=== PATIENT | female | born 1950 | race Caucasian/White ===

== ENCOUNTER 2019-06-10 08:49 | Inpatient (IN) | payer MEDICARE ==
[2019-06-10] MEDS ORDERED: IPRATROPIUM-ALBUTEROL 3 ML NEB INHALATION STA (08:57)
--- NOTE | 2019-06-10 09:02 | ED ---
General Adult HPI - General Chief complaint: Shortness of Breath Stated complaint: FRANC Time Seen by Provider: 06/10/19 08:51 Source: patient, EMS, RN notes reviewed Mode of arrival: EMS Limitations: no limitations - History of Present Illness Initial comments: Patient is a pleasant 68-year-old female presenting to the emergency department with difficulty breathing. Onset of symptoms was a few days ago. Patient has had occasional fevers. Mild cough. Symptoms are similar to previous COPD. No chest pain. No leg pain or leg swelling. Patient had oxygen saturation in the upper 80s by EMS. Patient feels much improved with CPAP now BiPAP. Patient is on home oxygen at home. - Related Data Home Medications Medication Instructions Recorded Confirmed Albuterol Nebulized [Ventolin 2.5 mg INHALATION RT-Q4H PRN 05/22/19 06/10/19 Nebulized] Albuterol Sulfate [Proair Hfa] 1 - 2 puff INHALATION RT-Q6H PRN 05/22/19 06/10/19 Budesonide/Formoterol Fumarate 2 puff INHALATION RT-BID 05/22/19 06/10/19 [Symbicort 160-4.5 Mcg Inhaler] Levothyroxine Sodium [Synthroid] 88 mcg PO DAILY 05/22/19 06/10/19 Montelukast [Singulair] 10 mg PO HS 05/22/19 06/10/19 Pravastatin Sodium [Pravachol] 40 mg PO HS 05/22/19 06/10/19 Sertraline [Zoloft] 150 mg PO DAILY 05/22/19 06/10/19 Thyroid,Pork [Timekeeping Supervisor Thyroid] 30 mg PO DAILY 05/22/19 06/10/19 Tiotropium 18 Mcg/Puff [Spiriva] 1 puff INHALATION RT-DAILY 05/22/19 06/10/19 amLODIPine [Norvasc] 10 mg PO DAILY 05/22/19 06/10/19 glipiZIDE [Glucotrol] 10 mg PO AC-BID 05/22/19 06/10/19 Fluticasone Nasal [place] [Flonase 2 spr EA NOSTRIL DAILY 06/10/19 06/10/19 Nasal [place]] Previous Rx's Medication Instructions Recorded Ipratropium-Albuterol Nebulize 3 ml INHALATION QID ampul.neb 05/22/19 [Duoneb 0.5 mg-3 mg/3 ml Soln] Insulin Glargine [Lantus] 65 unit SQ HS #0 05/26/19 hydrALAZINE HCL 25 mg PO TID #90 tablet 05/26/19 Allergies Allergy/AdvReac Type Severity Reaction Status Date / Time Penicillins Allergy Anaphylaxis Verified 06/10/19 09:46 zolpidem [From Ambien] AdvReac Confusion Verified 06/10/19 09:46 Review of Systems ROS Statement: Those systems with pertinent positive or pertinent negative responses have been documented in the HPI. ROS Other: All systems not noted in ROS Statement are negative. Constitutional: Denies: fever Eyes: Denies: eye pain ENT: Denies: ear pain Respiratory: Reports: as per HPI, dyspnea Cardiovascular: Denies: chest pain Endocrine: Reports: fatigue Gastrointestinal: Denies: abdominal pain Genitourinary: Denies: dysuria Musculoskeletal: Denies: back pain Skin: Denies: rash Neurological: Denies: weakness Past Medical History Past Medical History: COPD, Diabetes Mellitus, Hypertension Additional Past Medical History / Comment(s): ARDS secondary to pneumonia more than 10 years ago requiring tracheostomy tube insertion, COPD with established FEV1 of 41% of predicted, diabetes mellitus, hypertension, history of morbid obesity History of Any Multi-Drug Resistant Organisms: None Reported Past Surgical History: Cholecystectomy, Hysterectomy Past Anesthesia/Blood Transfusion Reactions: No Reported Reaction Past Psychological History: No Psychological Hx Reported Smoking Status: Former smoker Past Alcohol Use History: None Reported Past Drug Use History: None Reported - Past Family History Mother Family Medical History: Congestive Heart Failure (CHF), Diabetes Mellitus Additional Family Medical History / Comment(s): The patient's mother had congestion heart failure and diabetes mellitus in the father had Parkinson's disease. General Exam Limitations: no limitations General appearance: alert, in no apparent distress Head exam: Present: atraumatic Eye exam: Present: normal appearance, PERRL Neck exam: Present: normal inspection Respiratory exam: Present: wheezes, decreased breath sounds, prolonged expiratory Cardiovascular Exam: Present: regular rate, normal rhythm GI/Abdominal exam: Present: soft. Absent: tenderness Extremities exam: Present: normal inspection. Absent: pedal edema, calf tenderness Neurological exam: Present: alert Psychiatric exam: Present: normal affect, normal mood Skin exam: Present: normal color Course Vital Signs 06/10/19 06/10/19 06/10/19 08:49 08:59 09:01 Temperature 98.5 F Pulse Rate 87 86 Respiratory 30 H 30 H 26 H Rate Blood Pressure 175/79 O2 Sat by Pulse 94 L Oximetry 06/10/19 09:12 Temperature Pulse Rate 86 Respiratory 20 Rate Blood Pressure O2 Sat by Pulse Oximetry EKG Findings - EKG Comments: EKG Findings:: Normal sinus rhythm with a rate of 88. GA 134. QRS 78. QT 328. QTC 396. Normal axis. Normal QRS. No acute ST change Medical Decision Making - Medical Decision Making Patient reevaluated and resting comfortably in bed on BiPAP. We'll attempt removal of BiPAP. Patient and family updated on results and plan. Case discussed in detail with Dr. Oliva, who will admit covering for Dr. Salas. - Lab Data Result diagrams: 06/10/19 09:08 06/10/19 09:08 Lab Results 06/10/19 06/10/19 06/10/19 Range/Units 09:08 09:08 09:08 WBC 8.9 (3.8-10.6) k/uL RBC 3.90 (3.80-5.40) m/uL Hgb 8.7 L D (11.4-16.0) gm/dL Hct 30.4 L (34.0-46.0) % MCV 78.0 L (80.0-100.0) fL MCH 22.3 L (25.0-35.0) pg MCHC 28.6 L (31.0-37.0) g/dL RDW 16.1 H (11.5-15.5) % Plt Count 123 L D (150-450) k/uL Neutrophils % 87 % Lymphocytes % 7 % Monocytes % 4 % Eosinophils % 1 % Basophils % 0 % Neutrophils # 7.7 (1.3-7.7) k/uL Lymphocytes # 0.6 L (1.0-4.8) k/uL Monocytes # 0.4 (0-1.0) k/uL Eosinophils # 0.1 (0-0.7) k/uL Basophils # 0.0 (0-0.2) k/uL Hypochromasia Marked Anisocytosis Slight Microcytosis Slight Sodium 137 (137-145) mmol/L Potassium 5.3 H (3.5-5.1) mmol/L Chloride 103 (98-107) mmol/L Carbon Dioxide 30 (22-30) mmol/L Anion Gap 4 mmol/L BUN 25 H (7-17) mg/dL Creatinine 1.15 H (0.52-1.04) mg/dL Est GFR (CKD-EPI)AfAm 57 (>60 ml/min/1.73 sqM) Est GFR (CKD-EPI)NonAf 49 (>60 ml/min/1.73 sqM) Glucose 298 H (74-99) mg/dL Calcium 8.8 (8.4-10.2) mg/dL Total Bilirubin 0.8 (0.2-1.3) mg/dL AST 18 (14-36) U/L ALT 28 (9-52) U/L Alkaline Phosphatase 83 (38-126) U/L NT-Pro-B Natriuret Pep 563 pg/mL Total Protein 5.7 L (6.3-8.2) g/dL Albumin 3.2 L (3.5-5.0) g/dL - Radiology Data Radiology results: image reviewed (Chest x-ray shows bilateral infiltrate and small effusion, correlate for interstitial chronic lung disease with possibility of superimposed pneumonitis or venous congestion. Patchy infiltrate left upper lobe.) Disposition Clinical Impression: COPD exacerbation, Multifocal pneumonia Disposition: ADMITTED IP TO THIS HOSP Is patient prescribed a controlled substance at d/c from ED?: No Referrals: Rhianna Salas DO [Primary Care Provider] - 1-2 days Decision Time: 11:09
--- NOTE | 2019-06-10 09:27 | XR ---
EXAMINATION TYPE: XR chest 1V portable DATE OF EXAM: 06/10/2019 COMPARISON: 05/25/2019 HISTORY: Shortness of breath TECHNIQUE: Single frontal view of the chest is obtained. FINDINGS: Interstitial pattern with cardiomegaly, bilateral infiltrate, and small effusion. More loc alized area of consolidation left upper lobe. Atherosclerotic change aorta. Pulmonary arteries are pr ominent correlate for pulmonary arterial hypertension. Underlying COPD suspected. IMPRESSION: Bilateral infiltrate and small effusion correlate for interstitial chronic lung disease with possibility of superimposed pneumonitis or venous congestion. Patchy infiltrate left upper lobe noted.
[2019-06-10 09:33] LABS: Anisocytosis Slight; Basophils % (A) 0 %; Eosinophils # (A) 0.1 k/uL (0-0.7); Eosinophils % (A) 1 %; HCT 30.4 % (34.0-46.0); Hypochromasia Marked; Lymphocytes # (A) 0.6 k/uL (1.0-4.8); Lymphocytes % (A) 7 %; MCH 22.3 pg (25.0-35.0); MCHC 28.6 g/dL (31.0-37.0); Mean Platelet Volume 6.9; Microcytosis Slight; Monocytes # (A) 0.4 k/uL (0-1.0); Monocytes % (A) 4 %; Neutrophils # (A) 7.7 k/uL (1.3-7.7); Neutrophils % (A) 87 %; RDW 16.1 % (11.5-15.5); WBC 8.9 k/uL (3.8-10.6)
[2019-06-10 09:36] LABS: Albumin 3.2 g/dL (3.5-5.0); Calcium 8.8 mg/dL (8.4-10.2); Potassium 5.3 mmol/L (3.5-5.1); Total Bilirubin 0.8 mg/dL (0.2-1.3); Total Protein 5.7 g/dL (6.3-8.2)
[2019-06-10 09:46] LABS: HGB 8.7 gm/dL (11.4-16.0)
[2019-06-10 09:58] LABS: Platelet Count 123 k/uL (150-450)
[2019-06-10] MEDS ORDERED: LEVOFLOXACIN 750MG-D5W PMX 750 MG in DEXTROSE/WATER 1 150ML.BAG IVPB STA (11:09)
[2019-06-10] MEDS ORDERED: PNEUMONIA PROTOCOL UTILIZED 1 EACH MISC PO PRN (11:09)
[2019-06-10] MEDS ORDERED: IPRATROPIUM-ALBUTEROL 3 ML NEB INHALATION PRN (11:09)
[2019-06-10] MEDS: SODIUM CHLORIDE 0.9% 1,000 ML IV SCH ×2 (11:55→20:22)
[2019-06-10] MEDS: IPRATROPIUM-ALBUTEROL 3 ML NEB INHALATION SCH ×3 (12:20→19:46)
[2019-06-10] MEDS: AZTREONAM 2 GM in SODIUM CHLORIDE 0.9% 100 ML IVPB SCH ×2 (14:46→20:21)
[2019-06-10] MEDS: amLODIPine 10 MG TAB PO SCH (15:48)
[2019-06-10] MEDS: hydrALAZINE HCL 25 MG TAB PO SCH ×2 (15:48→23:34)
[2019-06-10] MEDS: methylPREDNISolone SOD SUCCI 40 MG/ML 1 ML VIAL IV SCH ×2 (15:48→23:34)
[2019-06-10] MEDS: ACETAMINOPHEN TAB 325 MG TAB PO PRN (16:03)
--- NOTE | 2019-06-10 16:36 | P.CNPUL ---
<Amparo Crowder - Last Filed: 06/10/19 16:15> History of Present Illness Consult date: 06/10/19 Requesting physician: Sathish Banks Reason for consult: dyspnea, COPD, hypoxemia, pneumonia, abnormal CXR/CT Chief complaint: Shortness of breath, acute on chronic hypoxemia, low-grade fever History of present illness: This is a 68-year-old white female patient of Dr. Banks with history of advanced COPD, with baseline FEV1 of 0.76 L or 35% of predicted with severe diffusion abnormality, consistent with stage III COPD with chronic hypoxemic respiratory failure, patient wears 4 L of oxygen on a regular basis, other history includes diabetes, hypertension, hypothyroidism, obesity, previous episode of pneumonia with ARDS requiring intubation and mechanical ventilation, patient is a former smoker. Patient was recently hospitalized for pneumonia, the patient's chest x-ray showing bibasilar pulmonary infiltrates, patient was treated with a combination of cefepime and clindamycin, IV steroids, nebulized bronchodilators. She clinically improved, and was discharged home on 05/26/2019, on oral Cefdinir, prednisone taper. Patient is daughter lives with her and provides significant amount of support care and for her mother. She stated after the discharge patient was feeling good, until she finished the prednisone. 2 days after she finished the prednisone she started having increased nasal congestion, yesterday morning she started complaining of increased shortness of breath, she felt like she could not get air in, her daughter increased her oxygen flow to 5 L/m. She was giving him nebulized treatments, she then developed low-grade fevers, did have some cough with production of yellow sputum, she denied any chest pain, denied any hemoptysis, denied any nausea or vomiting, she did have a couple episodes of diarrhea, self- limiting. Patient complained of severe exertional dyspnea and desaturation into the low 80s, and this was also noted by the EMS staff. Chest x-ray was completely showing bilateral infiltrates and interstitial lung disease with possibility of superimposed pneumonitis or venous congestion, and patchy infiltrate in the left upper lobe, which is new from last chest x-ray. Lab work showed white blood cell count of 8.9, hemoglobin of 8.7, platelet count of 123, sodium is 137, potassium is 5.3, chloride is 103, CO2 is 30, BUN is 25, creatinine is 1.15, plasma lactic acid is 0.6, proBNP is within normal limits at 563. Patient is having diaphoresis, and sweating, she was placed on BiPAP support in view of the significantly increased work of breathing. Patient has been started on combination of Azactam and Levaquin, she has ALLERGIES to penicillins, blood cultures and sputum cultures have been sent and are pending at this time. Review of Systems All systems: negative Constitutional: Denies chills, Denies fever Eyes: denies blurred vision, denies pain Ears, nose, mouth and throat: Denies headache, Denies sore throat Cardiovascular: Denies chest pain, Denies shortness of breath Respiratory: Reports cough with sputum, Reports dyspnea, Reports home oxygen, Reports respiratory infections, Reports wheezing, Denies cough Gastrointestinal: Denies abdominal pain, Denies diarrhea, Denies nausea, Denies vomiting Genitourinary: Denies dysuria, Denies hematuria Musculoskeletal: Denies myalgias Integumentary: Denies pruritus, Denies rash Neurological: Denies numbness, Denies weakness Psychiatric: Denies anxiety, Denies depression Endocrine: Denies fatigue, Denies weight change Past Medical History Past Medical History: COPD, Diabetes Mellitus, Hypertension Additional Past Medical History / Comment(s): ARDS secondary to pneumonia more than 10 years ago requiring tracheostomy tube insertion, COPD with established FEV1 of 41% of predicted, diabetes mellitus, hypertension, history of morbid obesity History of Any Multi-Drug Resistant Organisms: None Reported Past Surgical History: Cholecystectomy, Hysterectomy Past Anesthesia/Blood Transfusion Reactions: No Reported Reaction Past Psychological History: No Psychological Hx Reported Smoking Status: Former smoker Past Alcohol Use History: None Reported Past Drug Use History: None Reported - Past Family History Mother Family Medical History: Congestive Heart Failure (CHF), Diabetes Mellitus Additional Family Medical History / Comment(s): The patient's mother had congestion heart failure and diabetes mellitus in the father had Parkinson's disease. Medications and Allergies Home Medications Medication Instructions Recorded Confirmed Type Albuterol Nebulized [Ventolin 2.5 mg INHALATION RT-Q4H PRN 05/22/19 06/10/19 History Nebulized] Albuterol Sulfate [Proair Hfa] 1 - 2 puff INHALATION RT-Q6H PRN 05/22/19 06/10/19 History Budesonide/Formoterol Fumarate 2 puff INHALATION RT-BID 05/22/19 06/10/19 History [Symbicort 160-4.5 Mcg Inhaler] Ipratropium-Albuterol Nebulize 3 ml INHALATION QID ampul.neb 05/22/19 06/10/19 Rx [Duoneb 0.5 mg-3 mg/3 ml Soln] Levothyroxine Sodium [Synthroid] 88 mcg PO DAILY 05/22/19 06/10/19 History Montelukast [Singulair] 10 mg PO HS 05/22/19 06/10/19 History Pravastatin Sodium [Pravachol] 40 mg PO HS 05/22/19 06/10/19 History Sertraline [Zoloft] 150 mg PO DAILY 05/22/19 06/10/19 History Thyroid,Pork [Wire Products Inspector Thyroid] 30 mg PO DAILY 05/22/19 06/10/19 History Tiotropium 18 Mcg/Puff [Spiriva] 1 puff INHALATION RT-DAILY 05/22/19 06/10/19 History amLODIPine [Norvasc] 10 mg PO DAILY 05/22/19 06/10/19 History glipiZIDE [Glucotrol] 10 mg PO AC-BID 05/22/19 06/10/19 History Insulin Glargine [Lantus] 65 unit SQ HS #0 05/26/19 06/10/19 Rx hydrALAZINE HCL 25 mg PO TID #90 tablet 05/26/19 06/10/19 Rx Fluticasone Nasal [place] [Flonase 2 spr EA NOSTRIL DAILY 06/10/19 06/10/19 History Nasal [place]] Allergies Allergy/AdvReac Type Severity Reaction Status Date / Time Penicillins Allergy Anaphylaxis Verified 06/10/19 09:46 zolpidem [From Ambien] AdvReac Confusion Verified 06/10/19 09:46 Physical Exam Vitals: Vital Signs Temp Pulse Pulse Resp BP BP Pulse Ox 06/10/19 16:04 98 06/10/19 16:00 99 F 91 18 194/85 95 06/10/19 15:26 91 26 H 06/10/19 15:16 90 27 H 06/10/19 14:59 98.4 F 103 H 22 180/79 93 L 06/10/19 12:37 90 09/03/19 12:22 91 06/10/19 12:00 80 18 171/69 91 L 06/10/19 11:32 95 06/10/19 09:12 86 20 06/10/19 09:01 86 26 H 06/10/19 08:59 30 H 06/10/19 08:49 98.5 F 87 30 H 175/79 94 L Intake and Output 06/10/19 06/10/19 06/10/19 06:59 14:59 22:59 Other: Weight 111.13 kg GENERAL EXAM: Alert, pleasant 68-year-old white female, 5 L of oxygen, easily desaturating to low 80s with any exertion even repositioning on the stretcher, intermittently going to BiPAP support, slightly diaphoretic and sweating, comfortable in no apparent distress. HEAD: Normocephalic/atraumatic. EYES: Normal reaction of pupils, equal size. Conjunctiva pink, sclera white. NOSE: Clear with pink turbinates. THROAT: No erythema or exudates. NECK: No masses, no JVD, no thyroid enlargement, no adenopathy. CHEST: No chest wall deformity. Symmetrical expansion. LUNGS: Equal air entry with scattered bibasilar crackles and diminished breath sounds with minimal end expiratory wheezing CVS: Regular rate and rhythm, normal S1 and S2, no gallops, no murmurs, no rubs ABDOMEN: Soft, nontender. No hepatosplenomegaly, normal bowel sounds, no guarding or rigidity. EXTREMITIES: No clubbing, no edema, no cyanosis, 2+ pulses and upper and lower extremities. MUSCULOSKELETAL: Muscle strength and tone normal. SPINE: No scoliosis or deformity SKIN: No rashes CENTRAL NERVOUS SYSTEM: Alert and oriented -3. No focal deficits, tone is normal in all 4 extremities. PSYCHIATRIC: Alert and oriented -3. Appropriate affect. Intact judgment and insight. Results - Laboratory Findings CBC and BMP: 06/10/19 09:08 06/10/19 09:08 Abnormal lab findings: Abnormal Labs 06/10/19 06/10/19 06/10/19 09:08 09:08 11:45 Hgb 8.7 L D Hct 30.4 L MCV 78.0 L MCH 22.3 L MCHC 28.6 L RDW 16.1 H Plt Count 123 L D Lymphocytes # 0.6 L Potassium 5.3 H BUN 25 H Creatinine 1.15 H Glucose 298 H Plasma Lactic Acid Uday 0.6 L Total Protein 5.7 L Albumin 3.2 L - Diagnostic Findings Chest x-ray: report reviewed Assessment and Plan Plan: Assessment: #1. Acute on chronic hypoxemic respiratory failure secondary to acute pneumonia involving the left lung and interstitial lung disease/pneumonitis #2. Acute exacerbation of advanced chronic obstructive pulmonary disease related to the above #3. Recent hospitalization for acute community acquired pneumonia involving bilateral lower lobes, she was treated with clindamycin and cefepime and discharged home on oral Omnicef #4. History of stage III COPD, with the baseline FEV1 of 0.76 L or 35% of predicted with severe diffusion abnormality, she is on chronic home oxygen at 4 L #5. Morbid obesity with a BMI of 44.8 kg/m #6. Diabetes mellitus type 2 #7. Hypothyroidism #8. Impaired performance and functional status secondary to poor lung function and multiple other chronic comorbidities Plan: Agree with current antibiotic coverage, will await the results the blood and sp utum culture, agree with IV Solu-Medrol, nebulized bronchodilators, [place], we will add Perforomist, will restart patient's home meds including her antihypertensives. Pro-calcitonin level has been ordered and sent and is pending at this time, blood cultures and sputum cultures are pending, and cont inue BiPAP support at current settings of 10 and 5 and FiO2 of 40% as needed for increased respiratory work of breathing and fatigue. Monitor fever pattern, blood pressure, and EKG rhythm. Lactic acid is nonelevated, mentation is appropriate, no evidence of delirium. BNP was not elevated, making the possibility of congestive heart failure not likely. We will add GI and DVT prophylaxis. We'll continue to follow and P statement I performed a history & physical examination of the patient and discussed their management with my nurse practitioner, Amparo Crowder. I reviewed the nurse practitioner's note and agree with the documented findings and plan of care. Lung sounds are diminished, with expiratory wheezes. The findings and the impression was discussed with the patient. I attest to the documentation by the nurse practitioner. Time with Patient: Greater than 30 <Juan Cunningham - Last Filed: 06/11/19 07:21> Physical Exam Vitals: Vital Signs Temp Pulse Pulse Resp BP BP Pulse Ox 06/11/19 04:00 98 F 85 20 185/85 97 06/11/19 00:00 86 18 151/76 95 06/10/19 20:24 92 06/10/19 20:10 92 06/10/19 20:09 90 06/10/19 20:00 97.6 F 95 18 176/73 93 L 06/10/19 19:53 90 24 06/10/19 19:52 92 L 06/10/19 16:04 98 06/10/19 16:00 99 F 91 18 194/85 95 06/10/19 15:26 91 26 H 06/10/19 15:16 90 27 H 06/10/19 14:59 98.4 F 103 H 22 180/79 93 L 06/10/19 12:37 90 06/10/19 12:22 91 06/10/19 12:00 80 18 171/69 91 L 06/10/19 11:32 95 06/10/19 09:12 86 20 06/10/19 09:01 86 26 H 06/10/19 08:59 30 H 06/10/19 08:49 98.5 F 87 30 H 175/79 94 L Intake and Output 06/10/19 06/11/19 06/11/19 22:59 06:59 14:59 Intake Total 100.533 Balance 100.533 Intake: Intake, IV Titration 100.533 Amount Insulin Regular 100 unit 100.533 In Sodium Chloride 0.9% 100 ml @ Titrate IV .Q0M [facility] Rx#:[id number] Other: # Voids 2 Weight 116.9 kg Results - Laboratory Findings CBC and BMP: 06/10/19 09:08 06/10/19 09:08 Abnormal lab findings: Abnormal Labs 06/10/19 06/10/19 06/10/19 09:08 09:08 09:08 Hgb 8.7 L D Hct 30.4 L MCV 78.0 L MCH 22.3 L MCHC 28.6 L RDW 16.1 H Plt Count 123 L D Lymphocytes # 0.6 L Potassium 5.3 H BUN 25 H Creatinine 1.15 H Glucose 298 H POC Glucose (mg/dL) Plasma Lactic Acid Uday Total Protein 5.7 L Albumin 3.2 L Procalcitonin 0.54 H 06/10/19 06/10/19 06/10/19 11:45 16:55 21:15 Hgb Hct MCV MCH MCHC RDW Plt Count Lymphocytes # Potassium BUN Creatinine Glucose POC Glucose (mg/dL) 493 H >600 H Plasma Lactic Acid Uday 0.6 L Total Protein Albumin Procalcitonin 06/10/19 06/10/19 06/11/19 21:30 23:16 00:18 Hgb Hct MCV MCH MCHC RDW Plt Count Lymphocytes # Potassium BUN Creatinine Glucose POC Glucose (mg/dL) 590 H 564 H 565 H Plasma Lactic Acid Udya Total Protein Albumin Procalcitonin 06/11/19 06/11/19 06/11/19 00:49 01:19 01:49 Hgb Hct MCV MCH MCHC RDW Plt Count Lymphocytes # Potassium BUN Creatinine Glucose POC Glucose (mg/dL) 465 H 391 H 337 H Plasma Lactic Acid Uday Total Protein Albumin Procalcitonin 06/11/19 06/11/19 06/11/19 02:16 02:45 05:23 Hgb Hct MCV MCH MCHC RDW Plt Count Lymphocytes # Potassium BUN Creatinine Glucose POC Glucose (mg/dL) 259 H 235 H 230 H Plasma Lactic Acid Uday Total Protein Albumin Procalcitonin Assessment and Plan Plan: Doubt any ILD and the presentation is either consistent with interstitial pneumonia or fluid. Will continue ABX and will diurese the patient and will FU the CXR. Will consider a bronchoscopy if no improvement in the pulmonary status
[2019-06-10 16:59] LABS: Glucose,Whole Blood 493 mg/dL (75-99)
[2019-06-10] MEDS: HEPARIN SODIUM,PORCINE 5,000 UNIT/ML 1 ML VIAL SQ SCH (18:07)
[2019-06-10] MEDS: PANTOPRAZOLE 40 MG/10 ML VIAL IVP SCH (18:08)
[2019-06-10] MEDS: INSULIN ASPART (NovoLOG) 100 UNIT/ML VIAL SQ SCH (18:08)
[2019-06-10] MEDS ORDERED: ARTIFICIAL TEARS-HYPROMELLOSE DROPS 15 ML BTL BOTH EYES PRN (19:26)
[2019-06-10] MEDS: BUDESONIDE 1 MG/2 ML NEBU INHALATION SCH (19:46)
[2019-06-10] MEDS: FORMOTEROL FUMARATE 20 MCG/2 ML NEBU INHALATION SCH (19:46)
[2019-06-10] MEDS: MONTELUKAST 10 MG TAB PO SCH (20:22)
[2019-06-10] MEDS: PRAVASTATIN SODIUM 40 MG TAB PO SCH (20:22)
[2019-06-10] MEDS ORDERED: NON-FORMULARY DRUG (Insulin Glargine 45 UNIT) SQ SCH (21:00)
[2019-06-10] MEDS ORDERED: INSULIN DETEMIR (LEVEMIR) 100 UNIT/ML SYR SQ SCH (21:00)
[2019-06-10 21:16] LABS: Glucose,Whole Blood >600 mg/dL (75-99)
[2019-06-10 21:32] LABS: Glucose,Whole Blood 590 mg/dL (75-99)
[2019-06-10 23:17] LABS: Glucose,Whole Blood 564 mg/dL (75-99)
[2019-06-10] MEDS: INSULIN REGULAR 100 UNIT in SODIUM CHLORIDE 0.9% 100 ML IV SCH (23:31)
[2019-06-11] MEDS: HEPARIN SODIUM,PORCINE 5,000 UNIT/ML 1 ML VIAL SQ SCH ×3 (00:20→16:56)
[2019-06-11 00:30] LABS: Glucose,Whole Blood 565 mg/dL (75-99)
[2019-06-11 00:50] LABS: Glucose,Whole Blood 465 mg/dL (75-99)
[2019-06-11 01:21] LABS: Glucose,Whole Blood 391 mg/dL (75-99)
[2019-06-11 01:50] LABS: Glucose,Whole Blood 337 mg/dL (75-99)
[2019-06-11 02:18] LABS: Glucose,Whole Blood 259 mg/dL (75-99)
[2019-06-11 02:47] LABS: Glucose,Whole Blood 235 mg/dL (75-99)
[2019-06-11] MEDS: INSULIN REGULAR 100 UNIT in SODIUM CHLORIDE 0.9% 100 ML IV SCH ×3 (05:24→22:25)
[2019-06-11] MEDS: AZTREONAM 2 GM in SODIUM CHLORIDE 0.9% 100 ML IVPB SCH ×3 (05:25→20:06)
[2019-06-11 05:26] LABS: Glucose,Whole Blood 230 mg/dL (75-99)
[2019-06-11] MEDS: LEVOTHYROXINE 88 MCG TAB PO SCH (07:00)
[2019-06-11] MEDS: SODIUM CHLORIDE 0.9% 1,000 ML IV SCH ×2 (07:00→20:06)
[2019-06-11 07:30] LABS: Glucose,Whole Blood 315 mg/dL (75-99)
[2019-06-11] MEDS: IPRATROPIUM-ALBUTEROL 3 ML NEB INHALATION SCH ×4 (07:46→19:49)
[2019-06-11] MEDS: BUDESONIDE 1 MG/2 ML NEBU INHALATION SCH ×2 (07:46→19:50)
[2019-06-11] MEDS: FORMOTEROL FUMARATE 20 MCG/2 ML NEBU INHALATION SCH ×2 (07:46→19:49)
--- NOTE | 2019-06-11 08:37 | XR ---
EXAMINATION TYPE: XR chest 2V DATE OF EXAM: 06/11/2019 COMPARISON: 06/10/2019 HISTORY: Pneumonia. Follow-up exam. Shortness of breath. TECHNIQUE: Frontal and lateral views of the chest are obtained. FINDINGS: There is redemonstration of multifocal patchy opacities predominating within the lower jasper gs and left upper lateral lung. Moderate interstitial pulmonary edema and pulmonary vascular congesti on are stable. Cardiomediastinal silhouette is enlarged. Pulmonary per inflation and flattening of th e diaphragms represents underlying COPD. Minimal degenerative changes of the spine. IMPRESSION: Redemonstration of moderate interstitial pulmonary edema and pulmonary vascular congesti on, fluid overload and multifocal opacities may represent confluent edema or multifocal pneumonia. Un derlying COPD.
[2019-06-11] MEDS: PANTOPRAZOLE 40 MG/10 ML VIAL IVP SCH (08:48)
[2019-06-11] MEDS: amLODIPine 10 MG TAB PO SCH (08:49)
[2019-06-11] MEDS: methylPREDNISolone SOD SUCCI 40 MG/ML 1 ML VIAL IV SCH ×3 (08:49→23:00)
[2019-06-11] MEDS: hydrALAZINE HCL 25 MG TAB PO SCH ×3 (08:49→22:58)
[2019-06-11] MEDS: SERTRALINE 100 MG TAB PO SCH (08:49)
[2019-06-11] MEDS: THYROID, PORK 30 MG TAB PO SCH (08:50)
[2019-06-11] MEDS: FUROSEMIDE 10 MG/ML 4 ML VIAL IV SCH ×3 (08:50→23:00)
[2019-06-11] MEDS ORDERED: THYROID, PORK 30 MG TAB PO SCH (09:00)
[2019-06-11] MEDS ORDERED: amLODIPine 10 MG TAB PO SCH (09:00)
--- NOTE | 2019-06-11 09:09 | P.HPIM ---
History of Present Illness H&P Date: 06/11/19 Nicole Moran is a 68-year-old female with a past medical history significant for stage III COPD, chronic hypoxic respiratory failure on 4 L home oxygen, type 2 diabetes, hypothyroid, hypertension, history of ARDS requiring intubation and mechanical ventilation. She presents to the emergency department with shortness of breath and increased oxygen requirements over the past few days. She was recently admitted for multifocal pneumonia and treated at that time with cefepime, IV steroids, clindamycin, inhaled bronchodilators; patient was discharged with steroid taper and Omnicef. She states she initially felt well but after she completed her steroids she began to experience increased secretion s and shortness of breath. Yesterday she required 5 L oxygen and so presented to the emergency department. She also complains of low-grade fevers at home and chills with T-max of 99. She is a former smoker. In the ED she was tachypneic and hypoxic chest x-ray showed multifocal pneumonia with bilateral infiltrates and interstitial prominence WBC 8.9 BNP 550 pro calcitonin 0.5. Patient initially required BiPAP but was transitioned to high flow. She was started on aztreonam and Levaquin, as well as IV Solu-Medrol and inhaled steroids and DuoNeb's. Today, she feels her breathing is improved and oxygen requirements are currently at 6 L O2. Past Medical History Past Medical History: COPD, Diabetes Mellitus, Hypertension Additional Past Medical History / Comment(s): ARDS secondary to pneumonia more than 10 years ago requiring tracheostomy tube insertion, COPD with established FEV1 of 41% of predicted, diabetes mellitus, hypertension, history of morbid obesity History of Any Multi-Drug Resistant Organisms: None Reported Past Surgical History: Cholecystectomy, Hysterectomy Past Anesthesia/Blood Transfusion Reactions: No Reported Reaction Past Psychological History: No Psychological Hx Reported Smoking Status: Former smoker Past Alcohol Use History: None Reported Past Drug Use History: None Reported - Past Family History Mother Family Medical History: Congestive Heart Failure (CHF), Diabetes Mellitus Additional Family Medical History / Comment(s): The patient's mother had congestion heart failure and diabetes mellitus in the father had Parkinson's disease. Medications and Allergies Home Medications Medication Instructions Recorded Confirmed Type Albuterol Nebulized [Ventolin 2.5 mg INHALATION RT-Q4H PRN 05/22/19 06/10/19 History Nebulized] Albuterol Sulfate [Proair Hfa] 1 - 2 puff INHALATION RT-Q6H PRN 05/22/19 06/10/19 History Budesonide/Formoterol Fumarate 2 puff INHALATION RT-BID 05/22/19 06/10/19 History [Symbicort 160-4.5 Mcg Inhaler] Ipratropium-Albuterol Nebulize 3 ml INHALATION QID ampul.neb 05/22/19 06/10/19 Rx [Duoneb 0.5 mg-3 mg/3 ml Soln] Levothyroxine Sodium [Synthroid] 88 mcg PO DAILY 05/22/19 06/10/19 History Montelukast [Singulair] 10 mg PO HS 05/22/19 06/10/19 History Pravastatin Sodium [Pravachol] 40 mg PO HS 05/22/19 06/10/19 History Sertraline [Zoloft] 150 mg PO DAILY 05/22/19 06/10/19 History Thyroid,Pork [[employer] Thyroid] 30 mg PO DAILY 05/22/19 06/10/19 History Tiotropium 18 Mcg/Puff [Spiriva] 1 puff INHALATION RT-DAILY 05/22/19 06/10/19 History amLODIPine [Norvasc] 10 mg PO DAILY 05/22/19 06/10/19 History glipiZIDE [Glucotrol] 10 mg PO AC-BID 05/22/19 06/10/19 History Insulin Glargine [Lantus] 65 unit SQ HS #0 05/26/19 06/10/19 Rx hydrALAZINE HCL 25 mg PO TID #90 tablet 05/26/19 06/10/19 Rx Fluticasone Nasal [place] [Flonase 2 spr EA NOSTRIL DAILY 06/10/19 06/10/19 History Nasal [place]] Allergies Allergy/AdvReac Type Severity Reaction Status Date / Time Penicillins Allergy Anaphylaxis Verified 06/10/19 09:46 zolpidem [From Ambien] AdvReac Confusion Verified 06/10/19 09:46 Physical Exam Vitals: Vital Signs Temp Pulse Pulse Resp BP BP Pulse Ox 06/11/19 08:12 88 06/11/19 08:03 84 06/11/19 08:02 84 06/11/19 07:50 80 96 06/11/19 04:00 98 F 85 20 185/85 97 06/11/19 00:00 86 18 151/76 95 06/10/19 20:24 92 06/10/19 20:10 92 06/10/19 20:09 90 06/10/19 20:00 97.6 F 95 18 176/73 93 L 06/10/19 19:53 90 24 06/10/19 19:52 92 L 06/10/19 16:04 98 06/10/19 16:00 99 F 91 18 194/85 95 06/10/19 15:26 91 26 H 06/10/19 15:16 90 27 H 06/10/19 14:59 98.4 F 103 H 22 180/79 93 L 06/10/19 12:37 90 06/10/19 12:22 91 06/10/19 12:00 80 18 171/69 91 L 06/10/19 11:32 95 06/10/19 09:12 86 20 06/10/19 09:01 86 26 H 06/10/19 08:59 30 H Intake and Output 06/10/19 06/11/19 06/11/19 22:59 06:59 14:59 Intake Total 100.533 600 Balance 100.533 600 Intake: Intake, IV Titration 100.533 Amount Insulin Regular 100 unit 100.533 In Sodium Chloride 0.9% 100 ml @ Titrate IV .Q0M [facility] Rx#:[id number] Oral 600 Other: # Voids 2 Weight 116.9 kg General: non toxic, no distress, appears at stated age Derm: warm, dry Head: atraumatic, normocephalic, symmetric Eyes: EOMI, no lid lag, anicteric sclera Mouth: no lip lesion, mucus membranes moist Cardiovascular: S1S2 reg, systolic murmur, positive posterior tibial pulse bilateral, Lungs: Poor air entry, rhonchi throughout, no rales, no accessory muscle use Abdominal: soft, nontender to palpation, no guarding, no appreciable organome sofia Ext: no gross muscle atrophy, 1+ edema, no contractures Neuro: CN II-XI grossly intact, no focal neuro deficits Psych: Alert, oriented, appropriate affect Results CBC & Chem 7: 06/10/19 09:08 06/10/19 09:08 Labs: Abnormal Lab Results - Last 24 Hours (Table) 06/10/19 06/10/19 06/10/19 Range/Units 09:08 09:08 09:08 Hgb 8.7 L D (11.4-16.0) gm/dL Hct 30.4 L (34.0-46.0) % MCV 78.0 L (80.0-100.0) fL MCH 22.3 L (25.0-35.0) pg MCHC 28.6 L (31.0-37.0) g/dL RDW 16.1 H (11.5-15.5) % Plt Count 123 L D (150-450) k/uL Lymphocytes # 0.6 L (1.0-4.8) k/uL Potassium 5.3 H (3.5-5.1) mmol/L BUN 25 H (7-17) mg/dL Creatinine 1.15 H (0.52-1.04) mg/dL Glucose 298 H (74-99) mg/dL POC Glucose (mg/dL) (75-99) mg/dL Plasma Lactic Acid Uday (0.7-2.0) mmol/L Total Protein 5.7 L (6.3-8.2) g/dL Albumin 3.2 L (3.5-5.0) g/dL Procalcitonin 0.54 H (0.02-0.09) ng/mL 06/10/19 06/10/19 06/10/19 Range/Units 11:45 16:55 21:15 Hgb (11.4-16.0) gm/dL Hct (34.0-46.0) % MCV (80.0-100.0) fL MCH (25.0-35.0) pg MCHC (31.0-37.0) g/dL RDW (11.5-15.5) % Plt Count (150-450) k/uL Lymphocytes # (1.0-4.8) k/uL Potassium (3.5-5.1) mmol/L BUN (7-17) mg/dL Creatinine (0.52-1.04) mg/dL Glucose (74-99) mg/dL POC Glucose (mg/dL) 493 H >600 H (75-99) mg/dL Plasma Lactic Acid Uday 0.6 L (0.7-2.0) mmol/L Total Protein (6.3-8.2) g/dL Albumin (3.5-5.0) g/dL Procalcitonin (0.02-0.09) ng/mL 06/10/19 06/10/19 06/11/19 Range/Units 21:30 23:16 00:18 Hgb (11.4-16.0) gm/dL Hct (34.0-46.0) % MCV (80.0-100.0) fL MCH (25.0-35.0) pg MCHC (31.0-37.0) g/dL RDW (11.5-15.5) % Plt Count (150-450) k/uL Lymphocytes # (1.0-4.8) k/uL Potassium (3.5-5.1) mmol/L BUN (7-17) mg/dL Creatinine (0.52-1.04) mg/dL Glucose (74-99) mg/dL POC Glucose (mg/dL) 590 H 564 H 565 H (75-99) mg/dL Plasma Lactic Acid Uday (0.7-2.0) mmol/L Total Protein (6.3-8.2) g/dL Albumin (3.5-5.0) g/dL Procalcitonin (0.02-0.09) ng/mL 06/11/19 06/11/19 06/11/19 Range/Units 00:49 01:19 01:49 Hgb (11.4-16.0) gm/dL Hct (34.0-46.0) % MCV (80.0-100.0) fL MCH (25.0-35.0) pg MCHC (31.0-37.0) g/dL RDW (11.5-15.5) % Plt Count (150-450) k/uL Lymphocytes # (1.0-4.8) k/uL Potassium (3.5-5.1) mmol/L BUN (7-17) mg/dL Creatinine (0.52-1.04) mg/dL Glucose (74-99) mg/dL POC Glucose (mg/dL) 465 H 391 H 337 H (75-99) mg/dL Plasma Lactic Acid Uday (0.7-2.0) mmol/L Total Protein (6.3-8.2) g/dL Albumin (3.5-5.0) g/dL Procalcitonin (0.02-0.09) ng/mL 06/11/19 06/11/19 06/11/19 Range/Units 02:16 02:45 05:23 Hgb (11.4-16.0) gm/dL Hct (34.0-46.0) % MCV (80.0-100.0) fL MCH (25.0-35.0) pg MCHC (31.0-37.0) g/dL RDW (11.5-15.5) % Plt Count (150-450) k/uL Lymphocytes # (1.0-4.8) k/uL Potassium (3.5-5.1) mmol/L BUN (7-17) mg/dL Creatinine (0.52-1.04) mg/dL Glucose (74-99) mg/dL POC Glucose (mg/dL) 259 H 235 H 230 H (75-99) mg/dL Plasma Lactic Acid Uday (0.7-2.0) mmol/L Total Protein (6.3-8.2) g/dL Albumin (3.5-5.0) g/dL Procalcitonin (0.02-0.09) ng/mL 06/11/19 Range/Units 07:28 Hgb (11.4-16.0) gm/dL Hct (34.0-46.0) % MCV (80.0-100.0) fL MCH (25.0-35.0) pg MCHC (31.0-37.0) g/dL RDW (11.5-15.5) % Plt Count (150-450) k/uL Lymphocytes # (1.0-4.8) k/uL Potassium (3.5-5.1) mmol/L BUN (7-17) mg/dL Creatinine (0.52-1.04) mg/dL Glucose (74-99) mg/dL POC Glucose (mg/dL) 315 H (75-99) mg/dL Plasma Lactic Acid Uday (0.7-2.0) mmol/L Total Protein (6.3-8.2) g/dL Albumin (3.5-5.0) g/dL Procalcitonin (0.02-0.09) ng/mL Assessment and Plan (1) COPD exacerbation Current Visit: Yes Status: Acute Code(s): J44.1 - CHRONIC OBSTRUCTIVE PULMONARY DISEASE W (ACUTE) EXACERBATION SNOMED Code(s): 713629779 (2) Multifocal pneumonia Current Visit: Yes Status: Acute Code(s): J18.9 - PNEUMONIA, UNSPECIFIED ORGANISM SNOMED Code(s): 942409481 (3) Acute respiratory failure with hypoxia Current Visit: No Status: Acute Code(s): J96.01 - ACUTE RESPIRATORY FAILURE WITH HYPOXIA SNOMED Code(s): 95149605 (4) Hypothyroid Current Visit: No Status: Acute Code(s): E03.9 - HYPOTHYROIDISM, UNSPECIFIED SNOMED Code(s): 09238553 (5) Type 2 diabetes mellitus Current Visit: No Status: Acute Code(s): E11.9 - TYPE 2 DIABETES MELLITUS WITHOUT COMPLICATIONS SNOMED Code(s): 06832932 Plan: 1. Acute hypoxic respiratory failure. Secondary to pneumonia. procalcitonin 0.5. Blood culture and sputum culture sent. Continue aztreonam and Levaquin. DuoNeb's, inhaled corticosteroids, IV Solu-Medrol 2. Multifocal pneumonia. Pulmonology consulted, AM CXR 3. COPD exacerbation 4. T2DM. Insulin gtt with IV steroids 5. HTN, hypothyroid. Continue home medications
[2019-06-11 09:30] LABS: Glucose,Whole Blood 379 mg/dL (75-99)
[2019-06-11 10:07] LABS: Calcium 8.8 mg/dL (8.4-10.2); Potassium 5.5 mmol/L (3.5-5.1)
[2019-06-11 10:20] LABS: Anisocytosis Slight; Basophils % (A) 0 %; Eosinophils % (A) 0 %; HCT 28.8 % (34.0-46.0); HGB 8.4 gm/dL (11.4-16.0); Hypochromasia Marked; Lymphocytes # (A) 0.3 k/uL (1.0-4.8); Lymphocytes % (A) 4 %; MCH 22.3 pg (25.0-35.0); MCHC 29.1 g/dL (31.0-37.0); MCV 76.5 fL (80.0-100.0); Mean Platelet Volume 6.7; Microcytosis Slight; Monocytes # (A) 0.2 k/uL (0-1.0); Monocytes % (A) 2 %; Neutrophils % (A) 93 %; Platelet Count 122 k/uL (150-450); RBC 3.76 m/uL (3.80-5.40); RDW 16.5 % (11.5-15.5); WBC 7.5 k/uL (3.8-10.6)
[2019-06-11 11:37] LABS: Glucose,Whole Blood 378 mg/dL (75-99)
--- NOTE | 2019-06-11 13:01 | ECHOF ---
Referral Reason:shortness of breath MEASUREMENTS -------- HEIGHT: 157.5 cm WEIGHT: 116.6 kg BP: 185/85 RVIDd: 2.5 cm (< 3.3) IVSd: 1.2 cm (0.6 - 1.1) LVIDd: 4.1 cm (3.9 - 5.3) LVPWd: 1.5 cm (0.6 - 1.1) IVSs: 1.6 cm LVIDs: 2.9 cm LVPWs: 1.8 cm LAESV Index (A-L): 29.50 ml/m Ao Diam: 3.0 cm (2.0 - 3.7) AV Cusp: 2.0 cm (1.5 - 2.6) LA Diam: 3.1 cm (2.7 - 3.8) MV EXCURSION: 9.892 mm (> 18.000) MV EF SLOPE: 86 mm/s (70 - 150) EPSS: 0.5 cm MV E Anjum: 1.06 m/s MV DecT: 208 ms MV A Anjum: 1.19 m/s MV E/A Ratio: 0.90 AV maxP.01 mmHg AV meanP.24 mmHg RAP: 5.00 mmHg RVSP: 44.53 mmHg FINDINGS -------- Sinus rhythm. This was a technically good study. The left ventricular size is normal. There is moderate concentric left ventricular hypertrophy. O verall left ventricular systolic function is normal with, an EF between 55 - 60 %. The diastolic fi lling pattern is normal for the age of the patient {E/E'}. The right ventricle is normal in size. LA is midly dilated 29-33ml/m2. The right atrial size is normal. Aneurysmal Interatrial septum. Aortic valve is trileaflet and is mildly thickened. There is mild aortic valve sclerosis. Peak/me an gradient across the Aortic Valve is 16.01mmHg / 8.24mmHg. The mitral valve is normal. The mitral valve leaflets are mildly thickened. Mild mitral regurgita tion is present. The tricuspid valve appears structurally normal. Mild tricuspid regurgitation present. There is m ild pulmonary hypertension. The right ventricular systolic pressure, as measured by Doppler, is 44. 53mmHg. There is no pulmonic regurgitation present. The aortic root size is normal. Normal inferior vena cava with normal inspiratory collapse consistent with estimated right atrial pre ssure of 5 mmHg. The flow patterns, measured by Doppler, appear normal. There is no pericardial effusion. CONCLUSIONS -------- 1. Sinus rhythm. 2. This was a technically good study. 3. The left ventricular size is normal. 4. There is moderate concentric left ventricular hypertrophy. 5. Overall left ventricular systolic function is normal with, an EF between 55 - 60 %. 6. The right ventricle is normal in size. 7. LA is midly dilated 29-33ml/m2. 8. The right atrial size is normal. 9. Aneurysmal Interatrial septum. 10. Aortic valve is trileaflet and is mildly thickened. 11. There is mild aortic valve sclerosis. 12. Peak/mean gradient across the Aortic Valve is 16.01mmHg / 8.24mmHg. 13. The mitral valve is normal. 14. The mitral valve leaflets are mildly thickened. 15. Mild mitral regurgitation is present. 16. The tricuspid valve appears structurally normal. 17. Mild tricuspid regurgitation present. 18. There is mild pulmonary hypertension. 19. The right ventricular systolic pressure, as measured by Doppler, is 44.53mmHg. 20. There is no pulmonic regurgitation present. 21. The aortic root size is normal. 22. Normal inferior vena cava with normal inspiratory collapse consistent with estimated right atrial pressure of 5 mmHg. 23. The flow patterns, measured by Doppler, appear normal. 24. There is no pericardial effusion. DIRECTOR OF ACQUISITION MARKETING: Carmen Marcial RDCS
[2019-06-11 13:39] LABS: Glucose,Whole Blood 367 mg/dL (75-99)
--- NOTE | 2019-06-11 14:01 | P.PN ---
Subjective Progress Note Date: 06/11/19 Principal diagnosis: Acute on chronic hypoxemic respiratory failure This is a 68-year-old white female patient of Dr. Banks with history of advanced COPD, with baseline FEV1 of 0.76 L or 35% of predicted with severe diffusion abnormality, consistent with stage III COPD with chronic hypoxemic respiratory failure, patient wears 4 L of oxygen on a regular basis, other history includes diabetes, hypertension, hypothyroidism, obesity, previous episode of pneumonia with ARDS requiring intubation and mechanical ventilation, patient is a former smoker. Patient was recently hospitalized for pneumonia, the patient's chest x-ray showing bibasilar pulmonary infiltrates, patient was treated with a combination of cefepime and clindamycin, IV steroids, nebulized bronchodilators. She clinically improved, and was discharged home on 05/26/2019, on oral Cefdinir, prednisone taper. Patient is daughter lives with her and provides significant amount of support care and for her mother. She stated after the discharge patient was feeling good, until she finished the prednisone. 2 days after she finished the prednisone she started having increased nasal congestion, yesterday morning she started complaining of increased shortness of breath, she felt like she could not get air in, her daughter increased her oxygen flow to 5 L/m. She was giving him nebulized treatments, she then developed low-grade fevers, did have some cough with production of yellow sputum, she denied any chest pain, denied any hemoptysis, denied any nausea or vomiting, she did have a couple episodes of diarrhea, self- limiting. Patient complained of severe exertional dyspnea and desaturation into the low 80s, and this was also noted by the EMS staff. Chest x-ray was completely showing bilateral infiltrates and interstitial lung disease with possibility of superimposed pneumonitis or venous congestion, and patchy infiltrate in the left upper lobe, which is new from last chest x-ray. Lab work showed white blood cell count of 8.9, hemoglobin of 8.7, platelet count of 123, sodium is 137, potassium is 5.3, chloride is 103, CO2 is 30, BUN is 25, creatinine is 1.15, plasma lactic acid is 0.6, proBNP is within normal limits at 563. Patient is having diaphoresis, and sweating, she was placed on BiPAP support in view of the significantly increased work of breathing. Patient has been started on combination of Azactam and Levaquin, she has ALLERGIES to penicillins, blood cultures and sputum cultures have been sent and are pending at this time. On 06/11/2019 patient seen in follow-up on care unit, she is breathing easier today, she is currently on 6 L of oxygen, down from 8 L. Denies any chest pain, no fever or chills, still remains hypertensive, today's follow-up chest x-ray redemonstrated interstitial pulmonary edema and pulmonary vascular congestion, fluid overload and the multifocal opacities could represent confluent edema or multifocal pneumonia. Patient has been started on IV antibiotics, Azactam and Levaquin, we will start the patient on IV Lasix, and order echocardiogram today. Legionella urine antigen has been ordered. We'll try to send a sputum culture. Blood cultures are pending. No hemoptysis. Objective - Vital Signs Vital signs: Vital Signs Temp 97.8 F 06/11/19 08:00 Pulse 90 06/11/19 12:00 Resp 16 06/11/19 12:00 BP 185/74 06/11/19 12:00 Pulse Ox 95 06/11/19 12:00 Intake & Output 06/10/19 06/11/19 06/11/19 18:59 06:59 18:59 Intake Total 100.533 647.25 Output Total 400 Balance 100.533 247.25 Weight 111.13 kg 116.9 kg Intake: Intake, IV Titration 100.533 47.25 Amount Insulin Regular 100 unit 100.533 47.25 In Sodium Chloride 0.9% 100 ml @ Titrate IV .Q0M [facility] Rx#:[id number] Oral 600 Output: Urine 400 Other: # Voids 2 1 # Bowel Movements 0 - Exam GENERAL EXAM: Alert, pleasant 68-year-old white female, 6 L of oxygen, comfortable in no apparent distress. HEAD: Normocephalic/atraumatic. EYES: Normal reaction of pupils, equal size. Conjunctiva pink, sclera white. NOSE: Clear with pink turbinates. THROAT: No erythema or exudates. NECK: No masses, no JVD, no thyroid enlargement, no adenopathy. CHEST: No chest wall deformity. Symmetrical expansion. LUNGS: Equal air entry with scattered bibasilar crackles and diminished breath sounds with minimal end expiratory wheezing CVS: Regular rate and rhythm, normal S1 and S2, no gallops, no murmurs, no rubs ABDOMEN: Soft, nontender. No hepatosplenomegaly, normal bowel sounds, no guarding or rigidity. EXTREMITIES: No clubbing, no edema, no cyanosis, 2+ pulses and upper and lower extremities. MUSCULOSKELETAL: Muscle strength and tone normal. SPINE: No scoliosis or deformity SKIN: No rashes CENTRAL NERVOUS SYSTEM: Alert and oriented -3. No focal deficits, tone is normal in all 4 extremities. PSYCHIATRIC: Alert and oriented -3. Appropriate affect. Intact judgment and i nsight. - Labs CBC & Chem 7: 06/11/19 08:43 06/11/19 08:43 Labs: Abnormal Lab Results - Last 24 Hours (Table) 06/10/19 06/10/19 06/10/19 Range/Units 09:08 16:55 21:15 RBC (3.80-5.40) m/uL Hgb (11.4-16.0) gm/dL Hct (34.0-46.0) % MCV (80.0-100.0) fL MCH (25.0-35.0) pg MCHC (31.0-37.0) g/dL RDW (11.5-15.5) % Plt Count (150-450) k/uL Lymphocytes # (1.0-4.8) k/uL Sodium (137-145) mmol/L Potassium (3.5-5.1) mmol/L BUN (7-17) mg/dL Creatinine (0.52-1.04) mg/dL Glucose (74-99) mg/dL POC Glucose (mg/dL) 493 H >600 H (75-99) mg/dL Procalcitonin 0.54 H (0.02-0.09) ng/mL 06/10/19 06/10/19 06/11/19 Range/Units 21:30 23:16 00:18 RBC (3.80-5.40) m/uL Hgb (11.4-16.0) gm/dL Hct (34.0-46.0) % MCV (80.0-100.0) fL MCH (25.0-35.0) pg MCHC (31.0-37.0) g/dL RDW (11.5-15.5) % Plt Count (150-450) k/uL Lymphocytes # (1.0-4.8) k/uL Sodium (137-145) mmol/L Potassium (3.5-5.1) mmol/L BUN (7-17) mg/dL Creatinine (0.52-1.04) mg/dL Glucose (74-99) mg/dL POC Glucose (mg/dL) 590 H 564 H 565 H (75-99) mg/dL Procalcitonin (0.02-0.09) ng/mL 06/11/19 06/11/19 06/11/19 Range/Units 00:49 01:19 01:49 RBC (3.80-5.40) m/uL Hgb (11.4-16.0) gm/dL Hct (34.0-46.0) % MCV (80.0-100.0) fL MCH (25.0-35.0) pg MCHC (31.0-37.0) g/dL RDW (11.5-15.5) % Plt Count (150-450) k/uL Lymphocytes # (1.0-4.8) k/uL Sodium (137-145) mmol/L Potassium (3.5-5.1) mmol/L BUN (7-17) mg/dL Creatinine (0.52-1.04) mg/dL Glucose (74-99) mg/dL POC Glucose (mg/dL) 465 H 391 H 337 H (75-99) mg/dL Procalcitonin (0.02-0.09) ng/mL 06/11/19 06/11/19 06/11/19 Range/Units 02:16 02:45 05:23 RBC (3.80-5.40) m/uL Hgb (11.4-16.0) gm/dL Hct (34.0-46.0) % MCV (80.0-100.0) fL MCH (25.0-35.0) pg MCHC (31.0-37.0) g/dL RDW (11.5-15.5) % Plt Count (150-450) k/uL Lymphocytes # (1.0-4.8) k/uL Sodium (137-145) mmol/L Potassium (3.5-5.1) mmol/L BUN (7-17) mg/dL Creatinine (0.52-1.04) mg/dL Glucose (74-99) mg/dL POC Glucose (mg/dL) 259 H 235 H 230 H (75-99) mg/dL Procalcitonin (0.02-0.09) ng/mL 06/11/19 06/11/19 06/11/19 Range/Units 07:28 08:43 08:43 RBC 3.76 L (3.80-5.40) m/uL Hgb 8.4 L (11.4-16.0) gm/dL Hct 28.8 L (34.0-46.0) % MCV 76.5 L (80.0-100.0) fL MCH 22.3 L (25.0-35.0) pg MCHC 29.1 L (31.0-37.0) g/dL RDW 16.5 H (11.5-15.5) % Plt Count 122 L (150-450) k/uL Lymphocytes # 0.3 L (1.0-4.8) k/uL Sodium 135 L (137-145) mmol/L Potassium 5.5 H (3.5-5.1) mmol/L BUN 38 H (7-17) mg/dL Creatinine 1.41 H (0.52-1.04) mg/dL Glucose 401 H (74-99) mg/dL POC Glucose (mg/dL) 315 H (75-99) mg/dL Procalcitonin (0.02-0.09) ng/mL 06/11/19 06/11/19 06/11/19 Range/Units 09:28 11:36 13:38 RBC (3.80-5.40) m/uL Hgb (11.4-16.0) gm/dL Hct (34.0-46.0) % MCV (80.0-100.0) fL MCH (25.0-35.0) pg MCHC (31.0-37.0) g/dL RDW (11.5-15.5) % Plt Count (150-450) k/uL Lymphocytes # (1.0-4.8) k/uL Sodium (137-145) mmol/L Potassium (3.5-5.1) mmol/L BUN (7-17) mg/dL Creatinine (0.52-1.04) mg/dL Glucose (74-99) mg/dL POC Glucose (mg/dL) 379 H 378 H 367 H (75-99) mg/dL Procalcitonin (0.02-0.09) ng/mL Assessment and Plan Plan: Assessment: #1. Acute on chronic hypoxemic respiratory failure secondary to acute pneumonia involving the left lung and interstitial edema #2. Acute exacerbation of advanced chronic obstructive pulmonary disease related to the above #3. Recent hospitalization for acute community acquired pneumonia involving bilateral lower lobes, she was treated with clindamycin and cefepime and discharged home on oral Omnicef #4. History of stage III COPD, with the baseline FEV1 of 0.76 L or 35% of predicted with severe diffusion abnormality, she is on chronic home oxygen at 4 L #5. Morbid obesity with a BMI of 44.8 kg/m #6. Diabetes mellitus type 2 #7. Hypothyroidism #8. Impaired performance and functional status secondary to poor lung function and multiple other chronic comorbidities Plan: Start the patient on IV Lasix, obtain echocardiogram, continue with current antibiotics, urine Legionella antigen has been ordered, blood cultures have been sent. Patient is afebrile, hemodynamically stable, remains hypertensive. Her breathing easier today, she is off BiPAP support, wean FiO2. Procalcitonin level came back elevated to 0.54, suggesting possibility of infectious process. Influenza screen was negative. Obtain follow-up chest x-ray tomorrow we'll continue to follow. I performed a history & physical examination of the patient and discussed their management with my nurse practitioner, Amparo Crowder. I reviewed the nurse practitioner's note and agree with the documented findings and plan of care. Lung sounds are diminished, with expiratory wheezes. The findings and the impression was discussed with the patient. I attest to the documentation by the nurse practitioner. Time with Patient: Less than 30
[2019-06-11 15:51] LABS: Glucose,Whole Blood 349 mg/dL (75-99)
[2019-06-11 17:45] LABS: Glucose,Whole Blood 257 mg/dL (75-99)
[2019-06-11 20:05] LABS: Glucose,Whole Blood 298 mg/dL (75-99)
[2019-06-11] MEDS: MONTELUKAST 10 MG TAB PO SCH (20:06)
[2019-06-11] MEDS: PRAVASTATIN SODIUM 40 MG TAB PO SCH (20:06)
[2019-06-11 22:17] LABS: Glucose,Whole Blood 387 mg/dL (75-99)
[2019-06-12 00:15] LABS: Glucose,Whole Blood 373 mg/dL (75-99)
[2019-06-12] MEDS: INSULIN REGULAR 100 UNIT in SODIUM CHLORIDE 0.9% 100 ML IV SCH ×3 (00:24→20:19)
[2019-06-12] MEDS: HEPARIN SODIUM,PORCINE 5,000 UNIT/ML 1 ML VIAL SQ SCH ×4 (00:25→23:22)
[2019-06-12 02:09] LABS: Glucose,Whole Blood 212 mg/dL (75-99)
[2019-06-12 04:10] LABS: Glucose,Whole Blood 220 mg/dL (75-99)
[2019-06-12] MEDS: AZTREONAM 2 GM in SODIUM CHLORIDE 0.9% 100 ML IVPB SCH ×2 (04:19→12:00)
[2019-06-12] MEDS: INSULIN ASPART (NovoLOG) 100 UNIT/ML VIAL SQ SCH (05:17)
[2019-06-12 06:05] LABS: Glucose,Whole Blood 225 mg/dL (75-99)
[2019-06-12] MEDS: LEVOTHYROXINE 88 MCG TAB PO SCH (06:10)
[2019-06-12] MEDS: PANTOPRAZOLE 40 MG TABLET PO SCH (06:11)
[2019-06-12 06:32] LABS: Anisocytosis Slight; Basophils % (A) 0 %; Eosinophils # (A) 0.1 k/uL (0-0.7); Eosinophils % (A) 1 %; HCT 27.9 % (34.0-46.0); HGB 8.3 gm/dL (11.4-16.0); Hypochromasia Marked; Lymphocytes # (A) 0.4 k/uL (1.0-4.8); Lymphocytes % (A) 4 %; MCH 22.6 pg (25.0-35.0); MCHC 29.8 g/dL (31.0-37.0); Mean Platelet Volume 7.8; Microcytosis Slight; Monocytes # (A) 0.2 k/uL (0-1.0); Monocytes % (A) 3 %; Neutrophils # (A) 8.9 k/uL (1.3-7.7); Neutrophils % (A) 92 %; Platelet Count 162 k/uL (150-450); RBC 3.67 m/uL (3.80-5.40); RDW 16.1 % (11.5-15.5); WBC 9.7 k/uL (3.8-10.6)
[2019-06-12 06:49] LABS: Potassium 4.8 mmol/L (3.5-5.1)
[2019-06-12 08:04] LABS: Glucose,Whole Blood 377 mg/dL (75-99)
--- NOTE | 2019-06-12 08:15 | XR ---
EXAMINATION TYPE: XR chest 2V DATE OF EXAM: 06/12/2019 COMPARISON: 06/11/2019 HISTORY: Shortness of breath TECHNIQUE: Frontal and lateral views of the chest are obtained. FINDINGS: Trace left pleural effusion is now noted. Multifocal opacities have improved in the interi m. Slightly improvement of interstitial pulmonary edema although still overall moderate. Pulmonary hy perinflation of underlying COPD is seen. Minimal degenerative changes of the spine. Enlarged cardiome diastinal silhouette. Copious soft tissues overlie the lung bases. IMPRESSION: Very minimal improvement of the pulmonary vascular congestion, although remaining overal l moderate. New trace left pleural effusion.
[2019-06-12] MEDS: IPRATROPIUM-ALBUTEROL 3 ML NEB INHALATION SCH ×4 (09:09→19:45)
[2019-06-12] MEDS: BUDESONIDE 1 MG/2 ML NEBU INHALATION SCH ×2 (09:10→19:45)
[2019-06-12] MEDS: FORMOTEROL FUMARATE 20 MCG/2 ML NEBU INHALATION SCH ×2 (09:10→19:45)
[2019-06-12] MEDS: methylPREDNISolone SOD SUCCI 40 MG/ML 1 ML VIAL IV SCH ×3 (09:24→23:24)
[2019-06-12] MEDS: FUROSEMIDE 10 MG/ML 4 ML VIAL IV SCH ×3 (09:24→23:24)
[2019-06-12] MEDS: hydrALAZINE HCL 25 MG TAB PO SCH ×3 (09:25→20:20)
[2019-06-12] MEDS: SODIUM CHLORIDE 0.9% 1,000 ML IV SCH (09:25)
[2019-06-12] MEDS: SERTRALINE 100 MG TAB PO SCH (09:25)
[2019-06-12] MEDS: amLODIPine 10 MG TAB PO SCH (09:25)
[2019-06-12] MEDS: THYROID, PORK 30 MG TAB PO SCH (09:25)
[2019-06-12 10:20] LABS: Glucose,Whole Blood 311 mg/dL (75-99)
[2019-06-12] MEDS ORDERED: LEVOFLOXACIN 750MG-D5W PMX 750 MG in DEXTROSE/WATER 1 150ML.BAG IVPB SCH (12:00)
[2019-06-12 12:01] LABS: Glucose,Whole Blood 342 mg/dL (75-99)
[2019-06-12 14:01] LABS: Glucose,Whole Blood 386 mg/dL (75-99)
[2019-06-12 16:12] LABS: Glucose,Whole Blood 438 mg/dL (75-99)
--- NOTE | 2019-06-12 16:28 | P.PN ---
Subjective Progress Note Date: 06/12/19 Principal diagnosis: Acute on chronic hypoxemic respiratory failure This is a 68-year-old white female patient of Dr. Banks with history of advanced COPD, with baseline FEV1 of 0.76 L or 35% of predicted with severe diffusion abnormality, consistent with stage III COPD with chronic hypoxemic respiratory failure, patient wears 4 L of oxygen on a regular basis, other history includes diabetes, hypertension, hypothyroidism, obesity, previous episode of pneumonia with ARDS requiring intubation and mechanical ventilation, patient is a former smoker. Patient was recently hospitalized for pneumonia, the patient's chest x-ray showing bibasilar pulmonary infiltrates, patient was treated with a combination of cefepime and clindamycin, IV steroids, nebulized bronchodilators. She clinically improved, and was discharged home on 05/26/2019, on oral Cefdinir, prednisone taper. Patient is daughter lives with her and provides significant amount of support care and for her mother. She stated after the discharge patient was feeling good, until she finished the prednisone. 2 days after she finished the prednisone she started having increased nasal congestion, yesterday morning she started complaining of increased shortness of breath, she felt like she could not get air in, her daughter increased her oxygen flow to 5 L/m. She was giving him nebulized treatments, she then developed low-grade fevers, did have some cough with production of yellow sputum, she denied any chest pain, denied any hemoptysis, denied any nausea or vomiting, she did have a couple episodes of diarrhea, self- limiting. Patient complained of severe exertional dyspnea and desaturation into the low 80s, and this was also noted by the EMS staff. Chest x-ray was completely showing bilateral infiltrates and interstitial lung disease with possibility of superimposed pneumonitis or venous congestion, and patchy infiltrate in the left upper lobe, which is new from last chest x-ray. Lab work showed white blood cell count of 8.9, hemoglobin of 8.7, platelet count of 123, sodium is 137, potassium is 5.3, chloride is 103, CO2 is 30, BUN is 25, creatinine is 1.15, plasma lactic acid is 0.6, proBNP is within normal limits at 563. Patient is having diaphoresis, and sweating, she was placed on BiPAP support in view of the significantly increased work of breathing. Patient has been started on combination of Azactam and Levaquin, she has ALLERGIES to penicillins, blood cultures and sputum cultures have been sent and are pending at this time. On 06/11/2019 patient seen in follow-up on care unit, she is breathing easier today, she is currently on 6 L of oxygen, down from 8 L. Denies any chest pain, no fever or chills, still remains hypertensive, today's follow-up chest x-ray redemonstrated interstitial pulmonary edema and pulmonary vascular congestion, fluid overload and the multifocal opacities could represent confluent edema or multifocal pneumonia. Patient has been started on IV antibiotics, Azactam and Levaquin, we will start the patient on IV Lasix, and order echocardiogram today. Legionella urine antigen has been ordered. We'll try to send a sputum culture. Blood cultures are pending. No hemoptysis. On 06/12/2019 patient seen in follow-up on [facility] care unit, she is awake and alert, distress, 6 L of oxygen with a pulse ox of 96%, febrile, hemodynamically stable, microbiology results have been reviewed, blood culture showed no growth. No complaints of chest pain, patient has been on IV diuretics for last 24 hours, at 40 mg every 8 hours, she is on IV steroids and antibiotics, echocardiogram has been reviewed, showing EF of 55-60%. Objective - Vital Signs Vital signs: Vital Signs Temp 98.4 F 06/12/19 11:55 Pulse 102 H 06/12/19 15:33 Resp 22 06/12/19 15:33 BP 179/77 06/12/19 11:55 Pulse Ox 96 06/12/19 09:10 Intake & Output 06/11/19 06/12/19 06/12/19 18:59 06:59 18:59 Intake Total 1421.00 322.083 989.5 Output Total 400 500 200 Balance 1021.00 -177.917 789.5 Intake: Intake, IV Titration 101.00 322.083 29.5 Amount Insulin Regular 100 unit 101.00 322.083 29.5 In Sodium Chloride 0.9% 100 ml @ Titrate IV .Q0M [facility] Rx#:[id number] Oral 1320 960 Output: Urine 400 500 200 Other: Voiding Method Bedside Commode # Voids 1 1 # Bowel Movements 0 0 - Exam GENERAL EXAM: Alert, pleasant 68-year-old white female, 6 L of oxygen, comfortable in no apparent distress. HEAD: Normocephalic/atraumatic. EYES: Normal reaction of pupils, equal size. Conjunctiva pink, sclera white. NOSE: Clear with pink turbinates. THROAT: No erythema or exudates. NECK: No masses, no JVD, no thyroid enlargement, no adenopathy. CHEST: No chest wall deformity. Symmetrical expansion. LUNGS: Equal air entry with scattered bibasilar crackles and diminished breath s ounds with minimal end expiratory wheezing CVS: Regular rate and rhythm, normal S1 and S2, no gallops, no murmurs, no rubs ABDOMEN: Soft, nontender. No hepatosplenomegaly, normal bowel sounds, no gua rding or rigidity. EXTREMITIES: No clubbing, no edema, no cyanosis, 2+ pulses and upper and lower extremities. MUSCULOSKELETAL: Muscle strength and tone normal. SPINE: No scoliosis or deformity SKIN: No rashes CENTRAL NERVOUS SYSTEM: Alert and oriented -3. No focal deficits, tone is normal in all 4 extremities. PSYCHIATRIC: Alert and oriented -3. Appropriate affect. Intact judgment and insight. - Labs CBC & Chem 7: 06/12/19 05:58 06/12/19 05:58 Labs: Abnormal Lab Results - Last 24 Hours (Table) 06/11/19 06/11/19 06/11/19 Range/Units 17:43 20:03 22:15 RBC (3.80-5.40) m/uL Hgb (11.4-16.0) gm/dL Hct (34.0-46.0) % MCV (80.0-100.0) fL MCH (25.0-35.0) pg MCHC (31.0-37.0) g/dL RDW (11.5-15.5) % Neutrophils # (1.3-7.7) k/uL Lymphocytes # (1.0-4.8) k/uL Carbon Dioxide (22-30) mmol/L BUN (7-17) mg/dL Creatinine (0.52-1.04) mg/dL Glucose (74-99) mg/dL POC Glucose (mg/dL) 257 H 298 H 387 H (75-99) mg/dL 06/12/19 06/12/19 06/12/19 Range/Units 00:14 01:57 04:09 RBC (3.80-5.40) m/uL Hgb (11.4-16.0) gm/dL Hct (34.0-46.0) % MCV (80.0-100.0) fL MCH (25.0-35.0) pg MCHC (31.0-37.0) g/dL RDW (11.5-15.5) % Neutrophils # (1.3-7.7) k/uL Lymphocytes # (1.0-4.8) k/uL Carbon Dioxide (22-30) mmol/L BUN (7-17) mg/dL Creatinine (0.52-1.04) mg/dL Glucose (74-99) mg/dL POC Glucose (mg/dL) 373 H 212 H 220 H (75-99) mg/dL 06/12/19 06/12/19 06/12/19 Range/Units 05:58 05:58 06:04 RBC 3.67 L (3.80-5.40) m/uL Hgb 8.3 L (11.4-16.0) gm/dL Hct 27.9 L (34.0-46.0) % MCV 76.0 L (80.0-100.0) fL MCH 22.6 L (25.0-35.0) pg MCHC 29.8 L (31.0-37.0) g/dL RDW 16.1 H (11.5-15.5) % Neutrophils # 8.9 H (1.3-7.7) k/uL Lymphocytes # 0.4 L (1.0-4.8) k/uL Carbon Dioxide 31 H (22-30) mmol/L BUN 50 H (7-17) mg/dL Creatinine 1.44 H (0.52-1.04) mg/dL Glucose 217 H (74-99) mg/dL POC Glucose (mg/dL) 225 H (75-99) mg/dL 06/12/19 06/12/19 06/12/19 Range/Units 08:03 10:19 11:59 RBC (3.80-5.40) m/uL Hgb (11.4-16.0) gm/dL Hct (34.0-46.0) % MCV (80.0-100.0) fL MCH (25.0-35.0) pg MCHC (31.0-37.0) g/dL RDW (11.5-15.5) % Neutrophils # (1.3-7.7) k/uL Lymphocytes # (1.0-4.8) k/uL Carbon Dioxide (22-30) mmol/L BUN (7-17) mg/dL Creatinine (0.52-1.04) mg/dL Glucose (74-99) mg/dL POC Glucose (mg/dL) 377 H 311 H 342 H (75-99) mg/dL 06/12/19 Range/Units 14:00 RBC (3.80-5.40) m/uL Hgb (11.4-16.0) gm/dL Hct (34.0-46.0) % MCV (80.0-100.0) fL MCH (25.0-35.0) pg MCHC (31.0-37.0) g/dL RDW (11.5-15.5) % Neutrophils # (1.3-7.7) k/uL Lymphocytes # (1.0-4.8) k/uL Carbon Dioxide (22-30) mmol/L BUN (7-17) mg/dL Creatinine (0.52-1.04) mg/dL Glucose (74-99) mg/dL POC Glucose (mg/dL) 386 H (75-99) mg/dL Microbiology - Last 24 Hours (Table) 06/10/19 11:45 Blood Culture - Preliminary Blood No Growth after 48 hours Assessment and Plan Plan: Assessment: #1. Acute on chronic hypoxemic respiratory failure secondary to acute pneumonia involving the left lung and interstitial edema #2. Acute exacerbation of advanced chronic obstructive pulmonary disease related to the above #3. Recent hospitalization for acute community acquired pneumonia involving bilateral lower lobes, she was treated with clindamycin and cefepime and discharged home on oral Omnicef #4. History of stage III COPD, with the baseline FEV1 of 0.76 L or 35% of predicted with severe diffusion abnormality, she is on chronic home oxygen at 4 L #5. Morbid obesity with a BMI of 44.8 kg/m #6. Diabetes mellitus type 2 #7. Hypothyroidism #8. Impaired performance and functional status secondary to poor lung function and multiple other chronic comorbidities Plan: Continue the IV diuretics, daily weight, accurate intake and output, patient is breathing easier, FiO2 is down to 5 L, no fever or chills, no cough or congestion, blood culture showed no growth. Influenza screen was negative, no fever or chills, Legionella urine antigen has been sent and is pending at this time. We'll continue to follow, follow-up chest x-ray today has been reviewed, showing minimal improvement of the pulmonary vascular congestion. Continue nebulized bronchodilators. Continue IV steroids. I performed a history & physical examination of the patient and discussed their management with my nurse practitioner, Amparo Crowder. I reviewed the nurse practitioner's note and agree with the documented findings and plan of care. Lung sounds are diminished, with expiratory wheezes. The findings and the impression was discussed with the patient. I attest to the documentation by the nurse practitioner. Time with Patient: Less than 30
[2019-06-12 18:22] LABS: Glucose,Whole Blood 429 mg/dL (75-99)
[2019-06-12] MEDS: PRAVASTATIN SODIUM 40 MG TAB PO SCH (20:20)
[2019-06-12] MEDS: MONTELUKAST 10 MG TAB PO SCH (20:20)
[2019-06-12] MEDS: AZTREONAM 1 GM in SODIUM CHLORIDE 0.9% 50 ML IVPB SCH (20:21)
[2019-06-12 20:34] LABS: Glucose,Whole Blood 239 mg/dL (75-99)
[2019-06-12 22:02] LABS: Glucose,Whole Blood 250 mg/dL (75-99)
[2019-06-12 23:53] LABS: Glucose,Whole Blood 293 mg/dL (75-99)
[2019-06-13 02:04] LABS: Glucose,Whole Blood 295 mg/dL (75-99)
[2019-06-13 04:04] LABS: Glucose,Whole Blood 292 mg/dL (75-99)
[2019-06-13] MEDS: AZTREONAM 1 GM in SODIUM CHLORIDE 0.9% 50 ML IVPB SCH ×3 (05:08→20:53)
[2019-06-13 06:01] LABS: Glucose,Whole Blood 256 mg/dL (75-99)
[2019-06-13] MEDS: PANTOPRAZOLE 40 MG TABLET PO SCH (06:20)
[2019-06-13] MEDS: amLODIPine 10 MG TAB PO SCH (06:20)
[2019-06-13] MEDS: LEVOTHYROXINE 88 MCG TAB PO SCH (06:20)
[2019-06-13] MEDS: hydrALAZINE HCL 25 MG TAB PO SCH (06:21)
[2019-06-13 07:16] LABS: Calcium 9.1 mg/dL (8.4-10.2); Potassium 4.7 mmol/L (3.5-5.1)
[2019-06-13] MEDS: FUROSEMIDE 10 MG/ML 4 ML VIAL IV SCH (08:56)
[2019-06-13] MEDS: HEPARIN SODIUM,PORCINE 5,000 UNIT/ML 1 ML VIAL SQ SCH ×3 (08:57→23:05)
[2019-06-13] MEDS: SERTRALINE 100 MG TAB PO SCH (08:58)
[2019-06-13] MEDS: THYROID, PORK 30 MG TAB PO SCH (08:58)
[2019-06-13] MEDS: methylPREDNISolone SOD SUCCI 40 MG/ML 1 ML VIAL IV SCH (08:58)
[2019-06-13] MEDS: ACETAMINOPHEN TAB 325 MG TAB PO PRN (08:59)
[2019-06-13] MEDS: IPRATROPIUM-ALBUTEROL 3 ML NEB INHALATION SCH ×4 (09:02→20:52)
[2019-06-13] MEDS: FORMOTEROL FUMARATE 20 MCG/2 ML NEBU INHALATION SCH ×2 (09:02→20:52)
[2019-06-13] MEDS: BUDESONIDE 1 MG/2 ML NEBU INHALATION SCH ×2 (09:02→20:52)
[2019-06-13 09:08] LABS: Anisocytosis Slight; Basophils % (A) 0 %; Eosinophils % (A) 0 %; HGB 8.6 gm/dL (11.4-16.0); Hypochromasia Marked; Lymphocytes # (A) 0.5 k/uL (1.0-4.8); Lymphocytes % (A) 4 %; MCH 22.4 pg (25.0-35.0); MCHC 29.7 g/dL (31.0-37.0); MCV 75.5 fL (80.0-100.0); Mean Platelet Volume 7.2; Microcytosis Slight; Monocytes # (A) 0.3 k/uL (0-1.0); Monocytes % (A) 3 %; Neutrophils # (A) 9.4 k/uL (1.3-7.7); Neutrophils % (A) 91 %; Platelet Count 176 k/uL (150-450); RBC 3.84 m/uL (3.80-5.40); RDW 16.3 % (11.5-15.5); WBC 10.4 k/uL (3.8-10.6)
[2019-06-13 11:56] LABS: Glucose,Whole Blood 171 mg/dL (75-99)
--- NOTE | 2019-06-13 12:56 | P.NPCON ---
History of Present Illness - Reason for Consult acute renal failure - History of Present Illness Reason for consultation: Acute kidney injury History of present illness: Patient is a 68-year-old female seen in renal consultation for acute kidney injury. Patient's creatinine was 1.15 on admission and hasn't progressively getting worse over the last 3 days. It is up to 1.67 today. Patient presented to the hospital with dyspnea. She has a productive cough with clear phlegm. No fever. She was also noted to have vascular congestion and is currently maintained on IV Lasix 40 mg 3 times daily. Admits to good urine output. No hematuria or dysuria. No vomiting or diarrhea. Dyspnea since admission has improved significantly. No evidence of hypotension. In fact her blood pressures have been on the higher side. She does have long-standing history of diabetes mellitus. Patient states her mother had kidney problems but is unsure of the cause an exact details. She was not on any form of renal replacement therapy. Chest x-ray from yesterday revealed trace left pleural effusion. Echocardiogram revealed preserved ejection fraction. She is also on IV steroids for COPD. She denies regular use of nonsteroidals. Blood sugars have been running high. She is currently on insulin drip. Vital signs are stable. General: The patient appeared well nourished and normally developed. HEENT: Head exam is unremarkable. Neck is without jugular venous distension. LUNGS: Breath sounds decreased. HEART: Rate and Rhythm are regular. First and second heart sounds normal. No murmurs, rubs or gallops. ABDOMEN: Abdominal exam reveals normal bowel sounds. Non-tender and non- distended. Obese. EXTREMITITES: 1+ edema. Past Medical History Past Medical History: COPD, Diabetes Mellitus, Hypertension Additional Past Medical History / Comment(s): ARDS secondary to pneumonia more than 10 years ago requiring tracheostomy tube insertion, COPD with established FEV1 of 41% of predicted, diabetes mellitus, hypertension, history of morbid obesity History of Any Multi-Drug Resistant Organisms: None Reported Past Surgical History: Cholecystectomy, Hysterectomy Past Anesthesia/Blood Transfusion Reactions: No Reported Reaction Past Psychological History: No Psychological Hx Reported Smoking Status: Former smoker Past Alcohol Use History: None Reported Past Drug Use History: None Reported - Past Family History Mother Family Medical History: Congestive Heart Failure (CHF), Diabetes Mellitus Additional Family Medical History / Comment(s): The patient's mother had congestion heart failure and diabetes mellitus in the father had Parkinson's disease. Medications and Allergies Home Medications Medication Instructions Recorded Confirmed Type Albuterol Nebulized [Ventolin 2.5 mg INHALATION RT-Q4H PRN 05/22/19 06/10/19 History Nebulized] Albuterol Sulfate [Proair Hfa] 1 - 2 puff INHALATION RT-Q6H PRN 05/22/19 06/10/19 History Budesonide/Formoterol Fumarate 2 puff INHALATION RT-BID 05/22/19 06/10/19 History [Symbicort 160-4.5 Mcg Inhaler] Ipratropium-Albuterol Nebulize 3 ml INHALATION QID ampul.neb 05/22/19 06/10/19 Rx [Duoneb 0.5 mg-3 mg/3 ml Soln] Levothyroxine Sodium [Synthroid] 88 mcg PO DAILY 05/22/19 06/10/19 History Montelukast [Singulair] 10 mg PO HS 05/22/19 06/10/19 History Pravastatin Sodium [Pravachol] 40 mg PO HS 05/22/19 06/10/19 History Sertraline [Zoloft] 150 mg PO DAILY 05/22/19 06/10/19 History Thyroid,Pork [Sewer Thyroid] 30 mg PO DAILY 05/22/19 06/10/19 History Tiotropium 18 Mcg/Puff [Spiriva] 1 puff INHALATION RT-DAILY 05/22/19 06/10/19 History amLODIPine [Norvasc] 10 mg PO DAILY 05/22/19 06/10/19 History glipiZIDE [Glucotrol] 10 mg PO AC-BID 05/22/19 06/10/19 History Insulin Glargine [Lantus] 65 unit SQ HS #0 05/26/19 06/10/19 Rx hydrALAZINE HCL 25 mg PO TID #90 tablet 05/26/19 06/10/19 Rx Fluticasone Nasal Vader [Flonase 2 spr EA NOSTRIL DAILY 06/10/19 06/10/19 History Nasal Vader] Allergies Allergy/AdvReac Type Severity Reaction Status Date / Time Penicillins Allergy Anaphylaxis Verified 06/10/19 09:46 zolpidem [From Ambien] AdvReac Confusion Verified 06/10/19 09:46 Physical Exam Vitals: Vital Signs Temp Pulse Pulse Resp BP BP Pulse Ox 06/13/19 12:25 100 06/13/19 11:39 98.4 F 98 15 167/74 06/13/19 11:21 20 06/13/19 09:32 104 H 06/13/19 09:20 102 H 06/13/19 09:18 96 06/13/19 09:03 96 06/13/19 08:00 105 H 20 06/13/19 07:32 97.5 F L 105 H 20 157/71 94 L 06/13/19 04:00 107 H 20 205/91 183/86 92 L 06/13/19 00:00 105 H 20 174/81 91 L 06/12/19 20:17 100 06/12/19 20:01 100 06/12/19 20:00 96.8 F L 98 114 H 18 183/80 94 L 06/12/19 19:46 100 06/12/19 16:23 102 H 06/12/19 16:05 100 93 L 06/12/19 15:33 102 H 22 06/12/19 13:13 104 H 06/12/19 12:57 102 H 22 Intake and Output 06/12/19 06/13/19 06/13/19 22:59 06:59 14:59 Intake Total 544.200 71.250 257.967 Output Total 400 1200 Balance 144.200 -1128.750 257.967 Intake: Intake, IV Titration 64.200 71.250 17.967 Amount Insulin Regular 100 unit 64.200 71.250 17.967 In Sodium Chloride 0.9% 100 ml @ Titrate IV .Q0M [facility] Rx#:[id number] Oral 480 240 Output: Urine 400 1200 Other: Voiding Method Bedside Commode Bedside Commode # Voids 1 1 # Bowel Movements 0 Weight 113.6 kg Results - Lab Results Most recent lab results Calcium 9.1 mg/dL (8.4-10.2) 06/13/19 06:10 06/13/19 06:10 06/13/19 06:10 Assessment and Plan Plan: Assessment: 1. Acute kidney injury mostly prerenal secondary to cardiorenal syndrome. Creatinine 1.67 today. 2. Acute on chronic diastolic CHF. 3. Diabetes mellitus. Blood sugars have been high due to IV steroids. Currently on insulin drip. 4. Dyspnea secondary to volume overload, pneumonia and COPD exacerbation. 5. Pneumonia maintained on antibiotics. 6. Benign hypertension. Partially due to steroids. 7. Rule out chronic kidney disease. Will need to establish baseline renal function. Plan: Decrease Lasix to 40 mg IV twice daily. Check UA. Check renal ultrasound. Avoid nephrotoxins. Increase hydralazine to 50 mg 3 times daily. Hold if systolic blood pressure less than 120. Check iron studies. Repeat electrolytes in the morning. Thank you for the consultation. I will continue to follow the patient with you during her hospital stay.
[2019-06-13] MEDS: INSULIN REGULAR 100 UNIT in SODIUM CHLORIDE 0.9% 100 ML IV SCH (14:12)
[2019-06-13 14:15] LABS: Glucose,Whole Blood 322 mg/dL (75-99)
--- NOTE | 2019-06-13 15:06 | P.PN ---
Subjective Progress Note Date: 06/13/19 Principal diagnosis: Acute renal injury Hypoxic respiratory failure COPD exacerbation Community-acquired pneumonia Acute exacerbation CHF 68-year-old female with a past medical history significant for stage III COPD, chronic hypoxic respiratory failure on 4 L home oxygen, type 2 diabetes, hypothyroid, hypertension, history of ARDS requiring intubation and mechanical ventilation. She presents to the emergency department with shortness of breath and increased oxygen requirements over the past few days. She was recently admitted for multifocal pneumonia and treated at that time with cefepime, IV steroids, clindamycin, inhaled bronchodilators; patient was discharged with st eroid taper and Omnicef. She states she initially felt well but after she completed her steroids she began to experience increased secretions and shortness of breath. Yesterday she required 5 L oxygen and so presented to the emergency department. She also complains of low-grade fevers at home and chills with T-max of 99. She is a former smoker. In the ED she was tachypneic and hypoxic chest x-ray showed multifocal pneumonia with bilateral infiltrates and interstitial prominence WBC 8.9 BNP 550 pro calcitonin 0.5. Patient initially required BiPAP but was transitioned to high flow. She was started on aztreonam and Levaquin, as well as IV Solu-Medrol and inhaled steroids and DuoNeb's. Objective - Vital Signs Vital signs: Vital Signs Temp 97.5 F L 06/13/19 07:32 Pulse 104 H 06/13/19 09:32 Resp 20 06/13/19 08:00 BP 157/71 06/13/19 07:32 Pulse Ox 94 L 06/13/19 07:32 Intake & Output 06/12/19 06/13/19 06/13/19 18:59 06:59 18:59 Intake Total 1521.917 83.033 240 Output Total 400 1400 Balance 1121.917 -1316.967 240 Weight 113.6 kg Intake: Intake, IV Titration 81.917 83.033 Amount Insulin Regular 100 unit 81.917 83.033 In Sodium Chloride 0.9% 100 ml @ Titrate IV .Q0M [facility] Rx#:[id number] Oral 1440 240 Output: Urine 400 1400 Other: Voiding Method Bedside Commode Bedside Commode # Voids 1 1 # Bowel Movements 0 - Exam General: non toxic, no distress, appears at stated age Derm: warm, dry Head: atraumatic, normocephalic, symmetric Eyes: EOMI, no lid lag, anicteric sclera Mouth: no lip lesion, mucus membranes moist Cardiovascular: S1S2 reg, systolic murmur, positive posterior tibial pulse bilateral, Lungs: Poor air entry, rhonchi throughout, no rales, no accessory muscle use Abdominal: soft, nontender to palpation, no guarding, no appreciable organomegaly Ext: no gross muscle atrophy, 1+ edema, no contractures Neuro: CN II-XI grossly intact, no focal neuro deficits - Labs CBC & Chem 7: 06/13/19 06:10 06/13/19 06:10 Labs: Abnormal Lab Results - Last 24 Hours (Table) 06/12/19 06/12/19 06/12/19 Range/Units 11:59 14:00 16:10 Hgb (11.4-16.0) gm/dL Hct (34.0-46.0) % MCV (80.0-100.0) fL MCH (25.0-35.0) pg MCHC (31.0-37.0) g/dL RDW (11.5-15.5) % Neutrophils # (1.3-7.7) k/uL Lymphocytes # (1.0-4.8) k/uL Sodium (137-145) mmol/L Chloride (98-107) mmol/L BUN (7-17) mg/dL Creatinine (0.52-1.04) mg/dL Glucose (74-99) mg/dL POC Glucose (mg/dL) 342 H 386 H 438 H (75-99) mg/dL 06/12/19 06/12/19 06/12/19 Range/Units 18:19 19:56 21:59 Hgb (11.4-16.0) gm/dL Hct (34.0-46.0) % MCV (80.0-100.0) fL MCH (25.0-35.0) pg MCHC (31.0-37.0) g/dL RDW (11.5-15.5) % Neutrophils # (1.3-7.7) k/uL Lymphocytes # (1.0-4.8) k/uL Sodium (137-145) mmol/L Chloride (98-107) mmol/L BUN (7-17) mg/dL Creatinine (0.52-1.04) mg/dL Glucose (74-99) mg/dL POC Glucose (mg/dL) 429 H 239 H 250 H (75-99) mg/dL 06/12/19 06/13/19 06/13/19 Range/Units 23:51 02:02 04:02 Hgb (11.4-16.0) gm/dL Hct (34.0-46.0) % MCV (80.0-100.0) fL MCH (25.0-35.0) pg MCHC (31.0-37.0) g/dL RDW (11.5-15.5) % Neutrophils # (1.3-7.7) k/uL Lymphocytes # (1.0-4.8) k/uL Sodium (137-145) mmol/L Chloride (98-107) mmol/L BUN (7-17) mg/dL Creatinine (0.52-1.04) mg/dL Glucose (74-99) mg/dL POC Glucose (mg/dL) 293 H 295 H 292 H (75-99) mg/dL 06/13/19 06/13/19 06/13/19 Range/Units 05:49 06:10 06:10 Hgb 8.6 L (11.4-16.0) gm/dL Hct 29.0 L (34.0-46.0) % MCV 75.5 L (80.0-100.0) fL MCH 22.4 L (25.0-35.0) pg MCHC 29.7 L (31.0-37.0) g/dL RDW 16.3 H (11.5-15.5) % Neutrophils # 9.4 H (1.3-7.7) k/uL Lymphocytes # 0.5 L (1.0-4.8) k/uL Sodium 136 L (137-145) mmol/L Chloride 96 L (98-107) mmol/L BUN 64 H (7-17) mg/dL Creatinine 1.67 H (0.52-1.04) mg/dL Glucose 235 H (74-99) mg/dL POC Glucose (mg/dL) 256 H (75-99) mg/dL Microbiology - Last 24 Hours (Table) 06/10/19 11:45 Blood Culture - Preliminary Blood No Growth after 48 hours Assessment and Plan Assessment: 1. Acute hypoxic respiratory failure. Secondary to pneumonia/ acute exacerbation CHF. procalcitonin 0.5. Blood culture and sputum culture sent. Continue aztreonam and Levaquin. DuoNeb's, inhaled corticosteroids, IV Solu- Medrol - Patient is currently on 6 L of oxygen with a pulse ox of 96%; labs are stable and blood cultures have been negative; patient has been started on IV diuretics in form of Lasix 40 mg IV every 12 hours; continue with IV Solu-Medrol 40 mg every 8 hours 2. Multifocal pneumonia. Pulmonology consulted, - Continue with IV antibiotics in form of a history and I am 1 g IV every 8 hours and Levaquin 750 mg IV every 48 hours 3. COPD exacerbation - IV Solu-Medrol 40 mg every 8 hours; nebulized circumflex treatments with bronchodilators and Pulmicort - O2 per nasal cannula keeping SpO2 greater than 90% 4. T2DM; uncontrolled secondary to steroids. - Patient remains on Insulin gtt with IV steroids; we will continue to monitor Accu-Cheks per protocol 5. HTN, - Stable on Norvasc 10 mg daily hypothyroid. Continue home medications 6. Hypothyroidism; Synthroid 88 MCG daily 7. DVT prophylaxis; subcu heparin CODE STATUS; full code Time with Patient: Greater than 30
--- NOTE | 2019-06-13 15:43 | US ---
EXAMINATION TYPE: US kidneys/renal and bladder DATE OF EXAM: 06/13/2019 COMPARISON: NONE CLINICAL HISTORY: raiza. diabetic EXAM MEASUREMENTS: Right Kidney: 9.8 x 4.5 x 3.7 cm Left Kidney: 10.2 x 4.8 x 3.7 cm Post Void Residual Volume: not assessed on inpatient Right Kidney: inferior cortical simple cyst = 0.7 x 0.7 x 0.7cm. This demonstrates increased through transmission. Left Kidney: No hydronephrosis or masses seen Bladder: wnl Bilateral Jets seen: small bilateral ureteral jets were seen Incidental US finding: enlarged spleen is noted = 17.6 x 17.0 x 6.6cm. Mild bilateral cortical renal thinning is seen. There is no evidence for hydronephrosis at this point in time. No nephrolithiasis is seen. The urinary bladder is anechoic. Bilateral ureteral jets ar e seen. IMPRESSION: 1. Splenomegaly with the spleen measuring 17.6 cm (greater than 14 cm qualifies is splenomegaly). 2. No hydronephrosis or nephrolithiasis. Mild cortical renal thinning is seen bilaterally, sequela of chronic medical renal disease. 3. Small simple appearing right renal cyst measures 0.7 cm.
[2019-06-13 16:07] LABS: Glucose,Whole Blood 388 mg/dL (75-99)
[2019-06-13] MEDS: hydrALAZINE HCL 50 MG TAB PO SCH ×2 (16:25→20:54)
--- NOTE | 2019-06-13 17:49 | P.PN ---
Subjective Progress Note Date: 06/13/19 Principal diagnosis: Acute on chronic hypoxemic respiratory failure This is a 68-year-old white female patient of Dr. Banks with history of advanced COPD, with baseline FEV1 of 0.76 L or 35% of predicted with severe diffusion abnormality, consistent with stage III COPD with chronic hypoxemic respiratory failure, patient wears 4 L of oxygen on a regular basis, other history includes diabetes, hypertension, hypothyroidism, obesity, previous episode of pneumonia with ARDS requiring intubation and mechanical ventilation, patient is a former smoker. Patient was recently hospitalized for pneumonia, the patient's chest x-ray showing bibasilar pulmonary infiltrates, patient was treated with a combination of cefepime and clindamycin, IV steroids, nebulized bronchodilators. She clinically improved, and was discharged home on 05/26/2019, on oral Cefdinir, prednisone taper. Patient is daughter lives with her and provides significant amount of support care and for her mother. She stated after the discharge patient was feeling good, until she finished the prednisone. 2 days after she finished the prednisone she started having increased nasal congestion, yesterday morning she started complaining of increased shortness of breath, she felt like she could not get air in, her daughter increased her oxygen flow to 5 L/m. She was giving him nebulized treatments, she then developed low-grade fevers, did have some cough with production of yellow sputum, she denied any chest pain, denied any hemoptysis, denied any nausea or vomiting, she did have a couple episodes of diarrhea, self- limiting. Patient complained of severe exertional dyspnea and desaturation into the low 80s, and this was also noted by the EMS staff. Chest x-ray was completely showing bilateral infiltrates and interstitial lung disease with possibility of superimposed pneumonitis or venous congestion, and patchy infiltrate in the left upper lobe, which is new from last chest x-ray. Lab work showed white blood cell count of 8.9, hemoglobin of 8.7, platelet count of 123, sodium is 137, potassium is 5.3, chloride is 103, CO2 is 30, BUN is 25, creatinine is 1.15, plasma lactic acid is 0.6, proBNP is within normal limits at 563. Patient is having diaphoresis, and sweating, she was placed on BiPAP support in view of the significantly increased work of breathing. Patient has been started on combination of Azactam and Levaquin, she has ALLERGIES to penicillins, blood cultures and sputum cultures have been sent and are pending at this time. On 06/11/2019 patient seen in follow-up on care unit, she is breathing easier today, she is currently on 6 L of oxygen, down from 8 L. Denies any chest pain, no fever or chills, still remains hypertensive, today's follow-up chest x-ray redemonstrated interstitial pulmonary edema and pulmonary vascular congestion, fluid overload and the multifocal opacities could represent confluent edema or multifocal pneumonia. Patient has been started on IV antibiotics, Azactam and Levaquin, we will start the patient on IV Lasix, and order echocardiogram today. Legionella urine antigen has been ordered. We'll try to send a sputum culture. Blood cultures are pending. No hemoptysis. On 06/12/2019 patient seen in follow-up on selective care unit, she is awake and alert, distress, 6 L of oxygen with a pulse ox of 96%, febrile, hemodynamically stable, microbiology results have been reviewed, blood culture showed no growth. No complaints of chest pain, patient has been on IV diuretics for last 24 hours, at 40 mg every 8 hours, she is on IV steroids and antibiotics, echocardiogram has been reviewed, showing EF of 55-60%. On 06/13/2019 patient seen in follow-up on selective care unit, she is awake and alert, in no acute distress, she states her breathing continues to improve, she is currently on 5 L of oxygen with a pulse ox of 94%, she's been afebrile, she denies any worsening dyspnea, she has occasional cough with production of sputum, there has been no fever or chills, blood cultures have been negative. Patient continues to diurese, her weight is down by 3.3 kg in the last 24 hours, she is in negative fluid balance. No complex of chest pain. Objective - Vital Signs Vital signs: Vital Signs Temp 98.4 F 06/13/19 11:39 Pulse 110 H 06/13/19 16:35 Resp 16 06/13/19 16:00 BP 175/79 06/13/19 16:00 Pulse Ox 94 L 06/13/19 16:27 Intake & Output 06/12/19 06/13/19 06/13/19 18:59 06:59 18:59 Intake Total 1521.917 83.033 522.117 Output Total 400 1400 Balance 1121.917 -1316.967 522.117 Weight 113.6 kg Intake: Intake, IV Titration 81.917 83.033 42.117 Amount Insulin Regular 100 unit 81.917 83.033 42.117 In Sodium Chloride 0.9% 100 ml @ Titrate IV .Q0M [facility] Rx#:[id number] Oral 1440 480 Output: Urine 400 1400 Other: Voiding Method Bedside Commode Bedside Commode Bedside Commode # Voids 1 1 # Bowel Movements 0 - Exam GENERAL EXAM: Alert, pleasant 68-year-old white female, 5 L of oxygen, comfortable in no apparent distress. HEAD: Normocephalic/atraumatic. EYES: Normal reaction of pupils, equal size. Conjunctiva pink, sclera white. NOSE: Clear with pink turbinates. THROAT: No erythema or exudates. NECK: No masses, no JVD, no thyroid enlargement, no adenopathy. CHEST: No chest wall deformity. Symmetrical expansion. LUNGS: Equal air entry with scattered bibasilar crackles and diminished breath sounds with minimal end expiratory wheezing CVS: Regular rate and rhythm, normal S1 and S2, no gallops, no murmurs, no rubs ABDOMEN: Soft, nontender. No hepatosplenomegaly, normal bowel sounds, no guarding or rigidity. EXTREMITIES: No clubbing, no edema, no cyanosis, 2+ pulses and upper and lower extremities. MUSCULOSKELETAL: Muscle strength and tone normal. SPINE: No scoliosis or deformity SKIN: No rashes CENTRAL NERVOUS SYSTEM: Alert and oriented -3. No focal deficits, tone is normal in all 4 extremities. PSYCHIATRIC: Alert and oriented -3. Appropriate affect. Intact judgment and insight. - Labs CBC & Chem 7: 06/13/19 06:10 06/13/19 06:10 Labs: Abnormal Lab Results - Last 24 Hours (Table) 06/12/19 06/12/19 06/12/19 Range/Units 18:19 19:56 21:59 Hgb (11.4-16.0) gm/dL Hct (34.0-46.0) % MCV (80.0-100.0) fL MCH (25.0-35.0) pg MCHC (31.0-37.0) g/dL RDW (11.5-15.5) % Neutrophils # (1.3-7.7) k/uL Lymphocytes # (1.0-4.8) k/uL Sodium (137-145) mmol/L Chloride (98-107) mmol/L BUN (7-17) mg/dL Creatinine (0.52-1.04) mg/dL Glucose (74-99) mg/dL POC Glucose (mg/dL) 429 H 239 H 250 H (75-99) mg/dL 06/12/19 06/13/19 06/13/19 Range/Units 23:51 02:02 04:02 Hgb (11.4-16.0) gm/dL Hct (34.0-46.0) % MCV (80.0-100.0) fL MCH (25.0-35.0) pg MCHC (31.0-37.0) g/dL RDW (11.5-15.5) % Neutrophils # (1.3-7.7) k/uL Lymphocytes # (1.0-4.8) k/uL Sodium (137-145) mmol/L Chloride (98-107) mmol/L BUN (7-17) mg/dL Creatinine (0.52-1.04) mg/dL Glucose (74-99) mg/dL POC Glucose (mg/dL) 293 H 295 H 292 H (75-99) mg/dL 06/13/19 06/13/19 06/13/19 Range/Units 05:49 06:10 06:10 Hgb 8.6 L (11.4-16.0) gm/dL Hct 29.0 L (34.0-46.0) % MCV 75.5 L (80.0-100.0) fL MCH 22.4 L (25.0-35.0) pg MCHC 29.7 L (31.0-37.0) g/dL RDW 16.3 H (11.5-15.5) % Neutrophils # 9.4 H (1.3-7.7) k/uL Lymphocytes # 0.5 L (1.0-4.8) k/uL Sodium 136 L (137-145) mmol/L Chloride 96 L (98-107) mmol/L BUN 64 H (7-17) mg/dL Creatinine 1.67 H (0.52-1.04) mg/dL Glucose 235 H (74-99) mg/dL POC Glucose (mg/dL) 256 H (75-99) mg/dL 06/13/19 06/13/19 06/13/19 Range/Units 11:53 14:01 16:05 Hgb (11.4-16.0) gm/dL Hct (34.0-46.0) % MCV (80.0-100.0) fL MCH (25.0-35.0) pg MCHC (31.0-37.0) g/dL RDW (11.5-15.5) % Neutrophils # (1.3-7.7) k/uL Lymphocytes # (1.0-4.8) k/uL Sodium (137-145) mmol/L Chloride (98-107) mmol/L BUN (7-17) mg/dL Creatinine (0.52-1.04) mg/dL Glucose (74-99) mg/dL POC Glucose (mg/dL) 171 H 322 H 388 H (75-99) mg/dL Microbiology - Last 24 Hours (Table) 06/10/19 11:45 Blood Culture - Preliminary Blood No Growth after 72 hours Assessment and Plan Plan: Assessment: #1. Acute on chronic hypoxemic respiratory failure secondary to acute pneumonia involving the left lung and interstitial edema #2. Acute exacerbation of advanced chronic obstructive pulmonary disease related to the above #3. Recent hospitalization for acute community acquired pneumonia involving bilateral lower lobes, she was treated with clindamycin and cefepime and discharged home on oral Omnicef #4. History of stage III COPD, with the baseline FEV1 of 0.76 L or 35% of predi cted with severe diffusion abnormality, she is on chronic home oxygen at 4 L #5. Morbid obesity with a BMI of 44.8 kg/m #6. Diabetes mellitus type 2 #7. Hypothyroidism #8. Impaired performance and functional status secondary to poor lung function and multiple other chronic comorbidities #9. Acute kidney injury related to cardiorenal syndrome, nephrology has been consulted #10. Steroid-induced hyperglycemia Plan: Patient continues to improve, less dyspneic, she has been afebrile, vital signs are stable, no complaints of chest pain, no chills, no fevers. Ultrasound of the kidneys has been reviewed, showing no hydronephrosis or nephrolithiasis, nephrology has been consulted. Continue with current antibiotic coverage, switch the IV steroids to oral prednisone I performed a history & physical examination of the patient and discussed their management with my nurse practitioner, Amparo Crowder. I reviewed the nurse practitioner's note and agree with the documented findings and plan of care. Lung sounds are diminished, with expiratory wheezes. The findings and the impression was discussed with the patient. I attest to the documentation by the nurse practitioner. Time with Patient: Less than 30
[2019-06-13 18:24] LABS: Glucose,Whole Blood 438 mg/dL (75-99)
[2019-06-13 19:19] LABS: Iron Saturation 14.2 (12.00-45.00)
[2019-06-13 20:05] LABS: Glucose,Whole Blood 257 mg/dL (75-99)
[2019-06-13] MEDS: PRAVASTATIN SODIUM 40 MG TAB PO SCH (20:54)
[2019-06-13] MEDS: MONTELUKAST 10 MG TAB PO SCH (20:54)
[2019-06-13] MEDS ORDERED: FUROSEMIDE 10 MG/ML 4 ML VIAL IV SCH (21:00)
[2019-06-13 22:17] LABS: Glucose,Whole Blood 245 mg/dL (75-99)
[2019-06-13] MEDS: SODIUM CHLORIDE 0.9% 1,000 ML IV SCH (22:54)
[2019-06-13 23:44] LABS: Appearance,Urine Clear (Clear); Bilirubin,Urine Negative (Negative); Blood,Urine Negative (Negative); Color,Urine Light Yellow; Glucose,Urine (UA) Negative (Negative); Ketones,Urine Negative (Negative); Leukocyte Esterase,Urine Negative (Negative); Nitrite,Urine Negative (Negative); PH, Urine 5.5 (5.0-8.0); Protein,Urine Trace (Negative); Specific Gravity,Urine 1.008 (1.001-1.035); Urobilinogen,Urine <2.0 mg/dL (<2.0)
[2019-06-14 00:03] LABS: Glucose,Whole Blood 305 mg/dL (75-99)
[2019-06-14] MEDS: INSULIN REGULAR 100 UNIT in SODIUM CHLORIDE 0.9% 100 ML IV SCH ×3 (00:25→23:17)
[2019-06-14 02:03] LABS: Glucose,Whole Blood 323 mg/dL (75-99)
[2019-06-14 04:02] LABS: Glucose,Whole Blood 142 mg/dL (75-99)
[2019-06-14] MEDS: AZTREONAM 1 GM in SODIUM CHLORIDE 0.9% 50 ML IVPB SCH ×3 (04:10→20:52)
[2019-06-14 06:01] LABS: Glucose,Whole Blood 166 mg/dL (75-99)
[2019-06-14] MEDS: LEVOTHYROXINE 88 MCG TAB PO SCH (06:38)
[2019-06-14] MEDS: PANTOPRAZOLE 40 MG TABLET PO SCH (06:39)
[2019-06-14 07:02] LABS: Anisocytosis Slight; Basophils % (A) 0 %; Eosinophils # (A) 0.1 k/uL (0-0.7); Eosinophils % (A) 1 %; HCT 29.5 % (34.0-46.0); HGB 8.8 gm/dL (11.4-16.0); Hypochromasia Marked; Lymphocytes # (A) 1.2 k/uL (1.0-4.8); Lymphocytes % (A) 13 %; MCH 22.1 pg (25.0-35.0); MCV 73.6 fL (80.0-100.0); Mean Platelet Volume 6.8; Microcytosis Moderate; Monocytes # (A) 0.6 k/uL (0-1.0); Monocytes % (A) 7 %; Neutrophils % (A) 77 %; Platelet Count 182 k/uL (150-450); RDW 16.6 % (11.5-15.5)
[2019-06-14 07:09] LABS: Calcium 9.1 mg/dL (8.4-10.2); Magnesium 1.7 mg/dL (1.6-2.3); Potassium 5.1 mmol/L (3.5-5.1)
[2019-06-14] MEDS: FORMOTEROL FUMARATE 20 MCG/2 ML NEBU INHALATION SCH ×2 (08:13→19:58)
[2019-06-14] MEDS: BUDESONIDE 1 MG/2 ML NEBU INHALATION SCH ×2 (08:13→19:58)
[2019-06-14] MEDS: IPRATROPIUM-ALBUTEROL 3 ML NEB INHALATION SCH ×4 (08:13→19:58)
[2019-06-14] MEDS: HEPARIN SODIUM,PORCINE 5,000 UNIT/ML 1 ML VIAL SQ SCH ×3 (08:22→23:17)
[2019-06-14] MEDS: amLODIPine 10 MG TAB PO SCH (08:23)
[2019-06-14] MEDS: hydrALAZINE HCL 50 MG TAB PO SCH ×3 (08:23→20:52)
[2019-06-14] MEDS: THYROID, PORK 30 MG TAB PO SCH (08:23)
[2019-06-14] MEDS: predniSONE 10 MG TAB PO SCH (08:23)
[2019-06-14] MEDS: SERTRALINE 100 MG TAB PO SCH (08:23)
[2019-06-14 08:24] LABS: Glucose,Whole Blood 306 mg/dL (75-99)
[2019-06-14 09:23] LABS: Glucose,Whole Blood 330 mg/dL (75-99)
--- NOTE | 2019-06-14 09:25 | P.PN ---
Subjective Patient is seen in follow-up for acute kidney injury. Renal function is slightly worse. Creatinine 1.70 today. Urine output is good. Dyspnea is better. No vomiting or diarrhea. Oral intake is good. Currently on IV Lasix 40 mg twice daily. Vital signs are stable. General: The patient appeared well nourished and normally developed. HEENT: Head exam is unremarkable. Neck is without jugular venous distension. LUNGS: Lungs are clear to auscultation and percussion. Breath sounds decreased. HEART: Rate and Rhythm are regular. First and second heart sounds normal. No murmurs, rubs or gallops. ABDOMEN: Abdominal exam reveals normal bowel sounds. Non-tender and non- distended. No evidence of peritonitis. EXTREMITITES: Trace edema. Objective - Vital Signs Vital signs: Vital Signs Temp 97.8 F 06/14/19 04:00 Pulse 100 06/14/19 08:38 Resp 24 06/14/19 08:00 BP 152/67 06/14/19 08:00 Pulse Ox 95 06/14/19 08:16 Intake & Output 06/13/19 06/14/19 06/14/19 18:59 06:59 18:59 Intake Total 762.117 144.583 6 Output Total 675 Balance 762.117 -530.417 6 Weight 150.1 kg Intake: Intake, IV Titration 42.117 144.583 6 Amount Insulin Regular 100 unit 42.117 144.583 6 In Sodium Chloride 0.9% 100 ml @ Titrate IV .Q0M [facility] Rx#:[id number] Oral 720 Output: Urine 675 Other: Voiding Method Bedside Commode Bedside Commode # Voids 3 # Bowel Movements 1 - Labs CBC & Chem 7: 06/14/19 06:30 06/14/19 06:30 Labs: Abnormal Lab Results - Last 24 Hours (Table) 06/13/19 06/13/19 06/13/19 Range/Units 06:10 11:53 14:01 Hgb (11.4-16.0) gm/dL Hct (34.0-46.0) % MCV (80.0-100.0) fL MCH (25.0-35.0) pg MCHC (31.0-37.0) g/dL RDW (11.5-15.5) % Carbon Dioxide (22-30) mmol/L BUN (7-17) mg/dL Creatinine (0.52-1.04) mg/dL Glucose (74-99) mg/dL POC Glucose (mg/dL) 171 H 322 H (75-99) mg/dL Iron 45 L (50-170) ug/dL Urine Protein (Negative) 06/13/19 06/13/19 06/13/19 Range/Units 16:05 18:04 20:04 Hgb (11.4-16.0) gm/dL Hct (34.0-46.0) % MCV (80.0-100.0) fL MCH (25.0-35.0) pg MCHC (31.0-37.0) g/dL RDW (11.5-15.5) % Carbon Dioxide (22-30) mmol/L BUN (7-17) mg/dL Creatinine (0.52-1.04) mg/dL Glucose (74-99) mg/dL POC Glucose (mg/dL) 388 H 438 H 257 H (75-99) mg/dL Iron (50-170) ug/dL Urine Protein (Negative) 06/13/19 06/13/19 06/14/19 Range/Units 22:15 23:15 00:01 Hgb (11.4-16.0) gm/dL Hct (34.0-46.0) % MCV (80.0-100.0) fL MCH (25.0-35.0) pg MCHC (31.0-37.0) g/dL RDW (11.5-15.5) % Carbon Dioxide (22-30) mmol/L BUN (7-17) mg/dL Creatinine (0.52-1.04) mg/dL Glucose (74-99) mg/dL POC Glucose (mg/dL) 245 H 305 H (75-99) mg/dL Iron (50-170) ug/dL Urine Protein Trace H (Negative) 06/14/19 06/14/19 06/14/19 Range/Units 02:02 04:00 06:00 Hgb (11.4-16.0) gm/dL Hct (34.0-46.0) % MCV (80.0-100.0) fL MCH (25.0-35.0) pg MCHC (31.0-37.0) g/dL RDW (11.5-15.5) % Carbon Dioxide (22-30) mmol/L BUN (7-17) mg/dL Creatinine (0.52-1.04) mg/dL Glucose (74-99) mg/dL POC Glucose (mg/dL) 323 H 142 H 166 H (75-99) mg/dL Iron (50-170) ug/dL Urine Protein (Negative) 06/14/19 06/14/19 06/14/19 Range/Units 06:30 06:30 08:20 Hgb 8.8 L (11.4-16.0) gm/dL Hct 29.5 L (34.0-46.0) % MCV 73.6 L (80.0-100.0) fL MCH 22.1 L (25.0-35.0) pg MCHC 30.0 L (31.0-37.0) g/dL RDW 16.6 H (11.5-15.5) % Carbon Dioxide 32 H (22-30) mmol/L BUN 70 H (7-17) mg/dL Creatinine 1.78 H (0.52-1.04) mg/dL Glucose 166 H (74-99) mg/dL POC Glucose (mg/dL) 306 H (75-99) mg/dL Iron (50-170) ug/dL Urine Protein (Negative) Microbiology - Last 24 Hours (Table) 06/10/19 11:45 Blood Culture - Preliminary Blood No Growth after 72 hours Assessment and Plan Plan: Assessment: 1. Acute kidney injury mostly prerenal secondary to cardiorenal syndrome. Creatinine 1.78 today. UA is quite benign. No evidence of hydronephrosis noted on kidney ultrasound. 2. Acute on chronic diastolic CHF. 3. Diabetes mellitus. Blood sugars have been high due to IV steroids. Currently on insulin drip. 4. Dyspnea secondary to volume overload, pneumonia and COPD exacerbation. 5. Pneumonia maintained on antibiotics. 6. Benign hypertension. Partially due to steroids. 7. Rule out chronic kidney disease. Will need to establish baseline renal function. 8. Anemia. Iron deficiency noted. Plan: I will change Lasix to 40 mg orally twice daily. Avoid nephrotoxins. IV iron 3 doses. First dose today. Repeat electrolytes in the morning.
[2019-06-14] MEDS: FUROSEMIDE 40 MG TAB PO SCH ×2 (10:18→17:06)
[2019-06-14] MEDS ORDERED: LEVOFLOXACIN 750 MG TAB PO SCH (11:45)
[2019-06-14] MEDS: SODIUM FERRIC GLUCONAT-SUCROSE 125 MG in SODIUM CHLORIDE 0.9% 100 ML IVPB SCH (12:22)
[2019-06-14 12:28] LABS: Glucose,Whole Blood 73 mg/dL (75-99)
[2019-06-14 12:28] LABS: Glucose,Whole Blood 67 mg/dL (75-99)
[2019-06-14 14:14] LABS: Glucose,Whole Blood 311 mg/dL (75-99)
[2019-06-14 16:57] LABS: Glucose,Whole Blood 364 mg/dL (75-99)
[2019-06-14 18:28] LABS: Glucose,Whole Blood 479 mg/dL (75-99)
[2019-06-14] MEDS: ACETAMINOPHEN TAB 325 MG TAB PO PRN (18:29)
[2019-06-14] MEDS: SODIUM CHLORIDE 0.9% 1,000 ML IV SCH (19:07)
[2019-06-14 19:40] LABS: Glucose,Whole Blood 487 mg/dL (75-99)
[2019-06-14] MEDS: PRAVASTATIN SODIUM 40 MG TAB PO SCH (20:52)
[2019-06-14] MEDS: MONTELUKAST 10 MG TAB PO SCH (20:52)
[2019-06-14 21:07] LABS: Glucose,Whole Blood 327 mg/dL (75-99)
[2019-06-14 23:03] LABS: Glucose,Whole Blood 196 mg/dL (75-99)
[2019-06-15 00:57] LABS: Glucose,Whole Blood 181 mg/dL (75-99)
[2019-06-15 02:49] LABS: Glucose,Whole Blood 201 mg/dL (75-99)
[2019-06-15] MEDS: AZTREONAM 1 GM in SODIUM CHLORIDE 0.9% 50 ML IVPB SCH (04:39)
[2019-06-15 06:22] LABS: Glucose,Whole Blood 222 mg/dL (75-99)
[2019-06-15] MEDS: LEVOTHYROXINE 88 MCG TAB PO SCH (06:49)
[2019-06-15] MEDS: PANTOPRAZOLE 40 MG TABLET PO SCH (06:50)
[2019-06-15 06:58] LABS: Anisocytosis Slight; Basophils # (A) 0.1 k/uL (0-0.2); Basophils % (A) 1 %; Eosinophils # (A) 0.1 k/uL (0-0.7); Eosinophils % (A) 2 %; HCT 28.8 % (34.0-46.0); HGB 8.6 gm/dL (11.4-16.0); Hypochromasia Marked; Lymphocytes % (A) 11 %; MCH 22.2 pg (25.0-35.0); MCHC 29.9 g/dL (31.0-37.0); MCV 74.2 fL (80.0-100.0); Mean Platelet Volume 6.8; Microcytosis Moderate; Monocytes # (A) 0.4 k/uL (0-1.0); Monocytes % (A) 5 %; Neutrophils # (A) 6.8 k/uL (1.3-7.7); Neutrophils % (A) 81 %; Platelet Count 169 k/uL (150-450); RBC 3.88 m/uL (3.80-5.40); RDW 16.7 % (11.5-15.5); WBC 8.4 k/uL (3.8-10.6)
[2019-06-15 07:16] LABS: Magnesium 1.8 mg/dL (1.6-2.3); Potassium 4.4 mmol/L (3.5-5.1)
[2019-06-15 08:26] LABS: Glucose,Whole Blood 256 mg/dL (75-99)
[2019-06-15] MEDS: BUDESONIDE 1 MG/2 ML NEBU INHALATION SCH ×2 (08:34→20:10)
[2019-06-15] MEDS: IPRATROPIUM-ALBUTEROL 3 ML NEB INHALATION SCH ×4 (08:34→20:10)
[2019-06-15] MEDS: FORMOTEROL FUMARATE 20 MCG/2 ML NEBU INHALATION SCH ×3 (08:34→20:27)
[2019-06-15] MEDS: FUROSEMIDE 40 MG TAB PO SCH ×2 (08:36→17:07)
[2019-06-15] MEDS: amLODIPine 10 MG TAB PO SCH (08:36)
[2019-06-15] MEDS: SERTRALINE 100 MG TAB PO SCH (08:36)
[2019-06-15] MEDS: HEPARIN SODIUM,PORCINE 5,000 UNIT/ML 1 ML VIAL SQ SCH ×3 (08:36→22:36)
[2019-06-15] MEDS: THYROID, PORK 30 MG TAB PO SCH (08:36)
[2019-06-15] MEDS: hydrALAZINE HCL 50 MG TAB PO SCH ×3 (08:36→20:49)
[2019-06-15] MEDS: predniSONE 10 MG TAB PO SCH (08:36)
--- NOTE | 2019-06-15 10:12 | P.PN ---
Subjective Patient is seen in follow-up for acute kidney injury. Renal function is stable. Creatinine 1.80 today. Urine output is good. Dyspnea is better. No vomiting or diarrhea. Oral intake is good. Currently on oral Lasix 40 mg twice daily. Vital signs are stable. General: The patient appeared well nourished and normally developed. HEENT: Head exam is unremarkable. Neck is without jugular venous distension. LUNGS: Lungs are clear to auscultation and percussion. Breath sounds decreased. HEART: Rate and Rhythm are regular. First and second heart sounds normal. No murmurs, rubs or gallops. ABDOMEN: Abdominal exam reveals normal bowel sounds. Non-tender and non- distended. No evidence of peritonitis. EXTREMITITES: Trace edema. Objective - Vital Signs Vital signs: Vital Signs Temp 98.2 F 06/15/19 08:00 Pulse 102 H 06/15/19 08:58 Resp 20 06/15/19 08:00 BP 165/77 06/15/19 08:00 Pulse Ox 93 L 06/15/19 04:00 Intake & Output 06/14/19 06/15/19 06/15/19 18:59 06:59 18:59 Intake Total 83.292 90.854 193.883 Output Total 650 300 Balance -566.708 90.854 -106.117 Weight 116 kg Intake: Intake, IV Titration 83.292 90.854 13.883 Amount Insulin Regular 100 unit 83.292 90.854 13.883 In Sodium Chloride 0.9% 100 ml @ Titrate IV .Q0M [facility] Rx#:[id number] Oral 180 Output: Urine 650 300 Other: Voiding Method Bedside Commode Bedside Commode # Voids 3 # Bowel Movements 1 1 1 - Labs CBC & Chem 7: 06/15/19 06:29 06/15/19 06:29 Labs: Abnormal Lab Results - Last 24 Hours (Table) 06/14/19 06/14/19 06/14/19 Range/Units 12:18 12:20 14:06 Hgb (11.4-16.0) gm/dL Hct (34.0-46.0) % MCV (80.0-100.0) fL MCH (25.0-35.0) pg MCHC (31.0-37.0) g/dL RDW (11.5-15.5) % Carbon Dioxide (22-30) mmol/L BUN (7-17) mg/dL Creatinine (0.52-1.04) mg/dL Glucose (74-99) mg/dL POC Glucose (mg/dL) 67 L 73 L 311 H (75-99) mg/dL 06/14/19 06/14/19 06/14/19 Range/Units 16:23 18:24 19:38 Hgb (11.4-16.0) gm/dL Hct (34.0-46.0) % MCV (80.0-100.0) fL MCH (25.0-35.0) pg MCHC (31.0-37.0) g/dL RDW (11.5-15.5) % Carbon Dioxide (22-30) mmol/L BUN (7-17) mg/dL Creatinine (0.52-1.04) mg/dL Glucose (74-99) mg/dL POC Glucose (mg/dL) 364 H 479 H 487 H (75-99) mg/dL 06/14/19 06/14/19 06/15/19 Range/Units 21:06 23:01 00:55 Hgb (11.4-16.0) gm/dL Hct (34.0-46.0) % MCV (80.0-100.0) fL MCH (25.0-35.0) pg MCHC (31.0-37.0) g/dL RDW (11.5-15.5) % Carbon Dioxide (22-30) mmol/L BUN (7-17) mg/dL Creatinine (0.52-1.04) mg/dL Glucose (74-99) mg/dL POC Glucose (mg/dL) 327 H 196 H 181 H (75-99) mg/dL 06/15/19 06/15/19 06/15/19 Range/Units 02:48 06:20 06:29 Hgb 8.6 L (11.4-16.0) gm/dL Hct 28.8 L (34.0-46.0) % MCV 74.2 L (80.0-100.0) fL MCH 22.2 L (25.0-35.0) pg MCHC 29.9 L (31.0-37.0) g/dL RDW 16.7 H (11.5-15.5) % Carbon Dioxide (22-30) mmol/L BUN (7-17) mg/dL Creatinine (0.52-1.04) mg/dL Glucose (74-99) mg/dL POC Glucose (mg/dL) 201 H 222 H (75-99) mg/dL 06/15/19 06/15/19 Range/Units 06:29 08:23 Hgb (11.4-16.0) gm/dL Hct (34.0-46.0) % MCV (80.0-100.0) fL MCH (25.0-35.0) pg MCHC (31.0-37.0) g/dL RDW (11.5-15.5) % Carbon Dioxide 31 H (22-30) mmol/L BUN 67 H (7-17) mg/dL Creatinine 1.80 H (0.52-1.04) mg/dL Glucose 207 H (74-99) mg/dL POC Glucose (mg/dL) 256 H (75-99) mg/dL Microbiology - Last 24 Hours (Table) 06/10/19 11:45 Blood Culture - Preliminary Blood No Growth after 96 hours Assessment and Plan Plan: Assessment: 1. Acute kidney injury mostly prerenal secondary to cardiorenal syndrome. Creatinine stable at 1.8 today. UA is quite benign. No evidence of hydronephrosis noted on kidney ultrasound. 2. Acute on chronic diastolic CHF. 3. Diabetes mellitus. Blood sugars have been high due to steroids. 4. Dyspnea secondary to volume overload, pneumonia and COPD exacerbation. 5. Pneumonia maintained on antibiotics. 6. Benign hypertension. Partially due to steroids. 7. Rule out chronic kidney disease. Will need to establish baseline renal function. 8. Anemia. Iron deficiency noted. Plan: Maintain lasix 40 mg orally twice daily. Avoid nephrotoxins. IV iron 3 doses. Second dose today. Repeat electrolytes in the morning.
[2019-06-15 10:16] LABS: Glucose,Whole Blood 268 mg/dL (75-99)
--- NOTE | 2019-06-15 10:54 | P.PN ---
Subjective Progress Note Date: 06/14/19 Principal diagnosis: Acute renal injury Hypoxic respiratory failure COPD exacerbation Community-acquired pneumonia Acute exacerbation CHF 68-year-old female with a past medical history significant for stage III COPD, chronic hypoxic respiratory failure on 4 L home oxygen, type 2 diabetes, hypothyroid, hypertension, history of ARDS requiring intubation and mechanical ventilation. She presents to the emergency department with shortness of breath and increased oxygen requirements over the past few days. She was recently admitted for multifocal pneumonia and treated at that time with cefepime, IV steroids, clindamycin, inhaled bronchodilators; patient was discharged with st eroid taper and Omnicef. She states she initially felt well but after she completed her steroids she began to experience increased secretions and shortness of breath. Yesterday she required 5 L oxygen and so presented to the emergency department. She also complains of low-grade fevers at home and chills with T-max of 99. She is a former smoker. In the ED she was tachypneic and hypoxic chest x-ray showed multifocal pneumonia with bilateral infiltrates and interstitial prominence WBC 8.9 BNP 550 pro calcitonin 0.5. Patient initially required BiPAP but was transitioned to high flow. She was started on aztreonam and Levaquin, as well as IV Solu-Medrol and inhaled steroids and DuoNeb's. 06/14/2019 Patient is seen and evaluated in room at bedside; does report improvement in work of breathing Lab review shows a white blood count of 9.0, hemoglobin 8.8, hematocrit 29.5, and platelet count of 182; sodium 139, potassium 5.5.1, BUN of 70 with creatinine of 1.78 Creatinine continues to creep up; patient has fair urine output nephrology is following; recommending to change Lasix to 40 mg twice a day and avoid nephrotoxins; patient is to receive IV iron supplement for 3 doses; first dose is being administered today; patient remains on IV steroids, DuoNeb nebulizer treatments and is active and Levaquin Objective - Vital Signs Vital signs: Vital Signs Temp 97.8 F 06/14/19 04:00 Pulse 100 06/14/19 08:38 Resp 24 06/14/19 08:00 BP 152/67 06/14/19 08:00 Pulse Ox 95 06/14/19 08:16 Intake & Output 06/13/19 06/14/19 06/14/19 18:59 06:59 18:59 Intake Total 762.117 144.583 6 Output Total 675 Balance 762.117 -530.417 6 Weight 150.1 kg Intake: Intake, IV Titration 42.117 144.583 6 Amount Insulin Regular 100 unit 42.117 144.583 6 In Sodium Chloride 0.9% 100 ml @ Titrate IV .Q0M [facility] Rx#:[id number] Oral 720 Output: Urine 675 Other: Voiding Method Bedside Commode Bedside Commode # Voids 3 # Bowel Movements 1 - Exam General: non toxic, no distress, appears at stated age Derm: warm, dry Head: atraumatic, normocephalic, symmetric Eyes: EOMI, no lid lag, anicteric sclera Mouth: no lip lesion, mucus membranes moist Cardiovascular: S1S2 reg, systolic murmur, positive posterior tibial pulse bilateral, Lungs: Poor air entry, rhonchi throughout, no rales, no accessory muscle use Abdominal: soft, nontender to palpation, no guarding, no appreciable organomegaly Ext: no gross muscle atrophy, 1+ edema, no contractures Neuro: CN II-XI grossly intact, no focal neuro deficits - Labs CBC & Chem 7: 06/15/19 06:29 06/15/19 06:29 Labs: Abnormal Lab Results - Last 24 Hours (Table) 06/13/19 06/13/19 06/13/19 Range/Units 06:10 06:10 11:53 Hgb 8.6 L (11.4-16.0) gm/dL Hct 29.0 L (34.0-46.0) % MCV 75.5 L (80.0-100.0) fL MCH 22.4 L (25.0-35.0) pg MCHC 29.7 L (31.0-37.0) g/dL RDW 16.3 H (11.5-15.5) % Neutrophils # 9.4 H (1.3-7.7) k/uL Lymphocytes # 0.5 L (1.0-4.8) k/uL Carbon Dioxide (22-30) mmol/L BUN (7-17) mg/dL Creatinine (0.52-1.04) mg/dL Glucose (74-99) mg/dL POC Glucose (mg/dL) 171 H (75-99) mg/dL Iron 45 L (50-170) ug/dL Urine Protein (Negative) 06/13/19 06/13/19 06/13/19 Range/Units 14:01 16:05 18:04 Hgb (11.4-16.0) gm/dL Hct (34.0-46.0) % MCV (80.0-100.0) fL MCH (25.0-35.0) pg MCHC (31.0-37.0) g/dL RDW (11.5-15.5) % Neutrophils # (1.3-7.7) k/uL Lymphocytes # (1.0-4.8) k/uL Carbon Dioxide (22-30) mmol/L BUN (7-17) mg/dL Creatinine (0.52-1.04) mg/dL Glucose (74-99) mg/dL POC Glucose (mg/dL) 322 H 388 H 438 H (75-99) mg/dL Iron (50-170) ug/dL Urine Protein (Negative) 06/13/19 06/13/19 06/13/19 Range/Units 20:04 22:15 23:15 Hgb (11.4-16.0) gm/dL Hct (34.0-46.0) % MCV (80.0-100.0) fL MCH (25.0-35.0) pg MCHC (31.0-37.0) g/dL RDW (11.5-15.5) % Neutrophils # (1.3-7.7) k/uL Lymphocytes # (1.0-4.8) k/uL Carbon Dioxide (22-30) mmol/L BUN (7-17) mg/dL Creatinine (0.52-1.04) mg/dL Glucose (74-99) mg/dL POC Glucose (mg/dL) 257 H 245 H (75-99) mg/dL Iron (50-170) ug/dL Urine Protein Trace H (Negative) 06/14/19 06/14/19 06/14/19 Range/Units 00:01 02:02 04:00 Hgb (11.4-16.0) gm/dL Hct (34.0-46.0) % MCV (80.0-100.0) fL MCH (25.0-35.0) pg MCHC (31.0-37.0) g/dL RDW (11.5-15.5) % Neutrophils # (1.3-7.7) k/uL Lymphocytes # (1.0-4.8) k/uL Carbon Dioxide (22-30) mmol/L BUN (7-17) mg/dL Creatinine (0.52-1.04) mg/dL Glucose (74-99) mg/dL POC Glucose (mg/dL) 305 H 323 H 142 H (75-99) mg/dL Iron (50-170) ug/dL Urine Protein (Negative) 06/14/19 06/14/19 06/14/19 Range/Units 06:00 06:30 06:30 Hgb 8.8 L (11.4-16.0) gm/dL Hct 29.5 L (34.0-46.0) % MCV 73.6 L (80.0-100.0) fL MCH 22.1 L (25.0-35.0) pg MCHC 30.0 L (31.0-37.0) g/dL RDW 16.6 H (11.5-15.5) % Neutrophils # (1.3-7.7) k/uL Lymphocytes # (1.0-4.8) k/uL Carbon Dioxide 32 H (22-30) mmol/L BUN 70 H (7-17) mg/dL Creatinine 1.78 H (0.52-1.04) mg/dL Glucose 166 H (74-99) mg/dL POC Glucose (mg/dL) 166 H (75-99) mg/dL Iron (50-170) ug/dL Urine Protein (Negative) 06/14/19 Range/Units 08:20 Hgb (11.4-16.0) gm/dL Hct (34.0-46.0) % MCV (80.0-100.0) fL MCH (25.0-35.0) pg MCHC (31.0-37.0) g/dL RDW (11.5-15.5) % Neutrophils # (1.3-7.7) k/uL Lymphocytes # (1.0-4.8) k/uL Carbon Dioxide (22-30) mmol/L BUN (7-17) mg/dL Creatinine (0.52-1.04) mg/dL Glucose (74-99) mg/dL POC Glucose (mg/dL) 306 H (75-99) mg/dL Iron (50-170) ug/dL Urine Protein (Negative) Microbiology - Last 24 Hours (Table) 06/10/19 11:45 Blood Culture - Preliminary Blood No Growth after 72 hours Assessment and Plan Assessment: 1. Acute hypoxic respiratory failure. Secondary to pneumonia/ acute exacerba tion CHF. procalcitonin 0.5. Blood culture and sputum culture sent. Continue aztreonam and Levaquin. DuoNeb's, inhaled corticosteroids, IV Solu-Medrol - Patient is currently on 6 L of oxygen with a pulse ox of 96%; labs are stable and blood cultures have been negative; patient has been started on IV diuretics in form of Lasix 40 mg IV every 12 hours; continue with IV Solu-Medrol 40 mg every 8 hours 2. Multifocal pneumonia. Pulmonology consulted, - Continue with IV antibiotics in form of a history and I am 1 g IV every 8 hours and Levaquin 750 mg IV every 48 hours 3. COPD exacerbation - IV Solu-Medrol 40 mg every 8 hours; nebulized circumflex treatments with bronchodilators and Pulmicort - O2 per nasal cannula keeping SpO2 greater than 90% 4. T2DM; uncontrolled secondary to steroids. - Patient remains on Insulin gtt with IV steroids; we will continue to monitor Accu-Cheks per protocol 5. HTN, - Stable on Norvasc 10 mg daily hypothyroid. Continue home medications 6. Hypothyroidism; Synthroid 88 MCG daily 7. DVT prophylaxis; subcu heparin CODE STATUS; full code Time with Patient: Greater than 30
[2019-06-15] MEDS: SODIUM FERRIC GLUCONAT-SUCROSE 125 MG in SODIUM CHLORIDE 0.9% 100 ML IVPB SCH (11:00)
[2019-06-15 12:12] LABS: Glucose,Whole Blood 144 mg/dL (75-99)
--- NOTE | 2019-06-15 12:47 | P.PN ---
Subjective Progress Note Date: 06/15/19 On 06/15/2019, patient has no specific complaints. The patient is currently on 4 L about 2 by nasal cannula. She is moving around with help. No cough. No sputum production. No chest tightness. No wheezing. No other significant events otherwise over the past 24 hours pH she clearly states that she is back to her baseline. The patient has been diuresed well with IV Lasix. The patient was also covered with a combination of Levaquin and aztreonam as broad-spectrum antibiotic coverage. He is still complaining of prednisone burst taper and currently she is taking 30 mg prednisone as part of her taper. Objective - Vital Signs Vital signs: Vital Signs Temp 98.2 F 06/15/19 08:00 Pulse 100 06/15/19 12:43 Resp 20 06/15/19 08:00 BP 165/77 06/15/19 08:00 Pulse Ox 93 L 06/15/19 04:00 Intake & Output 06/14/19 06/15/19 06/15/19 18:59 06:59 18:59 Intake Total 83.292 90.854 229.158 Output Total 650 300 Balance -566.708 90.854 -70.842 Weight 116 kg Intake: Intake, IV Titration 83.292 90.854 49.158 Amount Insulin Regular 100 unit 83.292 90.854 49.158 In Sodium Chloride 0.9% 100 ml @ Titrate IV .Q0M [facility] Rx#:[id number] Oral 180 Output: Urine 650 300 Other: Voiding Method Bedside Commode Bedside Commode # Voids 3 # Bowel Movements 1 1 1 - Exam GENERAL EXAM: Alert, pleasant 68-year-old white female, 4 L of oxygen, comfortable in no apparent distress. HEAD: Normocephalic/atraumatic. EYES: Normal reaction of pupils, equal size. Conjunctiva pink, sclera white. NOSE: Clear with pink turbinates. THROAT: No erythema or exudates. NECK: No masses, no JVD, no thyroid enlargement, no adenopathy. CHEST: No chest wall deformity. Symmetrical expansion. LUNGS: Equal air entry with scattered bibasilar crackles and diminished breath sounds with minimal end expiratory wheezing CVS: Regular rate and rhythm, normal S1 and S2, no gallops, no murmurs, no rubs ABDOMEN: Soft, nontender. No hepatosplenomegaly, normal bowel sounds, no guarding or rigidity. EXTREMITIES: No clubbing, no edema, no cyanosis, 2+ pulses and upper and lower extremities. MUSCULOSKELETAL: Muscle strength and tone normal. SPINE: No scoliosis or deformity SKIN: No rashes CENTRAL NERVOUS SYSTEM: Alert and oriented -3. No focal deficits, tone is normal in all 4 extremities. PSYCHIATRIC: Alert and oriented -3. Appropriate affect. Intact judgment and insight. - Labs CBC & Chem 7: 06/15/19 06:29 06/15/19 06:29 Labs: Abnormal Lab Results - Last 24 Hours (Table) 06/14/19 06/14/19 06/14/19 Range/Units 14:06 16:23 18:24 Hgb (11.4-16.0) gm/dL Hct (34.0-46.0) % MCV (80.0-100.0) fL MCH (25.0-35.0) pg MCHC (31.0-37.0) g/dL RDW (11.5-15.5) % Carbon Dioxide (22-30) mmol/L BUN (7-17) mg/dL Creatinine (0.52-1.04) mg/dL Glucose (74-99) mg/dL POC Glucose (mg/dL) 311 H 364 H 479 H (75-99) mg/dL 06/14/19 06/14/19 06/14/19 Range/Units 19:38 21:06 23:01 Hgb (11.4-16.0) gm/dL Hct (34.0-46.0) % MCV (80.0-100.0) fL MCH (25.0-35.0) pg MCHC (31.0-37.0) g/dL RDW (11.5-15.5) % Carbon Dioxide (22-30) mmol/L BUN (7-17) mg/dL Creatinine (0.52-1.04) mg/dL Glucose (74-99) mg/dL POC Glucose (mg/dL) 487 H 327 H 196 H (75-99) mg/dL 06/15/19 06/15/19 06/15/19 Range/Units 00:55 02:48 06:20 Hgb (11.4-16.0) gm/dL Hct (34.0-46.0) % MCV (80.0-100.0) fL MCH (25.0-35.0) pg MCHC (31.0-37.0) g/dL RDW (11.5-15.5) % Carbon Dioxide (22-30) mmol/L BUN (7-17) mg/dL Creatinine (0.52-1.04) mg/dL Glucose (74-99) mg/dL POC Glucose (mg/dL) 181 H 201 H 222 H (75-99) mg/dL 06/15/19 06/15/19 06/15/19 Range/Units 06:29 06:29 08:23 Hgb 8.6 L (11.4-16.0) gm/dL Hct 28.8 L (34.0-46.0) % MCV 74.2 L (80.0-100.0) fL MCH 22.2 L (25.0-35.0) pg MCHC 29.9 L (31.0-37.0) g/dL RDW 16.7 H (11.5-15.5) % Carbon Dioxide 31 H (22-30) mmol/L BUN 67 H (7-17) mg/dL Creatinine 1.80 H (0.52-1.04) mg/dL Glucose 207 H (74-99) mg/dL POC Glucose (mg/dL) 256 H (75-99) mg/dL 06/15/19 06/15/19 Range/Units 10:14 11:58 Hgb (11.4-16.0) gm/dL Hct (34.0-46.0) % MCV (80.0-100.0) fL MCH (25.0-35.0) pg MCHC (31.0-37.0) g/dL RDW (11.5-15.5) % Carbon Dioxide (22-30) mmol/L BUN (7-17) mg/dL Creatinine (0.52-1.04) mg/dL Glucose (74-99) mg/dL POC Glucose (mg/dL) 268 H 144 H (75-99) mg/dL Microbiology - Last 24 Hours (Table) 06/10/19 11:45 Blood Culture - Preliminary Blood No Growth after 96 hours Assessment and Plan Plan: #1. Acute on chronic hypoxemic respiratory failure secondary to acute pneumonia involving the left lung versus interstitial edema. Noted the patient improved with a combination of antibiotics and diuretics. The patient is back to her b aseline on 40 to about 2 by nasal cannula. #2. Acute exacerbation of advanced chronic obstructive pulmonary disease related to the above, improving #3. Recent hospitalization for acute community acquired pneumonia involving bilateral lower lobes, she was treated with clindamycin and cefepime and discharged home on oral Omnicef #4. History of stage III COPD, with the baseline FEV1 of 0.76 L or 35% of predicted with severe diffusion abnormality, she is on chronic home oxygen at 4 L #5. Morbid obesity with a BMI of 44.8 kg/m #6. Diabetes mellitus type 2 #7. Hypothyroidism #8. Impaired performance and functional status secondary to poor lung function and multiple other chronic comorbidities #9. Acute kidney injury related to cardiorenal syndrome, nephrology has been consulted #10. Steroid-induced hyperglycemia Plan Complete a prednisone burst taper. Continue Levaquin and discontinue the aztreonam. The patient is on Lasix 40 mg by mouth twice a day. Continue bronchodilators. She is back to her baseline of Bactrim by nasal cannula. Discharge planning is in progress.
[2019-06-15 14:17] LABS: Glucose,Whole Blood 300 mg/dL (75-99)
--- NOTE | 2019-06-15 16:19 | P.PN ---
Subjective Progress Note Date: 06/15/19 Principal diagnosis: Acute renal injury Hypoxic respiratory failure COPD exacerbation Community-acquired pneumonia Acute exacerbation CHF 68-year-old female with a past medical history significant for stage III COPD, chronic hypoxic respiratory failure on 4 L home oxygen, type 2 diabetes, hypothyroid, hypertension, history of ARDS requiring intubation and mechanical ventilation. She presents to the emergency department with shortness of breath and increased oxygen requirements over the past few days. She was recently admitted for multifocal pneumonia and treated at that time with cefepime, IV steroids, clindamycin, inhaled bronchodilators; patient was discharged with st eroid taper and Omnicef. She states she initially felt well but after she completed her steroids she began to experience increased secretions and shortness of breath. Yesterday she required 5 L oxygen and so presented to the emergency department. She also complains of low-grade fevers at home and chills with T-max of 99. She is a former smoker. In the ED she was tachypneic and hypoxic chest x-ray showed multifocal pneumonia with bilateral infiltrates and interstitial prominence WBC 8.9 BNP 550 pro calcitonin 0.5. Patient initially required BiPAP but was transitioned to high flow. She was started on aztreonam and Levaquin, as well as IV Solu-Medrol and inhaled steroids and DuoNeb's. 06/14/2019 Patient is seen and evaluated in room at bedside; does report improvement in work of breathing Lab review shows a white blood count of 9.0, hemoglobin 8.8, hematocrit 29.5, and platelet count of 182; sodium 139, potassium 5.5.1, BUN of 70 with creatinine of 1.78 Creatinine continues to creep up; patient has fair urine output nephrology is following; recommending to change Lasix to 40 mg twice a day and avoid nephrotoxins; patient is to receive IV iron supplement for 3 doses; first dose is being administered today; patient remains on IV steroids, DuoNeb nebulizer treatments and is active and Levaquin 06/15/2019, patient has no specific complaintsand wants to be discharged home. The patient is currently on 4 L about 2 by nasal cannula. She is moving around with help. No cough. No sputum production. No chest tightness. No wheezing. No other significant events otherwise over the past 24 hours pH she clearly states that she is back to her baseline. The patient has been diuresed well with IV Lasix. The patient was also covered with a combination of Levaquin and aztreonam as broad-spectrum antibiotic coverage. He is still complaining of prednisone burst taper and currently she is taking 30 mg prednisone as part of her taper. patient remains on IV iron supplementation for his second dose this morning; patient may be discharged in next 24 hours after third dose of iron supplement Objective - Vital Signs Vital signs: Vital Signs Temp 98.2 F 06/15/19 08:00 Pulse 102 H 06/15/19 08:58 Resp 20 06/15/19 08:00 BP 165/77 06/15/19 08:00 Pulse Ox 93 L 06/15/19 04:00 Intake & Output 06/14/19 06/15/19 06/15/19 18:59 06:59 18:59 Intake Total 83.292 90.854 193.883 Output Total 650 300 Balance -566.708 90.854 -106.117 Weight 116 kg Intake: Intake, IV Titration 83.292 90.854 13.883 Amount Insulin Regular 100 unit 83.292 90.854 13.883 In Sodium Chloride 0.9% 100 ml @ Titrate IV .Q0M [facility] Rx#:[id number] Oral 180 Output: Urine 650 300 Other: Voiding Method Bedside Commode Bedside Commode # Voids 3 # Bowel Movements 1 1 1 - Exam General: non toxic, no distress, appears at stated age Derm: warm, dry Head: atraumatic, normocephalic, symmetric Eyes: EOMI, no lid lag, anicteric sclera Mouth: no lip lesion, mucus membranes moist Cardiovascular: S1S2 reg, systolic murmur, positive posterior tibial pulse bilateral, Lungs: Poor air entry, rhonchi throughout, no rales, no accessory muscle use Abdominal: soft, nontender to palpation, no guarding, no appreciable organomegaly Ext: no gross muscle atrophy, 1+ edema, no contractures Neuro: CN II-XI grossly intact, no focal neuro deficits - Labs CBC & Chem 7: 06/15/19 06:29 06/15/19 06:29 Labs: Abnormal Lab Results - Last 24 Hours (Table) 06/14/19 06/14/19 06/14/19 Range/Units 12:18 12:20 14:06 Hgb (11.4-16.0) gm/dL Hct (34.0-46.0) % MCV (80.0-100.0) fL MCH (25.0-35.0) pg MCHC (31.0-37.0) g/dL RDW (11.5-15.5) % Carbon Dioxide (22-30) mmol/L BUN (7-17) mg/dL Creatinine (0.52-1.04) mg/dL Glucose (74-99) mg/dL POC Glucose (mg/dL) 67 L 73 L 311 H (75-99) mg/dL 06/14/19 06/14/19 06/14/19 Range/Units 16:23 18:24 19:38 Hgb (11.4-16.0) gm/dL Hct (34.0-46.0) % MCV (80.0-100.0) fL MCH (25.0-35.0) pg MCHC (31.0-37.0) g/dL RDW (11.5-15.5) % Carbon Dioxide (22-30) mmol/L BUN (7-17) mg/dL Creatinine (0.52-1.04) mg/dL Glucose (74-99) mg/dL POC Glucose (mg/dL) 364 H 479 H 487 H (75-99) mg/dL 06/14/19 06/14/19 06/15/19 Range/Units 21:06 23:01 00:55 Hgb (11.4-16.0) gm/dL Hct (34.0-46.0) % MCV (80.0-100.0) fL MCH (25.0-35.0) pg MCHC (31.0-37.0) g/dL RDW (11.5-15.5) % Carbon Dioxide (22-30) mmol/L BUN (7-17) mg/dL Creatinine (0.52-1.04) mg/dL Glucose (74-99) mg/dL POC Glucose (mg/dL) 327 H 196 H 181 H (75-99) mg/dL 06/15/19 06/15/19 06/15/19 Range/Units 02:48 06:20 06:29 Hgb 8.6 L (11.4-16.0) gm/dL Hct 28.8 L (34.0-46.0) % MCV 74.2 L (80.0-100.0) fL MCH 22.2 L (25.0-35.0) pg MCHC 29.9 L (31.0-37.0) g/dL RDW 16.7 H (11.5-15.5) % Carbon Dioxide (22-30) mmol/L BUN (7-17) mg/dL Creatinine (0.52-1.04) mg/dL Glucose (74-99) mg/dL POC Glucose (mg/dL) 201 H 222 H (75-99) mg/dL 06/15/19 06/15/19 06/15/19 Range/Units 06:29 08:23 10:14 Hgb (11.4-16.0) gm/dL Hct (34.0-46.0) % MCV (80.0-100.0) fL MCH (25.0-35.0) pg MCHC (31.0-37.0) g/dL RDW (11.5-15.5) % Carbon Dioxide 31 H (22-30) mmol/L BUN 67 H (7-17) mg/dL Creatinine 1.80 H (0.52-1.04) mg/dL Glucose 207 H (74-99) mg/dL POC Glucose (mg/dL) 256 H 268 H (75-99) mg/dL Microbiology - Last 24 Hours (Table) 06/10/19 11:45 Blood Culture - Preliminary Blood No Growth after 96 hours Assessment and Plan Assessment: 1. Acute hypoxic respiratory failure. Secondary to pneumonia/ acute exacerbation CHF. procalcitonin 0.5. Blood culture and sputum culture sent. Continue aztreonam and Levaquin. DuoNeb's, inhaled corticosteroids, IV Solu- Medrol - Patient is currently on 6 L of oxygen with a pulse ox of 96%; labs are stable and blood cultures have been negative; patient has been started on IV diuretics in form of Lasix 40 mg IV every 12 hours; continue with IV Solu-Medrol 40 mg every 8 hours 2. Multifocal pneumonia. Pulmonology consulted, - Continue with IV antibiotics in form of a history and I am 1 g IV every 8 hours and Levaquin 750 mg IV every 48 hours 3. COPD exacerbation - IV Solu-Medrol 40 mg every 8 hours; nebulized circumflex treatments with bronchodilators and Pulmicort - O2 per nasal cannula keeping SpO2 greater than 90% 4. T2DM; uncontrolled secondary to steroids. - Patient remains on Insulin gtt with IV steroids; we will continue to monitor Accu-Cheks per protocol 5. HTN, - Stable on Norvasc 10 mg daily hypothyroid. Continue home medications 6. Hypothyroidism; Synthroid 88 MCG daily 7. DVT prophylaxis; subcu heparin CODE STATUS; full code Time with Patient: Greater than 30
[2019-06-15 16:37] LABS: Glucose,Whole Blood 386 mg/dL (75-99)
[2019-06-15] MEDS: INSULIN REGULAR 100 UNIT in SODIUM CHLORIDE 0.9% 100 ML IV SCH (17:05)
[2019-06-15 18:33] LABS: Glucose,Whole Blood 406 mg/dL (75-99)
[2019-06-15] MEDS: SODIUM CHLORIDE 0.9% 1,000 ML IV SCH (18:34)
[2019-06-15 20:41] LABS: Glucose,Whole Blood 133 mg/dL (75-99)
[2019-06-15] MEDS: PRAVASTATIN SODIUM 40 MG TAB PO SCH (20:49)
[2019-06-15] MEDS: MONTELUKAST 10 MG TAB PO SCH (20:49)
[2019-06-15 22:32] LABS: Glucose,Whole Blood 254 mg/dL (75-99)
[2019-06-16] MEDS: INSULIN REGULAR 100 UNIT in SODIUM CHLORIDE 0.9% 100 ML IV SCH ×2
[2019-06-16 00:28] LABS: Glucose,Whole Blood 270 mg/dL (75-99)
[2019-06-16 02:47] LABS: Glucose,Whole Blood 192 mg/dL (75-99)
[2019-06-16 04:21] LABS: Glucose,Whole Blood 119 mg/dL (75-99)
[2019-06-16 05:34] LABS: Glucose,Whole Blood 113 mg/dL (75-99)
[2019-06-16 06:31] LABS: Anisocytosis Slight; Basophils # (A) 0.1 k/uL (0-0.2); Basophils % (A) 1 %; Eosinophils # (A) 0.3 k/uL (0-0.7); Eosinophils % (A) 2 %; HCT 33.3 % (34.0-46.0); HGB 9.8 gm/dL (11.4-16.0); Hypochromasia Marked; Lymphocytes % (A) 12 %; MCH 22.6 pg (25.0-35.0); MCHC 29.5 g/dL (31.0-37.0); MCV 76.4 fL (80.0-100.0); Mean Platelet Volume 6.7; Microcytosis Slight; Monocytes # (A) 0.7 k/uL (0-1.0); Monocytes % (A) 5 %; Neutrophils # (A) 13.1 k/uL (1.3-7.7); Neutrophils % (A) 80 %; Platelet Count 255 k/uL (150-450); RBC 4.36 m/uL (3.80-5.40); RDW 17.1 % (11.5-15.5); WBC 16.3 k/uL (3.8-10.6)
[2019-06-16 07:07] LABS: Glucose,Whole Blood 131 mg/dL (75-99)
[2019-06-16 07:28] LABS: Glucose,Whole Blood 135 mg/dL (75-99)
[2019-06-16 08:16] VITALS: BP 172/69; RESP 16; TEMP 98.6
[2019-06-16] MEDS: HEPARIN SODIUM,PORCINE 5,000 UNIT/ML 1 ML VIAL SQ SCH (08:53)
[2019-06-16] MEDS: hydrALAZINE HCL 50 MG TAB PO SCH (08:53)
[2019-06-16] MEDS: PANTOPRAZOLE 40 MG TABLET PO SCH (08:53)
[2019-06-16] MEDS: predniSONE 10 MG TAB PO SCH (08:53)
[2019-06-16] MEDS: amLODIPine 10 MG TAB PO SCH (08:54)
[2019-06-16] MEDS: FUROSEMIDE 40 MG TAB PO SCH (08:54)
[2019-06-16] MEDS: SERTRALINE 100 MG TAB PO SCH (08:54)
[2019-06-16] MEDS: LEVOTHYROXINE 88 MCG TAB PO SCH (08:54)
[2019-06-16 09:48] LABS: Glucose,Whole Blood 214 mg/dL (75-99)
[2019-06-16 09:50] VITALS: BMI 47.0
[2019-06-16] MEDS: BUDESONIDE 1 MG/2 ML NEBU INHALATION SCH (10:13)
[2019-06-16] MEDS: FORMOTEROL FUMARATE 20 MCG/2 ML NEBU INHALATION SCH (10:13)
[2019-06-16] MEDS: IPRATROPIUM-ALBUTEROL 3 ML NEB INHALATION SCH ×2 (10:13)
[2019-06-16 10:35] VITALS: PULSE 100
[2019-06-16 12:10] LABS: Glucose,Whole Blood 243 mg/dL (75-99)
[2019-06-16] MEDS: THYROID, PORK 30 MG TAB PO SCH (12:11)
[2019-06-16] MEDS: SODIUM FERRIC GLUCONAT-SUCROSE 125 MG in SODIUM CHLORIDE 0.9% 100 ML IVPB SCH (12:11)
--- NOTE | 2019-06-16 12:39 | P.PN ---
Subjective Progress Note Date: 06/16/19 Principal diagnosis: Acute on chronic hypoxemic respiratory failure This is a 68-year-old white female patient of Dr. Banks with history of advanced COPD, with baseline FEV1 of 0.76 L or 35% of predicted with severe diffusion abnormality, consistent with stage III COPD with chronic hypoxemic respiratory failure, patient wears 4 L of oxygen on a regular basis, other history includes diabetes, hypertension, hypothyroidism, obesity, previous episode of pneumonia with ARDS requiring intubation and mechanical ventilation, patient is a former smoker. Patient was recently hospitalized for pneumonia, the patient's chest x-ray showing bibasilar pulmonary infiltrates, patient was treated with a combination of cefepime and clindamycin, IV steroids, nebulized bronchodilators. She clinically improved, and was discharged home on 05/26/2019, on oral Cefdinir, prednisone taper. Patient is daughter lives with her and provides significant amount of support care and for her mother. She stated after the discharge patient was feeling good, until she finished the prednisone. 2 days after she finished the prednisone she started having increased nasal congestion, yesterday morning she started complaining of increased shortness of breath, she felt like she could not get air in, her daughter increased her oxygen flow to 5 L/m. She was giving him nebulized treatments, she then developed low-grade fevers, did have some cough with production of yellow sputum, she denied any chest pain, denied any hemoptysis, denied any nausea or vomiting, she did have a couple episodes of diarrhea, self- limiting. Patient complained of severe exertional dyspnea and desaturation into the low 80s, and this was also noted by the EMS staff. Chest x-ray was completely showing bilateral infiltrates and interstitial lung disease with possibility of superimposed pneumonitis or venous congestion, and patchy infiltrate in the left upper lobe, which is new from last chest x-ray. Lab work showed white blood cell count of 8.9, hemoglobin of 8.7, platelet count of 123, sodium is 137, potassium is 5.3, chloride is 103, CO2 is 30, BUN is 25, creatinine is 1.15, plasma lactic acid is 0.6, proBNP is within normal limits at 563. Patient is having diaphoresis, and sweating, she was placed on BiPAP support in view of the significantly increased work of breathing. Patient has been started on combination of Azactam and Levaquin, she has ALLERGIES to penicillins, blood cultures and sputum cultures have been sent and are pending at this time. On 06/11/2019 patient seen in follow-up on care unit, she is breathing easier today, she is currently on 6 L of oxygen, down from 8 L. Denies any chest pain, no fever or chills, still remains hypertensive, today's follow-up chest x-ray redemonstrated interstitial pulmonary edema and pulmonary vascular congestion, fluid overload and the multifocal opacities could represent confluent edema or multifocal pneumonia. Patient has been started on IV antibiotics, Azactam and Levaquin, we will start the patient on IV Lasix, and order echocardiogram today. Legionella urine antigen has been ordered. We'll try to send a sputum culture. Blood cultures are pending. No hemoptysis. On 06/12/2019 patient seen in follow-up on selective care unit, she is awake and alert, distress, 6 L of oxygen with a pulse ox of 96%, febrile, hemodynamically stable, microbiology results have been reviewed, blood culture showed no growth. No complaints of chest pain, patient has been on IV diuretics for last 24 hours, at 40 mg every 8 hours, she is on IV steroids and antibiotics, echocardiogram has been reviewed, showing EF of 55-60%. On 06/13/2019 patient seen in follow-up on selective care unit, she is awake and alert, in no acute distress, she states her breathing continues to improve, she is currently on 5 L of oxygen with a pulse ox of 94%, she's been afebrile, she denies any worsening dyspnea, she has occasional cough with production of sputum, there has been no fever or chills, blood cultures have been negative. Patient continues to diurese, her weight is down by 3.3 kg in the last 24 hours, she is in negative fluid balance. No complex of chest pain. On 06/16/2019 patient seen in follow-up on medical surgical floor. She is awake and alert, she states her breathing is much improved, she is at her home dose O2 at 4 L and her pulse ox is 95-98%, she is afebrile, hemodynamically stable. Lung sounds reveal a few minimal rales at posterior bases, no significant rhonchi or wheezing. No acute events overnight. No complaints of chest pain, patient has been treated with a combination of diuretics and antibiotics. She is clinically improved, blood culture showed no growth. He is maintaining negative fluid balance, today's labs have been reviewed, CBC was done only, no BMP, white blood cell count is 16.3, hemoglobin is 9.8. Patient has been transitioned to oral Lasix, and oral Levaquin, she has been transitioned to oral prednisone as well. Objective - Vital Signs Vital signs: Vital Signs Temp 98.6 F 06/16/19 08:00 Pulse 100 06/16/19 10:35 Resp 16 06/16/19 08:16 BP 172/69 06/16/19 08:00 Pulse Ox 95 06/16/19 08:00 Intake & Output 06/15/19 06/16/19 06/16/19 18:59 06:59 18:59 Intake Total 443.542 81.100 13.883 Output Total 1100 800 Balance -656.458 81.100 -786.117 Weight 116.5 kg 116.5 kg Intake: Intake, IV Titration 83.542 81.100 13.883 Amount Insulin Regular 100 unit 83.542 81.100 13.883 In Sodium Chloride 0.9% 100 ml @ Titrate IV .Q0M [facility] Rx#:[id number] Oral 360 Output: Urine 1100 800 Other: Voiding Method Bedside Commode Bedside Commode Bedside Commode # Voids 3 # Bowel Movements 1 - Exam GENERAL EXAM: Alert, pleasant 68-year-old white female,4 L of oxygen, comfortable in no apparent distress. HEAD: Normocephalic/atraumatic. EYES: Normal reaction of pupils, equal size. Conjunctiva pink, sclera white. NOSE: Clear with pink turbinates. THROAT: No erythema or exudates. NECK: No masses, no JVD, no thyroid enlargement, no adenopathy. CHEST: No chest wall deformity. Symmetrical expansion. LUNGS: Equal air entry with scattered bibasilar crackles and diminished breath sounds at the bases CVS: Regular rate and rhythm, normal S1 and S2, no gallops, no murmurs, no rubs ABDOMEN: Soft, nontender. No hepatosplenomegaly, normal bowel sounds, no guarding or rigidity. EXTREMITIES: No clubbing, no edema, no cyanosis, 2+ pulses and upper and lower extremities. MUSCULOSKELETAL: Muscle strength and tone normal. SPINE: No scoliosis or deformity SKIN: No rashes CENTRAL NERVOUS SYSTEM: Alert and oriented -3. No focal deficits, tone is normal in all 4 extremities. PSYCHIATRIC: Alert and oriented -3. Appropriate affect. Intact judgment and insight. - Labs CBC & Chem 7: 06/16/19 05:59 06/15/19 06:29 Labs: Abnormal Lab Results - Last 24 Hours (Table) 06/15/19 06/15/19 06/15/19 Range/Units 14:11 16:33 18:27 WBC (3.8-10.6) k/uL Hgb (11.4-16.0) gm/dL Hct (34.0-46.0) % MCV (80.0-100.0) fL MCH (25.0-35.0) pg MCHC (31.0-37.0) g/dL RDW (11.5-15.5) % Neutrophils # (1.3-7.7) k/uL POC Glucose (mg/dL) 300 H 386 H 406 H (75-99) mg/dL 06/15/19 06/15/19 06/16/19 Range/Units 20:39 22:31 00:25 WBC (3.8-10.6) k/uL Hgb (11.4-16.0) gm/dL Hct (34.0-46.0) % MCV (80.0-100.0) fL MCH (25.0-35.0) pg MCHC (31.0-37.0) g/dL RDW (11.5-15.5) % Neutrophils # (1.3-7.7) k/uL POC Glucose (mg/dL) 133 H 254 H 270 H (75-99) mg/dL 06/16/19 06/16/19 06/16/19 Range/Units 02:45 04:20 05:32 WBC (3.8-10.6) k/uL Hgb (11.4-16.0) gm/dL Hct (34.0-46.0) % MCV (80.0-100.0) fL MCH (25.0-35.0) pg MCHC (31.0-37.0) g/dL RDW (11.5-15.5) % Neutrophils # (1.3-7.7) k/uL POC Glucose (mg/dL) 192 H 119 H 113 H (75-99) mg/dL 06/16/19 06/16/19 06/16/19 Range/Units 05:59 06:36 07:26 WBC 16.3 H (3.8-10.6) k/uL Hgb 9.8 L (11.4-16.0) gm/dL Hct 33.3 L (34.0-46.0) % MCV 76.4 L (80.0-100.0) fL MCH 22.6 L (25.0-35.0) pg MCHC 29.5 L (31.0-37.0) g/dL RDW 17.1 H (11.5-15.5) % Neutrophils # 13.1 H (1.3-7.7) k/uL POC Glucose (mg/dL) 131 H 135 H (75-99) mg/dL 06/16/19 06/16/19 Range/Units 09:36 12:08 WBC (3.8-10.6) k/uL Hgb (11.4-16.0) gm/dL Hct (34.0-46.0) % MCV (80.0-100.0) fL MCH (25.0-35.0) pg MCHC (31.0-37.0) g/dL RDW (11.5-15.5) % Neutrophils # (1.3-7.7) k/uL POC Glucose (mg/dL) 214 H 243 H (75-99) mg/dL Microbiology - Last 24 Hours (Table) 06/10/19 11:45 Blood Culture - Preliminary Blood No Growth after 120 hours Assessment and Plan Plan: Assessment: #1. Acute on chronic hypoxemic respiratory failure secondary to acute pneumonia involving the left lung and interstitial edema #2. Acute exacerbation of advanced chronic obstructive pulmonary disease related to the above #3. Recent hospitalization for acute community acquired pneumonia involving bilateral lower lobes, she was treated with clindamycin and cefepime and discharged home on oral Omnicef #4. History of stage III COPD, with the baseline FEV1 of 0.76 L or 35% of predicted with severe diffusion abnormality, she is on chronic home oxygen at 4 L #5. Morbid obesity with a BMI of 44.8 kg/m #6. Diabetes mellitus type 2 #7. Hypothyroidism #8. Impaired performance and functional status secondary to poor lung function and multiple other chronic comorbidities #9. Acute kidney injury related to cardiorenal syndrome, nephrology has been consulted #10. Steroid-induced hyperglycemia Plan: Patient is breathing easier, no fever or chills, negative cultures, clinically stable, she is down to her home dose O2, she is tolerating ambulation with a walker and assistance. From pulmonary perspective patient is stable for discharge home today with outpatient follow-up to Will in the office she can go home on oral antibiotics, diuretics and she can complete the prednisone taper, she can resume her Symbicort, Spiriva and nebulized treatments I performed a history & physical examination of the patient and discussed their management with my nurse practitioner, Amparo Crowder. I reviewed the nurse practitioner's note and agree with the documented findings and plan of care. Lung sounds are diminished, with a few rales. The findings and the impression was discussed with the patient. I attest to the documentation by the nurse practitioner. Time with Patient: Less than 30
[2019-06-16 13:54] LABS: Glucose,Whole Blood 275 mg/dL (75-99)
--- NOTE | 2019-06-17 15:44 | P.DS ---
Providers Date of admission: 06/10/19 11:09 Expected date of discharge: 06/16/19 Attending physician: Sathish Banks MD Consults: 06/10/19 11:09 Consult Physician Routine Consulting Provider: Juan Cunningham Consult Reason/Comments: multiFocal pneumonia, COPD Do you want consulting provider notified?: Yes 06/13/19 10:52 Consult Physician Routine Consulting Provider: Mynor Diaz Consult Reason/Comments: worsening renal injury Do you want consulting provider notified?: Yes Primary care physician: Rhianna Salas - Discharge Diagnosis(es) (1) COPD exacerbation Status: Acute (2) Multifocal pneumonia Status: Acute (3) Acute respiratory failure with hypoxia Status: Acute (4) Hypothyroid Status: Acute (5) Type 2 diabetes mellitus Status: Acute Hospital Course: 68-year-old female with a past medical history significant for stage III COPD, chronic hypoxic respiratory failure on 4 L home oxygen, type 2 diabetes, hypothyroid, hypertension, history of ARDS requiring intubation and mechanical ventilation. She presents to the emergency department with shortness of breath and increased oxygen requirements over the past few days. She was recently admitted for multifocal pneumonia and treated at that time with cefepime, IV steroids, clindamycin, inhaled bronchodilators; patient was discharged with steroid taper and Omnicef. She states she initially felt well but after she completed her steroids she began to experience increased secretions and shortness of breath. Yesterday she required 5 L oxygen and so presented to the emergency department. She also complains of low-grade fevers at home and chills with T-max of 99. She is a former smoker. In the ED she was tachypneic and hypoxic chest x-ray showed multifocal pneumonia with bilateral infiltrates and interstitial prominence WBC 8.9 BNP 550 pro calcitonin 0.5. Patient initially required BiPAP but was transitioned to high flow. She was started on aztreonam and Levaquin, as well as IV Solu-Medrol and inhaled steroids and DuoNeb's. 06/14/2019 Patient is seen and evaluated in room at bedside; does report improvement in work of breathing Lab review shows a white blood count of 9.0, hemoglobin 8.8, hematocrit 29.5, and platelet count of 182; sodium 139, potassium 5.5.1, BUN of 70 with creatinine of 1.78 Creatinine continues to creep up; patient has fair urine output nephrology is following; recommending to change Lasix to 40 mg twice a day and avoid nephrotoxins; patient is to receive IV iron supplement for 3 doses; first dose is being administered today; patient remains on IV steroids, DuoNeb nebulizer treatments and is active and Levaquin 06/15/2019, patient has no specific complaintsand wants to be discharged home. The patient is currently on 4 L about 2 by nasal cannula. She is moving around with help. No cough. No sputum production. No chest tightness. No wheezing. No other significant events otherwise over the past 24 hours pH she clearly states that she is back to her baseline. The patient has been diuresed well with IV Lasix. The patient was also covered with a combination of Levaquin and aztreonam as broad-spectrum antibiotic coverage. He is still complaining of prednisone burst taper and currently she is taking 30 mg prednisone as part of her taper. patient remains on IV iron supplementation for his second dose this morning; patient may be discharged in next 24 hours after third dose of iron supplement On 06/16, pt's work of breathing and o2 requirements had returned to baseline. she is discharged in stable condition and will complete an extended taper of 5 days at each level from 30 mg to 10 mg. She will follow up with PCP within 1 week of discharge. Discharge exam General: non toxic, no distress, appears at stated age Derm: warm, dry Head: atraumatic, normocephalic, symmetric Eyes: EOMI, no lid lag, anicteric sclera Mouth: no lip lesion, mucus membranes moist Cardiovascular: S1S2 reg, systolic murmur, positive posterior tibial pulse bilateral, Lungs: good air entry, rhonchi no rales, no accessory muscle use Abdominal: soft, nontender to palpation, no guarding, no appreciable organomeg christopher Ext: no gross muscle atrophy, 1+ edema, no contractures Neuro: CN II-XI grossly intact, no focal neuro deficits Patient Condition at Discharge: Serious Plan - Discharge Summary Discharge Rx Participant: No New Discharge Prescriptions: New Furosemide [Lasix] 40 mg PO DAILY #30 tab Levofloxacin [Levaquin] 750 mg PO Q48H 8 Days #4 tab predniSONE 30 mg PO DAILY #30 tab Budesonide [Pulmicort] 1 mg INHALATION BID #60 ampul Continue glipiZIDE [Glucotrol] 10 mg PO AC-BID amLODIPine [Norvasc] 10 mg PO DAILY Pravastatin Sodium [Pravachol] 40 mg PO HS Tiotropium 18 Mcg/Puff [Spiriva] 1 puff INHALATION RT-DAILY Sertraline [Zoloft] 150 mg PO DAILY Albuterol Sulfate [Proair Hfa] 1 - 2 puff INHALATION RT-Q6H PRN PRN Reason: Shortness Of Breath Albuterol Nebulized [Ventolin Nebulized] 2.5 mg INHALATION RT-Q4H PRN PRN Reason: Shortness Of Breath Levothyroxine Sodium [Synthroid] 88 mcg PO DAILY Budesonide/Formoterol Fumarate [Symbicort 160-4.5 Mcg Inhaler] 2 puff INHALATION RT-BID Ipratropium-Albuterol Nebulize [Duoneb 0.5 mg-3 mg/3 ml Soln] 3 ml INHALATION QID ampul.neb Thyroid,Pork [Applications Development Consultant Thyroid] 30 mg PO DAILY Montelukast [Singulair] 10 mg PO HS Insulin Glargine [Lantus] 65 unit SQ HS #0 hydrALAZINE HCL 25 mg PO TID #90 tablet Fluticasone Nasal Lesage [Flonase Nasal Lesage] 2 spr EA NOSTRIL DAILY Discharge Medication List Albuterol Nebulized [Ventolin Nebulized] 2.5 mg INHALATION RT-Q4H PRN 05/22/19 [History] Albuterol Sulfate [Proair Hfa] 1 - 2 puff INHALATION RT-Q6H PRN 05/22/19 [History] Budesonide/Formoterol Fumarate [Symbicort 160-4.5 Mcg Inhaler] 2 puff INHALATION RT-BID 05/22/19 [History] Ipratropium-Albuterol Nebulize [Duoneb 0.5 mg-3 mg/3 ml Soln] 3 ml INHALATION QID ampul.neb 05/22/19 [Rx] Levothyroxine Sodium [Synthroid] 88 mcg PO DAILY 05/22/19 [History] Montelukast [Singulair] 10 mg PO HS 05/22/19 [History] Pravastatin Sodium [Pravachol] 40 mg PO HS 05/22/19 [History] Sertraline [Zoloft] 150 mg PO DAILY 05/22/19 [History] Thyroid,Pork [Applications Development Consultant Thyroid] 30 mg PO DAILY 05/22/19 [History] Tiotropium 18 Mcg/Puff [Spiriva] 1 puff INHALATION RT-DAILY 05/22/19 [History] amLODIPine [Norvasc] 10 mg PO DAILY 05/22/19 [History] glipiZIDE [Glucotrol] 10 mg PO AC-BID 05/22/19 [History] Insulin Glargine [Lantus] 65 unit SQ HS #0 05/26/19 [Rx] hydrALAZINE HCL 25 mg PO TID #90 tablet 05/26/19 [Rx] Fluticasone Nasal Lesage [Flonase Nasal Lesage] 2 spr EA NOSTRIL DAILY 06/10/19 [History] Budesonide [Pulmicort] 1 mg INHALATION BID #60 ampul 06/16/19 [Rx] Furosemide [Lasix] 40 mg PO DAILY #30 tab 06/16/19 [Rx] Levofloxacin [Levaquin] 750 mg PO Q48H 8 Days #4 tab 06/16/19 [Rx] predniSONE 30 mg PO DAILY #30 tab 06/16/19 [Rx] Follow up Appointment(s)/Referral(s): Jon Portillo MD [STAFF PHYSICIAN] - 06/17/19 10:15 am (With Octavio) Mynor Diaz DO [STAFF PHYSICIAN] - 08/05/19 1:20 pm Rhianna Salas DO [Primary Care Provider] - 06/19/19 1:15 pm (With Clementina) [facility] Visiting Nurse, [NON-STAFF] - (Patient already set up with [facility].) Discharge Disposition: HOME WITH HOME HEALTH SERVICES
== END 2019-06-16 14:46 | disposition home health service (06) | DRG 291 ==
LOC: EC 08:49 → 3NMEDONC 11:09 → 3SCARD 11:27 → 4SSUR 06-16 06:38
PROVIDERS: ADMIT Family Medicine; ATTEND Family Medicine
PROC: 5A09357 Assistance with Respiratory Ventilation, Less than 24 Consecutive Hours, Continuous Positive Airway Pressure (ICD-10-PCS; principal; 2019-06-10)
DX: I13.0 Hypertensive heart and chronic kidney disease with heart failure and stage 1 through stage 4 chronic kidney disease, or unspecified chronic kidney disease (principal); I50.33 Acute on chronic diastolic (congestive) heart failure; J18.9 Pneumonia, unspecified organism; J96.21 Acute and chronic respiratory failure with hypoxia; J44.0 Chronic obstructive pulmonary disease with (acute) lower respiratory infection; J44.1 Chronic obstructive pulmonary disease with (acute) exacerbation; N17.9 Acute kidney failure, unspecified; Z68.41 Body mass index [BMI] 40.0-44.9, adult; Z87.891 Personal history of nicotine dependence; E03.9 Hypothyroidism, unspecified; E11.22 Type 2 diabetes mellitus with diabetic chronic kidney disease; E11.65 Type 2 diabetes mellitus with hyperglycemia; D50.9 Iron deficiency anemia, unspecified; E66.01 Morbid (severe) obesity due to excess calories; N18.9 Chronic kidney disease, unspecified; T38.0X5A Adverse effect of glucocorticoids and synthetic analogues, initial encounter; Z79.4 Long term (current) use of insulin; Z79.51 Long term (current) use of inhaled steroids; Z79.890 Hormone replacement therapy; Z79.899 Other long term (current) drug therapy; Z82.0 Family history of epilepsy and other diseases of the nervous system; Z82.49 Family history of ischemic heart disease and other diseases of the circulatory system; Z83.3 Family history of diabetes mellitus; Z87.01 Personal history of pneumonia (recurrent); Z90.710 Acquired absence of both cervix and uterus; Z99.81 Dependence on supplemental oxygen; Z88.0 Allergy status to penicillin; Z88.8 Allergy status to other drugs, medicaments and biological substances
CPT/HCPCS: 36415; 71045; 71046; 76770; 80048; 80053; 81003; 82728; 83540; 83550; 83605; 83735; 83880; 84145; 85025; 87040; 87449; 87502; 93306; 94640; 94660; 94760; 96365; 96366; 99291

== ENCOUNTER 2019-08-12 11:07 | Emergency (ER) | payer MEDICARE ==
[2019-08-12 11:22] VITALS: TEMP 97.8
[2019-08-12] MEDS ORDERED: IPRATROPIUM-ALBUTEROL 3 ML NEB INHALATION STA (11:42)
--- NOTE | 2019-08-12 11:51 | ED ---
SOB HPI - General Chief Complaint: Shortness of Breath Stated Complaint: SOB, cough Time Seen by Provider: 08/12/19 11:17 Source: patient, family, RN notes reviewed Mode of arrival: wheelchair Limitations: no limitations - History of Present Illness Initial Comments: 68-year-old female presents emergency Department chief complaint of dyspnea. 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 Patient states that she noticed some wheezing increased shortness breath normally is on 4 L of oxygen at home. Patient states that she has a productive cough with sputum that is yellow and greenish in nature. She reports no chest pain she has complains of pain in her right upper chest more in the back. Patient denies any abdominal pain currently nausea vomiting. - Related Data Home Medications Medication Instructions Recorded Confirmed Albuterol Nebulized [Ventolin 2.5 mg INHALATION RT-Q4H PRN 05/22/19 06/10/19 Nebulized] Albuterol Sulfate [Proair Hfa] 1 - 2 puff INHALATION RT-Q6H PRN 05/22/19 06/10/19 Budesonide/Formoterol Fumarate 2 puff INHALATION RT-BID 05/22/19 06/10/19 [Symbicort 160-4.5 Mcg Inhaler] Levothyroxine Sodium [Synthroid] 88 mcg PO DAILY 05/22/19 06/10/19 Montelukast [Singulair] 10 mg PO HS 05/22/19 06/10/19 Pravastatin Sodium [Pravachol] 40 mg PO HS 05/22/19 06/10/19 Sertraline [Zoloft] 150 mg PO DAILY 05/22/19 06/10/19 Thyroid,Pork [Transmission Maintenance Supervisor Thyroid] 30 mg PO DAILY 05/22/19 06/10/19 Tiotropium 18 Mcg/Puff [Spiriva] 1 puff INHALATION RT-DAILY 05/22/19 06/10/19 amLODIPine [Norvasc] 10 mg PO DAILY 05/22/19 06/10/19 glipiZIDE [Glucotrol] 10 mg PO AC-BID 05/22/19 06/10/19 Fluticasone Nasal [place] [Flonase 2 spr EA NOSTRIL DAILY 06/10/19 06/10/19 Nasal [place]] Previous Rx's Medication Instructions Recorded Ipratropium-Albuterol Nebulize 3 ml INHALATION QID ampul.neb 05/22/19 [Duoneb 0.5 mg-3 mg/3 ml Soln] Insulin Glargine [Lantus] 65 unit SQ HS #0 05/26/19 hydrALAZINE HCL 25 mg PO TID #90 tablet 05/26/19 Budesonide [Pulmicort] 1 mg INHALATION BID #60 ampul 06/16/19 Furosemide [Lasix] 40 mg PO DAILY #30 tab 06/16/19 Levofloxacin [Levaquin] 750 mg PO Q48H 8 Days #4 tab 06/16/19 predniSONE 30 mg PO DAILY #30 tab 06/16/19 Azithromycin [Zithromax Z-pack] 0 mg PO DIRECTED #1 pack 08/12/19 predniSONE 50 mg PO DAILY #4 tab 08/12/19 Allergies Allergy/AdvReac Type Severity Reaction Status Date / Time Penicillins Allergy Anaphylaxis Verified 08/12/19 11:20 zolpidem [From Ambien] AdvReac Confusion Verified 08/12/19 11:20 Review of Systems ROS Statement: Those systems with pertinent positive or pertinent negative responses have been documented in the HPI. ROS Other: All systems not noted in ROS Statement are negative. Past Medical History Past Medical History: COPD, Diabetes Mellitus, Hypertension Additional Past Medical History / Comment(s): ARDS secondary to pneumonia more than 10 years ago requiring tracheostomy tube insertion, COPD with established FEV1 of 41% of predicted, diabetes mellitus, hypertension, history of morbid obesity History of Any Multi-Drug Resistant Organisms: None Reported Past Surgical History: Cholecystectomy, Hysterectomy Past Anesthesia/Blood Transfusion Reactions: No Reported Reaction Past Psychological History: No Psychological Hx Reported Smoking Status: Former smoker Past Alcohol Use History: None Reported Past Drug Use History: None Reported - Past Family History Mother Family Medical History: Congestive Heart Failure (CHF), Diabetes Mellitus Additional Family Medical History / Comment(s): The patient's mother had congestion heart failure and diabetes mellitus in the father had Parkinson's disease. General Exam Limitations: no limitations General appearance: alert, in no apparent distress Head exam: Present: atraumatic, normocephalic, normal inspection Eye exam: Present: normal appearance, PERRL, EOMI. Absent: scleral icterus, conjunctival injection, periorbital swelling ENT exam: Present: normal exam, normal oropharynx, mucous membranes moist Neck exam: Present: normal inspection, full ROM. Absent: tenderness, meningismus, lymphadenopathy Respiratory exam: Present: wheezes (Right upper). Absent: normal lung sounds bilaterally, respiratory distress (mild), rales, rhonchi, stridor Cardiovascular Exam: Present: regular rate, normal rhythm, normal heart sounds. Absent: systolic murmur, diastolic murmur, rubs, gallop, clicks Neurological exam: Present: alert, oriented X3 Skin exam: Present: warm, dry, intact, normal color. Absent: rash Course Vital Signs 08/12/19 08/12/19 08/12/19 11:20 12:03 12:17 Temperature 97.8 F Pulse Rate 82 90 79 Respiratory 30 H 18 18 Rate Blood Pressure 192/81 O2 Sat by Pulse 94 L Oximetry Medical Decision Making - Medical Decision Making Patient is x-ray shows chronic changes no new focal areas of pneumonia. Patient is improved after DuoNeb treatment. Patient's labwork unrealized remarkable from baseline. I did discuss findings they feel comfortable discharged with antibiotics follow-up with Dr. Cunningham and steroids. We did discuss blood sugar control secondary to prednisone. - Lab Data Result diagrams: 08/12/19 12:03 08/12/19 12:03 Lab Results 08/12/19 08/12/19 08/12/19 Range/Units 12:03 12:03 12:03 WBC 7.4 (3.8-10.6) k/uL RBC 4.16 (3.80-5.40) m/uL Hgb 9.8 L (11.4-16.0) gm/dL Hct 31.5 L (34.0-46.0) % MCV 75.8 L (80.0-100.0) fL MCH 23.5 L (25.0-35.0) pg MCHC 31.0 (31.0-37.0) g/dL RDW 16.0 H (11.5-15.5) % Plt Count 150 (150-450) k/uL Neutrophils % 82 % Lymphocytes % 9 % Monocytes % 6 % Eosinophils % 1 % Basophils % 0 % Neutrophils # 6.1 (1.3-7.7) k/uL Lymphocytes # 0.7 L (1.0-4.8) k/uL Monocytes # 0.5 (0-1.0) k/uL Eosinophils # 0.1 (0-0.7) k/uL Basophils # 0.0 (0-0.2) k/uL Hypochromasia Marked Poikilocytosis Slight Microcytosis Slight PT (9.0-12.0) sec INR (<1.2) APTT (22.0-30.0) sec Sodium 139 (137-145) mmol/L Potassium 5.0 (3.5-5.1) mmol/L Chloride 102 (98-107) mmol/L Carbon Dioxide 28 (22-30) mmol/L Anion Gap 9 mmol/L BUN 35 H (7-17) mg/dL Creatinine 1.20 H (0.52-1.04) mg/dL Est GFR (CKD-EPI)AfAm 54 (>60 ml/min/1.73 sqM) Est GFR (CKD-EPI)NonAf 47 (>60 ml/min/1.73 sqM) Glucose 263 H (74-99) mg/dL Calcium 9.7 (8.4-10.2) mg/dL Magnesium 1.8 (1.6-2.3) mg/dL Total Bilirubin 0.5 (0.2-1.3) mg/dL AST 21 (14-36) U/L ALT 30 (9-52) U/L Alkaline Phosphatase 93 (38-126) U/L Troponin I (0.000-0.034) ng/mL NT-Pro-B Natriuret Pep 967 pg/mL Total Protein 6.3 (6.3-8.2) g/dL Albumin 3.9 (3.5-5.0) g/dL 08/12/19 08/12/19 Range/Units 12:03 12:03 WBC (3.8-10.6) k/uL RBC (3.80-5.40) m/uL Hgb (11.4-16.0) gm/dL Hct (34.0-46.0) % MCV (80.0-100.0) fL MCH (25.0-35.0) pg MCHC (31.0-37.0) g/dL RDW (11.5-15.5) % Plt Count (150-450) k/uL Neutrophils % % Lymphocytes % % Monocytes % % Eosinophils % % Basophils % % Neutrophils # (1.3-7.7) k/uL Lymphocytes # (1.0-4.8) k/uL Monocytes # (0-1.0) k/uL Eosinophils # (0-0.7) k/uL Basophils # (0-0.2) k/uL Hypochromasia Poikilocytosis Microcytosis PT 9.8 (9.0-12.0) sec INR 0.9 (<1.2) APTT 26.2 (22.0-30.0) sec Sodium (137-145) mmol/L Potassium (3.5-5.1) mmol/L Chloride (98-107) mmol/L Carbon Dioxide (22-30) mmol/L Anion Gap mmol/L BUN (7-17) mg/dL Creatinine (0.52-1.04) mg/dL Est GFR (CKD-EPI)AfAm (>60 ml/min/1.73 sqM) Est GFR (CKD-EPI)NonAf (>60 ml/min/1.73 sqM) Glucose (74-99) mg/dL Calcium (8.4-10.2) mg/dL Magnesium (1.6-2.3) mg/dL Total Bilirubin (0.2-1.3) mg/dL AST (14-36) U/L ALT (9-52) U/L Alkaline Phosphatase (38-126) U/L Troponin I <0.012 (0.000-0.034) ng/mL NT-Pro-B Natriuret Pep pg/mL Total Protein (6.3-8.2) g/dL Albumin (3.5-5.0) g/dL - EKG Data EKG Comments: EKG performed at 12:10 with sinus rhythm rate of 74. 138 QRS 82 QT status QTC 362/401 Disposition Clinical Impression: COPD exacerbation Disposition: HOME SELF-CARE Condition: Stable Instructions (If sedation given, give patient instructions): Acute Bronchitis (ED) Additional Instructions: Please return to the Emergency Department if symptoms worsen or any other concerns. Prescriptions: predniSONE 50 mg PO DAILY #4 tab Azithromycin [Zithromax Z-pack] 0 mg PO DIRECTED #1 pack Is patient prescribed a controlled substance at d/c from ED?: No Referrals: Josue,Rhianna, DO [Primary Care Provider] - 1-2 days Time of Disposition: 13:00
[2019-08-12 12:22] LABS: Basophils % (A) 0 %; Eosinophils # (A) 0.1 k/uL (0-0.7); Eosinophils % (A) 1 %; HCT 31.5 % (34.0-46.0); HGB 9.8 gm/dL (11.4-16.0); Hypochromasia Marked; Lymphocytes # (A) 0.7 k/uL (1.0-4.8); Lymphocytes % (A) 9 %; MCH 23.5 pg (25.0-35.0); MCV 75.8 fL (80.0-100.0); Mean Platelet Volume 6.6; Microcytosis Slight; Monocytes # (A) 0.5 k/uL (0-1.0); Monocytes % (A) 6 %; Neutrophils # (A) 6.1 k/uL (1.3-7.7); Neutrophils % (A) 82 %; Platelet Count 150 k/uL (150-450); Poikilocytosis Slight; RBC 4.16 m/uL (3.80-5.40); WBC 7.4 k/uL (3.8-10.6)
[2019-08-12 12:31] LABS: Albumin 3.9 g/dL (3.5-5.0); Calcium 9.7 mg/dL (8.4-10.2); Magnesium 1.8 mg/dL (1.6-2.3); Total Bilirubin 0.5 mg/dL (0.2-1.3); Total Protein 6.3 g/dL (6.3-8.2)
[2019-08-12 12:38] LABS: INR 0.9 (<1.2); Partial Thromboplastin Time 26.2 sec (22.0-30.0); Prothrombin Time 9.8 sec (9.0-12.0)
--- NOTE | 2019-08-12 12:38 | XR ---
EXAMINATION TYPE: XR chest 2V DATE OF EXAM: 08/12/2019 COMPARISON: Chest x-ray June 12, 2019 HISTORY: History of COPD and hypertension with difficulty in breathing. TECHNIQUE: Frontal and lateral views of the chest are obtained. FINDINGS: There is chronic parenchymal changes bilaterally without suspicious new focal air space op acity or pneumothorax seen. Persistent small left pleural effusion or pleural thickening. The cardiac silhouette size is enlarged with atherosclerotic aorta. The osseous structures are intact. IMPRESSION: Cardiomegaly and chronic changes without new acute pulmonary process.
[2019-08-12] MEDS ORDERED: cefTRIAXone IN SWFI 1,000 MG/10 ML SYRINGE IVP STA (12:57)
[2019-08-12] MEDS ORDERED: methylPREDNISolone SOD SUCCI 125 MG/2 ML VIAL IV STA (12:58)
[2019-08-12 13:25] VITALS: BP 174/75; PULSE 89; RESP 20
== END 2019-08-12 13:38 | disposition home or self-care (01) ==
LOC: EC 11:07
DX: J44.1 Chronic obstructive pulmonary disease with (acute) exacerbation (principal); E11.9 Type 2 diabetes mellitus without complications; I10 Essential (primary) hypertension; Z87.891 Personal history of nicotine dependence; Z88.0 Allergy status to penicillin; Z88.8 Allergy status to other drugs, medicaments and biological substances; Z79.84 Long term (current) use of oral hypoglycemic drugs; Z79.51 Long term (current) use of inhaled steroids; Z79.890 Hormone replacement therapy; Z79.899 Other long term (current) drug therapy; Z87.01 Personal history of pneumonia (recurrent); Z99.81 Dependence on supplemental oxygen
CPT/HCPCS: 36415; 94640; 93005; 83880; 80053; 83735; 84484; 85025; 85610; 85730; 71046; 99285; 96374; 96375; J2930; J0696

== ENCOUNTER 2019-08-23 12:40 | Inpatient (IN) | payer MEDICARE ==
[2019-08-23] MEDS ORDERED: ALBUTEROL NEBULIZED 2.5 MG/3 ML INHALATION STA (12:58)
[2019-08-23] MEDS ORDERED: SODIUM CHLORIDE 0.9% 500 ML 500 ML IV STA (12:58)
[2019-08-23] MEDS ORDERED: methylPREDNISolone SOD SUCCI 125 MG/2 ML VIAL IV STA (12:58)
[2019-08-23] MEDS ORDERED: IPRATROPIUM 0.5 MG/2.5 ML NEBU INHALATION STA (12:58)
[2019-08-23] MEDS ORDERED: hydrALAZINE HCL 20 MG/ML 1 ML VIAL IVP STA (12:59)
--- NOTE | 2019-08-23 13:04 | ED ---
General Adult HPI - General Chief complaint: Shortness of Breath Stated complaint: FRANC Time Seen by Provider: 08/23/19 12:45 Source: EMS, RN notes reviewed, old records reviewed Mode of arrival: EMS - History of Present Illness Initial comments: This is a 68-year-old female with past medical history significant for COPD and high blood pressure. Patient comes in today stating that she hasn't been able to breathe for about 2 weeks. Patient states she's coughing quite a bit but not coughing up any sputum. Patient states she has been on antibiotics over the 2 weeks and steroids but it has not helped. Patient states she's on 5 L of fluid at home normally. Patient denies any chest pain or palpitations. Patient denies any fever chills per patient denies abdominal pain patient denies nausea vomiting diarrhea. Patient denies any leg swelling or calf tenderness. - Related Data Home Medications Medication Instructions Recorded Confirmed Albuterol Nebulized [Ventolin 2.5 mg INHALATION RT-Q4H PRN 05/22/19 06/10/19 Nebulized] Albuterol Sulfate [Proair Hfa] 1 - 2 puff INHALATION RT-Q6H PRN 05/22/19 06/10/19 Budesonide/Formoterol Fumarate 2 puff INHALATION RT-BID 05/22/19 06/10/19 [Symbicort 160-4.5 Mcg Inhaler] Levothyroxine Sodium [Synthroid] 88 mcg PO DAILY 05/22/19 06/10/19 Montelukast [Singulair] 10 mg PO HS 05/22/19 06/10/19 Pravastatin Sodium [Pravachol] 40 mg PO HS 05/22/19 06/10/19 Sertraline [Zoloft] 150 mg PO DAILY 05/22/19 06/10/19 Thyroid,Pork [Customer Support Technician Thyroid] 30 mg PO DAILY 05/22/19 06/10/19 Tiotropium 18 Mcg/Puff [Spiriva] 1 puff INHALATION RT-DAILY 05/22/19 06/10/19 amLODIPine [Norvasc] 10 mg PO DAILY 05/22/19 06/10/19 glipiZIDE [Glucotrol] 10 mg PO AC-BID 05/22/19 06/10/19 Fluticasone Nasal [place] [Flonase 2 spr EA NOSTRIL DAILY 06/10/19 06/10/19 Nasal [place]] Previous Rx's Medication Instructions Recorded Ipratropium-Albuterol Nebulize 3 ml INHALATION QID ampul.neb 05/22/19 [Duoneb 0.5 mg-3 mg/3 ml Soln] Insulin Glargine [Lantus] 65 unit SQ HS #0 05/26/19 hydrALAZINE HCL 25 mg PO TID #90 tablet 05/26/19 Budesonide [Pulmicort] 1 mg INHALATION BID #60 ampul 06/16/19 Furosemide [Lasix] 40 mg PO DAILY #30 tab 06/16/19 Levofloxacin [Levaquin] 750 mg PO Q48H 8 Days #4 tab 06/16/19 predniSONE 30 mg PO DAILY #30 tab 06/16/19 Azithromycin [Zithromax Z-pack] 0 mg PO DIRECTED #1 pack 08/12/19 predniSONE 50 mg PO DAILY #4 tab 08/12/19 Allergies Allergy/AdvReac Type Severity Reaction Status Date / Time Penicillins Allergy Anaphylaxis Verified 08/12/19 11:20 zolpidem [From Ambien] AdvReac Confusion Verified 08/12/19 11:20 Review of Systems ROS Statement: Those systems with pertinent positive or pertinent negative responses have been documented in the HPI. ROS Other: All systems not noted in ROS Statement are negative. Past Medical History Past Medical History: COPD, Diabetes Mellitus, Hypertension Additional Past Medical History / Comment(s): ARDS secondary to pneumonia more than 10 years ago requiring tracheostomy tube insertion, COPD with established FEV1 of 41% of predicted, diabetes mellitus, hypertension, history of morbid obesity History of Any Multi-Drug Resistant Organisms: None Reported Past Surgical History: Cholecystectomy, Hysterectomy Past Anesthesia/Blood Transfusion Reactions: No Reported Reaction Past Psychological History: No Psychological Hx Reported Smoking Status: Former smoker Past Alcohol Use History: None Reported Past Drug Use History: None Reported - Past Family History Mother Family Medical History: Congestive Heart Failure (CHF), Diabetes Mellitus Additional Family Medical History / Comment(s): The patient's mother had congestion heart failure and diabetes mellitus in the father had Parkinson's disease. General Exam - General Exam Comments Initial Comments: GENERAL: Patient is well-developed and well-nourished. Patient is nontoxic and well- hydrated and is in mild distress. ENT: Neck is soft and supple. No significant lymphadenopathy is noted. Oropharynx is clear. Moist mucous membranes. Neck has full range of motion without eliciting any pain. EYES: The sclera were anicteric and conjunctiva were pink and moist. Extraocular movements were intact and pupils were equal round and reactive to light. Eyelids were unremarkable. PULMONARY: Significantly diminished breath sounds diffusely CARDIOVASCULAR: There is a regular rate and rhythm without any murmurs gallops or rubs. ABDOMEN: Soft and nontender with normal bowel sounds. No palpable organomegaly was noted. There is no palpable pulsatile mass. SKIN: Skin is clear with no lesions or rashes and otherwise unremarkable. NEUROLOGIC: Patient is alert and oriented x3. Cranial nerves II through XII are grossly intact. Motor and sensory are also intact. Normal speech, volume and content. Symmetrical smile. MUSCULOSKELETAL: Normal extremities with adequate strength and full range of motion. No lower extremity swelling or edema. No calf tenderness. LYMPHATICS: No significant lymphadenopathy is noted PSYCHIATRIC: Normal psychiatric evaluation. Course Vital Signs 08/23/19 08/23/19 08/23/19 12:43 12:48 13:06 Temperature 98.1 F Pulse Rate 102 H 98 Respiratory 22 22 Rate Blood Pressure 178/82 O2 Sat by Pulse 96 Oximetry 08/23/19 08/23/19 13:15 16:03 Temperature Pulse Rate 99 104 H Respiratory 20 16 Rate Blood Pressure 176/96 184/86 O2 Sat by Pulse 97 95 Oximetry Medical Decision Making - Medical Decision Making EKG shows sinus rhythm at 100 bpm LA interval 144 QRS is 88 QT interval 310 QTC is 399. Patient's EKG shows no ST segment elevation or depression. Chest x-ray shows possible pneumonia. Patient is feeling a little better after the breathing treatments steroids but still has a very wheezing. - Lab Data Result diagrams: 08/23/19 13:02 08/23/19 13:02 Lab Results 08/23/19 08/23/19 08/23/19 Range/Units 12:58 13:02 13:02 WBC 7.3 (3.8-10.6) k/uL RBC 4.73 (3.80-5.40) m/uL Hgb 10.7 L (11.4-16.0) gm/dL Hct 36.0 (34.0-46.0) % MCV 76.2 L (80.0-100.0) fL MCH 22.6 L (25.0-35.0) pg MCHC 29.7 L (31.0-37.0) g/dL RDW 16.8 H (11.5-15.5) % Plt Count 125 L (150-450) k/uL Neutrophils % 90 % Lymphocytes % 3 % Monocytes % 5 % Eosinophils % 0 % Basophils % 2 % Neutrophils # 6.6 (1.3-7.7) k/uL Lymphocytes # 0.2 L (1.0-4.8) k/uL Monocytes # 0.3 (0-1.0) k/uL Eosinophils # 0.0 (0-0.7) k/uL Basophils # 0.2 (0-0.2) k/uL Hypochromasia Marked Anisocytosis Slight Microcytosis Slight PT (9.0-12.0) sec INR (<1.2) APTT (22.0-30.0) sec Sodium 139 (137-145) mmol/L Potassium 4.8 (3.5-5.1) mmol/L Chloride 101 (98-107) mmol/L Carbon Dioxide 32 H (22-30) mmol/L Anion Gap 6 mmol/L BUN 34 H (7-17) mg/dL Creatinine 1.20 H (0.52-1.04) mg/dL Est GFR (CKD-EPI)AfAm 54 (>60 ml/min/1.73 sqM) Est GFR (CKD-EPI)NonAf 47 (>60 ml/min/1.73 sqM) Glucose 204 H (74-99) mg/dL Plasma Lactic Acid Uday 0.7 (0.7-2.0) mmol/L Calcium 9.3 (8.4-10.2) mg/dL Magnesium 1.8 (1.6-2.3) mg/dL Total Bilirubin 0.4 (0.2-1.3) mg/dL AST 23 (14-36) U/L ALT 41 (9-52) U/L Alkaline Phosphatase 105 (38-126) U/L Troponin I (0.000-0.034) ng/mL Total Protein 6.2 L (6.3-8.2) g/dL Albumin 3.7 (3.5-5.0) g/dL 08/23/19 08/23/19 Range/Units 13:02 13:02 WBC (3.8-10.6) k/uL RBC (3.80-5.40) m/uL Hgb (11.4-16.0) gm/dL Hct (34.0-46.0) % MCV (80.0-100.0) fL MCH (25.0-35.0) pg MCHC (31.0-37.0) g/dL RDW (11.5-15.5) % Plt Count (150-450) k/uL Neutrophils % % Lymphocytes % % Monocytes % % Eosinophils % % Basophils % % Neutrophils # (1.3-7.7) k/uL Lymphocytes # (1.0-4.8) k/uL Monocytes # (0-1.0) k/uL Eosinophils # (0-0.7) k/uL Basophils # (0-0.2) k/uL Hypochromasia Anisocytosis Microcytosis PT 10.0 (9.0-12.0) sec INR 0.9 (<1.2) APTT 26.0 (22.0-30.0) sec Sodium (137-145) mmol/L Potassium (3.5-5.1) mmol/L Chloride (98-107) mmol/L Carbon Dioxide (22-30) mmol/L Anion Gap mmol/L BUN (7-17) mg/dL Creatinine (0.52-1.04) mg/dL Est GFR (CKD-EPI)AfAm (>60 ml/min/1.73 sqM) Est GFR (CKD-EPI)NonAf (>60 ml/min/1.73 sqM) Glucose (74-99) mg/dL Plasma Lactic Acid Uday (0.7-2.0) mmol/L Calcium (8.4-10.2) mg/dL Magnesium (1.6-2.3) mg/dL Total Bilirubin (0.2-1.3) mg/dL AST (14-36) U/L ALT (9-52) U/L Alkaline Phosphatase (38-126) U/L Troponin I 0.022 (0.000-0.034) ng/mL Total Protein (6.3-8.2) g/dL Albumin (3.5-5.0) g/dL Disposition Clinical Impression: Pneumonia, COPD with acute exacerbation Disposition: ADMITTED IP TO THIS HOSP Referrals: Rhianna Salas DO [Primary Care Provider] - 1-2 days Time of Disposition: 16:24
[2019-08-23 13:24] LABS: Anisocytosis Slight; Basophils # (A) 0.2 k/uL (0-0.2); Basophils % (A) 2 %; Eosinophils % (A) 0 %; HGB 10.7 gm/dL (11.4-16.0); Hypochromasia Marked; Lymphocytes # (A) 0.2 k/uL (1.0-4.8); Lymphocytes % (A) 3 %; MCH 22.6 pg (25.0-35.0); MCHC 29.7 g/dL (31.0-37.0); MCV 76.2 fL (80.0-100.0); Mean Platelet Volume 7.3; Microcytosis Slight; Monocytes # (A) 0.3 k/uL (0-1.0); Monocytes % (A) 5 %; Neutrophils # (A) 6.6 k/uL (1.3-7.7); Neutrophils % (A) 90 %; Platelet Count 125 k/uL (150-450); RBC 4.73 m/uL (3.80-5.40); RDW 16.8 % (11.5-15.5); WBC 7.3 k/uL (3.8-10.6)
[2019-08-23 13:35] LABS: Albumin 3.7 g/dL (3.5-5.0); Calcium 9.3 mg/dL (8.4-10.2); Magnesium 1.8 mg/dL (1.6-2.3); Potassium 4.8 mmol/L (3.5-5.1); Total Bilirubin 0.4 mg/dL (0.2-1.3); Total Protein 6.2 g/dL (6.3-8.2)
[2019-08-23 13:46] LABS: INR 0.9 (<1.2)
--- NOTE | 2019-08-23 14:39 | XR ---
EXAMINATION TYPE: XR chest 2V DATE OF EXAM: 08/23/2019 COMPARISON: NONE HISTORY: Short of breath TECHNIQUE: Frontal and lateral views of the chest are obtained. FINDINGS: There is coarse interstitial density in the lungs. Heart appears slightly enlarged. There is no gross heart failure. There is no pleural effusion. Bony thorax is intact. IMPRESSION: Increased pulmonary interstitial density appears increased compared to last exam and cou ld relate to acute and chronic interstitial pneumonia. I do not suspect heart failure. No pleural flu id.
[2019-08-23] MEDS ORDERED: LEVOFLOXACIN 750MG-D5W PMX 750 MG in DEXTROSE/WATER 1 150ML.BAG IVPB STA (14:45)
[2019-08-23 17:11] LABS: Glucose,Whole Blood 323 mg/dL (75-99)
[2019-08-23] MEDS: IPRATROPIUM-ALBUTEROL 3 ML NEB INHALATION PRN ×2 (17:21→23:22)
[2019-08-23 18:08] VITALS: BMI 36.6
[2019-08-23] MEDS ORDERED: INSULIN ASPART (NovoLOG) 100 UNIT/ML VIAL SQ ONE ×2 (18:15→21:57)
[2019-08-23] MEDS: methylPREDNISolone SOD SUCCI 125 MG/2 ML VIAL IV SCH ×2 (18:21→23:22)
[2019-08-23] MEDS: hydrALAZINE HCL 25 MG TAB PO SCH ×2 (18:21→21:50)
--- NOTE | 2019-08-23 18:54 | P.HPIM ---
History of Present Illness H&P Date: 08/23/19 Chief Complaint: Shortness of breath for 7-10 days Mrs. Moran is a 68-year-old female with a past medical history of end-stage COPD, diabetes mellitus, hypertension, recurrent pneumonia, morbid obesity coming in with a chief complaint of difficulty in breathing for the past 7-10 days. Patient's has been having shortness of breath along with cough for the past 1 week. She has history of recurrent pneumonias. Chest x-ray done in the ED showing interstitial pneumonia. Patient follows with Dr. Cunningham and he has started her on steroids and Levaquin but patient did not have significant improvement and so came in for further evaluation. Patient denies having any fevers chills or rigors. No chest pain or palpitations. No abdominal pain nausea vomiting or diarrhea. No lower extremity edema. No orthopnea or PND. In the emergency patient had labs done that was within normal limits except for mildly elevated creatinine. Her blood sugars have been running high due to chronic steroid dependence. The chest x-ray showing increased infiltrates. Patient has been started on Solu-Medrol, breathing treatments and Levaquin and admitted for further management. Review of Systems REVIEW OF SYSTEMS: PSYCH: anxiety NEURO:No c/o weakness of the extremties, No facial droop, No speech abnormalities. VASCULAR: no edema HEMATOLOGIC: No history of easy bleeding and bruising . No recent infections . RESPIRATORY: As per HPI IMMUNE: No infections INTEGUMENT: no rashes OPHTHALMOLOGIC: No blurry vision and no eye discharge : No dysuria or hematuria DRIVER/MERCHANDISER: No bleeding PV CARDIAC: No chest pain or paroxysmal nocturnal dyspnea MUSCULOSKELETAL : No Aches or pains in the joints or muscles. GI: No abdominal pain, Nausea or vomiting. No constipation or diarrhea. All 13 ROS done and are as above Past Medical History Past Medical History: COPD, Diabetes Mellitus, Hypertension Additional Past Medical History / Comment(s): ARDS secondary to pneumonia more than 10 years ago requiring tracheostomy tube insertion, COPD with established FEV1 of 41% of predicted, diabetes mellitus, hypertension, history of morbid obesity History of Any Multi-Drug Resistant Organisms: None Reported Past Surgical History: Cholecystectomy, Hysterectomy Past Anesthesia/Blood Transfusion Reactions: No Reported Reaction Past Psychological History: Anxiety Smoking Status: Former smoker Past Alcohol Use History: None Reported Past Drug Use History: None Reported - Past Family History Mother Family Medical History: Congestive Heart Failure (CHF), Diabetes Mellitus Additional Family Medical History / Comment(s): The patient's mother had congestion heart failure and diabetes mellitus in the father had Parkinson's disease. Medications and Allergies Home Medications Medication Instructions Recorded Confirmed Type Albuterol Sulfate [Proair Hfa] 1 - 2 puff INHALATION RT-Q6H PRN 05/22/19 08/23/19 History Budesonide/Formoterol Fumarate 2 puff INHALATION RT-BID 05/22/19 08/23/19 Hi story [Symbicort 160-4.5 Mcg Inhaler] Levothyroxine Sodium [Synthroid] 88 mcg PO DAILY 05/22/19 08/23/19 History Montelukast [Singulair] 10 mg PO HS 05/22/19 08/23/19 History Pravastatin Sodium [Pravachol] 40 mg PO HS 05/22/19 08/23/19 History Sertraline [Zoloft] 150 mg PO HS 05/22/19 08/23/19 History Thyroid,Pork [Set Up [employer] Machine Thyroid] 30 mg PO DAILY 05/22/19 08/23/19 History Tiotropium 18 Mcg/Puff [Spiriva] 1 cap INHALATION RT-DAILY 05/22/19 08/23/19 History amLODIPine [Norvasc] 10 mg PO DAILY 05/22/19 08/23/19 History glipiZIDE [Glucotrol] 10 mg PO AC-BID 05/22/19 08/23/19 History hydrALAZINE HCL 25 mg PO TID #90 tablet 05/26/19 08/23/19 Rx Insulin Glargine [Lantus] 55 unit SQ HS 08/23/19 08/23/19 History Ipratropium-Albuterol Nebulize 3 ml INHALATION RT-QID 08/23/19 08/23/19 History [Duoneb 0.5 mg-3 mg/3 ml Soln] Allergies Allergy/AdvReac Type Severity Reaction Status Date / Time Penicillins Allergy Anaphylaxis Verified 08/23/19 16:51 zolpidem [From Ambien] AdvReac Confusion Verified 08/23/19 16:51 Physical Exam Vitals: Vital Signs Temp Pulse Pulse Resp BP BP Pulse Ox 08/23/19 17:34 102 H 08/23/19 17:21 102 H 92 L 08/23/19 16:54 76 16 161/76 95 08/23/19 16:49 98.5 F 106 H 22 165/73 92 L 08/23/19 16:03 104 H 16 184/86 95 08/23/19 13:15 99 20 176/96 97 08/23/19 13:06 98 08/23/19 12:48 22 08/23/19 12:43 98.1 F 102 H 22 178/82 96 Intake and Output 08/23/19 08/23/19 08/23/19 06:59 14:59 22:59 Other: Weight 116.573 kg GEN. APPEARANCE: alert, in no apparent distress HEAD EXAM: atraumatic, normocephalic, normal inspection EYE EXAM: normal appearance, PERRL, EOMI. Absent: scleral icterus, conjunctival injection, periorbital swelling ENT EXAM: normal exam, mucous membranes moist NECK EXAM: normal inspection. Absent: tenderness, meningismus, full ROM, lymphadenopathy RESPIRATORY EXAM: decreased BS in all lung doran. Bilateral wheezing. CARDIOVASCULAR EXAM: regular rate, normal rhythm, normal heart sounds. GI/ABDOMINAL EXAM: soft, normal bowel sounds. Absent: distended, tenderness, guarding, rebound, rigid EXTREMITIES EXAM: Mild edema NEUROLOGICAL EXAM: alert, oriented X3, No focal deficits PSYCHIATRIC EXAM: normal affect, normal mood SKIN EXAM: warm, dry, intact, normal color. Absent: rash Results CBC & Chem 7: 08/23/19 13:02 08/23/19 13:02 Labs: Abnormal Lab Results - Last 24 Hours (Table) 08/23/19 08/23/19 08/23/19 Range/Units 13:02 13:02 17:08 Hgb 10.7 L (11.4-16.0) gm/dL MCV 76.2 L (80.0-100.0) fL MCH 22.6 L (25.0-35.0) pg MCHC 29.7 L (31.0-37.0) g/dL RDW 16.8 H (11.5-15.5) % Plt Count 125 L (150-450) k/uL Lymphocytes # 0.2 L (1.0-4.8) k/uL Carbon Dioxide 32 H (22-30) mmol/L BUN 34 H (7-17) mg/dL Creatinine 1.20 H (0.52-1.04) mg/dL Glucose 204 H (74-99) mg/dL POC Glucose (mg/dL) 323 H (75-99) mg/dL Total Protein 6.2 L (6.3-8.2) g/dL Thrombosis Risk Factor Assmnt - Choose All That Apply Each Factor Represents 1 point: Abnormal pulmonary function (COPD), Obesity (BMI >25), Serious lung disease incl. pneumonia (< 1month) Each Risk Factor Represents 2 Points: Age 61-74 years Thrombosis Risk Factor Assessment Total Risk Factor Score: 5 Thrombosis Risk Factor Assessment Level: High Risk Assessment and Plan Assessment: ASSESSMENT Acute on chronic hypoxemic respiratory failure secondary to interstitial lung disease/pneumonitis End-stage COPD Recurrent hospital admissions for COPD exacerbation Obesity with BMI of 36.9 Type 2 diabetes mellitus with hyperglycemia Chronic steroid dependence Hypothyroidism Chronic debility Hypertension Anxiety disorder PLAN: Patient has been started on Solu-Medrol and levofloxacin for COPD exace rbation possibly secondary to pneumonia. Continue with breathing treatments. Patient has been restarted on all her home medications. Patient's blood sugars have been running high we will adjust the insulin doses. Further recommendations to follow depending on the progress of the patient. The tr eatment plan was discussed in detail with the patient and her daughter at bedside today.
[2019-08-23] MEDS ORDERED: SERTRALINE 100 MG TAB PO SCH ×2 (19:00→21:58)
[2019-08-23] MEDS ORDERED: THYROID, PORK 30 MG TAB PO SCH (19:00)
[2019-08-23 21:02] LABS: Glucose,Whole Blood 457 mg/dL (75-99)
[2019-08-23] MEDS: MONTELUKAST 10 MG TAB PO SCH (21:50)
[2019-08-23] MEDS: PRAVASTATIN SODIUM 40 MG TAB PO SCH (21:50)
[2019-08-23] MEDS: INSULIN DETEMIR (LEVEMIR) 100 UNIT/ML SYR SQ SCH (21:55)
[2019-08-23] MEDS: INSULIN ASPART (NovoLOG) 100 UNIT/ML VIAL SQ SCH (22:00)
[2019-08-23] MEDS: SERTRALINE 50 MG TAB PO SCH (22:30)
[2019-08-24] MEDS: IPRATROPIUM-ALBUTEROL 3 ML NEB INHALATION PRN ×2 (03:36→07:55)
[2019-08-24 05:54] LABS: Basophils % (A) 0 %; Eosinophils % (A) 0 %; HCT 34.2 % (34.0-46.0); HGB 10.1 gm/dL (11.4-16.0); Hypochromasia Marked; Lymphocytes # (A) 0.2 k/uL (1.0-4.8); Lymphocytes % (A) 5 %; MCH 23.2 pg (25.0-35.0); MCHC 29.4 g/dL (31.0-37.0); MCV 78.7 fL (80.0-100.0); Mean Platelet Volume 6.3; Microcytosis Slight; Monocytes # (A) 0.1 k/uL (0-1.0); Monocytes % (A) 3 %; Neutrophils # (A) 3.9 k/uL (1.3-7.7); Neutrophils % (A) 91 %; Platelet Count 100 k/uL (150-450); RBC 4.35 m/uL (3.80-5.40); RDW 15.8 % (11.5-15.5); WBC 4.2 k/uL (3.8-10.6)
[2019-08-24 06:08] LABS: Calcium 9.2 mg/dL (8.4-10.2); Potassium 5.2 mmol/L (3.5-5.1)
[2019-08-24 06:35] LABS: Glucose,Whole Blood 417 mg/dL (75-99)
[2019-08-24] MEDS: methylPREDNISolone SOD SUCCI 125 MG/2 ML VIAL IV SCH ×4 (07:12→23:12)
[2019-08-24] MEDS: INSULIN ASPART (NovoLOG) 100 UNIT/ML VIAL SQ SCH ×6 (07:13→21:38)
[2019-08-24] MEDS: LEVOTHYROXINE 88 MCG TAB PO SCH (07:13)
[2019-08-24] MEDS: THYROID, PORK 30 MG TAB PO SCH (07:13)
[2019-08-24] MEDS: hydrALAZINE HCL 25 MG TAB PO SCH ×3 (08:09→21:38)
[2019-08-24] MEDS: amLODIPine 10 MG TAB PO SCH (08:09)
[2019-08-24] MEDS ORDERED: SERTRALINE 100 MG TAB PO SCH (09:00)
[2019-08-24 09:25] LABS: T4, Free (Free Thyroxine) 1.45 ng/dL (0.78-2.19)
[2019-08-24] MEDS: IPRATROPIUM-ALBUTEROL 3 ML NEB INHALATION SCH ×3 (12:02→20:40)
[2019-08-24] MEDS ORDERED: hydrALAZINE HCL 25 MG TAB PO STA (12:08)
[2019-08-24 12:15] LABS: Glucose,Whole Blood 421 mg/dL (75-99)
--- NOTE | 2019-08-24 12:34 | P.PN ---
Subjective Progress Note Date: 08/24/19 Principal diagnosis: Acute COPD exacerbation Mrs. Moran is a 68-year-old female with a past medical history of end-stage COPD, diabetes mellitus, hypertension, recurrent pneumonia, morbid obesity coming in with a chief complaint of difficulty in breathing for the past 7-10 days. Patient's has been having shortness of breath along with cough for the past 1 week. She has history of recurrent pneumonias. Chest x-ray done in the ED showing interstitial pneumonia. Patient follows with Dr. Cunningham and he has started her on steroids and Levaquin but patient did not have significant improvement and so came in for further evaluation. Patient denies having any fevers chills or rigors. No chest pain or palpitations. No abdominal pain nausea vomiting or diarrhea. No lower extremity edema. No orthopnea or PND. In the emergency patient had labs done that was within normal limits except for mildly elevated creatinine. Her blood sugars have been running high due to chr onic steroid dependence. The chest x-ray showing increased infiltrates. Patient has been started on Solu-Medrol, breathing treatments and Levaquin and admitted for further management. On 08/24/2019 - patient is lying comfortably in the bed appears to be in no acute distress. No acute events reported by nursing staff overnight. Patient states her breathing is a little better compared to yesterday. She is still short of breath on walking from the bed to the bathroom. She's been getting breathing treatments that seem to be helping her. Patient's blood sugars have been running high, this happens to her when she is on steroids. Her blood pressure has been running marginally high. Patient also has left lower extremity swelling that is chronic in nature due to a crush injury in the past. And when she takes steroids the swelling appears to be increasing in size. She denies having any cough tenderness. She denies having any fevers chills or rigors. No abdominal pain nausea vomiting or diarrhea. No dysuria or hematuria. Active Medications Albuterol/Ipratropium (Duoneb 0.5 Mg-3 Mg/3 Ml Soln) 3 ml INHALATION RT-Q4H PRN PRN Reason: Shortness Of Breath Or Wheezing Last Admin: 08/24/19 07:55 Dose: 3 ml Documented by: Albuterol/Ipratropium (Duoneb 0.5 Mg-3 Mg/3 Ml Soln) 3 ml INHALATION RT-QID [facility] Last Admin: 08/24/19 12:02 Dose: 3 ml Documented by: Amlodipine Besylate (Norvasc) 10 mg PO DAILY [facility] Last Admin: 08/24/19 08:09 Dose: 10 mg Documented by: Hydralazine HCl (Apresoline) 25 mg PO TID [facility] Last Admin: 08/24/19 08:09 Dose: 25 mg Documented by: Levofloxacin 750 mg/ IV (Solution) 150 mls @ 100 mls/hr IVPB Q24H [facility] Insulin Aspart (Novolog) 0 unit SQ ACHS [facility]; Protocol Last Admin: 08/24/19 12:18 Dose: 8 unit Documented by: Insulin Aspart (Novolog) 15 unit SQ AC-TID [facility] Last Admin: 08/24/19 12:18 Dose: 15 unit Documented by: Insulin Detemir (Levemir) 55 unit SQ [facility] Last Admin: 08/23/19 21:55 Dose: 55 unit Documented by: Levothyroxine Sodium (Synthroid) 88 mcg PO 0630 [facility] Last Admin: 08/24/19 07:13 Dose: 88 mcg Documented by: Methylprednisolone Sodium Succinate (Solu-Medrol) 60 mg IV Q6HR [facility] Last Admin: 08/24/19 12:17 Dose: 60 mg Documented by: Montelukast Sodium (Singulair) 10 mg PO [facility] Last Admin: 08/23/19 21:50 Dose: 10 mg Documented by: Pravastatin Sodium (Pravachol) 40 mg PO [facility] Last Admin: 08/23/19 21:50 Dose: 40 mg Documented by: Sertraline HCl (Zoloft) 150 mg PO DAILY [facility] Last Admin: 08/23/19 22:30 Dose: 150 mg Documented by: Thyroid (Glady Thyroid) 30 mg PO 0630 [facility] Last Admin: 08/24/19 07:13 Dose: 30 mg Documented by: Objective - Vital Signs Vital signs: Vital Signs Temp 98 F 08/24/19 12:00 Pulse 96 08/24/19 12:24 Resp 20 08/24/19 12:00 BP 187/77 08/24/19 12:00 Pulse Ox 98 08/24/19 12:00 Intake & Output 08/23/19 08/24/19 08/24/19 18:59 06:59 18:59 Intake Total 360 Output Total 400 Balance -400 360 Weight 116.573 kg Intake: Oral 360 Output: Urine 400 Other: Voiding Method Bedside Commode Bedside Commode Bedside Commode # Voids 1 1 - Exam GEN. APPEARANCE: alert, in no apparent distress HEENT - no pallor. No icterus. Neck is short. RESPIRATORY EXAM: decreased BS in all lung doran. Bilateral wheezing less compared to yesterday. CARDIOVASCULAR EXAM: regular rate, normal rhythm, normal heart sounds. GI/ABDOMINAL EXAM: soft, normal bowel sounds. Absent: distended, tenderness, guarding, rebound, rigid EXTREMITIES EXAM: Pitting left lower extremity edema. Right lower extremity normal. NEUROLOGICAL EXAM: alert, oriented X3, No focal deficits PSYCHIATRIC EXAM: normal affect, normal mood SKIN EXAM: warm, dry, intact, normal color. Absent: rash - Labs CBC & Chem 7: 08/24/19 05:30 08/24/19 05:30 Labs: Abnormal Lab Results - Last 24 Hours (Table) 08/23/19 08/23/19 08/23/19 Range/Units 13:02 13:02 17:08 Hgb 10.7 L (11.4-16.0) gm/dL MCV 76.2 L (80.0-100.0) fL MCH 22.6 L (25.0-35.0) pg MCHC 29.7 L (31.0-37.0) g/dL RDW 16.8 H (11.5-15.5) % Plt Count 125 L (150-450) k/uL Lymphocytes # 0.2 L (1.0-4.8) k/uL Potassium (3.5-5.1) mmol/L Carbon Dioxide 32 H (22-30) mmol/L BUN 34 H (7-17) mg/dL Creatinine 1.20 H (0.52-1.04) mg/dL Glucose 204 H (74-99) mg/dL POC Glucose (mg/dL) 323 H (75-99) mg/dL Total Protein 6.2 L (6.3-8.2) g/dL TSH (0.465-4.680) mIU/L 08/23/19 08/24/19 08/24/19 Range/Units 21:01 05:30 05:30 Hgb 10.1 L (11.4-16.0) gm/dL MCV 78.7 L (80.0-100.0) fL MCH 23.2 L (25.0-35.0) pg MCHC 29.4 L (31.0-37.0) g/dL RDW 15.8 H (11.5-15.5) % Plt Count 100 L (150-450) k/uL Lymphocytes # 0.2 L (1.0-4.8) k/uL Potassium 5.2 H (3.5-5.1) mmol/L Carbon Dioxide (22-30) mmol/L BUN 43 H (7-17) mg/dL Creatinine 1.30 H (0.52-1.04) mg/dL Glucose 382 H (74-99) mg/dL POC Glucose (mg/dL) 457 H (75-99) mg/dL Total Protein (6.3-8.2) g/dL TSH 0.201 L (0.465-4.680) mIU/L 08/24/19 08/24/19 Range/Units 06:34 12:11 Hgb (11.4-16.0) gm/dL MCV (80.0-100.0) fL MCH (25.0-35.0) pg MCHC (31.0-37.0) g/dL RDW (11.5-15.5) % Plt Count (150-450) k/uL Lymphocytes # (1.0-4.8) k/uL Potassium (3.5-5.1) mmol/L Carbon Dioxide (22-30) mmol/L BUN (7-17) mg/dL Creatinine (0.52-1.04) mg/dL Glucose (74-99) mg/dL POC Glucose (mg/dL) 417 H 421 H (75-99) mg/dL Total Protein (6.3-8.2) g/dL TSH (0.465-4.680) mIU/L Assessment and Plan Assessment: ASSESSMENT Acute on chronic hypoxemic respiratory failure secondary to interstitial lung disease/pneumonitis End-stage COPD Recurrent hospital admissions for COPD exacerbation Obesity with BMI of 36.9 Type 2 diabetes mellitus with hyperglycemia Chronic steroid dependence Hypothyroidism Chronic debility Hypertension Anxiety disorder PLAN: Patient seems to be doing much better compared to yesterday in terms of her breathing. Continue with Solu-Medrol and levofloxacin for COPD exacerbation possibly secondary to pneumonia. Continue with breathing treatments. Patient's blood pressure has been running high, her dose of hydralazine has been increased today. Patient's blood sugars have been running high in spite of getting 58 units of the liver mass in the night. She has been requiring a lot of insulin for coverage of her blood sugars, so we'll put her on NovoLog 15 units 3 times a day before meals. Continue with the rest of her current medication regimen. Further recommendations to follow depending on the progress of the patient. The treatment plan was discussed in detail with the patient and her daughter at bedside today.
--- NOTE | 2019-08-24 12:39 | US ---
EXAMINATION TYPE: US venous doppler duplex LE LT DATE OF EXAM: 08/24/2019 12:31 PM COMPARISON: NONE CLINICAL HISTORY: edema . SIDE PERFORMED: Left TECHNIQUE: The lower extremity deep venous system is examined utilizing real time linear array sonog craig with graded compression, doppler sonography and color-flow sonography. VESSELS IMAGED: External Iliac Vein (EIV) Common Femoral Vein Deep Femoral Vein, not visualized Greater Saphenous Vein * not visualized Femoral Vein Popliteal Vein Small Saphenous Vein * Proximal Calf Veins (* superficial vessels) Morbidly obese patient with large panus unable to stand pressure in groin or upper leg limiting exam. Left Leg: Limited evaluation appears negative for DVT. Unable to do compression in upper leg due to patient pain. No popliteal fossa lesion is seen. IMPRESSION: THIS EXAMINATION IS SOMEWHAT LIMITED BUT APPEARS NEGATIVE FOR DVT WITHIN THE LEFT LEG.
[2019-08-24] MEDS: LEVOFLOXACIN 750MG-D5W PMX 750 MG in DEXTROSE/WATER 1 150ML.BAG IVPB SCH (15:25)
[2019-08-24 17:15] LABS: Glucose,Whole Blood 314 mg/dL (75-99)
[2019-08-24 20:39] LABS: Glucose,Whole Blood 246 mg/dL (75-99)
[2019-08-24] MEDS: INSULIN DETEMIR (LEVEMIR) 100 UNIT/ML SYR SQ SCH (21:38)
[2019-08-24] MEDS: PRAVASTATIN SODIUM 40 MG TAB PO SCH (21:38)
[2019-08-24] MEDS: MONTELUKAST 10 MG TAB PO SCH (21:38)
[2019-08-24] MEDS: SERTRALINE 50 MG TAB PO SCH ×2 (21:43→23:15)
[2019-08-25 06:31] LABS: Basophils % (A) 0 %; Eosinophils % (A) 0 %; HCT 34.1 % (34.0-46.0); HGB 10.2 gm/dL (11.4-16.0); Hypochromasia Marked; Lymphocytes # (A) 0.3 k/uL (1.0-4.8); Lymphocytes % (A) 4 %; MCH 23.1 pg (25.0-35.0); MCHC 29.8 g/dL (31.0-37.0); MCV 77.5 fL (80.0-100.0); Mean Platelet Volume 6.6; Microcytosis Slight; Monocytes # (A) 0.3 k/uL (0-1.0); Monocytes % (A) 4 %; Neutrophils # (A) 6.8 k/uL (1.3-7.7); Neutrophils % (A) 92 %; Platelet Count 134 k/uL (150-450); RDW 15.9 % (11.5-15.5); WBC 7.4 k/uL (3.8-10.6)
[2019-08-25 06:38] LABS: Calcium 9.5 mg/dL (8.4-10.2); Potassium 5.1 mmol/L (3.5-5.1)
[2019-08-25] MEDS: LEVOTHYROXINE 88 MCG TAB PO SCH (07:04)
[2019-08-25] MEDS: methylPREDNISolone SOD SUCCI 125 MG/2 ML VIAL IV SCH ×3 (07:05→17:12)
[2019-08-25] MEDS: THYROID, PORK 30 MG TAB PO SCH (07:07)
[2019-08-25 07:14] LABS: Glucose,Whole Blood 254 mg/dL (75-99)
[2019-08-25] MEDS: INSULIN ASPART (NovoLOG) 100 UNIT/ML VIAL SQ SCH ×7 (07:47→21:00)
[2019-08-25] MEDS: HEPARIN SODIUM,PORCINE 5,000 UNIT/ML 1 ML VIAL SQ SCH ×2 (10:04→21:00)
[2019-08-25] MEDS: amLODIPine 10 MG TAB PO SCH (10:04)
[2019-08-25] MEDS: hydrALAZINE HCL 25 MG TAB PO SCH ×3 (10:05→20:59)
[2019-08-25] MEDS: IPRATROPIUM-ALBUTEROL 3 ML NEB INHALATION SCH ×4 (10:12→19:31)
--- NOTE | 2019-08-25 11:36 | CONS ---
CONSULTATION PULMONARY/CRITICAL CARE CONSULTATION: DATE OF CONSULTATION: August 25, 2019 This is a 68-year-old female with a history of COPD and hypertension. She apparently presented to the emergency room on the with complaints of shortness of breath. The patient states that she had not been feeling well for a couple weeks prior to admission. She sees all of us in the office. Most recently, Dr. Cunningham. She states she has been on steroids and antibiotics that really has not helped her. The patient states that she had increasing shortness of breath, chest tightness, wheezing, cough and phlegm production. She denies any pain or pressure in the chest. She does have chest tightness. She denied any fever or chills. There is no nausea, vomiting, diarrhea, or any genitourinary complaints. The patient was seen in the emergency room and evaluated by the ER doctor and admitted by Dr. Jacinto for pneumonia and COPD exacerbation. HOME MEDICATIONS: Her home medications include albuterol nebulizer, ProAir HFA, Symbicort 160/4.5, Synthroid, Singulair, Pravachol, Zoloft, thyroid pork, Spiriva, amlodipine, Glucotrol, Flonase nasal spray, hydralazine, Lasix, Levaquin, prednisone, azithromycin. ALLERGIES: Allergies include PENICILLIN and AMBIEN. PAST MEDICAL HISTORY: Positive for COPD, diabetes, hypertension, ARDS some 13 years ago secondary to pneumonia, requiring long-term mechanical ventilation and placement of a tracheostomy tube, hypothyroidism and hyperlipidemia. She also has a history of obesity. SURGICAL HISTORY: Surgical history includes previous cholecystectomy, hysterectomy, and previous tracheostomy many years back. SOCIAL HISTORY: Positive for previous tobacco use. No history of alcohol use or illicit drug use. FAMILY HISTORY: Positive for mother who had congestive heart failure and diabetes. Father has a history of Parkinson's. REVIEW OF SYSTEMS: CONSTITUTIONAL: Negative. NEUROLOGIC: Negative. HEENT: Negative. CARDIOVASCULAR: Negative. PULMONARY: Shortness of breath, chest tightness, wheezing, cough, chest congestion and phlegm production. GI: Negative. : Negative. RHEUMATOLOGIC: Negative. IMMUNOLOGIC: Negative. ENDOCRINOLOGIC: Negative. DERMATOLOGIC: Negative. PHYSICAL EXAMINATION: VITAL SIGNS: Current vital signs are reviewed. Temperature is 98.7, heart rate is 90, respiratory rate 19, blood pressure 176/71, mean 106, and saturations are in the mid 90s on high flow nasal cannula at 8 L/minute. GENERAL: Appears in no acute distress and actually is feeling much better today than she did when she first came in. HEENT: Examination is grossly unremarkable. Mucous membranes are moist. No oral lesions. Nasal O2 noted. NECK: Supple. Full range of motion. No adenopathy, thyromegaly or neck vein distention. CARDIOVASCULAR: Examination reveals regular rhythm and rate. Heart rate 90 beats per minute. S1, S2 normal. Heart sounds are distant. No murmur. LUNGS: Reveal diffuse inspiratory and expiratory wheezes and rhonchi. There is prolongation on forced maneuver. The patient coughs and wheezes on forced maneuver. No crackles. Adventitious lung sounds are more prominent on forced maneuver. ABDOMEN: Obese. Bowel sounds are heard. EXTREMITIES: Are intact. No significant cyanosis, clubbing, or edema. SKIN: Without rash. NEUROLOGIC: Examination is brief but nonfocal. A venous Doppler study is negative for DVT in the left leg. A chest x-ray that was done on August 23 shows acute and chronic interstitial pneumonia. Her chest x-ray looks like atypical infection. Microbiology is thus far negative. LABS: Labs are reviewed. White count 7.4, hemoglobin 10.2, hematocrit 34.1, platelet count 134,000. Sodium 137, potassium 5.1, chloride 101, CO2 of 32. Anion gap 4. BUN and creatinine were 48 and 1.39. N terminal proBNP was 709. The rest of the labs are reviewed. TSH is 0.201. Troponin 0.022. MEDICATIONS: Medications are reviewed. She is on Solu-Medrol 60 mg q.6. She is on Levaquin 750 mg a day and she is on DuoNeb. ASSESSMENT: 1. Chronic obstructive pulmonary disease exacerbation, possibly complicated by interstitial/atypical pneumonia. 2. Prior history of ARDS, requiring long-term intubation and mechanical ventilation and subsequent tracheostomy. 3. Previous history of heavy tobacco use. 4. History of hypothyroidism. 5. History of hyperlipidemia. 6. History of hypertension. 7. History of diabetes mellitus. 8. Morbid obesity. PLAN: The patient's medications are reviewed. The steroids, breathing treatments and antibiotics are fine. I will add some Pulmicort and Perforomist to her regimen. Additional recommendations and suggestions are forthcoming. Overall, the patient appears to be doing a bit better. She feels certainly better today than she did yesterday. I have asked her to deep breathe, cough and clear secretions. We also would like her to provide a sputum sample for the laboratory. Finally, incentive spirometry would be beneficial. No additional recommendations are made. Prognosis is guarded. MMODL / IJN: [id number] /
[2019-08-25 12:34] LABS: Glucose,Whole Blood 196 mg/dL (75-99)
[2019-08-25] MEDS: LISINOPRIL 20 MG TAB PO SCH (13:35)
[2019-08-25] MEDS: LEVOFLOXACIN 750MG-D5W PMX 750 MG in DEXTROSE/WATER 1 150ML.BAG IVPB SCH (15:34)
[2019-08-25 16:49] LABS: Glucose,Whole Blood 379 mg/dL (75-99)
[2019-08-25] MEDS: FORMOTEROL FUMARATE 20 MCG/2 ML NEBU INHALATION SCH (19:31)
[2019-08-25] MEDS: BUDESONIDE 1 MG/2 ML NEBU INHALATION SCH (19:31)
[2019-08-25 20:44] LABS: Glucose,Whole Blood 323 mg/dL (75-99)
[2019-08-25] MEDS: MONTELUKAST 10 MG TAB PO SCH (20:59)
[2019-08-25] MEDS: SERTRALINE 50 MG TAB PO SCH (20:59)
[2019-08-25] MEDS ORDERED: INSULIN DETEMIR (LEVEMIR) 100 UNIT/ML SYR SQ SCH (21:00)
[2019-08-25] MEDS: PRAVASTATIN SODIUM 40 MG TAB PO SCH (21:00)
--- NOTE | 2019-08-25 22:54 | P.PN ---
Subjective Progress Note Date: 08/25/19 Mrs. Moran is a 68-year-old female with a past medical history of end-stage COPD, diabetes mellitus, hypertension, recurrent pneumonia, morbid obesity coming in with a chief complaint of difficulty in breathing for the past 7-10 days. Patient's has been having shortness of breath along with cough for the past 1 week. She has history of recurrent pneumonias. Chest x-ray done in the ED showing interstitial pneumonia. Patient follows with Dr. Cunningham and he has started her on steroids and Levaquin but patient did not have significant improvement and so came in for further evaluation. Patient denies having any fevers chills or rigors. No chest pain or palpitations. No abdominal pain nausea vomiting or diarrhea. No lower extremity edema. No orthopnea or PND. In the emergency patient had labs done that was within normal limits except for mildly elevated creatinine. Her blood sugars have been running high due to chronic steroid dependence. The chest x-ray showing increased infiltrates. Patient has been started on Solu-Medrol, breathing treatments and Levaquin and admitted for further management. On 08/24/2019 - patient is lying comfortably in the bed appears to be in no acute distress. No acute events reported by nursing staff overnight. Patient states her breathing is a little better compared to yesterday. She is still short of breath on walking from the bed to the bathroom. She's been getting breathing treatments that seem to be helping her. Patient's blood sugars have been running high, this happens to her when she is on steroids. Her blood pressure has been running marginally high. Patient also has left lower extremity swelling that is chronic in nature due to a crush injury in the past. And when she takes steroids the swelling appears to be increasing in size. She denies having any cough tenderness. She denies having any fevers chills or rigors. No abdominal pain nausea vomiting or diarrhea. No dysuria or hematuria. 08/25. She is resting in bed today, reports an improvement in her breathing but continues to complain of cough and dyspnea with exertion. Blood glucose is improved today. She continues to have uncontrolled hypertension today. Objective - Vital Signs Vital signs: Vital Signs Temp 97.9 F 08/25/19 21:00 Pulse 102 H 08/25/19 21:00 Resp 20 08/25/19 21:00 BP 166/63 08/25/19 21:00 Pulse Ox 93 L 08/25/19 21:00 Intake & Output 08/25/19 08/25/19 08/26/19 06:59 18:59 06:59 Intake Total 490 905 400 Output Total 200 Balance 290 905 400 Weight 115.3 kg Intake: IV 10 0.9 10 Oral 480 905 400 Output: Urine 200 Other: Voiding Method Bedside Commode Bedside Commode # Voids 2 1 1 # Bowel Movements 1 - Exam General: well nourished, well developed, NAD. Vitals reviewed Lungs: poor air entry throughout, no wheezes or rhonchi CV: Regular rate and rhythm, no murmur. Peripheral pulses 2+ Skin: warm and dry. No edema. Neuro: A&Ox3, normal mood and affect - Labs CBC & Chem 7: 08/25/19 05:32 08/25/19 05:32 Labs: Abnormal Lab Results - Last 24 Hours (Table) 08/25/19 08/25/19 08/25/19 Range/Units 05:32 05:32 07:12 Hgb 10.2 L (11.4-16.0) gm/dL MCV 77.5 L (80.0-100.0) fL MCH 23.1 L (25.0-35.0) pg MCHC 29.8 L (31.0-37.0) g/dL RDW 15.9 H (11.5-15.5) % Plt Count 134 L (150-450) k/uL Lymphocytes # 0.3 L (1.0-4.8) k/uL Carbon Dioxide 32 H (22-30) mmol/L BUN 48 H (7-17) mg/dL Creatinine 1.39 H (0.52-1.04) mg/dL Glucose 257 H (74-99) mg/dL POC Glucose (mg/dL) 254 H (75-99) mg/dL 08/25/19 08/25/19 08/25/19 Range/Units 12:32 16:43 20:27 Hgb (11.4-16.0) gm/dL MCV (80.0-100.0) fL MCH (25.0-35.0) pg MCHC (31.0-37.0) g/dL RDW (11.5-15.5) % Plt Count (150-450) k/uL Lymphocytes # (1.0-4.8) k/uL Carbon Dioxide (22-30) mmol/L BUN (7-17) mg/dL Creatinine (0.52-1.04) mg/dL Glucose (74-99) mg/dL POC Glucose (mg/dL) 196 H 379 H 323 H (75-99) mg/dL Microbiology - Last 24 Hours (Table) 08/23/19 12:55 Blood Culture - Preliminary Blood No Growth after 48 hours Assessment and Plan (1) COPD with acute exacerbation Current Visit: Yes Status: Acute Code(s): J44.1 - CHRONIC OBSTRUCTIVE PULMONARY DISEASE W (ACUTE) EXACERBATION SNOMED Code(s): 341651710 (2) Acute and chronic respiratory failure with hypoxia Current Visit: Yes Status: Acute Code(s): J96.21 - ACUTE AND CHRONIC RESPIRATORY FAILURE WITH HYPOXIA SNOMED Code(s): 12671051 (3) Steroid-dependent chronic obstructive pulmonary disease Current Visit: Yes Status: Acute Code(s): J44.9 - CHRONIC OBSTRUCTIVE PULMONARY DISEASE, UNSPECIFIED SNOMED Code(s): 91674609 (4) Chronic kidney disease, stage 3 Current Visit: Yes Status: Acute Code(s): N18.3 - CHRONIC KIDNEY DISEASE, STAGE 3 (MODERATE) SNOMED Code(s): 936867162 (5) Hypothyroid Current Visit: No Status: Acute Code(s): E03.9 - HYPOTHYROIDISM, UNSPECIFIED SNOMED Code(s): 32719484 (6) Type 2 diabetes mellitus Current Visit: No Status: Acute Code(s): E11.9 - TYPE 2 DIABETES MELLITUS WITHOUT COMPLICATIONS SNOMED Code(s): 21702075 Plan: 1. COPD exacerbation. Pulmonary consulted. Continue IV steroids, pulmicort, levaquin duonebs. Add chest physiotherapy 2. T2DM. Inc levemir. Continue 15 U novolog tid. Sliding scale 3. HTN in CKD3. Add lisinopril 20 mg. Continue hydralazine and norvasc DVT prophylaxis heparin
[2019-08-26] MEDS: methylPREDNISolone SOD SUCCI 125 MG/2 ML VIAL IV SCH ×3 (00:16→11:30)
[2019-08-26] MEDS: LEVOTHYROXINE 88 MCG TAB PO SCH (06:02)
[2019-08-26] MEDS: THYROID, PORK 30 MG TAB PO SCH (06:02)
[2019-08-26 07:05] LABS: Glucose,Whole Blood 301 mg/dL (75-99)
[2019-08-26] MEDS: IPRATROPIUM-ALBUTEROL 3 ML NEB INHALATION SCH ×2 (07:20→11:03)
[2019-08-26] MEDS: BUDESONIDE 1 MG/2 ML NEBU INHALATION SCH (07:20)
[2019-08-26] MEDS: FORMOTEROL FUMARATE 20 MCG/2 ML NEBU INHALATION SCH (07:20)
[2019-08-26] MEDS: hydrALAZINE HCL 25 MG TAB PO SCH (07:33)
[2019-08-26] MEDS: HEPARIN SODIUM,PORCINE 5,000 UNIT/ML 1 ML VIAL SQ SCH (07:33)
[2019-08-26] MEDS: SERTRALINE 50 MG TAB PO SCH (07:33)
[2019-08-26] MEDS: amLODIPine 10 MG TAB PO SCH (07:33)
[2019-08-26] MEDS: LISINOPRIL 20 MG TAB PO SCH (07:33)
[2019-08-26] MEDS: INSULIN ASPART (NovoLOG) 100 UNIT/ML VIAL SQ SCH ×4 (07:37→12:25)
--- NOTE | 2019-08-26 10:01 | P.DS ---
Providers Date of admission: 08/23/19 16:24 Expected date of discharge: 08/26/19 Attending physician: Sathish Banks MD Consults: 08/24/19 11:43 Consult Physician Stat Consulting Provider: Jon Portillo Consult Reason/Comments: COPD exacerbation, PNA Do you want consulting provider notified?: Yes Primary care physician: Rhianna Salas [facility] Course: Final Diagnoses: (1) COPD with acute exacerbation Current Visit: Yes Status: Acute Code(s): J44.1 - CHRONIC OBSTRUCTIVE PULMONARY DISEASE W (ACUTE) EXACERBATION SNOMED Code(s): 973083364 (2) Acute and chronic respiratory failure with hypoxia Current Visit: Yes Status: Acute Code(s): J96.21 - ACUTE AND CHRONIC RESPIRATORY FAILURE WITH HYPOXIA SNOMED Code(s): 22052444 (3) Steroid-dependent chronic obstructive pulmonary disease Current Visit: Yes Status: Acute Code(s): J44.9 - CHRONIC OBSTRUCTIVE PULMONARY DISEASE, UNSPECIFIED SNOMED Code(s): 40015162 (4) Chronic kidney disease, stage 3 Current Visit: Yes Status: Acute Code(s): N18.3 - CHRONIC KIDNEY DISEASE, STAGE 3 (MODERATE) SNOMED Code(s): 167843573 (5) Hypothyroid Current Visit: No Status: Acute Code(s): E03.9 - HYPOTHYROIDISM, UNSPECIFIED SNOMED Code(s): 35266082 (6) Type 2 diabetes mellitus Current Visit: No Status: Acute Code(s): E11.9 - TYPE 2 DIABETES MELLITUS WITHOUT COMPLICATIONS SNOMED Code(s): 35031635 (7) Hypertension Hospital course:Mrs. Moran is a 68-year-old female with a past medical history of end-stage COPD, diabetes mellitus, hypertension, recurrent pneumonia, morbid obesity coming in with a chief complaint of difficulty in breathing for the past 7-10 days. Patient's has been having shortness of breath along with cough for the past 1 week. She has history of recurrent pneumonias. Chest x-ray done in the ED showing interstitial pneumonia. Patient follows with Dr. Cunningham and he has started her on steroids and Levaquin but patient did not have significant improvement and so came in for further evaluation. Patient denies having any fevers chills or rigors. No chest pain or palpitations. No abdominal pain nausea vomiting or diarrhea. No lower extremity edema. No orthopnea or PND. In the emergency patient had labs done that was within normal limits except for mildly elevated creatinine. Her blood sugars have been running high due to chronic steroid dependence. The chest x-ray showing increased infiltrates. Patient has been started on Solu-Medrol, breathing treatments and Levaquin and admitted for further management. On 08/24/2019 - patient is lying comfortably in the bed appears to be in no acute distress. No acute events reported by nursing staff overnight. Patient states her breathing is a little better compared to yesterday. She is still short of breath on walking from the bed to the bathroom. She's been getting breathing treatments that seem to be helping her. Patient's blood sugars have been running high, this happens to her when she is on steroids. Her blood pressure has been running marginally high. Patient also has left lower extremity swelling that is chronic in nature due to a crush injury in the past. And when she takes steroids the swelling appears to be increasing in size. She denies having any cough tenderness. She denies having any fevers chills or rigors. No abdominal pain nausea vomiting or diarrhea. No dysuria or hematuria. 08/25. She is resting in bed today, reports an improvement in her breathing but continues to complain of cough and dyspnea with exertion. Blood glucose is improved today. She continues to have uncontrolled hypertension today. Significant clinical improvement. Patient will be discharged home pending pulmonary clearance, in a stable condition with guarded prognosis. - Exam General: Alert and oriented 3, no acute distress Lungs: Better air entry, bilateral bases diminished, no wheezes or rhonchi CV: Regular rate and rhythm, no murmur. Peripheral pulses 2+ Neuro: No focal deficits The impression and plan of care has been dictated as directed. : I performed a history and examination of this patient, discussed the same with the dictator. I agree with the dictator's note ,documented as a scribe. Any additional findings or plans will be noted. Patient Condition at Discharge: Stable Plan - Discharge Summary Discharge Rx Participant: No New Discharge Prescriptions: New Levofloxacin [Levaquin] 750 mg PO DAILY #2 tab predniSONE 10 mg PO DIRECTED #30 tab Lisinopril [Zestril] 20 mg PO DAILY #30 tab Continue glipiZIDE [Glucotrol] 10 mg PO AC-BID amLODIPine [Norvasc] 10 mg PO DAILY Pravastatin Sodium [Pravachol] 40 mg PO HS Tiotropium 18 Mcg/Puff [Spiriva] 1 cap INHALATION RT-DAILY Sertraline [Zoloft] 150 mg PO HS Albuterol Sulfate [Proair Hfa] 1 - 2 puff INHALATION RT-Q6H PRN PRN Reason: Shortness Of Breath Levothyroxine Sodium [Synthroid] 88 mcg PO DAILY Budesonide/Formoterol Fumarate [Symbicort 160-4.5 Mcg Inhaler] 2 puff INHALATION RT-BID Thyroid,Pork [Footwear Sales Representative Thyroid] 30 mg PO DAILY Montelukast [Singulair] 10 mg PO HS hydrALAZINE HCL 25 mg PO TID #90 tablet Ipratropium-Albuterol Nebulize [Duoneb 0.5 mg-3 mg/3 ml Soln] 3 ml INHALATION RT-QID Changed Insulin Glargine [Lantus] 70 unit SQ HS #0 Discharge Medication List Albuterol Sulfate [Proair Hfa] 1 - 2 puff INHALATION RT-Q6H PRN 05/22/19 [History] Budesonide/Formoterol Fumarate [Symbicort 160-4.5 Mcg Inhaler] 2 puff INHALATION RT-BID 05/22/19 [History] Levothyroxine Sodium [Synthroid] 88 mcg PO DAILY 05/22/19 [History] Montelukast [Singulair] 10 mg PO HS 05/22/19 [History] Pravastatin Sodium [Pravachol] 40 mg PO HS 05/22/19 [History] Sertraline [Zoloft] 150 mg PO HS 05/22/19 [History] Thyroid,Pork [Footwear Sales Representative Thyroid] 30 mg PO DAILY 05/22/19 [History] Tiotropium 18 Mcg/Puff [Spiriva] 1 cap INHALATION RT-DAILY 05/22/19 [History] amLODIPine [Norvasc] 10 mg PO DAILY 05/22/19 [History] glipiZIDE [Glucotrol] 10 mg PO AC-BID 05/22/19 [History] hydrALAZINE HCL 25 mg PO TID #90 tablet 05/26/19 [Rx] Ipratropium-Albuterol Nebulize [Duoneb 0.5 mg-3 mg/3 ml Soln] 3 ml INHALATION RT-QID 08/23/19 [History] Insulin Glargine [Lantus] 70 unit SQ HS #0 08/26/19 [Rx] Levofloxacin [Levaquin] 750 mg PO DAILY #2 tab 08/26/19 [Rx] Lisinopril [Zestril] 20 mg PO DAILY #30 tab 08/26/19 [Rx] predniSONE 10 mg PO DIRECTED #30 tab 08/26/19 [Rx] Follow up Appointment(s)/Referral(s): [facility], [NON-STAFF] - Sathish Banks MD [STAFF PHYSICIAN] - 08/29/19 ([place] office please) Ambulatory/Diagnostic Orders: Complete Blood Count w/diff [LAB.AMB] Time Frame: 3 Days, Location: None Selected Activity/Diet/Wound Care/Special Instructions: Per patient request, please schedule follow-up visit with [place] office please. Patient wears 4-5 L nasal cannula O2 at home Diet: Consistent carb Accu-Cheks before meals and at bedtime, maintain log intake to follow-up visit with PCP for further recommendations. Lantus dose has been increased while on steroid taper, to be further addressed at follow-up visit with PCP. Activity: Limited until follow up Discharge Disposition: HOME WITH HOME HEALTH SERVICES
--- NOTE | 2019-08-26 12:04 | P.PN ---
Subjective Progress Note Date: 08/26/19 Principal diagnosis: Acute exacerbation of chronic obstructive pulmonary disease, complicated by atypical pneumonia the patient is seen today 08/26/2019 in follow-up on the regular medical floor. She states she is breathing quite a bit better today as compared to yesterday. She was treated with DuoNeb inhalations, IV Solu-Medrol and Levaquin. She is maintaining O2 saturations in the low 90s on 5 L/m per nasal cannula which is her home oxygen either 4 or 5 L. Blood cultures reveal no growth. She is anxious to go home. Objective - Vital Signs Vital signs: Vital Signs Temp 97.0 F L 08/26/19 05:00 Pulse 92 08/26/19 11:13 Resp 16 08/26/19 11:13 BP 161/62 08/26/19 05:00 Pulse Ox 94 L 08/26/19 11:13 Intake & Output 08/25/19 08/26/19 08/26/19 18:59 06:59 18:59 Intake Total 905 800 Balance 905 800 Intake: Oral 905 800 Other: Voiding Method Bedside Commode Bedside Commode Bedside Commode # Voids 1 1 1 # Bowel Movements 1 1 - Exam GENERAL EXAM: Alert, pleasant 68-year-old female patient on 5 L nasal cannula, comfortable in no apparent distress. HEAD: Normocephalic. EYES: Normal reaction of pupils, equal size. NOSE: Clear with pink turbinates. THROAT: No erythema or exudates. NECK: No masses, no JVD. CHEST: No chest wall deformity. LUNGS: Equal air entry with few scattered rhonchi, end expiratory wheeze, diminished. CVS: S1 and S2 normal with no audible murmur, regular rhythm. ABDOMEN: No hepatosplenomegaly, normal bowel sounds, no guarding or rigidity. SPINE: No scoliosis or deformity SKIN: No rashes CENTRAL NERVOUS SYSTEM: No focal deficits, tone is normal in all 4 extremities. EXTREMITIES: There is no peripheral edema. No clubbing, no cyanosis. Peripheral pulses are intact. - Labs CBC & Chem 7: 08/25/19 05:32 08/25/19 05:32 Labs: Abnormal Lab Results - Last 24 Hours (Table) 08/25/19 08/25/19 08/25/19 Range/Units 12:32 16:43 20:27 POC Glucose (mg/dL) 196 H 379 H 323 H (75-99) mg/dL 08/26/19 Range/Units 06:57 POC Glucose (mg/dL) 301 H (75-99) mg/dL Microbiology - Last 24 Hours (Table) 08/23/19 12:55 Blood Culture - Preliminary Blood No Growth after 48 hours Assessment and Plan Assessment: 1 Acute exacerbation of chronic obstructive pulmonary disease, complicated by interstitial/atypical pneumonia. 2 Prior history of ARDS, requiring long-term intubation mechanical ventilation and subsequent tracheostomy. 3 Previous history of heavy tobacco dependence. 4 Hypothyroidism. 5 Hyperlipidemia. 6 Hypertension. 7 Diabetes mellitus. 8 Morbid obesity. Plan: The patient was seen and evaluated by Dr. Mazariegos. She is back to her baseline as far as her pulmonary status is concerned.she could be discharged home on a course of antibiotics. A prednisone taper. Home pulmonary medications. Follow-up in the office in 1-2 weeks' time. She is encouraged to call sooner with any recurrence of symptoms or other questions or concerns. I, the cosigning physician, performed a history & physical examination of the patient. Lungs sounds few scattered rhonchi, end expiratory wheeze, diminished. Maintaining good O2 saturations in the 90s on 5 L/m per nasal cannula I discussed the assessment and plan of care with my nurse practitioner, Leslee Lombardi. I attest to the above note as dictated by her.
[2019-08-26 12:18] LABS: Glucose,Whole Blood 180 mg/dL (75-99)
[2019-08-26 14:16] VITALS: BP 164/62; PULSE 106; RESP 20; TEMP 97.7
== END 2019-08-26 14:09 | disposition home health service (06) | DRG 193 ==
LOC: EC 12:40 → 3SCARD 16:24 → 4MS4W 08-25 14:12
PROVIDERS: ADMIT Family Medicine; ATTEND Family Medicine
DX: J18.9 Pneumonia, unspecified organism (principal); J96.21 Acute and chronic respiratory failure with hypoxia; J44.0 Chronic obstructive pulmonary disease with (acute) lower respiratory infection; J44.1 Chronic obstructive pulmonary disease with (acute) exacerbation; N18.3 Chronic kidney disease, stage 3 (moderate); E03.9 Hypothyroidism, unspecified; E11.22 Type 2 diabetes mellitus with diabetic chronic kidney disease; E11.65 Type 2 diabetes mellitus with hyperglycemia; E66.01 Morbid (severe) obesity due to excess calories; Z68.36 Body mass index [BMI] 36.0-36.9, adult; E78.5 Hyperlipidemia, unspecified; F41.9 Anxiety disorder, unspecified; I12.9 Hypertensive chronic kidney disease with stage 1 through stage 4 chronic kidney disease, or unspecified chronic kidney disease; T38.0X5A Adverse effect of glucocorticoids and synthetic analogues, initial encounter; Z79.4 Long term (current) use of insulin; Z79.51 Long term (current) use of inhaled steroids; Z79.52 Long term (current) use of systemic steroids; Z79.890 Hormone replacement therapy; Z79.899 Other long term (current) drug therapy; Z82.0 Family history of epilepsy and other diseases of the nervous system; Z82.49 Family history of ischemic heart disease and other diseases of the circulatory system; Z83.3 Family history of diabetes mellitus; Z87.01 Personal history of pneumonia (recurrent); Z87.891 Personal history of nicotine dependence; Z90.49 Acquired absence of other specified parts of digestive tract; Z90.710 Acquired absence of both cervix and uterus; Z88.0 Allergy status to penicillin; Z88.8 Allergy status to other drugs, medicaments and biological substances
CPT/HCPCS: 36415; 71046; 80048; 80053; 83605; 83735; 83880; 84439; 84443; 84484; 85025; 85610; 85730; 87040; 93005; 94640; 94667; 94668; 94760; 96361; 96365; 96375; 99285

== ENCOUNTER 2019-08-27 13:31 | Inpatient (IN) | payer MEDICARE ==
[2019-08-27] MEDS ORDERED: IPRATROPIUM-ALBUTEROL 3 ML NEB INHALATION STA (13:47)
[2019-08-27] MEDS ORDERED: SODIUM CHLORIDE 0.9% 1,000 ML IV STA (13:47)
[2019-08-27] MEDS ORDERED: methylPREDNISolone SOD SUCCI 125 MG/2 ML VIAL IV STA (13:47)
--- NOTE | 2019-08-27 13:49 | ED ---
General Adult HPI - General Chief complaint: Shortness of Breath Stated complaint: Sob Time Seen by Provider: 08/27/19 13:39 Source: patient, EMS, RN notes reviewed Limitations: no limitations - History of Present Illness Initial comments: Patient is a pleasant 68-year-old female presenting to the emergency department with difficulty breathing. Patient has had worsening symptoms over the past couple months, worsening again yesterday. Patient states he was just discharged from the hospital. Patient spoke with Dr. Cunningham who recommended she come back to the hospital. Patient states she has occasional nonproductive cough. Dyspnea is similar to previous COPD. No fevers. No chest pain. - Related Data Home Medications Medication Instructions Recorded Confirmed Albuterol Sulfate [Proair Hfa] 1 - 2 puff INHALATION RT-Q6H PRN 05/22/19 08/23/19 Budesonide/Formoterol Fumarate 2 puff INHALATION RT-BID 05/22/19 08/23/19 [Symbicort 160-4.5 Mcg Inhaler] Levothyroxine Sodium [Synthroid] 88 mcg PO DAILY 05/22/19 08/23/19 Montelukast [Singulair] 10 mg PO HS 05/22/19 08/23/19 Pravastatin Sodium [Pravachol] 40 mg PO HS 05/22/19 08/23/19 Sertraline [Zoloft] 150 mg PO HS 05/22/19 08/23/19 Thyroid,Pork [Vessel Ordinary Seaman Thyroid] 30 mg PO DAILY 05/22/19 08/23/19 Tiotropium 18 Mcg/Puff [Spiriva] 1 cap INHALATION RT-DAILY 05/22/19 08/23/19 amLODIPine [Norvasc] 10 mg PO DAILY 05/22/19 08/23/19 glipiZIDE [Glucotrol] 10 mg PO AC-BID 05/22/19 08/23/19 Ipratropium-Albuterol Nebulize 3 ml INHALATION RT-QID 08/23/19 08/23/19 [Duoneb 0.5 mg-3 mg/3 ml Soln] Previous Rx's Medication Instructions Recorded hydrALAZINE HCL 25 mg PO TID #90 tablet 05/26/19 Insulin Glargine [Lantus] 70 unit SQ HS #0 08/26/19 Levofloxacin [Levaquin] 750 mg PO DAILY #2 tab 08/26/19 Lisinopril [Zestril] 20 mg PO DAILY #30 tab 08/26/19 predniSONE 10 mg PO DIRECTED #30 tab 08/26/19 Allergies Allergy/AdvReac Type Severity Reaction Status Date / Time Penicillins Allergy Anaphylaxis Verified 08/23/19 16:51 zolpidem [From Ambien] AdvReac Confusion Verified 08/23/19 16:51 Review of Systems ROS Statement: Those systems with pertinent positive or pertinent negative responses have been documented in the HPI. ROS Other: All systems not noted in ROS Statement are negative. Constitutional: Denies: fever Eyes: Denies: eye pain ENT: Denies: ear pain Respiratory: Reports: as per HPI, cough, dyspnea Cardiovascular: Denies: chest pain Endocrine: Reports: fatigue Gastrointestinal: Denies: abdominal pain Genitourinary: Denies: dysuria Musculoskeletal: Denies: back pain Skin: Denies: rash Neurological: Denies: weakness Past Medical History Past Medical History: COPD, Diabetes Mellitus, Hypertension Additional Past Medical History / Comment(s): ARDS secondary to pneumonia more than 10 years ago requiring tracheostomy tube insertion, COPD with established FEV1 of 41% of predicted, diabetes mellitus, hypertension, history of morbid obesity History of Any Multi-Drug Resistant Organisms: None Reported Past Surgical History: Cholecystectomy, Hysterectomy Past Anesthesia/Blood Transfusion Reactions: No Reported Reaction Past Psychological History: Anxiety Smoking Status: Former smoker Past Alcohol Use History: None Reported Past Drug Use History: None Reported - Past Family History Mother Family Medical History: Congestive Heart Failure (CHF), Diabetes Mellitus Additional Family Medical History / Comment(s): The patient's mother had congestion heart failure and diabetes mellitus in the father had Parkinson's disease. General Exam Limitations: no limitations General appearance: alert Head exam: Present: normocephalic Eye exam: Present: normal appearance, PERRL ENT exam: Present: normal oropharynx Neck exam: Present: normal inspection Respiratory exam: Present: wheezes, decreased breath sounds Cardiovascular Exam: Present: regular rate, normal rhythm GI/Abdominal exam: Present: soft. Absent: tenderness Extremities exam: Present: pedal edema (+ 1 bilateral). Absent: calf tenderness Neurological exam: Present: alert Psychiatric exam: Present: normal affect, normal mood Skin exam: Present: normal color Course Vital Signs 08/27/19 08/27/19 08/27/19 13:33 13:39 14:04 Temperature 97 F L Pulse Rate 91 96 Respiratory 20 20 Rate Blood Pressure 164/82 O2 Sat by Pulse 96 Oximetry 08/27/19 14:14 Temperature Pulse Rate 94 Respiratory Rate Blood Pressure O2 Sat by Pulse Oximetry EKG Findings - EKG Comments: EKG Findings:: Normal sinus rhythm and 94. CT 136. QRS 80. QT 320. QTc 400. Normal axis. Normal QRS. No acute ST change. Medical Decision Making - Medical Decision Making Patient reevaluated and updated. Dr. Oliva has been paged for admission for Dr. Salas. - Lab Data Result diagrams: 08/27/19 13:53 08/27/19 13:53 Lab Results 08/27/19 08/27/19 Range/Units 13:53 13:53 WBC 8.5 (3.8-10.6) k/uL RBC 4.71 (3.80-5.40) m/uL Hgb 10.7 L (11.4-16.0) gm/dL Hct 35.7 (34.0-46.0) % MCV 75.8 L (80.0-100.0) fL MCH 22.7 L (25.0-35.0) pg MCHC 30.0 L (31.0-37.0) g/dL RDW 16.4 H (11.5-15.5) % Plt Count 156 (150-450) k/uL Neutrophils % 92 % Lymphocytes % 4 % Monocytes % 3 % Eosinophils % 0 % Basophils % 1 % Neutrophils # 7.9 H (1.3-7.7) k/uL Lymphocytes # 0.3 L (1.0-4.8) k/uL Monocytes # 0.3 (0-1.0) k/uL Eosinophils # 0.0 (0-0.7) k/uL Basophils # 0.0 (0-0.2) k/uL Hypochromasia Marked Anisocytosis Slight Microcytosis Slight Sodium 141 (137-145) mmol/L Potassium 5.2 H (3.5-5.1) mmol/L Chloride 105 (98-107) mmol/L Carbon Dioxide 31 H (22-30) mmol/L Anion Gap 5 mmol/L BUN 54 H (7-17) mg/dL Creatinine 1.33 H (0.52-1.04) mg/dL Est GFR (CKD-EPI)AfAm 47 (>60 ml/min/1.73 sqM) Est GFR (CKD-EPI)NonAf 41 (>60 ml/min/1.73 sqM) Glucose 144 H (74-99) mg/dL Calcium 9.2 (8.4-10.2) mg/dL Total Bilirubin 0.3 (0.2-1.3) mg/dL AST 29 (14-36) U/L ALT 42 (9-52) U/L Alkaline Phosphatase 89 (38-126) U/L Total Protein 5.4 L (6.3-8.2) g/dL Albumin 3.3 L (3.5-5.0) g/dL - Radiology Data Radiology results: image reviewed (Chest x-ray shows cardiomegaly and improving bilateral interstitial edema or infiltrate. No new acute process.) Disposition Clinical Impression: COPD (chronic obstructive pulmonary disease) Disposition: ADMITTED IP TO THIS HOSP Is patient prescribed a controlled substance at d/c from ED?: No Referrals: Rhianna Salas DO [REFERRING] - 1-2 days Decision Time: 15:05
[2019-08-27 14:49] LABS: Anisocytosis Slight; Basophils % (A) 1 %; Eosinophils % (A) 0 %; HCT 35.7 % (34.0-46.0); HGB 10.7 gm/dL (11.4-16.0); Hypochromasia Marked; Lymphocytes # (A) 0.3 k/uL (1.0-4.8); Lymphocytes % (A) 4 %; MCH 22.7 pg (25.0-35.0); MCV 75.8 fL (80.0-100.0); Mean Platelet Volume 6.2; Microcytosis Slight; Monocytes # (A) 0.3 k/uL (0-1.0); Monocytes % (A) 3 %; Neutrophils # (A) 7.9 k/uL (1.3-7.7); Neutrophils % (A) 92 %; Platelet Count 156 k/uL (150-450); RBC 4.71 m/uL (3.80-5.40); RDW 16.4 % (11.5-15.5); WBC 8.5 k/uL (3.8-10.6)
--- NOTE | 2019-08-27 14:54 | XR ---
EXAMINATION TYPE: XR chest 2V DATE OF EXAM: 08/27/2019 COMPARISON: Chest x-ray 4 days ago. HISTORY: History of COPD with shortness of breath. TECHNIQUE: Frontal and lateral views of the chest are obtained. FINDINGS: There is improved interstitial markings bilaterally. Persistent patchy right basilar atel ectasis and/or scarring. Background chronic emphysematous and parenchymal changes redemonstrated. No new suspicious focal airspace opacity, pleural effusion, or pneumothorax bilaterally. The cardiac tdo houette size remains enlarged with atherosclerotic aorta. The osseous structures are intact. IMPRESSION: Improving bilateral interstitial edema and/or infiltrates. Redemonstration of background cardiomegaly and chronic emphysematous and parenchymal changes without new acute pulmonary process.
[2019-08-27 14:56] LABS: Albumin 3.3 g/dL (3.5-5.0); Calcium 9.2 mg/dL (8.4-10.2); Potassium 5.2 mmol/L (3.5-5.1); Total Bilirubin 0.3 mg/dL (0.2-1.3); Total Protein 5.4 g/dL (6.3-8.2)
[2019-08-27] MEDS ORDERED: IPRATROPIUM-ALBUTEROL 3 ML NEB INHALATION PRN (15:05)
[2019-08-27] MEDS: IPRATROPIUM-ALBUTEROL 3 ML NEB INHALATION SCH ×2 (16:20→20:03)
[2019-08-27 16:55] LABS: Glucose,Whole Blood 194 mg/dL (75-99)
[2019-08-27] MEDS: methylPREDNISolone SOD SUCCI 125 MG/2 ML VIAL IV SCH (18:37)
[2019-08-27] MEDS: BUDESONIDE 1 MG/2 ML NEBU INHALATION SCH (20:03)
[2019-08-27 20:18] LABS: Glucose,Whole Blood 445 mg/dL (75-99)
[2019-08-27] MEDS: SERTRALINE 50 MG TAB PO SCH (20:50)
[2019-08-27] MEDS: PRAVASTATIN SODIUM 40 MG TAB PO SCH (20:50)
[2019-08-27] MEDS: MONTELUKAST 10 MG TAB PO SCH (20:50)
[2019-08-27] MEDS: INSULIN DETEMIR (LEVEMIR) 100 UNIT/ML SYR SQ SCH (20:50)
[2019-08-27] MEDS: INSULIN ASPART (NovoLOG) 100 UNIT/ML VIAL SQ SCH (20:50)
[2019-08-27 23:29] LABS: Glucose,Whole Blood 485 mg/dL (75-99)
[2019-08-28 01:08] LABS: Glucose,Whole Blood 407 mg/dL (75-99)
[2019-08-28] MEDS: methylPREDNISolone SOD SUCCI 125 MG/2 ML VIAL IV SCH ×5 (01:30→23:03)
[2019-08-28] MEDS: LEVOTHYROXINE 88 MCG TAB PO SCH (05:05)
[2019-08-28 07:10] LABS: Glucose,Whole Blood 299 mg/dL (75-99)
[2019-08-28] MEDS: THYROID, PORK 30 MG TAB PO SCH (07:17)
[2019-08-28] MEDS: INSULIN ASPART (NovoLOG) 100 UNIT/ML VIAL SQ SCH ×6 (07:17→20:25)
[2019-08-28] MEDS: LISINOPRIL 20 MG TAB PO SCH (07:17)
[2019-08-28] MEDS: amLODIPine 10 MG TAB PO SCH (07:17)
[2019-08-28] MEDS: BUDESONIDE 1 MG/2 ML NEBU INHALATION SCH ×2 (07:32→19:51)
[2019-08-28] MEDS: IPRATROPIUM-ALBUTEROL 3 ML NEB INHALATION SCH ×4 (07:33→19:51)
[2019-08-28 07:35] LABS: Basophils % (A) 0 %; Eosinophils % (A) 0 %; HCT 33.7 % (34.0-46.0); HGB 9.9 gm/dL (11.4-16.0); Hypochromasia Marked; Lymphocytes # (A) 0.2 k/uL (1.0-4.8); Lymphocytes % (A) 3 %; MCH 22.9 pg (25.0-35.0); MCHC 29.3 g/dL (31.0-37.0); MCV 77.9 fL (80.0-100.0); Mean Platelet Volume 6.3; Microcytosis Slight; Monocytes # (A) 0.2 k/uL (0-1.0); Monocytes % (A) 3 %; Neutrophils % (A) 94 %; Platelet Count 139 k/uL (150-450); RBC 4.33 m/uL (3.80-5.40); RDW 15.8 % (11.5-15.5); WBC 5.4 k/uL (3.8-10.6)
[2019-08-28 07:47] LABS: Potassium 4.8 mmol/L (3.5-5.1)
[2019-08-28] MEDS ORDERED: LEVOFLOXACIN 750 MG TAB PO SCH (09:00)
[2019-08-28 11:45] LABS: ABG Base Excess 1.5 mmol/L; ABG HCO3 28 mmol/L (21-25); ABG Oxygen Saturation 93.9 % (94-97); ABG PCO2 53 mmHg (35-45); ABG PH 7.32 (7.35-7.45); ABG PO2 73 mmHg (83-108); ABG TCO2 29 mmol/L (19-24); Allen Test Performed? Yes
[2019-08-28 11:50] LABS: Glucose,Whole Blood 260 mg/dL (75-99)
--- NOTE | 2019-08-28 12:35 | P.CNPUL ---
History of Present Illness Consult date: 08/28/19 Requesting physician: Sathish Banks Reason for consult: dyspnea, COPD Chief complaint: Shortness of breath History of present illness: This is 68-year-old patient of Dr. Banks with history of advanced COPD, on home oxygen usually at 4 L on a regular basis, her baseline FEV1 is 0.76 L or 35% of predicted, who was recently discharged on 06/26/2019 after being hospitalized for acute exacerbation of chronic obstructive pulmonary disease and pneumonia involving the left lung, and component of interstitial edema. Patient was doing well, likely improved, and was discharged home however last night and 08/27/2019 she had worsening of her symptoms and she came back to the emergency department for reevaluation, chest x-ray was completed showing improving bilateral interstitial edema and infiltrates, compared to her last chest x-ray. Lab work did not have any evidence of leukocytosis, with blood cell, was 5.4, hemoglobin was 9.9, electrolytes were within normal limits, B1 is 49 and creat inine was 1.24. Denied any fever or chills, hemodynamically she stable, her pulse ox is 96% on 5 L. Patient was discharged home on oral Levaquin, prednisone taper, and she is on Spiriva, Singulair, Symbicort and DuoNeb on a regular basis. Patient has been restarted on her Levaquin, she was started on IV steroids and breathing treatments and this morning where seen the patient in reevaluation for her shortness of breath, related to COPD and recent history of pneumonia Review of Systems All systems: negative Constitutional: Denies chills, Denies fever Eyes: denies blurred vision, denies pain Ears, nose, mouth and throat: Denies headache, Denies sore throat Cardiovascular: Denies chest pain, Denies shortness of breath Respiratory: Reports dyspnea, Reports home oxygen, Reports respiratory infections, Reports wheezing, Denies cough Gastrointestinal: Denies abdominal pain, Denies diarrhea, Denies nausea, Denies vomiting Genitourinary: Denies dysuria, Denies hematuria Musculoskeletal: Denies myalgias Integumentary: Denies pruritus, Denies rash Neurological: Denies numbness, Denies weakness Psychiatric: Denies anxiety, Denies depression Endocrine: Denies fatigue, Denies weight change Past Medical History Past Medical History: COPD, Diabetes Mellitus, Hypertension Additional Past Medical History / Comment(s): ARDS secondary to pneumonia more than 10 years ago requiring tracheostomy tube insertion, COPD with established FEV1 of 41% of predicted, diabetes mellitus, hypertension, history of morbid obesity History of Any Multi-Drug Resistant Organisms: None Reported Past Surgical History: Cholecystectomy, Hysterectomy Past Anesthesia/Blood Transfusion Reactions: No Reported Reaction Past Psychological History: Anxiety Smoking Status: Former smoker Past Alcohol Use History: None Reported Past Drug Use History: None Reported - Past Family History Mother Family Medical History: Congestive Heart Failure (CHF), Diabetes Mellitus Additional Family Medical History / Comment(s): The patient's mother had congestion heart failure and diabetes mellitus in the father had Parkinson's disease. Medications and Allergies Home Medications Medication Instructions Recorded Confirmed Type Albuterol Sulfate [Proair Hfa] 1 - 2 puff INHALATION RT-Q6H PRN 05/22/19 08/27/19 History Budesonide/Formoterol Fumarate 2 puff INHALATION RT-BID 05/22/19 08/27/19 History [Symbicort 160-4.5 Mcg Inhaler] Levothyroxine Sodium [Synthroid] 88 mcg PO DAILY 05/22/19 08/27/19 History Montelukast [Singulair] 10 mg PO HS 05/22/19 08/27/19 History Pravastatin Sodium [Pravachol] 40 mg PO HS 05/22/19 08/27/19 History Sertraline [Zoloft] 150 mg PO HS 05/22/19 08/27/19 History Thyroid,Pork [Window Glazier Thyroid] 30 mg PO DAILY 05/22/19 08/27/19 History Tiotropium 18 Mcg/Puff [Spiriva] 1 cap INHALATION RT-DAILY 05/22/19 08/27/19 History amLODIPine [Norvasc] 10 mg PO DAILY 05/22/19 08/27/19 History glipiZIDE [Glucotrol] 10 mg PO AC-BID 05/22/19 08/27/19 History Ipratropium-Albuterol Nebulize 3 ml INHALATION RT-QID 08/23/19 08/27/19 History [Duoneb 0.5 mg-3 mg/3 ml Soln] Levofloxacin [Levaquin] 750 mg PO DAILY #2 tab 08/26/19 08/27/19 Rx Lisinopril [Zestril] 20 mg PO DAILY #30 tab 08/26/19 08/27/19 Rx Insulin Glargine [Lantus] See Protocol SQ HS 08/27/19 08/27/19 History predniSONE See Taper PO DIRECTED 08/27/19 08/27/19 History Allergies Allergy/AdvReac Type Severity Reaction Status Date / Time Penicillins Allergy Anaphylaxis Verified 08/27/19 15:55 zolpidem [From Ambien] AdvReac Confusion Verified 08/27/19 15:55 Physical Exam Vitals: Vital Signs Temp Pulse Pulse Pulse Resp BP BP 08/28/19 11:51 97 08/28/19 11:39 104 H 08/28/19 07:47 95 08/28/19 07:33 98 08/28/19 06:50 97.6 F 92 17 159/68 08/28/19 00:56 98.3 F 103 H 16 170/64 08/28/19 00:19 92 08/28/19 00:09 90 08/27/19 20:19 92 08/27/19 20:03 92 08/27/19 19:01 97.9 F 98 18 145/64 08/27/19 16:31 97 08/27/19 16:20 97 08/27/19 15:51 98.1 F 100 16 179/77 08/27/19 15:37 88 20 166/74 08/27/19 15:00 97 08/27/19 14:30 94 166/74 08/27/19 14:14 94 08/27/19 14:04 96 08/27/19 14:00 164/82 08/27/19 13:39 20 08/27/19 13:33 97 F L 91 20 164/82 Pulse Ox 08/28/19 11:51 08/28/19 11:39 08/28/19 07:47 08/28/19 07:33 93 L 08/28/19 06:50 96 08/28/19 00:56 95 08/28/19 00:19 08/28/19 00:09 08/27/19 20:19 08/27/19 20:03 08/27/19 19:01 90 L 08/27/19 16:31 08/27/19 16:20 94 L 08/27/19 15:51 89 L 08/27/19 15:37 95 08/27/19 15:00 94 L 08/27/19 14:30 95 08/27/19 14:14 08/27/19 14:04 08/27/19 14:00 95 08/27/19 13:39 08/27/19 13:33 96 Intake and Output 08/27/19 08/28/19 08/28/19 22:59 06:59 14:59 Intake Total 720 540 320 Balance 720 540 320 Intake: Oral 720 540 320 GENERAL EXAM: Alert, pleasant 68-year-old white female,5 L of oxygen, comfortable in no apparent distress. HEAD: Normocephalic/atraumatic. EYES: Normal reaction of pupils, equal size. Conjunctiva pink, sclera white. NOSE: Clear with pink turbinates. THROAT: No erythema or exudates. NECK: No masses, no JVD, no thyroid enlargement, no adenopathy. CHEST: No chest wall deformity. Symmetrical expansion. LUNGS: Equal air entry with scattered bibasilar crackles and diminished breath sounds at the bases CVS: Regular rate and rhythm, normal S1 and S2, no gallops, no murmurs, no rubs ABDOMEN: Soft, nontender. No hepatosplenomegaly, normal bowel sounds, no guarding or rigidity. EXTREMITIES: No clubbing, no edema, no cyanosis, 2+ pulses and upper and lower extremities. MUSCULOSKELETAL: Muscle strength and tone normal. SPINE: No scoliosis or deformity SKIN: No rashes CENTRAL NERVOUS SYSTEM: Alert and oriented -3. No focal deficits, tone is normal in all 4 extremities. PSYCHIATRIC: Alert and oriented -3. Appropriate affect. Intact judgment and insight. Results - Laboratory Findings CBC and BMP: 08/28/19 06:36 08/28/19 06:36 ABG ABG pH 7.32 (7.35-7.45) L 08/28/19 11:39 ABG pCO2 53 mmHg (35-45) H 08/28/19 11:39 ABG pO2 73 mmHg (83-108) L 08/28/19 11:39 ABG O2 Saturation 93.9 % (94-97) L 08/28/19 11:39 Abnormal lab findings: Abnormal Labs 08/27/19 08/27/19 08/27/19 13:53 13:53 16:51 Hgb 10.7 L Hct MCV 75.8 L MCH 22.7 L MCHC 30.0 L RDW 16.4 H Plt Count Neutrophils # 7.9 H Lymphocytes # 0.3 L ABG pH ABG pCO2 ABG pO2 ABG HCO3 ABG Total CO2 ABG O2 Saturation Potassium 5.2 H Carbon Dioxide 31 H BUN 54 H Creatinine 1.33 H Glucose 144 H POC Glucose (mg/dL) 194 H Total Protein 5.4 L Albumin 3.3 L 08/27/19 08/27/19 08/28/19 20:16 23:27 01:05 Hgb Hct MCV MCH MCHC RDW Plt Count Neutrophils # Lymphocytes # ABG pH ABG pCO2 ABG pO2 ABG HCO3 ABG Total CO2 ABG O2 Saturation Potassium Carbon Dioxide BUN Creatinine Glucose POC Glucose (mg/dL) 445 H 485 H 407 H Total Protein Albumin 08/28/19 08/28/19 08/28/19 06:36 06:36 06:49 Hgb 9.9 L Hct 33.7 L MCV 77.9 L MCH 22.9 L MCHC 29.3 L RDW 15.8 H Plt Count 139 L Neutrophils # Lymphocytes # 0.2 L ABG pH ABG pCO2 ABG pO2 ABG HCO3 ABG Total CO2 ABG O2 Saturation Potassium Carbon Dioxide BUN 49 H Creatinine 1.24 H Glucose 308 H POC Glucose (mg/dL) 299 H Total Protein Albumin 08/28/19 08/28/19 11:39 11:44 Hgb Hct MCV MCH MCHC RDW Plt Count Neutrophils # Lymphocytes # ABG pH 7.32 L ABG pCO2 53 H ABG pO2 73 L ABG HCO3 28 H ABG Total CO2 29 H ABG O2 Saturation 93.9 L Potassium Carbon Dioxide BUN Creatinine Glucose POC Glucose (mg/dL) 260 H Total Protein Albumin - Diagnostic Findings Chest x-ray: report reviewed, image reviewed Assessment and Plan Plan: Assessment: #1. Acute exacerbation of chronic obstructive pulmonary disease and resolving left lung pneumonia #2. Acute on chronic hypoxemic respiratory failure related to the above and acute hypercapnic respiratory failure requiring BiPAP therapy, currently back on nasal cannula and doing well #3. Recent hospitalization for pneumonia, she was discharged home on Levaquin on 08/26/2019, and prior to that she also had a hospitalization for acute commu nity acquired pneumonia involving bilateral lower lobes and at that time patient was treated with clindamycin and cefepime #4. History of stage III COPD, with the baseline FEV1 of 0.76 L or 35% of p redicted with severe diffusion abnormality, she is on chronic home oxygen at 4 L #5. Morbid obesity with a BMI of 44.8 kg/m #6. Diabetes mellitus type 2 #7. Hypothyroidism #8. Impaired performance and functional status secondary to poor lung function and multiple other chronic comorbidities #9. Acute kidney injury related to cardiorenal syndrome, nephrology has been consulted #10. Steroid-induced hyperglycemia Plan: Continue current medical treatment, continue Levaquin, chest x-ray has been reviewed, showing improving bilateral interstitial edema and infiltrates. Continue breathing treatments, continue IV steroids, clinically is stable, and gas was reviewed showing mild hypercapnic respiratory failure, mentation is alert and appropriate, this was done on 5 L of oxygen, normal patient wears 4-5 L and her concentrator at home will go up to 5 L, she is maintaining O2 sat at 94-95%. Continue to follow I performed a history & physical examination of the patient and discussed their management with my nurse practitioner, Amparo Crowder. I reviewed the nurse practitioner's note and agree with the documented findings and plan of care. Lung sounds are positive for diminished breath sounds. The findings and the impression was discussed with the patient. I attest to the documentation by the nurse practitioner. Time with Patient: Greater than 30
[2019-08-28 16:41] LABS: Glucose,Whole Blood 222 mg/dL (75-99)
[2019-08-28 20:18] LABS: Glucose,Whole Blood 215 mg/dL (75-99)
[2019-08-28] MEDS: INSULIN DETEMIR (LEVEMIR) 100 UNIT/ML SYR SQ SCH (20:26)
[2019-08-28] MEDS: MONTELUKAST 10 MG TAB PO SCH (20:26)
[2019-08-28] MEDS: PRAVASTATIN SODIUM 40 MG TAB PO SCH (20:26)
[2019-08-28] MEDS: SERTRALINE 50 MG TAB PO SCH (20:26)
--- NOTE | 2019-08-28 21:19 | P.HPIM ---
History of Present Illness H&P Date: 08/28/19 Chief Complaint: ana Moran is a 68 yo F with PMH of COPD on 4 L home O2, T2DM, HTN who was recently admitted for COPD exacerbation, had been complaining of cough and dy spnea along with upper respiratory congestion. She was initially admitted last week and treated with levaquin, IV and nebulized steroids. Pt did improve and was discharged home a few days ago on a steroid taper and oral levaquin. She states she continued to have a mildly productive cough at home and had experienced dyspnea with exertion including toileting and other ADLs so pt's daughter called Pulm office. They were told to go to the ED for evaluation, in the ED, pt was tachypneic and required 5 L O2, WBc 5k, CXR with improved judith infiltrates. Review of Systems All systems: negative Constitutional: Denies chills, Denies fever Eyes: denies blurred vision, denies pain Ears, nose, mouth and throat: Denies headache, Denies sore throat Cardiovascular: Denies chest pain, Denies shortness of breath Respiratory: Reports cough, Denies dyspnea Gastrointestinal: Denies abdominal pain, Denies diarrhea, Denies nausea, Denies vomiting Genitourinary: Denies dysuria, Denies hematuria Musculoskeletal: Denies myalgias Integumentary: Denies pruritus, Denies rash Neurological: Denies numbness, Denies weakness Psychiatric: Denies anxiety, Denies depression Endocrine: Denies fatigue, Denies weight change Past Medical History Past Medical History: COPD, Diabetes Mellitus, Hypertension Additional Past Medical History / Comment(s): ARDS secondary to pneumonia more than 10 years ago requiring tracheostomy tube insertion, COPD with established FEV1 of 41% of predicted, diabetes mellitus, hypertension, history of morbid obesity History of Any Multi-Drug Resistant Organisms: None Reported Past Surgical History: Cholecystectomy, Hysterectomy Past Anesthesia/Blood Transfusion Reactions: No Reported Reaction Past Psychological History: Anxiety Smoking Status: Former smoker Past Alcohol Use History: None Reported Past Drug Use History: None Reported - Past Family History Mother Family Medical History: Congestive Heart Failure (CHF), Diabetes Mellitus Additional Family Medical History / Comment(s): The patient's mother had congestion heart failure and diabetes mellitus in the father had Parkinson's disease. Medications and Allergies Home Medications Medication Instructions Recorded Confirmed Type Albuterol Sulfate [Proair Hfa] 1 - 2 puff INHALATION RT-Q6H PRN 05/22/19 08/27/19 History Budesonide/Formoterol Fumarate 2 puff INHALATION RT-BID 05/22/19 08/27/19 History [Symbicort 160-4.5 Mcg Inhaler] Levothyroxine Sodium [Synthroid] 88 mcg PO DAILY 05/22/19 08/27/19 History Montelukast [Singulair] 10 mg PO HS 05/22/19 08/27/19 History Pravastatin Sodium [Pravachol] 40 mg PO HS 05/22/19 08/27/19 History Sertraline [Zoloft] 150 mg PO HS 05/22/19 08/27/19 History Thyroid,Pork [[employer] Thyroid] 30 mg PO DAILY 05/22/19 08/27/19 History Tiotropium 18 Mcg/Puff [Spiriva] 1 cap INHALATION RT-DAILY 05/22/19 08/27/19 History amLODIPine [Norvasc] 10 mg PO DAILY 05/22/19 08/27/19 History glipiZIDE [Glucotrol] 10 mg PO AC-BID 05/22/19 08/27/19 History Ipratropium-Albuterol Nebulize 3 ml INHALATION RT-QID 08/23/19 08/27/19 History [Duoneb 0.5 mg-3 mg/3 ml Soln] Levofloxacin [Levaquin] 750 mg PO DAILY #2 tab 08/26/19 08/27/19 Rx Lisinopril [Zestril] 20 mg PO DAILY #30 tab 08/26/19 08/27/19 Rx Insulin Glargine [Lantus] See Protocol SQ HS 08/27/19 08/27/19 History predniSONE See Taper PO DIRECTED 08/27/19 08/27/19 History Allergies Allergy/AdvReac Type Severity Reaction Status Date / Time Penicillins Allergy Anaphylaxis Verified 08/27/19 15:55 zolpidem [From Ambien] AdvReac Confusion Verified 08/27/19 15:55 Physical Exam Vitals: Vital Signs Temp Pulse Pulse Resp BP Pulse Ox 08/28/19 20:07 96 08/28/19 19:53 95 08/28/19 19:04 98.5 F 95 15 160/77 93 L 08/28/19 16:08 97 08/28/19 15:58 95 08/28/19 14:44 98.3 F 97 15 175/72 94 L 08/28/19 11:51 97 08/28/19 11:39 104 H 08/28/19 07:47 95 08/28/19 07:33 98 93 L 08/28/19 06:50 97.6 F 92 17 159/68 96 08/28/19 00:56 98.3 F 103 H 16 170/64 95 08/28/19 00:19 92 08/28/19 00:09 90 Intake and Output 08/28/19 08/28/19 08/28/19 06:59 14:59 22:59 Intake Total 540 640 180 Balance 540 640 180 Intake: Oral 540 640 180 Other: # Voids 2 1 General: well nourished, well developed, NAD. Obese. Vitals reviewed Eyes: PERRL, EOMI, conjunctiva normal HENT: normocephalic, mucus membranes moist Neck: supple, no JVD Lungs: Diminished air entry, expiratory wheezing, no rales or rhonchi CV: Regular rate and rhythm, no murmur. Peripheral pulses 2+ Abdomen: soft, nondistended, no organomegaly Lymph: no cervical or axillary LAD Skin: warm and dry. Neuro: A&Ox3, normal mood and affect Results CBC & Chem 7: 08/28/19 06:36 08/28/19 06:36 Labs: Abnormal Lab Results - Last 24 Hours (Table) 08/27/19 08/28/19 08/28/19 Range/Units 23:27 01:05 06:36 Hgb 9.9 L (11.4-16.0) gm/dL Hct 33.7 L (34.0-46.0) % MCV 77.9 L (80.0-100.0) fL MCH 22.9 L (25.0-35.0) pg MCHC 29.3 L (31.0-37.0) g/dL RDW 15.8 H (11.5-15.5) % Plt Count 139 L (150-450) k/uL Lymphocytes # 0.2 L (1.0-4.8) k/uL ABG pH (7.35-7.45) ABG pCO2 (35-45) mmHg ABG pO2 (83-108) mmHg ABG HCO3 (21-25) mmol/L ABG Total CO2 (19-24) mmol/L ABG O2 Saturation (94-97) % BUN (7-17) mg/dL Creatinine (0.52-1.04) mg/dL Glucose (74-99) mg/dL POC Glucose (mg/dL) 485 H 407 H (75-99) mg/dL 08/28/19 08/28/19 08/28/19 Range/Units 06:36 06:49 11:39 Hgb (11.4-16.0) gm/dL Hct (34.0-46.0) % MCV (80.0-100.0) fL MCH (25.0-35.0) pg MCHC (31.0-37.0) g/dL RDW (11.5-15.5) % Plt Count (150-450) k/uL Lymphocytes # (1.0-4.8) k/uL ABG pH 7.32 L (7.35-7.45) ABG pCO2 53 H (35-45) mmHg ABG pO2 73 L (83-108) mmHg ABG HCO3 28 H (21-25) mmol/L ABG Total CO2 29 H (19-24) mmol/L ABG O2 Saturation 93.9 L (94-97) % BUN 49 H (7-17) mg/dL Creatinine 1.24 H (0.52-1.04) mg/dL Glucose 308 H (74-99) mg/dL POC Glucose (mg/dL) 299 H (75-99) mg/dL 08/28/19 08/28/19 08/28/19 Range/Units 11:44 16:34 20:16 Hgb (11.4-16.0) gm/dL Hct (34.0-46.0) % MCV (80.0-100.0) fL MCH (25.0-35.0) pg MCHC (31.0-37.0) g/dL RDW (11.5-15.5) % Plt Count (150-450) k/uL Lymphocytes # (1.0-4.8) k/uL ABG pH (7.35-7.45) ABG pCO2 (35-45) mmHg ABG pO2 (83-108) mmHg ABG HCO3 (21-25) mmol/L ABG Total CO2 (19-24) mmol/L ABG O2 Saturation (94-97) % BUN (7-17) mg/dL Creatinine (0.52-1.04) mg/dL Glucose (74-99) mg/dL POC Glucose (mg/dL) 260 H 222 H 215 H (75-99) mg/dL Assessment and Plan (1) COPD (chronic obstructive pulmonary disease) Current Visit: Yes Status: Acute Code(s): J44.9 - CHRONIC OBSTRUCTIVE PULMONARY DISEASE, UNSPECIFIED SNOMED Code(s): 12251980 (2) Acute and chronic respiratory failure with hypoxia Current Visit: No Status: Acute Code(s): J96.21 - ACUTE AND CHRONIC RESPIRATORY FAILURE WITH HYPOXIA SNOMED Code(s): 41411904 (3) COPD exacerbation Current Visit: No Status: Acute Code(s): J44.1 - CHRONIC OBSTRUCTIVE PULMONARY DISEASE W (ACUTE) EXACERBATION SNOMED Code(s): 540198596 (4) Chronic kidney disease, stage 3 Current Visit: No Status: Acute Code(s): N18.3 - CHRONIC KIDNEY DISEASE, STAGE 3 (MODERATE) SNOMED Code(s): 313936095 (5) Hypothyroid Current Visit: No Status: Acute Code(s): E03.9 - HYPOTHYROIDISM, UNSPECIFIED SNOMED Code(s): 25292978 (6) Type 2 diabetes mellitus Current Visit: No Status: Acute Code(s): E11.9 - TYPE 2 DIABETES MELLITUS WITHOUT COMPLICATIONS SNOMED Code(s): 72601308 Plan: 1. Acute/chronic resp failure secondary to COPD exacerbation. Continue oral levaquin. Resume IV and nebulized steroids. phyllis Olsonex. Pulmonary consult 2. T2DM. Inc levemir to 70 U. accucheck/sliding scale 3. HTN. Continue home meds DVT prophylaxis heparin
[2019-08-28] MEDS: HEPARIN SODIUM,PORCINE 5,000 UNIT/ML 1 ML VIAL SQ SCH (21:30)
[2019-08-29] MEDS: LEVOTHYROXINE 88 MCG TAB PO SCH (05:09)
[2019-08-29] MEDS: methylPREDNISolone SOD SUCCI 125 MG/2 ML VIAL IV SCH ×4 (05:09→23:05)
[2019-08-29 06:06] LABS: Glucose,Whole Blood 149 mg/dL (75-99)
[2019-08-29 06:52] LABS: Glucose,Whole Blood 129 mg/dL (75-99)
[2019-08-29] MEDS: INSULIN ASPART (NovoLOG) 100 UNIT/ML VIAL SQ SCH ×7 (06:52→20:37)
[2019-08-29] MEDS: THYROID, PORK 30 MG TAB PO SCH (07:19)
[2019-08-29] MEDS: amLODIPine 10 MG TAB PO SCH (07:19)
[2019-08-29] MEDS: LISINOPRIL 20 MG TAB PO SCH (07:19)
[2019-08-29] MEDS: HEPARIN SODIUM,PORCINE 5,000 UNIT/ML 1 ML VIAL SQ SCH ×2 (07:19→20:38)
[2019-08-29] MEDS: BUDESONIDE 1 MG/2 ML NEBU INHALATION SCH ×2 (07:25→20:45)
[2019-08-29] MEDS: IPRATROPIUM-ALBUTEROL 3 ML NEB INHALATION SCH ×4 (07:25→20:45)
[2019-08-29 07:27] LABS: Anisocytosis Slight; Basophils # (A) 0.1 k/uL (0-0.2); Basophils % (A) 1 %; Eosinophils % (A) 0 %; HCT 37.8 % (34.0-46.0); HGB 11.1 gm/dL (11.4-16.0); Hypochromasia Marked; Lymphocytes # (A) 0.2 k/uL (1.0-4.8); Lymphocytes % (A) 2 %; MCH 22.6 pg (25.0-35.0); MCHC 29.4 g/dL (31.0-37.0); MCV 76.7 fL (80.0-100.0); Mean Platelet Volume 6.7; Microcytosis Slight; Monocytes # (A) 0.3 k/uL (0-1.0); Monocytes % (A) 4 %; Neutrophils # (A) 8.5 k/uL (1.3-7.7); Neutrophils % (A) 92 %; Platelet Count 187 k/uL (150-450); RBC 4.93 m/uL (3.80-5.40); RDW 16.4 % (11.5-15.5); WBC 9.2 k/uL (3.8-10.6)
[2019-08-29 07:50] LABS: Calcium 9.5 mg/dL (8.4-10.2)
[2019-08-29 11:53] LABS: Glucose,Whole Blood 158 mg/dL (75-99)
--- NOTE | 2019-08-29 13:12 | P.PN ---
Subjective Progress Note Date: 08/29/19 Principal diagnosis: Dyspnea, COPD This is 68-year-old patient of Dr. Banks with history of advanced COPD, on home oxygen usually at 4 L on a regular basis, her baseline FEV1 is 0.76 L or 35% of predicted, who was recently discharged on 06/26/2019 after being hospitalized for acute exacerbation of chronic obstructive pulmonary disease and pneumonia involving the left lung, and component of interstitial edema. Patient was doing well, likely improved, and was discharged home however last night and 08/27/2019 she had worsening of her symptoms and she came back to the emergency department for reevaluation, chest x-ray was completed showing improving bilateral interstitial edema and infiltrates, compared to her last chest x-ray. Lab work did not have any evidence of leukocytosis, with blood cell, was 5.4, hemoglobin was 9.9, electrolytes were within normal limits, B1 is 49 and creatinine was 1.24. Denied any fever or chills, hemodynamically she stable, her pulse ox is 96% on 5 L. Patient was discharged home on oral Levaquin, prednisone taper, and she is on Spiriva, Singulair, Symbicort and DuoNeb on a regular basis. Patient has been restarted on her Levaquin, she was started on IV steroids and breathing treatments and this morning where seen the patient in reevaluation for her shortness of breath, related to COPD and recent history of pneumonia On 08/29/2019 patient seen in follow-up on medical surgical floor. States her breathing is much improved, Fio2 is currently on 5 L and her pulse ox is 92-94%, will continue on the FiO2 down to 4 L. We talked to the patient about her blood gas yesterday, which showed adequate oxygenation on FiO2 of 40%, and patient was informed of that and it's okay for her to wear 4-5 L at home. No significant cough or congestion, breathing easier today, no acute issues overnight. She is complaining her oral course of Levaquin, she is on IV steroids, breathing treatments Objective - Vital Signs Vital signs: Vital Signs Temp 98.6 F 08/29/19 07:00 Pulse 95 08/29/19 11:22 Resp 20 08/29/19 07:00 BP 201/72 08/29/19 07:00 Pulse Ox 94 L 08/29/19 07:25 Intake & Output 08/28/19 08/29/19 08/29/19 18:59 06:59 18:59 Intake Total 820 540 Balance 820 540 Intake: Oral 820 540 Other: # Voids 2 1 - Exam GENERAL EXAM: Alert, pleasant 68-year-old white female,5 L of oxygen, comfortable in no apparent distress. HEAD: Normocephalic/atraumatic. EYES: Normal reaction of pupils, equal size. Conjunctiva pink, sclera white. NOSE: Clear with pink turbinates. THROAT: No erythema or exudates. NECK: No masses, no JVD, no thyroid enlargement, no adenopathy. CHEST: No chest wall deformity. Symmetrical expansion. LUNGS: Equal air entry with scattered bibasilar crackles and diminished breath sounds at the bases CVS: Regular rate and rhythm, normal S1 and S2, no gallops, no murmurs, no rubs ABDOMEN: Soft, nontender. No hepatosplenomegaly, normal bowel sounds, no guard ing or rigidity. EXTREMITIES: No clubbing, no edema, no cyanosis, 2+ pulses and upper and lower extremities. MUSCULOSKELETAL: Muscle strength and tone normal. SPINE: No scoliosis or deformity SKIN: No rashes CENTRAL NERVOUS SYSTEM: Alert and oriented -3. No focal deficits, tone is normal in all 4 extremities. PSYCHIATRIC: Alert and oriented -3. Appropriate affect. Intact judgment and insight. - Labs CBC & Chem 7: 08/29/19 06:27 08/29/19 06:27 Labs: Abnormal Lab Results - Last 24 Hours (Table) 08/28/19 08/28/19 08/29/19 Range/Units 16:34 20:16 05:59 Hgb (11.4-16.0) gm/dL MCV (80.0-100.0) fL MCH (25.0-35.0) pg MCHC (31.0-37.0) g/dL RDW (11.5-15.5) % Neutrophils # (1.3-7.7) k/uL Lymphocytes # (1.0-4.8) k/uL Carbon Dioxide (22-30) mmol/L BUN (7-17) mg/dL Creatinine (0.52-1.04) mg/dL Glucose (74-99) mg/dL POC Glucose (mg/dL) 222 H 215 H 149 H (75-99) mg/dL 08/29/19 08/29/19 08/29/19 Range/Units 06:27 06:27 06:50 Hgb 11.1 L (11.4-16.0) gm/dL MCV 76.7 L (80.0-100.0) fL MCH 22.6 L (25.0-35.0) pg MCHC 29.4 L (31.0-37.0) g/dL RDW 16.4 H (11.5-15.5) % Neutrophils # 8.5 H (1.3-7.7) k/uL Lymphocytes # 0.2 L (1.0-4.8) k/uL Carbon Dioxide 32 H (22-30) mmol/L BUN 45 H (7-17) mg/dL Creatinine 1.29 H (0.52-1.04) mg/dL Glucose 139 H (74-99) mg/dL POC Glucose (mg/dL) 129 H (75-99) mg/dL 08/29/19 Range/Units 11:52 Hgb (11.4-16.0) gm/dL MCV (80.0-100.0) fL MCH (25.0-35.0) pg MCHC (31.0-37.0) g/dL RDW (11.5-15.5) % Neutrophils # (1.3-7.7) k/uL Lymphocytes # (1.0-4.8) k/uL Carbon Dioxide (22-30) mmol/L BUN (7-17) mg/dL Creatinine (0.52-1.04) mg/dL Glucose (74-99) mg/dL POC Glucose (mg/dL) 158 H (75-99) mg/dL Assessment and Plan Plan: Assessment: #1. Acute exacerbation of chronic obstructive pulmonary disease and resolving left lung pneumonia #2. Acute on chronic hypoxemic respiratory failure related to the above and acute hypercapnic respiratory failure requiring BiPAP therapy, currently back on nasal cannula and doing well #3. Recent hospitalization for pneumonia, she was discharged home on Levaquin on 08/26/2019, and prior to that she also had a hospitalization for acute community acquired pneumonia involving bilateral lower lobes and at that time patient was treated with clindamycin and cefepime #4. History of stage III COPD, with the baseline FEV1 of 0.76 L or 35% of predicted with severe diffusion abnormality, she is on chronic home oxygen at 4 L #5. Morbid obesity with a BMI of 44.8 kg/m #6. Diabetes mellitus type 2 #7. Hypothyroidism #8. Impaired performance and functional status secondary to poor lung function and multiple other chronic comorbidities #9. Acute kidney injury related to cardiorenal syndrome, nephrology has been consulted #10. Steroid-induced hyperglycemia Plan: Patient remains stable, improving in terms of breathing, vital signs are stable, no fever or chills, FiO2 has been turned down to 4 L, patient was informed that it is okay for her to wear 4-5 L at home, she is completing her course of Levaquin, breathing treatments and IV Solu-Medrol, increase activity as tolerated, anticipate discharge home tomorrow I performed a history & physical examination of the patient and discussed their management with my nurse practitioner, Amparo Crowder. I reviewed the nurse practitioner's note and agree with the documented findings and plan of care. L seema sounds are positive for diminished breath sounds. The findings and the impression was discussed with the patient. I attest to the documentation by the nurse practitioner. Time with Patient: Less than 30
--- NOTE | 2019-08-29 14:40 | P.PN ---
Subjective Progress Note Date: 08/29/19 Nicole Moran is a 68 yo F with PMH of COPD on 4 L home O2, T2DM, HTN who was recently admitted for COPD exacerbation, had been complaining of cough and dyspnea along with upper respiratory congestion. She was initially admitted last week and treated with levaquin, IV and nebulized steroids. Pt did improve and was discharged home a few days ago on a steroid taper and oral levaquin. She states she continued to have a mildly productive cough at home and had experienced dyspnea with exertion including toileting and other ADLs so pt's daughter called Pulm office. They were told to go to the ED for evaluation, in the ED, pt was tachypneic and required 5 L O2, WBc 5k, CXR with improved judith infiltrates. 08/29/2019 maintained on nebulized bronchodilators, steroids, Levaquin.breathing improving, occasionalproductive cough with clear sputum, less wheezy today. Maintaining O2 sats in the 90s on 5 L nasal cannula.blood sugars better controlled.creatinine 1.29. Objective - Vital Signs Vital signs: Vital Signs Temp 98.6 F 08/29/19 07:00 Pulse 98 08/29/19 07:41 Resp 20 08/29/19 07:00 BP 201/72 08/29/19 07:00 Pulse Ox 94 L 08/29/19 07:25 Intake & Output 08/28/19 08/29/19 08/29/19 18:59 06:59 18:59 Intake Total 820 540 Balance 820 540 Intake: Oral 820 540 Other: # Voids 2 1 - Exam General: well nourished, well developed, NAD. Obese. Vitals reviewed Eyes: PERRL, EOMI, conjunctiva normal HENT: normocephalic, mucus membranes moist Neck: supple, no JVD Lungs: Diminished air entry, improving expiratory wheezing, no rales or rhonchi CV: Regular rate and rhythm, no murmur. Peripheral pulses 2+,decreased edema Abdomen: soft, nondistended, no organomegaly Lymph: no cervical or axillary LAD Skin: warm and dry. Neuro: A&Ox3, normal mood and affect - Labs CBC & Chem 7: 08/29/19 06:27 08/29/19 06:27 Labs: Abnormal Lab Results - Last 24 Hours (Table) 08/28/19 08/28/19 08/28/19 Range/Units 11:39 11:44 16:34 Hgb (11.4-16.0) gm/dL MCV (80.0-100.0) fL MCH (25.0-35.0) pg MCHC (31.0-37.0) g/dL RDW (11.5-15.5) % Neutrophils # (1.3-7.7) k/uL Lymphocytes # (1.0-4.8) k/uL ABG pH 7.32 L (7.35-7.45) ABG pCO2 53 H (35-45) mmHg ABG pO2 73 L (83-108) mmHg ABG HCO3 28 H (21-25) mmol/L ABG Total CO2 29 H (19-24) mmol/L ABG O2 Saturation 93.9 L (94-97) % Carbon Dioxide (22-30) mmol/L BUN (7-17) mg/dL Creatinine (0.52-1.04) mg/dL Glucose (74-99) mg/dL POC Glucose (mg/dL) 260 H 222 H (75-99) mg/dL 08/28/19 08/29/19 08/29/19 Range/Units 20:16 05:59 06:27 Hgb 11.1 L (11.4-16.0) gm/dL MCV 76.7 L (80.0-100.0) fL MCH 22.6 L (25.0-35.0) pg MCHC 29.4 L (31.0-37.0) g/dL RDW 16.4 H (11.5-15.5) % Neutrophils # 8.5 H (1.3-7.7) k/uL Lymphocytes # 0.2 L (1.0-4.8) k/uL ABG pH (7.35-7.45) ABG pCO2 (35-45) mmHg ABG pO2 (83-108) mmHg ABG HCO3 (21-25) mmol/L ABG Total CO2 (19-24) mmol/L ABG O2 Saturation (94-97) % Carbon Dioxide (22-30) mmol/L BUN (7-17) mg/dL Creatinine (0.52-1.04) mg/dL Glucose (74-99) mg/dL POC Glucose (mg/dL) 215 H 149 H (75-99) mg/dL 08/29/19 08/29/19 Range/Units 06:27 06:50 Hgb (11.4-16.0) gm/dL MCV (80.0-100.0) fL MCH (25.0-35.0) pg MCHC (31.0-37.0) g/dL RDW (11.5-15.5) % Neutrophils # (1.3-7.7) k/uL Lymphocytes # (1.0-4.8) k/uL ABG pH (7.35-7.45) ABG pCO2 (35-45) mmHg ABG pO2 (83-108) mmHg ABG HCO3 (21-25) mmol/L ABG Total CO2 (19-24) mmol/L ABG O2 Saturation (94-97) % Carbon Dioxide 32 H (22-30) mmol/L BUN 45 H (7-17) mg/dL Creatinine 1.29 H (0.52-1.04) mg/dL Glucose 139 H (74-99) mg/dL POC Glucose (mg/dL) 129 H (75-99) mg/dL Assessment and Plan Assessment: (1) COPD (chronic obstructive pulmonary disease) Current Visit: Yes Status: Acute Code(s): J44.9 - CHRONIC OBSTRUCTIVE PULMONARY DISEASE, UNSPECIFIED SNOMED Code(s): 39521756 (2) Acute and chronic respiratory failure with hypoxia Current Visit: No Status: Acute Code(s): J96.21 - ACUTE AND CHRONIC RESPIRATORY FAILURE WITH HYPOXIA SNOMED Code(s): 86660452 (3) COPD exacerbation Current Visit: No Status: Acute Code(s): J44.1 - CHRONIC OBSTRUCTIVE PULMONARY DISEASE W (ACUTE) EXACERBATION SNOMED Code(s): 847708126 (4) Chronic kidney disease, stage 3 Current Visit: No Status: Acute Code(s): N18.3 - CHRONIC KIDNEY DISEASE, STAGE 3 (MODERATE) SNOMED Code(s): 487544927 (5) Hypothyroid Current Visit: No Status: Acute Code(s): E03.9 - HYPOTHYROIDISM, UNSPECIFIED SNOMED Code(s): 90095904 (6) Type 2 diabetes mellitus,steroid-induced hyperglycemia, improving, Current Visit: No Status: Acute Code(s): E11.9 - TYPE 2 DIABETES MELLITUS WITHOUT COMPLICATIONS SNOMED Code(s): 02973087 (7) morbid obesity, BMI 46.1 plan: Continue on current medication regime ,monitoring and symptomatic treatment.weaning of oxygen in progress. Increase ambulation as tolerated. Maintain nebulized bronchodilators, steroids, antibiotics. Discharge planning in progress for potentially tomorrow.evaluated by a physical therapy with home care recommended at discharge. The impression and plan of care has been dictated as directed. : I performed a history and examination of this patient, discussed the same with the dictator. I agree with the dictator's note ,documented as a scribe. Any additional findings or plans will be noted.
[2019-08-29 16:59] LABS: Glucose,Whole Blood 265 mg/dL (75-99)
[2019-08-29 20:18] LABS: Glucose,Whole Blood 294 mg/dL (75-99)
[2019-08-29] MEDS: MONTELUKAST 10 MG TAB PO SCH (20:37)
[2019-08-29] MEDS: SERTRALINE 50 MG TAB PO SCH (20:37)
[2019-08-29] MEDS: INSULIN DETEMIR (LEVEMIR) 100 UNIT/ML SYR SQ SCH (20:37)
[2019-08-29] MEDS: PRAVASTATIN SODIUM 40 MG TAB PO SCH (20:37)
[2019-08-30] MEDS: methylPREDNISolone SOD SUCCI 125 MG/2 ML VIAL IV SCH ×2 (05:27→11:56)
[2019-08-30] MEDS: LEVOTHYROXINE 88 MCG TAB PO SCH (05:27)
[2019-08-30] MEDS ORDERED: INSULIN DETEMIR (LEVEMIR) 100 UNIT/ML SYR SQ SCH (06:11)
[2019-08-30 07:05] LABS: Basophils % (A) 0 %; Eosinophils % (A) 0 %; HCT 34.9 % (34.0-46.0); HGB 10.5 gm/dL (11.4-16.0); Hypochromasia Marked; Lymphocytes # (A) 0.1 k/uL (1.0-4.8); Lymphocytes % (A) 2 %; MCH 23.3 pg (25.0-35.0); MCHC 30.1 g/dL (31.0-37.0); MCV 77.5 fL (80.0-100.0); Mean Platelet Volume 6.4; Microcytosis Slight; Monocytes # (A) 0.2 k/uL (0-1.0); Monocytes % (A) 3 %; Neutrophils % (A) 95 %; Platelet Count 154 k/uL (150-450); RDW 15.8 % (11.5-15.5); WBC 7.4 k/uL (3.8-10.6)
[2019-08-30 07:18] LABS: Calcium 9.2 mg/dL (8.4-10.2); Potassium 5.2 mmol/L (3.5-5.1)
[2019-08-30 07:28] LABS: Glucose,Whole Blood 299 mg/dL (75-99)
[2019-08-30] MEDS: IPRATROPIUM-ALBUTEROL 3 ML NEB INHALATION SCH ×2 (07:36→10:56)
[2019-08-30] MEDS: BUDESONIDE 1 MG/2 ML NEBU INHALATION SCH (07:36)
[2019-08-30] MEDS: INSULIN ASPART (NovoLOG) 100 UNIT/ML VIAL SQ SCH ×4 (07:56→11:57)
[2019-08-30] MEDS: THYROID, PORK 30 MG TAB PO SCH (07:57)
[2019-08-30] MEDS: amLODIPine 10 MG TAB PO SCH (07:57)
[2019-08-30] MEDS: HEPARIN SODIUM,PORCINE 5,000 UNIT/ML 1 ML VIAL SQ SCH (07:58)
[2019-08-30] MEDS: LISINOPRIL 20 MG TAB PO SCH (07:58)
[2019-08-30 08:04] VITALS: BP 176/85; RESP 14; TEMP 97.9
[2019-08-30] MEDS ORDERED: LEVOFLOXACIN 750 MG TAB PO SCH (09:00)
--- NOTE | 2019-08-30 10:39 | P.PN ---
Subjective Progress Note Date: 08/30/19 Principal diagnosis: Acute exacerbation of chronic obstructive pulmonary disease, oxygen dependent his is 68-year-old patient of Dr. Banks with history of advanced COPD, on dottie e oxygen usually at 4 L on a regular basis, her baseline FEV1 is 0.76 L or 35% of predicted, who was recently discharged on 06/26/2019 after being hospitalized for acute exacerbation of chronic obstructive pulmonary disease and pneumonia involving the left lung, and component of interstitial edema. Patient was doing well, likely improved, and was discharged home however last night and 08/27/2019 she had worsening of her symptoms and she came back to the emergency department for reevaluation, chest x-ray was completed showing improving bilateral interstitial edema and infiltrates, compared to her last chest x-ray. Lab work did not have any evidence of leukocytosis, with blood cell, was 5.4, hemoglobin was 9.9, electrolytes were within normal limits, B1 is 49 and creatinine was 1.24. Denied any fever or chills, hemodynamically she stable, her pulse ox is 96% on 5 L. Patient was discharged home on oral Levaquin, prednisone taper, and she is on Spiriva, Singulair, Symbicort and DuoNeb on a regular basis. Patient has been restarted on her Levaquin, she was started on IV steroids and breathing treatments and this morning where seen the patient in reevaluation for her shortness of breath, related to COPD and recent history of pneumonia On 08/29/2019 patient seen in follow-up on medical surgical floor. States her breathing is much improved, Fio2 is currently on 5 L and her pulse ox is 92-94%, will continue on the FiO2 down to 4 L. We talked to the patient about her blood gas yesterday, which showed adequate oxygenation on FiO2 of 40%, and patient was informed of that and it's okay for her to wear 4-5 L at home. No significant cough or congestion, breathing easier today, no acute issues overnight. She is complaining her oral course of Levaquin, she is on IV steroids, breathing treatments The patient is seen today 08/30/2019 in follow-up on the regular medical floor. She is currently sitting up in bed. Awake and alert in no acute distress. Breathing easier today as compared to yesterday. Maintaining good O2 saturations in the mid 90s on 4 L/m per nasal cannula. She's afebrile. White count 7.4. Hemoglobin 10.5. Creatinine 1.17. She remains on DuoNeb inh alations, Pulmicort inhalations, IV Solu-Medrol. Empiric antibiotics in the form of Levaquin. Objective - Vital Signs Vital signs: Vital Signs Temp 97.9 F 08/30/19 07:00 Pulse 98 08/30/19 08:00 Resp 14 08/30/19 08:00 BP 176/85 08/30/19 07:00 Pulse Ox 94 L 08/30/19 07:36 Intake & Output 08/29/19 08/30/19 08/30/19 18:59 06:59 18:59 Intake Total 350 Balance 350 Intake: Oral 350 Other: # Voids 3 2 1 # Bowel Movements 1 1 - Exam GENERAL EXAM: Alert, pleasant 68-year-old female patient, on 4L of oxygen, comfortable in no apparent distress. HEAD: Normocephalic/atraumatic. EYES: Normal reaction of pupils, equal size. Conjunctiva pink, sclera white. NOSE: Clear with pink turbinates. THROAT: No erythema or exudates. NECK: No masses, no JVD, no thyroid enlargement, no adenopathy. CHEST: No chest wall deformity. Symmetrical expansion. LUNGS: Equal air entry with scattered bibasilar crackles and diminished breath sounds at the bases CVS: Regular rate and rhythm, normal S1 and S2, no gallops, no murmurs, no rubs ABDOMEN: Soft, nontender. No hepatosplenomegaly, normal bowel sounds, no guarding or rigidity. EXTREMITIES: No clubbing, no edema, no cyanosis, 2+ pulses and upper and lower extremities. MUSCULOSKELETAL: Muscle strength and tone normal. SPINE: No scoliosis or deformity SKIN: No rashes CENTRAL NERVOUS SYSTEM: No focal deficits, tone is normal in all 4 extremities. PSYCHIATRIC: Alert and oriented -3. Appropriate affect. Intact judgment and insight. - Labs CBC & Chem 7: 08/30/19 06:17 08/30/19 06:17 Labs: Abnormal Lab Results - Last 24 Hours (Table) 08/29/19 08/29/19 08/29/19 Range/Units 11:52 16:58 20:17 Hgb (11.4-16.0) gm/dL MCV (80.0-100.0) fL MCH (25.0-35.0) pg MCHC (31.0-37.0) g/dL RDW (11.5-15.5) % Lymphocytes # (1.0-4.8) k/uL Potassium (3.5-5.1) mmol/L Carbon Dioxide (22-30) mmol/L BUN (7-17) mg/dL Creatinine (0.52-1.04) mg/dL Glucose (74-99) mg/dL POC Glucose (mg/dL) 158 H 265 H 294 H (75-99) mg/dL 08/30/19 08/30/19 08/30/19 Range/Units 06:17 06:17 07:23 Hgb 10.5 L (11.4-16.0) gm/dL MCV 77.5 L (80.0-100.0) fL MCH 23.3 L (25.0-35.0) pg MCHC 30.1 L (31.0-37.0) g/dL RDW 15.8 H (11.5-15.5) % Lymphocytes # 0.1 L (1.0-4.8) k/uL Potassium 5.2 H (3.5-5.1) mmol/L Carbon Dioxide 31 H (22-30) mmol/L BUN 48 H (7-17) mg/dL Creatinine 1.17 H (0.52-1.04) mg/dL Glucose 330 H (74-99) mg/dL POC Glucose (mg/dL) 299 H (75-99) mg/dL Assessment and Plan Assessment: #1. Acute exacerbation of chronic obstructive pulmonary disease and resolving left lung pneumonia, currently on Levaquin #2. Acute on chronic hypoxemic respiratory failure related to the above and acute hypercapnic respiratory failure requiring BiPAP therapy, currently back on nasal cannula and doing well #3. Recent hospitalization for pneumonia, she was discharged home on Levaquin on 08/26/2019, and prior to that she also had a hospitalization for acute community acquired pneumonia involving bilateral lower lobes and at that time patient was treated with clindamycin and cefepime #4. History of stage III COPD, with the baseline FEV1 of 0.76 L or 35% of predicted with severe diffusion abnormality, she is on chronic home oxygen at 4 L #5. Morbid obesity with a BMI of 44.8 kg/m #6. Diabetes mellitus type 2 #7. Hypothyroidism #8. Impaired performance and functional status secondary to poor lung function and multiple other chronic comorbidities #9. Acute kidney injury related to cardiorenal syndrome, nephrology has been consulted #10. Steroid-induced hyperglycemia Plan: The patient was seen and evaluated by Dr. Mazariegos. She is stable and back to her baseline as far as her pulmonary status is concerned. Upon discharge she'll complete prednisone burst and taper. Complete course of antibiotics. Follow-up in our office in 1-2 weeks' time. She is encouraged to call sooner with any recurrence of symptoms or other questions or concerns. I, the cosigning physician, performed a history & physical examination of the patient. Lungs sounds with few crackles in the posterior bases, diminished Maintaining good O2 saturations in the 90s on 4 L/m per nasal cannula. I discussed the assessment and plan of care with my nurse practitioner, Leslee Lombardi. I attest to the above note as dictated by her.
[2019-08-30 11:08] VITALS: PULSE 102
[2019-08-30 11:18] LABS: Glucose,Whole Blood 239 mg/dL (75-99)
[2019-08-30] MEDS ORDERED: FUROSEMIDE 10 MG/ML 4 ML VIAL IV STA (11:46)
--- NOTE | 2019-08-30 22:44 | DS ---
DISCHARGE SUMMARY DATE OF SERVICE: 08/30/2019. FINAL DIAGNOSES: 1. Chronic obstructive pulmonary disease exacerbation with acute purulent tracheobronchitis. 2. Acute on chronic hypoxic respiratory failure. 3. Chronic kidney disease stage III. 4. Hypothyroidism. 5. Diabetes mellitus type 2. 6. Steroid induced hypoglycemia. DISCHARGE DISPOSITION: The patient will be discharged in stable condition with guarded prognosis. HISTORY OF PRESENT ILLNESS: This 68-year-old woman with a past medical history of multiple medical problems admitted with COPD exacerbation as well as acute purulent tracheobronchitis. Patient treated with IV steroids and other medications. Dr. Mazariegos saw the patient. Patient improved significantly. Patient is keen on going home at this time. The patient also had nebulizers and as well as home O2 at home. On exam, vitals signs are stable. Cardiovascular: S1, S2 muffled. Respirations: Few scattered rhonchi. Mild generalized edema present. IV Lasix being given for the same. DISCHARGE ADVICE AND MEDICATIONS: 1. Diet is cardiac diet. 2. Activity limited until followup. 3. Follow up with Dr. Rhianna Salas in 1-2 days. 4. Follow up with in 2-3 days. DISCHARGE MEDICATIONS: 1. DuoNeb q.i.d. and p.r.n. 2. Glucotrol 10 mg a.c. b.i.d. 3. Lantus q.h.s. 4. Norvasc 10 mg p.o. daily. 5. 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 daily. 6. Pravachol 40 mg q.h.s. 7. Prednisone taper. 8. Albuterol 1-2 puffs q.6h p.r.n. 9. Singulair 10 mg q.h.s. 10.Spiriva 18 mcg daily. 11.Symbicort 160/4.5 two puffs b.i.d. 12.Synthroid 88 mcg p.o. daily. 13.Zoloft 150 mg q.h.s. 14.Levaquin 750 mg p.o. daily for 2 more days. 15.Prednisone taper so that will be 40 mg daily for 3 days, 30 for 3 days, 20 for 3 days and then 10 for 3 days. 16.Singulair 10 mg q.h.s. 17.Lisinopril 20 mg p.o. daily. Once again, the patient will be discharged in stable condition with guarded prognosis. MMODL / IJN: [id number] / MTDD
== END 2019-08-30 14:43 | disposition home health service (06) | DRG 190 ==
LOC: EC 13:31 → 4SSUR 15:05 → OBSVTOIN 08-28 12:13
PROVIDERS: ADMIT Family Medicine; ATTEND Family Medicine
DX: J44.1 Chronic obstructive pulmonary disease with (acute) exacerbation (principal); J96.22 Acute and chronic respiratory failure with hypercapnia; J96.21 Acute and chronic respiratory failure with hypoxia; Z68.42 Body mass index [BMI] 45.0-49.9, adult; N17.9 Acute kidney failure, unspecified; E03.9 Hypothyroidism, unspecified; E11.22 Type 2 diabetes mellitus with diabetic chronic kidney disease; E11.649 Type 2 diabetes mellitus with hypoglycemia without coma; T38.0X5A Adverse effect of glucocorticoids and synthetic analogues, initial encounter; N18.3 Chronic kidney disease, stage 3 (moderate); I13.10 Hypertensive heart and chronic kidney disease without heart failure, with stage 1 through stage 4 chronic kidney disease, or unspecified chronic kidney disease; F41.9 Anxiety disorder, unspecified; E11.65 Type 2 diabetes mellitus with hyperglycemia; E66.01 Morbid (severe) obesity due to excess calories; Z82.49 Family history of ischemic heart disease and other diseases of the circulatory system; Z79.899 Other long term (current) drug therapy; Z79.52 Long term (current) use of systemic steroids; Z79.51 Long term (current) use of inhaled steroids; Z79.4 Long term (current) use of insulin; Z79.890 Hormone replacement therapy; Z82.0 Family history of epilepsy and other diseases of the nervous system; Z83.3 Family history of diabetes mellitus; Z87.01 Personal history of pneumonia (recurrent); Z87.891 Personal history of nicotine dependence; Z90.710 Acquired absence of both cervix and uterus; Z99.81 Dependence on supplemental oxygen
CPT/HCPCS: 36415; 36600; 71046; 80048; 80053; 82805; 83880; 85025; 94640; 94760; 96374; 99285

== ENCOUNTER 2020-01-16 18:23 | Emergency (ER) | payer MEDICARE ==
[2020-01-16 18:37] VITALS: RESP 18; TEMP 97.9
[2020-01-16] MEDS ORDERED: LIDOCAINE 1% INJ 10MG/ML (20 ML MDV) SQ ONE (18:51)
[2020-01-16] MEDS ORDERED: DIPH,PERTUS(ACELL)TETVAC-LF 0.5 ML VIAL IM ONE (18:52)
--- NOTE | 2020-01-16 18:55 | ED ---
General Adult HPI - General Chief complaint: Fall Stated complaint: fall, head injury Time Seen by Provider: 01/16/20 18:27 Source: patient, EMS, RN notes reviewed Mode of arrival: EMS Limitations: no limitations - History of Present Illness Initial comments: Patient is a pleasant 69-year-old female presenting to the emergency department following head injury. Incident occurred prior to arrival. Patient rolled over in bed and fell out. Patient landed with her head directly on the floor. Patient complains of moderate discomfort of the head. No loss of consciousness. No confusion. Patient states she also hit her right knee on the dog bowl. Patient did notice some mild bleeding there. Patient denies any neck or back pain. No chest or abdominal pain. No other area of injury. - Related Data Home Medications Medication Instructions Recorded Confirmed Albuterol Sulfate [Proair Hfa] 1 - 2 puff INHALATION RT-Q6H PRN 05/22/19 01/16/20 Budesonide/Formoterol Fumarate 2 puff INHALATION RT-BID 05/22/19 01/16/20 [Symbicort 160-4.5 Mcg Inhaler] Levothyroxine Sodium [Synthroid] 88 mcg PO DAILY 05/22/19 01/16/20 Montelukast [Singulair] 10 mg PO HS 05/22/19 01/16/20 Pravastatin Sodium [Pravachol] 40 mg PO HS 05/22/19 01/16/20 Sertraline [Zoloft] 100 mg PO HS 05/22/19 01/16/20 Thyroid,Pork [Gun Numberer Thyroid] 30 mg PO DAILY 05/22/19 01/16/20 Tiotropium 18 Mcg/Puff [Spiriva] 1 cap INHALATION RT-DAILY 05/22/19 01/16/20 amLODIPine [Norvasc] 10 mg PO DAILY 05/22/19 01/16/20 glipiZIDE [Glucotrol] 10 mg PO AC-BID 05/22/19 01/16/20 Insulin Glargine [Lantus] See Protocol SQ HS 08/27/19 01/16/20 Ipratropium-Albuterol Nebulize 3 ml INHALATION RT-QID 01/16/20 01/16/20 [Duoneb 0.5 mg-3 mg/3 ml Soln] Losartan [Cozaar] 25 mg PO DAILY 01/16/20 01/16/20 Allergies Allergy/AdvReac Type Severity Reaction Status Date / Time Penicillins Allergy Anaphylaxis Verified 01/16/20 19:04 zolpidem [From Ambien] AdvReac Confusion Verified 01/16/20 19:04 Review of Systems ROS Statement: Those systems with pertinent positive or pertinent negative responses have been documented in the HPI. ROS Other: All systems not noted in ROS Statement are negative. Constitutional: Denies: fever Eyes: Denies: eye pain ENT: Denies: ear pain Respiratory: Denies: cough, dyspnea Cardiovascular: Denies: chest pain Endocrine: Denies: fatigue Gastrointestinal: Denies: abdominal pain, nausea, vomiting Genitourinary: Denies: dysuria Musculoskeletal: Denies: back pain Skin: Denies: rash Neurological: Reports: headache. Denies: weakness, confusion Past Medical History Past Medical History: COPD, Diabetes Mellitus, Hypertension Additional Past Medical History / Comment(s): ARDS secondary to pneumonia more than 10 years ago requiring tracheostomy tube insertion, COPD with established FEV1 of 41% of predicted, diabetes mellitus, hypertension, history of morbid obe sity History of Any Multi-Drug Resistant Organisms: None Reported Past Surgical History: Cholecystectomy, Hysterectomy Past Anesthesia/Blood Transfusion Reactions: No Reported Reaction Past Psychological History: Anxiety Smoking Status: Former smoker Past Alcohol Use History: None Reported Past Drug Use History: None Reported - Past Family History Mother Family Medical History: Congestive Heart Failure (CHF), Diabetes Mellitus Additional Family Medical History / Comment(s): The patient's mother had congestion heart failure and diabetes mellitus in the father had Parkinson's disease. General Exam Limitations: no limitations General appearance: alert Head exam: Present: other (Forehead hematoma) Eye exam: Present: normal appearance, PERRL, EOMI ENT exam: Present: normal oropharynx Neck exam: Present: normal inspection, full ROM. Absent: tenderness Respiratory exam: Present: normal lung sounds bilaterally Cardiovascular Exam: Present: regular rate, normal rhythm GI/Abdominal exam: Present: soft. Absent: tenderness Extremities exam: Present: normal inspection, full ROM. Absent: tenderness Back exam: Present: normal inspection Neurological exam: Present: alert, oriented X3, CN II-XII intact. Absent: motor sensory deficit Expanded Neurological exam: Present: protecting the airway Patient oriented to: Present: person, place, time Speech: Present: fluid speech Cranial nerves: EOM's Intact: Normal Sensory exam: Upper Extremity Light Touch: Normal, Lower Extremity Light Touch: Normal Motor strength exam: RUE: 5, LUE: 5, RLE: 5, LLE: 5 Eye Response: (4) open spontaneously Motor Response: (6) obeys commands Verbal Response: (5) oriented Psychiatric exam: Present: normal affect, normal mood Skin exam: Present: other (Right knee laceration) Course Vital Signs 01/16/20 01/16/20 01/16/20 18:28 19:32 20:07 Temperature 97.9 F Pulse Rate 98 89 Respiratory 18 18 Rate Blood Pressure 190/100 193/101 199/92 O2 Sat by Pulse 96 96 96 Oximetry Procedures - Laceration Laceration #1 Consent Obtained: verbal consent Indication: laceration Site: lower extremity (Right anterior knee) Size (cm): 3 Description: linear Depth: simple, single layer Anesthetic Used: lidocaine 1% Anesthesia Technique: local infiltration Pre-repair: wound explored, irrigated extensively Type of Sutures: nylon Size of Sutures: 4-0 Number of Sutures: 4 Technique: simple, interrupted Patient Tolerated Procedure: well, no complications Medical Decision Making - Radiology Data Radiology results: report reviewed (Computed tomography scan of the brain shows no acute intercranial hemorrhage. Frontal scalp hematoma. Computed tomography scan of cervical spine shows no osseous abnormality. There is degenerative changes.) Disposition Clinical Impression: Head injury, Laceration Disposition: HOME SELF-CARE Condition: Stable Instructions (If sedation given, give patient instructions): Fall Prevention (ED), Laceration (ED), Head Injury (ED) Additional Instructions: Please follow-up with primary care physician in the next couple days for recheck. Ice to affected area. Suture removal in 12-14 days. Twice daily wash laceration gently with soap and water, antibiotic ointment, and bandage. Return for change in mental status, weakness or confusion, fevers, worsening symptoms, persistent vomiting, or any other concerns. Is patient prescribed a controlled substance at d/c from ED?: No Referrals: Sathish Banks MD [Primary Care Provider] - 1-2 days Time of Disposition: 20:33
[2020-01-16] MEDS ORDERED: MORPHINE SULFATE 2 MG/ML SYRINGE IVP STA (18:57)
[2020-01-16] MEDS ORDERED: ONDANSETRON 4 MG/2 ML VIAL IVP STA (19:11)
[2020-01-16 19:35] VITALS: PULSE 89
[2020-01-16] MEDS ORDERED: MORPHINE SULFATE 4 MG/ML SYRINGE IVP STA (19:46)
[2020-01-16] MEDS ORDERED: METOCLOPRAMIDE 5 MG/ML 2 ML VIAL IVP STA (19:46)
--- NOTE | 2020-01-16 19:49 | CT ---
EXAMINATION TYPE: CT brain eleazar wo con DATE OF EXAM: 01/16/2020 COMPARISON: None HISTORY: fall CT DLP: 1504.3 mGycm, Automated exposure control for dose reduction was used. CONTRAST: Patient injected with 0 mL of Isovue 300. CT of the brain is performed utilizing 3 mm thick sections through the posterior fossa and 3 mm thick sections through the remaining calvarium. Study is performed within 24 hours of arrival to the hospital. There is a very large hematoma over the frontal and right frontal region extending over the right sup raorbital region. No underlying fractures evident. No abnormal hyperdensity is present to suggest an acute intracranial hemorrhage. No mass lesion is evident. No acute infarcts are evident. No suspicious signal change within the brain is evident Ventricles and sulci are appropriate for the patient age. Paranasal sinuses and mastoid air cells within the [id number] are clear. IMPRESSIONS: 1. No acute intracranial process. 2. Very large hematoma over the frontal and right supraorbital region. CT cervical spine. COMPARISON: None CT of the cervical spine is performed in the axial plane at 2 mm thick sections. Reconstructed image s in the coronal, and sagittal plane are reviewed on the computer. No acute fractures are evident. There is some straightening of the cervical spine in the sagittal plane. The prevertebral space is no rmal. Disc space narrowing is noted C5-6 C6-7. Vertebral body heights are preserved. No spinal canal stenosis is evident. Uncovertebral joint hypertrophy is contributing to moderate foraminal narrowing bilaterally at C5-6 a nd to a mild degree at C6-7 on the left Facet hypertrophy is present at C3-4 on the left Are some minimal fluid in the inferior most portion of the left mastoid air cells on these images. No septal destruction is evident IMPRESSIONS: 1. No acute osseous abnormality. 2. Straightening of the cervical spine which can be related to patient positioning or muscle spasm. 3. Degenerative disc changes mid cervical spine. 4. Uncovertebral joint hypertrophy contributing to foraminal narrowing mid cervical spine
[2020-01-16] MEDS ORDERED: ACET/COD 300 MG/30 MG STARTER PACK 6 TAB BTL PO STA (20:32)
[2020-01-16] MEDS ORDERED: ONDANSETRON 4 MG ODT STARTER PACK 2 TAB BTL PO STA (20:32)
[2020-01-16 20:35] VITALS: BP 202/98
[2020-01-16] MEDS ORDERED: LOSARTAN 25 MG TAB PO STA (20:46)
== END 2020-01-16 21:39 | disposition home or self-care (01) ==
LOC: EC 18:23
DX: S09.90XA Unspecified injury of head, initial encounter (principal); S81.011A Laceration without foreign body, right knee, initial encounter; Z23 Encounter for immunization; J44.9 Chronic obstructive pulmonary disease, unspecified; E11.9 Type 2 diabetes mellitus without complications; I10 Essential (primary) hypertension; F41.9 Anxiety disorder, unspecified; Z79.51 Long term (current) use of inhaled steroids; Z79.890 Hormone replacement therapy; Z79.4 Long term (current) use of insulin; Z79.899 Other long term (current) drug therapy; Z88.0 Allergy status to penicillin; Z88.8 Allergy status to other drugs, medicaments and biological substances; Z87.891 Personal history of nicotine dependence; W06.XXXA Fall from bed, initial encounter
CPT/HCPCS: 72125; 70450; 90715; 99284; 12002; 90471; 96374; 96375 ×2; 96376; J2270 ×2; J2765; J2405; J2001; S0119

== ENCOUNTER 2021-12-16 14:08 | Inpatient (IN) | payer MEDICARE ==
[2021-12-16] MEDS ORDERED: methylPREDNISolone SOD SUCCI 125 MG/2 ML VIAL IV STA (16:03)
[2021-12-16] MEDS ORDERED: IPRATROPIUM-ALBUTEROL 3 ML NEB INHALATION STA (16:03)
[2021-12-16 16:23] LABS: Basophils % (A) 0 %; Eosinophils % (A) 0 %; HCT 31.1 % (34.0-46.0); HGB 9.1 gm/dL (11.4-16.0); Hypochromasia Marked; Lymphocytes # (A) 0.3 k/uL (1.0-4.8); Lymphocytes % (A) 5 %; MCH 23.9 pg (25.0-35.0); MCHC 29.3 g/dL (31.0-37.0); MCV 81.5 fL (80.0-100.0); Monocytes # (A) 0.3 k/uL (0-1.0); Monocytes % (A) 5 %; Neutrophils # (A) 6.1 k/uL (1.3-7.7); Neutrophils % (A) 89 %; Platelet Count 145 k/uL (150-450); RBC 3.81 m/uL (3.80-5.40); RDW 15.7 % (11.5-15.5); WBC 6.8 k/uL (3.8-10.6)
--- NOTE | 2021-12-16 16:32 | XR ---
EXAMINATION TYPE: XR chest 2V DATE OF EXAM: 12/16/2021 4:24 PM COMPARISON:Chest radiographs from 08/27/2019 TECHNIQUE: XR chest 2V Frontal and lateral views of the chest. CLINICAL INDICATION:Female, 71 years old with history of difficulty breathing; FINDINGS: Lungs/Pleura: No evidence of focal consolidation or pneumothorax. Blunting of the costophrenic angles is present. Pulmonary vascularity: Pulmonary vascular congestion. Heart/mediastinum: Cardiomediastinal silhouette is enlarged and stable. Musculoskeletal: No acute osseous pathology. Other findings: None IMPRESSION: Cardiomegaly, pulmonary vascular congestion and bilateral pleural effusions. Correlate with BNP for c ongestive heart failure.
[2021-12-16 16:42] LABS: INR 0.9 (<1.2); Partial Thromboplastin Time 26.2 sec (22.0-30.0); Prothrombin Time 10.3 sec (9.0-12.0)
[2021-12-16 16:45] LABS: Albumin 3.8 g/dL (3.5-5.0); Calcium 8.9 mg/dL (8.4-10.2); Magnesium 2.1 mg/dL (1.6-2.3); Potassium 4.3 mmol/L (3.5-5.1); Total Bilirubin 0.5 mg/dL (0.2-1.3); Total Protein 6.1 g/dL (6.3-8.2)
--- NOTE | 2021-12-16 17:36 | ED ---
SOB HPI - General Chief Complaint: Shortness of Breath Stated Complaint: SOB Time Seen by Provider: 12/16/21 14:30 Source: patient, EMS Mode of arrival: EMS - History of Present Illness Initial Comments: 71-year-old female past history of COPD, oxygen dependent presents to the em ergency department for shortness of breath. States that she follows with Dr. Fox in office. She had covid in September and daughter states that she has been declining since. She previously wore 5 L of oxygen via nasal cannula however since her September hospitalization she has turned her oxygen up to 9 L. Patient cannot move around without desaturating into the 70s. They deny that she has any previous cardiac history. She is not on any diuretics. She denies productive cough. Normally sees Dr. Cunningham. States that her last antibiotic and steroid use was last year. They called and spoke with Dr. Fox who recommended that they come into the emergency department due to the patient's progressive worsening symptoms. Does admit to history of DVT, PE however patient not currently on any anticoagulation. She has had some mild chest discomfort. No other alleviating, precipitating or modifying factors - Related Data Home Medications Medication Instructions Recorded Confirmed Albuterol Sulfate [Proair Hfa] 1 - 2 puff INHALATION RT-Q6H PRN 05/22/19 12/17/21 Levothyroxine Sodium [Synthroid] 88 mcg PO DAILY 05/22/19 12/17/21 Montelukast [Singulair] 10 mg PO HS 05/22/19 12/17/21 Pravastatin Sodium [Pravachol] 40 mg PO HS 05/22/19 12/17/21 Thyroid,Pork [Remedial Masseur Thyroid] 30 mg PO DAILY 05/22/19 12/17/21 amLODIPine [Norvasc] 10 mg PO DAILY 05/22/19 12/17/21 Budesonide [Pulmicort] 0.5 mg INHALATION RT-BID 12/16/21 12/17/21 Ergocalciferol (Vitamin D2) 1,250 mcg PO CALIXTO 12/16/21 12/17/21 [Drisdol (50,000 Iu)] Iron 18 mg PO BID 12/16/21 12/17/21 busPIRone HCl [Buspar] 5 mg PO TID 12/16/21 12/17/21 Budesonide/Formoterol Fumarate 2 puff INHALATION RT-BID 12/17/21 12/17/21 [Symbicort 80-4.5 Mcg Inhaler] Previous Rx's Medication Instructions Recorded ALPRAZolam [Xanax] 0.5 mg PO HS PRN #3 tab 01/02/22 INSULIN ASPART (NovoLOG) [NovoLOG 10 unit SQ AC-TID #10 ml 01/02/22 (formulary)] Insulin Glargine [Lantus Vial] 20 unit SQ HS #10 ml 01/02/22 Ipratropium-Albuterol Nebulize 3 ml INHALATION RT-Q4H PRN #0 01/02/22 [Duoneb 0.5 mg-3 mg/3 ml Soln] Ipratropium-Albuterol Nebulize 3 ml INHALATION RT-QID ml 01/02/22 [Duoneb 0.5 mg-3 mg/3 ml Soln] Isosorbide Mononitrate ER [Imdur] 30 mg PO DAILY #30 tablet 01/02/22 Sertraline [Zoloft] 100 mg PO HS #0 01/02/22 Tamsulosin [Flomax] 0.4 mg PO PC-BRKFST #30 01/02/22 Torsemide [Demadex] 20 mg PO DAILY #30 tab 01/02/22 carvediloL [Coreg*] 25 mg PO BID-W/MEALS #60 tab 01/02/22 hydrALAZINE HCL 100 mg PO Q8H #0 01/02/22 predniSONE 10 mg PO DIRECTED #30 tab 01/02/22 Allergies Allergy/AdvReac Type Severity Reaction Status Date / Time amoxicillin Allergy Anaphylaxis Verified 12/16/21 17:51 Penicillins Allergy Anaphylaxis Verified 12/16/21 17:51 zolpidem [From Ambien] AdvReac Confusion/A Verified 12/16/21 17:51 MS Review of Systems ROS Statement: Those systems with pertinent positive or pertinent negative responses have been documented in the HPI. ROS Other: All systems not noted in ROS Statement are negative. Past Medical History Past Medical History: COPD, Diabetes Mellitus, Hypertension Additional Past Medical History / Comment(s): ARDS secondary to pneumonia more than 10 years ago requiring tracheostomy tube insertion, COPD with established FEV1 of 41% of predicted, diabetes mellitus, hypertension, history of morbid obesity History of Any Multi-Drug Resistant Organisms: None Reported Past Surgical History: Cholecystectomy, Hysterectomy Past Anesthesia/Blood Transfusion Reactions: No Reported Reaction Past Psychological History: Anxiety Past Alcohol Use History: None Reported Past Drug Use History: None Reported - Past Family History Mother Family Medical History: Congestive Heart Failure (CHF), Diabetes Mellitus Additional Family Medical History / Comment(s): The patient's mother had congestion heart failure and diabetes mellitus in the father had Parkinson's disease. General Exam General appearance: alert, in no apparent distress, obese Head exam: Present: atraumatic, normocephalic, normal inspection Eye exam: Present: normal appearance, PERRL, EOMI. Absent: scleral icterus, conjunctival injection, periorbital swelling ENT exam: Present: normal exam, mucous membranes moist Neck exam: Present: normal inspection. Absent: tenderness, meningismus, lymphadenopathy Respiratory exam: Present: rales, decreased breath sounds. Absent: respiratory distress, wheezes, rhonchi, stridor Cardiovascular Exam: Present: regular rate, normal rhythm, normal heart sounds. Absent: systolic murmur, diastolic murmur, rubs, gallop, clicks GI/Abdominal exam: Present: soft, normal bowel sounds. Absent: distended, tenderness, guarding, rebound, rigid Extremities exam: Present: normal inspection, full ROM, normal capillary refill, pedal edema. Absent: tenderness, joint swelling, calf tenderness Back exam: Present: normal inspection Neurological exam: Present: alert, oriented X3, CN II-XII intact Psychiatric exam: Present: normal affect, normal mood Skin exam: Present: warm, dry, intact, normal color. Absent: rash Course Vital Signs 12/16/21 12/16/21 12/16/21 14:29 16:57 17:07 Temperature 97.4 F L Pulse Rate 77 74 74 Respiratory 20 Rate Blood Pressure 113/71 O2 Sat by Pulse 90 L Oximetry 12/16/21 21:30 Temperature Pulse Rate 71 Respiratory 22 Rate Blood Pressure 117/63 O2 Sat by Pulse 93 L Oximetry Medical Decision Making - Medical Decision Making Upon arrival patient is placed in room 21. A thorough history and physical exam was performed. IV access established and laboratory studies were conducted. Laboratory studies are reviewed and demonstrates a BNP of 1700. A chest x-ray demonstrates cardiomegaly with coronary vascular congestion and bilateral pleu ral effusions. I did speak with the patient regards these findings. Does admit to me that she had one episode of this previously in the past and was treated with IV diuretics at [facility]. Patient is given 60 mg of Lasix IV at this time. Patient not on any current diuretics at home. Recommended admission to the patient did agree to. We'll consult Dr. Garcia as well as cardiology for heart failure. Patient agreed to the treatment plan and was transferred to the floor in stable condition - Lab Data Result diagrams: 01/02/22 04:29 01/02/22 13:23 Lab Results 12/16/21 12/16/21 12/16/21 Range/Units 16:11 16:11 16:11 WBC 6.8 (3.8-10.6) k/uL RBC 3.81 (3.80-5.40) m/uL Hgb 9.1 L (11.4-16.0) gm/dL Hct 31.1 L (34.0-46.0) % MCV 81.5 (80.0-100.0) fL MCH 23.9 L (25.0-35.0) pg MCHC 29.3 L (31.0-37.0) g/dL RDW 15.7 H (11.5-15.5) % Plt Count 145 L (150-450) k/uL MPV 8.0 Neutrophils % 89 % Lymphocytes % 5 % Monocytes % 5 % Eosinophils % 0 % Basophils % 0 % Neutrophils # 6.1 (1.3-7.7) k/uL Lymphocytes # 0.3 L (1.0-4.8) k/uL Monocytes # 0.3 (0-1.0) k/uL Eosinophils # 0.0 (0-0.7) k/uL Basophils # 0.0 (0-0.2) k/uL Hypochromasia Marked PT 10.3 (9.0-12.0) sec INR 0.9 (<1.2) APTT 26.2 (22.0-30.0) sec D-Dimer 0.56 (<0.60) mg/L FEU Sodium 137 (137-145) mmol/L Potassium 4.3 (3.5-5.1) mmol/L Chloride 96 L (98-107) mmol/L Carbon Dioxide 32 H (22-30) mmol/L Anion Gap 9 mmol/L BUN 39 H (7-17) mg/dL Creatinine 1.71 H (0.52-1.04) mg/dL Est GFR (CKD-EPI)AfAm 34 (>60 ml/min/1.73 sqM) Est GFR (CKD-EPI)NonAf 30 (>60 ml/min/1.73 sqM) Glucose 206 H (74-99) mg/dL Plasma Lactic Acid Uday (0.7-2.0) mmol/L Calcium 8.9 (8.4-10.2) mg/dL Magnesium 2.1 (1.6-2.3) mg/dL Total Bilirubin 0.5 (0.2-1.3) mg/dL AST 22 (14-36) U/L ALT 23 (4-34) U/L Alkaline Phosphatase 93 (38-126) U/L Troponin I (0.000-0.034) ng/mL NT-Pro-B Natriuret Pep pg/mL Total Protein 6.1 L (6.3-8.2) g/dL Albumin 3.8 (3.5-5.0) g/dL 12/16/21 12/16/21 12/16/21 Range/Units 16:11 16:11 16:11 WBC (3.8-10.6) k/uL RBC (3.80-5.40) m/uL Hgb (11.4-16.0) gm/dL Hct (34.0-46.0) % MCV (80.0-100.0) fL MCH (25.0-35.0) pg MCHC (31.0-37.0) g/dL RDW (11.5-15.5) % Plt Count (150-450) k/uL MPV Neutrophils % % Lymphocytes % % Monocytes % % Eosinophils % % Basophils % % Neutrophils # (1.3-7.7) k/uL Lymphocytes # (1.0-4.8) k/uL Monocytes # (0-1.0) k/uL Eosinophils # (0-0.7) k/uL Basophils # (0-0.2) k/uL Hypochromasia PT (9.0-12.0) sec INR (<1.2) APTT (22.0-30.0) sec D-Dimer (<0.60) mg/L FEU Sodium (137-145) mmol/L Potassium (3.5-5.1) mmol/L Chloride (98-107) mmol/L Carbon Dioxide (22-30) mmol/L Anion Gap mmol/L BUN (7-17) mg/dL Creatinine (0.52-1.04) mg/dL Est GFR (CKD-EPI)AfAm (>60 ml/min/1.73 sqM) Est GFR (CKD-EPI)NonAf (>60 ml/min/1.73 sqM) Glucose (74-99) mg/dL Plasma Lactic Acid Uday 0.9 (0.7-2.0) mmol/L Calcium (8.4-10.2) mg/dL Magnesium (1.6-2.3) mg/dL Total Bilirubin (0.2-1.3) mg/dL AST (14-36) U/L ALT (4-34) U/L Alkaline Phosphatase (38-126) U/L Troponin I <0.012 (0.000-0.034) ng/mL NT-Pro-B Natriuret Pep 1700 pg/mL Total Protein (6.3-8.2) g/dL Albumin (3.5-5.0) g/dL - EKG Data EKG Comments: EKG demonstrates normal sinus rhythm with a ventricular rate of 73. CA interval 149. QRS 97 her QTC of 394. Some baseline artifact. No acute ST segment elevations. Mild ST depression in V6 Disposition Clinical Impression: COPD (chronic obstructive pulmonary disease), COPD with acute exacerbation, Hypoxia, CHF (congestive heart failure) Disposition: ADMITTED IP TO THIS [facility] Condition: Stable Is patient prescribed a controlled substance at d/c from ED?: No Decision to Admit Reason: Admit from EC Decision Date: 12/16/21 Decision Time: 18:41
[2021-12-16] MEDS ORDERED: FUROSEMIDE 10 MG/ML 10 ML VIAL IV STA (18:32)
[2021-12-16] MEDS ORDERED: NALOXONE 0.4 MG/ML 1 ML VIAL IV PRN (18:41)
[2021-12-16] MEDS ORDERED: ALBUTEROL NEBULIZED 2.5 MG/3 ML INHALATION PRN (21:52)
[2021-12-16] MEDS ORDERED: INSULIN ASPART (NovoLOG) 100 UNIT/ML VIAL SQ PRN (21:52)
[2021-12-16] MEDS: FUROSEMIDE 10 MG/ML 4 ML VIAL IV SCH (22:29)
[2021-12-16] MEDS: hydrALAZINE HCL 50 MG TAB PO SCH (22:29)
[2021-12-16] MEDS: busPIRone HCl 5 MG TAB PO SCH (22:29)
[2021-12-16 22:31] LABS: Glucose,Whole Blood 313 mg/dL (75-99)
[2021-12-16] MEDS: PRAVASTATIN SODIUM 40 MG TAB PO SCH (22:31)
[2021-12-16] MEDS: MONTELUKAST 10 MG TAB PO SCH (22:31)
[2021-12-16] MEDS: SERTRALINE 50 MG TAB PO SCH (22:31)
[2021-12-16] MEDS: LORazepam 2 MG/ML INJ IV PRN (22:31)
[2021-12-16] MEDS: INSULIN ASPART (NovoLOG) 100 UNIT/ML VIAL SQ SCH (23:47)
[2021-12-17] MEDS: LEVOTHYROXINE 88 MCG TAB PO SCH (06:12)
[2021-12-17] MEDS: hydrALAZINE HCL 50 MG TAB PO SCH ×3 (06:12→20:28)
[2021-12-17] MEDS: INSULIN ASPART (NovoLOG) 100 UNIT/ML VIAL SQ SCH ×4 (06:12→20:28)
[2021-12-17 06:30] LABS: Glucose,Whole Blood 177 mg/dL (75-99)
[2021-12-17] MEDS: SYMBICORT 160-4.5 MCG INHALER INHALATION SCH ×2 (07:27→19:47)
[2021-12-17] MEDS ORDERED: INSULIN ASPART (NovoLOG) 100 UNIT/ML VIAL SQ SCH (07:30)
[2021-12-17] MEDS ORDERED: BUDESONIDE 0.5 MG/2 ML NEBU INHALATION SCH (08:00)
[2021-12-17] MEDS: amLODIPine 10 MG TAB PO SCH (08:24)
[2021-12-17] MEDS: busPIRone HCl 5 MG TAB PO SCH ×3 (08:26→20:27)
[2021-12-17] MEDS: FUROSEMIDE 10 MG/ML 4 ML VIAL IV SCH ×2 (08:26→20:27)
[2021-12-17] MEDS: FERROUS SULFATE 325 MG TAB PO SCH (08:27)
[2021-12-17] MEDS: THYROID, PORK 30 MG TAB PO SCH (08:27)
[2021-12-17] MEDS: LOSARTAN 50 MG TAB PO SCH (08:27)
[2021-12-17 09:13] LABS: Basophils % (A) 0 %; Eosinophils % (A) 0 %; HCT 32.2 % (34.0-46.0); HGB 9.3 gm/dL (11.4-16.0); Hypochromasia Marked; Lymphocytes # (A) 0.4 k/uL (1.0-4.8); Lymphocytes % (A) 8 %; MCH 24.1 pg (25.0-35.0); MCHC 28.9 g/dL (31.0-37.0); MCV 83.4 fL (80.0-100.0); Mean Platelet Volume 8.3; Monocytes # (A) 0.1 k/uL (0-1.0); Monocytes % (A) 3 %; Neutrophils # (A) 4.3 k/uL (1.3-7.7); Neutrophils % (A) 89 %; Platelet Count 139 k/uL (150-450); RBC 3.86 m/uL (3.80-5.40); RDW 15.6 % (11.5-15.5); WBC 4.8 k/uL (3.8-10.6)
[2021-12-17 09:19] LABS: Potassium 4.5 mmol/L (3.5-5.1)
[2021-12-17 11:45] LABS: Glucose,Whole Blood 166 mg/dL (75-99)
--- NOTE | 2021-12-17 12:10 | P.CRDCN ---
History of Present Illness Consult date: 12/17/21 History of present illness: HISTORY OF PRESENTING ILLNESS This is a pleasant 71-year-old female past medical history significant for COPD requiring supplemental home oxygen diabetes hypertension hypothyroidism and morbid obesity. 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 We have been asked to see in consultation for acute congestive heart failure. Patient was brought into the ER by her daughter for increased shortness of breath. Patient had Covid in September 2021 and since that time she has been requiring increased supplemental oxygen. Per daughter she has been declining since September. Patient is seen resting in bed in no acute distress on 10 L nasal cannula. At home she usually required 4-5 L. She reports she has moderate exertional dyspnea. She does feel better since starting the IV Lasix. Her EKG shows sinus rhythm. Her chest x-ray showed cardiomegaly with coronary vascular congestion. Patient has no known history of coronary artery disease or congestive heart failure. Prior to this admission she was always told she has a strong heart. Patient had an echocardiogram in 2018 which showed a normal LV function with an ejection fraction of 55%-60%, without wall motion, she did have mild mitral valve regurgitation. Her BNP is 1700. Troponins negative 1. She is currently on Norvasc 10 mg daily Lasix 40 mg IV twice a day losartan 50 mg daily pravastatin 40 mg at bedtime Patient is currently not on a beta fariba. Will start patient on Toprol-XL 50 mg daily obtain a 2-D echo Review of Systems REVIEW OF SYSTEMS At the time of my exam: CONSTITUTIONAL: Denies fever or chills. EYES: Negative for vision changes ENT: Negative for hearing loss CARDIOVASCULAR: Denies chest pain, diaphoresis, orthopnea, PND or palpitations. VASCULAR: Denies edema RESPIRATORY: Reports shortness of breath. Denies cough. GASTROINTESTINAL: Denies abdominal pain, diarrhea, constipation, nausea or vomiting. MUSCULOSKELETAL: Denies myalgias. NEUROLOGIC: Denies numbness, tingling, headache or weakness. ENDOCRINE: Denies fatigue, weight change, polydipsia or polyurina. GENITOURINARY: Denies burning, hematuria or urgency with micturation. HEMATOLOGIC: Denies history of anemia or bleeding. DERMATOLOGY: Denies rash or skin sores PSYCH: Negative for depression or hallucinations. Past Medical History Past Medical History: COPD, Diabetes Mellitus, Hypertension Additional Past Medical History / Comment(s): ARDS secondary to pneumonia more than 10 years ago requiring tracheostomy tube insertion, COPD with established FEV1 of 41% of predicted, diabetes mellitus, hypertension, history of morbid obesity History of Any Multi-Drug Resistant Organisms: None Reported Past Surgical History: Cholecystectomy, Hysterectomy Past Anesthesia/Blood Transfusion Reactions: No Reported Reaction Past Psychological History: Anxiety Past Alcohol Use History: None Reported Past Drug Use History: None Reported - Past Family History Mother Family Medical History: Congestive Heart Failure (CHF), Diabetes Mellitus Additional Family Medical History / Comment(s): The patient's mother had congestion heart failure and diabetes mellitus in the father had Parkinson's disease. Medications and Allergies Home Medications Medication Instructions Recorded Confirmed Type Albuterol Sulfate [Proair Hfa] 1 - 2 puff INHALATION RT-Q6H PRN 05/22/19 12/16/21 History Budesonide/Formoterol Fumarate 2 puff INHALATION RT-BID 05/22/19 12/16/21 History [Symbicort 160-4.5 Mcg Inhaler] Levothyroxine Sodium [Synthroid] 88 mcg PO DAILY 05/22/19 12/16/21 History Montelukast [Singulair] 10 mg PO HS 05/22/19 12/16/21 History Pravastatin Sodium [Pravachol] 40 mg PO HS 05/22/19 12/16/21 History Sertraline [Zoloft] 150 mg PO HS 05/22/19 12/16/21 History Thyroid,Pork [Highballer Thyroid] 30 mg PO DAILY 05/22/19 12/16/21 History Tiotropium 18 Mcg/Puff [Spiriva] 1 cap INHALATION RT-DAILY 05/22/19 12/16/21 History amLODIPine [Norvasc] 10 mg PO DAILY 05/22/19 12/16/21 History Insulin Glargine [Lantus Vial] See Protocol SQ HS 08/27/19 12/16/21 History Ipratropium-Albuterol Nebulize 3 ml INHALATION RT-Q4H 01/16/20 12/16/21 History [Duoneb 0.5 mg-3 mg/3 ml Soln] Budesonide [Pulmicort] 0.5 mg INHALATION RT-BID 12/16/21 12/16/21 History Ergocalciferol (Vitamin D2) 1,250 mcg PO CALIXTO 12/16/21 12/16/21 History [Drisdol (50,000 Iu)] Furosemide [Lasix] 20 mg PO DAILY 12/16/21 12/16/21 History INSULIN ASPART (NovoLOG) [NovoLOG 10 - 15 unit SQ PC-TID PRN 12/16/21 12/16/21 History (formulary)] Iron 18 mg PO BID 12/16/21 12/16/21 History Losartan Potassium 50 mg PO DAILY 12/16/21 12/16/21 History busPIRone HCl [Buspar] 5 mg PO TID 12/16/21 12/16/21 History hydrALAZINE HCL 50 mg PO Q8H 12/16/21 12/16/21 History Allergies Allergy/AdvReac Type Severity Reaction Status Date / Time amoxicillin Allergy Anaphylaxis Verified 12/16/21 17:51 Penicillins Allergy Anaphylaxis Verified 12/16/21 17:51 zolpidem [From Ambien] AdvReac Confusion/A Verified 12/16/21 17:51 MS Physical Exam Vitals: Vital Signs Temp Pulse Pulse Resp BP BP Pulse Ox 12/17/21 08:20 98.4 F 89 22 150/68 88 L 12/17/21 07:40 95 12/17/21 07:27 101 H 95 12/17/21 04:00 97.9 F 79 18 179/79 94 L 12/17/21 02:00 85 24 12/17/21 00:00 98.0 F 80 24 179/75 90 L 12/16/21 22:00 98.0 F 85 26 H 213/93 90 L 12/16/21 21:30 71 22 117/63 93 L 12/16/21 17:07 74 12/16/21 16:57 74 12/16/21 14:29 97.4 F L 77 20 113/71 90 L Intake and Output 12/16/21 12/17/21 12/17/21 22:59 06:59 14:59 Intake Total 120 Output Total 400 Balance -400 120 Intake: Oral 120 Output: Urine 400 Other: # Voids 1 2 # Bowel Movements 1 1 Weight 98.883 kg PHYSICAL EXAMINATION Vital signs reviewed Labs reviewed CONSTITUTIONAL: No apparent distress. HEENT: Head is normocephalic. Pupils are equal, round. Sclerae anicteric. Mucous membranes of the mouth are moist. NECK: No JVD. No carotid bruit. RESPIRATORY: Lungs are diminished to auscultation. No chest wall tenderness is noted on palpation or with deep breathing. On 10 L high flow nasal cannula CARDIAC: Regular rate and rhythm. S1, S2 heard. No murmurs, gallops or rub. ABDOMEN: Soft, nontender. EXTREMITIES: 2+ peripheral pulses, mild bilateral lower extremity edema, no calf tenderness. NEUROLOGIC EXAMINATION: Patient is awake, alert and oriented x3. INTEGUMENTARY: Warm, absent for rashes or sores PSYCH: Orientated to person, place, time, mood appropriate PSYCH: Negative for depression or hallucinations. Results 12/17/21 08:34 12/17/21 08:34 Cardiac Enzymes 12/16/21 12/16/21 Range/Units 16:11 16:11 AST 22 (14-36) U/L Troponin I <0.012 (0.000-0.034) ng/mL Coagulation 12/16/21 Range/Units 16:11 PT 10.3 (9.0-12.0) sec APTT 26.2 (22.0-30.0) sec CBC 12/16/21 12/17/21 Range/Units 16:11 08:34 WBC 6.8 4.8 (3.8-10.6) k/uL RBC 3.81 3.86 (3.80-5.40) m/uL Hgb 9.1 L 9.3 L (11.4-16.0) gm/dL Hct 31.1 L 32.2 L (34.0-46.0) % Plt Count 145 L 139 L (150-450) k/uL Comprehensive Metabolic Panel 12/16/21 12/17/21 Range/Units 16:11 08:34 Sodium 137 138 (137-145) mmol/L Potassium 4.3 4.5 (3.5-5.1) mmol/L Chloride 96 L 94 L (98-107) mmol/L Carbon Dioxide 32 H 36 H (22-30) mmol/L BUN 39 H 41 H (7-17) mg/dL Creatinine 1.71 H 1.68 H (0.52-1.04) mg/dL Glucose 206 H 209 H (74-99) mg/dL Calcium 8.9 9.0 (8.4-10.2) mg/dL AST 22 (14-36) U/L ALT 23 (4-34) U/L Alkaline Phosphatase 93 (38-126) U/L Total Protein 6.1 L (6.3-8.2) g/dL Albumin 3.8 (3.5-5.0) g/dL Current Medications Generic Name Dose Route Start Last Admin Trade Name Freq PRN Reason Stop Dose Admin Albuterol Sulfate 2.5 mg 12/16/21 21:52 12/17/21 07:26 Albuterol Nebulized 2.5 Mg/3 Ml INHALATION 2.5 mg RT-Q6H PRN Administration Shortness Of Breath Amlodipine Besylate 10 mg 12/17/21 09:00 12/17/21 08:24 Amlodipine 10 Mg Tab PO 10 mg DAILY DAE Administration Budesonide 0.5 mg 12/17/21 08:00 12/17/21 07:27 Budesonide 0.5 Mg/2 Ml Nebu INHALATION 0.5 mg RT-BID DAE Administration Budesonide/Formoterol Fumarate 2 puff 12/17/21 08:00 12/17/21 07:27 Symbicort 160-4.5 Mcg Inhaler INHALATION Not Given RT-BID DAE Buspirone HCl 5 mg 12/16/21 22:00 12/17/21 08:26 Buspirone Hcl 5 Mg Tab PO 5 mg TID DAE Administration Ergocalciferol 1,250 mcg 12/18/21 09:00 Ergocalciferol 1,250 Mcg (50,000 Iu) Capsule PO CALIXTO DAE Ferrous Sulfate 325 mg 12/17/21 09:00 12/17/21 08:27 Ferrous Sulfate 325 Mg Tab PO 325 mg DAILY DAE Administration Furosemide 40 mg 12/16/21 21:00 12/17/21 08:26 Furosemide 10 Mg/Ml 4 Ml Vial IV 40 mg BID DAE Administration Hydralazine HCl 50 mg 12/16/21 22:00 12/17/21 06:12 Hydralazine Hcl 50 Mg Tab PO 50 mg Q8H DAE Administration Insulin Aspart 0 unit 12/16/21 22:34 12/17/21 06:12 Insulin Aspart (Novolog) 100 Unit/Ml Vial SQ 4 unit ACHS DAE Administration Protocol Levothyroxine Sodium 88 mcg 12/17/21 06:30 12/17/21 06:12 Levothyroxine 88 Mcg Tab PO 88 mcg DAILY@0630 DAE Administration Lorazepam 1 mg 12/16/21 22:22 12/16/21 22:31 Lorazepam 2 Mg/Ml Inj IV 1 mg Q6HR PRN Administration Anxiety Losartan Potassium 50 mg 12/17/21 09:00 12/17/21 08:27 Losartan 50 Mg Tab PO 50 mg DAILY DAE Administration Montelukast Sodium 10 mg 12/16/21 22:00 12/16/21 22:31 Montelukast 10 Mg Tab PO 10 mg HS DAE Administration Naloxone HCl 0.2 mg 12/16/21 18:41 Naloxone 0.4 Mg/Ml 1 Ml Vial IV Q2M PRN Opioid Reversal Pravastatin Sodium 40 mg 12/16/21 22:00 12/16/21 22:31 Pravastatin Sodium 40 Mg Tab PO 40 mg HS DAE Administration Sertraline HCl 150 mg 12/16/21 22:00 12/16/21 22:31 Sertraline 50 Mg Tab PO 150 mg HS DAE Administration Thyroid 30 mg 12/17/21 09:00 12/17/21 08:27 Thyroid, Pork 30 Mg Tab PO 30 mg DAILY DAE Administration Intake and Output 12/16/21 12/17/21 12/17/21 22:59 06:59 14:59 Intake Total 120 Output Total 400 Balance -400 120 Intake: Oral 120 Output: Urine 400 Other: # Voids 1 2 # Bowel Movements 1 1 Weight 98.883 kg 12/17/21 08:34 12/17/21 08:34 Assessment and Plan Assessment: Acute congestive heart failure unspecified COPD exacerbation 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 Katarina Brown, nurse practitioner, acting as scribe for signing physician.
--- NOTE | 2021-12-17 12:39 | ECHOF ---
Referral Reason:acute CHF MEASUREMENTS -------- HEIGHT: 157.5 cm WEIGHT: 98.9 kg BP: RVIDd: 3.9 cm (< 3.3) IVSd: 1.3 cm (0.6 - 1.1) LVIDd: 4.0 cm (3.9 - 5.3) LVPWd: 1.2 cm (0.6 - 1.1) IVSs: 2.0 cm LVIDs: 3.2 cm LVPWs: 1.9 cm LA Diam: 4.2 cm (2.7 - 3.8) LAESV Index (A-L): 41.82 ml/m Ao Diam: 3.3 cm (2.0 - 3.7) AV Cusp: 1.9 cm (1.5 - 2.6) MV EXCURSION: 11.351 mm (> 18.000) MV EF SLOPE: 37 mm/s (70 - 150) EPSS: 0.6 cm MV E Anjum: 1.15 m/s MV DecT: 221 ms MV A Anjum: 1.16 m/s MV E/A Ratio: 0.99 AV maxP.19 mmHg AV maxP.19 mmHg AV meanP.16 mmHg RAP: 5.00 mmHg RVSP: 55.45 mmHg FINDINGS -------- Sinus rhythm. This was a technically adequate study. The left ventricular size is normal. There is mild concentric left ventricular hypertrophy. Overa ll left ventricular systolic function is normal with, an EF between 55 - 60 %. The right ventricle is moderately enlarged. LA is severely dilated >40 ml/m2 The right atrium is normal in size. Interatrial and interventricular septum intact. There is mild aortic valve sclerosis. There is mild aortic stenosis present. Peak/mean gradient a cross the Aortic Valve is 14.19mmHg / 6.16mmHg. The mitral valve is normal. Mild tricuspid regurgitation present. There is moderate to severe pulmonary hypertension. The rig ht ventricular systolic pressure, as measured by Doppler, is 55.45mmHg. Trace/mild (physiologic) pulmonic regurgitation. The aortic root size is normal. Normal inferior vena cava with normal inspiratory collapse consistent with estimated right atrial pre ssure of 5 mmHg. There is a small pericardial effusion located near the left ventricle. CONCLUSIONS -------- 1. The left ventricular size is normal. 2. There is mild concentric left ventricular hypertrophy. 3. Overall left ventricular systolic function is normal with, an EF between 55 - 60 %. 4. The right ventricle is moderately enlarged. 5. LA is severely dilated >40 ml/m2 6. There is mild aortic valve sclerosis. 7. There is mild aortic stenosis present. 8. Peak/mean gradient across the Aortic Valve is 14.19mmHg / 6.16mmHg. 9. Mild tricuspid regurgitation present. 10. There is moderate to severe pulmonary hypertension. 11. The right ventricular systolic pressure, as measured by Doppler, is 55.45mmHg. 12. Trace/mild (physiologic) pulmonic regurgitation. 13. There is a small pericardial effusion located near the left ventricle. RESTAURANT SUPERVISOR: EDWARDO Marina
--- NOTE | 2021-12-17 13:01 | P.HPIM ---
History of Present Illness This is a pleasant 71 years old female with past medical history of Diabetes Mellitus, Hypertension, COPD with established FEV1 of 41% of predicted,history of morbid obesity. Patient recently diagnosed with covid last September with chronic hypoxic respiratory failure. She is on 4-5 L/m of oxygen but since she got Covid her oxygen requirements went up to 6-9 L/m at home as she states. Her customer data technician is Dr. Cunningham. Presents because of dyspnea of 2 days' duration, no paroxysmal nocturnal dyspnea or orthopnea. She denies chest pain but she has little cough and plastic drain phlegm but this is a chronic. She denies abdominal pain or vomiting or diarrhea. No dysuria or urgency. No headache or dizziness or weakness or numbness. She quit smoking. No alcohol or illicit drugs. She has chronic gait instability, she cannot walk for long distances because of her breathing pattern. On admission patient is hypoxic, she is saturating 95% on Evelyn, oxygen via nasal cannula CBC showed only mild anemia 9.1 and mild thrombocytopenia at 145 with normal WBC. D-dimer is normal 0.56. INR 0.9 Creatinine elevated 1.7, compared to baseline of 1.1-1.3 Chest x-ray: Pulmonary vascular congestion and pleural effusions. CHF EKG showing normal sinus rhythm at [address]-T changes. Echocardiogram on 2019: Showed a preserved ejection fraction of 55-60% In the emergency room patient was started on IV Lasix and echocardiogram was ordered Review of Systems CONSTITUTIONAL: No fever, no malaise, no fatigue. HEENT: No recent visual problems or hearing problems. Denied any sore throat. CARDIOVASCULAR: No orthopnea, PND, no palpitations, no syncope. PULMONARY: No chest wall tenderness, no hemoptysis. GASTROINTESTINAL: No diarrhea, no nausea, no vomiting, no abdominal pain. N ormoactive bowel sounds. NEUROLOGICAL: No headaches, no weakness, no numbness. HEMATOLOGICAL: Denies any bleeding or petechiae. GENITOURINARY: Denies any burning micturition, frequency, or urgency. MUSCULOSKELETAL/RHEUMATOLOGICAL: Denies any joint pain, swelling, or any muscle pain. ENDOCRINE: Denies any polyuria or polydipsia. Past Medical History Past Medical History: COPD, Diabetes Mellitus, Hypertension Additional Past Medical History / Comment(s): ARDS secondary to pneumonia more than 10 years ago requiring tracheostomy tube insertion, COPD with established FEV1 of 41% of predicted, diabetes mellitus, hypertension, history of morbid obesity History of Any Multi-Drug Resistant Organisms: None Reported Past Surgical History: Cholecystectomy, Hysterectomy Past Anesthesia/Blood Transfusion Reactions: No Reported Reaction Past Psychological History: Anxiety Past Alcohol Use History: None Reported Past Drug Use History: None Reported - Past Family History Mother Family Medical History: Congestive Heart Failure (CHF), Diabetes Mellitus Additional Family Medical History / Comment(s): The patient's mother had congestion heart failure and diabetes mellitus in the father had Parkinson's disease. Medications and Allergies Home Medications Medication Instructions Recorded Confirmed Type Albuterol Sulfate [Proair Hfa] 1 - 2 puff INHALATION RT-Q6H PRN 05/22/19 12/16/21 History Budesonide/Formoterol Fumarate 2 puff INHALATION RT-BID 05/22/19 12/16/21 History [Symbicort 160-4.5 Mcg Inhaler] Levothyroxine Sodium [Synthroid] 88 mcg PO DAILY 05/22/19 12/16/21 History Montelukast [Singulair] 10 mg PO HS 05/22/19 12/16/21 History Pravastatin Sodium [Pravachol] 40 mg PO HS 05/22/19 12/16/21 History Sertraline [Zoloft] 150 mg PO HS 05/22/19 12/16/21 History Thyroid,Pork [Interactive Media Marketing Strategist Thyroid] 30 mg PO DAILY 05/22/19 12/16/21 History Tiotropium 18 Mcg/Puff [Spiriva] 1 cap INHALATION RT-DAILY 05/22/19 12/16/21 History amLODIPine [Norvasc] 10 mg PO DAILY 05/22/19 12/16/21 History Insulin Glargine [Lantus Vial] See Protocol SQ HS 08/27/19 12/16/21 History Ipratropium-Albuterol Nebulize 3 ml INHALATION RT-Q4H 01/16/20 12/16/21 History [Duoneb 0.5 mg-3 mg/3 ml Soln] Budesonide [Pulmicort] 0.5 mg INHALATION RT-BID 12/16/21 12/16/21 History Ergocalciferol (Vitamin D2) 1,250 mcg PO CALIXTO 12/16/21 12/16/21 History [Drisdol (50,000 Iu)] Furosemide [Lasix] 20 mg PO DAILY 12/16/21 12/16/21 History INSULIN ASPART (NovoLOG) [NovoLOG 10 - 15 unit SQ PC-TID PRN 12/16/21 12/16/21 History (formulary)] Iron 18 mg PO BID 12/16/21 12/16/21 History Losartan Potassium 50 mg PO DAILY 12/16/21 12/16/21 History busPIRone HCl [Buspar] 5 mg PO TID 12/16/21 12/16/21 History hydrALAZINE HCL 50 mg PO Q8H 12/16/21 12/16/21 History Allergies Allergy/AdvReac Type Severity Reaction Status Date / Time amoxicillin Allergy Anaphylaxis Verified 12/16/21 17:51 Penicillins Allergy Anaphylaxis Verified 12/16/21 17:51 zolpidem [From Ambien] AdvReac Confusion/A Verified 12/16/21 17:51 MS Physical Exam Vitals: Vital Signs Temp Pulse Pulse Resp BP BP Pulse Ox 12/17/21 07:40 95 12/17/21 07:27 101 H 95 12/17/21 04:00 97.9 F 79 18 179/79 94 L 12/17/21 02:00 85 24 12/17/21 00:00 98.0 F 80 24 179/75 90 L 12/16/21 22:00 98.0 F 85 26 H 213/93 90 L 12/16/21 21:30 71 22 117/63 93 L 12/16/21 17:07 74 12/16/21 16:57 74 12/16/21 14:29 97.4 F L 77 20 113/71 90 L Intake and Output 12/16/21 12/17/21 12/17/21 22:59 06:59 14:59 Output Total 400 Balance -400 Output: Urine 400 Other: # Voids 1 # Bowel Movements 1 Weight 98.883 kg -GENERAL: The patient is alert and oriented x3, not in any acute distress. Obese with BMI of 39.9 HEENT: Pupils are round and equally reacting to light. EOMI. No scleral icterus. No conjunctival pallor. Normocephalic, atraumatic. No pharyngeal erythema. No thyromegaly. CARDIOVASCULAR: S1 and S2 present. No murmurs, rubs, or gallops. -PULMONARY: Chest is clear to auscultation, no wheezing . Decreased air entry on both sides. Bilateral basal crepitation ABDOMEN: Soft, nontender, nondistended, normoactive bowel sounds. No palpable organomegaly. MUSCULOSKELETAL: No joint swelling or deformity. -EXTREMITIES: No cyanosis, clubbing, Bilateral patellar ligament edema NEUROLOGICAL: Gross neurological examination did not reveal any focal deficits. SKIN: No rashes. No petechiae Results CBC & Chem 7: 12/17/21 08:34 12/17/21 08:34 Labs: Abnormal Lab Results - Last 24 Hours (Table) 12/16/21 12/16/21 12/16/21 Range/Units 16:11 16:11 22:25 Hgb 9.1 L (11.4-16.0) gm/dL Hct 31.1 L (34.0-46.0) % MCH 23.9 L (25.0-35.0) pg MCHC 29.3 L (31.0-37.0) g/dL RDW 15.7 H (11.5-15.5) % Plt Count 145 L (150-450) k/uL Lymphocytes # 0.3 L (1.0-4.8) k/uL Chloride 96 L (98-107) mmol/L Carbon Dioxide 32 H (22-30) mmol/L BUN 39 H (7-17) mg/dL Creatinine 1.71 H (0.52-1.04) mg/dL Glucose 206 H (74-99) mg/dL POC Glucose (mg/dL) 313 H (75-99) mg/dL Total Protein 6.1 L (6.3-8.2) g/dL 12/17/21 Range/Units 05:58 Hgb (11.4-16.0) gm/dL Hct (34.0-46.0) % MCH (25.0-35.0) pg MCHC (31.0-37.0) g/dL RDW (11.5-15.5) % Plt Count (150-450) k/uL Lymphocytes # (1.0-4.8) k/uL Chloride (98-107) mmol/L Carbon Dioxide (22-30) mmol/L BUN (7-17) mg/dL Creatinine (0.52-1.04) mg/dL Glucose (74-99) mg/dL POC Glucose (mg/dL) 177 H (75-99) mg/dL Total Protein (6.3-8.2) g/dL Thrombosis Risk Factor Assmnt - Choose All That Apply Any of the Below Risk Factors Present?: Yes Each Factor Represents 1 point: Abnormal pulmonary function (COPD), Obesity (BMI >25), Swollen legs (current) Each Risk Factor Represents 2 Points: Age 61-74 years Each Risk Factor Represents 3 Points: History of DVT/PE Other congenital or acquired thrombophilia - If yes, enter type in comment: No Thrombosis Risk Factor Assessment Total Risk Factor Score: 8 Thrombosis Risk Factor Assessment Level: High Risk Assessment and Plan Assessment: New-onset Acute congestive heart failure, unknown ejection fraction COPD with exacerbation Acute and chronic hypoxic respiratory failure Acute kidney injury, chronic kidney disease Recent diagnosis of Covid 19 on September/2021 Chronic kidney disease stage III. Mostly diabetic nephropathy Diabetes mellitus Morbid obesity with BMI 39.9 Plan: This is a pleasant 71 years old female who presents with CHF Continue with IV Lasix and monitor input and output and electrolytes and crea tinine Check echocardiogram Cardiology consult, pulmonary consult Order Urine analysis Continue with Pulmicort. Labs and medication were reviewed.. Continue same treatment. Continue with symptomatic treatment. Resume home medication. Monitor lytes and vitals. DVT and GI prophylaxis. Further recommendations depends on the clinical course of the patient DVT prophylaxis: Subcutaneous heparin GI Prophylaxis: Pepcid PT/OT: Pending Prognosis is guarded
[2021-12-17] MEDS ORDERED: FAMOTIDINE 20 MG/2 ML VIAL IV SCH (14:00)
[2021-12-17] MEDS: METOPROLOL TARTRATE 50 MG TAB PO SCH (14:01)
[2021-12-17] MEDS ORDERED: IPRATROPIUM-ALBUTEROL 3 ML NEB INHALATION PRN (14:29)
--- NOTE | 2021-12-17 14:30 | P.CNPUL ---
History of Present Illness Consult date: 12/17/21 Requesting physician: Robyn Marinelli Reason for consult: dyspnea, hypoxemia, pleural effusion, abnormal CXR/CT Chief complaint: Shortness of breath. History of present illness: Pulmonary consult dated 12/17/2021. 71-year-old female, who presents to the emergency department, complaining of shortness of breath. The patient sees one of my partners in the office for her COPD, and her primary care physician is Dr. Sathish Banks. Apparently, according to the patient's daughter, the patient herself had coronavirus infection in September, and has been declining since that time. The patient apparently is been having progressive shortness of breath with any activity. She apparently denies any chest pain or chest discomfort. There is no cough, and there is no phlegm production. No fever or chills. The patient was seen in the emergency department, and admitted with a diagnosis of fluid overload/CHF. Currently, the patient's resting comfortably, in no acute distress. She does feel better today than when she came into the hospital. Currently, she is on 10 L high flow O2, with saturations at 95%. Respiratory rate is 20 and heart rate is 95. Current labs include a white count 4.8, hemoglobin 9.3, hematocrit 32.2, and platelet count 139,000. Sodium 138, potassium 4.5, chlorides 94, CO2 36, anion gap 8, BUN 41, and creatinine 1.68. N-terminal proBNP was 1700. Troponin was normal. Chest x-ray from December 16 shows cardiomegaly, with pulmonary vascular congestion and bilateral pleural effusions, consistent with CHF. Review of Systems REVIEW OF SYSTEMS: CONSTITUTIONAL: Weakness. NEUROLOGIC: [ Negative.] HEENT: [ Negative.] CARDIAC: [Negative.] PULMONARY: Shortness of breath. GI: [Negative.] : [Negative.] RHEUMATOLOGIC: [ Negative.] IMMUNOLOGIC: [ Negative.] ENDOCRINE: [Negative. ] DERMATOLOGIC: [Negative.] Past Medical History Past Medical History: COPD, Diabetes Mellitus, Hypertension Additional Past Medical History / Comment(s): ARDS secondary to pneumonia more than 10 years ago requiring tracheostomy tube insertion, COPD with established FEV1 of 41% of predicted, diabetes mellitus, hypertension, history of morbid obesity History of Any Multi-Drug Resistant Organisms: None Reported Past Surgical History: Cholecystectomy, Hysterectomy Past Anesthesia/Blood Transfusion Reactions: No Reported Reaction Past Psychological History: Anxiety Past Alcohol Use History: None Reported Past Drug Use History: None Reported - Past Family History Mother Family Medical History: Congestive Heart Failure (CHF), Diabetes Mellitus Additional Family Medical History / Comment(s): The patient's mother had congestion heart failure and diabetes mellitus in the father had Parkinson's disease. Medications and Allergies Home Medications Medication Instructions Recorded Confirmed Type Albuterol Sulfate [Proair Hfa] 1 - 2 puff INHALATION RT-Q6H PRN 05/22/19 12/17/21 History Levothyroxine Sodium [Synthroid] 88 mcg PO DAILY 05/22/19 12/17/21 History Montelukast [Singulair] 10 mg PO HS 05/22/19 12/17/21 History Pravastatin Sodium [Pravachol] 40 mg PO HS 05/22/19 12/17/21 History Sertraline [Zoloft] 150 mg PO HS 05/22/19 12/17/21 History Thyroid,Pork [Quality Control Representative Thyroid] 30 mg PO DAILY 05/22/19 12/17/21 History Tiotropium 18 Mcg/Puff [Spiriva] 1 cap INHALATION RT-DAILY 05/22/19 12/17/21 History amLODIPine [Norvasc] 10 mg PO DAILY 05/22/19 12/17/21 History Insulin Glargine [Lantus Vial] See Protocol SQ HS 08/27/19 12/17/21 History Ipratropium-Albuterol Nebulize 3 ml INHALATION RT-Q4H 01/16/20 12/17/21 History [Duoneb 0.5 mg-3 mg/3 ml Soln] Budesonide [Pulmicort] 0.5 mg INHALATION RT-BID 12/16/21 12/17/21 History Ergocalciferol (Vitamin D2) 1,250 mcg PO CALIXTO 12/16/21 12/17/21 History [Drisdol (50,000 Iu)] Furosemide [Lasix] 20 mg PO DAILY 12/16/21 12/17/21 History INSULIN ASPART (NovoLOG) [NovoLOG 10 - 15 unit SQ PC-TID PRN 12/16/21 12/17/21 History (formulary)] Iron 18 mg PO BID 12/16/21 12/17/21 History Losartan Potassium 50 mg PO DAILY 12/16/21 12/17/21 History busPIRone HCl [Buspar] 5 mg PO TID 12/16/21 12/17/21 History hydrALAZINE HCL 50 mg PO Q8H 12/16/21 12/17/21 History Budesonide/Formoterol Fumarate 2 puff INHALATION RT-BID 12/17/21 12/17/21 History [Symbicort 80-4.5 Mcg Inhaler] Allergies Allergy/AdvReac Type Severity Reaction Status Date / Time amoxicillin Allergy Anaphylaxis Verified 12/16/21 17:51 Penicillins Allergy Anaphylaxis Verified 12/16/21 17:51 zolpidem [From Ambien] AdvReac Confusion/A Verified 12/16/21 17:51 MS Physical Exam Osteopathic Statement: *. No significant issues noted on an osteopathic structural exam other than those noted in the History and Physical/Consult. Vitals: Vital Signs Temp Pulse Pulse Resp BP BP Pulse Ox 12/17/21 14:00 98.2 F 95 20 170/75 95 12/17/21 08:20 98.4 F 89 22 150/68 88 L 12/17/21 07:40 95 12/17/21 07:27 101 H 95 12/17/21 04:00 97.9 F 79 18 179/79 94 L 12/17/21 02:00 85 24 12/17/21 00:00 98.0 F 80 24 179/75 90 L 12/16/21 22:00 98.0 F 85 26 H 213/93 90 L 12/16/21 21:30 71 22 117/63 93 L 12/16/21 17:07 74 12/16/21 16:57 74 12/16/21 14:29 97.4 F L 77 20 113/71 90 L Intake and Output 12/16/21 12/17/21 12/17/21 22:59 06:59 14:59 Intake Total 120 Output Total 400 Balance -400 120 Intake: Oral 120 Output: Urine 400 Other: # Voids 1 2 # Bowel Movements 1 1 Weight 98.883 kg No acute distress, oriented 3. Currently on 10 L high flow O2. No conversational dyspnea or use of accessory muscles. HEENT examination is grossly unremarkable. Neck supple. Full range of motion. No adenopathy thyromegaly or neck vein distention. Cardiovascular examination reveals regular rhythm rate. S1-S2 normal. No S3 or S4. No discernible murmur noted. Heart sounds are distant. Heart rate 95 bpm. Lungs reveal scattered rhonchi. No wheezes. Bibasilar crackles are noted. Saturations are 95% on 10 L high flow O2. Abdomen soft bowel sounds are heard. No masses or tenderness. Extremities are intact. No cyanosis or clubbing. Trace edema is noted. Skin is without rash or lesion. Neurologic examination is brief but nonfocal. Results - Laboratory Findings CBC and BMP: 12/17/21 08:34 12/17/21 08:34 PT/INR, D-dimer PT 10.3 sec (9.0-12.0) 12/16/21 16:11 INR 0.9 (<1.2) 12/16/21 16:11 D-Dimer 0.56 mg/L FEU (<0.60) 12/16/21 16:11 Abnormal lab findings: Abnormal Labs 12/16/21 12/16/21 12/16/21 16:11 16:11 22:25 Hgb 9.1 L Hct 31.1 L MCH 23.9 L MCHC 29.3 L RDW 15.7 H Plt Count 145 L Lymphocytes # 0.3 L Chloride 96 L Carbon Dioxide 32 H BUN 39 H Creatinine 1.71 H Glucose 206 H POC Glucose (mg/dL) 313 H Total Protein 6.1 L 12/17/21 12/17/21 12/17/21 05:58 08:34 08:34 Hgb 9.3 L Hct 32.2 L MCH 24.1 L MCHC 28.9 L RDW 15.6 H Plt Count 139 L Lymphocytes # 0.4 L Chloride 94 L Carbon Dioxide 36 H BUN 41 H Creatinine 1.68 H Glucose 209 H POC Glucose (mg/dL) 177 H Total Protein 12/17/21 11:44 Hgb Hct MCH MCHC RDW Plt Count Lymphocytes # Chloride Carbon Dioxide BUN Creatinine Glucose POC Glucose (mg/dL) 166 H Total Protein - Diagnostic Findings Chest x-ray: image reviewed Assessment and Plan Assessment: Shortness of breath, likely mostly related to underlying CHF/fluid overload. There also may be a component of COPD exacerbation. Recent history of coronavirus infection, September,. Prior history of acute respiratory distress syndrome, requiring prolonged intubation and mechanical ventilation, and eventual tracheostomy tube insertion. History of severe COPD, with an FEV1 percent is 41. History of hypothyroidism. History of diabetes mellitus. History of hypertension. Morbid obesity. Plan: Plan dated 12/17/2021. Currently, the patient is receiving her usual medications, including Lasix. The patient will also be placed on her normal pulmonary medications. We will minoo nue to follow and make recommendations where appropriate. She does feel better today. I don't believe she needs any corticosteroids at this time. Prognosis is certainly guarded. Labs, x-rays, and medications are reviewed. Time with Patient: Greater than 30
[2021-12-17] MEDS: IPRATROPIUM-ALBUTEROL 3 ML NEB INHALATION SCH ×2 (15:58→19:47)
[2021-12-17 16:34] LABS: Glucose,Whole Blood 104 mg/dL (75-99)
[2021-12-17 20:17] LABS: Glucose,Whole Blood 151 mg/dL (75-99)
[2021-12-17] MEDS: MONTELUKAST 10 MG TAB PO SCH (20:27)
[2021-12-17] MEDS: PRAVASTATIN SODIUM 40 MG TAB PO SCH (20:27)
[2021-12-17] MEDS: SERTRALINE 50 MG TAB PO SCH (20:27)
[2021-12-17] MEDS: HEPARIN SODIUM,PORCINE/PF 5,000 UNIT/0.5 ML SYRINGE SQ SCH (20:27)
[2021-12-17] MEDS: LORazepam 2 MG/ML INJ IV PRN (20:29)
[2021-12-18 04:40] LABS: Appearance,Urine Cloudy (Clear); Bacteria,Urine Moderate /hpf; Bilirubin,Urine Negative (Negative); Blood,Urine Negative (Negative); Color,Urine Yellow; Glucose,Urine (UA) Negative (Negative); Hyaline Casts,Urine 27 /lpf (0-2); Ketones,Urine Negative (Negative); Leukocyte Esterase,Urine Large (Negative); Mucus,Urine Rare /hpf; Nitrite,Urine Negative (Negative); PH, Urine 5.5 (5.0-8.0); Protein,Urine 2+ (Negative); RBC,Urine 1 /hpf (0-5); Specific Gravity,Urine 1.013 (1.001-1.035); Squamous Epithelial Cell,Urine 2 /hpf (0-4); Urobilinogen,Urine <2.0 mg/dL (<2.0); WBC,Urine 70 /hpf (0-5)
[2021-12-18] MEDS: hydrALAZINE HCL 50 MG TAB PO SCH ×3 (05:52→20:54)
[2021-12-18] MEDS: LEVOTHYROXINE 88 MCG TAB PO SCH (05:52)
[2021-12-18 06:13] LABS: Glucose,Whole Blood 182 mg/dL (75-99)
[2021-12-18] MEDS: INSULIN ASPART (NovoLOG) 100 UNIT/ML VIAL SQ SCH ×4 (06:24→20:55)
[2021-12-18] MEDS: SYMBICORT 160-4.5 MCG INHALER INHALATION SCH ×2 (08:20→20:10)
[2021-12-18] MEDS: IPRATROPIUM-ALBUTEROL 3 ML NEB INHALATION SCH ×4 (08:20→20:10)
[2021-12-18] MEDS: FAMOTIDINE 20 MG TAB PO SCH (08:53)
[2021-12-18] MEDS: LOSARTAN 50 MG TAB PO SCH (08:53)
[2021-12-18] MEDS: METOPROLOL TARTRATE 50 MG TAB PO SCH (08:53)
[2021-12-18] MEDS: busPIRone HCl 5 MG TAB PO SCH ×3 (08:53→20:54)
[2021-12-18] MEDS: FUROSEMIDE 10 MG/ML 4 ML VIAL IV SCH ×2 (08:53→20:53)
[2021-12-18] MEDS: amLODIPine 10 MG TAB PO SCH (08:53)
[2021-12-18] MEDS: FERROUS SULFATE 325 MG TAB PO SCH (08:53)
[2021-12-18] MEDS: HEPARIN SODIUM,PORCINE/PF 5,000 UNIT/0.5 ML SYRINGE SQ SCH ×2 (08:53→20:53)
[2021-12-18] MEDS: THYROID, PORK 30 MG TAB PO SCH (08:54)
[2021-12-18] MEDS: ERGOCALCIFEROL 1,250 MCG (50,000 IU) CAPSULE PO SCH (08:54)
[2021-12-18 11:42] LABS: Glucose,Whole Blood 104 mg/dL (75-99)
[2021-12-18] MEDS ORDERED: LEVOFLOXACIN 500MG-D5W PMX 500 MG in DEXTROSE/WATER 1 100ML.BAG IVPB SCH ×2 (11:45→13:00)
--- NOTE | 2021-12-18 11:49 | P.PN ---
Subjective This is a pleasant 71 years old female with past medical history of Diabetes Mellitus, Hypertension, COPD with established FEV1 of 41% of predicted,history of morbid obesity. Patient recently diagnosed with covid last September with chronic hypoxic respiratory failure. She is on 4-5 L/m of oxygen but since she got Covid her oxygen requirements went up to 6-9 L/m at home as she states. 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 Presents because of dyspnea of 2 days' duration, no paroxysmal nocturnal dyspnea or orthopnea. She denies chest pain but she has little cough and plastic drain phlegm but this is a chronic. She denies abdominal pain or vomiting or diarrhea. No dysuria or urgency. No headache or dizziness or weakness or numbness. She quit smoking. No alcohol or illicit drugs. She has chronic gait instability, she cannot walk for long distances because of her breathing pattern. On admission patient is hypoxic, she is saturating 95% on Evelyn, oxygen via nasal cannula CBC showed only mild anemia 9.1 and mild thrombocytopenia at 145 with normal WBC. D-dimer is normal 0.56. INR 0.9 Creatinine elevated 1.7, compared to baseline of 1.1-1.3 Chest x-ray: Pulmonary vascular congestion and pleural effusions. CHF EKG showing normal sinus rhythm at [address]-T changes. Echocardiogram on 2018: Showed a preserved ejection fraction of 55-60% In the emergency room patient was started on IV Lasix and echocardiogram was ordered 12/18/2021 Patient is awake and alert and she reports improvement in her breathing pattern and her oxygen requirement done down from 10 down to 8 L/m. She feels easier to bring as well. Blood pressure is better controlled after adding metoprolol, currently 140/61. No labs from today. Ejection fraction showed 55-60% with moderate to severe pulmonary hypertension. Also patient has evidence of UTI, she is ALLERGIC to penicillin and she was started on Levaquin Objective - Vital Signs Vital signs: Vital Signs Temp 98.2 F 12/18/21 08:50 Pulse 68 12/18/21 08:50 Resp 20 12/18/21 08:50 BP 140/61 12/18/21 08:50 Pulse Ox 94 L 12/18/21 08:50 Intake & Output 12/17/21 12/18/21 12/18/21 17:59 06:59 18:59 Intake Total Output Total Balance Intake: Oral Output: Urine Stool Urine/Stool Mix Other: # Voids # Bowel Movements - Exam -GENERAL: The patient is alert and oriented x3, not in any acute distress. Obese with BMI of 39.9 HEENT: Pupils are round and equally reacting to light. EOMI. No scleral icterus. No conjunctival pallor. Normocephalic, atraumatic. No pharyngeal erythema. No thyromegaly. CARDIOVASCULAR: S1 and S2 present. No murmurs, rubs, or gallops. -PULMONARY: Chest is clear to auscultation, no wheezing . Decreased air entry on both sides. Bilateral basal crepitation ABDOMEN: Soft, nontender, nondistended, normoactive bowel sounds. No palpable organomegaly. MUSCULOSKELETAL: No joint swelling or deformity. -EXTREMITIES: No cyanosis, clubbing, Bilateral pitting leg edema NEUROLOGICAL: Gross neurological examination did not reveal any focal deficits. SKIN: No rashes. No petechiae - Labs CBC & Chem 7: 12/17/21 08:34 12/17/21 08:34 Labs: Abnormal Lab Results - Last 24 Hours (Table) 12/17/21 12/17/21 12/17/21 Range/Units 08:34 08:34 11:44 Hgb 9.3 L (11.4-16.0) gm/dL Hct 32.2 L (34.0-46.0) % MCH 24.1 L (25.0-35.0) pg MCHC 28.9 L (31.0-37.0) g/dL RDW 15.6 H (11.5-15.5) % Plt Count 139 L (150-450) k/uL Lymphocytes # 0.4 L (1.0-4.8) k/uL Chloride 94 L (98-107) mmol/L Carbon Dioxide 36 H (22-30) mmol/L BUN 41 H (7-17) mg/dL Creatinine 1.68 H (0.52-1.04) mg/dL Glucose 209 H (74-99) mg/dL POC Glucose (mg/dL) 166 H (75-99) mg/dL Urine Appearance (Clear) Urine Protein (Negative) Ur Leukocyte Esterase (Negative) Urine WBC (0-5) /hpf Urine WBC Clumps (None) /hpf Urine Bacteria (None) /hpf Hyaline Casts (0-2) /lpf Urine Mucus (None) /hpf 12/17/21 12/17/21 12/18/21 Range/Units 16:32 20:15 04:15 Hgb (11.4-16.0) gm/dL Hct (34.0-46.0) % MCH (25.0-35.0) pg MCHC (31.0-37.0) g/dL RDW (11.5-15.5) % Plt Count (150-450) k/uL Lymphocytes # (1.0-4.8) k/uL Chloride (98-107) mmol/L Carbon Dioxide (22-30) mmol/L BUN (7-17) mg/dL Creatinine (0.52-1.04) mg/dL Glucose (74-99) mg/dL POC Glucose (mg/dL) 104 H 151 H (75-99) mg/dL Urine Appearance Cloudy H (Clear) Urine Protein 2+ H (Negative) Ur Leukocyte Esterase Large H (Negative) Urine WBC 70 H (0-5) /hpf Urine WBC Clumps Few H (None) /hpf Urine Bacteria Moderate H (None) /hpf Hyaline Casts 27 H (0-2) /lpf Urine Mucus Rare H (None) /hpf 12/18/21 Range/Units 06:12 Hgb (11.4-16.0) gm/dL Hct (34.0-46.0) % MCH (25.0-35.0) pg MCHC (31.0-37.0) g/dL RDW (11.5-15.5) % Plt Count (150-450) k/uL Lymphocytes # (1.0-4.8) k/uL Chloride (98-107) mmol/L Carbon Dioxide (22-30) mmol/L BUN (7-17) mg/dL Creatinine (0.52-1.04) mg/dL Glucose (74-99) mg/dL POC Glucose (mg/dL) 182 H (75-99) mg/dL Urine Appearance (Clear) Urine Protein (Negative) Ur Leukocyte Esterase (Negative) Urine WBC (0-5) /hpf Urine WBC Clumps (None) /hpf Urine Bacteria (None) /hpf Hyaline Casts (0-2) /lpf Urine Mucus (None) /hpf Microbiology - Last 24 Hours (Table) 12/18/21 04:15 Urine Culture - Preliminary Urine,Voided Assessment and Plan Assessment: New-onset Acute congestive heart failure, diastolic with ejection fraction 55- 60% COPD with exacerbation Acute urinary tract infection Acute and chronic hypoxic respiratory failure Acute kidney injury, chronic kidney disease Moderate to severe pulmonary hypertension Recent diagnosis of Covid 19 on September/2021 Chronic kidney disease stage III. Mostly diabetic nephropathy Diabetes mellitus Morbid obesity with BMI 39.9 Plan: This is a pleasant 71 years old female who presents with CHF Continue with IV Lasix and monitor input and output and electrolytes and creatinine Check echocardiogram Cardiology consult, pulmonary consult Order Urine analysis Continue with Pulmicort. Labs and medication were reviewed.. Continue same treatment. Continue with symptomatic treatment. Resume home medication. Monitor lytes and vitals. DVT and GI prophylaxis. Further recommendations depends on the clinical course of the patient DVT prophylaxis: Subcutaneous heparin GI Prophylaxis: Pepcid PT/OT: Pending Prognosis is guarded
--- NOTE | 2021-12-18 12:54 | P.PN ---
Subjective Progress Note Date: 12/18/21 Principal diagnosis: Shortness of breath. Pulmonary consult dated 12/17/2021. 71-year-old female, who presents to the emergency department, complaining of shortness of breath. The patient sees one of my partners in the office for her COPD, and her primary care physician is Dr. Sathish Banks. Apparently, according to the patient's daughter, the patient herself had coronavirus infection in September, and has been declining since that time. The patient apparently is been having progressive shortness of breath with any activity. She apparently denies any chest pain or chest discomfort. There is no cough, and there is no phlegm production. No fever or chills. The patient was seen in the emergency department, and admitted with a diagnosis of fluid overload/CHF. Currently, the patient's resting comfortably, in no acute distress. She does feel better today than when she came into the hospital. Currently, she is on 10 L high flow O2, with saturations at 95%. Respiratory rate is 20 and heart rate is 95. Current labs include a white count 4.8, hemoglobin 9.3, hematocrit 32.2, and platelet count 139,000. Sodium 138, potassium 4.5, chlorides 94, CO2 36, anion gap 8, BUN 41, and creatinine 1.68. N-terminal proBNP was 1700. Troponin was normal. Chest x-ray from December 16 shows cardiomegaly, with pulmonary vascular congestion and bilateral pleural effusions, consistent with CHF. Progress note dated 12/18/2021. She is a 71-year-old female well-known to our service. She has a history of shortness of breath, and has a history of CHF and COPD. The patient was admitted with a diagnosis of progressive shortness breath, without chest pain or chest discomfort, and without cough or phlegm production. In the emergency department, she was diagnosed with fluid overload/CHF. She is currently on 10 L high flow nasal O2. She is resting comfortably in bed. She is not demonstrating any respiratory distress, use of accessory muscles, or conversational dyspnea. Laboratory data today includes a urine which is yellow and cloudy, 2+ protein. Leukocyte esterase was large positive. WBCs were 70. There are few WBC clumps, and moderate bacteria. The patient is currently on Levaquin. Objective - Vital Signs Vital signs: Vital Signs Temp 98.2 F 12/18/21 08:50 Pulse 92 12/18/21 11:50 Resp 18 12/18/21 11:50 BP 140/61 12/18/21 08:50 Pulse Ox 94 L 12/18/21 08:50 Intake & Output 12/17/21 12/18/21 12/18/21 17:59 06:59 18:59 Intake Total 180 Output Total Balance 180 Intake: Oral 180 Output: Urine Stool Urine/Stool Mix Other: # Voids # Bowel Movements - Exam No acute distress, oriented 3. Currently on 8 L high flow O2. No conversati onal dyspnea or use of accessory muscles. Saturations are 94%. HEENT examination is grossly unremarkable. Neck supple. Full range of motion. No adenopathy thyromegaly or neck vein distention. Cardiovascular examination reveals regular rhythm rate. S1-S2 normal. No S3 or S4. No discernible murmur noted. Heart sounds are distant. Heart rate 92 bpm. Lungs reveal scattered rhonchi. No wheezes. Bibasilar crackles are noted. Saturations are 94% on 8 L high flow nasal O2. Abdomen soft bowel sounds are heard. No masses or tenderness. Extremities are intact. No cyanosis or clubbing. Trace edema is noted. Skin is without rash or lesion. Neurologic examination is brief but nonfocal. - Labs CBC & Chem 7: 12/17/21 08:34 12/17/21 08:34 Labs: Abnormal Lab Results - Last 24 Hours (Table) 12/17/21 12/17/21 12/18/21 Range/Units 16:32 20:15 04:15 POC Glucose (mg/dL) 104 H 151 H (75-99) mg/dL Urine Appearance Cloudy H (Clear) Urine Protein 2+ H (Negative) Ur Leukocyte Esterase Large H (Negative) Urine WBC 70 H (0-5) /hpf Urine WBC Clumps Few H (None) /hpf Urine Bacteria Moderate H (None) /hpf Hyaline Casts 27 H (0-2) /lpf Urine Mucus Rare H (None) /hpf 12/18/21 12/18/21 Range/Units 06:12 11:40 POC Glucose (mg/dL) 182 H 104 H (75-99) mg/dL Urine Appearance (Clear) Urine Protein (Negative) Ur Leukocyte Esterase (Negative) Urine WBC (0-5) /hpf Urine WBC Clumps (None) /hpf Urine Bacteria (None) /hpf Hyaline Casts (0-2) /lpf Urine Mucus (None) /hpf Microbiology - Last 24 Hours (Table) 12/18/21 04:15 Urine Culture - Preliminary Urine,Voided Assessment and Plan Assessment: Shortness of breath, likely mostly related to underlying CHF/fluid overload. There also may be a component of COPD exacerbation. Recent history of coronavirus infection, September,. Prior history of acute respiratory distress syndrome, requiring prolonged intubation and mechanical ventilation, and eventual tracheostomy tube insertion. History of severe COPD, with an FEV1 percent is 41. History of hypothyroidism. History of diabetes mellitus. History of hypertension. Morbid obesity. Plan: Plan dated 12/17/2021. Currently, the patient is receiving her usual medications, including Lasix. The patient will also be placed on her normal pulmonary medications. We will continue to follow and make recommendations where appropriate. She does feel better today. I don't believe she needs any corticosteroids at this time. Prognosis is certainly guarded. Labs, x-rays, and medications are reviewed. Plan dated 12/18/2021. The patient actually looks very comfortable, is by the fact that she is on 8 L high flow nasal O2. Saturations are 94%. She is not manifesting any overt signs of respiratory failure or difficulty, such as conversational dyspnea or use of accessory muscles. Current temperature is 98.2 degrees, heart rate 92, respiratory rate 18, and blood pressure 140/61. Mean pressure is 87. Labs, x- rays, and medications are all reviewed. Everything appears to be appropriate. We will continue to follow and make additional recommendations where appropriate. Prognosis is guarded. Corticosteroids were not recommended at this time. Time with Patient: Less than 30
--- NOTE | 2021-12-18 12:58 | P.PN ---
Subjective Progress Note Date: 12/18/21 This is a pleasant 71-year-old female past medical history significant for COPD requiring supplemental home oxygen diabetes hypertension hypothyroidism and morbid obesity. 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 We have been asked to see in consultation for acute congestive heart failure. Patient was brought into the ER by her daughter for increased shortness of breath. Patient had Covid in September 2021 and since that time she has been requiring increased supplemental oxygen. Per daughter she has been declining since September. Patient is seen resting in bed in no acute distress on 10 L nasal cannula. At home she usually required 4-5 L. She reports she has moderate exertional dyspnea. She does feel better since starting the IV Lasix. monitoring analyst reviewed patient is sinus rhythm. Patient's echocardiogram shows a normal LV function with an ejection fraction of 60-65%, mild aortic stenosis, mild mitral valve regurgitation, and moderate to severe pulmonary hypertension. Patient remains on IV Lasix 40 mg twice a day. States her breathing is much better today. Creatinine has improved is 1.6 today. Objective - Vital Signs Vital signs: Vital Signs Temp 98.2 F 12/18/21 08:50 Pulse 92 12/18/21 11:50 Resp 18 12/18/21 11:50 BP 140/61 12/18/21 08:50 Pulse Ox 94 L 12/18/21 08:50 Intake & Output 12/17/21 12/18/21 12/18/21 17:59 06:59 18:59 Intake Total 180 Output Total Balance 180 Intake: Oral 180 Output: Urine Stool Urine/Stool Mix Other: # Voids # Bowel Movements - Exam PHYSICAL EXAM: VITAL SIGNS: Reviewed. GENERAL: Well-developed in no acute distress. HEENT: Head is normocephalic. Pupils are equal, round. Sclerae anicteric. Mucous membranes of the mouth are moist. NECK: Supple. No JVD or thyromegaly RESPIRATORY: Respirations even and unlabored. Lungs diminished to auscultation bilaterally. On supplement oxygen CARDIO: Regular rate and rhythm. S1 and S2 heard. No murmur or gallops. EXTREMITIES: Normal range of motion. No clubbing or cyanosis. Peripheral pulses intact. bilateral lower extremity edema NEURO: Orientated to person, time, mood is appropriate - Labs CBC & Chem 7: 12/17/21 08:34 12/17/21 08:34 Labs: Abnormal Lab Results - Last 24 Hours (Table) 12/17/21 12/17/21 12/18/21 Range/Units 16:32 20:15 04:15 POC Glucose (mg/dL) 104 H 151 H (75-99) mg/dL Urine Appearance Cloudy H (Clear) Urine Protein 2+ H (Negative) Ur Leukocyte Esterase Large H (Negative) Urine WBC 70 H (0-5) /hpf Urine WBC Clumps Few H (None) /hpf Urine Bacteria Moderate H (None) /hpf Hyaline Casts 27 H (0-2) /lpf Urine Mucus Rare H (None) /hpf 12/18/21 12/18/21 Range/Units 06:12 11:40 POC Glucose (mg/dL) 182 H 104 H (75-99) mg/dL Urine Appearance (Clear) Urine Protein (Negative) Ur Leukocyte Esterase (Negative) Urine WBC (0-5) /hpf Urine WBC Clumps (None) /hpf Urine Bacteria (None) /hpf Hyaline Casts (0-2) /lpf Urine Mucus (None) /hpf Microbiology - Last 24 Hours (Table) 12/18/21 04:15 Urine Culture - Preliminary Urine,Voided Assessment and Plan Assessment: Acute congestive heart failure unspecified COPD exacerbation 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 Katarina Brown, nurse practitioner, acting as scribe for signing physician.
[2021-12-18 13:44] LABS: Calcium 8.6 mg/dL (8.4-10.2)
[2021-12-18 13:47] LABS: Potassium 5.4 mmol/L (3.5-5.1)
[2021-12-18 16:32] LABS: Glucose,Whole Blood 191 mg/dL (75-99)
[2021-12-18 20:07] LABS: Glucose,Whole Blood 113 mg/dL (75-99)
[2021-12-18] MEDS: MONTELUKAST 10 MG TAB PO SCH (20:53)
[2021-12-18] MEDS: PRAVASTATIN SODIUM 40 MG TAB PO SCH (20:53)
[2021-12-18] MEDS: SERTRALINE 50 MG TAB PO SCH (20:54)
[2021-12-18] MEDS: LORazepam 2 MG/ML INJ IV PRN (23:24)
[2021-12-19 06:02] LABS: Glucose,Whole Blood 236 mg/dL (75-99)
[2021-12-19] MEDS: INSULIN ASPART (NovoLOG) 100 UNIT/ML VIAL SQ SCH ×4 (06:14→21:08)
[2021-12-19] MEDS: hydrALAZINE HCL 50 MG TAB PO SCH ×3 (06:14→21:07)
[2021-12-19] MEDS: LEVOTHYROXINE 88 MCG TAB PO SCH (06:14)
[2021-12-19 07:41] LABS: Calcium 8.4 mg/dL (8.4-10.2); Magnesium 1.9 mg/dL (1.6-2.3); Potassium 4.7 mmol/L (3.5-5.1)
--- NOTE | 2021-12-19 09:13 | P.PN ---
Subjective Progress Note Date: 12/19/21 Principal diagnosis: COPD/CHF The patient is a 71-year-old female patient with heart failure with preserved ejection fraction as well as chronic obstructive pulmonary disease as well as multiple comorbid conditions was admitted to the hospital with increasing shortness of breath and she was diagnosed with heart failure exacerbation as well as COPD exacerbation. She was seen this morning. She stated that her shortness of breath is better. She continues to have diminished breathing sounds bilaterally on examination and bilateral lower exam it is nonpitting edema noted as well. She underwent an echo which revealed normal LV function with mild aortic stenosis. Objective - Vital Signs Vital signs: Vital Signs Temp 97.8 F 12/19/21 04:00 Pulse 80 12/19/21 04:00 Resp 26 H 12/19/21 04:00 BP 127/58 12/19/21 04:00 Pulse Ox 89 L 12/19/21 04:00 Intake & Output 12/18/21 12/19/21 12/19/21 18:59 06:59 18:59 Intake Total 1080 Output Total 300 Balance 1080 -300 Weight 105 kg Intake: Oral 1080 Output: Urine 300 Stool 0 Other: # Voids 1 # Bowel Movements 1 - Constitutional General appearance: Present: no acute distress - Respiratory Respiratory: bilateral: diminished - Cardiovascular Rhythm: regular Heart sounds: normal: S1, S2 Abnormal Heart Sounds: Present: systolic murmur - Labs CBC & Chem 7: 12/17/21 08:34 12/19/21 06:45 Labs: Abnormal Lab Results - Last 24 Hours (Table) 12/18/21 12/18/21 12/18/21 Range/Units 11:40 12:53 16:30 Sodium 136 L (137-145) mmol/L Potassium 5.4 H (3.5-5.1) mmol/L Chloride 94 L (98-107) mmol/L Carbon Dioxide 35 H (22-30) mmol/L BUN 58 H (7-17) mg/dL Creatinine 2.20 H (0.52-1.04) mg/dL Glucose 128 H (74-99) mg/dL POC Glucose (mg/dL) 104 H 191 H (75-99) mg/dL 12/18/21 12/19/21 12/19/21 Range/Units 20:06 05:58 06:45 Sodium 135 L (137-145) mmol/L Potassium (3.5-5.1) mmol/L Chloride 94 L (98-107) mmol/L Carbon Dioxide 39 H (22-30) mmol/L BUN 57 H (7-17) mg/dL Creatinine 2.53 H (0.52-1.04) mg/dL Glucose 214 H (74-99) mg/dL POC Glucose (mg/dL) 113 H 236 H (75-99) mg/dL Microbiology - Last 24 Hours (Table) 12/18/21 04:15 Urine Culture - Preliminary Urine,Voided Assessment and Plan Assessment: Assessment #1 exacerbation of COPD #2 heart failure exacerbation secondary to heart failure with preserved ejection fraction #3 aortic stenosis #4 multiple comorbid conditions Plan #1 continue the current dose of Lasix IV #2 continue monitor the kidney function and electrolytes #3 the patient has been diuresing well on the current dose of Lasix #4 follow-up with the patient #5 the echo was reviewed and as described above
[2021-12-19] MEDS: FERROUS SULFATE 325 MG TAB PO SCH (09:19)
[2021-12-19] MEDS: THYROID, PORK 30 MG TAB PO SCH (09:19)
[2021-12-19] MEDS: FUROSEMIDE 10 MG/ML 4 ML VIAL IV SCH (09:19)
[2021-12-19] MEDS: amLODIPine 10 MG TAB PO SCH (09:19)
[2021-12-19] MEDS: METOPROLOL TARTRATE 50 MG TAB PO SCH (09:19)
[2021-12-19] MEDS: FAMOTIDINE 20 MG TAB PO SCH (09:19)
[2021-12-19] MEDS: HEPARIN SODIUM,PORCINE/PF 5,000 UNIT/0.5 ML SYRINGE SQ SCH ×2 (09:19→21:07)
[2021-12-19] MEDS: busPIRone HCl 5 MG TAB PO SCH ×2 (09:19→21:07)
--- NOTE | 2021-12-19 09:53 | P.NPCON ---
History of Present Illness - Reason for Consult acute renal failure, chronic renal failure - History of Present Illness Reason for consultation: Acute kidney injury on chronic kidney disease History of present illness: Patient is a 71-year-old female seen in renal consultation for acute kidney injury on chronic kidney disease. Patient has chronic kidney disease stage IIIB with baseline creatinine in the range of 1.2-1.4 secondary to diabetic kidney disease. Patient presented to the hospital with worsening shortness of breath. Patient states she wears about 78 L of oxygen at home. She was diagnosed COVID- 19 infection in September 2021 and since then has been requiring high amounts of oxygen. Currently she is on 8 L nasal cannula. Blood pressure stable. Chest x-ray was suggestive of fluid overload with bilateral pleural effusions. She is currently on IV Lasix 40 mg twice daily. Echocardiogram showed diastolic CHF with moderate to severe pulmonary hypertension. She has been voiding. No hematuria or dysuria. Urine output not accurately document. Patient has a long-standing history of diabetes. No fever or chills. No vomiting or diarrhea. Denies use of nonsteroidals. Creatinine on admission was 1.71 and is 2.53 today. Vital signs are stable. General: Awake and alert. Resting in bed. HEENT: Nasal cannula noted. LUNGS: Breath sounds decreased. HEART: Rate and Rhythm are regular. ABDOMEN: Soft, no distention. EXTREMITITES: 1+ edema. Past Medical History Past Medical History: COPD, Diabetes Mellitus, Hypertension Additional Past Medical History / Comment(s): ARDS secondary to pneumonia more than 10 years ago requiring tracheostomy tube insertion, COPD with established FEV1 of 41% of predicted, diabetes mellitus, hypertension, history of morbid obesity History of Any Multi-Drug Resistant Organisms: None Reported Past Surgical History: Cholecystectomy, Hysterectomy Past Anesthesia/Blood Transfusion Reactions: No Reported Reaction Past Psychological History: Anxiety Past Alcohol Use History: None Reported Past Drug Use History: None Reported - Past Family History Mother Family Medical History: Congestive Heart Failure (CHF), Diabetes Mellitus Additional Family Medical History / Comment(s): The patient's mother had congestion heart failure and diabetes mellitus in the father had Parkinson's disease. Medications and Allergies Home Medications Medication Instructions Recorded Confirmed Type Albuterol Sulfate [Proair Hfa] 1 - 2 puff INHALATION RT-Q6H PRN 05/22/19 12/17/21 History Levothyroxine Sodium [Synthroid] 88 mcg PO DAILY 05/22/19 12/17/21 History Montelukast [Singulair] 10 mg PO HS 05/22/19 12/17/21 History Pravastatin Sodium [Pravachol] 40 mg PO HS 05/22/19 12/17/21 History Sertraline [Zoloft] 150 mg PO HS 05/22/19 12/17/21 History Thyroid,Pork [Barge Captain Thyroid] 30 mg PO DAILY 05/22/19 12/17/21 History Tiotropium 18 Mcg/Puff [Spiriva] 1 cap INHALATION RT-DAILY 05/22/19 12/17/21 History amLODIPine [Norvasc] 10 mg PO DAILY 05/22/19 12/17/21 History Insulin Glargine [Lantus Vial] See Protocol SQ HS 08/27/19 12/17/21 History Ipratropium-Albuterol Nebulize 3 ml INHALATION RT-Q4H 01/16/20 12/17/21 History [Duoneb 0.5 mg-3 mg/3 ml Soln] Budesonide [Pulmicort] 0.5 mg INHALATION RT-BID 12/16/21 12/17/21 History Ergocalciferol (Vitamin D2) 1,250 mcg PO CALIXTO 12/16/21 12/17/21 History [Drisdol (50,000 Iu)] Furosemide [Lasix] 20 mg PO DAILY 12/16/21 12/17/21 History INSULIN ASPART (NovoLOG) [NovoLOG 10 - 15 unit SQ PC-TID PRN 12/16/21 12/17/21 History (formulary)] Iron 18 mg PO BID 12/16/21 12/17/21 History Losartan Potassium 50 mg PO DAILY 12/16/21 12/17/21 History busPIRone HCl [Buspar] 5 mg PO TID 12/16/21 12/17/21 History hydrALAZINE HCL 50 mg PO Q8H 12/16/21 12/17/21 History Budesonide/Formoterol Fumarate 2 puff INHALATION RT-BID 12/17/21 12/17/21 History [Symbicort 80-4.5 Mcg Inhaler] Allergies Allergy/AdvReac Type Severity Reaction Status Date / Time amoxicillin Allergy Anaphylaxis Verified 12/16/21 17:51 Penicillins Allergy Anaphylaxis Verified 12/16/21 17:51 zolpidem [From Ambien] AdvReac Confusion/A Verified 12/16/21 17:51 MS Physical Exam Vitals: Vital Signs Temp Pulse Pulse Resp BP Pulse Ox 12/19/21 08:00 98.1 F 72 20 133/64 95 12/19/21 04:00 97.8 F 80 26 H 127/58 89 L 12/19/21 02:00 83 18 12/18/21 23:50 97.6 F 79 18 140/64 94 L 12/18/21 20:24 72 12/18/21 20:10 89 12/18/21 20:00 97.9 F 80 18 134/64 93 L 12/18/21 17:45 71 20 141/65 94 L 12/18/21 15:14 88 18 12/18/21 15:02 90 18 12/18/21 13:40 98.2 F 76 18 143/70 94 L 12/18/21 11:50 92 18 12/18/21 11:38 90 18 Intake and Output 12/18/21 12/19/21 12/19/21 22:59 06:59 14:59 Intake Total 180 240 Output Total 0 300 Balance 180 -300 240 Intake: Oral 180 240 Output: Urine 300 Stool 0 0 Other: # Voids 1 # Bowel Movements 1 Weight 105 kg Results - Lab Results Most recent lab results Calcium 8.4 mg/dL (8.4-10.2) 12/19/21 06:45 Magnesium 1.9 mg/dL (1.6-2.3) 12/19/21 06:45 12/17/21 08:34 12/19/21 06:45 Assessment and Plan Plan: Assessment: 1. Acute kidney injury secondary to ATN secondary to cardiorenal syndrome. Creatinine was 1.7 on admission is 2.53 today. 2. Chronic kidney disease stage IIIB with baseline creatinine in the range of 1.2-1.4 in August 2019. Etiology is diabetic kidney disease. 3. Acute on chronic diastolic CHF with moderate to severe pulmonary hypertension. 4. Acute hypoxic respiratory failure. 5. Fluid overload. 6. Diabetes. 7. Anemia of chronic kidney disease. Rule out iron deficiency. 8. Hypertension with chronic kidney disease. Stable. Plan: Maintain IV Lasix. Cozaar stopped due to JEWEL. Check renal ultrasound. Repeat chest x-ray tomorrow morning. Check iron studies. Avoid nephrotoxins. Continue to monitor renal function and urine output.
--- NOTE | 2021-12-19 10:27 | US ---
EXAMINATION TYPE: US kidneys/renal and bladder DATE OF EXAM: 12/19/2021 COMPARISON: US CLINICAL HISTORY: jewel. JEWEL EXAM MEASUREMENTS: Right Kidney: 9.7 x 5.0 x 4.3 cm Left Kidney: 10.5 x 4.6 x 4.2 cm Right Kidney: Anechoic area seen lower pole: 1.0 x 1.1 x 0.9 cm. Cortex appears thin. Left Kidney: No hydronephrosis or masses seen. Cortex appears thin. Bladder: Unable to visualize. Bilateral Jets seen: No *Incidental finding: spleen appears enlarged measuring 17.7 cm as seen on prior exam. IMPRESSION: 1. Splenomegaly. 2. Renal parenchymal thinning in the right renal cyst.
[2021-12-19] MEDS: SYMBICORT 160-4.5 MCG INHALER INHALATION SCH ×2 (10:58→20:31)
[2021-12-19] MEDS: IPRATROPIUM-ALBUTEROL 3 ML NEB INHALATION SCH ×4 (10:59→20:31)
[2021-12-19 11:21] LABS: Glucose,Whole Blood 137 mg/dL (75-99)
--- NOTE | 2021-12-19 13:03 | XR ---
EXAMINATION TYPE: XR chest 1V portable DATE OF EXAM: 12/19/2021 HISTORY: Shortness of breath. COMPARISON: 12/16/2021 TECHNIQUE: Single view of the chest is submitted. FINDINGS: Demonstrated are scattered senescent parenchymal change. There is continued cardiomegaly with pulmonary venous congestion and interstitial infiltrates slightl y improved from prior study. Hilar and mediastinal structures are within normal limits. Degenerative changes are seen of the dorsal spine. IMPRESSION: 1. There is continued cardiomegaly with pulmonary venous congestion and interstitial infiltrates sli ghtly improved from prior study.
--- NOTE | 2021-12-19 13:48 | P.PN ---
Subjective Progress Note Date: 12/19/21 This is a 71-year-old female with past medical history of COPD, on home O2, diabetes mellitus type 2, hypertension admitted with shortness of breath, fluid overload, underlying CHF exacerbation and multiple other medical issues.Maintained on nebulized bronchodilators, Levaquin and Lasix IV push.Diuresing well on Lasix IV push, denies increased shortness of breath except positive exertional shortness of breath, denies cough. Decreasing edema. Worsening renal function, creatinine 2.53. Currently maintaining O2 sats in the high 80s to 2 mid 90s on 8 L high flow nasal cannula. Echo reported normal LV function, EF 55-60%, mild aortic stenosis, moderate to severe pulmonary hypertension. Afebrile Objective - Vital Signs Vital signs: Vital Signs Temp 98.1 F 12/19/21 08:00 Pulse 77 12/19/21 12:02 Resp 16 12/19/21 12:00 BP 117/57 12/19/21 12:00 Pulse Ox 93 L 12/19/21 12:00 Intake & Output 12/18/21 12/19/21 12/19/21 18:59 06:59 18:59 Intake Total 1080 240 Output Total 300 0 Balance 1080 -300 240 Weight 105 kg Intake: Oral 1080 240 Output: Urine 300 Stool 0 0 Other: # Voids 1 # Bowel Movements 1 - Exam Exam General: Alert and oriented 3, Sitting up in bed, NAD. Obese. Vitals reviewed Eyes: PERRL, EOMI, conjunctiva normal HENT: normocephalic, mucus membranes moist Neck: supple, no JVD Lungs: Diminished air entry, fine bibasilar crackles CV: Regular rate and rhythm, systolic murmur. Peripheral pulses 2+,decreased edema Abdomen: soft, nondistended, no organomegaly, +bs Skin: warm and dry, no rash. Neuro: Cranial nerves II through XII grossly intact. No focal deficits. - Labs CBC & Chem 7: 12/17/21 08:34 12/19/21 06:45 Labs: Abnormal Lab Results - Last 24 Hours (Table) 12/18/21 12/18/21 12/18/21 Range/Units 12:53 16:30 20:06 Sodium 136 L (137-145) mmol/L Potassium 5.4 H (3.5-5.1) mmol/L Chloride 94 L (98-107) mmol/L Carbon Dioxide 35 H (22-30) mmol/L BUN 58 H (7-17) mg/dL Creatinine 2.20 H (0.52-1.04) mg/dL Glucose 128 H (74-99) mg/dL POC Glucose (mg/dL) 191 H 113 H (75-99) mg/dL 12/19/21 12/19/21 12/19/21 Range/Units 05:58 06:45 11:16 Sodium 135 L (137-145) mmol/L Potassium (3.5-5.1) mmol/L Chloride 94 L (98-107) mmol/L Carbon Dioxide 39 H (22-30) mmol/L BUN 57 H (7-17) mg/dL Creatinine 2.53 H (0.52-1.04) mg/dL Glucose 214 H (74-99) mg/dL POC Glucose (mg/dL) 236 H 137 H (75-99) mg/dL Microbiology - Last 24 Hours (Table) 12/18/21 04:15 Urine Culture - Preliminary Urine,Voided Group D Enterococcus Assessment and Plan Assessment: Acute on chronic CHF exacerbation, diastolic dysfunction Moderate to severe pulmonary hypertension, RVSP 55.45 Recent covid infection infection 09/27 Acute on chronic hypoxic respiratory failure secondary to all the above COPD Acute on Chronic kidney disease, stage IIIB, secondary to ATN related to cardiorenal syndrome Anemia of chronic kidney disease Hypertension Aortic Stenosis,mild Hypothyroidism Diabetes mellitus type 2 Morbid obesity, BMI 42.3 plan: Continue on current medication regime ,monitoring and symptomatic treatment.weaning of oxygen in progress. Diuretics as per cardiology and nephrology. Close monitoring of renal function with repeat labs ordered for a.m. iron studies pending. Chest x-ray and Renal ultrasound pending. Increase ambulation as tolerated. Maintain nebulized bronchodilators and Levaquin. Discharge planning in progress for potentially tomorrow. Patient lives at home with daughter who has assistance in the home. The impression and plan of care has been dictated as directed. : I performed a history and examination of this patient, discussed the same with the dictator. I agree with the dictator's note ,documented as a scribe. Any additional findings or plans will be noted.
[2021-12-19 15:33] LABS: % Iron Saturation 6.98 (12.00-45.00)
--- NOTE | 2021-12-19 15:35 | P.PN ---
Subjective Progress Note Date: 12/19/21 71-year-old female, who presents to the emergency department, complaining of shortness of breath. The patient sees one of my partners in the office for her COPD, and her primary care physician is Dr. Sathish Banks. Apparently, according to the patient's daughter, the patient herself had coronavirus inf ection in September, and has been declining since that time. The patient apparently is been having progressive shortness of breath with any activity. She apparently denies any chest pain or chest discomfort. There is no cough, and there is no phlegm production. No fever or chills. The patient was seen in the emergency department, and admitted with a diagnosis of fluid overload/CHF. Currently, the patient's resting comfortably, in no acute distress. She does feel better today than when she came into the hospital. Currently, she is on 10 L high flow O2, with saturations at 95%. Respiratory rate is 20 and heart rate is 95. Current labs include a white count 4.8, hemoglobin 9.3, hematocrit 32.2, and platelet count 139,000. Sodium 138, potassium 4.5, chlorides 94, CO2 36, anion gap 8, BUN 41, and creatinine 1.68. N-terminal proBNP was 1700. Troponin was normal. Chest x-ray from December 16 shows cardiomegaly, with pulmonary vascular congestion and bilateral pleural effusions, consistent with CHF. Progress note dated 12/18/2021. She is a 71-year-old female well-known to our service. She has a history of shortness of breath, and has a history of CHF and COPD. The patient was admitted with a diagnosis of progressive shortness breath, without chest pain or chest discomfort, and without cough or phlegm production. In the emergency department, she was diagnosed with fluid ov erload/CHF. She is currently on 10 L high flow nasal O2. She is resting comfortably in bed. She is not demonstrating any respiratory distress, use of accessory muscles, or conversational dyspnea. Laboratory data today includes a urine which is yellow and cloudy, 2+ protein. Leukocyte esterase was large positive. WBCs were 70. There are few WBC clumps, and moderate bacteria. The patient is currently on Levaquin. On today's evaluation of 12/19/2021, the patient remains on 5 L O2 by nasal cannula. Noted the patient's baseline oxygen requirement is around 4 L O2 by nasal cannula. She is comfortable. No significant complaints. No chest pain. No altered mentation. Pulse ox on 5 L is around 93%. Note that during this current admission, the patient was being diuresis. The patient developed an acute kidney injury. Creatinine is up to 2.53 with a mean of 57 and the sodium level is at 135. Based on that, I made recommendations to discontinue the IV L asix for now. At the same time, the patient has a positive UTI. UA was abnormal and the patient had a enterococcus group D on her urine cultures. The patient remains on Levaquin to 250 mg every 48 hours. She is on Symbicort as maintenance and she is using DuoNeb nebulized units [id number]. Note that the patient had a recent cold deteriorated pneumonia from which she recovered. Repeat chest x-ray from today shows cardiomegaly and pulmonary asked her congestion and some increased interstitial markings bilaterally yet that improved compared to the previous chest x-ray. Objective - Vital Signs Vital signs: Vital Signs Temp 98.1 F 12/19/21 08:00 Pulse 72 12/19/21 08:00 Resp 20 12/19/21 08:00 BP 133/64 12/19/21 08:00 Pulse Ox 95 12/19/21 08:00 Intake & Output 12/18/21 12/19/21 12/19/21 18:59 06:59 18:59 Intake Total 1080 240 Output Total 300 Balance 1080 -300 240 Weight 105 kg Intake: Oral 1080 240 Output: Urine 300 Stool 0 Other: # Voids 1 # Bowel Movements 1 - Exam No acute distress, oriented 3. Currently on 5 L high flow O2. No conversational dyspnea or use of accessory muscles. Saturations are 94%. HEENT examination is grossly unremarkable. Neck supple. Full range of motion. No adenopathy thyromegaly or neck vein distention. Cardiovascular examination reveals regular rhythm rate. S1-S2 normal. No S3 or S4. No discernible murmur noted. Heart sounds are distant. Heart rate 92 bpm. Lungs reveal scattered rhonchi. No wheezes. Bibasilar crackles are noted. Sat urations are 94% on 8 L high flow nasal O2. Abdomen soft bowel sounds are heard. No masses or tenderness. Extremities are intact. No cyanosis or clubbing. Trace edema is noted. Skin is without rash or lesion. Neurologic examination is brief but nonfocal. - Labs CBC & Chem 7: 12/17/21 08:34 12/19/21 06:45 Labs: Abnormal Lab Results - Last 24 Hours (Table) 12/18/21 12/18/21 12/18/21 Range/Units 11:40 12:53 16:30 Sodium 136 L (137-145) mmol/L Potassium 5.4 H (3.5-5.1) mmol/L Chloride 94 L (98-107) mmol/L Carbon Dioxide 35 H (22-30) mmol/L BUN 58 H (7-17) mg/dL Creatinine 2.20 H (0.52-1.04) mg/dL Glucose 128 H (74-99) mg/dL POC Glucose (mg/dL) 104 H 191 H (75-99) mg/dL 12/18/21 12/19/21 12/19/21 Range/Units 20:06 05:58 06:45 Sodium 135 L (137-145) mmol/L Potassium (3.5-5.1) mmol/L Chloride 94 L (98-107) mmol/L Carbon Dioxide 39 H (22-30) mmol/L BUN 57 H (7-17) mg/dL Creatinine 2.53 H (0.52-1.04) mg/dL Glucose 214 H (74-99) mg/dL POC Glucose (mg/dL) 113 H 236 H (75-99) mg/dL 12/19/21 Range/Units 11:16 Sodium (137-145) mmol/L Potassium (3.5-5.1) mmol/L Chloride (98-107) mmol/L Carbon Dioxide (22-30) mmol/L BUN (7-17) mg/dL Creatinine (0.52-1.04) mg/dL Glucose (74-99) mg/dL POC Glucose (mg/dL) 137 H (75-99) mg/dL Microbiology - Last 24 Hours (Table) 12/18/21 04:15 Urine Culture - Preliminary Urine,Voided Group D Enterococcus Assessment and Plan Plan: 1 acute on chronic hypoxic respiratory failure. The patient had increased in ox ygen requirements. Noted the patient had a recent COVID 19 pneumonia from which she recovered. She comes in with CHF and fluid overload and the most recent chest x-ray from today shows improvement in the interstitial markings bilaterally. There is some background abnormalities. The patient is down to 5 L O2 nasal cannula, her baseline is around 4 L. Shortness of breath, likely mostly related to underlying CHF/fluid overload. There also may be a component of COPD exacerbation. Meanwhile, the patient developed an acute kidney injury due to diuresis and the diuretics will be discontinued for now. 2 Recent history of coronavirus infection, September,. 3 Prior history of acute respiratory distress syndrome, requiring prolonged intubation and mechanical ventilation, and eventual tracheostomy tube insertion. 4 History of severe COPD, with an FEV1 percent is 41. 5 History of hypothyroidism. 6 History of diabetes mellitus. 7 History of hypertension. 8 Previous COVID , Sep 2021 9 CKD stage 3B, with a component of an acute kidney injury, possibly secondary to diuresis 10 Moderate to severe pulmonary hypertension 11 Morbid obesity with a BMI of 42. 12 UTI suspected with enterococcus group D Plan: Hold diuretics Monitor renal function Wean down FiO2 to maintain a saturation above 90% Repeat chest x-ray today was noted and shows some improvement in the volume status Awaiting final sensitivities on enterococcus group D, currently on Levaquin We'll continue to follow
[2021-12-19 17:06] LABS: Glucose,Whole Blood 215 mg/dL (75-99)
[2021-12-19 20:15] LABS: Glucose,Whole Blood 164 mg/dL (75-99)
[2021-12-19] MEDS: PRAVASTATIN SODIUM 40 MG TAB PO SCH (21:07)
[2021-12-19] MEDS: SERTRALINE 100 MG TAB PO SCH (21:07)
[2021-12-19] MEDS: MONTELUKAST 10 MG TAB PO SCH (21:07)
[2021-12-19] MEDS ORDERED: traMADol 50 MG TAB PO STA (23:47)
[2021-12-20 06:12] LABS: Glucose,Whole Blood 113 mg/dL (75-99)
[2021-12-20] MEDS: INSULIN ASPART (NovoLOG) 100 UNIT/ML VIAL SQ SCH ×4 (06:27→22:30)
[2021-12-20] MEDS: LEVOTHYROXINE 88 MCG TAB PO SCH (06:41)
[2021-12-20] MEDS: hydrALAZINE HCL 50 MG TAB PO SCH ×3 (06:41→22:18)
[2021-12-20 07:08] LABS: Basophils % (A) 0 %; Eosinophils % (A) 1 %; HCT 29.7 % (34.0-46.0); HGB 8.6 gm/dL (11.4-16.0); Hypochromasia Marked; Lymphocytes # (A) 0.5 k/uL (1.0-4.8); Lymphocytes % (A) 8 %; MCH 23.8 pg (25.0-35.0); Mean Platelet Volume 7.3; Monocytes # (A) 0.3 k/uL (0-1.0); Monocytes % (A) 5 %; Neutrophils % (A) 85 %; Platelet Count 127 k/uL (150-450); RBC 3.62 m/uL (3.80-5.40); RDW 15.7 % (11.5-15.5); WBC 5.9 k/uL (3.8-10.6)
[2021-12-20 07:31] LABS: Albumin 3.3 g/dL (3.5-5.0); Calcium 8.4 mg/dL (8.4-10.2); Magnesium 1.9 mg/dL (1.6-2.3); Potassium 4.4 mmol/L (3.5-5.1); Total Bilirubin 0.6 mg/dL (0.2-1.3); Total Protein 5.6 g/dL (6.3-8.2)
--- NOTE | 2021-12-20 07:33 | XR ---
EXAMINATION TYPE: XR chest 1V DATE OF EXAM: 12/20/2021 COMPARISON: 12/19/2021 HISTORY: 71 year-old female shortness of breath TECHNIQUE: Single frontal view of the chest is obtained. FINDINGS: Left heart margin partially obscured by adjacent pleural parenchymal opacity, likely borderline enlar ged. Mild hyperinflation. Diffuse interstitial changes persist. Continued [id number] left pleu ral effusion with prominent left basilar opacity. IMPRESSION: 1. Correlate for ongoing CHF with mild interstitial pulmonary edema superimposed on COPD. 2. Continued small to moderate left pleural effusion with adjacent atelectasis and/or consolidation.
[2021-12-20] MEDS: FERROUS SULFATE 325 MG TAB PO SCH (08:36)
[2021-12-20] MEDS: busPIRone HCl 5 MG TAB PO SCH ×2 (08:36→22:18)
[2021-12-20] MEDS: amLODIPine 10 MG TAB PO SCH (08:36)
[2021-12-20] MEDS: METOPROLOL TARTRATE 50 MG TAB PO SCH (08:36)
[2021-12-20] MEDS: THYROID, PORK 30 MG TAB PO SCH (08:36)
[2021-12-20] MEDS: HEPARIN SODIUM,PORCINE/PF 5,000 UNIT/0.5 ML SYRINGE SQ SCH ×2 (08:36→22:16)
[2021-12-20] MEDS ORDERED: LEVOFLOXACIN 250 MG TAB PO SCH (09:00)
[2021-12-20] MEDS: SYMBICORT 160-4.5 MCG INHALER INHALATION SCH ×2 (09:02→20:52)
[2021-12-20] MEDS: IPRATROPIUM-ALBUTEROL 3 ML NEB INHALATION SCH ×4 (09:02→20:52)
[2021-12-20] MEDS ORDERED: FUROSEMIDE 10 MG/ML 4 ML VIAL IV STA (09:22)
--- NOTE | 2021-12-20 09:25 | P.PN ---
Subjective Patient is seen in follow-up for acute kidney injury on chronic kidney disease. Renal function little better today. Patient resting in bed. On 8 L high flow cannula. Strict urine output not measured as she is incontinent. Blood pressure stable. Diuretics stopped yesterday per pulmonology. Oral intake is fair. Daughter present at bedside. Vital signs are stable. General: Quite lethargic. HEENT: Head exam is unremarkable. On nasal cannula. LUNGS: Date Breath sounds decreased. HEART: Rate and Rhythm are regular. ABDOMEN: Soft, obese. EXTREMITITES: Trace edema. Objective - Vital Signs Vital signs: Vital Signs Temp 98.4 F 12/20/21 08:33 Pulse 82 12/20/21 09:14 Resp 18 12/20/21 08:33 BP 145/64 12/20/21 08:33 Pulse Ox 92 L 12/20/21 08:33 Intake & Output 12/19/21 12/20/21 12/20/21 18:59 06:59 18:59 Intake Total 358 480 Output Total 0 Balance 358 480 Intake: Oral 358 480 Output: Stool 0 Other: # Voids 1 # Bowel Movements 2 1 - Labs CBC & Chem 7: 12/20/21 06:04 12/20/21 06:04 Labs: Abnormal Lab Results - Last 24 Hours (Table) 12/19/21 12/19/21 12/19/21 Range/Units 06:45 11:16 16:56 RBC (3.80-5.40) m/uL Hgb (11.4-16.0) gm/dL Hct (34.0-46.0) % MCH (25.0-35.0) pg MCHC (31.0-37.0) g/dL RDW (11.5-15.5) % Plt Count (150-450) k/uL Lymphocytes # (1.0-4.8) k/uL Sodium (137-145) mmol/L Chloride (98-107) mmol/L Carbon Dioxide (22-30) mmol/L BUN (7-17) mg/dL Creatinine (0.52-1.04) mg/dL Glucose (74-99) mg/dL POC Glucose (mg/dL) 137 H 215 H (75-99) mg/dL Iron 22 L (50-170) ug/dL % Saturation 6.98 L (12.00-45.00) Total Protein (6.3-8.2) g/dL Albumin (3.5-5.0) g/dL 12/19/21 12/20/21 12/20/21 Range/Units 20:13 06:04 06:04 RBC 3.62 L (3.80-5.40) m/uL Hgb 8.6 L (11.4-16.0) gm/dL Hct 29.7 L (34.0-46.0) % MCH 23.8 L (25.0-35.0) pg MCHC 29.0 L (31.0-37.0) g/dL RDW 15.7 H (11.5-15.5) % Plt Count 127 L (150-450) k/uL Lymphocytes # 0.5 L (1.0-4.8) k/uL Sodium 135 L (137-145) mmol/L Chloride 96 L (98-107) mmol/L Carbon Dioxide 34 H (22-30) mmol/L BUN 60 H (7-17) mg/dL Creatinine 2.25 H (0.52-1.04) mg/dL Glucose 111 H (74-99) mg/dL POC Glucose (mg/dL) 164 H (75-99) mg/dL Iron (50-170) ug/dL % Saturation (12.00-45.00) Total Protein 5.6 L (6.3-8.2) g/dL Albumin 3.3 L (3.5-5.0) g/dL 12/20/21 Range/Units 06:10 RBC (3.80-5.40) m/uL Hgb (11.4-16.0) gm/dL Hct (34.0-46.0) % MCH (25.0-35.0) pg MCHC (31.0-37.0) g/dL RDW (11.5-15.5) % Plt Count (150-450) k/uL Lymphocytes # (1.0-4.8) k/uL Sodium (137-145) mmol/L Chloride (98-107) mmol/L Carbon Dioxide (22-30) mmol/L BUN (7-17) mg/dL Creatinine (0.52-1.04) mg/dL Glucose (74-99) mg/dL POC Glucose (mg/dL) 113 H (75-99) mg/dL Iron (50-170) ug/dL % Saturation (12.00-45.00) Total Protein (6.3-8.2) g/dL Albumin (3.5-5.0) g/dL Microbiology - Last 24 Hours (Table) 12/18/21 04:15 Urine Culture - Preliminary Urine,Voided Group D Enterococcus Assessment and Plan Plan: Assessment: 1. Acute kidney injury secondary to ATN secondary to cardiorenal syndrome. Creatinine was 1.7 on admission and peaked at 2.53 yesterday - 2.25 today. No hydronephrosis noted on kidney ultrasound. 2. Chronic kidney disease stage IIIB with baseline creatinine in the range of 1.2-1.4 in August 2019. Etiology is diabetic kidney disease. 3. Acute on chronic diastolic CHF with moderate to severe pulmonary hyper tension. 4. Acute hypoxic respiratory failure. 5. Fluid overload. 6. Diabetes. 7. Anemia of chronic kidney disease. Iron deficiency noted. 8. Hypertension with chronic kidney disease. Stable. Plan: Lasix 40 mg IV once today as chest x-ray suggestive of volume overload. Cozaar stopped due to JEWEL. Wean FiO2. Add IV iron. Avoid nephrotoxins. Continue to monitor renal function and urine output. Strict is and os. Use external catheter.
[2021-12-20] MEDS: SODIUM FERRIC GLUCONAT-SUCROSE 125 MG in SODIUM CHLORIDE 0.9% 100 ML IVPB SCH (10:28)
[2021-12-20] MEDS ORDERED: predniSONE 20 MG TAB PO SCH (11:45)
[2021-12-20 11:50] LABS: Glucose,Whole Blood 205 mg/dL (75-99)
--- NOTE | 2021-12-20 14:36 | P.PN ---
Subjective HISTORY OF PRESENTING ILLNESS This is a pleasant 71-year-old female past medical history significant for COPD requiring supplemental home oxygen diabetes hypertension hypothyroidism and morbid obesity. She does not follow with a scientific research associate. We have been asked to see in consultation for acute congestive heart failure. Patient was brought into the ER by her daughter for increased shortness of breath. Patient had Covid in September 2021 and since that time she has been requiring increased supplemental oxygen. She reports she has moderate exertional dyspnea. Patient started on IV Lasix in the emergency department. Echocardiogram revealed normal ejection fraction 5560 percent, mild aortic stenosis, moderate to severe pulmonary hypertension Patient seen and examined at bedside, no acute distress. She continues to be short of breath. She continues to have diminished breathing sounds bilaterally on examination and bilateral lower exam it is nonpitting edema noted as well. She is currently maintained on IV Lasix 40 mg x1 given today per nephrology Labs, sodium 135, potassium 4.4, BUN 60, serum creatinine 2.2, magnesium 1.9 GENERAL: Well-appearing, well-nourished and in no acute distress. NECK: Supple without JVD or thyromegaly. LUNGS: Breath sounds diminished to auscultation bilaterally. Respiration equal and unlabored. No wheezes, rales or rhonchi. HEART: Regular rate and rhythm without murmurs, rubs or gallops. S1 and S2 heard. EXTREMITIES: Normal range of motion, bilateral lower extremity edema present No clubbing or cyanosis. Peripheral pulses intact. ASSESSMENT Heart failure exacerbation secondary to heart failure with preserved ejection fraction Acute on Chronic kidney disease Aortic stenosis COPD Type 2 diabetes Hypertension Hypothyroidism PLAN IV Lasix continued per nephrology Patient not on acei/arb due to JEWEL Continue amlodipine, hydralazine, beta fariba, statin Monitor intake/outputs, renal function and electrolytes Further recommendations based on clinical course Nurse Practitioner note has been reviewed, I agree with a documented findings and plan of care. Patient was seen and examined. Objective - Vital Signs Vital signs: Vital Signs Temp 98.4 F 12/20/21 08:33 Pulse 85 12/20/21 12:22 Resp 18 12/20/21 12:22 BP 161/71 12/20/21 12:22 Pulse Ox 92 L 12/20/21 12:22 Intake & Output 12/19/21 12/20/21 12/20/21 18:59 06:59 18:59 Intake Total 358 480 Output Total 0 275 Balance 358 480 -275 Intake: Oral 358 480 Output: Urine 275 Stool 0 0 Other: # Voids 1 # Bowel Movements 2 1 - Labs CBC & Chem 7: 12/20/21 06:04 12/20/21 06:04 Labs: Abnormal Lab Results - Last 24 Hours (Table) 12/19/21 12/19/21 12/19/21 Range/Units 06:45 16:56 20:13 RBC (3.80-5.40) m/uL Hgb (11.4-16.0) gm/dL Hct (34.0-46.0) % MCH (25.0-35.0) pg MCHC (31.0-37.0) g/dL RDW (11.5-15.5) % Plt Count (150-450) k/uL Lymphocytes # (1.0-4.8) k/uL Sodium (137-145) mmol/L Chloride (98-107) mmol/L Carbon Dioxide (22-30) mmol/L BUN (7-17) mg/dL Creatinine (0.52-1.04) mg/dL Glucose (74-99) mg/dL POC Glucose (mg/dL) 215 H 164 H (75-99) mg/dL Iron 22 L (50-170) ug/dL % Saturation 6.98 L (12.00-45.00) Total Protein (6.3-8.2) g/dL Albumin (3.5-5.0) g/dL 12/20/21 12/20/21 12/20/21 Range/Units 06:04 06:04 06:10 RBC 3.62 L (3.80-5.40) m/uL Hgb 8.6 L (11.4-16.0) gm/dL Hct 29.7 L (34.0-46.0) % MCH 23.8 L (25.0-35.0) pg MCHC 29.0 L (31.0-37.0) g/dL RDW 15.7 H (11.5-15.5) % Plt Count 127 L (150-450) k/uL Lymphocytes # 0.5 L (1.0-4.8) k/uL Sodium 135 L (137-145) mmol/L Chloride 96 L (98-107) mmol/L Carbon Dioxide 34 H (22-30) mmol/L BUN 60 H (7-17) mg/dL Creatinine 2.25 H (0.52-1.04) mg/dL Glucose 111 H (74-99) mg/dL POC Glucose (mg/dL) 113 H (75-99) mg/dL Iron (50-170) ug/dL % Saturation (12.00-45.00) Total Protein 5.6 L (6.3-8.2) g/dL Albumin 3.3 L (3.5-5.0) g/dL 12/20/21 Range/Units 11:49 RBC (3.80-5.40) m/uL Hgb (11.4-16.0) gm/dL Hct (34.0-46.0) % MCH (25.0-35.0) pg MCHC (31.0-37.0) g/dL RDW (11.5-15.5) % Plt Count (150-450) k/uL Lymphocytes # (1.0-4.8) k/uL Sodium (137-145) mmol/L Chloride (98-107) mmol/L Carbon Dioxide (22-30) mmol/L BUN (7-17) mg/dL Creatinine (0.52-1.04) mg/dL Glucose (74-99) mg/dL POC Glucose (mg/dL) 205 H (75-99) mg/dL Iron (50-170) ug/dL % Saturation (12.00-45.00) Total Protein (6.3-8.2) g/dL Albumin (3.5-5.0) g/dL Microbiology - Last 24 Hours (Table) 12/18/21 04:15 Urine Culture - Final Urine,Voided Enterococcus faecalis
--- NOTE | 2021-12-20 15:33 | P.PN ---
Subjective Progress Note Date: 12/20/21 71-year-old female, who presents to the emergency department, complaining of shortness of breath. The patient sees one of my partners in the office for her COPD, and her primary care physician is Dr. Sathish Banks. Apparently, according to the patient's daughter, the patient herself had coronavirus inf ection in September, and has been declining since that time. The patient apparently is been having progressive shortness of breath with any activity. She apparently denies any chest pain or chest discomfort. There is no cough, and there is no phlegm production. No fever or chills. The patient was seen in the emergency department, and admitted with a diagnosis of fluid overload/CHF. Currently, the patient's resting comfortably, in no acute distress. She does feel better today than when she came into the hospital. Currently, she is on 10 L high flow O2, with saturations at 95%. Respiratory rate is 20 and heart rate is 95. Current labs include a white count 4.8, hemoglobin 9.3, hematocrit 32.2, and platelet count 139,000. Sodium 138, potassium 4.5, chlorides 94, CO2 36, anion gap 8, BUN 41, and creatinine 1.68. N-terminal proBNP was 1700. Troponin was normal. Chest x-ray from December 16 shows cardiomegaly, with pulmonary vascular congestion and bilateral pleural effusions, consistent with CHF. Progress note dated 12/18/2021. She is a 71-year-old female well-known to our service. She has a history of shortness of breath, and has a history of CHF and COPD. The patient was admitted with a diagnosis of progressive shortness breath, without chest pain or chest discomfort, and without cough or phlegm production. In the emergency department, she was diagnosed with fluid ov erload/CHF. She is currently on 10 L high flow nasal O2. She is resting comfortably in bed. She is not demonstrating any respiratory distress, use of accessory muscles, or conversational dyspnea. Laboratory data today includes a urine which is yellow and cloudy, 2+ protein. Leukocyte esterase was large positive. WBCs were 70. There are few WBC clumps, and moderate bacteria. The patient is currently on Levaquin. On today's evaluation of 12/19/2021, the patient remains on 5 L O2 by nasal cannula. Noted the patient's baseline oxygen requirement is around 4 L O2 by nasal cannula. She is comfortable. No significant complaints. No chest pain. No altered mentation. Pulse ox on 5 L is around 93%. Note that during this current admission, the patient was being diuresis. The patient developed an acute kidney injury. Creatinine is up to 2.53 with a mean of 57 and the sodium level is at 135. Based on that, I made recommendations to discontinue the IV L asix for now. At the same time, the patient has a positive UTI. UA was abnormal and the patient had a enterococcus group D on her urine cultures. The patient remains on Levaquin to 250 mg every 48 hours. She is on Symbicort as maintenance and she is using DuoNeb nebulized units [id number]. Note that the patient had a recent cold deteriorated pneumonia from which she recovered. Repeat chest x-ray from today shows cardiomegaly and pulmonary asked her congestion and some increased interstitial markings bilaterally yet that improved compared to the previous chest x-ray.. 12/20/2021, the patient is being seen for a follow-up. I had the patient on 5 L O2. Overnight, the patient was placed on 10 L O2. Current pulse ox on 7-90% and I dropped her back down to 8 L. She has trace edema in lower oximetry is bilaterally. She was taken off the diuretics yesterday as the patient had an acute kidney injury creatinine was as high as 2.5. Creatinine is improving and creatinine is down to 2.2 on today's evaluation. Sodium is at 135 with a potassium level of 4.4. The patient has a hemoglobin of 8.6 with a white cell count of 5.9. The patient also recently Levaquin regarding enterococcus UTI. The patient was given a dose of Lasix by nephrology today. Otherwise, the rest of medications remain unchanged. She is using incentive spirometer. Overall, she is quite debilitated and weak. Repeat chest x-ray from today was consistent with CHF and ongoing interstitial edema superimposed on COPD. There was small left-sided pleural effusion/atelectasis is noted on previous chest x-ray. Objective - Vital Signs Vital signs: Vital Signs Temp 98.4 F 12/20/21 08:33 Pulse 85 12/20/21 12:22 Resp 18 12/20/21 12:22 BP 161/71 03/15/22 12:22 Pulse Ox 92 L 12/20/21 12:22 Intake & Output 12/19/21 12/20/21 12/20/21 18:59 06:59 18:59 Intake Total 358 480 Output Total 0 275 Balance 358 480 -275 Intake: Oral 358 480 Output: Urine 275 Stool 0 0 Other: # Voids 1 # Bowel Movements 2 1 - Exam No acute distress, oriented 3. Currently on 8 L high flow O2. No conversational dyspnea or use of accessory muscles. Saturations are 94%. HEENT examination is grossly unremarkable. Neck supple. Full range of motion. No adenopathy thyromegaly or neck vein distention. Cardiovascular examination reveals regular rhythm rate. S1-S2 normal. No S3 or S4. No discernible murmur noted. Heart sounds are distant. Heart rate 92 bpm. Lungs reveal scattered rhonchi. No wheezes. Bibasilar crackles are noted. Saturations are 94% on 8 L high flow nasal O2. Abdomen soft bowel sounds are heard. No masses or tenderness. Extremities are intact. No cyanosis or clubbing. Trace edema is noted. Skin is without rash or lesion. Neurologic examination is brief but nonfocal. - Labs CBC & Chem 7: 12/20/21 06:04 12/20/21 06:04 Labs: Abnormal Lab Results - Last 24 Hours (Table) 12/19/21 12/19/21 12/19/21 Range/Units 06:45 16:56 20:13 RBC (3.80-5.40) m/uL Hgb (11.4-16.0) gm/dL Hct (34.0-46.0) % MCH (25.0-35.0) pg MCHC (31.0-37.0) g/dL RDW (11.5-15.5) % Plt Count (150-450) k/uL Lymphocytes # (1.0-4.8) k/uL Sodium (137-145) mmol/L Chloride (98-107) mmol/L Carbon Dioxide (22-30) mmol/L BUN (7-17) mg/dL Creatinine (0.52-1.04) mg/dL Glucose (74-99) mg/dL POC Glucose (mg/dL) 215 H 164 H (75-99) mg/dL Iron 22 L (50-170) ug/dL % Saturation 6.98 L (12.00-45.00) Total Protein (6.3-8.2) g/dL Albumin (3.5-5.0) g/dL 12/20/21 12/20/21 12/20/21 Range/Units 06:04 06:04 06:10 RBC 3.62 L (3.80-5.40) m/uL Hgb 8.6 L (11.4-16.0) gm/dL Hct 29.7 L (34.0-46.0) % MCH 23.8 L (25.0-35.0) pg MCHC 29.0 L (31.0-37.0) g/dL RDW 15.7 H (11.5-15.5) % Plt Count 127 L (150-450) k/uL Lymphocytes # 0.5 L (1.0-4.8) k/uL Sodium 135 L (137-145) mmol/L Chloride 96 L (98-107) mmol/L Carbon Dioxide 34 H (22-30) mmol/L BUN 60 H (7-17) mg/dL Creatinine 2.25 H (0.52-1.04) mg/dL Glucose 111 H (74-99) mg/dL POC Glucose (mg/dL) 113 H (75-99) mg/dL Iron (50-170) ug/dL % Saturation (12.00-45.00) Total Protein 5.6 L (6.3-8.2) g/dL Albumin 3.3 L (3.5-5.0) g/dL 12/20/21 Range/Units 11:49 RBC (3.80-5.40) m/uL Hgb (11.4-16.0) gm/dL Hct (34.0-46.0) % MCH (25.0-35.0) pg MCHC (31.0-37.0) g/dL RDW (11.5-15.5) % Plt Count (150-450) k/uL Lymphocytes # (1.0-4.8) k/uL Sodium (137-145) mmol/L Chloride (98-107) mmol/L Carbon Dioxide (22-30) mmol/L BUN (7-17) mg/dL Creatinine (0.52-1.04) mg/dL Glucose (74-99) mg/dL POC Glucose (mg/dL) 205 H (75-99) mg/dL Iron (50-170) ug/dL % Saturation (12.00-45.00) Total Protein (6.3-8.2) g/dL Albumin (3.5-5.0) g/dL Microbiology - Last 24 Hours (Table) 12/18/21 04:15 Urine Culture - Final Urine,Voided Enterococcus faecalis Assessment and Plan Plan: 1 acute on chronic hypoxic respiratory failure. The patient had increased in oxygen requirements. Noted the patient had a recent COVID 19 pneumonia from which she recovered. She comes in with CHF and fluid overload and the most recent chest x-ray from today shows improvement in the interstitial markings bilaterally. There is some background abnormalities. The patient is down to 5 L O2 nasal cannula, her baseline is around 4 L. Shortness of breath, likely mostly related to underlying CHF/fluid overload. There also may be a component of COPD exacerbation. Meanwhile, the patient developed an acute kidney injury due to diuresis and the diuretics will be discontinued for now. 2 Recent history of coronavirus infection, September,. 3 Prior history of acute respiratory distress syndrome, requiring prolonged intubation and mechanical ventilation, and eventual tracheostomy tube insertion. 4 History of severe COPD, with an FEV1 percent is 41. 5 History of hypothyroidism. 6 History of diabetes mellitus. 7 History of hypertension. 8 Previous COVID , Sep 2021 9 CKD stage 3B, with a component of an acute kidney injury, possibly secondary to diuresis 10 Moderate to severe pulmonary hypertension 11 Morbid obesity with a BMI of 42. 12 UTI suspected with enterococcus group D Plan: The patient was given a dose of Lasix by nephrology. We'll dose of Lasix and daily basis based on her fluid balance and renal function. Monitor renal function, the creatinine is improved and currently is down to 2.2 Wean down FiO2 to maintain a saturation above 90%, currently on 8 L of oxygen by nasal cannula Repeat chest x-ray today was noted and shows some improvement in the volume status. The patient continues to have some left-sided pleural effusion and interstitial edema. Awaiting final sensitivities on enterococcus group D, currently on Levaquin Continue using incentive spirometer Keep his mobility as tolerated Based on oxygen requirements at 4 L We'll continue to follow
--- NOTE | 2021-12-20 15:55 | P.PN ---
Subjective Progress Note Date: 12/20/21 This is a 71-year-old female with past medical history of COPD, on home O2, diabetes mellitus type 2, hypertension admitted with shortness of breath, fluid overload, underlying CHF exacerbation and multiple other medical issues.Maintained on nebulized bronchodilators, Levaquin and Lasix IV push.Diuresing well on Lasix IV push, denies increased shortness of breath except positive exertional shortness of breath, denies cough. Decreasing edema. Worsening renal function, creatinine 2.53. Currently maintaining O2 sats in the high 80s to 2 mid 90s on 8 L high flow nasal cannula. Echo reported normal LV function, EF 55-60%, mild aortic stenosis, moderate to severe pulmonary hypertension. Afebrile. 12/20/2021 tired this morning, unable to sleep well last night secondary to chronic back pain, received tramadol. Mild confusion this morning. Incentive spirometer up to 500. Patient back up to 10 L high flow nasal cannula, maintaining O2 sats in the low 90s. Staff reports patient is a 3 person assist to and from bedside commode, desats with exertion down to 82%. Diuretics discontinued yesterday, renal function improving, creatinine down to 2.25. Chest x-ray reporting ongoing CHF and mild interstitial pulmonary edema superimposed on COPD, continue spot a moderate left pleural effusion with adjacent atelectasis and/or consolidation. Received a dose Lasix IV push. Afebrile, normal WBC. Objective - Vital Signs Vital signs: Vital Signs Temp 98.4 F 12/20/21 08:33 Pulse 85 12/20/21 12:22 Resp 18 12/20/21 12:22 BP 161/71 12/20/21 12:22 Pulse Ox 92 L 12/20/21 12:22 Intake & Output 12/19/21 12/20/21 12/20/21 18:59 06:59 18:59 Intake Total 358 480 Output Total 0 275 Balance 358 480 -275 Intake: Oral 358 480 Output: Urine 275 Stool 0 0 Other: # Voids 1 # Bowel Movements 2 1 - Exam Exam General: Alert and oriented 2, fatigued ,Sitting up in bed, NAD. Obese. Vitals reviewed Eyes: PERRL, EOMI, conjunctiva normal HENT: normocephalic, mucus membranes moist Neck: supple, no JVD Lungs: Diminished air entry, fine bibasilar crackles CV: Regular rate and rhythm, systolic murmur. Peripheral pulses 2+,decreased edema, left greater than right Abdomen: soft, nondistended, no organomegaly, +bs Skin: warm and dry, no rash. Neuro: Cranial nerves II through XII grossly intact. No focal deficits. - Labs CBC & Chem 7: 12/20/21 06:04 12/20/21 06:04 Labs: Abnormal Lab Results - Last 24 Hours (Table) 12/19/21 12/19/21 12/20/21 Range/Units 16:56 20:13 06:04 RBC (3.80-5.40) m/uL Hgb (11.4-16.0) gm/dL Hct (34.0-46.0) % MCH (25.0-35.0) pg MCHC (31.0-37.0) g/dL RDW (11.5-15.5) % Plt Count (150-450) k/uL Lymphocytes # (1.0-4.8) k/uL Sodium 135 L (137-145) mmol/L Chloride 96 L (98-107) mmol/L Carbon Dioxide 34 H (22-30) mmol/L BUN 60 H (7-17) mg/dL Creatinine 2.25 H (0.52-1.04) mg/dL Glucose 111 H (74-99) mg/dL POC Glucose (mg/dL) 215 H 164 H (75-99) mg/dL Total Protein 5.6 L (6.3-8.2) g/dL Albumin 3.3 L (3.5-5.0) g/dL 12/20/21 12/20/21 12/20/21 Range/Units 06:04 06:10 11:49 RBC 3.62 L (3.80-5.40) m/uL Hgb 8.6 L (11.4-16.0) gm/dL Hct 29.7 L (34.0-46.0) % MCH 23.8 L (25.0-35.0) pg MCHC 29.0 L (31.0-37.0) g/dL RDW 15.7 H (11.5-15.5) % Plt Count 127 L (150-450) k/uL Lymphocytes # 0.5 L (1.0-4.8) k/uL Sodium (137-145) mmol/L Chloride (98-107) mmol/L Carbon Dioxide (22-30) mmol/L BUN (7-17) mg/dL Creatinine (0.52-1.04) mg/dL Glucose (74-99) mg/dL POC Glucose (mg/dL) 113 H 205 H (75-99) mg/dL Total Protein (6.3-8.2) g/dL Albumin (3.5-5.0) g/dL Microbiology - Last 24 Hours (Table) 12/18/21 04:15 Urine Culture - Final Urine,Voided Enterococcus faecalis Assessment and Plan Assessment: Acute on chronic CHF exacerbation, diastolic dysfunction Moderate to severe pulmonary hypertension, RVSP 55.45 Acute UTI with enterococcus faecalis Recent covid infection infection 09/27 Acute on chronic hypoxic respiratory failure secondary to all the above COPD Acute on Chronic kidney disease, stage IIIB, secondary to ATN related to cardiorenal syndrome Anemia of chronic kidney disease, iron deficient Hypertension Aortic Stenosis,mild Hypothyroidism Diabetes mellitus type 2 Morbid obesity, BMI 42.3 plan: Continue on current medication regime ,monitoring and symptomatic treatme nt. Wean oxygen. Lasix IV push 1. Close monitoring of renal function with repeat labs ordered for a.m. aggressive pulmonary toileting, nebulized bronchodilators, Levaquin. Incentive spirometer reinforced. Antibiotics adjusted to daptomycin given patient's renal function, sensitivities and patie nt's ALLERGIES. The impression and plan of care has been dictated as directed. : I performed a history and examination of this patient, discussed the same with the dictator. I agree with the dictator's note ,documented as a scribe. Any additional findings or plans will be noted.
[2021-12-20 16:54] LABS: Glucose,Whole Blood 127 mg/dL (75-99)
[2021-12-20] MEDS: DAPTOmycin 500 MG in SODIUM CHLORIDE 0.9% 50 ML IVPB SCH (17:49)
[2021-12-20 20:17] LABS: Glucose,Whole Blood 175 mg/dL (75-99)
[2021-12-20 20:55] LABS: ABG Base Excess 11.8 mmol/L; ABG HCO3 37 mmol/L (21-25); ABG PCO2 60 mmHg (35-45); ABG PH 7.39 (7.35-7.45); ABG PO2 68 mmHg (83-108); ABG TCO2 39 mmol/L (19-24); Allen Test Performed? Yes
[2021-12-20] MEDS ORDERED: acetaZOLAMIDE 250 MG TAB PO ONE (21:45)
[2021-12-20] MEDS: MONTELUKAST 10 MG TAB PO SCH (22:17)
[2021-12-20] MEDS: SERTRALINE 100 MG TAB PO SCH (22:18)
[2021-12-20] MEDS: PRAVASTATIN SODIUM 40 MG TAB PO SCH (22:18)
[2021-12-20 22:29] LABS: Glucose,Whole Blood 167 mg/dL (75-99)
[2021-12-21 06:14] LABS: Glucose,Whole Blood 124 mg/dL (75-99)
[2021-12-21] MEDS: INSULIN ASPART (NovoLOG) 100 UNIT/ML VIAL SQ SCH ×4 (06:50→21:16)
[2021-12-21] MEDS: LEVOTHYROXINE 88 MCG TAB PO SCH (06:54)
[2021-12-21] MEDS: hydrALAZINE HCL 50 MG TAB PO SCH ×3 (06:54→21:16)
[2021-12-21] MEDS: IPRATROPIUM-ALBUTEROL 3 ML NEB INHALATION SCH ×4 (08:26→20:31)
[2021-12-21] MEDS: SYMBICORT 160-4.5 MCG INHALER INHALATION SCH ×2 (08:26→20:31)
[2021-12-21] MEDS: busPIRone HCl 5 MG TAB PO SCH ×2 (08:41→21:15)
[2021-12-21] MEDS: METOPROLOL TARTRATE 50 MG TAB PO SCH (08:41)
[2021-12-21] MEDS: HEPARIN SODIUM,PORCINE/PF 5,000 UNIT/0.5 ML SYRINGE SQ SCH ×2 (08:41→21:16)
[2021-12-21] MEDS: THYROID, PORK 30 MG TAB PO SCH (08:41)
[2021-12-21] MEDS: amLODIPine 10 MG TAB PO SCH (08:41)
[2021-12-21 09:01] LABS: Calcium 8.8 mg/dL (8.4-10.2); Magnesium 1.9 mg/dL (1.6-2.3); Potassium 4.2 mmol/L (3.5-5.1)
[2021-12-21] MEDS ORDERED: hydrALAZINE HCL 20 MG/ML 1 ML VIAL IVP PRN (09:03)
[2021-12-21] MEDS ORDERED: FUROSEMIDE 10 MG/ML 4 ML VIAL IV STA (09:04)
--- NOTE | 2021-12-21 09:04 | P.PN ---
Subjective Patient is seen in follow-up for acute kidney injury on chronic kidney disease. Renal function improving. Creatinine 1.99 today. French catheter placed for urinary retention. Urine output over 1 L overnight. Patient resting in bed. On 8 L high flow cannula. Oral intake is fair. Vital signs are stable. General: Awake but lethargic. HEENT: Head exam is unremarkable. On nasal cannula. LUNGS: Breath sounds decreased. HEART: Rate and Rhythm are regular. ABDOMEN: Soft, obese. EXTREMITITES: Trace edema. Objective - Vital Signs Vital signs: Vital Signs Temp 98.5 F 12/21/21 08:33 Pulse 76 12/21/21 08:46 Resp 16 12/21/21 08:33 BP 173/71 12/21/21 08:33 Pulse Ox 97 12/21/21 08:33 Intake & Output 12/20/21 12/21/21 12/21/21 18:59 06:59 18:59 Intake Total 180 Output Total 585 1180 Balance -405 -1180 Weight 107.5 kg Intake: Oral 180 Output: Urine 585 1180 Uretheral (French) 1180 Stool 0 Other: Voiding Method Indwelling Catheter # Voids 1 # Bowel Movements 1 - Labs CBC & Chem 7: 12/20/21 06:04 12/20/21 06:04 Labs: Abnormal Lab Results - Last 24 Hours (Table) 12/20/21 12/20/21 12/20/21 Range/Units 11:49 16:53 20:15 ABG pCO2 (35-45) mmHg ABG pO2 (83-108) mmHg ABG HCO3 (21-25) mmol/L ABG Total CO2 (19-24) mmol/L POC Glucose (mg/dL) 205 H 127 H 175 H (75-99) mg/dL 12/20/21 12/20/21 12/21/21 Range/Units 20:59 22:28 06:12 ABG pCO2 60 H (35-45) mmHg ABG pO2 68 L (83-108) mmHg ABG HCO3 37 H (21-25) mmol/L ABG Total CO2 39 H (19-24) mmol/L POC Glucose (mg/dL) 167 H 124 H (75-99) mg/dL Microbiology - Last 24 Hours (Table) 12/18/21 04:15 Urine Culture - Final Urine,Voided Enterococcus faecalis Assessment and Plan Plan: Assessment: 1. Acute kidney injury secondary to ATN secondary to cardiorenal syndrome. Creatinine was 1.7 on admission and peaked at 2.53 - 1.99 today. No hydronephrosis noted on kidney ultrasound. 2. Chronic kidney disease stage IIIB with baseline creatinine in the range of 1.2-1.4 in August 2019. Etiology is diabetic kidney disease. 3. Acute on chronic diastolic CHF with moderate to severe pulmonary hypertension. 4. Acute hypoxic respiratory failure. 5. Fluid overload. 6. Diabetes. 7. Anemia of chronic kidney disease. Iron deficiency noted. 8. Hypertension with chronic kidney disease. Stable. 9. Urinary retention. French catheter placed 12/20/2021. Plan: Repeat IV Lasix 40 mg once today. Cozaar stopped due to JEWEL. Wean FiO2. Maintain IV iron. Avoid nephrotoxins. Continue to monitor renal function and urine output. Add Flomax.
[2021-12-21] MEDS: SODIUM FERRIC GLUCONAT-SUCROSE 125 MG in SODIUM CHLORIDE 0.9% 100 ML IVPB SCH (09:35)
[2021-12-21] MEDS: TAMSULOSIN 0.4 MG CAP.ER.24H PO SCH (09:39)
[2021-12-21 11:43] LABS: Glucose,Whole Blood 163 mg/dL (75-99)
--- NOTE | 2021-12-21 12:35 | P.PN ---
Subjective Progress Note Date: 12/21/21 On 12/21/2021 patient seen in follow-up on selective care unit, she is resting in bed today, her daughter is at the bedside, and she states the patient is noted to be a bit more confused today, she is moaning and groaning but at the same time she denies any pain. She is awake, she is answering questions, she is oriented 3. She remains on 8 L of oxygen pulse ox is 97%, lung sounds are diminished, with minimal crackles at the bases, she is maintaining negative fluid balance and she is in -1.5 L in the last 24 hours, she received a dose of IV Lasix yesterday and today per nephrology. She is being treated for a urinary tract infection related to enterococcus faecalis, and patient was initially on Levaquin and subsequently sensitivity revealed resistance to Levaquin. Patient is currently on daptomycin per primary care service. She's been afebrile overnight. Hemodynamically she has been stable. Overall fluid volume status is improving, and her last chest x-ray was showing improved appearance of interstitial edema. Today's labs have been reviewed, sodium is 137, potassium is 4.2, chloride is 95, CO2 is 36, BUN is 49, creatinine is 1.99, showing an improvement in the renal function trend. CBC is still pending right now. Objective - Vital Signs Vital signs: Vital Signs Temp 98.5 F 12/21/21 08:33 Pulse 72 12/21/21 12:17 Resp 17 12/21/21 12:00 BP 154/68 12/21/21 12:00 Pulse Ox 98 12/21/21 12:00 Intake & Output 12/20/21 12/21/21 12/21/21 18:59 06:59 18:59 Intake Total 180 Output Total 585 1180 700 Balance -405 -1180 -700 Weight 107.5 kg Intake: Oral 180 Output: Urine 585 1180 700 Uretheral (French) 1180 Stool 0 0 Other: Voiding Method Indwelling Catheter Indwelling Catheter # Voids 1 # Bowel Movements 1 - Exam GENERAL EXAM: Somnolent, but easily arousable, 71-year-old white female, resting in bed, currently on 8 L of oxygen pulse ox is 97% does not appear to be in any acute distress comfortable in no apparent distress. HEAD: Normocephalic/atraumatic. EYES: Normal reaction of pupils, equal size. Conjunctiva pink, sclera white. NOSE: Clear with pink turbinates. THROAT: No erythema or exudates. NECK: No masses, no JVD, no thyroid enlargement, no adenopathy. CHEST: No chest wall deformity. Symmetrical expansion. LUNGS: Diminished air entry with no crackles, wheeze, rhonchi or dullness. CVS: Regular rate and rhythm, normal S1 and S2, no gallops, no murmurs, no rubs ABDOMEN: Soft, nontender. No hepatosplenomegaly, normal bowel sounds, no guarding or rigidity. EXTREMITIES: No clubbing, no edema, no cyanosis, 2+ pulses and upper and lower extremities. MUSCULOSKELETAL: Muscle strength and tone normal. SPINE: No scoliosis or deformity SKIN: No rashes CENTRAL NERVOUS SYSTEM: Alert and oriented -3. No focal deficits, tone is normal in all 4 extremities. PSYCHIATRIC: Alert and oriented -3. Appropriate affect. Intact judgment and insight. - Labs CBC & Chem 7: 12/20/21 06:04 12/21/21 08:09 Labs: Abnormal Lab Results - Last 24 Hours (Table) 12/20/21 12/20/21 12/20/21 Range/Units 16:53 20:15 20:59 ABG pCO2 60 H (35-45) mmHg ABG pO2 68 L (83-108) mmHg ABG HCO3 37 H (21-25) mmol/L ABG Total CO2 39 H (19-24) mmol/L Chloride (98-107) mmol/L Carbon Dioxide (22-30) mmol/L BUN (7-17) mg/dL Creatinine (0.52-1.04) mg/dL Glucose (74-99) mg/dL POC Glucose (mg/dL) 127 H 175 H (75-99) mg/dL 12/20/21 12/21/21 12/21/21 Range/Units 22:28 06:12 08:09 ABG pCO2 (35-45) mmHg ABG pO2 (83-108) mmHg ABG HCO3 (21-25) mmol/L ABG Total CO2 (19-24) mmol/L Chloride 95 L (98-107) mmol/L Carbon Dioxide 36 H (22-30) mmol/L BUN 49 H (7-17) mg/dL Creatinine 1.99 H (0.52-1.04) mg/dL Glucose 158 H (74-99) mg/dL POC Glucose (mg/dL) 167 H 124 H (75-99) mg/dL 12/21/21 Range/Units 11:41 ABG pCO2 (35-45) mmHg ABG pO2 (83-108) mmHg ABG HCO3 (21-25) mmol/L ABG Total CO2 (19-24) mmol/L Chloride (98-107) mmol/L Carbon Dioxide (22-30) mmol/L BUN (7-17) mg/dL Creatinine (0.52-1.04) mg/dL Glucose (74-99) mg/dL POC Glucose (mg/dL) 163 H (75-99) mg/dL Microbiology - Last 24 Hours (Table) 12/18/21 04:15 Urine Culture - Final Urine,Voided Enterococcus faecalis Assessment and Plan Plan: Assessment: #1. Acute on chronic hypoxic respiratory failure, related to acute exacerbation of CHF with diastolic dysfunction #2. 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 Prior history of acute respiratory distress syndrome requiring prolonged intubation and mechanical ventilation and eventual tracheostomy tube insertion with subsequent decannulation #4. History of severe COPD, the baseline FEV1 of 41% of predicted #5. History of hypothyroidism #6. History of diabetes mellitus type 2 #7. History of hypertension #8. Previous COVID-19 infection in September 2021 #9. Chronic kidney disease stage IIIB with a component of an acute kidney injury possibly secondary to diuretics, improving #10. Moderately severe pulmonary hypertension #11. Morbid obesity with BMI of 42 kg/m #12. Acute urinary tract infection related to enterococcus faecalis, currently on daptomycin, initially treated with Levaquin Plan: Continue weaning FiO2 to keep O2 sats above 90-92% This morning patient apparently experienced increased shortness of breath, she was given a dose of IV Lasix Currently breathing comfortably Follow-up chest x-ray tomorrow May need BiPAP support if needed for increased shortness of breath with press ures of 12 and 6 and FiO2 to keep O2 sats at or above 90-92% Follow-up EMG, to monitor electrolytes and renal profile Increase activity as tolerated Continue to follow I have personally seen and examined the patient, performed the documentation and the assessment and plan as written. Number of minutes spent on the visit: [10] Time with Patient: Less than 30 (I have personally seen and examined the patient and reviewed the documentation. I performed a joint evaluation with the nurse practitioner in this evaluation was done more than 20 minutes. I fully agree with the documentation above and the plan of care.)
--- NOTE | 2021-12-21 13:56 | P.PN ---
Subjective HISTORY OF PRESENTING ILLNESS This is a pleasant 71-year-old female past medical history significant for COPD requiring supplemental home oxygen diabetes hypertension hypothyroidism and morbid obesity. 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 We have been asked to see in consultation for acute congestive heart failure. Patient was brought into the ER by her daughter for increased shortness of breath. Patient had Covid in September 2021 and since that time she has been requiring increased supplemental oxygen. She reports she has moderate exertional dyspnea. Patient started on IV Lasix in the emergency department. Echocardiogram revealed normal ejection fraction 5560 percent, mild aortic stenosis, moderate to severe pulmonary hypertension Patient seen and examined at bedside, no acute distress. She continues to be short of breath. She continues to have diminished breathing sounds bilaterally on examination. Edema improved. She is currently maintained on IV Lasix 40 mg x1 given today per nephrology. Patient with 1765 mL urine output over the past 24 hours. Improvement in renal function. Labs, sodium 137, potassium 4.2, BUN 49, serum creatinine 1.9, magnesium 1.9 GENERAL: Well-appearing, well-nourished and in no acute distress. NECK: Supple without JVD or thyromegaly. LUNGS: Breath sounds diminished to auscultation bilaterally. Respiration equal and unlabored. No wheezes, rales or rhonchi. HEART: Regular rate and rhythm without murmurs, rubs or gallops. S1 and S2 heard. EXTREMITIES: Normal range of motion, No edema. No clubbing or cyanosis. Peripheral pulses intact. ASSESSMENT Heart failure exacerbation secondary to heart failure with preserved ejection fraction Acute on Chronic kidney disease Aortic stenosis COPD Type 2 diabetes Hypertension Hypothyroidism PLAN IV Lasix continued per nephrology Patient not on acei/arb due to JEWEL Monitor BP, would ideally want BP better controlled, however at this time will continue current medical therapy due to renal function Continue amlodipine, hydralazine, beta fariba, statin Monitor intake/outputs, renal function and electrolytes Further recommendations based on clinical course Nurse Practitioner note has been reviewed, I agree with a documented findings and plan of care. Patient was seen and examined. Objective - Vital Signs Vital signs: Vital Signs Temp 98.5 F 12/21/21 08:33 Pulse 70 12/21/21 12:27 Resp 17 12/21/21 12:00 BP 154/68 12/21/21 12:00 Pulse Ox 98 12/21/21 12:00 Intake & Output 12/20/21 12/21/21 12/21/21 18:59 06:59 18:59 Intake Total 180 Output Total 585 1180 1500 Balance -405 -1180 -1500 Weight 107.5 kg Intake: Oral 180 Output: Urine 585 1180 1500 Uretheral (French) 1180 Stool 0 0 Other: Voiding Method Indwelling Catheter Indwelling Catheter # Voids 1 # Bowel Movements 1 - Labs CBC & Chem 7: 12/20/21 06:04 12/21/21 08:09 Labs: Abnormal Lab Results - Last 24 Hours (Table) 12/20/21 12/20/21 12/20/21 Range/Units 16:53 20:15 20:59 ABG pCO2 60 H (35-45) mmHg ABG pO2 68 L (83-108) mmHg ABG HCO3 37 H (21-25) mmol/L ABG Total CO2 39 H (19-24) mmol/L Chloride (98-107) mmol/L Carbon Dioxide (22-30) mmol/L BUN (7-17) mg/dL Creatinine (0.52-1.04) mg/dL Glucose (74-99) mg/dL POC Glucose (mg/dL) 127 H 175 H (75-99) mg/dL 12/20/21 12/21/21 12/21/21 Range/Units 22:28 06:12 08:09 ABG pCO2 (35-45) mmHg ABG pO2 (83-108) mmHg ABG HCO3 (21-25) mmol/L ABG Total CO2 (19-24) mmol/L Chloride 95 L (98-107) mmol/L Carbon Dioxide 36 H (22-30) mmol/L BUN 49 H (7-17) mg/dL Creatinine 1.99 H (0.52-1.04) mg/dL Glucose 158 H (74-99) mg/dL POC Glucose (mg/dL) 167 H 124 H (75-99) mg/dL 12/21/21 Range/Units 11:41 ABG pCO2 (35-45) mmHg ABG pO2 (83-108) mmHg ABG HCO3 (21-25) mmol/L ABG Total CO2 (19-24) mmol/L Chloride (98-107) mmol/L Carbon Dioxide (22-30) mmol/L BUN (7-17) mg/dL Creatinine (0.52-1.04) mg/dL Glucose (74-99) mg/dL POC Glucose (mg/dL) 163 H (75-99) mg/dL Microbiology - Last 24 Hours (Table) 12/18/21 04:15 Urine Culture - Final Urine,Voided Enterococcus faecalis
--- NOTE | 2021-12-21 15:07 | P.PN ---
Subjective Progress Note Date: 12/21/21 This is a 71-year-old female with past medical history of COPD, on home O2, diabetes mellitus type 2, hypertension admitted with shortness of breath, fluid overload, underlying CHF exacerbation and multiple other medical issues.Maintained on nebulized bronchodilators, Levaquin and Lasix IV push.Diuresing well on Lasix IV push, denies increased shortness of breath except positive exertional shortness of breath, denies cough. Decreasing edema. Worsening renal function, creatinine 2.53. Currently maintaining O2 sats in the high 80s to 2 mid 90s on 8 L high flow nasal cannula. Echo reported normal LV function, EF 55-60%, mild aortic stenosis, moderate to severe pulmonary hypertension. Afebrile. 12/20/2021 tired this morning, unable to sleep well last night secondary to chronic back pain, received tramadol. Mild confusion this morning. Incentive spirometer up to 500. Patient back up to 10 L high flow nasal cannula, maintaining O2 sats in the low 90s. Staff reports patient is a 3 person assist to and from bedside commode, desats with exertion down to 82%. Diuretics discontinued yesterday, renal function improving, creatinine down to 2.25. Chest x-ray reporting ongoing CHF and mild interstitial pulmonary edema superimposed on COPD, continue spot a moderate left pleural effusion with adjacent atelectasis and/or consolidation. Received a dose Lasix IV push. Afebrile, normal WBC. 12/21/2021 last night family believed patient to be more lethargic, ABGs drawn, CO2 60, received a dose of Diamox, CO2 this morning decreased to 36. Continues on 8 L high flow nasal cannula maintaining O2 sats of 97 and 98%. Yesterday antibiotics adjusted to daptomycin as urine culture reported enterococcus faecalis, resistant to quinolones, in a patient with penicillin ALLERGIES, with a elevated creatinine.afebrile renal function improving, BUN 49, creatinine 1.99. Required French catheter for urinary retention .Flomax added to med.regimen.yesterday he received a dose of Lasix IV push, 24-hour I&O reflecting a negative fluid balance .Continues on IV iron. Objective - Vital Signs Vital signs: Vital Signs Temp 98.5 F 12/21/21 08:33 Pulse 70 12/21/21 12:27 Resp 17 12/21/21 12:00 BP 154/68 12/21/21 12:00 Pulse Ox 98 12/21/21 12:00 Intake & Output 12/20/21 12/21/21 12/21/21 18:59 06:59 18:59 Intake Total 180 Output Total 585 1180 1500 Balance -405 -1180 -1500 Weight 107.5 kg Intake: Oral 180 Output: Urine 585 1180 1500 Uretheral (French) 1180 Stool 0 0 Other: Voiding Method Indwelling Catheter Indwelling Catheter # Voids 1 # Bowel Movements 1 - Exam Exam General: Alert and oriented 2, sleepy ,Sitting up in bed, NAD. Obese. Vitals reviewed Eyes: PERRL, EOMI, conjunctiva normal HENT: normocephalic, mucus membranes moist Neck: supple, no JVD Lungs: Diminished air entry, fine bibasilar crackles CV: Regular rate and rhythm, systolic murmur. Peripheral pulses 2+,decreased edema, left greater than right Abdomen: soft, nondistended, no organomegaly, +bs Skin: warm and dry, no rash. Neuro: Cranial nerves II through XII grossly intact. No focal deficits. - Labs CBC & Chem 7: 12/20/21 06:04 12/21/21 08:09 Labs: Abnormal Lab Results - Last 24 Hours (Table) 12/20/21 12/20/21 12/20/21 Range/Units 16:53 20:15 20:59 ABG pCO2 60 H (35-45) mmHg ABG pO2 68 L (83-108) mmHg ABG HCO3 37 H (21-25) mmol/L ABG Total CO2 39 H (19-24) mmol/L Chloride (98-107) mmol/L Carbon Dioxide (22-30) mmol/L BUN (7-17) mg/dL Creatinine (0.52-1.04) mg/dL Glucose (74-99) mg/dL POC Glucose (mg/dL) 127 H 175 H (75-99) mg/dL 12/20/21 12/21/21 12/21/21 Range/Units 22:28 06:12 08:09 ABG pCO2 (35-45) mmHg ABG pO2 (83-108) mmHg ABG HCO3 (21-25) mmol/L ABG Total CO2 (19-24) mmol/L Chloride 95 L (98-107) mmol/L Carbon Dioxide 36 H (22-30) mmol/L BUN 49 H (7-17) mg/dL Creatinine 1.99 H (0.52-1.04) mg/dL Glucose 158 H (74-99) mg/dL POC Glucose (mg/dL) 167 H 124 H (75-99) mg/dL 12/21/21 Range/Units 11:41 ABG pCO2 (35-45) mmHg ABG pO2 (83-108) mmHg ABG HCO3 (21-25) mmol/L ABG Total CO2 (19-24) mmol/L Chloride (98-107) mmol/L Carbon Dioxide (22-30) mmol/L BUN (7-17) mg/dL Creatinine (0.52-1.04) mg/dL Glucose (74-99) mg/dL POC Glucose (mg/dL) 163 H (75-99) mg/dL Microbiology - Last 24 Hours (Table) 12/18/21 04:15 Urine Culture - Final Urine,Voided Enterococcus faecalis Assessment and Plan Assessment: Acute on chronic CHF exacerbation, diastolic dysfunction Moderate to severe pulmonary hypertension, RVSP 55.45 Acute UTI with enterococcus faecalis Recent covid infection infection 09/27 Acute on chronic hypoxic respiratory failure secondary to all the above COPD Acute on Chronic kidney disease, stage IIIB, secondary to ATN related to cardiorenal syndrome Anemia of chronic kidney disease, iron deficient Urinary retention Hypertension Aortic Stenosis,mild Hypothyroidism Diabetes mellitus type 2 Morbid obesity, BMI 42.3 plan: Continue on current medication regime ,monitoring and symptomatic treatme nt. Continue weaning of oxygen. Received a dose of Diamox last night,hypercapnic, possible BiPAP as per pulmonary. IV iron, Lasix IV push 1 as per nephrology Close monitoring of renal function with repeat labs ordered for a.m. maintain aggressive pulmonary toileting, nebulized bronchodilators, Dapt omycin. The impression and plan of care has been dictated as directed. : I performed a history and examination of this patient, discussed the same with the dictator. I agree with the dictator's note ,documented as a scribe. Any additional findings or plans will be noted.
[2021-12-21 16:42] LABS: Glucose,Whole Blood 221 mg/dL (75-99)
[2021-12-21 19:56] LABS: Glucose,Whole Blood 156 mg/dL (75-99)
[2021-12-21] MEDS: PRAVASTATIN SODIUM 40 MG TAB PO SCH (21:15)
[2021-12-21] MEDS: MONTELUKAST 10 MG TAB PO SCH (21:15)
[2021-12-21] MEDS: SERTRALINE 100 MG TAB PO SCH (21:16)
[2021-12-22 05:45] LABS: Glucose,Whole Blood 103 mg/dL (75-99)
[2021-12-22] MEDS: INSULIN ASPART (NovoLOG) 100 UNIT/ML VIAL SQ SCH ×4 (06:17→20:16)
[2021-12-22] MEDS: LEVOTHYROXINE 88 MCG TAB PO SCH (06:36)
[2021-12-22] MEDS: hydrALAZINE HCL 50 MG TAB PO SCH ×3 (06:37→20:16)
--- NOTE | 2021-12-22 07:15 | XR ---
EXAMINATION TYPE: XR chest 1V portable DATE OF EXAM: 12/22/2021 HISTORY: Shortness of breath. COMPARISON: 12/20/2021 TECHNIQUE: Single view of the chest is submitted. FINDINGS: Demonstrated are scattered senescent parenchymal change. Persistent reticulonodular densities throughout both lung doran with increasing right lower lobe den sity which may reflect focal consolidation, atelectasis and/or developing effusion. Persistent effusi on noted at the left lung base. The heart is stable. Hilar and mediastinal structures are within normal limits. Degenerative changes are seen of the dorsal spine. IMPRESSION: 1. Persistent reticulonodular densities throughout both lung doran with increasing right lower lobe density which may reflect focal consolidation, atelectasis and/or developing effusion. Persistent ef fusion noted at the left lung base.
[2021-12-22 07:29] LABS: Basophils % (A) 0 %; Eosinophils # (A) 0.1 k/uL (0-0.7); Eosinophils % (A) 1 %; HCT 29.2 % (34.0-46.0); HGB 8.6 gm/dL (11.4-16.0); Hypochromasia Marked; Lymphocytes # (A) 0.4 k/uL (1.0-4.8); Lymphocytes % (A) 8 %; MCH 24.4 pg (25.0-35.0); MCHC 29.5 g/dL (31.0-37.0); MCV 82.9 fL (80.0-100.0); Mean Platelet Volume 8.6; Monocytes # (A) 0.3 k/uL (0-1.0); Monocytes % (A) 6 %; Neutrophils # (A) 4.4 k/uL (1.3-7.7); Neutrophils % (A) 84 %; Platelet Count 114 k/uL (150-450); RBC 3.52 m/uL (3.80-5.40); RDW 15.5 % (11.5-15.5); WBC 5.3 k/uL (3.8-10.6)
[2021-12-22 07:59] LABS: Calcium 8.8 mg/dL (8.4-10.2); Magnesium 1.9 mg/dL (1.6-2.3); Potassium 3.8 mmol/L (3.5-5.1)
[2021-12-22] MEDS: SYMBICORT 160-4.5 MCG INHALER INHALATION SCH ×2 (08:24→19:24)
[2021-12-22] MEDS: IPRATROPIUM-ALBUTEROL 3 ML NEB INHALATION SCH ×4 (08:24→19:24)
--- NOTE | 2021-12-22 09:06 | P.PN ---
Subjective Patient is seen in follow-up for acute kidney injury on chronic kidney disease. Renal function improving. Creatinine 1.79 today. French catheter placed for urinary retention. Urine output over 2 L in the last 24 hours. Patient resting in bed. On 8 L high flow cannula. Oral intake is fair. Feels better today. More awake and alert. Vital signs are stable. General: Awake and alert today. HEENT: Head exam is unremarkable. On nasal cannula. LUNGS: Breath sounds decreased. HEART: Rate and Rhythm are regular. ABDOMEN: Soft, obese. EXTREMITITES: Trace edema. Objective - Vital Signs Vital signs: Vital Signs Temp 98.0 F 12/22/21 04:00 Pulse 72 12/22/21 08:35 Resp 18 12/22/21 04:00 BP 147/76 12/22/21 06:39 Pulse Ox 93 L 12/22/21 04:00 Intake & Output 12/21/21 12/22/21 12/22/21 18:59 06:59 18:59 Output Total 1800 550 Balance -1800 -550 Weight 100.5 kg Output: Urine 1800 550 Stool 0 Other: Voiding Method Indwelling Catheter Indwelling Catheter # Bowel Movements 1 - Labs CBC & Chem 7: 12/22/21 06:51 12/22/21 06:51 Labs: Abnormal Lab Results - Last 24 Hours (Table) 12/21/21 12/21/21 12/21/21 Range/Units 11:41 16:39 19:54 RBC (3.80-5.40) m/uL Hgb (11.4-16.0) gm/dL Hct (34.0-46.0) % MCH (25.0-35.0) pg MCHC (31.0-37.0) g/dL Plt Count (150-450) k/uL Lymphocytes # (1.0-4.8) k/uL Sodium (137-145) mmol/L Chloride (98-107) mmol/L Carbon Dioxide (22-30) mmol/L BUN (7-17) mg/dL Creatinine (0.52-1.04) mg/dL Glucose (74-99) mg/dL POC Glucose (mg/dL) 163 H 221 H 156 H (75-99) mg/dL 12/22/21 12/22/21 12/22/21 Range/Units 05:44 06:51 06:51 RBC 3.52 L (3.80-5.40) m/uL Hgb 8.6 L (11.4-16.0) gm/dL Hct 29.2 L (34.0-46.0) % MCH 24.4 L (25.0-35.0) pg MCHC 29.5 L (31.0-37.0) g/dL Plt Count 114 L (150-450) k/uL Lymphocytes # 0.4 L (1.0-4.8) k/uL Sodium 136 L (137-145) mmol/L Chloride 95 L (98-107) mmol/L Carbon Dioxide 37 H (22-30) mmol/L BUN 46 H (7-17) mg/dL Creatinine 1.79 H (0.52-1.04) mg/dL Glucose 137 H (74-99) mg/dL POC Glucose (mg/dL) 103 H (75-99) mg/dL Assessment and Plan Plan: Assessment: 1. Acute kidney injury secondary to ATN secondary to cardiorenal syndrome. Creatinine was 1.7 on admission and peaked at 2.53 - 1.99 today. No hydronephrosis noted on kidney ultrasound. 2. Chronic kidney disease stage IIIB with baseline creatinine in the range of 1.2-1.4 in August 2019. Etiology is diabetic kidney disease. 3. Acute on chronic diastolic CHF with moderate to severe pulmonary hypertension. 4. Acute hypoxic respiratory failure. 5. Fluid overload. Improving with diuresis. 6. Diabetes. 7. Anemia of chronic kidney disease. Iron deficiency noted. 8. Hypertension with chronic kidney disease. Stable. 9. Urinary retention. French catheter placed 12/20/2021. On Flomax. Plan: Continue with Lasix 40 mg IV daily. Cozaar stopped due to JEWEL. Wean FiO2. Maintain IV iron. Avoid nephrotoxins. Continue to monitor renal function and urine output.
[2021-12-22] MEDS: FUROSEMIDE 10 MG/ML 4 ML VIAL IV SCH (09:34)
[2021-12-22] MEDS: HEPARIN SODIUM,PORCINE/PF 5,000 UNIT/0.5 ML SYRINGE SQ SCH ×2 (09:34→20:16)
[2021-12-22] MEDS: busPIRone HCl 5 MG TAB PO SCH ×2 (09:35→20:15)
[2021-12-22] MEDS: METOPROLOL TARTRATE 50 MG TAB PO SCH (09:35)
[2021-12-22] MEDS: amLODIPine 10 MG TAB PO SCH (09:35)
[2021-12-22] MEDS: THYROID, PORK 30 MG TAB PO SCH (09:35)
[2021-12-22] MEDS: TAMSULOSIN 0.4 MG CAP.ER.24H PO SCH (09:35)
[2021-12-22] MEDS: SODIUM FERRIC GLUCONAT-SUCROSE 125 MG in SODIUM CHLORIDE 0.9% 100 ML IVPB SCH (11:37)
[2021-12-22 11:45] LABS: Glucose,Whole Blood 203 mg/dL (75-99)
[2021-12-22 11:56] VITALS: BMI 40.5
--- NOTE | 2021-12-22 13:10 | P.PN ---
Subjective Progress Note Date: 12/22/21 On 12/21/2021 patient seen in follow-up on selective care unit, she is resting in bed today, her daughter is at the bedside, and she states the patient is noted to be a bit more confused today, she is moaning and groaning but at the same time she denies any pain. She is awake, she is answering questions, she is oriented 3. She remains on 8 L of oxygen pulse ox is 97%, lung sounds are diminished, with minimal crackles at the bases, she is maintaining negative fluid balance and she is in -1.5 L in the last 24 hours, she received a dose of IV Lasix yesterday and today per nephrology. She is being treated for a urinary tract infection related to enterococcus faecalis, and patient was initially on Levaquin and subsequently sensitivity revealed resistance to Levaquin. Patient is currently on daptomycin per primary care service. She's been afebrile overnight. Hemodynamically she has been stable. Overall fluid volume status is improving, and her last chest x-ray was showing improved appearance of interstitial edema. Today's labs have been reviewed, sodium is 137, potassium is 4.2, chloride is 95, CO2 is 36, BUN is 49, creatinine is 1.99, showing an improvement in the renal function trend. CBC is still pending right now. On 12/22/2021 patient is seen in follow-up on selective care unit. Patient is awake and alert, oriented 3, she is currently on 8 L of oxygen pulse ox is 88- 89%. Clinically she feels short of breath today, although appears to be in no acute distress. We discussed possibility of BiPAP intermittently for increased shortness of breath and hypoxia, and patient would like to try it at this time. She was placed on BiPAP with pressures of 12 and 6 and FiO2 100%, she is getting good tidal volumes of around 700, minute ventilation is 15 L/m. Her O2 saturations on those above-mentioned settings were 99%, she is tolerating BiPAP support quite well. Seems to be rather comfortable. FiO2 has been dropped to 60%. Patient was started on Lasix 40 mg daily, she is in -2.3 liters negative net fluid balance over the last 24 hours. Lower extremity edema is very m inimal. Labs have been reviewed, white blood cell count is 5.3, hemoglobin is 8.6, platelet count is 114, sodium is 136, potassium is 3.8, chloride is 95, CO2 is 37, BUN is 46, creatinine is 1.79, renal profile is actually improving. Patient continues on daptomycin for enterococcus faecalis in her urine culture. Chest x-ray today showing persistent reticulonodular densities throughout both lung doran with increasing right lower lobe density which may reflect focal consolidation and atelectasis and/or developing effusion. Objective - Vital Signs Vital signs: Vital Signs Temp 98.1 F 12/22/21 08:00 Pulse 68 12/22/21 11:48 Resp 17 12/22/21 11:39 BP 158/65 12/22/21 11:39 Pulse Ox 100 12/22/21 11:39 Intake & Output 12/21/21 12/22/21 12/22/21 18:59 06:59 18:59 Intake Total 120 Output Total 1800 550 525 Balance -1800 -550 -405 Weight 100.5 kg 100.5 kg Intake: Oral 120 Output: Urine 1800 550 525 Stool 0 0 Other: Voiding Method Indwelling Catheter Indwelling Catheter Indwelling Catheter # Bowel Movements 1 - Exam GENERAL EXAM: Somnolent, but easily arousable, 71-year-old white female, resting in bed, currently on 8 L of oxygen pulse ox is 97% does not appear to be in any acute distress comfortable in no apparent distress. HEAD: Normocephalic/atraumatic. EYES: Normal reaction of pupils, equal size. Conjunctiva pink, sclera white. NOSE: Clear with pink turbinates. THROAT: No erythema or exudates. NECK: No masses, no JVD, no thyroid enlargement, no adenopathy. CHEST: No chest wall deformity. Symmetrical expansion. LUNGS: Diminished air entry with no crackles, wheeze, rhonchi or dullness. CVS: Regular rate and rhythm, normal S1 and S2, no gallops, no murmurs, no rubs ABDOMEN: Soft, nontender. No hepatosplenomegaly, normal bowel sounds, no guarding or rigidity. EXTREMITIES: No clubbing, no edema, no cyanosis, 2+ pulses and upper and lower extremities. MUSCULOSKELETAL: Muscle strength and tone normal. SPINE: No scoliosis or deformity SKIN: No rashes CENTRAL NERVOUS SYSTEM: Alert and oriented -3. No focal deficits, tone is normal in all 4 extremities. PSYCHIATRIC: Alert and oriented -3. Appropriate affect. Intact judgment and insight. - Labs CBC & Chem 7: 12/22/21 06:51 12/22/21 06:51 Labs: Abnormal Lab Results - Last 24 Hours (Table) 12/21/21 12/21/21 12/22/21 Range/Units 16:39 19:54 05:44 RBC (3.80-5.40) m/uL Hgb (11.4-16.0) gm/dL Hct (34.0-46.0) % MCH (25.0-35.0) pg MCHC (31.0-37.0) g/dL Plt Count (150-450) k/uL Lymphocytes # (1.0-4.8) k/uL Sodium (137-145) mmol/L Chloride (98-107) mmol/L Carbon Dioxide (22-30) mmol/L BUN (7-17) mg/dL Creatinine (0.52-1.04) mg/dL Glucose (74-99) mg/dL POC Glucose (mg/dL) 221 H 156 H 103 H (75-99) mg/dL 12/22/21 12/22/21 12/22/21 Range/Units 06:51 06:51 11:44 RBC 3.52 L (3.80-5.40) m/uL Hgb 8.6 L (11.4-16.0) gm/dL Hct 29.2 L (34.0-46.0) % MCH 24.4 L (25.0-35.0) pg MCHC 29.5 L (31.0-37.0) g/dL Plt Count 114 L (150-450) k/uL Lymphocytes # 0.4 L (1.0-4.8) k/uL Sodium 136 L (137-145) mmol/L Chloride 95 L (98-107) mmol/L Carbon Dioxide 37 H (22-30) mmol/L BUN 46 H (7-17) mg/dL Creatinine 1.79 H (0.52-1.04) mg/dL Glucose 137 H (74-99) mg/dL POC Glucose (mg/dL) 203 H (75-99) mg/dL Assessment and Plan Plan: Assessment: #1. Acute on chronic hypoxic respiratory failure, related to acute exacerbation of CHF with diastolic dysfunction #2. 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 Prior history of acute respiratory distress syndrome requiring prolonged intubation and mechanical ventilation and eventual tracheostomy tube insertion with subsequent decannulation #4. History of severe COPD, the baseline FEV1 of 41% of predicted #5. History of hypothyroidism #6. History of diabetes mellitus type 2 #7. History of hypertension #8. Previous COVID-19 infection in September 2021 #9. Chronic kidney disease stage IIIB with a component of an acute kidney injury possibly secondary to diuretics, improving #10. Moderately severe pulmonary hypertension #11. Morbid obesity with BMI of 42 kg/m #12. Acute urinary tract infection related to enterococcus faecalis, currently on daptomycin, initially treated with Levaquin Plan: Patient was placed on BiPAP support today with pressures of 12 and 6 and FiO2 currently at 60% She is breathing more comfortably She may wear BiPAP support on and off intermittently and at bedtime This chest x-ray and labs reviewed Continue with current dose diuretics per nephrology Continue inhaled bronchodilators Encouraged the patient deep breathe and cough Sit up in the chair The daughter is asking about home BiPAP device Yesterday's blood gas was noted, and that was done on 65% FiO2 Patient will need a repeat blood gas done closer to discharge and likely an overnight pulse oximetry study For now continue current medical treatment I have personally seen and examined the patient and reviewed the documentation. I performed a joint evaluation with the nurse practitioner in this evaluation was done more than 20 minutes. I fully agree with the documentation above and the plan of care. Discussed the case with the daughter the bedside. The patie nt is quite debilitated post-COVID. We'll restart diuretics. We will going to use on and off BiPAP for respiratory support for acute on top of chronic hypoxic and hypercapnic respiratory failure. She is quite debilitated and she has multiple comorbidities. Her COPD is advanced and severe. We'll continue to follow. Overall prognosis remains poor baseline above-mentioned comorbidities. Time with Patient: Less than 30
--- NOTE | 2021-12-22 13:41 | P.PN ---
Subjective HISTORY OF PRESENTING ILLNESS This is a pleasant 71-year-old female past medical history significant for COPD requiring supplemental home oxygen diabetes hypertension hypothyroidism and morbid obesity. 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 We have been asked to see in consultation for acute congestive heart failure. Patient was brought into the ER by her daughter for increased shortness of breath. Patient had Covid in September 2021 and since that time she has been requiring increased supplemental oxygen. She reports she has moderate exertional dyspnea. Patient started on IV Lasix in the emergency department. Echocardiogram revealed normal ejection fraction 5560 percent, mild aortic stenosis, moderate to severe pulmonary hypertension Patient seen and examined at bedside, she continues to be short of breath and have bilateral lower extremity edema. She is currently maintained on IV Lasix 40 mg daily. Patient with 2350 mL urine output over the past 24 hours. Improvement in renal function. Blood pressure 158/65, heart rate 63, afebrile. Patient requiring BIPAP. Labs, sodium 136, potassium 3.8, BUN 46, serum creatinine 1.79, magnesium 1.9 GENERAL: Lethargic, no acute distress. NECK: Supple without JVD or thyromegaly. LUNGS: Breath sounds diminished to auscultation bilaterally. Respiration equal and unlabored. No wheezes, rales or rhonchi. HEART: Regular rate and rhythm without murmurs, rubs or gallops. S1 and S2 heard. EXTREMITIES: 2+ bilateral lower extremity edema. No clubbing or cyanosis. Peripheral pulses intact. ASSESSMENT Heart failure exacerbation secondary to heart failure with preserved ejection fraction Acute on Chronic kidney disease Aortic stenosis COPD Type 2 diabetes Hypertension Hypothyroidism PLAN IV Lasix continued per nephrology Patient not on acei/arb due to JEWEL Monitor BP, would ideally want BP better controlled, however at this time will continue current medical therapy due to renal function Continue amlodipine, hydralazine, beta fariba, statin Monitor intake/outputs, renal function and electrolytes Further recommendations based on clinical course Nurse Practitioner note has been reviewed, I agree with a documented findings and plan of care. Patient was seen and examined. Objective - Vital Signs Vital signs: Vital Signs Temp 98.1 F 12/22/21 08:00 Pulse 68 12/22/21 11:48 Resp 17 12/22/21 11:39 BP 158/65 12/22/21 11:39 Pulse Ox 100 12/22/21 11:39 Intake & Output 12/21/21 12/22/21 12/22/21 18:59 06:59 18:59 Intake Total 120 Output Total 1800 550 525 Balance -1800 -550 -405 Weight 100.5 kg 100.5 kg Intake: Oral 120 Output: Urine 1800 550 525 Stool 0 0 Other: Voiding Method Indwelling Catheter Indwelling Catheter Indwelling Catheter # Bowel Movements 1 - Labs CBC & Chem 7: 12/22/21 06:51 12/22/21 06:51 Labs: Abnormal Lab Results - Last 24 Hours (Table) 12/21/21 12/21/21 12/22/21 Range/Units 16:39 19:54 05:44 RBC (3.80-5.40) m/uL Hgb (11.4-16.0) gm/dL Hct (34.0-46.0) % MCH (25.0-35.0) pg MCHC (31.0-37.0) g/dL Plt Count (150-450) k/uL Lymphocytes # (1.0-4.8) k/uL Sodium (137-145) mmol/L Chloride (98-107) mmol/L Carbon Dioxide (22-30) mmol/L BUN (7-17) mg/dL Creatinine (0.52-1.04) mg/dL Glucose (74-99) mg/dL POC Glucose (mg/dL) 221 H 156 H 103 H (75-99) mg/dL 12/22/21 12/22/21 12/22/21 Range/Units 06:51 06:51 11:44 RBC 3.52 L (3.80-5.40) m/uL Hgb 8.6 L (11.4-16.0) gm/dL Hct 29.2 L (34.0-46.0) % MCH 24.4 L (25.0-35.0) pg MCHC 29.5 L (31.0-37.0) g/dL Plt Count 114 L (150-450) k/uL Lymphocytes # 0.4 L (1.0-4.8) k/uL Sodium 136 L (137-145) mmol/L Chloride 95 L (98-107) mmol/L Carbon Dioxide 37 H (22-30) mmol/L BUN 46 H (7-17) mg/dL Creatinine 1.79 H (0.52-1.04) mg/dL Glucose 137 H (74-99) mg/dL POC Glucose (mg/dL) 203 H (75-99) mg/dL
[2021-12-22 16:32] LABS: Glucose,Whole Blood 242 mg/dL (75-99)
[2021-12-22] MEDS: DAPTOmycin 500 MG in SODIUM CHLORIDE 0.9% 50 ML IVPB SCH (17:18)
[2021-12-22 20:03] LABS: Glucose,Whole Blood 168 mg/dL (75-99)
[2021-12-22] MEDS: MONTELUKAST 10 MG TAB PO SCH (20:15)
[2021-12-22] MEDS: SERTRALINE 100 MG TAB PO SCH (20:15)
[2021-12-22] MEDS: PRAVASTATIN SODIUM 40 MG TAB PO SCH (20:15)
[2021-12-23] MEDS: LORazepam 2 MG/ML INJ IV PRN (03:27)
[2021-12-23 06:16] LABS: Glucose,Whole Blood 165 mg/dL (75-99)
[2021-12-23] MEDS: INSULIN ASPART (NovoLOG) 100 UNIT/ML VIAL SQ SCH ×4 (06:56→21:10)
[2021-12-23] MEDS: LEVOTHYROXINE 88 MCG TAB PO SCH (06:56)
[2021-12-23] MEDS: hydrALAZINE HCL 50 MG TAB PO SCH ×3 (06:56→21:10)
[2021-12-23 07:38] LABS: Calcium 8.5 mg/dL (8.4-10.2); Magnesium 1.9 mg/dL (1.6-2.3)
[2021-12-23] MEDS: IPRATROPIUM-ALBUTEROL 3 ML NEB INHALATION SCH ×4 (07:47→19:18)
[2021-12-23] MEDS: SYMBICORT 160-4.5 MCG INHALER INHALATION SCH ×2 (07:49→19:18)
[2021-12-23] MEDS: METOPROLOL TARTRATE 50 MG TAB PO SCH (08:17)
[2021-12-23] MEDS: amLODIPine 10 MG TAB PO SCH (08:17)
[2021-12-23] MEDS: TAMSULOSIN 0.4 MG CAP.ER.24H PO SCH (08:18)
[2021-12-23] MEDS: busPIRone HCl 5 MG TAB PO SCH ×2 (08:18→21:10)
[2021-12-23] MEDS: HEPARIN SODIUM,PORCINE/PF 5,000 UNIT/0.5 ML SYRINGE SQ SCH ×2 (08:18→21:10)
[2021-12-23] MEDS: THYROID, PORK 30 MG TAB PO SCH (08:18)
[2021-12-23] MEDS: FUROSEMIDE 10 MG/ML 4 ML VIAL IV SCH (08:18)
--- NOTE | 2021-12-23 09:22 | P.PN ---
Subjective Patient is seen in follow-up for acute kidney injury on chronic kidney disease. Renal function improving. Creatinine 1.65 today. French catheter placed for urinary retention. Nonoliguric. Patient resting in bed. On 8 L high flow cannula. Oral intake is fair. Awake and alert. Vital signs are stable. General: Awake and alert. HEENT: Head exam is unremarkable. On nasal cannula. LUNGS: Breath sounds decreased. HEART: Rate and Rhythm are regular. ABDOMEN: Soft, obese. EXTREMITITES: Trace edema. Objective - Vital Signs Vital signs: Vital Signs Temp 98.1 F 12/23/21 08:22 Pulse 70 12/23/21 08:22 Resp 18 12/23/21 08:22 BP 140/70 12/23/21 08:22 Pulse Ox 94 L 12/23/21 08:22 Intake & Output 12/22/21 12/23/21 12/23/21 18:59 06:59 18:59 Intake Total 240 Output Total 775 Balance -535 Weight 100.5 kg Intake: Oral 240 Output: Urine 775 Stool 0 Other: Voiding Method Indwelling Catheter Indwelling Catheter - Labs CBC & Chem 7: 12/22/21 06:51 12/23/21 06:42 Labs: Abnormal Lab Results - Last 24 Hours (Table) 12/22/21 12/22/21 12/22/21 Range/Units 11:44 16:26 19:54 Sodium (137-145) mmol/L Carbon Dioxide (22-30) mmol/L BUN (7-17) mg/dL Creatinine (0.52-1.04) mg/dL Glucose (74-99) mg/dL POC Glucose (mg/dL) 203 H 242 H 168 H (75-99) mg/dL 12/23/21 12/23/21 Range/Units 05:51 06:42 Sodium 135 L (137-145) mmol/L Carbon Dioxide 34 H (22-30) mmol/L BUN 43 H (7-17) mg/dL Creatinine 1.65 H (0.52-1.04) mg/dL Glucose 128 H (74-99) mg/dL POC Glucose (mg/dL) 165 H (75-99) mg/dL Assessment and Plan Plan: Assessment: 1. Acute kidney injury secondary to ATN secondary to cardiorenal syndrome. Creatinine was 1.7 on admission and peaked at 2.53 - 1.65 today. No hydronephrosis noted on kidney ultrasound. 2. Chronic kidney disease stage IIIB with baseline creatinine in the range of 1.2-1.4 in August 2019. Etiology is diabetic kidney disease. 3. Acute on chronic diastolic CHF with moderate to severe pulmonary hypertension. 4. Acute hypoxic respiratory failure. 5. Fluid overload. Improving with diuresis. 6. Diabetes. 7. Anemia of chronic kidney disease. Iron deficiency noted. 8. Hypertension with chronic kidney disease. Stable. 9. Urinary retention. French catheter placed 12/20/2021. On Flomax. Plan: Continue with Lasix 40 mg IV daily. Okay to resume low-dose ACEi/ARB as GFR stabilizing. Wean FiO2. Maintain IV iron - last dose today. Avoid nephrotoxins. Continue to monitor renal function and urine output.
[2021-12-23] MEDS ORDERED: NITROGLYCERIN SL TABS 0.4 MG TAB SUBLINGUAL ONE (11:25)
[2021-12-23 11:41] LABS: Glucose,Whole Blood 153 mg/dL (75-99)
[2021-12-23] MEDS: SODIUM FERRIC GLUCONAT-SUCROSE 125 MG in SODIUM CHLORIDE 0.9% 100 ML IVPB SCH (12:22)
--- NOTE | 2021-12-23 12:40 | P.PN ---
Subjective HISTORY OF PRESENTING ILLNESS This is a pleasant 71-year-old female past medical history significant for COPD requiring supplemental home oxygen diabetes hypertension hypothyroidism and morbid obesity. She does not follow with a medical payment poster. We have been asked to see in consultation for acute congestive heart failure. Patient was brought into the ER by her daughter for increased shortness of breath. Patient had Covid in September 2021 and since that time she has been requiring increased supplemental oxygen. She reports she has moderate exertional dyspnea. Patient started on IV Lasix in the emergency department. Echocardiogram revealed normal ejection fraction 5560 percent, mild aortic stenosis, moderate to severe pulmonary hypertension Patient seen and examined at bedside, she continues to be short of breath and have bilateral lower extremity edema. She is currently maintained on IV Lasix 40 mg daily. Good urine output. Improvement in renal function. Blood pressure 138/72, heart rate 72, afebrile, saturations 92% on high flow nasal cannula 8L Labs, sodium 135, potassium 4.0, BUN 43, serum creatinine 1.6, magnesium 1.9 GENERAL: In no acute distress. NECK: Supple without JVD or thyromegaly. LUNGS: Breath sounds diminished to auscultation bilaterally. Respiration equal and unlabored. No wheezes, rales or rhonchi. HEART: Regular rate and rhythm without murmurs, rubs or gallops. S1 and S2 heard. EXTREMITIES: 2+ bilateral lower extremity edema. No clubbing or cyanosis. Peripheral pulses intact. NEURO: Alert and oriented x 3 ASSESSMENT Heart failure exacerbation secondary to heart failure with preserved ejection f raction Acute on Chronic kidney disease Aortic stenosis COPD Type 2 diabetes Hypertension Hypothyroidism PLAN IV Lasix continued per nephrology Patient not on acei/arb due to JEWEL Continue amlodipine, hydralazine, beta fariba, statin Monitor intake/outputs, renal function and electrolytes Further recommendations based on clinical course Nurse Practitioner note has been reviewed, I agree with a documented findings and plan of care. Patient was seen and examined. Objective - Vital Signs Vital signs: Vital Signs Temp 97.8 F 12/23/21 12:21 Pulse 72 12/23/21 12:21 Resp 18 12/23/21 12:21 BP 138/72 12/23/21 12:21 Pulse Ox 92 L 12/23/21 12:21 Intake & Output 12/22/21 12/23/21 12/23/21 18:59 06:59 18:59 Intake Total 240 Output Total 775 900 Balance -535 -900 Weight 100.5 kg Intake: Oral 240 Output: Urine 775 900 Stool 0 Other: Voiding Method Indwelling Catheter Indwelling Catheter Indwelling Catheter - Labs CBC & Chem 7: 12/22/21 06:51 12/23/21 06:42 Labs: Abnormal Lab Results - Last 24 Hours (Table) 12/22/21 12/22/21 12/23/21 Range/Units 16:26 19:54 05:51 Sodium (137-145) mmol/L Carbon Dioxide (22-30) mmol/L BUN (7-17) mg/dL Creatinine (0.52-1.04) mg/dL Glucose (74-99) mg/dL POC Glucose (mg/dL) 242 H 168 H 165 H (75-99) mg/dL 12/23/21 12/23/21 Range/Units 06:42 11:40 Sodium 135 L (137-145) mmol/L Carbon Dioxide 34 H (22-30) mmol/L BUN 43 H (7-17) mg/dL Creatinine 1.65 H (0.52-1.04) mg/dL Glucose 128 H (74-99) mg/dL POC Glucose (mg/dL) 153 H (75-99) mg/dL
--- NOTE | 2021-12-23 13:02 | P.PN ---
Subjective Progress Note Date: 12/23/21 This is a 71-year-old female with past medical history of COPD, on home O2, diabetes mellitus type 2, hypertension admitted with shortness of breath, fluid overload, underlying CHF exacerbation and multiple other medical issues.Maintained on nebulized bronchodilators, Levaquin and Lasix IV push.Diuresing well on Lasix IV push, denies increased shortness of breath except positive exertional shortness of breath, denies cough. Decreasing edema. Worsening renal function, creatinine 2.53. Currently maintaining O2 sats in the high 80s to 2 mid 90s on 8 L high flow nasal cannula. Echo reported normal LV function, EF 55-60%, mild aortic stenosis, moderate to severe pulmonary hypertension. Afebrile. 12/20/2021 tired this morning, unable to sleep well last night secondary to chronic back pain, received tramadol. Mild confusion this morning. Incentive spirometer up to 500. Patient back up to 10 L high flow nasal cannula, maintaining O2 sats in the low 90s. Staff reports patient is a 3 person assist to and from bedside commode, desats with exertion down to 82%. Diuretics discontinued yesterday, renal function improving, creatinine down to 2.25. Chest x-ray reporting ongoing CHF and mild interstitial pulmonary edema superimposed on COPD, continue spot a moderate left pleural effusion with adjacent atelectasis and/or consolidation. Received a dose Lasix IV push. Afebrile, normal WBC. 12/21/2021 last night family believed patient to be more lethargic, ABGs drawn, CO2 60, received a dose of Diamox, CO2 this morning decreased to 36. Continues on 8 L high flow nasal cannula maintaining O2 sats of 97 and 98%. Yesterday antibiotics adjusted to daptomycin as urine culture reported enterococcus faecalis, resistant to quinolones, in a patient with penicillin ALLERGIES, with a elevated creatinine.afebrile renal function improving, BUN 49, creatinine 1.99. Required French catheter for urinary retention .Flomax added to med.[email or web address].yesterday he received a dose of Lasix IV push, 24-hour I&O reflecting a negative fluid balance .Continues on IV iron. 12/22/2021 sensorium significantly improved, much more alert. Reports she feels better. Bicarb 37. Maintaining O2 sats in the low 90s on 8 L high flow nasal cannula. Chest x-ray continues to report persistent reticulonodular densities bilaterally with increased right lower lobe density. Continues on daptomycin. Diuresing well on Lasix IV push with 24-hour I reflecting a negative fluid balance. Renal function trending down ,BUN 46, creatinine 1.79. Continues on IV iron. Objective - Vital Signs Vital signs: Vital Signs Temp 97.8 F 12/23/21 12:21 Pulse 72 12/23/21 12:21 Resp 18 12/23/21 12:21 BP 138/72 12/23/21 12:21 Pulse Ox 92 L 12/23/21 12:21 Intake & Output 12/22/21 12/23/21 12/23/21 18:59 06:59 18:59 Intake Total 240 Output Total 775 900 Balance -535 -900 Weight 100.5 kg Intake: Oral 240 Output: Urine 775 900 Stool 0 Other: Voiding Method Indwelling Catheter Indwelling Catheter Indwelling Catheter - Exam Exam General: Alert and oriented 3,alert ,Sitting up in bed, NAD. Obese. Vitals reviewed Eyes: PERRL, EOMI, conjunctiva normal HENT: normocephalic, mucus membranes moist Neck: supple, no JVD Lungs: Diminished air entry. CV: Regular rate and rhythm, systolic murmur. Trace edema. Abdomen: soft, nondistended, no organomegaly, +bs Skin: warm and dry, no rash. Neuro: Cranial nerves II through XII grossly intact. No focal deficits. - Labs CBC & Chem 7: 12/22/21 06:51 12/23/21 06:42 Labs: Abnormal Lab Results - Last 24 Hours (Table) 12/22/21 12/22/21 12/23/21 Range/Units 16:26 19:54 05:51 Sodium (137-145) mmol/L Carbon Dioxide (22-30) mmol/L BUN (7-17) mg/dL Creatinine (0.52-1.04) mg/dL Glucose (74-99) mg/dL POC Glucose (mg/dL) 242 H 168 H 165 H (75-99) mg/dL 12/23/21 12/23/21 Range/Units 06:42 11:40 Sodium 135 L (137-145) mmol/L Carbon Dioxide 34 H (22-30) mmol/L BUN 43 H (7-17) mg/dL Creatinine 1.65 H (0.52-1.04) mg/dL Glucose 128 H (74-99) mg/dL POC Glucose (mg/dL) 153 H (75-99) mg/dL Assessment and Plan Assessment: Acute on chronic CHF exacerbation, diastolic dysfunction Moderate to severe pulmonary hypertension, RVSP 55.45 Acute UTI with enterococcus faecalis Recent covid infection infection 09/27 Acute on chronic hypoxic, hypercapnic respiratory failure secondary to all the above, prn BiPAP COPD Acute on Chronic kidney disease, stage IIIB, secondary to ATN related to cardiorenal syndrome Anemia of chronic kidney disease, iron deficient Urinary retention Hypertension Aortic Stenosis,mild Hypothyroidism Diabetes mellitus type 2 Morbid obesity, BMI 42.3 plan: Continue on current medication regime ,monitoring and symptomatic treatment. Bipap prn.continue on daptomycin, IV iron, Lasix IV push. Close monitoring of renal function with repeat labs ordered for a.m. maintain aggressive pulmonary toileting, nebulized bronchodilators. Prognosis guarded given multiple complex medical issues. The impression and plan of care has been dictated as directed. : I performed a history and examination of this patient, discussed the same with the dictator. I agree with the dictator's note ,documented as a scribe. Any additional findings or plans will be noted.
--- NOTE | 2021-12-23 13:04 | P.PN ---
Subjective Progress Note Date: 12/22/21 This is a 71-year-old female with past medical history of COPD, on home O2, diabetes mellitus type 2, hypertension admitted with shortness of breath, fluid overload, underlying CHF exacerbation and multiple other medical issues.Maintained on nebulized bronchodilators, Levaquin and Lasix IV push.Diuresing well on Lasix IV push, denies increased shortness of breath except positive exertional shortness of breath, denies cough. Decreasing edema. Worsening renal function, creatinine 2.53. Currently maintaining O2 sats in the high 80s to 2 mid 90s on 8 L high flow nasal cannula. Echo reported normal LV function, EF 55-60%, mild aortic stenosis, moderate to severe pulmonary hypertension. Afebrile. 12/20/2021 tired this morning, unable to sleep well last night secondary to chronic back pain, received tramadol. Mild confusion this morning. Incentive spirometer up to 500. Patient back up to 10 L high flow nasal cannula, maintaining O2 sats in the low 90s. Staff reports patient is a 3 person assist to and from bedside commode, desats with exertion down to 82%. Diuretics discontinued yesterday, renal function improving, creatinine down to 2.25. Chest x-ray reporting ongoing CHF and mild interstitial pulmonary edema superimposed on COPD, continue spot a moderate left pleural effusion with adjacent atelectasis and/or consolidation. Received a dose Lasix IV push. Afebrile, normal WBC. 12/21/2021 last night family believed patient to be more lethargic, ABGs drawn, CO2 60, received a dose of Diamox, CO2 this morning decreased to 36. Continues on 8 L high flow nasal cannula maintaining O2 sats of 97 and 98%. Yesterday antibiotics adjusted to daptomycin as urine culture reported enterococcus faecalis, resistant to quinolones, in a patient with penicillin ALLERGIES, with a elevated creatinine.afebrile renal function improving, BUN 49, creatinine 1.99. Required French catheter for urinary retention .Flomax added to med.regimen.yesterday he received a dose of Lasix IV push, 24-hour I&O reflecting a negative fluid balance .Continues on IV iron. 12/22/2021 sensorium significantly improved, much more alert. Reports she feels better. Bicarb 37. Maintaining O2 sats in the low 90s on 8 L high flow nasal cannula. Chest x-ray continues to report persistent reticulonodular densities bilaterally with increased right lower lobe density. Continues on daptomycin. Diuresing well on Lasix IV push with 24-hour I reflecting a negative fluid balance. Renal function trending down ,BUN 46, creatinine 1.79. Continues on IV iron. Objective - Vital Signs Vital signs: Vital Signs Temp 98.1 F 12/22/21 08:00 Pulse 68 12/22/21 11:48 Resp 17 12/22/21 11:39 BP 158/65 12/22/21 11:39 Pulse Ox 100 12/22/21 11:39 Intake & Output 12/21/21 12/22/21 12/22/21 18:59 06:59 18:59 Intake Total 120 Output Total 1800 550 525 Balance -1800 -550 -405 Weight 100.5 kg 100.5 kg Intake: Oral 120 Output: Urine 1800 550 525 Stool 0 0 Other: Voiding Method Indwelling Catheter Indwelling Catheter Indwelling Catheter # Bowel Movements 1 - Exam Exam General: Alert and oriented 3,alert ,Sitting up in bed, NAD. Obese. Vitals reviewed Eyes: PERRL, EOMI, conjunctiva normal HENT: normocephalic, mucus membranes moist Neck: supple, no JVD Lungs: Diminished air entry. CV: Regular rate and rhythm, systolic murmur. Trace edema. Abdomen: soft, nondistended, no organomegaly, +bs Skin: warm and dry, no rash. Neuro: Cranial nerves II through XII grossly intact. No focal deficits. - Labs CBC & Chem 7: 12/22/21 06:51 12/23/21 06:42 Labs: Abnormal Lab Results - Last 24 Hours (Table) 12/21/21 12/21/21 12/22/21 Range/Units 16:39 19:54 05:44 RBC (3.80-5.40) m/uL Hgb (11.4-16.0) gm/dL Hct (34.0-46.0) % MCH (25.0-35.0) pg MCHC (31.0-37.0) g/dL Plt Count (150-450) k/uL Lymphocytes # (1.0-4.8) k/uL Sodium (137-145) mmol/L Chloride (98-107) mmol/L Carbon Dioxide (22-30) mmol/L BUN (7-17) mg/dL Creatinine (0.52-1.04) mg/dL Glucose (74-99) mg/dL POC Glucose (mg/dL) 221 H 156 H 103 H (75-99) mg/dL 12/22/21 12/22/21 12/22/21 Range/Units 06:51 06:51 11:44 RBC 3.52 L (3.80-5.40) m/uL Hgb 8.6 L (11.4-16.0) gm/dL Hct 29.2 L (34.0-46.0) % MCH 24.4 L (25.0-35.0) pg MCHC 29.5 L (31.0-37.0) g/dL Plt Count 114 L (150-450) k/uL Lymphocytes # 0.4 L (1.0-4.8) k/uL Sodium 136 L (137-145) mmol/L Chloride 95 L (98-107) mmol/L Carbon Dioxide 37 H (22-30) mmol/L BUN 46 H (7-17) mg/dL Creatinine 1.79 H (0.52-1.04) mg/dL Glucose 137 H (74-99) mg/dL POC Glucose (mg/dL) 203 H (75-99) mg/dL Assessment and Plan Assessment: Acute on chronic CHF exacerbation, diastolic dysfunction Moderate to severe pulmonary hypertension, RVSP 55.45 Acute UTI with enterococcus faecalis Recent covid infection infection 09/27 Acute on chronic hypoxic, hypercapnic respiratory failure secondary to all the above, prn BiPAP COPD Acute on Chronic kidney disease, stage IIIB, secondary to ATN related to cardiorenal syndrome Anemia of chronic kidney disease, iron deficient Urinary retention Hypertension Aortic Stenosis,mild Hypothyroidism Diabetes mellitus type 2 Morbid obesity, BMI 42.3 plan: Continue on current medication regime ,monitoring and symptomatic treatment. Bipap prn.continue on daptomycin, IV iron, Lasix IV push. Close monitoring of renal function with repeat labs ordered for a.m. maintain aggressive pulmonary toileting, nebulized bronchodilators. Prognosis guarded given multiple complex medical issues. The impression and plan of care has been dictated as directed. : I performed a history and examination of this patient, discussed the same with the dictator. I agree with the dictator's note ,documented as a scribe. Any additional findings or plans will be noted.
--- NOTE | 2021-12-23 13:19 | P.PN ---
Subjective Progress Note Date: 12/23/21 This is a 71-year-old female with past medical history of COPD, on home O2, diabetes mellitus type 2, hypertension admitted with shortness of breath, fluid overload, underlying CHF exacerbation and multiple other medical issues.Maintained on nebulized bronchodilators, Levaquin and Lasix IV push.Diuresing well on Lasix IV push, denies increased shortness of breath except positive exertional shortness of breath, denies cough. Decreasing edema. Worsening renal function, creatinine 2.53. Currently maintaining O2 sats in the high 80s to 2 mid 90s on 8 L high flow nasal cannula. Echo reported normal LV function, EF 55-60%, mild aortic stenosis, moderate to severe pulmonary hypertension. Afebrile. 12/20/2021 tired this morning, unable to sleep well last night secondary to chronic back pain, received tramadol. Mild confusion this morning. Incentive spirometer up to 500. Patient back up to 10 L high flow nasal cannula, maintaining O2 sats in the low 90s. Staff reports patient is a 3 person assist to and from bedside commode, desats with exertion down to 82%. Diuretics discontinued yesterday, renal function improving, creatinine down to 2.25. Chest x-ray reporting ongoing CHF and mild interstitial pulmonary edema superimposed on COPD, continue spot a moderate left pleural effusion with adjacent atelectasis and/or consolidation. Received a dose Lasix IV push. Afebrile, normal WBC. 12/21/2021 last night family believed patient to be more lethargic, ABGs drawn, CO2 60, received a dose of Diamox, CO2 this morning decreased to 36. Continues on 8 L high flow nasal cannula maintaining O2 sats of 97 and 98%. Yesterday antibiotics adjusted to daptomycin as urine culture reported enterococcus faecalis, resistant to quinolones, in a patient with penicillin ALLERGIES, with a elevated creatinine.afebrile renal function improving, BUN 49, creatinine 1.99. Required French catheter for urinary retention .Flomax added to med.regimen.yesterday he received a dose of Lasix IV push, 24-hour I&O reflecting a negative fluid balance .Continues on IV iron. 12/22/2021 sensorium significantly improved, much more alert. Reports she feels better. Bicarb 37. Maintaining O2 sats in the low 90s on 8 L high flow nasal cannula. Chest x-ray continues to report persistent reticulonodular densities bilaterally with increased right lower lobe density. Continues on daptomycin. Diuresing well on Lasix IV push with 24-hour I reflecting a negative fluid balance. Renal function trending down ,BUN 46, creatinine 1.79. Continues on IV iron. 12/23/2021 maintained on 8 L nasal cannula high flow,O2 sats in the 90s, BiPAP during the night. CO2 34. Minimal cough. Continues on daptomycin. Renal function improving. Afebrile. Objective - Vital Signs Vital signs: Vital Signs Temp 97.8 F 12/23/21 12:21 Pulse 72 12/23/21 12:21 Resp 18 12/23/21 12:21 BP 138/72 12/23/21 12:21 Pulse Ox 92 L 12/23/21 12:21 Intake & Output 12/22/21 12/23/21 12/23/21 18:59 06:59 18:59 Intake Total 240 Output Total 775 900 Balance -535 -900 Weight 100.5 kg Intake: Oral 240 Output: Urine 775 900 Stool 0 Other: Voiding Method Indwelling Catheter Indwelling Catheter Indwelling Catheter - Exam Exam General: Alert and oriented 3,alert ,Sitting up in bed, NAD. Obese. Vitals reviewed Eyes: PERRL, EOMI, conjunctiva normal HENT: normocephalic, mucus membranes moist Neck: supple, no JVD Lungs: Diminished air entry. CV: Regular rate and rhythm, systolic murmur. Trace edema. Abdomen: soft, nondistended, no organomegaly, +bs Skin: warm and dry, no rash. Neuro: Cranial nerves II through XII grossly intact. No focal deficits. - Labs CBC & Chem 7: 12/22/21 06:51 12/23/21 06:42 Labs: Abnormal Lab Results - Last 24 Hours (Table) 12/22/21 12/22/21 12/23/21 Range/Units 16:26 19:54 05:51 Sodium (137-145) mmol/L Carbon Dioxide (22-30) mmol/L BUN (7-17) mg/dL Creatinine (0.52-1.04) mg/dL Glucose (74-99) mg/dL POC Glucose (mg/dL) 242 H 168 H 165 H (75-99) mg/dL 12/23/21 12/23/21 Range/Units 06:42 11:40 Sodium 135 L (137-145) mmol/L Carbon Dioxide 34 H (22-30) mmol/L BUN 43 H (7-17) mg/dL Creatinine 1.65 H (0.52-1.04) mg/dL Glucose 128 H (74-99) mg/dL POC Glucose (mg/dL) 153 H (75-99) mg/dL Assessment and Plan Assessment: Acute on chronic CHF exacerbation, diastolic dysfunction Moderate to severe pulmonary hypertension, RVSP 55.45 Acute UTI with enterococcus faecalis Recent covid infection infection 09/27 Acute on chronic hypoxic, hypercapnic respiratory failure secondary to all the above, prn BiPAP COPD Acute on Chronic kidney disease, stage IIIB, secondary to ATN related to cardiorenal syndrome Anemia of chronic kidney disease, iron deficient Urinary retention Hypertension Aortic Stenosis,mild Hypothyroidism Diabetes mellitus type 2 Morbid obesity, BMI 42.3 plan: Continue on current medication regime ,monitoring and symptomatic treatment. Bipap prn. Maintain daptomycin, diuretics. Aggressive pulmonary toileting, nebulized bronchodilators. Prognosis guarded given multiple complex medical issues- discussed with daughter this morning at bedside via phone. Discharge planning soon pending pulmonary clearance. The impression and plan of care has been dictated as directed. : I performed a history and examination of this patient, discussed the same with the dictator. I agree with the dictator's note ,documented as a scribe. Any additional findings or plans will be noted.
--- NOTE | 2021-12-23 13:51 | XR ---
EXAMINATION TYPE: XR chest 1V portable DATE OF EXAM: 12/23/2021 CLINICAL HISTORY: Difficulty breathing progress study. TECHNIQUE: Single AP portable upright view of the chest is obtained. COMPARISON: Chest x-ray from one day earlier and older studies. FINDINGS: Stable mild cardiomegaly without radiographic contrast aorta. Reticular interstitial promi nence bilaterally remains present with left greater than right bibasilar opacities. Osseous structure s are intact. IMPRESSION: Mild cardiomegaly with bilateral diffuse reticulonodular infiltrates and/or edema redemon strated. Persistent left greater than right bibasilar acute infiltrate and/or atelectasis. Persistent small size left greater than right pleural effusions. No significant change from most recent x-ray.
--- NOTE | 2021-12-23 14:11 | P.PN ---
Subjective Progress Note Date: 12/23/21 On 12/21/2021 patient seen in follow-up on selective care unit, she is resting in bed today, her daughter is at the bedside, and she states the patient is noted to be a bit more confused today, she is moaning and groaning but at the same time she denies any pain. She is awake, she is answering questions, she is oriented 3. She remains on 8 L of oxygen pulse ox is 97%, lung sounds are diminished, with minimal crackles at the bases, she is maintaining negative fluid balance and she is in -1.5 L in the last 24 hours, she received a dose of IV Lasix yesterday and today per nephrology. She is being treated for a urinary tract infection related to enterococcus faecalis, and patient was initially on Levaquin and subsequently sensitivity revealed resistance to Levaquin. Patient is currently on daptomycin per primary care service. She's been afebrile overnight. Hemodynamically she has been stable. Overall fluid volume status is improving, and her last chest x-ray was showing improved appearance of interstitial edema. Today's labs have been reviewed, sodium is 137, potassium is 4.2, chloride is 95, CO2 is 36, BUN is 49, creatinine is 1.99, showing an improvement in the renal function trend. CBC is still pending right now. On 12/22/2021 patient is seen in follow-up on selective care unit. Patient is awake and alert, oriented 3, she is currently on 8 L of oxygen pulse ox is 88- 89%. Clinically she feels short of breath today, although appears to be in no acute distress. We discussed possibility of BiPAP intermittently for increased shortness of breath and hypoxia, and patient would like to try it at this time. She was placed on BiPAP with pressures of 12 and 6 and FiO2 100%, she is getting good tidal volumes of around 700, minute ventilation is 15 L/m. Her O2 saturations on those above-mentioned settings were 99%, she is tolerating BiPAP support quite well. Seems to be rather comfortable. FiO2 has been dropped to 60%. Patient was started on Lasix 40 mg daily, she is in -2.3 liters negative net fluid balance over the last 24 hours. Lower extremity edema is very m inimal. Labs have been reviewed, white blood cell count is 5.3, hemoglobin is 8.6, platelet count is 114, sodium is 136, potassium is 3.8, chloride is 95, CO2 is 37, BUN is 46, creatinine is 1.79, renal profile is actually improving. Patient continues on daptomycin for enterococcus faecalis in her urine culture. Chest x-ray today showing persistent reticulonodular densities throughout both lung doran with increasing right lower lobe density which may reflect focal consolidation and atelectasis and/or developing effusion. On 12/23/2021 patient seen in follow-up on selective care unit. She is up in the chair today, she wore the BiPAP support most of the yesterday, and most of the night, she is currently off BiPAP, she is on high flow oxygen at 8 L, her pulse ox is 92-94%, breathing much more comfortably. Looks more comfortable on today's exam as well. She remains on daily dose of Lasix, she is a -535 ML net fluid balance over the last 24 hours. Her renal function is improving on today's labs. Vital signs have been stable. She remains on inhaled bronchodilators. Follow-up chest x-rays pending. Her appetite is improving, today's labs have been reviewed, sodium is 135, potassium 4.0, BUN is 43 creatinine is down to 1.65. Objective - Vital Signs Vital signs: Vital Signs Temp 97.8 F 12/23/21 12:21 Pulse 72 12/23/21 12:21 Resp 18 12/23/21 12:21 BP 138/72 12/23/21 12:21 Pulse Ox 92 L 12/23/21 12:21 Intake & Output 12/22/21 12/23/21 12/23/21 18:59 06:59 18:59 Intake Total 240 Output Total 775 900 Balance -535 -900 Weight 100.5 kg Intake: Oral 240 Output: Urine 775 900 Stool 0 Other: Voiding Method Indwelling Catheter Indwelling Catheter Indwelling Catheter - Exam GENERAL EXAM: Somnolent, but easily arousable, 71-year-old white female, resting in bed, currently on 8 L of oxygen pulse ox is 97% does not appear to be in any acute distress comfortable in no apparent distress. HEAD: Normocephalic/atraumatic. EYES: Normal reaction of pupils, equal size. Conjunctiva pink, sclera white. NOSE: Clear with pink turbinates. THROAT: No erythema or exudates. NECK: No masses, no JVD, no thyroid enlargement, no adenopathy. CHEST: No chest wall deformity. Symmetrical expansion. LUNGS: Diminished air entry with no crackles, wheeze, rhonchi or dullness. CVS: Regular rate and rhythm, normal S1 and S2, no gallops, no murmurs, no rubs ABDOMEN: Soft, nontender. No hepatosplenomegaly, normal bowel sounds, no guarding or rigidity. EXTREMITIES: No clubbing, no edema, no cyanosis, 2+ pulses and upper and lower extremities. MUSCULOSKELETAL: Muscle strength and tone normal. SPINE: No scoliosis or deformity SKIN: No rashes CENTRAL NERVOUS SYSTEM: Alert and oriented -3. No focal deficits, tone is normal in all 4 extremities. PSYCHIATRIC: Alert and oriented -3. Appropriate affect. Intact judgment and insight. - Labs CBC & Chem 7: 12/22/21 06:51 12/23/21 06:42 Labs: Abnormal Lab Results - Last 24 Hours (Table) 12/22/21 12/22/21 12/23/21 Range/Units 16:26 19:54 05:51 Sodium (137-145) mmol/L Carbon Dioxide (22-30) mmol/L BUN (7-17) mg/dL Creatinine (0.52-1.04) mg/dL Glucose (74-99) mg/dL POC Glucose (mg/dL) 242 H 168 H 165 H (75-99) mg/dL 12/23/21 12/23/21 Range/Units 06:42 11:40 Sodium 135 L (137-145) mmol/L Carbon Dioxide 34 H (22-30) mmol/L BUN 43 H (7-17) mg/dL Creatinine 1.65 H (0.52-1.04) mg/dL Glucose 128 H (74-99) mg/dL POC Glucose (mg/dL) 153 H (75-99) mg/dL Assessment and Plan Plan: Assessment: #1. Acute on chronic hypoxic respiratory failure, related to acute exacerbation of CHF with diastolic dysfunction #2. 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 Prior history of acute respiratory distress syndrome requiring prolonged intubation and mechanical ventilation and eventual tracheostomy tube insertion with subsequent decannulation #4. History of severe COPD, the baseline FEV1 of 41% of predicted #5. History of hypothyroidism #6. History of diabetes mellitus type 2 #7. History of hypertension #8. Previous COVID-19 infection in September 2021 #9. Chronic kidney disease stage IIIB with a component of an acute kidney injury possibly secondary to diuretics, improving #10. Moderately severe pulmonary hypertension #11. Morbid obesity with BMI of 42 kg/m #12. Acute urinary tract infection related to enterococcus faecalis, currently on daptomycin, initially treated with Levaquin Plan: Continue BiPAP support at bedtime and as needed for increased shortness of breath BiPAP settings / on FiO2 is currently at 60% FiO2 can be weaned down to keep O2 sats at or above 90% Follow-up chest x-rays pending Continue current medical treatment continue current dose of Lasix Encourage deep breathing and coughing Encouraged patient to sit up in the chair Encourage oral intake Not quite ready for discharge She still quite weak generally Continue current medical treatment I have personally seen and examined the patient and reviewed the documentation. I performed a joint evaluation with the nurse practitioner in this evaluation was done more than 20 minutes. I fully agree with the documentation above and the plan of care. Clinically the patient is feeling better. The patient will be kept on diuretics. We'll continue using BiPAP on and off during the day. While off the BiPAP, the patient on 8 L of oxygen by nasal cannula. Less short of breath compared to yesterday. Seems much more alert and awake. We'll continue to follow. Time with Patient: Less than 30
[2021-12-23 16:33] LABS: Glucose,Whole Blood 227 mg/dL (75-99)
[2021-12-23] MEDS: PRAVASTATIN SODIUM 40 MG TAB PO SCH (21:10)
[2021-12-23] MEDS: MONTELUKAST 10 MG TAB PO SCH (21:10)
[2021-12-23] MEDS: SERTRALINE 100 MG TAB PO SCH (21:10)
[2021-12-23 21:14] LABS: Glucose,Whole Blood 166 mg/dL (75-99)
[2021-12-24] MEDS: LORazepam 2 MG/ML INJ IV PRN (00:31)
[2021-12-24 06:42] LABS: Glucose,Whole Blood 127 mg/dL (75-99)
[2021-12-24] MEDS: INSULIN ASPART (NovoLOG) 100 UNIT/ML VIAL SQ SCH ×4 (07:19→20:38)
[2021-12-24] MEDS: LEVOTHYROXINE 88 MCG TAB PO SCH (07:20)
[2021-12-24] MEDS: hydrALAZINE HCL 50 MG TAB PO SCH ×3 (07:20→20:37)
[2021-12-24] MEDS: SYMBICORT 160-4.5 MCG INHALER INHALATION SCH ×2 (08:16→19:27)
[2021-12-24] MEDS: IPRATROPIUM-ALBUTEROL 3 ML NEB INHALATION SCH ×5 (08:17→19:27)
[2021-12-24] MEDS: THYROID, PORK 30 MG TAB PO SCH (10:56)
[2021-12-24] MEDS: busPIRone HCl 5 MG TAB PO SCH ×2 (10:57→20:37)
[2021-12-24] MEDS: HEPARIN SODIUM,PORCINE/PF 5,000 UNIT/0.5 ML SYRINGE SQ SCH ×2 (10:57→20:37)
[2021-12-24] MEDS: amLODIPine 10 MG TAB PO SCH (10:57)
[2021-12-24] MEDS: TAMSULOSIN 0.4 MG CAP.ER.24H PO SCH (10:57)
[2021-12-24] MEDS: METOPROLOL TARTRATE 50 MG TAB PO SCH (10:57)
[2021-12-24] MEDS: FUROSEMIDE 10 MG/ML 4 ML VIAL IV SCH (10:57)
[2021-12-24 11:54] LABS: Glucose,Whole Blood 255 mg/dL (75-99)
--- NOTE | 2021-12-24 13:15 | P.PN ---
Subjective Progress Note Date: 12/24/21 On 12/21/2021 patient seen in follow-up on selective care unit, she is resting in bed today, her daughter is at the bedside, and she states the patient is noted to be a bit more confused today, she is moaning and groaning but at the same time she denies any pain. She is awake, she is answering questions, she is oriented 3. She remains on 8 L of oxygen pulse ox is 97%, lung sounds are diminished, with minimal crackles at the bases, she is maintaining negative fluid balance and she is in -1.5 L in the last 24 hours, she received a dose of IV Lasix yesterday and today per nephrology. She is being treated for a urinary tract infection related to enterococcus faecalis, and patient was initially on Levaquin and subsequently sensitivity revealed resistance to Levaquin. Patient is currently on daptomycin per primary care service. She's been afebrile overnight. Hemodynamically she has been stable. Overall fluid volume status is improving, and her last chest x-ray was showing improved appearance of interstitial edema. Today's labs have been reviewed, sodium is 137, potassium is 4.2, chloride is 95, CO2 is 36, BUN is 49, creatinine is 1.99, showing an improvement in the renal function trend. CBC is still pending right now. On 12/22/2021 patient is seen in follow-up on selective care unit. Patient is awake and alert, oriented 3, she is currently on 8 L of oxygen pulse ox is 88- 89%. Clinically she feels short of breath today, although appears to be in no acute distress. We discussed possibility of BiPAP intermittently for increased shortness of breath and hypoxia, and patient would like to try it at this time. She was placed on BiPAP with pressures of 12 and 6 and FiO2 100%, she is getting good tidal volumes of around 700, minute ventilation is 15 L/m. Her O2 saturations on those above-mentioned settings were 99%, she is tolerating BiPAP support quite well. Seems to be rather comfortable. FiO2 has been dropped to 60%. Patient was started on Lasix 40 mg daily, she is in -2.3 liters negative net fluid balance over the last 24 hours. Lower extremity edema is very m inimal. Labs have been reviewed, white blood cell count is 5.3, hemoglobin is 8.6, platelet count is 114, sodium is 136, potassium is 3.8, chloride is 95, CO2 is 37, BUN is 46, creatinine is 1.79, renal profile is actually improving. Patient continues on daptomycin for enterococcus faecalis in her urine culture. Chest x-ray today showing persistent reticulonodular densities throughout both lung doran with increasing right lower lobe density which may reflect focal consolidation and atelectasis and/or developing effusion. On 12/23/2021 patient seen in follow-up on selective care unit. She is up in the chair today, she wore the BiPAP support most of the yesterday, and most of the night, she is currently off BiPAP, she is on high flow oxygen at 8 L, her pulse ox is 92-94%, breathing much more comfortably. Looks more comfortable on today's exam as well. She remains on daily dose of Lasix, she is a -535 ML net fluid balance over the last 24 hours. Her renal function is improving on today's labs. Vital signs have been stable. She remains on inhaled bronchodilators. Follow-up chest x-rays pending. Her appetite is improving, today's labs have been reviewed, sodium is 135, potassium 4.0, BUN is 43 creatinine is down to 1.65. 12/24/2021, the patient is much more awake and interactive and communicating. The patient has no new complaints. The patient is being diuresis with IV Lasix and the patient is currently on 40 mg of IV Lasix every 24 hours. Denies having any chest pain. She is comfortable in using her BiPAP also overnight. The patient remains in a negative fluid balance. The chest x-ray from yesterday was still showing evidence of CHF and fluid overload and it is anticipated to improve as the patient is being diuresis. As far as the renal function, it's also stable and the patient's creatinine from yesterday was 1.65 with a BUN of 43 and the sodium level is at 135. Awaiting follow-up labs and electrolytes from today. Meanwhile, the blood sugars at 255. While off the BiPAP, the patient is on 8 L of O2 by nasal cannula. Breathing is nonlabored. She is hemodynamically stable. She is afebrile. Objective - Vital Signs Vital signs: Vital Signs Temp 97.8 F 12/24/21 12:05 Pulse 79 12/24/21 12:05 Resp 18 12/24/21 12:05 BP 144/78 12/24/21 12:05 Pulse Ox 91 L 12/24/21 12:05 Intake & Output 12/23/21 12/24/21 12/24/21 18:59 06:59 18:59 Intake Total 120 120 Output Total 900 275 Balance -780 -275 120 Weight 100 kg Intake: Oral 120 120 Output: Urine 900 275 Other: Voiding Method Indwelling Catheter Indwelling Catheter Indwelling Catheter # Bowel Movements 1 - Exam GENERAL EXAM: Somnolent, but easily arousable, 71-year-old white female, resting in bed, currently on 8 L of oxygen pulse ox is 97% does not appear to be in any acute distress comfortable in no apparent distress. HEAD: Normocephalic/atraumatic. EYES: Normal reaction of pupils, equal size. Conjunctiva pink, sclera white. NOSE: Clear with pink turbinates. THROAT: No erythema or exudates. NECK: No masses, no JVD, no thyroid enlargement, no adenopathy. CHEST: No chest wall deformity. Symmetrical expansion. LUNGS: Diminished air entry with no crackles, wheeze, rhonchi or dullness. CVS: Regular rate and rhythm, normal S1 and S2, no gallops, no murmurs, no rubs ABDOMEN: Soft, nontender. No hepatosplenomegaly, normal bowel sounds, no guarding or rigidity. EXTREMITIES: No clubbing, no edema, no cyanosis, 2+ pulses and upper and lower extremities. MUSCULOSKELETAL: Muscle strength and tone normal. SPINE: No scoliosis or deformity SKIN: No rashes CENTRAL NERVOUS SYSTEM: Alert and oriented -3. No focal deficits, tone is normal in all 4 extremities. PSYCHIATRIC: Alert and oriented -3. Appropriate affect. Intact judgment and insight. - Labs CBC & Chem 7: 12/22/21 06:51 12/23/21 06:42 Labs: Abnormal Lab Results - Last 24 Hours (Table) 12/23/21 12/23/21 12/24/21 Range/Units 16:32 21:02 06:34 POC Glucose (mg/dL) 227 H 166 H 127 H (75-99) mg/dL 12/24/21 Range/Units 11:53 POC Glucose (mg/dL) 255 H (75-99) mg/dL Assessment and Plan Plan: Assessment: #1. Acute on chronic hypoxic respiratory failure, related to acute exacerbation of CHF with diastolic dysfunction, clinically improving and the patient is being treated with accommodation bronchodilators, noninvasive positive pressure ventilator and gentle diuresis and the patient is being kept in a negative fluid balance. Last chest x-ray from yesterday was still showing evidence of pulm onary edema. #2. 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 Prior history of acute respiratory distress syndrome requiring prolonged intubation and mechanical ventilation and eventual tracheostomy tube insertion with subsequent decannulation #4. History of severe COPD, the baseline FEV1 of 41% of predicted #5. History of hypothyroidism #6. History of diabetes mellitus type 2 #7. History of hypertension #8. Previous COVID-19 infection in September 2021 #9. Chronic kidney disease stage IIIB with a component of an acute kidney injury possibly secondary to diuretics, improving #10. Moderately severe pulmonary hypertension #11. Morbid obesity with BMI of 42 kg/m #12. Acute urinary tract infection related to enterococcus faecalis, currently on daptomycin, initially treated with Levaquin Plan: Continue BiPAP support at bedtime and as needed for increased shortness of breath Encouraged to use the BiPAP even during the day as needed BiPAP settings 09/12 on FiO2 is currently at 60% FiO2 can be weaned down to keep O2 sats at or above 90% , currently on 8 L of O2 by nasal cannula Follow-up chest x-rays will be obtained for tomorrow Continue current medical treatment continue current dose of Lasix , decide to go with a low dose diuretics 40 mg daily and the patient's renal function and fluid balance will be monitored Encourage deep breathing and coughing Encouraged patient to sit up in the chair Encourage oral intake She still quite weak generally , Although the motor weakness essentially improving Continue current medical treatment
--- NOTE | 2021-12-24 16:01 | P.PN ---
Subjective HISTORY OF PRESENTING ILLNESS This is a pleasant 71-year-old female past medical history significant for COPD requiring supplemental home oxygen diabetes hypertension hypothyroidism and morbid obesity. 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 We have been asked to see in consultation for acute congestive heart failure. Patient was brought into the ER by her daughter for increased shortness of breath. Patient had Covid in September 2021 and since that time she has been requiring increased supplemental oxygen. She reports she has moderate exertional dyspnea. Patient started on IV Lasix in the emergency department. Echocardiogram revealed normal ejection fraction 5560 percent, mild aortic stenosis, moderate to severe pulmonary hypertension 12/24 seen and examined. Patient denies any chest pain or pressure. Her daughter admits that today is somewhat of a better day and her breathing is somewhat better. She is receiving breathing treatments as well as Lasix with good urine output. Admits her lower extremity edema is improving however still has some central edema Vitals reviewed GENERAL: In no acute distress. NECK: Supple without JVD or thyromegaly. LUNGS: Breath sounds diminished to auscultation bilaterally. Respiration equal and unlabored. No wheezes, rales or rhonchi. HEART: Regular rate and rhythm without murmurs, rubs or gallops. S1 and S2 heard. EXTREMITIES: 1+ bilateral lower extremity edema. No clubbing or cyanosis. Peripheral pulses intact. NEURO: Alert and oriented x 3 ASSESSMENT Acute on chronic diastolic heart failure Acute on Chronic kidney disease Aortic stenosis COPD Type 2 diabetes Hypertension Hypothyroidism PLAN Continue diuretics and monitor creatinine closely. Appears she is slowly improving. Continue supportive care. Further recommendations to follow. Still appears to be volume overloaded. Objective - Vital Signs Vital signs: Vital Signs Temp 97.8 F 12/24/21 12:05 Pulse 79 12/24/21 12:05 Resp 18 12/24/21 14:29 BP 144/78 12/24/21 12:05 Pulse Ox 91 L 12/24/21 12:05 Intake & Output 12/23/21 12/24/21 12/24/21 18:59 06:59 18:59 Intake Total 120 240 Output Total 900 275 500 Balance -780 -275 -260 Weight 100 kg Intake: Oral 120 240 Output: Urine 900 275 500 Other: Voiding Method Indwelling Catheter Indwelling Catheter Indwelling Catheter # Bowel Movements 1 - Labs CBC & Chem 7: 12/22/21 06:51 12/23/21 06:42 Labs: Abnormal Lab Results - Last 24 Hours (Table) 12/23/21 12/23/21 12/24/21 Range/Units 16:32 21:02 06:34 POC Glucose (mg/dL) 227 H 166 H 127 H (75-99) mg/dL 12/24/21 Range/Units 11:53 POC Glucose (mg/dL) 255 H (75-99) mg/dL
--- NOTE | 2021-12-24 16:25 | P.PN ---
Subjective Patient is seen for follow-up for acute kidney injury function has been improving. Patient has a French catheter for urine retention. Patient is currently being diuresed. Urine output is good 24 hour output about 1.1 L. Objective - Vital Signs Vital signs: Vital Signs Temp 97.8 F 12/24/21 12:05 Pulse 80 12/24/21 16:01 Resp 18 12/24/21 14:29 BP 144/78 12/24/21 12:05 Pulse Ox 91 L 12/24/21 12:05 Intake & Output 12/23/21 12/24/21 12/24/21 18:59 06:59 18:59 Intake Total 120 240 Output Total 900 275 500 Balance -780 -275 -530 Weight 100 kg Intake: Oral 120 240 Output: Urine 900 275 500 Other: Voiding Method Indwelling Catheter Indwelling Catheter Indwelling Catheter # Bowel Movements 1 - Exam Patient is awake comfortable not in any acute distress. Lungs sounds are heard bilaterally examination of the heart S1 and S2 Abdomen is soft nontender Examination lower extremities shows trace edema bilaterally [place] [employer]OR OF [employer]ICINE exam grossly intact - Labs CBC & Chem 7: 12/22/21 06:51 12/23/21 06:42 Labs: Abnormal Lab Results - Last 24 Hours (Table) 12/23/21 12/23/21 12/24/21 Range/Units 16:32 21:02 06:34 POC Glucose (mg/dL) 227 H 166 H 127 H (75-99) mg/dL 12/24/21 Range/Units 11:53 POC Glucose (mg/dL) 255 H (75-99) mg/dL Assessment and Plan Assessment: 1. Acute kidney injury, ATN secondary to cardiorenal syndrome, nonoliguric currently improving. No evidence of obstruction on ultrasound 2. Chronic kidney disease NKF stage IIIB with baseline creatinine 1.2-1.4 in August 2019 etiology is diabetic kidney disease 3. Acute on chronic diastolic CHF with moderate to severe pulmonary hypertension 4. Acute hypoxic respiratory failure 5. Fluid overload 6. Anemia of chronic disease with iron deficiency receiving IV iron 7. Urine retention currently with French catheter Plan: New with Lasix Repeat labs in a.m. Replace potassium and magnesium
[2021-12-24 16:55] LABS: Glucose,Whole Blood 229 mg/dL (75-99)
[2021-12-24] MEDS: DAPTOmycin 500 MG in SODIUM CHLORIDE 0.9% 50 ML IVPB SCH (17:41)
[2021-12-24 19:51] LABS: Glucose,Whole Blood 171 mg/dL (75-99)
[2021-12-24] MEDS: PRAVASTATIN SODIUM 40 MG TAB PO SCH (20:37)
[2021-12-24] MEDS: SERTRALINE 100 MG TAB PO SCH (20:37)
[2021-12-24] MEDS: MONTELUKAST 10 MG TAB PO SCH (20:37)
[2021-12-25] MEDS: LORazepam 2 MG/ML INJ IV PRN ×2 (00:01→22:39)
[2021-12-25 06:35] LABS: Glucose,Whole Blood 131 mg/dL (75-99)
[2021-12-25] MEDS: LEVOTHYROXINE 88 MCG TAB PO SCH (06:37)
[2021-12-25] MEDS: INSULIN ASPART (NovoLOG) 100 UNIT/ML VIAL SQ SCH ×4 (06:37→21:27)
[2021-12-25] MEDS: hydrALAZINE HCL 50 MG TAB PO SCH ×3 (06:37→21:26)
--- NOTE | 2021-12-25 07:13 | XR ---
EXAMINATION TYPE: XR chest 1V DATE OF EXAM: 12/25/2021 CLINICAL HISTORY: Difficulty breathing and CHF progress study. TECHNIQUE: Single AP portable upright view of the chest is obtained. COMPARISON: Chest x-ray from 2 days earlier and older studies. FINDINGS: Stable mild cardiomegaly with atherosclerotic change aortic knob. Reticular interstitial p rominence bilaterally remains present with left greater than right bibasilar opacities. Osseous struc tures are demineralized. IMPRESSION: Mild cardiomegaly with bilateral diffuse reticulonodular infiltrates and/or edema redemon strated. Persistent left greater than right bibasilar acute infiltrate and/or atelectasis. Persistent small size left greater than right pleural effusions. No significant change from most recent x-ray.
[2021-12-25] MEDS: IPRATROPIUM-ALBUTEROL 3 ML NEB INHALATION SCH ×4 (07:53→20:17)
[2021-12-25] MEDS: SYMBICORT 160-4.5 MCG INHALER INHALATION SCH ×2 (07:54→20:20)
--- NOTE | 2021-12-25 08:50 | P.PN ---
Subjective HISTORY OF PRESENTING ILLNESS This is a pleasant 71-year-old female past medical history significant for COPD requiring supplemental home oxygen diabetes hypertension hypothyroidism and morbid obesity. 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 We have been asked to see in consultation for acute congestive heart failure. Patient was brought into the ER by her daughter for increased shortness of breath. Patient had Covid in September 2021 and since that time she has been requiring increased supplemental oxygen. She reports she has moderate exertional dyspnea. Patient started on IV Lasix in the emergency department. Echocardiogram revealed normal ejection fraction 5560 percent, mild aortic stenosis, moderate to severe pulmonary hypertension 12/24 seen and examined. Patient denies any chest pain or pressure. Her daughter admits that today is somewhat of a better day and her breathing is somewhat better. She is receiving breathing treatments as well as Lasix with good urine output. Admits her lower extremity edema is improving however still has some central edema 12/25 Patient seen and examined. Patient states she slept much better last night on BiPAP. Has continued with the diuretics and has had good urine output. No labs have been drawn and we will obtain some today. Vitals reviewed GENERAL: In no acute distress. NECK: Supple without JVD or thyromegaly. LUNGS: Breath sounds diminished to auscultation bilaterally. Respiration equal and unlabored. No wheezes, rales or rhonchi. HEART: Regular rate and rhythm without murmurs, rubs or gallops. S1 and S2 heard. EXTREMITIES: 1+ bilateral lower extremity edema. No clubbing or cyanosis. Peripheral pulses intact. NEURO: Alert and oriented x 3 ASSESSMENT Acute on chronic diastolic heart failure Acute on Chronic kidney disease Aortic stenosis COPD Type 2 diabetes Hypertension Hypothyroidism PLAN Appears to be improving with diuretics as well as treatment for COPD. Still appears volume overloaded and continue with diuretics. Check blood work from today and monitor creatinine closely. Objective - Vital Signs Vital signs: Vital Signs Temp 98 F 12/25/21 04:10 Pulse 70 12/25/21 08:08 Resp 16 12/25/21 04:10 BP 131/69 12/25/21 04:10 Pulse Ox 99 12/25/21 04:10 Intake & Output 12/24/21 12/25/21 12/25/21 18:59 06:59 18:59 Intake Total 240 Output Total 500 475 Balance -260 -475 Intake: Oral 240 Output: Urine 500 475 Other: Voiding Method Indwelling Catheter Indwelling Catheter - Labs CBC & Chem 7: 12/22/21 06:51 12/23/21 06:42 Labs: Abnormal Lab Results - Last 24 Hours (Table) 12/24/21 12/24/21 12/24/21 Range/Units 11:53 16:53 19:48 POC Glucose (mg/dL) 255 H 229 H 171 H (75-99) mg/dL 12/25/21 Range/Units 06:34 POC Glucose (mg/dL) 131 H (75-99) mg/dL
[2021-12-25] MEDS: amLODIPine 10 MG TAB PO SCH (09:06)
[2021-12-25] MEDS: METOPROLOL TARTRATE 50 MG TAB PO SCH (09:06)
[2021-12-25] MEDS: FUROSEMIDE 10 MG/ML 4 ML VIAL IV SCH (09:06)
[2021-12-25] MEDS: TAMSULOSIN 0.4 MG CAP.ER.24H PO SCH (09:06)
[2021-12-25] MEDS: ERGOCALCIFEROL 1,250 MCG (50,000 IU) CAPSULE PO SCH (09:06)
[2021-12-25] MEDS: busPIRone HCl 5 MG TAB PO SCH ×2 (09:06→21:26)
[2021-12-25] MEDS: THYROID, PORK 30 MG TAB PO SCH (09:06)
[2021-12-25] MEDS: HEPARIN SODIUM,PORCINE/PF 5,000 UNIT/0.5 ML SYRINGE SQ SCH ×2 (09:09→21:26)
--- NOTE | 2021-12-25 10:31 | P.PN ---
Subjective Patient is seen for follow-up for acute kidney injury function has been improving. Patient has a French catheter for urine retention. Patient is currently being diuresed. Urine output is good 24 hour output about 975 ml Objective - Vital Signs Vital signs: Vital Signs Temp 98 F 12/25/21 04:10 Pulse 70 12/25/21 08:08 Resp 16 12/25/21 08:50 BP 131/69 12/25/21 04:10 Pulse Ox 99 12/25/21 04:10 Intake & Output 12/24/21 12/25/21 12/25/21 18:59 06:59 18:59 Intake Total 240 Output Total 500 475 Balance -260 -475 Intake: Oral 240 Output: Urine 500 475 Other: Voiding Method Indwelling Catheter Indwelling Catheter Indwelling Catheter - Exam Patient is awake comfortable not in any acute distress. Lungs sounds are heard bilaterally examination of the heart S1 and S2 Abdomen is soft nontender Examination lower extremities shows trace edema bilaterally [place] [facility] [employer] exam grossly intact - Labs CBC & Chem 7: 12/22/21 06:51 12/23/21 06:42 Labs: Abnormal Lab Results - Last 24 Hours (Table) 12/24/21 12/24/21 12/24/21 Range/Units 11:53 16:53 19:48 POC Glucose (mg/dL) 255 H 229 H 171 H (75-99) mg/dL 12/25/21 Range/Units 06:34 POC Glucose (mg/dL) 131 H (75-99) mg/dL Assessment and Plan Assessment: 1. Acute kidney injury, ATN secondary to cardiorenal syndrome, nonoliguric currently improving. No evidence of obstruction on ultrasound 2. Chronic kidney disease NKF stage IIIB with baseline creatinine 1.2-1.4 in August 2019 etiology is diabetic kidney disease 3. Acute on chronic diastolic CHF with moderate to severe pulmonary hypertension 4. Acute hypoxic respiratory failure 5. Fluid overload 6. Anemia of chronic disease with iron deficiency receiving IV iron 7. Urine retention currently with French catheter Plan: Continue with Lasix Repeat labs in a.m.
[2021-12-25 10:49] LABS: Basophils % (A) 0 %; Eosinophils # (A) 0.1 k/uL (0-0.7); Eosinophils % (A) 1 %; HCT 28.4 % (34.0-46.0); HGB 8.2 gm/dL (11.4-16.0); Hypochromasia Marked; Lymphocytes # (A) 0.4 k/uL (1.0-4.8); Lymphocytes % (A) 7 %; MCH 24.5 pg (25.0-35.0); MCHC 28.9 g/dL (31.0-37.0); MCV 84.7 fL (80.0-100.0); Mean Platelet Volume 10.3; Monocytes # (A) 0.3 k/uL (0-1.0); Monocytes % (A) 5 %; Neutrophils # (A) 4.4 k/uL (1.3-7.7); Neutrophils % (A) 86 %; Platelet Count 112 k/uL (150-450); RBC 3.35 m/uL (3.80-5.40); WBC 5.1 k/uL (3.8-10.6)
[2021-12-25 11:00] LABS: Albumin 3.3 g/dL (3.5-5.0); Calcium 8.3 mg/dL (8.4-10.2); Phosphorus 5.2 mg/dL (2.5-4.5); Potassium 3.8 mmol/L (3.5-5.1)
--- NOTE | 2021-12-25 11:10 | P.PN ---
Subjective Progress Note Date: 12/24/21 Principal diagnosis: Acute on chronic hypoxic respiratory failure, related to acute exacerbation of CHF with diastolic dysfunction 71-year-old female with past medical history of COPD, on home O2, diabetes mellitus type 2, hypertension admitted with shortness of breath, fluid overload, underlying CHF exacerbation and multiple other medical issues.Maintained on nebulized bronchodilators, Levaquin and Lasix IV push.Diuresing well on Lasix IV push, denies increased shortness of breath except positive exertional shortness of breath, denies cough. Decreasing edema. Worsening renal function, creatinine 2.53. Currently maintaining O2 sats in the high 80s to 2 mid 90s on 8 L high flow nasal cannula. Echo reported normal LV function, EF 55-60%, mild aortic stenosis, moderate to severe pulmonary hypertension. 12/24/2021 patient is seen and evaluated in room at bedside; more awake and interactive; no new complaints. Continues to require BiPAP at night The patient is being diuresis with IV Lasix and the patient is currently on 40 mg of IV Lasix every 24 hours. The chest x-ray from yesterday was still showing evidence of CHF and fluid overload and it is anticipated to improve as the patient is being diuresis. Renal function, it's also stable and the patient's creatinine from yesterday was 1.65 with a BUN of 43 and the sodium level is at 135. Cardiology pulmonary service on board and patient is recommended to continue BiPAP support at bedtime and as needed, continue to titrate FiO2 keeping O2 saturation above 90% Chest x-ray is ordered for tomorrow morning; recommendations to follow Objective - Vital Signs Vital signs: Vital Signs Temp 98.0 F 12/24/21 08:35 Pulse 75 12/24/21 08:35 Resp 18 12/24/21 08:43 BP 148/67 12/24/21 08:35 Pulse Ox 94 L 12/24/21 08:43 Intake & Output 12/23/21 12/24/21 12/24/21 18:59 06:59 18:59 Intake Total 120 120 Output Total 900 275 Balance -780 -275 120 Weight 100 kg Intake: Oral 120 120 Output: Urine 900 275 Other: Voiding Method Indwelling Catheter Indwelling Catheter # Bowel Movements 1 - Exam General: Alert and oriented 3,alert ,Sitting up in bed, NAD. Obese. Vitals reviewed Eyes: PERRL, EOMI, conjunctiva normal HENT: normocephalic, mucus membranes moist Neck: supple, no JVD Lungs: Diminished air entry. CV: Regular rate and rhythm, systolic murmur. Trace edema. Abdomen: soft, nondistended, no organomegaly, +bs Skin: warm and dry, no rash. Neuro: Cranial nerves II through XII grossly intact. No focal deficits. - Labs CBC & Chem 7: 12/25/21 10:29 12/25/21 10:29 Labs: Abnormal Lab Results - Last 24 Hours (Table) 12/23/21 12/23/21 12/23/21 Range/Units 11:40 16:32 21:02 POC Glucose (mg/dL) 153 H 227 H 166 H (75-99) mg/dL 12/24/21 Range/Units 06:34 POC Glucose (mg/dL) 127 H (75-99) mg/dL Assessment and Plan Assessment: Acute on chronic CHF exacerbation, diastolic dysfunction Moderate to severe pulmonary hypertension, RVSP 55.45 Acute UTI with enterococcus faecalis Recent covid infection infection 09/27 Acute on chronic hypoxic, hypercapnic respiratory failure secondary to all the above, prn BiPAP COPD Acute on Chronic kidney disease, stage IIIB, secondary to ATN related to cardiorenal syndrome Anemia of chronic kidney disease, iron deficient Urinary retention Hypertension Aortic Stenosis,mild Hypothyroidism Diabetes mellitus type 2 Morbid obesity, BMI 42.3 plan: Continue on current medication regime ,monitoring and symptomatic treatment. Bipap prn. Maintain daptomycin, diuretics. Aggressive pulmonary toileting, nebulized bronchodilators. Prognosis guarded given multiple complex medical issues- discussed with daughter this morning at bedside via phone. Discharge planning soon pending pulmonary clearance.
[2021-12-25 11:40] LABS: Glucose,Whole Blood 254 mg/dL (75-99)
--- NOTE | 2021-12-25 15:13 | P.PN ---
Subjective Progress Note Date: 12/25/21 On 12/21/2021 patient seen in follow-up on selective care unit, she is resting in bed today, her daughter is at the bedside, and she states the patient is noted to be a bit more confused today, she is moaning and groaning but at the same time she denies any pain. She is awake, she is answering questions, she is oriented 3. She remains on 8 L of oxygen pulse ox is 97%, lung sounds are diminished, with minimal crackles at the bases, she is maintaining negative fluid balance and she is in -1.5 L in the last 24 hours, she received a dose of IV Lasix yesterday and today per nephrology. She is being treated for a urinary tract infection related to enterococcus faecalis, and patient was initially on Levaquin and subsequently sensitivity revealed resistance to Levaquin. Patient is currently on daptomycin per primary care service. She's been afebrile overnight. Hemodynamically she has been stable. Overall fluid volume status is improving, and her last chest x-ray was showing improved appearance of interstitial edema. Today's labs have been reviewed, sodium is 137, potassium is 4.2, chloride is 95, CO2 is 36, BUN is 49, creatinine is 1.99, showing an improvement in the renal function trend. CBC is still pending right now. On 12/22/2021 patient is seen in follow-up on selective care unit. Patient is awake and alert, oriented 3, she is currently on 8 L of oxygen pulse ox is 88- 89%. Clinically she feels short of breath today, although appears to be in no acute distress. We discussed possibility of BiPAP intermittently for increased shortness of breath and hypoxia, and patient would like to try it at this time. She was placed on BiPAP with pressures of 12 and 6 and FiO2 100%, she is getting good tidal volumes of around 700, minute ventilation is 15 L/m. Her O2 saturations on those above-mentioned settings were 99%, she is tolerating BiPAP support quite well. Seems to be rather comfortable. FiO2 has been dropped to 60%. Patient was started on Lasix 40 mg daily, she is in -2.3 liters negative net fluid balance over the last 24 hours. Lower extremity edema is very m inimal. Labs have been reviewed, white blood cell count is 5.3, hemoglobin is 8.6, platelet count is 114, sodium is 136, potassium is 3.8, chloride is 95, CO2 is 37, BUN is 46, creatinine is 1.79, renal profile is actually improving. Patient continues on daptomycin for enterococcus faecalis in her urine culture. Chest x-ray today showing persistent reticulonodular densities throughout both lung doran with increasing right lower lobe density which may reflect focal consolidation and atelectasis and/or developing effusion. On 12/23/2021 patient seen in follow-up on selective care unit. She is up in the chair today, she wore the BiPAP support most of the yesterday, and most of the night, she is currently off BiPAP, she is on high flow oxygen at 8 L, her pulse ox is 92-94%, breathing much more comfortably. Looks more comfortable on today's exam as well. She remains on daily dose of Lasix, she is a -535 ML net fluid balance over the last 24 hours. Her renal function is improving on today's labs. Vital signs have been stable. She remains on inhaled bronchodilators. Follow-up chest x-rays pending. Her appetite is improving, today's labs have been reviewed, sodium is 135, potassium 4.0, BUN is 43 creatinine is down to 1.65. 12/24/2021, the patient is much more awake and interactive and communicating. The patient has no new complaints. The patient is being diuresis with IV Lasix and the patient is currently on 40 mg of IV Lasix every 24 hours. Denies having any chest pain. She is comfortable in using her BiPAP also overnight. The patient remains in a negative fluid balance. The chest x-ray from yesterday was still showing evidence of CHF and fluid overload and it is anticipated to improve as the patient is being diuresis. As far as the renal function, it's also stable and the patient's creatinine from yesterday was 1.65 with a BUN of 43 and the sodium level is at 135. Awaiting follow-up labs and electrolytes from today. Meanwhile, the blood sugars at 255. While off the BiPAP, the patient is on 8 L of O2 by nasal cannula. Breathing is nonlabored. She is hemodynamically stable. She is afebrile. 12/25/2021, the patient is doing well. Using the BiPAP overnight. Remains on IV Lasix and the patient is on Lasix 40 mg IV every 24 hours. No new c omplaints. Her fluid balance has been -1055 mL over the past 24 hours she is on 6 L of O2 by nasal cannula. There is a rise in the creatinine and is currently up to 2.3 with a BUN of 44. Sodium level is 136. The patient remains on daptomycin regarding enterococcal UTI. No other complaints otherwise for now. No fever. No chills. Outpatient medication of been ordered resume. Utilizing BiPAP overnight. Chest x-ray still showing stable fluid overload/CHF. This is despite her diuresis. There may be some mild interval improvement of the chest x-ray findings on today's evaluation. Objective - Vital Signs Vital signs: Vital Signs Temp 97.8 F 12/25/21 11:51 Pulse 87 12/25/21 11:51 Resp 18 12/25/21 14:00 BP 150/70 12/25/21 11:51 Pulse Ox 90 L 12/25/21 11:51 Intake & Output 12/24/21 12/25/21 12/25/21 18:59 06:59 18:59 Intake Total 240 Output Total 500 475 Balance -260 -475 Intake: Oral 240 Output: Urine 500 475 Other: Voiding Method Indwelling Catheter Indwelling Catheter Indwelling Catheter - Exam GENERAL EXAM: Somnolent, but easily arousable, 71-year-old white female, resting in bed, currently on 8 L of oxygen pulse ox is 97% does not appear to be in any acute distress comfortable in no apparent distress. HEAD: Normocephalic/atraumatic. EYES: Normal reaction of pupils, equal size. Conjunctiva pink, sclera white. NOSE: Clear with pink turbinates. THROAT: No erythema or exudates. NECK: No masses, no JVD, no thyroid enlargement, no adenopathy. CHEST: No chest wall deformity. Symmetrical expansion. LUNGS: Diminished air entry with no crackles, wheeze, rhonchi or dullness. CVS: Regular rate and rhythm, normal S1 and S2, no gallops, no murmurs, no rubs ABDOMEN: Soft, nontender. No hepatosplenomegaly, normal bowel sounds, no guarding or rigidity. EXTREMITIES: No clubbing, no edema, no cyanosis, 2+ pulses and upper and lower extremities. MUSCULOSKELETAL: Muscle strength and tone normal. SPINE: No scoliosis or deformity SKIN: No rashes CENTRAL NERVOUS SYSTEM: Alert and oriented -3. No focal deficits, tone is normal in all 4 extremities. PSYCHIATRIC: Alert and oriented -3. Appropriate affect. Intact judgment and insight. - Labs CBC & Chem 7: 12/25/21 10:29 12/25/21 10:29 Labs: Abnormal Lab Results - Last 24 Hours (Table) 12/24/21 12/24/21 12/25/21 Range/Units 16:53 19:48 06:34 RBC (3.80-5.40) m/uL Hgb (11.4-16.0) gm/dL Hct (34.0-46.0) % MCH (25.0-35.0) pg MCHC (31.0-37.0) g/dL RDW (11.5-15.5) % Plt Count (150-450) k/uL Lymphocytes # (1.0-4.8) k/uL Sodium (137-145) mmol/L Chloride (98-107) mmol/L Carbon Dioxide (22-30) mmol/L BUN (7-17) mg/dL Creatinine (0.52-1.04) mg/dL Glucose (74-99) mg/dL POC Glucose (mg/dL) 229 H 171 H 131 H (75-99) mg/dL Calcium (8.4-10.2) mg/dL Phosphorus (2.5-4.5) mg/dL Albumin (3.5-5.0) g/dL 12/25/21 12/25/21 12/25/21 Range/Units 10:29 10:29 11:34 RBC 3.35 L (3.80-5.40) m/uL Hgb 8.2 L (11.4-16.0) gm/dL Hct 28.4 L (34.0-46.0) % MCH 24.5 L (25.0-35.0) pg MCHC 28.9 L (31.0-37.0) g/dL RDW 16.0 H (11.5-15.5) % Plt Count 112 L (150-450) k/uL Lymphocytes # 0.4 L (1.0-4.8) k/uL Sodium 136 L (137-145) mmol/L Chloride 97 L (98-107) mmol/L Carbon Dioxide 36 H (22-30) mmol/L BUN 44 H (7-17) mg/dL Creatinine 2.30 H (0.52-1.04) mg/dL Glucose 190 H (74-99) mg/dL POC Glucose (mg/dL) 254 H (75-99) mg/dL Calcium 8.3 L (8.4-10.2) mg/dL Phosphorus 5.2 H (2.5-4.5) mg/dL Albumin 3.3 L (3.5-5.0) g/dL Assessment and Plan Plan: Assessment: #1. Acute on chronic hypoxic respiratory failure, related to acute exacerbation of CHF with diastolic dysfunction, clinically improving and the patient is being treated with accommodation bronchodilators, noninvasive positive pressure ventilator and gentle diuresis and the patient is being kept in a negative fluid balance. Last chest x-ray from yesterday was still showing evidence of pulmonary edema. #2. 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 Prior history of acute respiratory distress syndrome requiring prolonged intubation and mechanical ventilation and eventual tracheostomy tube insertion with subsequent decannulation #4. History of severe COPD, the baseline FEV1 of 41% of predicted #5. History of hypothyroidism #6. History of diabetes mellitus type 2 #7. History of hypertension #8. Previous COVID-19 infection in September 2021 #9. Chronic kidney disease stage IIIB with a component of an acute kidney in jury possibly secondary to diuretics, improving #10. Moderately severe pulmonary hypertension #11. Morbid obesity with BMI of 42 kg/m #12. Acute urinary tract infection related to enterococcus faecalis, currently on daptomycin, initially treated with Levaquin Plan: Continued IV Lasix with careful attention to the patient's renal function and the creatinine. Monitor weight Monitor fluid balance Continue BiPAP support at bedtime and as needed for increased shortness of breath Encouraged to use the BiPAP even during the day as needed BiPAP settings 09/12 on FiO2 is currently at 60% FiO2 can be weaned down to keep O2 sats at or above 90% , currently on 6 L of O2 by nasal cannula Follow-up chest x-rays was noted from today and there is still a component of CHF/fluid overload She still quite weak generally , Although the motor weakness essentially improving Continue current medical treatment
[2021-12-25 16:35] LABS: Glucose,Whole Blood 151 mg/dL (75-99)
--- NOTE | 2021-12-25 18:33 | P.PN ---
Subjective Progress Note Date: 12/25/21 Principal diagnosis: Acute on chronic hypoxic respiratory failure, related to acute exacerbation of CHF with diastolic dysfunction 71-year-old female with past medical history of COPD, on home O2, diabetes mellitus type 2, hypertension admitted with shortness of breath, fluid overload, underlying CHF exacerbation and multiple other medical issues.Maintained on nebulized bronchodilators, Levaquin and Lasix IV push.Diuresing well on Lasix IV push, denies increased shortness of breath except positive exertional shortness of breath, denies cough. Decreasing edema. Worsening renal function, creatinine 2.53. Currently maintaining O2 sats in the high 80s to 2 mid 90s on 8 L high flow nasal cannula. Echo reported normal LV function, EF 55-60%, mild aortic stenosis, moderate to severe pulmonary hypertension. 12/24/2021 patient is seen and evaluated in room at bedside; more awake and interactive; no new complaints. Continues to require BiPAP at night The patient is being diuresis with IV Lasix and the patient is currently on 40 mg of IV Lasix every 24 hours. The chest x-ray from yesterday was still showing evidence of CHF and fluid overload and it is anticipated to improve as the patient is being diuresis. Renal function, it's also stable and the patient's creatinine from yesterday was 1.65 with a BUN of 43 and the sodium level is at 135. Cardiology pulmonary service on board and patient is recommended to continue BiPAP support at bedtime and as needed, continue to titrate FiO2 keeping O2 saturation above 90% Chest x-ray is ordered for tomorrow morning; recommendations to follow 12/25/2021 Patient is seen and evaluated in room at bedside. Using the BiPAP overnight. Vital signs are reviewed and remained stable with temperature of 97.8, pulse 87, respiration 18 and blood pressure 150/70 with a pulse ox of 90% on 6 L Remains on IV Lasix and the patient is on Lasix 40 mg IV every 24 hours. No new complaints. Her fluid balance has been -1055 mL over the past 24 hours she is on 6 L of O2 by nasal cannula. There is a rise in the creatinine and is currently up to 2.3 with a BUN of 44. Sodium level is 136. The patient remains on daptomycin regarding enterococcal UTI. No other complaints otherwise for now. No fever. No chills. Outpatient medication of been ordered resume. Utilizing BiPAP overnight. Chest x-ray still showing stable fluid overload/CHF. This is despite her diuresis. There may be some mild interval improvement of the chest x-ray findings on today's evaluation. We will plan to continue with IV Lasix with close monitoring of renal function and fluid balance; continue to wean FiO2 down keeping O2 saturation greater than 90% Objective - Vital Signs Vital signs: Vital Signs Temp 98 F 12/25/21 04:10 Pulse 70 12/25/21 08:08 Resp 16 12/25/21 08:50 BP 131/69 12/25/21 04:10 Pulse Ox 99 12/25/21 04:10 Intake & Output 12/24/21 12/25/21 12/25/21 18:59 06:59 18:59 Intake Total 240 Output Total 500 475 Balance -260 -475 Intake: Oral 240 Output: Urine 500 475 Other: Voiding Method Indwelling Catheter Indwelling Catheter Indwelling Catheter - Exam General: Alert and oriented 3,alert ,Sitting up in bed, NAD. Obese. Vitals reviewed Eyes: PERRL, EOMI, conjunctiva normal HENT: normocephalic, mucus membranes moist Neck: supple, no JVD Lungs: Diminished air entry. CV: Regular rate and rhythm, systolic murmur. Trace edema. Abdomen: soft, nondistended, no organomegaly, +bs Skin: warm and dry, no rash. Neuro: Cranial nerves II through XII grossly intact. No focal deficits. - Labs CBC & Chem 7: 12/25/21 10:29 12/25/21 10:29 Labs: Abnormal Lab Results - Last 24 Hours (Table) 12/24/21 12/24/21 12/24/21 Range/Units 11:53 16:53 19:48 RBC (3.80-5.40) m/uL Hgb (11.4-16.0) gm/dL Hct (34.0-46.0) % MCH (25.0-35.0) pg MCHC (31.0-37.0) g/dL RDW (11.5-15.5) % Plt Count (150-450) k/uL Lymphocytes # (1.0-4.8) k/uL Sodium (137-145) mmol/L Chloride (98-107) mmol/L Carbon Dioxide (22-30) mmol/L BUN (7-17) mg/dL Creatinine (0.52-1.04) mg/dL Glucose (74-99) mg/dL POC Glucose (mg/dL) 255 H 229 H 171 H (75-99) mg/dL Calcium (8.4-10.2) mg/dL Phosphorus (2.5-4.5) mg/dL Albumin (3.5-5.0) g/dL 12/25/21 12/25/21 12/25/21 Range/Units 06:34 10:29 10:29 RBC 3.35 L (3.80-5.40) m/uL Hgb 8.2 L (11.4-16.0) gm/dL Hct 28.4 L (34.0-46.0) % MCH 24.5 L (25.0-35.0) pg MCHC 28.9 L (31.0-37.0) g/dL RDW 16.0 H (11.5-15.5) % Plt Count 112 L (150-450) k/uL Lymphocytes # 0.4 L (1.0-4.8) k/uL Sodium 136 L (137-145) mmol/L Chloride 97 L (98-107) mmol/L Carbon Dioxide 36 H (22-30) mmol/L BUN 44 H (7-17) mg/dL Creatinine 2.30 H (0.52-1.04) mg/dL Glucose 190 H (74-99) mg/dL POC Glucose (mg/dL) 131 H (75-99) mg/dL Calcium 8.3 L (8.4-10.2) mg/dL Phosphorus 5.2 H (2.5-4.5) mg/dL Albumin 3.3 L (3.5-5.0) g/dL Assessment and Plan Assessment: Acute on chronic CHF exacerbation, diastolic dysfunction Moderate to severe pulmonary hypertension, RVSP 55.45 Acute UTI with enterococcus faecalis Recent covid infection infection 09/27 Acute on chronic hypoxic, hypercapnic respiratory failure secondary to all the above, prn BiPAP COPD Acute on Chronic kidney disease, stage IIIB, secondary to ATN related to cardiorenal syndrome Anemia of chronic kidney disease, iron deficient Urinary retention Hypertension Aortic Stenosis,mild Hypothyroidism Diabetes mellitus type 2 Morbid obesity, BMI 42.3 plan: Continue on current medication regime ,monitoring and symptomatic treatment. Bipap prn. Maintain daptomycin, diuretics. Aggressive pulmonary toileting, nebulized bronchodilators. Prognosis guarded given multiple complex medical issues- discussed with daughter this morning at bedside via phone. Discharge planning soon pending pulmonary clearance.
[2021-12-25 20:58] LABS: Glucose,Whole Blood 251 mg/dL (75-99)
[2021-12-25] MEDS: MONTELUKAST 10 MG TAB PO SCH (21:26)
[2021-12-25] MEDS: PRAVASTATIN SODIUM 40 MG TAB PO SCH (21:26)
[2021-12-25] MEDS: SERTRALINE 100 MG TAB PO SCH (21:26)
[2021-12-26] MEDS: hydrALAZINE HCL 50 MG TAB PO SCH ×3 (06:26→21:00)
[2021-12-26] MEDS: LEVOTHYROXINE 88 MCG TAB PO SCH (06:27)
[2021-12-26] MEDS: INSULIN ASPART (NovoLOG) 100 UNIT/ML VIAL SQ SCH ×4 (06:27→21:00)
[2021-12-26] MEDS: THYROID, PORK 30 MG TAB PO SCH (06:27)
[2021-12-26 06:31] LABS: Glucose,Whole Blood 140 mg/dL (75-99)
[2021-12-26] MEDS: IPRATROPIUM-ALBUTEROL 3 ML NEB INHALATION SCH ×4 (08:55→21:45)
[2021-12-26] MEDS: SYMBICORT 160-4.5 MCG INHALER INHALATION SCH ×2 (08:55→21:45)
[2021-12-26] MEDS: amLODIPine 10 MG TAB PO SCH (10:19)
[2021-12-26] MEDS: FUROSEMIDE 10 MG/ML 4 ML VIAL IV SCH (10:19)
[2021-12-26] MEDS: busPIRone HCl 5 MG TAB PO SCH ×2 (10:19→21:00)
[2021-12-26] MEDS: METOPROLOL TARTRATE 50 MG TAB PO SCH (10:19)
[2021-12-26] MEDS: TAMSULOSIN 0.4 MG CAP.ER.24H PO SCH (10:19)
[2021-12-26] MEDS: HEPARIN SODIUM,PORCINE/PF 5,000 UNIT/0.5 ML SYRINGE SQ SCH ×2 (10:19→21:00)
--- NOTE | 2021-12-26 10:49 | P.PN ---
Subjective Patient is seen for follow-up for acute kidney injury function had been improving. However today serum creatinine is increased to 2.3 mg/dL. Patient has a French catheter for urine retention. Patient is currently being diuresed. Urine output is good 24 hour output about 650 ml, ? Accurate Objective - Vital Signs Vital signs: Vital Signs Temp 98.3 F 12/26/21 10:15 Pulse 74 12/26/21 10:15 Resp 18 12/26/21 10:15 BP 125/62 12/26/21 10:15 Pulse Ox 94 L 12/26/21 10:15 Intake & Output 12/25/21 12/26/21 12/26/21 18:59 06:59 18:59 Intake Total 0 Output Total 650 0 Balance -650 0 0 Intake: Oral 0 Output: Urine 650 Stool 0 Other: Voiding Method Indwelling Catheter Indwelling Catheter Indwelling Catheter # Bowel Movements 0 - Exam Patient is awake comfortable not in any acute distress. Lungs sounds are heard bilaterally examination of the heart S1 and S2 Abdomen is soft nontender Examination lower extremities shows trace edema bilaterally [employer] exam grossly intact - Labs CBC & Chem 7: 12/25/21 10:29 12/25/21 10:29 Labs: Abnormal Lab Results - Last 24 Hours (Table) 12/25/21 12/25/21 12/25/21 Range/Units 10:29 10:29 11:34 RBC 3.35 L (3.80-5.40) m/uL Hgb 8.2 L (11.4-16.0) gm/dL Hct 28.4 L (34.0-46.0) % MCH 24.5 L (25.0-35.0) pg MCHC 28.9 L (31.0-37.0) g/dL RDW 16.0 H (11.5-15.5) % Plt Count 112 L (150-450) k/uL Lymphocytes # 0.4 L (1.0-4.8) k/uL Sodium 136 L (137-145) mmol/L Chloride 97 L (98-107) mmol/L Carbon Dioxide 36 H (22-30) mmol/L BUN 44 H (7-17) mg/dL Creatinine 2.30 H (0.52-1.04) mg/dL Glucose 190 H (74-99) mg/dL POC Glucose (mg/dL) 254 H (75-99) mg/dL Calcium 8.3 L (8.4-10.2) mg/dL Phosphorus 5.2 H (2.5-4.5) mg/dL Albumin 3.3 L (3.5-5.0) g/dL 12/25/21 12/25/21 12/26/21 Range/Units 16:33 20:36 06:14 RBC (3.80-5.40) m/uL Hgb (11.4-16.0) gm/dL Hct (34.0-46.0) % MCH (25.0-35.0) pg MCHC (31.0-37.0) g/dL RDW (11.5-15.5) % Plt Count (150-450) k/uL Lymphocytes # (1.0-4.8) k/uL Sodium (137-145) mmol/L Chloride (98-107) mmol/L Carbon Dioxide (22-30) mmol/L BUN (7-17) mg/dL Creatinine (0.52-1.04) mg/dL Glucose (74-99) mg/dL POC Glucose (mg/dL) 151 H 251 H 140 H (75-99) mg/dL Calcium (8.4-10.2) mg/dL Phosphorus (2.5-4.5) mg/dL Albumin (3.5-5.0) g/dL Assessment and Plan Assessment: 1. Acute kidney injury, ATN secondary to cardiorenal syndrome, nonoliguric, was improving. Creatinine is higher today. I will change Lasix to by mouth. Check accurate I's and O's No evidence of obstruction on ultrasound 2. Chronic kidney disease NKF stage IIIB with baseline creatinine 1.2-1.4 in August 2019 etiology is diabetic kidney disease 3. Acute on chronic diastolic CHF with moderate to severe pulmonary hypertension 4. Acute hypoxic respiratory failure 5. Fluid overload 6. Anemia of chronic disease with iron deficiency receiving IV iron 7. Urine retention currently with French catheter Plan: Change Lasix to oral Repeat labs in a.m. Accurate I's and O's
[2021-12-26 11:41] LABS: Glucose,Whole Blood 150 mg/dL (75-99)
[2021-12-26 11:42] LABS: Calcium 8.4 mg/dL (8.4-10.2); Potassium 4.1 mmol/L (3.5-5.1)
--- NOTE | 2021-12-26 14:29 | P.PN ---
Subjective Progress Note Date: 12/26/21 HISTORY OF PRESENT ILLNESS: This is a pleasant 71-year-old female past medical history significant for COPD requiring supplemental home oxygen diabetes hypertension hypothyroidism and morbid obesity. 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 We have been asked to see in consultation for acute congestive heart failure. Patient was brought into the ER by her daughter for increased shortness of breath. Patient had Covid in September 2021 and since that time she has been requiring increased supplemental oxygen. She reports she has moderate exertional dyspnea. Patient started on IV Lasix in the emergency department. Echocardiogram revealed normal ejection fraction 5560 percent, mild aortic stenosis, moderate to severe pulmonary hypertension 12/24 seen and examined. Patient denies any chest pain or pressure. Her daughter admits that today is somewhat of a better day and her breathing is somewhat better. She is receiving breathing treatments as well as Lasix with good urine output. Admits her lower extremity edema is improving however still has some central edema 12/25 Patient seen and examined. Patient states she slept much better last night on BiPAP. Has continued with the diuretics and has had good urine output. No labs have been drawn and we will obtain some today. 12/26/2021 Patient examined this morning at the bedside. Patient denies chest pain or pressure. She currently denies SOB. She remains on 8L NC. Creatinine today 2.45. Vital signs are stable. PHYSICAL EXAM: VITAL SIGNS: Reviewed. GENERAL: Well-developed in no acute distress. NECK: Supple. No JVD or thyromegaly LUNGS: Respirations even and unlabored. Lungs essentially clear to auscultation bilaterally. HEART: Regular rate and rhythm. S1 and S2 heard. EXTREMITIES: Normal range of motion. No clubbing or cyanosis. Peripheral pulses intact. Trace lower extremity edema ASSESSMENT: Acute on chronic diastolic heart failure Acute on Chronic kidney disease Aortic stenosis COPD with home oxygen use Type 2 diabetes Hypertension Hypothyroidism PLAN: Continue current cardiac medications Discontinue IV lasix. Begin oral lasix starting tomorrow Monitor kidney function Further recommendations pending patient course Nurse practitioner note has been reviewed by physician. Signing provider agrees with the documented findings, assessment, and plan of care. Objective - Vital Signs Vital signs: Vital Signs Temp 98.2 F 12/26/21 11:54 Pulse 72 12/26/21 12:10 Resp 16 12/26/21 11:54 BP 134/72 12/26/21 11:54 Pulse Ox 95 12/26/21 11:54 Intake & Output 12/25/21 12/26/21 12/26/21 18:59 06:59 18:59 Intake Total 120 Output Total 650 0 Balance -650 0 120 Intake: Oral 120 Output: Urine 650 Stool 0 Other: Voiding Method Indwelling Catheter Indwelling Catheter Indwelling Catheter # Bowel Movements 0 - Labs CBC & Chem 7: 12/25/21 10:29 12/26/21 11:05 Labs: Abnormal Lab Results - Last 24 Hours (Table) 12/25/21 12/25/21 12/26/21 Range/Units 16:33 20:36 06:14 Sodium (137-145) mmol/L Chloride (98-107) mmol/L Carbon Dioxide (22-30) mmol/L BUN (7-17) mg/dL Creatinine (0.52-1.04) mg/dL Glucose (74-99) mg/dL POC Glucose (mg/dL) 151 H 251 H 140 H (75-99) mg/dL 12/26/21 12/26/21 Range/Units 11:05 11:40 Sodium 136 L (137-145) mmol/L Chloride 97 L (98-107) mmol/L Carbon Dioxide 35 H (22-30) mmol/L BUN 50 H (7-17) mg/dL Creatinine 2.45 H (0.52-1.04) mg/dL Glucose 144 H (74-99) mg/dL POC Glucose (mg/dL) 150 H (75-99) mg/dL
--- NOTE | 2021-12-26 15:47 | P.PN ---
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 Using the BiPAP overnight. Remains on IV Lasix and the patient is on Lasix 40 mg IV every 24 hours. No new complaints. Her fluid balance has been -1055 mL over the past 24 hours she is on 6 L of O2 by nasal cannula. There is a rise in the creatinine and is currently up to 2.3 with a BUN of 44. Sodium level is 136. The patient remains on daptomycin regarding enterococcal UTI. No other complaints otherwise for now. No fever. No chills. Outpatient medication of been ordered resume. Utilizing BiPAP overnight. Chest x-ray still showing stable fluid overload/CHF. This is despite her diuresis. There may be some mild interval improvement of the chest x-ray findings on today's evaluation. Reevaluated today on 12/26/21, patient remains on 8 L nasal cannula, feeling better, breathing easier, remains in a negative fluid balance, receiving diuretics. Being followed by nephrology for worsening renal status. Patient is also receiving daptomycin for her enterococcal urinary tract infection. No fever no chills, she is on BiPAP at night. Chest x-ray to show evidence of interstitial edema in spite of diuresis. Electrolytes are normal bicarb is 35 BUN is 50 creatinine 2.45. WBC count is 5.1 hemoglobin is 8.2. Objective - Vital Signs Vital signs: Vital Signs Temp 98.2 F 12/26/21 11:54 Pulse 72 12/26/21 12:10 Resp 16 12/26/21 11:54 BP 134/72 12/26/21 11:54 Pulse Ox 95 12/26/21 11:54 Intake & Output 12/25/21 12/26/21 12/26/21 18:59 06:59 18:59 Intake Total 120 Output Total 650 0 400 Balance -650 0 -280 Intake: Oral 120 Output: Urine 650 400 Stool 0 Other: Voiding Method Indwelling Catheter Indwelling Catheter Indwelling Catheter # Bowel Movements 0 - Exam Physical Exam: Revealed a 71-year-old female in no distress, however she is on 8 L high flow nasal cannula Head: Atraumatic, normocephalic. HEENT obese short neck. [No neck masses.] [No thyromegaly.] [No JVD.] PERRLA, EOMI, nonicteric. Chest: [Fine crackles persist at the bases bilaterally.] Symmetrical chest expansion. Cardiac Exam: [Normal S1 and S2, no S3 gallop, no murmur.] Abdomen: [Soft, nontender, no megaly, no rebound, no guarding, normal bowel sounds.] Extremities: [No clubbing, no edema, no cyanosis.] Neurological Exam: [No focal neurologic deficit.] Alert oriented 3. Psychiatric: Normal mood affect and normal mental status exam. Musculoskeletal normal range of motion no deformities. Skin: No rashes. - Labs CBC & Chem 7: 12/25/21 10:29 12/26/21 11:05 Labs: Abnormal Lab Results - Last 24 Hours (Table) 12/25/21 12/25/21 12/26/21 Range/Units 16:33 20:36 06:14 Sodium (137-145) mmol/L Chloride (98-107) mmol/L Carbon Dioxide (22-30) mmol/L BUN (7-17) mg/dL Creatinine (0.52-1.04) mg/dL Glucose (74-99) mg/dL POC Glucose (mg/dL) 151 H 251 H 140 H (75-99) mg/dL 12/26/21 12/26/21 Range/Units 11:05 11:40 Sodium 136 L (137-145) mmol/L Chloride 97 L (98-107) mmol/L Carbon Dioxide 35 H (22-30) mmol/L BUN 50 H (7-17) mg/dL Creatinine 2.45 H (0.52-1.04) mg/dL Glucose 144 H (74-99) mg/dL POC Glucose (mg/dL) 150 H (75-99) mg/dL Assessment and Plan Assessment: Impression: Acute on chronic hypoxic respiratory failure multifactorial mostly secondary to acute exacerbation of diastolic congestive heart failure and history of 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 History of severe underlying COPD, FEV1 of 41%. History of hypothyroidism Type 2 diabetes Moderate severe pulmonary hypertension Morbid obesity BMI of 42 Acute enterococcal faecalis urinary tract infection on daptomycin. Recommendation: Continue diuretics and continue to monitor renal profile being followed by nephrology Continue BiPAP as needed Continue oxygen and titrate accordingly Continue daptomycin We'll continue to follow. Prognosis is relatively guarded. Time with Patient: Less than 30
[2021-12-26 16:38] LABS: Glucose,Whole Blood 173 mg/dL (75-99)
--- NOTE | 2021-12-26 16:42 | P.PN ---
Subjective Progress Note Date: 12/26/21 This is a 71-year-old female with past medical history of COPD, on home O2, diabetes mellitus type 2, hypertension admitted with shortness of breath, fluid overload, underlying CHF exacerbation and multiple other medical issues.Maintained on nebulized bronchodilators, Levaquin and Lasix IV push.Diuresing well on Lasix IV push, denies increased shortness of breath except positive exertional shortness of breath, denies cough. Decreasing edema. Worsening renal function, creatinine 2.53. Currently maintaining O2 sats in the high 80s to 2 mid 90s on 8 L high flow nasal cannula. Echo reported normal LV function, EF 55-60%, mild aortic stenosis, moderate to severe pulmonary hypertension. Afebrile. 12/20/2021 tired this morning, unable to sleep well last night secondary to chronic back pain, received tramadol. Mild confusion this morning. Incentive spirometer up to 500. Patient back up to 10 L high flow nasal cannula, maintaining O2 sats in the low 90s. Staff reports patient is a 3 person assist to and from bedside commode, desats with exertion down to 82%. Diuretics discontinued yesterday, renal function improving, creatinine down to 2.25. Chest x-ray reporting ongoing CHF and mild interstitial pulmonary edema superimposed on COPD, continue spot a moderate left pleural effusion with adjacent atelectasis and/or consolidation. Received a dose Lasix IV push. Afebrile, normal WBC. 12/21/2021 last night family believed patient to be more lethargic, ABGs drawn, CO2 60, received a dose of Diamox, CO2 this morning decreased to 36. Continues on 8 L high flow nasal cannula maintaining O2 sats of 97 and 98%. Yesterday antibiotics adjusted to daptomycin as urine culture reported enterococcus faecalis, resistant to quinolones, in a patient with penicillin ALLERGIES, with a elevated creatinine.afebrile renal function improving, BUN 49, creatinine 1.99. Required French catheter for urinary retention .Flomax added to med.regimen.yesterday he received a dose of Lasix IV push, 24-hour I&O reflecting a negative fluid balance .Continues on IV iron. 12/22/2021 sensorium significantly improved, much more alert. Reports she feels better. Bicarb 37. Maintaining O2 sats in the low 90s on 8 L high flow nasal cannula. Chest x-ray continues to report persistent reticulonodular densities bilaterally with increased right lower lobe density. Continues on daptomycin. Diuresing well on Lasix IV push with 24-hour I reflecting a negative fluid balance. Renal function trending down ,BUN 46, creatinine 1.79. Continues on IV iron. 12/23/2021 maintained on 8 L nasal cannula high flow,O2 sats in the 90s, BiPAP during the night. CO2 34. Minimal cough. Continues on daptomycin. Renal function improving. Afebrile. 12/26/2021 continues on 8 L nasal cannula, maintaining O2 sats in the 90s/ required BiPAP at night , CO2 35. Completed her daptomycin treatment for her enterococcal UTI. Renal function mildly worsened, BUN 50, creatinine 2.45. Denies chest pain, palpitations. Objective - Vital Signs Vital signs: Vital Signs Temp 98.3 F 12/26/21 16:13 Pulse 84 12/26/21 16:13 Resp 20 12/26/21 16:13 BP 137/71 12/26/21 16:13 Pulse Ox 95 12/26/21 16:13 Intake & Output 12/25/21 12/26/21 12/26/21 18:59 06:59 18:59 Intake Total 120 Output Total 650 0 400 Balance -650 0 -280 Intake: Oral 120 Output: Urine 650 400 Stool 0 Other: Voiding Method Indwelling Catheter Indwelling Catheter Indwelling Catheter # Bowel Movements 0 - Exam Exam General: Alert and oriented 3,alert ,Sitting up in bed, NAD. Obese. Vitals reviewed Eyes: PERRL, EOMI, conjunctiva normal HENT: normocephalic, mucus membranes moist Neck: supple, no JVD Lungs: Increased air entry. Fine basilar crackles CV: Regular rate and rhythm, systolic murmur. No edema. Abdomen: soft, nondistended, no organomegaly, +bs Skin: warm and dry, no rash. Neuro: Cranial nerves II through XII grossly intact. No focal deficits. - Labs CBC & Chem 7: 12/25/21 10:29 12/26/21 11:05 Labs: Abnormal Lab Results - Last 24 Hours (Table) 12/25/21 12/25/21 12/26/21 Range/Units 16:33 20:36 06:14 Sodium (137-145) mmol/L Chloride (98-107) mmol/L Carbon Dioxide (22-30) mmol/L BUN (7-17) mg/dL Creatinine (0.52-1.04) mg/dL Glucose (74-99) mg/dL POC Glucose (mg/dL) 151 H 251 H 140 H (75-99) mg/dL 12/26/21 12/26/21 Range/Units 11:05 11:40 Sodium 136 L (137-145) mmol/L Chloride 97 L (98-107) mmol/L Carbon Dioxide 35 H (22-30) mmol/L BUN 50 H (7-17) mg/dL Creatinine 2.45 H (0.52-1.04) mg/dL Glucose 144 H (74-99) mg/dL POC Glucose (mg/dL) 150 H (75-99) mg/dL Assessment and Plan Assessment: Acute on chronic CHF exacerbation, diastolic dysfunction Moderate to severe pulmonary hypertension, RVSP 55.45 Acute UTI with enterococcus faecalis, completed antibiotic therapy History of ARDS related to Recent covid infection infection 09/27 Pulmonary fibrosis Acute on chronic hypoxic, hypercapnic respiratory failure secondary to all the above, prn BiPAP COPD, severe Acute on Chronic kidney disease, stage IIIB, secondary to ATN related to cardiorenal syndrome Anemia of chronic kidney disease, iron deficient Urinary retention Hypertension Aortic Stenosis,mild Hypothyroidism Diabetes mellitus type 2 Morbid obesity, BMI 42.3 plan: Continue on current medication regime ,monitoring and symptomatic treatment. Bipap prn. Diuretics converted to oral as per nephrology. Aggressive pulmonary toileting, nebulized bronchodilators. Prognosis guarded given multiple complex medical issues- discussed with daughter this morning at bedside via phone. Discharge planning in progress pending final DC recommendations and clearance per nephrology and pulmonary. The impression and plan of care has been dictated as directed. : I performed a history and examination of this patient, discussed the same with the dictator. I agree with the dictator's note ,documented as a scribe. Any additional findings or plans will be noted.
[2021-12-26 20:06] LABS: Glucose,Whole Blood 173 mg/dL (75-99)
[2021-12-26] MEDS: PRAVASTATIN SODIUM 40 MG TAB PO SCH (21:00)
[2021-12-26] MEDS: MONTELUKAST 10 MG TAB PO SCH (21:00)
[2021-12-26] MEDS: SERTRALINE 100 MG TAB PO SCH (21:00)
[2021-12-26] MEDS: LORazepam 2 MG/ML INJ IV PRN (22:56)
[2021-12-27 06:07] LABS: Glucose,Whole Blood 138 mg/dL (75-99)
[2021-12-27] MEDS: hydrALAZINE HCL 50 MG TAB PO SCH ×3 (06:29→20:17)
[2021-12-27] MEDS: LEVOTHYROXINE 88 MCG TAB PO SCH (06:29)
[2021-12-27] MEDS: INSULIN ASPART (NovoLOG) 100 UNIT/ML VIAL SQ SCH ×4 (06:29→20:18)
[2021-12-27] MEDS: IPRATROPIUM-ALBUTEROL 3 ML NEB INHALATION SCH ×4 (07:58→19:55)
[2021-12-27] MEDS: SYMBICORT 160-4.5 MCG INHALER INHALATION SCH ×2 (07:58→19:55)
[2021-12-27] MEDS ORDERED: FUROSEMIDE 40 MG TAB PO SCH (09:00)
[2021-12-27 09:05] LABS: Calcium 8.6 mg/dL (8.4-10.2); Potassium 4.4 mmol/L (3.5-5.1)
[2021-12-27] MEDS: TAMSULOSIN 0.4 MG CAP.ER.24H PO SCH (09:49)
[2021-12-27] MEDS: amLODIPine 10 MG TAB PO SCH (09:50)
[2021-12-27] MEDS: HEPARIN SODIUM,PORCINE/PF 5,000 UNIT/0.5 ML SYRINGE SQ SCH ×2 (09:50→20:18)
[2021-12-27] MEDS: busPIRone HCl 5 MG TAB PO SCH ×2 (09:50→20:17)
[2021-12-27] MEDS: THYROID, PORK 30 MG TAB PO SCH (09:51)
[2021-12-27] MEDS: METOPROLOL TARTRATE 50 MG TAB PO SCH (09:51)
--- NOTE | 2021-12-27 10:25 | P.PN ---
Subjective Progress Note Date: 12/27/21 HISTORY OF PRESENT ILLNESS: This is a pleasant 71-year-old female past medical history significant for COPD requiring supplemental home oxygen diabetes hypertension hypothyroidism and morbid obesity. 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 We have been asked to see in consultation for acute congestive heart failure. Patient was brought into the ER by her daughter for increased shortness of breath. Patient had Covid in September 2021 and since that time she has been requiring increased supplemental oxygen. She reports she has moderate exertional dyspnea. Patient started on IV Lasix in the emergency department. Echocardiogram revealed normal ejection fraction 5560 percent, mild aortic stenosis, moderate to severe pulmonary hypertension 12/24 seen and examined. Patient denies any chest pain or pressure. Her daughter admits that today is somewhat of a better day and her breathing is somewhat better. She is receiving breathing treatments as well as Lasix with good urine output. Admits her lower extremity edema is improving however still has some central edema 12/25 Patient seen and examined. Patient states she slept much better last night on BiPAP. Has continued with the diuretics and has had good urine output. No labs have been drawn and we will obtain some today. 12/26/2021 Patient examined this morning at the bedside. Patient denies chest pain or pressure. She currently denies SOB. She remains on 8L NC. Creatinine today 2.45. Vital signs are stable. 12/27/2021 Patient examined this morning at the bedside. Patient denies chest pain or pressure. Denies SOB. She is on 8L NC with oxygen saturations greater than 92%. Creatinine 2.3 today. Her lasix has been discontinued. PHYSICAL EXAM: VITAL SIGNS: Reviewed. GENERAL: Well-developed in no acute distress. NECK: Supple. No JVD or thyromegaly LUNGS: Respirations even and unlabored. Lungs essentially clear to auscultation bilaterally. HEART: Regular rate and rhythm. S1 and S2 heard. EXTREMITIES: Normal range of motion. No clubbing or cyanosis. Peripheral pulses intact. Trace lower extremity edema ASSESSMENT: Acute on chronic diastolic heart failure Acute on Chronic kidney disease Aortic stenosis COPD with home oxygen use Type 2 diabetes Hypertension Hypothyroidism PLAN: Continue current cardiac medications Oral lasix discontinued today. Nephrology following. Monitor kidney function Further recommendations pending patient course Nurse practitioner note has been reviewed by physician. Signing provider agrees with the documented findings, assessment, and plan of care. Objective - Vital Signs Vital signs: Vital Signs Temp 98.3 F 12/27/21 08:00 Pulse 74 12/27/21 08:16 Resp 16 12/27/21 08:00 BP 130/56 12/27/21 08:00 Pulse Ox 90 L 12/27/21 08:00 Intake & Output 12/26/21 12/27/21 12/27/21 18:59 06:59 18:59 Intake Total 240 Output Total 400 350 Balance -160 -350 Intake: Oral 240 Output: Urine 400 350 Stool 0 Other: Voiding Method Indwelling Catheter Indwelling Catheter Indwelling Catheter # Bowel Movements 1 - Labs CBC & Chem 7: 12/25/21 10:29 12/27/21 08:18 Labs: Abnormal Lab Results - Last 24 Hours (Table) 12/26/21 12/26/21 12/26/21 Range/Units 11:05 11:40 16:36 Sodium 136 L (137-145) mmol/L Chloride 97 L (98-107) mmol/L Carbon Dioxide 35 H (22-30) mmol/L BUN 50 H (7-17) mg/dL Creatinine 2.45 H (0.52-1.04) mg/dL Glucose 144 H (74-99) mg/dL POC Glucose (mg/dL) 150 H 173 H (75-99) mg/dL 12/26/21 12/27/21 12/27/21 Range/Units 20:02 06:05 08:18 Sodium 135 L (137-145) mmol/L Chloride 94 L (98-107) mmol/L Carbon Dioxide 36 H (22-30) mmol/L BUN 48 H (7-17) mg/dL Creatinine 2.32 H (0.52-1.04) mg/dL Glucose 146 H (74-99) mg/dL POC Glucose (mg/dL) 173 H 138 H (75-99) mg/dL
--- NOTE | 2021-12-27 10:47 | P.PN ---
Subjective Patient is seen for follow-up for acute kidney injury function had been improving. However serum creatinine increased to 2.3 mg/dL. and Lasix was changed to by mouth. Patient has a French catheter for urine retention. Patient is currently being diuresed. Urine output is 750 ML. Blood pressure has not been low Objective - Vital Signs Vital signs: Vital Signs Temp 98.3 F 12/27/21 08:00 Pulse 74 12/27/21 08:16 Resp 16 12/27/21 08:00 BP 130/56 12/27/21 08:00 Pulse Ox 90 L 12/27/21 08:00 Intake & Output 12/26/21 12/27/21 12/27/21 18:59 06:59 18:59 Intake Total 240 Output Total 400 350 Balance -160 -350 Intake: Oral 240 Output: Urine 400 350 Stool 0 Other: Voiding Method Indwelling Catheter Indwelling Catheter Indwelling Catheter # Bowel Movements 1 - Exam Patient is awake comfortable not in any acute distress. Lungs sounds are heard bilaterally examination of the heart S1 and S2 Abdomen is soft nontender Examination lower extremities shows trace edema bilaterally [employer] exam grossly intact - Labs CBC & Chem 7: 12/25/21 10:29 12/27/21 08:18 Labs: Abnormal Lab Results - Last 24 Hours (Table) 12/26/21 12/26/21 12/26/21 Range/Units 11:05 11:40 16:36 Sodium 136 L (137-145) mmol/L Chloride 97 L (98-107) mmol/L Carbon Dioxide 35 H (22-30) mmol/L BUN 50 H (7-17) mg/dL Creatinine 2.45 H (0.52-1.04) mg/dL Glucose 144 H (74-99) mg/dL POC Glucose (mg/dL) 150 H 173 H (75-99) mg/dL 12/26/21 12/27/21 12/27/21 Range/Units 20:02 06:05 08:18 Sodium 135 L (137-145) mmol/L Chloride 94 L (98-107) mmol/L Carbon Dioxide 36 H (22-30) mmol/L BUN 48 H (7-17) mg/dL Creatinine 2.32 H (0.52-1.04) mg/dL Glucose 146 H (74-99) mg/dL POC Glucose (mg/dL) 173 H 138 H (75-99) mg/dL Assessment and Plan Assessment: 1. Acute kidney injury, ATN secondary to cardiorenal syndrome, nonoliguric, was improving. Creatinine is higher now secondary to diuresis. Lasix switch to oral. The increase in creatinine from yesterday is not as significant as the day before. Check accurate I's and O's No evidence of obstruction on ultrasound. Patient has a French catheter 2. Chronic kidney disease NKF stage IIIB with baseline creatinine 1.2-1.4 in 2018 etiology is diabetic kidney disease 3. Acute on chronic diastolic CHF with moderate to severe pulmonary hypertension 4. Acute hypoxic respiratory failure 5. Fluid overload 6. Anemia of chronic disease with iron deficiency receiving IV iron 7. Urine retention currently with French catheter Plan: Hold Lasix for 1 day Resume in a.m. Check chest x-ray
--- NOTE | 2021-12-27 11:32 | P.PN ---
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 Using the BiPAP overnight. Remains on IV Lasix and the patient is on Lasix 40 mg IV every 24 hours. No new complaints. Her fluid balance has been -1055 mL over the past 24 hours she is on 6 L of O2 by nasal cannula. There is a rise in the creatinine and is currently up to 2.3 with a BUN of 44. Sodium level is 136. The patient remains on daptomycin regarding enterococcal UTI. No other complaints otherwise for now. No fever. No chills. Outpatient medication of been ordered resume. Utilizing BiPAP overnight. Chest x-ray still showing stable fluid overload/CHF. This is despite her diuresis. There may be some mild interval improvement of the chest x-ray findings on today's evaluation. Reevaluated today on 12/26/21, patient remains on 8 L nasal cannula, feeling better, breathing easier, remains in a negative fluid balance, receiving diuretics. Being followed by nephrology for worsening renal status. Patient is also receiving daptomycin for her enterococcal urinary tract infection. No fever no chills, she is on BiPAP at night. Chest x-ray to show evidence of interstitial edema in spite of diuresis. Electrolytes are normal bicarb is 35 BUN is 50 creatinine 2.45. WBC count is 5.1 hemoglobin is 8.2. Reevaluated today on 12/27/21, patient remains on high flow oxygen she is now on 10 L nasal cannula however clinically the patient seems to be doing much better today, breathing a lot easier. Patient is afebrile, her vital signs are stable, nonetheless apparently she had poor desaturation early this morning and she was transitioned from 8 L at 10 L high flow nasal cannula. No chest x-ray was done today. Electrolytes are normal BUN is 48 creatinine is a bit better today down to 2.32. Patient remains on bronchodilators, remains on hydralazine, levothyroxine, Ativan, Toprol, Singulair, Pravachol, Zoloft, and Flomax. Patient is also on amlodipine, BuSpar, vitamin D, heparin subcu, and insulin as prescribed. Objective - Vital Signs Vital signs: Vital Signs Temp 97.5 F L 12/27/21 11:10 Pulse 62 12/27/21 11:10 Resp 16 12/27/21 11:10 BP 137/67 12/27/21 11:10 Pulse Ox 95 12/27/21 11:10 Intake & Output 12/26/21 12/27/21 12/27/21 18:59 06:59 18:59 Intake Total 240 Output Total 400 350 140 Balance -160 -350 -140 Intake: Oral 240 Output: Urine 400 350 140 Stool 0 Other: Voiding Method Indwelling Catheter Indwelling Catheter Indwelling Catheter # Bowel Movements 1 - Exam Physical Exam: Revealed a 71-year-old female in no distress, however she is on 10 L high flow nasal cannula Head: Atraumatic, normocephalic. HEENT obese short neck. [No neck masses.] [No thyromegaly.] [No JVD.] PERRLA, EOMI, nonicteric. Chest: Symmetrical chest expansion, crackles at the bases especially at the left base. Cardiac Exam: [Normal S1 and S2, no S3 gallop, no murmur.] Abdomen: [Soft, nontender, no megaly, no rebound, no guarding, normal bowel sounds.] Extremities: [No clubbing, no edema, no cyanosis.] Neurological Exam: [No focal neurologic deficit.] Alert oriented 3. Psychiatric: Normal mood affect and normal mental status exam. Musculoskeletal normal range of motion no deformities. Skin: No rashes. - Labs CBC & Chem 7: 12/25/21 10:29 12/27/21 08:18 Labs: Abnormal Lab Results - Last 24 Hours (Table) 12/26/21 12/26/21 12/26/21 Range/Units 11:05 11:40 16:36 Sodium 136 L (137-145) mmol/L Chloride 97 L (98-107) mmol/L Carbon Dioxide 35 H (22-30) mmol/L BUN 50 H (7-17) mg/dL Creatinine 2.45 H (0.52-1.04) mg/dL Glucose 144 H (74-99) mg/dL POC Glucose (mg/dL) 150 H 173 H (75-99) mg/dL 12/26/21 12/27/21 12/27/21 Range/Units 20:02 06:05 08:18 Sodium 135 L (137-145) mmol/L Chloride 94 L (98-107) mmol/L Carbon Dioxide 36 H (22-30) mmol/L BUN 48 H (7-17) mg/dL Creatinine 2.32 H (0.52-1.04) mg/dL Glucose 146 H (74-99) mg/dL POC Glucose (mg/dL) 173 H 138 H (75-99) mg/dL Assessment and Plan Assessment: Impression: Acute on chronic hypoxic respiratory failure multifactorial, as noted below. acute exacerbation of diastolic congestive heart failure Post COVID-19 pneumonia inflammatory changes and pulmonary fibrosis. History of ARDS secondary to COVID-19 infection History of severe underlying COPD, FEV1 of 41%. Moderate severe pulmonary hypertension History of hypothyroidism Type 2 diabetes Morbid obesity BMI of 42 Acute enterococcal faecalis urinary tract infection on daptomycin. Recommendation: Continue high fluoxetine and titrate accordingly, use BiPAP as needed. Continue diuretics Continue to monitor renal status. Patient is being followed by nephrology. Continue daptomycin We'll continue to follow. Not quite ready for any discharge planning. Needs to be on a lower FiO2 before we could consider discharge planning. Prognosis is relatively guarded. Time with Patient: Less than 30
[2021-12-27 11:37] LABS: Glucose,Whole Blood 138 mg/dL (75-99)
--- NOTE | 2021-12-27 12:37 | XR ---
EXAMINATION TYPE: XR chest 1V DATE OF EXAM: 12/27/2021 CLINICAL HISTORY: Difficulty breathing and CHF progress study. TECHNIQUE: Single AP portable upright view of the chest is obtained. COMPARISON: Chest x-ray from 2 days earlier and older studies FINDINGS: Stable mild cardiomegaly with atherosclerotic change aortic knob. Reticular interstitial p rominence bilaterally remains present with left greater than right bibasilar opacities again seen. Os seous structures are demineralized. IMPRESSION: Mild cardiomegaly with bilateral diffuse reticulonodular infiltrates and/or edema redemon strated. Persistent left greater than right bibasilar acute infiltrate and/or atelectasis. Persistent small size left greater than right pleural effusions. No significant change from most recent x-ray.
--- NOTE | 2021-12-27 16:08 | P.PN ---
Subjective Progress Note Date: 12/27/21 This is a 71-year-old female with past medical history of COPD, on home O2, diabetes mellitus type 2, hypertension admitted with shortness of breath, fluid overload, underlying CHF exacerbation and multiple other medical issues.Maintained on nebulized bronchodilators, Levaquin and Lasix IV push.Diuresing well on Lasix IV push, denies increased shortness of breath except positive exertional shortness of breath, denies cough. Decreasing edema. Worsening renal function, creatinine 2.53. Currently maintaining O2 sats in the high 80s to 2 mid 90s on 8 L high flow nasal cannula. Echo reported normal LV function, EF 55-60%, mild aortic stenosis, moderate to severe pulmonary hypertension. Afebrile. 12/20/2021 tired this morning, unable to sleep well last night secondary to chronic back pain, received tramadol. Mild confusion this morning. Incentive spirometer up to 500. Patient back up to 10 L high flow nasal cannula, maintaining O2 sats in the low 90s. Staff reports patient is a 3 person assist to and from bedside commode, desats with exertion down to 82%. Diuretics discontinued yesterday, renal function improving, creatinine down to 2.25. Chest x-ray reporting ongoing CHF and mild interstitial pulmonary edema superimposed on COPD, continue spot a moderate left pleural effusion with adjacent atelectasis and/or consolidation. Received a dose Lasix IV push. Afebrile, normal WBC. 12/21/2021 last night family believed patient to be more lethargic, ABGs drawn, CO2 60, received a dose of Diamox, CO2 this morning decreased to 36. Continues on 8 L high flow nasal cannula maintaining O2 sats of 97 and 98%. Yesterday antibiotics adjusted to daptomycin as urine culture reported enterococcus faecalis, resistant to quinolones, in a patient with penicillin ALLERGIES, with a elevated creatinine.afebrile renal function improving, BUN 49, creatinine 1.99. Required French catheter for urinary retention .Flomax added to [email or web address].yesterday he received a dose of Lasix IV push, 24-hour I&O reflecting a negative fluid balance .Continues on IV iron. 12/22/2021 sensorium significantly improved, much more alert. Reports she feels better. Bicarb 37. Maintaining O2 sats in the low 90s on 8 L high flow nasal cannula. Chest x-ray continues to report persistent reticulonodular densities bilaterally with increased right lower lobe density. Continues on daptomycin. Diuresing well on Lasix IV push with 24-hour I reflecting a negative fluid balance. Renal function trending down ,BUN 46, creatinine 1.79. Continues on IV iron. 12/23/2021 maintained on 8 L nasal cannula high flow,O2 sats in the 90s, BiPAP during the night. CO2 34. Minimal cough. Continues on daptomycin. Renal function improving. Afebrile. 12/26/2021 continues on 8 L nasal cannula, maintaining O2 sats in the 90s/ required BiPAP at night , CO2 35. Completed her daptomycin treatment for her enterococcal UTI. Renal function mildly worsened, BUN 50, creatinine 2.45. Denies chest pain, palpitations. 12/27/2021 Bipap throughout the night. Currently on 2 L nasal cannula, maintaining O2 sats in the high 80s to low 90s. Denies chest pain, palpitations. Complains of congestion, unable to cough up. Afebrile, renal function improving. Blood sugars controlled. Objective - Vital Signs Vital signs: Vital Signs Temp 97.5 F L 12/27/21 11:10 Pulse 62 12/27/21 13:59 Resp 16 12/27/21 11:10 BP 137/67 12/27/21 11:10 Pulse Ox 91 L 12/27/21 11:42 Intake & Output 12/26/21 12/27/21 12/27/21 18:59 06:59 18:59 Intake Total 240 60 Output Total 400 350 215 Balance -160 -350 -155 Intake: Oral 240 60 Output: Urine 400 350 215 Stool 0 Other: Voiding Method Indwelling Catheter Indwelling Catheter Indwelling Catheter # Bowel Movements 1 - Exam Exam General: Alert and oriented 3,alert ,Sitting up in bed, NAD. Obese. Vitals reviewed Eyes: PERRL, EOMI, conjunctiva normal HENT: normocephalic,MMM Neck: supple, no JVD Lungs: Increased air entry. Scattered rhonchi. CV: Regular rate and rhythm, systolic murmur. No edema. Abdomen: soft, nondistended, no organomegaly, +bs Skin: warm and dry, no rash. Neuro: Cranial nerves II through XII grossly intact. No focal deficits. - Labs CBC & Chem 7: 12/25/21 10:29 12/27/21 08:18 Labs: Abnormal Lab Results - Last 24 Hours (Table) 12/26/21 12/26/21 12/27/21 Range/Units 16:36 20:02 06:05 Sodium (137-145) mmol/L Chloride (98-107) mmol/L Carbon Dioxide (22-30) mmol/L BUN (7-17) mg/dL Creatinine (0.52-1.04) mg/dL Glucose (74-99) mg/dL POC Glucose (mg/dL) 173 H 173 H 138 H (75-99) mg/dL 12/27/21 12/27/21 Range/Units 08:18 11:36 Sodium 135 L (137-145) mmol/L Chloride 94 L (98-107) mmol/L Carbon Dioxide 36 H (22-30) mmol/L BUN 48 H (7-17) mg/dL Creatinine 2.32 H (0.52-1.04) mg/dL Glucose 146 H (74-99) mg/dL POC Glucose (mg/dL) 138 H (75-99) mg/dL Assessment and Plan Assessment: Acute on chronic CHF exacerbation, diastolic dysfunction Moderate to severe pulmonary hypertension, RVSP 55.45 Acute UTI with enterococcus faecalis, completed antibiotic therapy History of ARDS related to Recent covid infection infection 09/27 Pulmonary fibrosis Acute on chronic hypoxic, hypercapnic respiratory failure secondary to all the above, prn BiPAP COPD, severe Acute on Chronic kidney disease, stage IIIB, secondary to ATN related to cardiorenal syndrome Anemia of chronic kidney disease, iron deficient Urinary retention Hypertension Aortic Stenosis,mild Hypothyroidism Diabetes mellitus type 2 Morbid obesity, BMI 42.3 plan: Continue on current medication regime ,monitoring and symptomatic treatment. Flutter valve ordered to mobilize mucous/sputum. Bipap prn. Maintain aggressive pulmonary toileting, nebulized bronchodilators. Discharge planning in progress pending final DC recommendations and clearance per nephrology and pulmonary. The impression and plan of care has been dictated as directed. : I performed a history and examination of this patient, discussed the same with the dictator. I agree with the dictator's note ,documented as a scribe. Any additional findings or plans will be noted.
[2021-12-27 16:23] LABS: Glucose,Whole Blood 135 mg/dL (75-99)
[2021-12-27 19:44] LABS: Glucose,Whole Blood 210 mg/dL (75-99)
[2021-12-27] MEDS: SERTRALINE 100 MG TAB PO SCH (20:17)
[2021-12-27] MEDS: MONTELUKAST 10 MG TAB PO SCH (20:17)
[2021-12-27] MEDS: PRAVASTATIN SODIUM 40 MG TAB PO SCH (20:17)
[2021-12-27] MEDS: LORazepam 2 MG/ML INJ IV PRN (22:21)
[2021-12-28 06:02] LABS: Glucose,Whole Blood 104 mg/dL (75-99)
[2021-12-28] MEDS: hydrALAZINE HCL 50 MG TAB PO SCH ×3 (06:18→20:08)
[2021-12-28] MEDS: LEVOTHYROXINE 88 MCG TAB PO SCH (06:18)
[2021-12-28] MEDS: INSULIN ASPART (NovoLOG) 100 UNIT/ML VIAL SQ SCH ×4 (06:18→20:08)
[2021-12-28] MEDS ORDERED: FUROSEMIDE 10 MG/ML 4 ML VIAL IV STA (08:30)
[2021-12-28] MEDS: SYMBICORT 160-4.5 MCG INHALER INHALATION SCH ×2 (08:46→20:54)
[2021-12-28] MEDS: IPRATROPIUM-ALBUTEROL 3 ML NEB INHALATION SCH ×4 (08:46→20:54)
--- NOTE | 2021-12-28 09:17 | P.PN ---
Subjective Progress Note Date: 12/28/21 HISTORY OF PRESENT ILLNESS: This is a pleasant 71-year-old female past medical history significant for COPD requiring supplemental home oxygen diabetes hypertension hypothyroidism and morbid obesity. 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 We have been asked to see in consultation for acute congestive heart failure. Patient was brought into the ER by her daughter for increased shortness of breath. Patient had Covid in September 2021 and since that time she has been requiring increased supplemental oxygen. She reports she has moderate exertional dyspnea. Patient started on IV Lasix in the emergency department. Echocardiogram revealed normal ejection fraction 5560 percent, mild aortic stenosis, moderate to severe pulmonary hypertension 12/24 seen and examined. Patient denies any chest pain or pressure. Her daughter admits that today is somewhat of a better day and her breathing is somewhat better. She is receiving breathing treatments as well as Lasix with good urine output. Admits her lower extremity edema is improving however still has some central edema 12/25 Patient seen and examined. Patient states she slept much better last night on BiPAP. Has continued with the diuretics and has had good urine output. No labs have been drawn and we will obtain some today. 12/26/2021 Patient examined this morning at the bedside. Patient denies chest pain or pressure. She currently denies SOB. She remains on 8L NC. Creatinine today 2.45. Vital signs are stable. 12/27/2021 Patient examined this morning at the bedside. Patient denies chest pain or pressure. Denies SOB. She is on 8L NC with oxygen saturations greater than 92%. Creatinine 2.3 today. Her lasix has been discontinued. 12/28/2021 Patient examined this morning at the bedside. Patient denies chest pain or pressure. She reports shortness of breath. She has increased from 8L to 10L NC. Oxygen saturation this morning was around 85% during examination. Creatinine this morning is pending. PHYSICAL EXAM: VITAL SIGNS: Reviewed. GENERAL: Well-developed in no acute distress. NECK: Supple. No JVD or thyromegaly LUNGS: Respirations even and unlabored. Lungs diminished with a few crackles bilaterally. HEART: Regular rate and rhythm. S1 and S2 heard. EXTREMITIES: Normal range of motion. No clubbing or cyanosis. Peripheral pulses intact. Trace lower extremity edema ASSESSMENT: Acute on chronic congestive heart failure with preserved ejection fraction, EF 55-60% Acute on chronic kidney disease Acute on chronic hypoxic respiratory failure Aortic stenosis COPD with home oxygen use Type 2 diabetes Hypertension Hypothyroidism PLAN: Continue current cardiac medications Give one dose IV lasix Monitor kidney function. Nephrology following. Further recommendations pending patient course Nurse practitioner note has been reviewed by physician. Signing provider agrees with the documented findings, assessment, and plan of care. Objective - Vital Signs Vital signs: Vital Signs Temp 97.6 F 12/28/21 08:00 Pulse 70 12/28/21 08:00 Resp 22 12/28/21 08:00 BP 142/71 12/28/21 08:00 Pulse Ox 91 L 12/28/21 08:00 Intake & Output 12/27/21 12/28/21 12/28/21 18:59 06:59 18:59 Intake Total 60 Output Total 565 400 Balance -505 -400 Intake: Oral 60 Output: Urine 565 400 Stool 0 Other: Voiding Method Indwelling Catheter Indwelling Catheter # Bowel Movements 1 - Labs CBC & Chem 7: 12/25/21 10:29 12/27/21 08:18 Labs: Abnormal Lab Results - Last 24 Hours (Table) 12/27/21 12/27/21 12/27/21 Range/Units 11:36 16:21 19:43 POC Glucose (mg/dL) 138 H 135 H 210 H (75-99) mg/dL 12/28/21 Range/Units 06:00 POC Glucose (mg/dL) 104 H (75-99) mg/dL
[2021-12-28] MEDS: TAMSULOSIN 0.4 MG CAP.ER.24H PO SCH (09:23)
[2021-12-28] MEDS: amLODIPine 10 MG TAB PO SCH (09:23)
[2021-12-28] MEDS: busPIRone HCl 5 MG TAB PO SCH ×2 (09:23→20:08)
[2021-12-28] MEDS: METOPROLOL TARTRATE 50 MG TAB PO SCH (09:23)
[2021-12-28] MEDS: HEPARIN SODIUM,PORCINE/PF 5,000 UNIT/0.5 ML SYRINGE SQ SCH ×2 (09:24→20:09)
[2021-12-28] MEDS: THYROID, PORK 30 MG TAB PO SCH (09:25)
--- NOTE | 2021-12-28 09:38 | P.PN ---
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 She is currently sitting up in bed. Awake and alert in no acute distress. She is still requiring 10 L high flow nasal cannula to maintain O2 saturation in the 90s. Currently at 94%. Alternating with BiPAP 12/6 and 50% FiO2. No worsening shortness of breath, cough or congestion. Chest x-ray continues to show mild cardiomegaly with bilateral diffuse reticular nodular infiltrates/edema. Persistent left greater than right bibasilar acute infiltrate/atelectasis. Small bilateral pleural effusions. No significant change from previous. Urine culture was positive for Enterococcus faecalis. Blood glucose 104. She is continued on DuoNeb inhalations, Symbicort, Singulair. Heparin for DVT prophylaxis. She is given additional Lasix 40 mg IVP 1 today. BMP pending. She's currently in a -500 ML balance. French catheter remains in place. Objective - Vital Signs Vital signs: Vital Signs Temp 97.6 F 12/28/21 08:00 Pulse 70 12/28/21 08:00 Resp 22 12/28/21 08:00 BP 142/71 12/28/21 08:00 Pulse Ox 91 L 12/28/21 08:00 Intake & Output 12/27/21 12/28/21 12/28/21 18:59 06:59 18:59 Intake Total 60 Output Total 565 400 Balance -505 -400 Intake: Oral 60 Output: Urine 565 400 Stool 0 Other: Voiding Method Indwelling Catheter Indwelling Catheter # Bowel Movements 1 - Exam GENERAL EXAM: Awake, alert 71-year-old female, resting in bed, currently on 10 L of oxygen pulse ox is 94% does not appear to be in any acute distress comfortable in no apparent distress. HEAD: Normocephalic/atraumatic. EYES: Normal reaction of pupils, equal size. Conjunctiva pink, sclera white. NOSE: Clear with pink turbinates. THROAT: No erythema or exudates. NECK: No masses, no JVD, no thyroid enlargement, no adenopathy. CHEST: No chest wall deformity. Symmetrical expansion. LUNGS: Diminished air entry with crackles in the bilateral bases. CVS: Regular rate and rhythm, normal S1 and S2, no gallops, no murmurs, no rubs ABDOMEN: Soft, nontender. No hepatosplenomegaly, normal bowel sounds, no guarding or rigidity. EXTREMITIES: No clubbing, no edema, no cyanosis, 2+ pulses and upper and lower extremities. MUSCULOSKELETAL: Muscle strength and tone normal. SPINE: No scoliosis or deformity SKIN: No rashes CENTRAL NERVOUS SYSTEM: No focal deficits, tone is normal in all 4 extremities. PSYCHIATRIC: Alert and oriented -3. Appropriate affect. Intact judgment and insight. - Labs CBC & Chem 7: 12/25/21 10:29 12/27/21 08:18 Labs: Abnormal Lab Results - Last 24 Hours (Table) 12/27/21 12/27/21 12/27/21 Range/Units 11:36 16:21 19:43 POC Glucose (mg/dL) 138 H 135 H 210 H (75-99) mg/dL 12/28/21 Range/Units 06:00 POC Glucose (mg/dL) 104 H (75-99) mg/dL Assessment and Plan Assessment: 1 Acute on chronic hypoxic respiratory failure, related to acute exacerbation of CHF with diastolic dysfunction, gentle diuresis and the patient is being kept in a negative fluid balance. Last chest x-ray from yesterday was still showing evidence of pulmonary edema. Alternating between 10 L high flow nasal cannula and BiPAP 12/6 and 50% FiO2 2 Acute on chronic hypoxia related to post-COVID syndrome, after which patient had been maintained on 8 L of oxygen since September 2021 3 Prior history of acute respiratory distress syndrome requiring prolonged intubation and mechanical ventilation and eventual tracheostomy tube insertion with subsequent decannulation 4 History of severe COPD, the baseline FEV1 of 41% of predicted 5 History of hypothyroidism 6 History of diabetes mellitus type 2 7 History of hypertension 8 Previous COVID-19 infection in September 2021 9 Chronic kidney disease stage IIIB with a component of an acute kidney injury possibly secondary to diuretics, improving 10 Moderately severe pulmonary hypertension 11 Morbid obesity with BMI of 42 kg/m 12 Acute urinary tract infection related to enterococcus faecalis, currently on daptomycin, initially treated with Levaquin Plan: The patient was seen and evaluated Chest x-ray reviewed Additional Lasix given per cardiology BMP pending Continues to utilize oxygen at 10 L high flow nasal cannula Alternating with BiPAP 12/6 and 50% FiO2 She has been slow to progress Increase her activity as tolerated Titrate down the FiO2 as tolerated We will continue to follow I have personally seen and examined the patient, performed the documentation and the assessment and plan as written. Number of minutes spent on the visit: 10.
[2021-12-28 10:38] LABS: Calcium 8.7 mg/dL (8.4-10.2); Potassium 4.6 mmol/L (3.5-5.1)
[2021-12-28 11:45] LABS: Glucose,Whole Blood 150 mg/dL (75-99)
--- NOTE | 2021-12-28 11:59 | P.PN ---
Subjective Progress Note Date: 12/28/21 This is a 71-year-old female with past medical history of COPD, on home O2, diabetes mellitus type 2, hypertension admitted with shortness of breath, fluid overload, underlying CHF exacerbation and multiple other medical issues.Maintained on nebulized bronchodilators, Levaquin and Lasix IV push.Diuresing well on Lasix IV push, denies increased shortness of breath except positive exertional shortness of breath, denies cough. Decreasing edema. Worsening renal function, creatinine 2.53. Currently maintaining O2 sats in the high 80s to 2 mid 90s on 8 L high flow nasal cannula. Echo reported normal LV function, EF 55-60%, mild aortic stenosis, moderate to severe pulmonary hypertension. Afebrile. 12/20/2021 tired this morning, unable to sleep well last night secondary to chronic back pain, received tramadol. Mild confusion this morning. Incentive spirometer up to 500. Patient back up to 10 L high flow nasal cannula, maintaining O2 sats in the low 90s. Staff reports patient is a 3 person assist to and from bedside commode, desats with exertion down to 82%. Diuretics discontinued yesterday, renal function improving, creatinine down to 2.25. Chest x-ray reporting ongoing CHF and mild interstitial pulmonary edema superimposed on COPD, continue spot a moderate left pleural effusion with adjacent atelectasis and/or consolidation. Received a dose Lasix IV push. Afebrile, normal WBC. 12/21/2021 last night family believed patient to be more lethargic, ABGs drawn, CO2 60, received a dose of Diamox, CO2 this morning decreased to 36. Continues on 8 L high flow nasal cannula maintaining O2 sats of 97 and 98%. Yesterday antibiotics adjusted to daptomycin as urine culture reported enterococcus faecalis, resistant to quinolones, in a patient with penicillin ALLERGIES, with a elevated creatinine.afebrile renal function improving, BUN 49, creatinine 1.99. Required French catheter for urinary retention .Flomax added to med.regimen.yesterday he received a dose of Lasix IV push, 24-hour I&O reflecting a negative fluid balance .Continues on IV iron. 12/22/2021 sensorium significantly improved, much more alert. Reports she feels better. Bicarb 37. Maintaining O2 sats in the low 90s on 8 L high flow nasal cannula. Chest x-ray continues to report persistent reticulonodular densities bilaterally with increased right lower lobe density. Continues on daptomycin. Diuresing well on Lasix IV push with 24-hour I reflecting a negative fluid balance. Renal function trending down ,BUN 46, creatinine 1.79. Continues on IV iron. 12/23/2021 maintained on 8 L nasal cannula high flow,O2 sats in the 90s, BiPAP during the night. CO2 34. Minimal cough. Continues on daptomycin. Renal function improving. Afebrile. 12/26/2021 continues on 8 L nasal cannula, maintaining O2 sats in the 90s/ required BiPAP at night , CO2 35. Completed her daptomycin treatment for her enterococcal UTI. Renal function mildly worsened, BUN 50, creatinine 2.45. Denies chest pain, palpitations. 12/27/2021 Bipap throughout the night. Currently on 2 L nasal cannula, maintaining O2 sats in the high 80s to low 90s. Denies chest pain, palpitations. Complains of congestion, unable to cough up. Afebrile, renal function improving. Blood sugars controlled. 12/28/2021 maintained on BiPAP, maintaining O2 sats in the 90s. Reports minimal shortness of breath. Yesterday Lasix held as per nephrology, creatinine and continues trending down, 2.29. Flutter valve ordered yesterday, suspected mucus plugging. Chest x-ray yesterday reported mild cardiomegaly, bilateral diffuse reticulonodular infiltrates and/or edema, persistent left greater than right bibasilar acute infiltrate and/or atelectasis. Persistent small left greater than right pleural effusions-no significant change from prior. Afebrile. Objective - Vital Signs Vital signs: Vital Signs Temp 97.6 F 12/28/21 08:00 Pulse 70 12/28/21 08:00 Resp 22 12/28/21 08:00 BP 142/71 12/28/21 08:00 Pulse Ox 91 L 12/28/21 08:00 Intake & Output 12/27/21 12/28/21 12/28/21 18:59 06:59 18:59 Intake Total 60 Output Total 565 400 Balance -505 -400 Intake: Oral 60 Output: Urine 565 400 Stool 0 Other: Voiding Method Indwelling Catheter Indwelling Catheter Indwelling Catheter # Bowel Movements 1 - Exam Exam General: Alert and oriented 3,alert ,Sitting up in bed, NAD. Obese. Vitals reviewed. Eyes: PERRL, EOMI, conjunctiva normal HENT: normocephalic,MMM Neck: supple, no JVD. Lungs: Increased air entry. Scattered rhonchi. CV: Regular rate and rhythm, systolic murmur. Bilateral lower extremities soft, no edema. Abdomen: soft, nondistended, no organomegaly, +bs Skin: warm and dry, no rash. Neuro: Cranial nerves II through XII grossly intact. No focal deficits. - Labs CBC & Chem 7: 12/25/21 10:29 12/28/21 09:24 Labs: Abnormal Lab Results - Last 24 Hours (Table) 12/27/21 12/27/21 12/28/21 Range/Units 16:21 19:43 06:00 Sodium (137-145) mmol/L Chloride (98-107) mmol/L Carbon Dioxide (22-30) mmol/L BUN (7-17) mg/dL Creatinine (0.52-1.04) mg/dL Glucose (74-99) mg/dL POC Glucose (mg/dL) 135 H 210 H 104 H (75-99) mg/dL 12/28/21 Range/Units 09:24 Sodium 135 L (137-145) mmol/L Chloride 94 L (98-107) mmol/L Carbon Dioxide 32 H (22-30) mmol/L BUN 51 H (7-17) mg/dL Creatinine 2.29 H (0.52-1.04) mg/dL Glucose 136 H (74-99) mg/dL POC Glucose (mg/dL) (75-99) mg/dL Assessment and Plan Assessment: Acute on chronic CHF exacerbation, diastolic dysfunction Moderate to severe pulmonary hypertension, RVSP 55.45 Acute UTI with enterococcus faecalis, completed antibiotic therapy History of ARDS related to Recent covid infection infection 09/27 Pulmonary fibrosis Acute on chronic hypoxic, hypercapnic respiratory failure secondary to all the above, prn BiPAP COPD, severe Acute on Chronic kidney disease, stage IIIB, secondary to ATN related to cardiorenal syndrome Anemia of chronic kidney disease, iron deficient Urinary retention Hypertension Aortic Stenosis,mild Hypothyroidism Diabetes mellitus type 2 Morbid obesity, BMI 42.3 plan: Continue on current medication regime ,monitoring and symptomatic treatment. Flutter valve ordered-staff obtaining, to mobilize mucous/sputum. Bipap prn. Maintain aggressive pulmonary toileting, nebulized bronchodilators. Titrate FiO2 as tolerated. Follow closely with pulmonary. Lasix IV push ordered per cardiology. The impression and plan of care has been dictated as directed. : I performed a history and examination of this patient, discussed the same with the dictator. I agree with the dictator's note ,documented as a scribe. Any additional findings or plans will be noted.
--- NOTE | 2021-12-28 12:42 | P.PN ---
Subjective Patient is seen for follow-up for acute kidney injury function had been improving. However serum creatinine increased to 2.3 mg/dL. and Lasix was changed to by mouth. Patient has a French catheter for urine retention. Patient's diuretics were held for about a day due to worsening renal function however this morning she developed significant shortness of breath and fluid overload. Oxygen was increased to 10 L. 24 hour urine output documented at 9 65 mL Patient received IV Lasix 40 mg 1. Objective - Vital Signs Vital signs: Vital Signs Temp 97.6 F 12/28/21 08:00 Pulse 77 12/28/21 11:48 Resp 22 12/28/21 08:00 BP 142/71 12/28/21 08:00 Pulse Ox 91 L 12/28/21 08:00 Intake & Output 12/27/21 12/28/21 12/28/21 18:59 06:59 18:59 Intake Total 60 Output Total 565 400 Balance -505 -400 Intake: Oral 60 Output: Urine 565 400 Stool 0 Other: Voiding Method Indwelling Catheter Indwelling Catheter Indwelling Catheter # Bowel Movements 1 - Exam Patient is awake comfortable not in any acute distress. Lungs sounds are heard bilaterally examination of the heart S1 and S2 Abdomen is soft nontender, obese Examination lower extremities shows 1+ edema bilaterally PONY EDGER exam grossly intact - Labs CBC & Chem 7: 12/25/21 10:29 12/28/21 09:24 Labs: Abnormal Lab Results - Last 24 Hours (Table) 12/27/21 12/27/21 12/28/21 Range/Units 16:21 19:43 06:00 Sodium (137-145) mmol/L Chloride (98-107) mmol/L Carbon Dioxide (22-30) mmol/L BUN (7-17) mg/dL Creatinine (0.52-1.04) mg/dL Glucose (74-99) mg/dL POC Glucose (mg/dL) 135 H 210 H 104 H (75-99) mg/dL 12/28/21 12/28/21 Range/Units 09:24 11:44 Sodium 135 L (137-145) mmol/L Chloride 94 L (98-107) mmol/L Carbon Dioxide 32 H (22-30) mmol/L BUN 51 H (7-17) mg/dL Creatinine 2.29 H (0.52-1.04) mg/dL Glucose 136 H (74-99) mg/dL POC Glucose (mg/dL) 150 H (75-99) mg/dL Assessment and Plan Assessment: 1. Acute kidney injury, ATN secondary to cardiorenal syndrome, nonoliguric, was improving. Creatinine is higher now secondary to diuresis. Lasix switch to oral. The increase in creatinine from yesterday is not as significant as the day before. No evidence of obstruction on ultrasound. Patient has a French catheter 2. Chronic kidney disease NKF stage IIIB with baseline creatinine 1.2-1.4 in August 2019, etiology is diabetic kidney disease 3. Acute on chronic diastolic CHF with moderate to severe pulmonary hypertension 4. Acute hypoxic respiratory failure 5. Fluid overload 6. Anemia of chronic disease with iron deficiency receiving IV iron 7. Urine retention currently with French catheter Plan: Continue to diurese patient. Maintain Lasix on a scheduled dose every 12 hours.
[2021-12-28] MEDS ORDERED: FUROSEMIDE 10 MG/ML 10 ML VIAL IV STA (12:43)
[2021-12-28 16:28] LABS: Glucose,Whole Blood 167 mg/dL (75-99)
[2021-12-28] MEDS: methylPREDNISolone SOD SUCCI 40 MG/ML 1 ML VIAL IV SCH ×2 (18:52→23:09)
[2021-12-28 19:29] LABS: Glucose,Whole Blood 192 mg/dL (75-99)
[2021-12-28] MEDS: SERTRALINE 100 MG TAB PO SCH (20:08)
[2021-12-28] MEDS: MONTELUKAST 10 MG TAB PO SCH (20:08)
[2021-12-28] MEDS: PRAVASTATIN SODIUM 40 MG TAB PO SCH (20:08)
[2021-12-28] MEDS: FUROSEMIDE 10 MG/ML 4 ML VIAL IV SCH (20:08)
[2021-12-29 05:47] LABS: Glucose,Whole Blood 249 mg/dL (75-99)
[2021-12-29] MEDS: INSULIN ASPART (NovoLOG) 100 UNIT/ML VIAL SQ SCH ×4 (06:18→20:40)
[2021-12-29] MEDS: hydrALAZINE HCL 50 MG TAB PO SCH (06:18)
[2021-12-29] MEDS: LEVOTHYROXINE 88 MCG TAB PO SCH (06:18)
[2021-12-29] MEDS: SYMBICORT 160-4.5 MCG INHALER INHALATION SCH ×2 (08:25→21:07)
[2021-12-29] MEDS: IPRATROPIUM-ALBUTEROL 3 ML NEB INHALATION SCH ×4 (08:25→21:07)
[2021-12-29] MEDS: FUROSEMIDE 10 MG/ML 4 ML VIAL IV SCH ×2 (08:40→20:40)
[2021-12-29] MEDS: HEPARIN SODIUM,PORCINE/PF 5,000 UNIT/0.5 ML SYRINGE SQ SCH ×2 (08:40→20:40)
[2021-12-29] MEDS: METOPROLOL TARTRATE 50 MG TAB PO SCH (08:40)
[2021-12-29] MEDS: TAMSULOSIN 0.4 MG CAP.ER.24H PO SCH (08:40)
[2021-12-29] MEDS: THYROID, PORK 30 MG TAB PO SCH (08:40)
[2021-12-29] MEDS: busPIRone HCl 5 MG TAB PO SCH ×2 (08:40→20:40)
[2021-12-29] MEDS: amLODIPine 10 MG TAB PO SCH (08:40)
[2021-12-29 08:58] LABS: Potassium 5.2 mmol/L (3.5-5.1)
[2021-12-29] MEDS: methylPREDNISolone SOD SUCCI 40 MG/ML 1 ML VIAL IV SCH ×2 (10:30→16:09)
--- NOTE | 2021-12-29 10:34 | P.PN ---
Subjective Progress Note Date: 12/29/21 HISTORY OF PRESENT ILLNESS: This is a pleasant 71-year-old female past medical history significant for COPD requiring supplemental home oxygen diabetes hypertension hypothyroidism and morbid obesity. 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 We have been asked to see in consultation for acute congestive heart failure. Patient was brought into the ER by her daughter for increased shortness of breath. Patient had Covid in September 2021 and since that time she has been requiring increased supplemental oxygen. She reports she has moderate exertional dyspnea. Patient started on IV Lasix in the emergency department. Echocardiogram revealed normal ejection fraction 5560 percent, mild aortic stenosis, moderate to severe pulmonary hypertension 12/24 seen and examined. Patient denies any chest pain or pressure. Her daughter admits that today is somewhat of a better day and her breathing is somewhat better. She is receiving breathing treatments as well as Lasix with good urine output. Admits her lower extremity edema is improving however still has some central edema 12/25 Patient seen and examined. Patient states she slept much better last night on BiPAP. Has continued with the diuretics and has had good urine output. No labs have been drawn and we will obtain some today. 12/26/2021 Patient examined this morning at the bedside. Patient denies chest pain or pressure. She currently denies SOB. She remains on 8L NC. Creatinine today 2.45. Vital signs are stable. 12/27/2021 Patient examined this morning at the bedside. Patient denies chest pain or pressure. Denies SOB. She is on 8L NC with oxygen saturations greater than 92%. Creatinine 2.3 today. Her lasix has been discontinued. 12/28/2021 Patient examined this morning at the bedside. Patient denies chest pain or pressure. She reports shortness of breath. She has increased from 8L to 10L NC. Oxygen saturation this morning was around 85% during examination. Creatinine this morning is pending. 12/29/2021 Patient examined this morning at the bedside. Patient appears more comfortable this morning. She denies shortness of breath or chest pain. Patient's oxygen has been weaned back down to 8 L with O2 saturations greater than 92%. Patient was started on IV Lasix 40 mg every 12 hours. Patient's creatinine is stable today at 2.2. Fluid balance over the last 24 hours is -745 mL. Blood pressure remains elevated with a recent reading of 176/66. PHYSICAL EXAM: VITAL SIGNS: Reviewed. GENERAL: Well-developed in no acute distress. NECK: Supple. No JVD or thyromegaly LUNGS: Respirations even and unlabored. Lungs diminished with expiratory wheezing noted HEART: Regular rate and rhythm. S1 and S2 heard. EXTREMITIES: Normal range of motion. No clubbing or cyanosis. Peripheral pulses intact. Trace lower extremity edema ASSESSMENT: Acute on chronic congestive heart failure with preserved ejection fraction, EF 55-60% Acute on chronic kidney disease Acute on chronic hypoxic respiratory failure Aortic stenosis COPD with home oxygen use Type 2 diabetes Hypertension Hypothyroidism PLAN: Continue current cardiac medications Monitor kidney function. Nephrology following. IV diuresis per nephrology. Continue to monitor blood pressure. Increase hydralazine to 75 mg every 8 hours. Add Imdur 30mg daily Further recommendations pending patient course Nurse practitioner note has been reviewed by physician. Signing provider agrees with the documented findings, assessment, and plan of care. Objective - Vital Signs Vital signs: Vital Signs Temp 98.7 F 12/29/21 05:30 Pulse 93 12/29/21 08:35 Resp 20 12/29/21 05:30 BP 176/66 12/29/21 05:30 Pulse Ox 92 L 12/29/21 08:25 Intake & Output 12/28/21 12/29/21 12/29/21 18:59 06:59 18:59 Intake Total 180 240 Output Total 400 525 Balance -220 -525 240 Weight 97 kg Intake: Oral 180 240 Output: Urine 400 525 Other: Voiding Method Indwelling Catheter Indwelling Catheter Indwelling Catheter # Bowel Movements 1 - Labs CBC & Chem 7: 12/25/21 10:29 12/29/21 07:30 Labs: Abnormal Lab Results - Last 24 Hours (Table) 12/28/21 12/28/21 12/28/21 Range/Units 09:24 11:44 16:27 Sodium 135 L (137-145) mmol/L Potassium (3.5-5.1) mmol/L Chloride 94 L (98-107) mmol/L Carbon Dioxide 32 H (22-30) mmol/L BUN 51 H (7-17) mg/dL Creatinine 2.29 H (0.52-1.04) mg/dL Glucose 136 H (74-99) mg/dL POC Glucose (mg/dL) 150 H 167 H (75-99) mg/dL 12/28/21 12/29/21 12/29/21 Range/Units 19:28 05:44 07:30 Sodium (137-145) mmol/L Potassium 5.2 H (3.5-5.1) mmol/L Chloride 95 L (98-107) mmol/L Carbon Dioxide 34 H (22-30) mmol/L BUN 52 H (7-17) mg/dL Creatinine 2.20 H (0.52-1.04) mg/dL Glucose 204 H (74-99) mg/dL POC Glucose (mg/dL) 192 H 249 H (75-99) mg/dL
--- NOTE | 2021-12-29 11:32 | P.PN ---
Subjective Patient is seen for follow-up for acute kidney injury function had been improving. However serum creatinine increased to 2.3 mg/dL. and Lasix was changed to by mouth. Patient has a French catheter for urine retention. This morning patient is breathing much more easier. 24 hour urine output documented at 9 50 mL. Patient received multiple doses of IV Lasix yesterday. Serum creatinine at 2.2 mg/dL today. Objective - Vital Signs Vital signs: Vital Signs Temp 98.5 F 12/29/21 08:00 Pulse 67 12/29/21 11:27 Resp 21 12/29/21 08:00 BP 161/67 12/29/21 08:00 Pulse Ox 92 L 12/29/21 08:25 Intake & Output 12/28/21 12/29/21 12/29/21 18:59 06:59 18:59 Intake Total 180 240 Output Total 400 525 Balance -220 -525 240 Weight 97 kg Intake: Oral 180 240 Output: Urine 400 525 Other: Voiding Method Indwelling Catheter Indwelling Catheter Indwelling Catheter # Bowel Movements 1 - Exam Patient is awake comfortable not in any acute distress. 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 intact - Labs CBC & Chem 7: 12/25/21 10:29 12/29/21 07:30 Labs: Abnormal Lab Results - Last 24 Hours (Table) 12/28/21 12/28/21 12/28/21 Range/Units 11:44 16:27 19:28 Potassium (3.5-5.1) mmol/L Chloride (98-107) mmol/L Carbon Dioxide (22-30) mmol/L BUN (7-17) mg/dL Creatinine (0.52-1.04) mg/dL Glucose (74-99) mg/dL POC Glucose (mg/dL) 150 H 167 H 192 H (75-99) mg/dL 12/29/21 12/29/21 Range/Units 05:44 07:30 Potassium 5.2 H (3.5-5.1) mmol/L Chloride 95 L (98-107) mmol/L Carbon Dioxide 34 H (22-30) mmol/L BUN 52 H (7-17) mg/dL Creatinine 2.20 H (0.52-1.04) mg/dL Glucose 204 H (74-99) mg/dL POC Glucose (mg/dL) 249 H (75-99) mg/dL Assessment and Plan Assessment: 1. Acute kidney injury, ATN secondary to cardiorenal syndrome, nonoliguric, was improving. Serum creatinine down staying at about 2.3-2.2 mg/dL. Patient is back on IV Lasix which we can continue. No evidence of obstruction on ultrasound. Patient has a French catheter 2. Chronic kidney disease NKF stage IIIB with baseline creatinine 1.2-1.4 in August 2019, etiology is diabetic kidney disease 3. Acute on chronic diastolic CHF with moderate to severe pulmonary hypertension 4. Acute hypoxic respiratory failure 5. Fluid overload 6. Anemia of chronic disease with iron deficiency receiving IV iron 7. Urine retention currently with French catheter Plan: Continue to diurese patient. Maintain Lasix on a scheduled dose every 12 hours.
[2021-12-29] MEDS: INSULIN DETEMIR (LEVEMIR) 100 UNIT/ML SYR SQ SCH (11:49)
[2021-12-29] MEDS: hydrALAZINE HCL 25 MG TAB PO SCH ×2 (11:50→17:25)
[2021-12-29 11:59] LABS: Glucose,Whole Blood 162 mg/dL (75-99)
[2021-12-29] MEDS: ISOSORBIDE MONONITRATE ER 30 MG TAB.ER.24H PO SCH (12:03)
--- NOTE | 2021-12-29 12:17 | P.PN ---
Subjective Progress Note Date: 12/29/21 The patient is seen today 12/28/2021 in follow-up on the selective care unit. She is currently sitting up in bed. Awake and alert in no acute distress. She is still requiring 10 L high flow nasal cannula to maintain O2 saturation in the 90s. Currently at 94%. Alternating with BiPAP 12/6 and 50% FiO2. No worsening shortness of breath, cough or congestion. Chest x-ray continues to show mild cardiomegaly with bilateral diffuse reticular nodular infiltrates/edema. Persistent left greater than right bibasilar acute infiltrate/atelectasis. Small bilateral pleural effusions. No significant change from previous. Urine culture was positive for Enterococcus faecalis. Blood glucose 104. She is c ontinued on DuoNeb inhalations, Symbicort, Singulair. Heparin for DVT prophylaxis. She is given additional Lasix 40 mg IVP 1 today. BMP pending. She's currently in a -500 ML balance. French catheter remains in place. The patient is seen today 12/29/2021 in follow-up on the selective care unit. She is currently awake and alert in no acute distress. Sitting up in bed. Currently maintaining O2 saturations in the 90s on 8 L high flow nasal cannula. She denies any worsening shortness of breath, cough or congestion. She is maintained on DuoNeb inhalations, Symbicort, Singulair, IV Solu-Medrol. Heparin for DVT prophylaxis. Sodium 138. Potassium 5.2. Bicarb 34. BUN 52. Creatinine 2.2. Glucose 204. She is currently in a negative 900 ML balance. Objective - Vital Signs Vital signs: Vital Signs Temp 98.5 F 12/29/21 08:00 Pulse 74 12/29/21 11:36 Resp 20 12/29/21 11:54 BP 150/68 12/29/21 11:54 Pulse Ox 91 L 12/29/21 11:54 Intake & Output 12/28/21 12/29/21 12/29/21 18:59 06:59 18:59 Intake Total 180 240 Output Total 400 525 Balance -220 -525 240 Weight 97 kg Intake: Oral 180 240 Output: Urine 400 525 Other: Voiding Method Indwelling Catheter Indwelling Catheter Indwelling Catheter # Bowel Movements 1 - Exam GENERAL EXAM: Awake, alert 71-year-old female, resting in bed, currently on 8 L of oxygen pulse ox is 91% does not appear to be in any acute distress comfortable in no apparent distress. HEAD: Normocephalic/atraumatic. EYES: Normal reaction of pupils, equal size. Conjunctiva pink, sclera white. NOSE: Clear with pink turbinates. THROAT: No erythema or exudates. NECK: No masses, no JVD, no thyroid enlargement, no adenopathy. CHEST: No chest wall deformity. Symmetrical expansion. LUNGS: Diminished air entry with crackles in the bilateral bases. CVS: Regular rate and rhythm, normal S1 and S2, no gallops, no murmurs, no rubs ABDOMEN: Soft, nontender. No hepatosplenomegaly, normal bowel sounds, no guarding or rigidity. EXTREMITIES: No clubbing, no edema, no cyanosis, 2+ pulses and upper and lower extremities. MUSCULOSKELETAL: Muscle strength and tone normal. SPINE: No scoliosis or deformity SKIN: No rashes CENTRAL NERVOUS SYSTEM: No focal deficits, tone is normal in all 4 extremities. PSYCHIATRIC: Alert and oriented -3. Appropriate affect. Intact judgment and insight. - Labs CBC & Chem 7: 12/25/21 10:29 12/29/21 07:30 Labs: Abnormal Lab Results - Last 24 Hours (Table) 12/28/21 12/28/21 12/29/21 Range/Units 16:27 19:28 05:44 Potassium (3.5-5.1) mmol/L Chloride (98-107) mmol/L Carbon Dioxide (22-30) mmol/L BUN (7-17) mg/dL Creatinine (0.52-1.04) mg/dL Glucose (74-99) mg/dL POC Glucose (mg/dL) 167 H 192 H 249 H (75-99) mg/dL 12/29/21 12/29/21 Range/Units 07:30 11:49 Potassium 5.2 H (3.5-5.1) mmol/L Chloride 95 L (98-107) mmol/L Carbon Dioxide 34 H (22-30) mmol/L BUN 52 H (7-17) mg/dL Creatinine 2.20 H (0.52-1.04) mg/dL Glucose 204 H (74-99) mg/dL POC Glucose (mg/dL) 162 H (75-99) mg/dL Assessment and Plan Assessment: 1 Acute on chronic hypoxic respiratory failure, related to acute exacerbation of CHF with diastolic dysfunction, gentle diuresis and the patient is being kept in a negative fluid balance. Last chest x-ray was still showing evidence of pulmonary edema. He was given Lasix IV 1. 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, after which patient had been maintained on 8 L of oxygen since September 2021 3 Prior history of acute respiratory distress syndrome requiring prolonged intubation and mechanical ventilation and eventual tracheostomy tube insertion with subsequent decannulation 4 History of severe COPD, the baseline FEV1 of 41% of predicted 5 History of hypothyroidism 6 History of diabetes mellitus type 2 7 History of hypertension 8 Previous COVID-19 infection in September 2021 9 Chronic kidney disease stage IIIB with a component of an acute kidney injury possibly secondary to diuretics, improving 10 Moderately severe pulmonary hypertension 11 Morbid obesity with BMI of 42 kg/m 12 Acute urinary tract infection related to enterococcus faecalis, currently on daptomycin, initially treated with Levaquin Plan: The patient was seen and evaluated Currently on 8 L high flow nasal cannula Alternating with BiPAP 12/6 and 50% FiO2 Increase her activity as tolerated Titrate down the FiO2 as tolerated Follow-up chest x-ray in a.m. We will continue to follow I have personally seen and examined the patient, performed the documentation and the assessment and plan as written. Number of minutes spent on the visit: 10. I have personally seen and examined the patient, reviewed the documentation, agree with the assessment and plan as written. Number of minutes spent on this visit 20 minutes Time with Patient: Less than 30
--- NOTE | 2021-12-29 12:27 | P.PN ---
Subjective Progress Note Date: 12/29/21 This is a 71-year-old female with past medical history of COPD, on home O2, diabetes mellitus type 2, hypertension admitted with shortness of breath, fluid overload, underlying CHF exacerbation and multiple other medical issues.Maintained on nebulized bronchodilators, Levaquin and Lasix IV push.Diuresing well on Lasix IV push, denies increased shortness of breath except positive exertional shortness of breath, denies cough. Decreasing edema. Worsening renal function, creatinine 2.53. Currently maintaining O2 sats in the high 80s to 2 mid 90s on 8 L high flow nasal cannula. Echo reported normal LV function, EF 55-60%, mild aortic stenosis, moderate to severe pulmonary hypertension. Afebrile. 12/20/2021 tired this morning, unable to sleep well last night secondary to chronic back pain, received tramadol. Mild confusion this morning. Incentive spirometer up to 500. Patient back up to 10 L high flow nasal cannula, maintaining O2 sats in the low 90s. Staff reports patient is a 3 person assist to and from bedside commode, desats with exertion down to 82%. Diuretics discontinued yesterday, renal function improving, creatinine down to 2.25. Chest x-ray reporting ongoing CHF and mild interstitial pulmonary edema superimposed on COPD, continue spot a moderate left pleural effusion with adjacent atelectasis and/or consolidation. Received a dose Lasix IV push. Afebrile, normal WBC. 12/21/2021 last night family believed patient to be more lethargic, ABGs drawn, CO2 60, received a dose of Diamox, CO2 this morning decreased to 36. Continues on 8 L high flow nasal cannula maintaining O2 sats of 97 and 98%. Yesterday antibiotics adjusted to daptomycin as urine culture reported enterococcus faecalis, resistant to quinolones, in a patient with penicillin ALLERGIES, with a elevated creatinine.afebrile renal function improving, BUN 49, creatinine 1.99. Required French catheter for urinary retention .Flomax added to med.regimen.yesterday he received a dose of Lasix IV push, 24-hour I&O reflecting a negative fluid balance .Continues on IV iron. 12/22/2021 sensorium significantly improved, much more alert. Reports she feels better. Bicarb 37. Maintaining O2 sats in the low 90s on 8 L high flow nasal cannula. Chest x-ray continues to report persistent reticulonodular densities bilaterally with increased right lower lobe density. Continues on daptomycin. Diuresing well on Lasix IV push with 24-hour I reflecting a negative fluid balance. Renal function trending down ,BUN 46, creatinine 1.79. Continues on IV iron. 12/23/2021 maintained on 8 L nasal cannula high flow,O2 sats in the 90s, BiPAP during the night. CO2 34. Minimal cough. Continues on daptomycin. Renal function improving. Afebrile. 12/26/2021 continues on 8 L nasal cannula, maintaining O2 sats in the 90s/ required BiPAP at night , CO2 35. Completed her daptomycin treatment for her enterococcal UTI. Renal function mildly worsened, BUN 50, creatinine 2.45. Denies chest pain, palpitations. 12/27/2021 Bipap throughout the night. Currently on 2 L nasal cannula, maintaining O2 sats in the high 80s to low 90s. Denies chest pain, palpitations. Complains of congestion, unable to cough up. Afebrile, renal function improving. Blood sugars controlled. 12/28/2021 maintained on BiPAP, maintaining O2 sats in the 90s. Reports minimal shortness of breath. Yesterday Lasix held as per nephrology, creatinine and continues trending down, 2.29. Flutter valve ordered yesterday, suspected mucus plugging. Chest x-ray yesterday reported mild cardiomegaly, bilateral diffuse reticulonodular infiltrates and/or edema, persistent left greater than right bibasilar acute infiltrate and/or atelectasis. Persistent small left greater than right pleural effusions-no significant change from prior. Afebrile. 12/29/2021 maintained on BiPAP during the night, currently on 8 L high flow honey al cannula maintaining O2 sats in the low 90s. Lasix resumed, currently on scheduled IV push. Diuresing well with 24-hour I&O reflecting a negative fluid balance. Creatinine trending down, 2.2, BUN 52. Maintained on IV steroids, hyperglycemic, blood sugars ranging 150 to 250. Denies chest pain, palpitations or increasing shortness of breath. Denies cough, congestion. Denies sweats or chills. Objective - Vital Signs Vital signs: Vital Signs Temp 98.7 F 12/29/21 05:30 Pulse 93 12/29/21 08:35 Resp 20 12/29/21 05:30 BP 176/66 12/29/21 05:30 Pulse Ox 92 L 12/29/21 08:25 Intake & Output 12/28/21 12/29/21 12/29/21 18:59 06:59 18:59 Intake Total 180 Output Total 400 525 Balance -220 -525 Weight 97 kg Intake: Oral 180 Output: Urine 400 525 Other: Voiding Method Indwelling Catheter Indwelling Catheter Indwelling Catheter # Bowel Movements 1 - Exam Exam General: Alert and oriented 3,alert ,Sitting up in bed, NAD. Vitals reviewed. Eyes: PERRL, EOMI, conjunctiva normal HENT: normocephalic,MMM Neck: supple, no JVD. Lungs: Increased air entry. Scattered rhonchi. CV: Regular rate and rhythm, systolic murmur. Bilateral lower extremities soft, no edema. Abdomen: soft, nondistended, no organomegaly, +bs Skin: warm and dry, no rash. Neuro: Cranial nerves II through XII grossly intact. No focal deficits. - Labs CBC & Chem 7: 12/25/21 10:29 12/29/21 07:30 Labs: Abnormal Lab Results - Last 24 Hours (Table) 12/28/21 12/28/21 12/28/21 Range/Units 09:24 11:44 16:27 Sodium 135 L (137-145) mmol/L Potassium (3.5-5.1) mmol/L Chloride 94 L (98-107) mmol/L Carbon Dioxide 32 H (22-30) mmol/L BUN 51 H (7-17) mg/dL Creatinine 2.29 H (0.52-1.04) mg/dL Glucose 136 H (74-99) mg/dL POC Glucose (mg/dL) 150 H 167 H (75-99) mg/dL 12/28/21 12/29/21 12/29/21 Range/Units 19:28 05:44 07:30 Sodium (137-145) mmol/L Potassium 5.2 H (3.5-5.1) mmol/L Chloride 95 L (98-107) mmol/L Carbon Dioxide 34 H (22-30) mmol/L BUN 52 H (7-17) mg/dL Creatinine 2.20 H (0.52-1.04) mg/dL Glucose 204 H (74-99) mg/dL POC Glucose (mg/dL) 192 H 249 H (75-99) mg/dL Assessment and Plan Assessment: Acute on chronic CHF exacerbation, diastolic dysfunction Moderate to severe pulmonary hypertension, RVSP 55.45 Acute UTI with enterococcus faecalis, completed antibiotic therapy History of ARDS related to Recent covid infection infection 09/27 Pulmonary fibrosis Acute on chronic hypoxic, hypercapnic respiratory failure secondary to all the above, prn BiPAP COPD, severe Acute on Chronic kidney disease, stage IIIB, secondary to ATN related to cardiorenal syndrome Anemia of chronic kidney disease, iron deficient Urinary retention Hypertension Aortic Stenosis,mild Hypothyroidism Diabetes mellitus type 2 Morbid obesity, BMI 42.3 plan: Continue on current medication regime ,monitoring and symptomatic treatment. hemoglobin A1c pending .Titrate FiO2 as tolerated. Follow closely with pulmonary. Diuresing as per nephrology .Aggressive pulmonary toileting, nebulized bronchodilators. The impression and plan of care has been dictated as directed. : I performed a history and examination of this patient, discussed the same with the dictator. I agree with the dictator's note ,documented as a scribe. Any additional findings or plans will be noted.
[2021-12-29 16:50] LABS: Glucose,Whole Blood 227 mg/dL (75-99)
[2021-12-29 20:03] LABS: Glucose,Whole Blood 294 mg/dL (75-99)
[2021-12-29] MEDS ORDERED: INSULIN ASPART (NovoLOG) 100 UNIT/ML VIAL SQ ONE ×2 (20:26)
[2021-12-29] MEDS: MONTELUKAST 10 MG TAB PO SCH (20:40)
[2021-12-29] MEDS: PRAVASTATIN SODIUM 40 MG TAB PO SCH (20:40)
[2021-12-29] MEDS: SERTRALINE 100 MG TAB PO SCH (20:40)
[2021-12-30] MEDS: methylPREDNISolone SOD SUCCI 40 MG/ML 1 ML VIAL IV SCH ×3 (00:39→16:59)
[2021-12-30] MEDS: hydrALAZINE HCL 25 MG TAB PO SCH (03:15)
--- NOTE | 2021-12-30 06:45 | XR ---
EXAMINATION TYPE: XR chest 1V portable DATE OF EXAM: 12/30/2021 CLINICAL HISTORY: Difficulty breathing and CHF progress study. TECHNIQUE: Single AP portable upright view of the chest is obtained. COMPARISON: Chest x-ray from 3 days earlier and older studies FINDINGS: Stable mild cardiomegaly with atherosclerotic change aortic knob. Reticular interstitial p rominence bilaterally remains present with left greater than right bibasilar opacities again seen. Os seous structures are demineralized. IMPRESSION: Mild cardiomegaly with bilateral diffuse reticulonodular infiltrates and/or edema redemon strated. Persistent left greater than right bibasilar acute infiltrate and/or atelectasis. Persistent small size bilateral pleural effusions. No significant change from most recent x-ray.
[2021-12-30 07:09] LABS: Glucose,Whole Blood 235 mg/dL (75-99)
[2021-12-30] MEDS: LEVOTHYROXINE 88 MCG TAB PO SCH (07:15)
[2021-12-30] MEDS: INSULIN DETEMIR (LEVEMIR) 100 UNIT/ML SYR SQ SCH (07:15)
[2021-12-30] MEDS: INSULIN ASPART (NovoLOG) 100 UNIT/ML VIAL SQ SCH ×4 (07:15→20:50)
[2021-12-30] MEDS: IPRATROPIUM-ALBUTEROL 3 ML NEB INHALATION SCH ×4 (08:14→20:02)
[2021-12-30] MEDS: SYMBICORT 160-4.5 MCG INHALER INHALATION SCH ×2 (08:14→20:02)
[2021-12-30] MEDS: busPIRone HCl 5 MG TAB PO SCH ×2 (08:36→20:49)
[2021-12-30] MEDS: THYROID, PORK 30 MG TAB PO SCH (08:36)
[2021-12-30] MEDS: ISOSORBIDE MONONITRATE ER 30 MG TAB.ER.24H PO SCH (08:36)
[2021-12-30] MEDS: amLODIPine 10 MG TAB PO SCH (08:36)
[2021-12-30] MEDS: METOPROLOL TARTRATE 50 MG TAB PO SCH (08:36)
[2021-12-30] MEDS: TAMSULOSIN 0.4 MG CAP.ER.24H PO SCH (08:36)
[2021-12-30] MEDS: HEPARIN SODIUM,PORCINE/PF 5,000 UNIT/0.5 ML SYRINGE SQ SCH ×2 (08:36→20:50)
[2021-12-30] MEDS: FUROSEMIDE 10 MG/ML 4 ML VIAL IV SCH ×2 (08:36→20:49)
[2021-12-30 10:01] LABS: Calcium 9.3 mg/dL (8.4-10.2); Potassium 4.9 mmol/L (3.5-5.1)
--- NOTE | 2021-12-30 11:12 | P.PN ---
Subjective Progress Note Date: 12/30/21 HISTORY OF PRESENT ILLNESS: This is a pleasant 71-year-old female past medical history significant for COPD requiring supplemental home oxygen diabetes hypertension hypothyroidism and morbid obesity. 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 We have been asked to see in consultation for acute congestive heart failure. Patient was brought into the ER by her daughter for increased shortness of breath. Patient had Covid in September 2021 and since that time she has been requiring increased supplemental oxygen. She reports she has moderate exertional dyspnea. Patient started on IV Lasix in the emergency department. Echocardiogram revealed normal ejection fraction 5560 percent, mild aortic stenosis, moderate to severe pulmonary hypertension 12/24 seen and examined. Patient denies any chest pain or pressure. Her daughter admits that today is somewhat of a better day and her breathing is somewhat better. She is receiving breathing treatments as well as Lasix with good urine output. Admits her lower extremity edema is improving however still has some central edema 12/25 Patient seen and examined. Patient states she slept much better last night on BiPAP. Has continued with the diuretics and has had good urine output. No labs have been drawn and we will obtain some today. 12/26/2021 Patient examined this morning at the bedside. Patient denies chest pain or pressure. She currently denies SOB. She remains on 8L NC. Creatinine today 2.45. Vital signs are stable. 12/27/2021 Patient examined this morning at the bedside. Patient denies chest pain or pressure. Denies SOB. She is on 8L NC with oxygen saturations greater than 92%. Creatinine 2.3 today. Her lasix has been discontinued. 12/28/2021 Patient examined this morning at the bedside. Patient denies chest pain or pressure. She reports shortness of breath. She has increased from 8L to 10L NC. Oxygen saturation this morning was around 85% during examination. Creatinine this morning is pending. 12/29/2021 Patient examined this morning at the bedside. Patient appears more comfortable this morning. She denies shortness of breath or chest pain. Patient's oxygen has been weaned back down to 8 L with O2 saturations greater than 92%. Patient was started on IV Lasix 40 mg every 12 hours. Patient's creatinine is stable today at 2.2. Fluid balance over the last 24 hours is -745 mL. Blood pressure remains elevated with a recent reading of 176/66. 12/30/2021 Patient examined this morning at the bedside. Patient denies chest pain or pressure. She reports mild soreness of breath. She remains on 8 L nasal cannula. Patient remains on IV Lasix 40 mg every 12 hours. Creatinine today 2.07. Patient's blood pressure remains elevated with a systolic in the 170s. PHYSICAL EXAM: VITAL SIGNS: Reviewed. GENERAL: Well-developed in no acute distress. NECK: Supple. No JVD or thyromegaly LUNGS: Respirations even and unlabored. Lungs diminished HEART: Regular rate and rhythm. S1 and S2 heard. EXTREMITIES: Normal range of motion. No clubbing or cyanosis. Peripheral pulses intact. Trace lower extremity edema ASSESSMENT: Acute on chronic congestive heart failure with preserved ejection fraction, EF 55-60% Acute on chronic kidney disease Acute on chronic hypoxic respiratory failure Aortic stenosis COPD with home oxygen use Type 2 diabetes Hypertension Hypothyroidism PLAN: Continue current cardiac medications Monitor kidney function. Nephrology following. IV diuresis per nephrology. Continue to monitor blood pressure. Increase hydralazine to 100 mg every 8 hours Discontinue metoprolol. Begin carvedilol 25 mg twice a day Further recommendations pending patient course Nurse practitioner note has been reviewed by physician. Signing provider agrees with the documented findings, assessment, and plan of care. Objective - Vital Signs Vital signs: Vital Signs Temp 98.8 F 12/30/21 08:00 Pulse 75 12/30/21 08:29 Resp 20 12/30/21 08:00 BP 178/65 12/30/21 08:00 Pulse Ox 96 12/30/21 08:00 Intake & Output 12/29/21 12/30/21 12/30/21 18:59 06:59 18:59 Intake Total 720 240 Output Total 450 1050 Balance 270 -1050 240 Intake: Oral 720 240 Output: Urine 450 1050 Other: Voiding Method Indwelling Catheter Indwelling Catheter Indwelling Catheter - Labs CBC & Chem 7: 12/25/21 10:29 12/30/21 09:15 Labs: Abnormal Lab Results - Last 24 Hours (Table) 12/28/21 12/29/21 12/29/21 Range/Units 09:24 11:49 16:48 Sodium (137-145) mmol/L Chloride (98-107) mmol/L Carbon Dioxide (22-30) mmol/L BUN (7-17) mg/dL Creatinine (0.52-1.04) mg/dL Glucose (74-99) mg/dL POC Glucose (mg/dL) 162 H 227 H (75-99) mg/dL Hemoglobin A1c 6.6 H (0.0-6.0) % 12/29/21 12/30/21 12/30/21 Range/Units 20:01 07:08 09:15 Sodium 135 L (137-145) mmol/L Chloride 92 L (98-107) mmol/L Carbon Dioxide 37 H (22-30) mmol/L BUN 55 H (7-17) mg/dL Creatinine 2.07 H (0.52-1.04) mg/dL Glucose 211 H (74-99) mg/dL POC Glucose (mg/dL) 294 H 235 H (75-99) mg/dL Hemoglobin A1c (0.0-6.0) %
--- NOTE | 2021-12-30 11:37 | P.PN ---
Subjective Progress Note Date: 12/30/21 On 12/21/2021 patient seen in follow-up on selective care unit, she is resting in bed today, her daughter is at the bedside, and she states the patient is noted to be a bit more confused today, she is moaning and groaning but at the same time she denies any pain. She is awake, she is answering questions, she is oriented 3. She remains on 8 L of oxygen pulse ox is 97%, lung sounds are diminished, with minimal crackles at the bases, she is maintaining negative fluid balance and she is in -1.5 L in the last 24 hours, she received a dose of IV Lasix yesterday and today per nephrology. She is being treated for a urinary tract infection related to enterococcus faecalis, and patient was initially on Levaquin and subsequently sensitivity revealed resistance to Levaquin. Patient is currently on daptomycin per primary care service. She's been afebrile overnight. Hemodynamically she has been stable. Overall fluid volume status is improving, and her last chest x-ray was showing improved appearance of interstitial edema. Today's labs have been reviewed, sodium is 137, potassium is 4.2, chloride is 95, CO2 is 36, BUN is 49, creatinine is 1.99, showing an improvement in the renal function trend. CBC is still pending right now. On 12/22/2021 patient is seen in follow-up on selective care unit. Patient is awake and alert, oriented 3, she is currently on 8 L of oxygen pulse ox is 88- 89%. Clinically she feels short of breath today, although appears to be in no acute distress. We discussed possibility of BiPAP intermittently for increased shortness of breath and hypoxia, and patient would like to try it at this time. She was placed on BiPAP with pressures of 12 and 6 and FiO2 100%, she is getting good tidal volumes of around 700, minute ventilation is 15 L/m. Her O2 saturations on those above-mentioned settings were 99%, she is tolerating BiPAP support quite well. Seems to be rather comfortable. FiO2 has been dropped to 60%. Patient was started on Lasix 40 mg daily, she is in -2.3 liters negative net fluid balance over the last 24 hours. Lower extremity edema is very m inimal. Labs have been reviewed, white blood cell count is 5.3, hemoglobin is 8.6, platelet count is 114, sodium is 136, potassium is 3.8, chloride is 95, CO2 is 37, BUN is 46, creatinine is 1.79, renal profile is actually improving. Patient continues on daptomycin for enterococcus faecalis in her urine culture. Chest x-ray today showing persistent reticulonodular densities throughout both lung doran with increasing right lower lobe density which may reflect focal consolidation and atelectasis and/or developing effusion. On 12/23/2021 patient seen in follow-up on selective care unit. She is up in the chair today, she wore the BiPAP support most of the yesterday, and most of the night, she is currently off BiPAP, she is on high flow oxygen at 8 L, her pulse ox is 92-94%, breathing much more comfortably. Looks more comfortable on today's exam as well. She remains on daily dose of Lasix, she is a -535 ML net fluid balance over the last 24 hours. Her renal function is improving on today's labs. Vital signs have been stable. She remains on inhaled bronchodilators. Follow-up chest x-rays pending. Her appetite is improving, today's labs have been reviewed, sodium is 135, potassium 4.0, BUN is 43 creatinine is down to 1.65. On 12/30/2021 patient seen in follow-up on selective care unit, she is currently on 8 L of oxygen her pulse ox is 94-96%, she is breathing comfortably, she has been wearing the BiPAP support at night, with pressures of 12/6 and FiO2 of 60%. She continues on IV Lasix 40 mg every 12 hours, remains on IV steroids at 40 mg every 8 hours, and nebulized bronchodilators, she is in -780 mL net fluid balance over the last 24 hours, follow-up chest x-ray today shows mild cardiomegaly and bilateral diffuse reticulonodular infiltrates and persistent left greater than right bibasilar infiltrate or atelectasis. There are persistent small sized bilateral pleural effusions. No significant change from most recent chest x-ray. Clinically patient seems to quite comfortable, no altered mentation, no cough, no wheezing, mild crackles at bilateral bases. Lower extremity edema seems to be quite minimal Objective - Vital Signs Vital signs: Vital Signs Temp 98.8 F 12/30/21 08:00 Pulse 75 03/25/22 08:29 Resp 20 12/30/21 08:00 BP 178/65 12/30/21 08:00 Pulse Ox 96 12/30/21 08:00 Intake & Output 12/29/21 12/30/21 12/30/21 18:59 06:59 18:59 Intake Total 720 240 Output Total 450 1050 Balance 270 -1050 240 Intake: Oral 720 240 Output: Urine 450 1050 Other: Voiding Method Indwelling Catheter Indwelling Catheter Indwelling Catheter - Exam GENERAL EXAM: Somnolent, but easily arousable, 71-year-old white female, resting in bed, currently on 8 L of oxygen pulse ox is 96% does not appear to be in any acute distress comfortable in no apparent distress. HEAD: Normocephalic/atraumatic. EYES: Normal reaction of pupils, equal size. Conjunctiva pink, sclera white. NOSE: Clear with pink turbinates. THROAT: No erythema or exudates. NECK: No masses, no JVD, no thyroid enlargement, no adenopathy. CHEST: No chest wall deformity. Symmetrical expansion. LUNGS: Diminished air entry with no crackles, wheeze, rhonchi or dullness. CVS: Regular rate and rhythm, normal S1 and S2, no gallops, no murmurs, no rubs ABDOMEN: Soft, nontender. No hepatosplenomegaly, normal bowel sounds, no guarding or rigidity. EXTREMITIES: No clubbing, no edema, no cyanosis, 2+ pulses and upper and lower extremities. MUSCULOSKELETAL: Muscle strength and tone normal. SPINE: No scoliosis or deformity SKIN: No rashes CENTRAL NERVOUS SYSTEM: Alert and oriented -3. No focal deficits, tone is normal in all 4 extremities. PSYCHIATRIC: Alert and oriented -3. Appropriate affect. Intact judgment and insight. - Labs CBC & Chem 7: 12/25/21 10:29 12/30/21 09:15 Labs: Abnormal Lab Results - Last 24 Hours (Table) 12/28/21 12/29/21 12/29/21 Range/Units 09:24 11:49 16:48 Sodium (137-145) mmol/L Chloride (98-107) mmol/L Carbon Dioxide (22-30) mmol/L BUN (7-17) mg/dL Creatinine (0.52-1.04) mg/dL Glucose (74-99) mg/dL POC Glucose (mg/dL) 162 H 227 H (75-99) mg/dL Hemoglobin A1c 6.6 H (0.0-6.0) % 12/29/21 12/30/21 12/30/21 Range/Units 20:01 07:08 09:15 Sodium 135 L (137-145) mmol/L Chloride 92 L (98-107) mmol/L Carbon Dioxide 37 H (22-30) mmol/L BUN 55 H (7-17) mg/dL Creatinine 2.07 H (0.52-1.04) mg/dL Glucose 211 H (74-99) mg/dL POC Glucose (mg/dL) 294 H 235 H (75-99) mg/dL Hemoglobin A1c (0.0-6.0) % Assessment and Plan Plan: Assessment: #1. Acute on chronic hypoxic respiratory failure, related to acute exacerbation of CHF with diastolic dysfunction #2. 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 Prior history of acute respiratory distress syndrome requiring prolonged intubation and mechanical ventilation and eventual tracheostomy tube insertion with subsequent decannulation #4. History of severe COPD, the baseline FEV1 of 41% of predicted #5. History of hypothyroidism #6. History of diabetes mellitus type 2 #7. History of hypertension #8. Previous COVID-19 infection in September 2021 #9. Chronic kidney disease stage IIIB with a component of an acute kidney injury possibly secondary to diuretics, improving #10. Moderately severe pulmonary hypertension #11. Morbid obesity with BMI of 42 kg/m #12. Acute urinary tract infection related to enterococcus faecalis, currently on daptomycin, initially treated with Levaquin Plan: Patient seems to be breathing quite comfortably Today's chest x-ray has been reviewed showing stable findings of reticulonodular infiltrates, bibasilar atelectasis and/or infiltrate and small pleural effusions Relatively stable findings compared to previous chest x-ray She is on 8 L of oxygen, which can be weaned further down BiPAP support at bedtime IV diuretics continue per nephrology Continue IV Solu-Medrol Increase activity as tolerated Spoke to the patient's daughter today on the phone The daughter is planning on taken the patient home on palliative care She wants to know if the patient can be placed on long-term steroids for her breathing Patient does have chronic interstitial lung disease from previous COVID-19 pneumonia After she completes the steroid taper if she can be considered for maintenance dose of prednisone 5 mg daily I have personally seen and examined the patient, performed the documentation and the assessment and plan as written. Number of minutes spent on the visit: [10] Time with Patient: Less than 30
[2021-12-30 12:07] LABS: Glucose,Whole Blood 168 mg/dL (75-99)
[2021-12-30] MEDS: hydrALAZINE HCL 50 MG TAB PO SCH ×2 (12:25→16:58)
--- NOTE | 2021-12-30 13:45 | P.PN ---
Subjective Progress Note Date: 12/30/21 This is a 71-year-old female with past medical history of COPD, on home O2, diabetes mellitus type 2, hypertension admitted with shortness of breath, fluid overload, underlying CHF exacerbation and multiple other medical issues.Maintained on nebulized bronchodilators, Levaquin and Lasix IV push.Diuresing well on Lasix IV push, denies increased shortness of breath except positive exertional shortness of breath, denies cough. Decreasing edema. Worsening renal function, creatinine 2.53. Currently maintaining O2 sats in the high 80s to 2 mid 90s on 8 L high flow nasal cannula. Echo reported normal LV function, EF 55-60%, mild aortic stenosis, moderate to severe pulmonary hypertension. Afebrile. 12/20/2021 tired this morning, unable to sleep well last night secondary to chronic back pain, received tramadol. Mild confusion this morning. Incentive spirometer up to 500. Patient back up to 10 L high flow nasal cannula, maintaining O2 sats in the low 90s. Staff reports patient is a 3 person assist to and from bedside commode, desats with exertion down to 82%. Diuretics discontinued yesterday, renal function improving, creatinine down to 2.25. Chest x-ray reporting ongoing CHF and mild interstitial pulmonary edema superimposed on COPD, continue spot a moderate left pleural effusion with adjacent atelectasis and/or consolidation. Received a dose Lasix IV push. Afebrile, normal WBC. 12/21/2021 last night family believed patient to be more lethargic, ABGs drawn, CO2 60, received a dose of Diamox, CO2 this morning decreased to 36. Continues on 8 L high flow nasal cannula maintaining O2 sats of 97 and 98%. Yesterday antibiotics adjusted to daptomycin as urine culture reported enterococcus faecalis, resistant to quinolones, in a patient with penicillin ALLERGIES, with a elevated creatinine.afebrile renal function improving, BUN 49, creatinine 1.99. Required French catheter for urinary retention .Flomax added to med.regimen.yesterday he received a dose of Lasix IV push, 24-hour I&O reflecting a negative fluid balance .Continues on IV iron. 12/22/2021 sensorium significantly improved, much more alert. Reports she feels better. Bicarb 37. Maintaining O2 sats in the low 90s on 8 L high flow nasal cannula. Chest x-ray continues to report persistent reticulonodular densities bilaterally with increased right lower lobe density. Continues on daptomycin. Diuresing well on Lasix IV push with 24-hour I reflecting a negative fluid balance. Renal function trending down ,BUN 46, creatinine 1.79. Continues on IV iron. 12/23/2021 maintained on 8 L nasal cannula high flow,O2 sats in the 90s, BiPAP during the night. CO2 34. Minimal cough. Continues on daptomycin. Renal function improving. Afebrile. 12/26/2021 continues on 8 L nasal cannula, maintaining O2 sats in the 90s/ required BiPAP at night , CO2 35. Completed her daptomycin treatment for her enterococcal UTI. Renal function mildly worsened, BUN 50, creatinine 2.45. Denies chest pain, palpitations. 12/27/2021 Bipap throughout the night. Currently on 2 L nasal cannula, maintaining O2 sats in the high 80s to low 90s. Denies chest pain, palpitations. Complains of congestion, unable to cough up. Afebrile, renal function improving. Blood sugars controlled. 12/28/2021 maintained on BiPAP, maintaining O2 sats in the 90s. Reports minimal shortness of breath. Yesterday Lasix held as per nephrology, creatinine and continues trending down, 2.29. Flutter valve ordered yesterday, suspected mucus plugging. Chest x-ray yesterday reported mild cardiomegaly, bilateral diffuse reticulonodular infiltrates and/or edema, persistent left greater than right bibasilar acute infiltrate and/or atelectasis. Persistent small left greater than right pleural effusions-no significant change from prior. Afebrile. 12/29/2021 maintained on BiPAP during the night, currently on 8 L high flow honey al cannula maintaining O2 sats in the low 90s. Lasix resumed, currently on scheduled IV push. Diuresing well with 24-hour I&O reflecting a negative fluid balance. Creatinine trending down, 2.2, BUN 52. Maintained on IV steroids, hyperglycemic, blood sugars ranging 150 to 250. Denies chest pain, palpitations or increasing shortness of breath. Denies cough, congestion. Denies sweats or chills. 12/30/2021 required BiPAP off-and-on throughout the night. Currently maintaining O2 sats in the 90s on 8 L high flow nasal cannula. Chest x-ray reporting no significant change from prior. Afebrile. patient visiting with her daughter via phone, laughing, smiling. Conversing without shortness of breath. Tolerating diet with no nausea vomiting or diarrhea. Positive bowel movement yesterday. Denies abdominal pain. Diuresing well, 24-hour I&O continues to reflect a negative fluid balance, no edema. Renal function continues improving. Denies cough, congestion, shortness of breath. Denies chest pain, palpitations. Palliative care discussed with both patient and daughter who are in agreement with informational meeting. Daughter quit her job to take care of her mom and is interested in obtaining additional resources to help her at home. Case management notified. Patient and daughter discussed ready for discharge home,tomorrow. Objective - Vital Signs Vital signs: Vital Signs Temp 98.8 F 12/30/21 08:00 Pulse 78 12/30/21 12:23 Resp 20 12/30/21 08:00 BP 178/65 12/30/21 08:00 Pulse Ox 96 12/30/21 08:00 Intake & Output 12/29/21 12/30/21 12/30/21 18:59 06:59 18:59 Intake Total 720 240 Output Total 450 1050 Balance 270 -1050 240 Intake: Oral 720 240 Output: Urine 450 1050 Other: Voiding Method Indwelling Catheter Indwelling Catheter Indwelling Catheter - Exam Exam General: Alert and oriented 3,alert ,Sitting up in bed, no shortness of breath with conversing or laughing. NAD. Vitals reviewed. Eyes: PERRL, EOMI, conjunctiva normal HENT: normocephalic,MMM Neck: supple, no JVD. Lungs: Increased air entry. Bilateral bases diminished. CV: Regular rate and rhythm, systolic murmur. Bilateral lower extremities soft, no edema. Abdomen: soft, nondistended, no organomegaly, +bs Skin: warm and dry, no rash. Neuro: Cranial nerves II through XII grossly intact. No focal deficits. - Labs CBC & Chem 7: 12/25/21 10:29 12/30/21 09:15 Labs: Abnormal Lab Results - Last 24 Hours (Table) 12/28/21 12/29/2112/29/22 Range/Units 09:24 16:48 20:01 Sodium (137-145) mmol/L Chloride (98-107) mmol/L Carbon Dioxide (22-30) mmol/L BUN (7-17) mg/dL Creatinine (0.52-1.04) mg/dL Glucose (74-99) mg/dL POC Glucose (mg/dL) 227 H 294 H (75-99) mg/dL Hemoglobin A1c 6.6 H (0.0-6.0) % 12/30/21 12/30/21 12/30/21 Range/Units 07:08 09:15 12:02 Sodium 135 L (137-145) mmol/L Chloride 92 L (98-107) mmol/L Carbon Dioxide 37 H (22-30) mmol/L BUN 55 H (7-17) mg/dL Creatinine 2.07 H (0.52-1.04) mg/dL Glucose 211 H (74-99) mg/dL POC Glucose (mg/dL) 235 H 168 H (75-99) mg/dL Hemoglobin A1c (0.0-6.0) % Assessment and Plan Assessment: Acute on chronic CHF exacerbation, diastolic dysfunction Moderate to severe pulmonary hypertension, RVSP 55.45 Acute UTI with enterococcus faecalis, completed antibiotic therapy History of ARDS related to Recent covid infection infection 09/27 Pulmonary fibrosis Acute on chronic hypoxic, hypercapnic respiratory failure secondary to all the above, prn BiPAP COPD, severe Acute on Chronic kidney disease, stage IIIB, secondary to ATN related to cardiorenal syndrome Anemia of chronic kidney disease, iron deficient Urinary retention Hypertension Aortic Stenosis,mild Hypothyroidism Diabetes mellitus type 2, A1c 6.6 Morbid obesity, BMI 42.3 plan: Continue on current medication regime ,monitoring and symptomatic treatment. Diuresing as per nephrology .Maintain aggressive pulmonary toileting, nebulized bronchodilators. Continue titrate FiO2 as tolerated. Discussed with both patient and daughter regarding palliative care-agreeable with informational palliative consult. CM notified. Patient wants to be discharged home tomorrow .Discharge planning in progress pending final DC recommendations and clearance per pulmonary. The impression and plan of care has been dictated as directed. : I performed a history and examination of this patient, discussed the same with the dictator. I agree with the dictator's note ,documented as a scribe. Any additional findings or plans will be noted.
--- NOTE | 2021-12-30 13:58 | P.PN ---
Subjective Patient is seen for follow-up for acute kidney injury function had been improving. However serum creatinine increased to 2.3 mg/dL. and Lasix was changed to by mouth. Patient has a French catheter for urine retention. Her respiratory status had worsened and therefore IV Lasix was restarted. Next Patient has had significant improvement in her respiratory status. Serum creatinine has further improved to 2.0 24 hour urine output at 1500 mL Objective - Vital Signs Vital signs: Vital Signs Temp 98.8 F 12/30/21 08:00 Pulse 78 12/30/21 12:23 Resp 20 12/30/21 08:00 BP 178/65 12/30/21 08:00 Pulse Ox 96 12/30/21 08:00 Intake & Output 12/29/21 12/30/21 12/30/21 18:59 06:59 18:59 Intake Total 720 240 Output Total 450 1050 Balance 270 -1050 240 Intake: Oral 720 240 Output: Urine 450 1050 Other: Voiding Method Indwelling Catheter Indwelling Catheter Indwelling Catheter - Exam Patient is awake comfortable not in any acute distress. Lungs sounds are heard bilaterally examination of the heart S1 and S2 Abdomen is soft nontender, obese Examination lower extremities shows 1+ edema bilaterally SPOUT LINER HELPER exam grossly intact - Labs CBC & Chem 7: 12/25/21 10:29 12/30/21 09:15 Labs: Abnormal Lab Results - Last 24 Hours (Table) 12/28/21 12/29/21 12/29/21 Range/Units 09:24 16:48 20:01 Sodium (137-145) mmol/L Chloride (98-107) mmol/L Carbon Dioxide (22-30) mmol/L BUN (7-17) mg/dL Creatinine (0.52-1.04) mg/dL Glucose (74-99) mg/dL POC Glucose (mg/dL) 227 H 294 H (75-99) mg/dL Hemoglobin A1c 6.6 H (0.0-6.0) % 12/30/21 12/30/21 12/30/21 Range/Units 07:08 09:15 12:02 Sodium 135 L (137-145) mmol/L Chloride 92 L (98-107) mmol/L Carbon Dioxide 37 H (22-30) mmol/L BUN 55 H (7-17) mg/dL Creatinine 2.07 H (0.52-1.04) mg/dL Glucose 211 H (74-99) mg/dL POC Glucose (mg/dL) 235 H 168 H (75-99) mg/dL Hemoglobin A1c (0.0-6.0) % Assessment and Plan Assessment: 1. Acute kidney injury, ATN secondary to cardiorenal syndrome, nonoliguric, improving. Serum creatinine was staying at about 2.3-2.2 mg/dL. today it is down to 2.0 mg/dL. Patient is back on IV Lasix which we can continue. No evidence of obstruction on ultrasound. Patient has a French catheter 2. Chronic kidney disease NKF stage IIIB with baseline creatinine 1.2-1.4 in August 2019, etiology is diabetic kidney disease 3. Acute on chronic diastolic CHF with moderate to severe pulmonary hypertension 4. Acute hypoxic respiratory failure 5. Fluid overload 6. Anemia of chronic disease with iron deficiency receiving IV iron 7. Urine retention currently with French catheter Plan: Continue with IV Lasix Encourage increased oral intake Add angiotensin receptor blockers if blood pressure remains elevated. Patient was on Cozaar at home. Expect improvement in blood pressure as steroids are tapered off
[2021-12-30 16:21] LABS: Glucose,Whole Blood 492 mg/dL (75-99)
[2021-12-30] MEDS: carvediloL 12.5 MG TAB PO SCH (16:58)
[2021-12-30 20:14] LABS: Glucose,Whole Blood 387 mg/dL (75-99)
[2021-12-30] MEDS ORDERED: INSULIN ASPART (NovoLOG) 100 UNIT/ML VIAL SQ ONE (20:35)
[2021-12-30] MEDS: MONTELUKAST 10 MG TAB PO SCH (20:49)
[2021-12-30] MEDS: PRAVASTATIN SODIUM 40 MG TAB PO SCH (20:49)
[2021-12-30] MEDS: SERTRALINE 100 MG TAB PO SCH (20:49)
[2021-12-30] MEDS: LORazepam 2 MG/ML INJ IV PRN (20:50)
[2021-12-31] MEDS: hydrALAZINE HCL 50 MG TAB PO SCH ×3 (00:49→17:05)
[2021-12-31] MEDS: methylPREDNISolone SOD SUCCI 40 MG/ML 1 ML VIAL IV SCH ×3 (00:49→17:05)
[2021-12-31 07:28] LABS: Glucose,Whole Blood 216 mg/dL (75-99)
[2021-12-31] MEDS: LEVOTHYROXINE 88 MCG TAB PO SCH (07:28)
[2021-12-31] MEDS: carvediloL 12.5 MG TAB PO SCH ×2 (07:28→17:05)
[2021-12-31] MEDS: INSULIN DETEMIR (LEVEMIR) 100 UNIT/ML SYR SQ SCH (07:29)
[2021-12-31] MEDS: INSULIN ASPART (NovoLOG) 100 UNIT/ML VIAL SQ SCH ×4 (07:29→21:44)
[2021-12-31 07:30] LABS: Calcium 9.1 mg/dL (8.4-10.2); Potassium 5.3 mmol/L (3.5-5.1)
[2021-12-31] MEDS: IPRATROPIUM-ALBUTEROL 3 ML NEB INHALATION SCH ×4 (08:35→20:13)
[2021-12-31] MEDS: SYMBICORT 160-4.5 MCG INHALER INHALATION SCH ×2 (08:35→20:13)
[2021-12-31] MEDS: HEPARIN SODIUM,PORCINE/PF 5,000 UNIT/0.5 ML SYRINGE SQ SCH ×2 (08:37→21:43)
[2021-12-31] MEDS: amLODIPine 10 MG TAB PO SCH (08:37)
[2021-12-31] MEDS: FUROSEMIDE 10 MG/ML 4 ML VIAL IV SCH (08:37)
[2021-12-31] MEDS: busPIRone HCl 5 MG TAB PO SCH ×2 (08:37→21:43)
[2021-12-31] MEDS: THYROID, PORK 30 MG TAB PO SCH (08:37)
[2021-12-31] MEDS: TAMSULOSIN 0.4 MG CAP.ER.24H PO SCH (08:37)
[2021-12-31] MEDS: ISOSORBIDE MONONITRATE ER 30 MG TAB.ER.24H PO SCH (08:37)
--- NOTE | 2021-12-31 11:25 | P.PN ---
Subjective Progress Note Date: 12/31/21 Principal diagnosis: this is a 71-year-old female seen in consultation because of acute kidney injury secondary to cardiorenal syndrome. she is responding to Lasix with improvement in her shortness of breath. Her appetite is good no fever chills nausea vomiting diarrhea she is known with pulmonary hypertension , urinary retention , chronic kidney disease stage IIIB Baseline creatinine 1.4 in August 2019 with diabetic nephropathy. Objective - Vital Signs Vital signs: Vital Signs Temp 98.2 F 12/30/21 20:45 Pulse 90 12/31/21 08:48 Resp 18 12/31/21 08:48 BP 140/76 12/31/21 08:00 Pulse Ox 99 12/31/21 08:36 Intake & Output 12/30/21 12/31/21 12/31/21 18:59 06:59 18:59 Intake Total 480 118 Output Total 1500 600 0 Balance -1020 -600 118 Intake: Oral 480 118 Output: Urine 1500 600 Stool 0 Other: Voiding Method Indwelling Catheter Indwelling Catheter Indwelling Catheter family on exam awake alert oriented comfortable no facial asymmetry no JVD lungs are clear to auscultation fair air entry bilaterally Heart sounds unremarkable for any murmur rub gallop Abdomen soft nontender Extremity exam was trace edema Neurologically awake alert oriented - Labs CBC & Chem 7: 12/25/21 10:29 12/31/21 07:01 Labs: Abnormal Lab Results - Last 24 Hours (Table) 12/30/21 12/30/21 12/30/21 Range/Units 12:02 16:19 20:11 Sodium (137-145) mmol/L Potassium (3.5-5.1) mmol/L Chloride (98-107) mmol/L Carbon Dioxide (22-30) mmol/L BUN (7-17) mg/dL Creatinine (0.52-1.04) mg/dL Glucose (74-99) mg/dL POC Glucose (mg/dL) 168 H 492 H 387 H (75-99) mg/dL 12/31/21 12/31/21 Range/Units 07:01 07:26 Sodium 136 L (137-145) mmol/L Potassium 5.3 H (3.5-5.1) mmol/L Chloride 93 L (98-107) mmol/L Carbon Dioxide 38 H (22-30) mmol/L BUN 62 H (7-17) mg/dL Creatinine 1.97 H (0.52-1.04) mg/dL Glucose 208 H (74-99) mg/dL POC Glucose (mg/dL) 216 H (75-99) mg/dL Assessment and Plan Assessment: impression 1. acute kidney injury seconndary to cardiorenal syndrome improving with Lasix IV 40 mg every 12 with good urine output creatinine going down from a peak of 2.45-1.97 this morning 2. Chronic kidney disease diabetic nephropathy is CK D stage III B , creatinine 1.68 on 12/17/2021 3. Mild hyper kalemia , secondary to chronic kidney disease. Potassium is 5.3 4. metabolic alkalosis from diuresis bicarb is 38. 5. hemoglobin is 8.2 as of 12/25/2021 rule out iron deficiency. iron saturation was 6% on 12/19/2021 Recommendation 1. reduce IV Lasix to 20 every 12 because of the metabolic alkalosis 2. check iron saturation and replenish as needed
[2021-12-31 11:29] LABS: Glucose,Whole Blood 355 mg/dL (75-99)
--- NOTE | 2021-12-31 12:53 | P.PN ---
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 She is currently sitting up in bed. Awake and alert in no acute distress. She is still requiring 10 L high flow nasal cannula to maintain O2 saturation in the 90s. Currently at 94%. Alternating with BiPAP 12/6 and 50% FiO2. No worsening shortness of breath, cough or congestion. Chest x-ray continues to show mild cardiomegaly with bilateral diffuse reticular nodular infiltrates/edema. Persistent left greater than right bibasilar acute infiltrate/atelectasis. Small bilateral pleural effusions. No significant change from previous. Urine culture was positive for Enterococcus faecalis. Blood glucose 104. She is continued on DuoNeb inhalations, Symbicort, Singulair. Heparin for DVT prophylaxis. She is given additional Lasix 40 mg IVP 1 today. BMP pending. She's currently in a -500 ML balance. French catheter remains in place. The patient is seen today 12/29/2021 in follow-up on the selective care unit. She is currently awake and alert in no acute distress. Sitting up in bed. Cur rently maintaining O2 saturations in the 90s on 8 L high flow nasal cannula. She denies any worsening shortness of breath, cough or congestion. She is maintained on DuoNeb inhalations, Symbicort, Singulair, IV Solu-Medrol. Heparin for DVT prophylaxis. Sodium 138. Potassium 5.2. Bicarb 34. BUN 52. Creatinine 2.2. Glucose 204. She is currently in a negative 900 ML balance. The patient is seen today 12/31/2021 in follow-up on the selective care unit. She is currently sitting up in a chair at the bedside. Awake and alert in no acute distress. Maintaining O2 saturations in the high 90s on 8 L high flow nasal cannula. She denies any worsening shortness of breath, cough or congest ion. She is continued on Symbicort, DuoNeb inhalations, IV Solu-Medrol. She remains on IV diuretics. Currently in a -1.6 L balance. Heparin for DVT prophylaxis. Objective - Vital Signs Vital signs: Vital Signs Temp 98.2 F 12/30/21 20:45 Pulse 81 12/31/21 12:12 Resp 16 12/31/21 12:12 BP 146/67 12/31/21 12:12 Pulse Ox 96 12/31/21 12:12 Intake & Output 12/30/21 12/31/21 12/31/21 18:59 06:59 18:59 Intake Total 480 118 Output Total 1500 600 0 Balance -1020 -600 118 Intake: Oral 480 118 Output: Urine 1500 600 Stool 0 Other: Voiding Method Indwelling Catheter Indwelling Catheter Indwelling Catheter - Exam GENERAL EXAM: Awake, alert 71-year-old female, up in a chair at the bedside, currently on 8 L of oxygen pulse ox is 91% does not appear to be in any acute distress. HEAD: Normocephalic/atraumatic. EYES: Normal reaction of pupils, equal size. Conjunctiva pink, sclera white. NOSE: Clear with pink turbinates. THROAT: No erythema or exudates. NECK: No masses, no JVD, no thyroid enlargement, no adenopathy. CHEST: No chest wall deformity. Symmetrical expansion. LUNGS: Diminished air entry with crackles in the bilateral bases. CVS: Regular rate and rhythm, normal S1 and S2, no gallops, no murmurs, no rubs ABDOMEN: Soft, nontender. No hepatosplenomegaly, normal bowel sounds, no guarding or rigidity. EXTREMITIES: No clubbing, no edema, no cyanosis, 2+ pulses and upper and lower extremities. MUSCULOSKELETAL: Muscle strength and tone normal. SPINE: No scoliosis or deformity SKIN: No rashes CENTRAL NERVOUS SYSTEM: No focal deficits, tone is normal in all 4 extremities. PSYCHIATRIC: Alert and oriented -3. Appropriate affect. Intact judgment and insight. - Labs CBC & Chem 7: 12/25/21 10:29 12/31/21 07:01 Labs: Abnormal Lab Results - Last 24 Hours (Table) 12/30/21 12/30/21 12/31/21 Range/Units 16:19 20:11 07:01 Sodium 136 L (137-145) mmol/L Potassium 5.3 H (3.5-5.1) mmol/L Chloride 93 L (98-107) mmol/L Carbon Dioxide 38 H (22-30) mmol/L BUN 62 H (7-17) mg/dL Creatinine 1.97 H (0.52-1.04) mg/dL Glucose 208 H (74-99) mg/dL POC Glucose (mg/dL) 492 H 387 H (75-99) mg/dL 12/31/21 12/31/21 Range/Units 07:26 11:27 Sodium (137-145) mmol/L Potassium (3.5-5.1) mmol/L Chloride (98-107) mmol/L Carbon Dioxide (22-30) mmol/L BUN (7-17) mg/dL Creatinine (0.52-1.04) mg/dL Glucose (74-99) mg/dL POC Glucose (mg/dL) 216 H 355 H (75-99) mg/dL Assessment and Plan Assessment: 1 Acute on chronic hypoxic respiratory failure, related to acute exacerbation of CHF with diastolic dysfunction, gentle diuresis and the patient is being kept in a negative fluid balance. Last chest x-ray was still showing evidence of pulmonary edema. He was given Lasix twice a day. Remains in a negative balance. 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, after which patient had been maintained on 8 L of oxygen since September 2021 3 Prior history of acute respiratory distress syndrome requiring prolonged intubation and mechanical ventilation and eventual tracheostomy tube insertion with subsequent decannulation 4 History of severe COPD, the baseline FEV1 of 41% of predicted 5 History of hypothyroidism 6 History of diabetes mellitus type 2 7 History of hypertension 8 Previous COVID-19 infection in September 2021 9 Chronic kidney disease stage IIIB with a component of an acute kidney injury possibly secondary to diuretics, improving 10 Moderately severe pulmonary hypertension 11 Morbid obesity with BMI of 42 kg/m 12 Acute urinary tract infection related to enterococcus faecalis, currently on daptomycin, initially treated with Levaquin Plan: The patient was seen and evaluated Labs reviewed Currently on 8 L high flow nasal cannula Alternating with BiPAP 12/6 and 50% FiO2 Increase her activity as tolerated Titrate down the FiO2 as tolerated Continue IV diuretics Continue IV Solu-Medrol, bronchodilators Follow-up chest x-ray in a.m. Discharge planning in place Being evaluated for home BiPAP We will continue to follow I have personally seen and examined the patient, performed the documentation and the assessment and plan as written. Number of minutes spent on the visit: 10.
--- NOTE | 2021-12-31 15:24 | P.PN ---
Subjective Progress Note Date: 12/31/21 PROGRESS NOTE The patient is a 71-year-old female with a known history of COPD, obesity who presented was progressive dyspnea. She had COVID-19 infection in September. She was diuresed and is feeling better at this time. Her breathing is better and her cough has improved. She is ambulating. She denies any dizziness or palpitations. Her O2 saturation has been stable. She continues to be on amlodipine 10 mg daily, Coreg 25 mg twice a day, Lasix 20 mg every 12 hours IV, hydralazine 100 mg every 8 hours, Imdur 30 mg daily, pravastatin PHYSICAL EXAMINATION: Blood pressure 146/60 heart rate 80 LUNGS: [Clear to auscultation with mild decrease in the breath sounds but no wheezes] HEART: [Regular rate and rhythm, S1, S2. No S3. systolic murmur at the base] ABDOMEN: [Soft, nontender, no organomegaly] EXTREMETIES: [No edema] LAB: Potassium 5.3, BUN 62, creatinine 1.97 IMPRESSION: 1. Worsening dyspnea with exacerbation of COPD, improving 2. Congestive heart failure with preserved systolic function stable 3. Aortic stenosis 4. Chronic kidney disease PLAN: 1. Continue present therapy 2. If stable changed to oral diuretics tomorrow 3. Increase physical activity. Objective - Vital Signs Vital signs: Vital Signs Temp 98.2 F 12/30/21 20:45 Pulse 81 12/31/21 12:12 Resp 16 12/31/21 12:12 BP 146/67 12/31/21 12:12 Pulse Ox 96 12/31/21 12:12 Intake & Output 12/30/21 12/31/21 12/31/21 18:59 06:59 18:59 Intake Total 480 118 Output Total 1500 600 0 Balance -1020 -600 118 Intake: Oral 480 118 Output: Urine 1500 600 Stool 0 Other: Voiding Method Indwelling Catheter Indwelling Catheter Indwelling Catheter - Labs CBC & Chem 7: 12/25/21 10:29 12/31/21 07:01 Labs: Abnormal Lab Results - Last 24 Hours (Table) 12/30/21 12/30/21 12/31/21 Range/Units 16:19 20:11 07:01 Sodium 136 L (137-145) mmol/L Potassium 5.3 H (3.5-5.1) mmol/L Chloride 93 L (98-107) mmol/L Carbon Dioxide 38 H (22-30) mmol/L BUN 62 H (7-17) mg/dL Creatinine 1.97 H (0.52-1.04) mg/dL Glucose 208 H (74-99) mg/dL POC Glucose (mg/dL) 492 H 387 H (75-99) mg/dL 12/31/21 12/31/21 Range/Units 07:26 11:27 Sodium (137-145) mmol/L Potassium (3.5-5.1) mmol/L Chloride (98-107) mmol/L Carbon Dioxide (22-30) mmol/L BUN (7-17) mg/dL Creatinine (0.52-1.04) mg/dL Glucose (74-99) mg/dL POC Glucose (mg/dL) 216 H 355 H (75-99) mg/dL
--- NOTE | 2021-12-31 16:21 | P.PN ---
Subjective This is a pleasant 71 years old female with past medical history of Diabetes Mellitus, Hypertension, COPD with established FEV1 of 41% of predicted,history of morbid obesity. Patient recently diagnosed with covid last September with chronic hypoxic respiratory failure. She is on 4-5 L/m of oxygen but since she got Covid her oxygen requirements went up to 6-9 L/m at home as she states. Her senior commissions analyst is Dr. Cunningham. Presents because of dyspnea of 2 days' duration, no paroxysmal nocturnal dyspnea or orthopnea. She denies chest pain but she has little cough and plastic drain phlegm but this is a chronic. She denies abdominal pain or vomiting or diarrhea. No dysuria or urgency. No headache or dizziness or weakness or numbness. She quit smoking. No alcohol or illicit drugs. She has chronic gait instability, she cannot walk for long distances because of her breathing pattern. On admission patient is hypoxic, she is saturating 95% on Evelyn, oxygen via nasal cannula CBC showed only mild anemia 9.1 and mild thrombocytopenia at 145 with normal WBC. D-dimer is normal 0.56. INR 0.9 Creatinine elevated 1.7, compared to baseline of 1.1-1.3 Chest x-ray: Pulmonary vascular congestion and pleural effusions. CHF EKG showing normal sinus rhythm at [address]-T changes. Echocardiogram on 2019: Showed a preserved ejection fraction of 55-60% In the emergency room patient was started on IV Lasix and echocardiogram was ordered 12/18/2021 Patient is awake and alert and she reports improvement in her breathing pattern and her oxygen requirement done down from 10 down to 8 L/m. She feels easier to bring as well. Blood pressure is better controlled after adding metoprolol, currently 140/61. No labs from today. Ejection fraction showed 55-60% with moderate to severe pulmonary hypertension. Also patient has evidence of UTI, she is ALLERGIC to penicillin and she was started on Levaquin Resume the care of the patient today covering for Dr. Banks team over the weekend 12/31/2021 Patient admitted with the current active problem of heart failure signs COPD exacerbation and currently before closing by tow feeder and senior commissions analyst, she is kept on Solu-Medrol 40 mg and Lasix IV 20 mg twice a day Lantus patient to oral dose tomorrow because of the improvement and metabolic alkalosis. Patient also followed closely by skein winding operator for her acute on chronic kidney disease, creatinine today 1.9, fluctuant during her stay 1.8 Patient reports improvement in her breathing and she easier every day but slowly and gradually improving. Oxygen requirement to 6 L per minute. Hemoglobin 8.2. Objective - Vital Signs Vital signs: Vital Signs Temp 98.2 F 12/30/21 20:45 Pulse 81 12/31/21 12:12 Resp 16 12/31/21 12:12 BP 146/67 12/31/21 12:12 Pulse Ox 96 12/31/21 12:12 Intake & Output 12/30/21 12/31/21 12/31/21 18:59 06:59 18:59 Intake Total 480 118 Output Total 1500 600 0 Balance -1020 -600 118 Intake: Oral 480 118 Output: Urine 1500 600 Stool 0 Other: Voiding Method Indwelling Catheter Indwelling Catheter Indwelling Catheter - Exam -GENERAL: The patient is alert and oriented x3, not in any acute distress. Obese with BMI of 39.9 HEENT: Pupils are round and equally reacting to light. EOMI. No scleral icterus. No conjunctival pallor. Normocephalic, atraumatic. No pharyngeal erythema. No thyromegaly. CARDIOVASCULAR: S1 and S2 present. No murmurs, rubs, or gallops. -PULMONARY: Chest is clear to auscultation, no wheezing . Bilateral basal crepitation ABDOMEN: Soft, nontender, nondistended, normoactive bowel sounds. No palpable organomegaly. MUSCULOSKELETAL: No joint swelling or deformity. -EXTREMITIES: No cyanosis, clubbing, Bilateral pitting leg edema NEUROLOGICAL: Gross neurological examination did not reveal any focal deficits. SKIN: No rashes. No petechiae - Labs CBC & Chem 7: 12/25/21 10:29 12/31/21 07:01 Labs: Abnormal Lab Results - Last 24 Hours (Table) 12/30/21 12/30/21 12/31/21 Range/Units 16:19 20:11 07:01 Sodium 136 L (137-145) mmol/L Potassium 5.3 H (3.5-5.1) mmol/L Chloride 93 L (98-107) mmol/L Carbon Dioxide 38 H (22-30) mmol/L BUN 62 H (7-17) mg/dL Creatinine 1.97 H (0.52-1.04) mg/dL Glucose 208 H (74-99) mg/dL POC Glucose (mg/dL) 492 H 387 H (75-99) mg/dL 12/31/21 12/31/21 Range/Units 07:26 11:27 Sodium (137-145) mmol/L Potassium (3.5-5.1) mmol/L Chloride (98-107) mmol/L Carbon Dioxide (22-30) mmol/L BUN (7-17) mg/dL Creatinine (0.52-1.04) mg/dL Glucose (74-99) mg/dL POC Glucose (mg/dL) 216 H 355 H (75-99) mg/dL Assessment and Plan Assessment: New-onset Acute congestive heart failure, diastolic with ejection fraction 55- 60% COPD with exacerbation Acute kidney injury, on chronic kidney disease Acute and chronic hypoxic respiratory failure Acute urinary tract infection, sufficiently treated Moderate to severe pulmonary hypertension Recent diagnosis of Covid 19 on September/2021 Chronic kidney disease stage III. Mostly diabetic nephropathy Diabetes mellitus Morbid obesity with BMI 39.9 Plan: This is a pleasant 71 years old female who presents with CHF Continue with IV Lasix and monitor input and output and electrolytes and creatinine Cardiology consult, pulmonary consult Continue with insulin and monitor glucose Labs and medication were reviewed.. Continue same treatment. Continue with symptomatic treatment. Resume home medication. Monitor lytes and vitals. DVT and GI prophylaxis. Further recommendations depends on the clinical course of the patient DVT prophylaxis: Subcutaneous heparin GI Prophylaxis: Pepcid PT/OT: Pending Prognosis is guarded
[2021-12-31 16:26] LABS: Glucose,Whole Blood 267 mg/dL (75-99)
[2021-12-31] MEDS: FUROSEMIDE 10 MG/ML 2 ML VIAL IV SCH (17:05)
[2021-12-31 20:02] LABS: Glucose,Whole Blood 298 mg/dL (75-99)
[2021-12-31] MEDS ORDERED: traMADol 50 MG TAB PO PRN (21:28)
[2021-12-31] MEDS ORDERED: INSULIN ASPART (NovoLOG) 100 UNIT/ML VIAL SQ ONE (21:38)
[2021-12-31] MEDS: PRAVASTATIN SODIUM 40 MG TAB PO SCH (21:43)
[2021-12-31] MEDS: MONTELUKAST 10 MG TAB PO SCH (21:43)
[2021-12-31] MEDS: SERTRALINE 100 MG TAB PO SCH (21:43)
[2021-12-31] MEDS: LORazepam 2 MG/ML INJ IV PRN (21:44)
[2022-01-01] MEDS: hydrALAZINE HCL 50 MG TAB PO SCH ×3 (01:17→17:00)
[2022-01-01] MEDS: methylPREDNISolone SOD SUCCI 40 MG/ML 1 ML VIAL IV SCH ×4 (01:17→23:29)
[2022-01-01 07:11] LABS: Glucose,Whole Blood 304 mg/dL (75-99)
[2022-01-01] MEDS: carvediloL 12.5 MG TAB PO SCH ×2 (07:13→17:00)
[2022-01-01] MEDS: LEVOTHYROXINE 88 MCG TAB PO SCH (07:14)
[2022-01-01] MEDS: INSULIN ASPART (NovoLOG) 100 UNIT/ML VIAL SQ SCH ×4 (07:14→20:33)
[2022-01-01] MEDS: INSULIN DETEMIR (LEVEMIR) 100 UNIT/ML SYR SQ SCH (07:14)
[2022-01-01] MEDS: IPRATROPIUM-ALBUTEROL 3 ML NEB INHALATION SCH ×4 (08:21→19:46)
[2022-01-01] MEDS: SYMBICORT 160-4.5 MCG INHALER INHALATION SCH ×2 (08:21→19:52)
[2022-01-01] MEDS: ISOSORBIDE MONONITRATE ER 30 MG TAB.ER.24H PO SCH (08:49)
[2022-01-01] MEDS: TAMSULOSIN 0.4 MG CAP.ER.24H PO SCH (08:49)
[2022-01-01] MEDS: THYROID, PORK 30 MG TAB PO SCH (08:49)
[2022-01-01] MEDS: amLODIPine 10 MG TAB PO SCH (08:49)
[2022-01-01] MEDS: HEPARIN SODIUM,PORCINE/PF 5,000 UNIT/0.5 ML SYRINGE SQ SCH ×2 (08:50→20:32)
[2022-01-01] MEDS: ERGOCALCIFEROL 1,250 MCG (50,000 IU) CAPSULE PO SCH (08:50)
[2022-01-01] MEDS: busPIRone HCl 5 MG TAB PO SCH ×2 (08:50→20:33)
[2022-01-01] MEDS: FUROSEMIDE 10 MG/ML 2 ML VIAL IV SCH (08:50)
[2022-01-01 09:58] LABS: Anisocytosis Slight; Basophils % (A) 0 %; Eosinophils % (A) 0 %; HCT 29.2 % (34.0-46.0); HGB 8.3 gm/dL (11.4-16.0); Hypochromasia Marked; Lymphocytes # (A) 0.3 k/uL (1.0-4.8); Lymphocytes % (A) 5 %; MCH 24.8 pg (25.0-35.0); MCHC 28.5 g/dL (31.0-37.0); MCV 86.8 fL (80.0-100.0); Mean Platelet Volume 8.2; Monocytes # (A) 0.2 k/uL (0-1.0); Monocytes % (A) 4 %; Neutrophils # (A) 4.7 k/uL (1.3-7.7); Neutrophils % (A) 91 %; Platelet Count 124 k/uL (150-450); RBC 3.36 m/uL (3.80-5.40); RDW 16.5 % (11.5-15.5); WBC 5.1 k/uL (3.8-10.6)
--- NOTE | 2022-01-01 10:03 | P.PN ---
Subjective Progress Note Date: 01/01/22 Principal diagnosis: this is a 71-year-old female seen in consultation because of acute kidney injury secondary to cardiorenal syndrome. she is responding to Lasix with improvement in her shortness of breath. Her appetite is good no fever chills nausea vomiting diarrhea His on Lasix 20 every 12 IV and her urine output is recorded as 105 0 mL. Creatinine has improved as of yesterday to 1.97, from a peak of 2.45 bicarbonate has gone up to 38 from diuresis subjectively feeling much better good appetite no chest pain shortness of breath dizziness. Additionally she is known with pulmonary hypertension , urinary retention , chronic kidney disease stage IIIB Baseline creatinine 1.4 in August 2019 with diabetic nephropathy. Objective - Vital Signs Vital signs: Vital Signs Temp 98.1 F 12/31/21 20:50 Pulse 88 01/01/22 08:31 Resp 18 01/01/22 08:31 BP 165/78 01/01/22 08:00 Pulse Ox 95 01/01/22 08:21 Intake & Output 12/31/21 01/01/22 01/01/22 18:59 06:59 18:59 Intake Total 354 340 Output Total 0 1050 Balance 354 -1050 340 Intake: Oral 354 340 Output: Urine 1050 Stool 0 Other: Voiding Method Indwelling Catheter Indwelling Catheter # Voids 1 On examination awake alert oriented comfortable. She is on nasal cannula oxygen No JVP noted Lungs are significant for an occasional coarse crackle at bases fair air entry bilaterally Heart sounds unremarkable for any murmur rub gallop Abdomen soft nontender Extreme exam was trace edema Neurologically awake alert oriented - Labs CBC & Chem 7: 12/25/21 10:29 12/31/21 07:01 Labs: Abnormal Lab Results - Last 24 Hours (Table) 12/31/21 12/31/21 12/31/21 Range/Units 11:27 16:24 19:44 POC Glucose (mg/dL) 355 H 267 H 298 H (75-99) mg/dL 01/01/22 Range/Units 07:10 POC Glucose (mg/dL) 304 H (75-99) mg/dL Assessment and Plan Assessment: impression 1. acute kidney injury seconndary to cardiorenal syndrome improving with Lasix IV 20 mg every 12 with good urine output creatinine going down from a peak of 2.45-1.97 yesterday lasted pending 2. Chronic kidney disease diabetic nephropathy is CK D stage III B , creatinine 1.68 on 12/17/2021 3. Mild hyper kalemia , secondary to chronic kidney disease. Potassium is 5.3 4. metabolic alkalosis from diuresis bicarb is 38. 5. hemoglobin is 8.2 as of 12/25/2021 6. Iron deficiency iron saturation was 6% on 12/19/2021 Recommendation 1. Change IV Lasix to by mouth torsemide 20 mg as she may need to be discharged soon 2. IV Ferrlecit 125 mg today and tomorrow
[2022-01-01 10:15] LABS: Calcium 8.8 mg/dL (8.4-10.2); Potassium 5.2 mmol/L (3.5-5.1)
[2022-01-01 11:46] LABS: Glucose,Whole Blood 275 mg/dL (75-99)
[2022-01-01] MEDS: SODIUM FERRIC GLUCONAT-SUCROSE 125 MG in SODIUM CHLORIDE 0.9% 100 ML IVPB SCH (12:38)
[2022-01-01] MEDS: TORSEMIDE 20 MG TAB PO SCH (12:38)
--- NOTE | 2022-01-01 14:58 | P.PN ---
Subjective Progress Note Date: 01/01/22 PROGRESS NOTE The patient is a 71-year-old female with a known history of COPD, obesity who presented was progressive dyspnea. She had COVID-19 infection in September. She was diuresed and is feeling better at this time. Her breathing is better and her cough has improved. She is ambulating. She denies any dizziness or palpitations. Her O2 saturation has been stable. She continues to be on amlodipine 10 mg daily, Coreg 25 mg twice a day, Lasix 20 mg every 12 hours IV, hydralazine 100 mg every 8 hours, Imdur 30 mg daily, pravastatin January 01: She feels better today, her breathing is better, her energy is better. She denies any chest discomfort, no nausea or vomiting. Hemodynamically she is stable. She denies any dizziness or palpitations. She is sitting up in the chair. She continues to be on Coreg 25 mg twice a day hydralazine 100 mg 3 times a day, isosorbide mononitrate 30 mg daily, pravastatin 40 mg daily and Demadex 20 mg daily changed today. PHYSICAL EXAMINATION: Blood pressure 146/60 heart rate 80 LUNGS: [Clear to auscultation with mild decrease in the breath sounds but no wheezes] HEART: [Regular rate and rhythm, S1, S2. No S3. systolic murmur at the base] ABDOMEN: [Soft, nontender, no organomegaly] EXTREMETIES: [No edema] LAB: Potassium 5.2, BUN 73 and creatinine 1.98 IMPRESSION: 1. Worsening dyspnea with exacerbation of COPD, improving 2. Congestive heart failure with preserved systolic function stable 3. Aortic stenosis 4. Chronic kidney disease PLAN: 1. Continue present therapy 2. Follow renal functions 3. Increase physical activity 4. Probable discharge in 24 hours. Objective - Vital Signs Vital signs: Vital Signs Temp 98.1 F 12/31/21 20:50 Pulse 90 01/01/22 11:52 Resp 18 01/01/22 11:52 BP 165/78 01/01/22 08:00 Pulse Ox 95 01/01/22 08:21 Intake & Output 12/31/21 01/01/22 01/01/22 18:59 06:59 18:59 Intake Total 354 340 Output Total 0 1050 0 Balance 354 -1050 340 Intake: Oral 354 340 Output: Urine 1050 Stool 0 0 Other: Voiding Method Indwelling Catheter Indwelling Catheter External Catheter # Voids 1 - Labs CBC & Chem 7: 01/01/22 09:07 01/01/22 09:07 Labs: Abnormal Lab Results - Last 24 Hours (Table) 12/31/21 12/31/21 01/01/22 Range/Units 16:24 19:44 07:10 RBC (3.80-5.40) m/uL Hgb (11.4-16.0) gm/dL Hct (34.0-46.0) % MCH (25.0-35.0) pg MCHC (31.0-37.0) g/dL RDW (11.5-15.5) % Plt Count (150-450) k/uL Lymphocytes # (1.0-4.8) k/uL Sodium (137-145) mmol/L Potassium (3.5-5.1) mmol/L Chloride (98-107) mmol/L Carbon Dioxide (22-30) mmol/L BUN (7-17) mg/dL Creatinine (0.52-1.04) mg/dL Glucose (74-99) mg/dL POC Glucose (mg/dL) 267 H 298 H 304 H (75-99) mg/dL 01/01/22 01/01/22 01/01/22 Range/Units 09:07 09:07 11:45 RBC 3.36 L (3.80-5.40) m/uL Hgb 8.3 L (11.4-16.0) gm/dL Hct 29.2 L (34.0-46.0) % MCH 24.8 L (25.0-35.0) pg MCHC 28.5 L (31.0-37.0) g/dL RDW 16.5 H (11.5-15.5) % Plt Count 124 L (150-450) k/uL Lymphocytes # 0.3 L (1.0-4.8) k/uL Sodium 134 L (137-145) mmol/L Potassium 5.2 H (3.5-5.1) mmol/L Chloride 92 L (98-107) mmol/L Carbon Dioxide 35 H (22-30) mmol/L BUN 73 H (7-17) mg/dL Creatinine 1.98 H (0.52-1.04) mg/dL Glucose 306 H (74-99) mg/dL POC Glucose (mg/dL) 275 H (75-99) mg/dL
--- NOTE | 2022-01-01 16:04 | P.PN ---
Subjective This is a pleasant 71 years old female with past medical history of Diabetes Mellitus, Hypertension, COPD with established FEV1 of 41% of predicted,history of morbid obesity. Patient recently diagnosed with covid last September with chronic hypoxic respiratory failure. She is on 4-5 L/m of oxygen but since she got Covid her oxygen requirements went up to 6-9 L/m at home as she states. Her dried fruit washer is Dr. Cunningham. Presents because of dyspnea of 2 days' duration, no paroxysmal nocturnal dyspnea or orthopnea. She denies chest pain but she has little cough and plastic drain phlegm but this is a chronic. She denies abdominal pain or vomiting or diarrhea. No dysuria or urgency. No headache or dizziness or weakness or numbness. She quit smoking. No alcohol or illicit drugs. She has chronic gait instability, she cannot walk for long distances because of her breathing pattern. On admission patient is hypoxic, she is saturating 95% on Evelyn, oxygen via nasal cannula CBC showed only mild anemia 9.1 and mild thrombocytopenia at 145 with normal WBC. D-dimer is normal 0.56. INR 0.9 Creatinine elevated 1.7, compared to baseline of 1.1-1.3 Chest x-ray: Pulmonary vascular congestion and pleural effusions. CHF EKG showing normal sinus rhythm at [address]-T changes. Echocardiogram on 2019: Showed a preserved ejection fraction of 55-60% In the emergency room patient was started on IV Lasix and echocardiogram was ordered 12/18/2021 Patient is awake and alert and she reports improvement in her breathing pattern and her oxygen requirement done down from 10 down to 8 L/m. She feels easier to bring as well. Blood pressure is better controlled after adding metoprolol, currently 140/61. No labs from today. Ejection fraction showed 55-60% with moderate to severe pulmonary hypertension. Also patient has evidence of UTI, she is ALLERGIC to penicillin and she was started on Levaquin 12/31/2021 Patient admitted with the current active problem of heart failure signs COPD exacerbation and currently before closing by blanket winder helper and dried fruit washer, she is kept on Solu-Medrol 40 mg and Lasix IV 20 mg twice a day Lantus patient to oral dose tomorrow because of the improvement and metabolic alkalosis. Patient also followed closely by jig bore tool maker for her acute on chronic kidney disease, creatinine today 1.9, fluctuant during her stay 1.8 Patient reports improvement in her breathing and she easier every day but slowly and gradually improving. Oxygen requirement to 6 L per minute. Hemoglobin 8.2. 01/01/2022 patient clinically looks the same and stable, she looks a pleasant comfortable, she denies any specific symptoms, she still on 6 L oxygen via nasal cannula Glucose is around 300 and she is on Levemir 15 units increased to 20 units from tomorrow. Hemoglobin stable 8.3, creatinine 1.9, potassium 5.2, sodium 134, platelets 120 4J IV Lasix change to by mouth torsemide She's continue on IV Solu-Medrol Objective - Vital Signs Vital signs: Vital Signs Temp 98.1 F 12/31/21 20:50 Pulse 90 01/01/22 11:52 Resp 18 01/01/22 11:52 BP 165/78 01/01/22 08:00 Pulse Ox 95 01/01/22 08:21 Intake & Output 12/31/21 01/01/22 01/01/22 18:59 06:59 18:59 Intake Total 354 340 Output Total 0 1050 0 Balance 354 -1050 340 Intake: Oral 354 340 Output: Urine 1050 Stool 0 0 Other: Voiding Method Indwelling Catheter Indwelling Catheter External Catheter # Voids 1 - Exam -GENERAL: The patient is alert and oriented x3, not in any acute distress. Obese with BMI of 39.9 HEENT: Pupils are round and equally reacting to light. EOMI. No scleral icterus. No conjunctival pallor. Normocephalic, atraumatic. No pharyngeal erythema. No thyromegaly. CARDIOVASCULAR: S1 and S2 present. No murmurs, rubs, or gallops. -PULMONARY: Chest is clear to auscultation, no wheezing . Bilateral basal crepitation ABDOMEN: Soft, nontender, nondistended, normoactive bowel sounds. No palpable organomegaly. MUSCULOSKELETAL: No joint swelling or deformity. -EXTREMITIES: No cyanosis, clubbing, Bilateral pitting leg edema NEUROLOGICAL: Gross neurological examination did not reveal any focal deficits. SKIN: No rashes. No petechiae - Labs CBC & Chem 7: 01/01/22 09:07 01/01/22 09:07 Labs: Abnormal Lab Results - Last 24 Hours (Table) 12/31/21 12/31/21 01/01/22 Range/Units 16:24 19:44 07:10 RBC (3.80-5.40) m/uL Hgb (11.4-16.0) gm/dL Hct (34.0-46.0) % MCH (25.0-35.0) pg MCHC (31.0-37.0) g/dL RDW (11.5-15.5) % Plt Count (150-450) k/uL Lymphocytes # (1.0-4.8) k/uL Sodium (137-145) mmol/L Potassium (3.5-5.1) mmol/L Chloride (98-107) mmol/L Carbon Dioxide (22-30) mmol/L BUN (7-17) mg/dL Creatinine (0.52-1.04) mg/dL Glucose (74-99) mg/dL POC Glucose (mg/dL) 267 H 298 H 304 H (75-99) mg/dL 01/01/22 01/01/22 01/01/22 Range/Units 09:07 09:07 11:45 RBC 3.36 L (3.80-5.40) m/uL Hgb 8.3 L (11.4-16.0) gm/dL Hct 29.2 L (34.0-46.0) % MCH 24.8 L (25.0-35.0) pg MCHC 28.5 L (31.0-37.0) g/dL RDW 16.5 H (11.5-15.5) % Plt Count 124 L (150-450) k/uL Lymphocytes # 0.3 L (1.0-4.8) k/uL Sodium 134 L (137-145) mmol/L Potassium 5.2 H (3.5-5.1) mmol/L Chloride 92 L (98-107) mmol/L Carbon Dioxide 35 H (22-30) mmol/L BUN 73 H (7-17) mg/dL Creatinine 1.98 H (0.52-1.04) mg/dL Glucose 306 H (74-99) mg/dL POC Glucose (mg/dL) 275 H (75-99) mg/dL Assessment and Plan Assessment: New-onset Acute congestive heart failure, diastolic with ejection fraction 55- 60% COPD with exacerbation Acute kidney injury, on chronic kidney disease Acute and chronic hypoxic respiratory failure Acute urinary tract infection, sufficiently treated Moderate to severe pulmonary hypertension Recent diagnosis of Covid 19 on September/2021 Chronic kidney disease stage III. Mostly diabetic nephropathy Diabetes mellitus Morbid obesity with BMI 39.9 Plan: This is a pleasant 71 years old female who presents with CHF Continue with IV Lasix and monitor input and output and electrolytes and creatinine Cardiology consult, pulmonary consult Continue with insulin and decrease dose to 20 units of Levemir and monitor glucose Labs and medication were reviewed.. Continue same treatment. Continue with symptomatic treatment. Resume home medication. Monitor lytes and vitals. DVT and GI prophylaxis. Further recommendations depends on the clinical course of the patient DVT prophylaxis: Subcutaneous heparin GI Prophylaxis: Pepcid PT/OT: Pending Prognosis is guarded
[2022-01-01 16:32] LABS: % Iron Saturation 22.04 (12.00-45.00)
[2022-01-01 16:43] LABS: Glucose,Whole Blood 259 mg/dL (75-99)
[2022-01-01 20:13] LABS: Glucose,Whole Blood 343 mg/dL (75-99)
[2022-01-01] MEDS ORDERED: INSULIN ASPART (NovoLOG) 100 UNIT/ML VIAL SQ ONE (20:20)
[2022-01-01] MEDS: MONTELUKAST 10 MG TAB PO SCH (20:32)
[2022-01-01] MEDS: PRAVASTATIN SODIUM 40 MG TAB PO SCH (20:32)
[2022-01-01] MEDS: SERTRALINE 100 MG TAB PO SCH (20:32)
[2022-01-02] MEDS: hydrALAZINE HCL 50 MG TAB PO SCH ×3 (02:22→17:19)
[2022-01-02 05:07] LABS: Anisocytosis Slight; Basophils % (A) 0 %; Eosinophils % (A) 0 %; HCT 30.2 % (34.0-46.0); HGB 8.7 gm/dL (11.4-16.0); Hypochromasia Marked; Lymphocytes # (A) 0.3 k/uL (1.0-4.8); Lymphocytes % (A) 4 %; MCH 24.6 pg (25.0-35.0); MCHC 28.8 g/dL (31.0-37.0); MCV 85.5 fL (80.0-100.0); Mean Platelet Volume 7.5; Monocytes # (A) 0.2 k/uL (0-1.0); Monocytes % (A) 4 %; Neutrophils # (A) 5.6 k/uL (1.3-7.7); Neutrophils % (A) 92 %; Platelet Count 121 k/uL (150-450); RBC 3.53 m/uL (3.80-5.40); RDW 16.5 % (11.5-15.5); WBC 6.1 k/uL (3.8-10.6)
[2022-01-02 05:17] LABS: Calcium 8.8 mg/dL (8.4-10.2); Potassium 5.8 mmol/L (3.5-5.1)
[2022-01-02] MEDS: LEVOTHYROXINE 88 MCG TAB PO SCH (06:24)
[2022-01-02] MEDS ORDERED: INSULIN DETEMIR (LEVEMIR) 100 UNIT/ML SYR SQ SCH (07:00)
[2022-01-02 07:04] LABS: Glucose,Whole Blood 322 mg/dL (75-99)
[2022-01-02] MEDS: HEPARIN SODIUM,PORCINE/PF 5,000 UNIT/0.5 ML SYRINGE SQ SCH (08:10)
[2022-01-02] MEDS: INSULIN ASPART (NovoLOG) 100 UNIT/ML VIAL SQ SCH ×5 (08:10→17:19)
[2022-01-02] MEDS: amLODIPine 10 MG TAB PO SCH (08:11)
[2022-01-02] MEDS: busPIRone HCl 5 MG TAB PO SCH (08:11)
[2022-01-02] MEDS: TAMSULOSIN 0.4 MG CAP.ER.24H PO SCH (08:11)
[2022-01-02] MEDS: carvediloL 12.5 MG TAB PO SCH ×2 (08:11→17:19)
[2022-01-02] MEDS: ISOSORBIDE MONONITRATE ER 30 MG TAB.ER.24H PO SCH (08:11)
[2022-01-02] MEDS: THYROID, PORK 30 MG TAB PO SCH (08:12)
[2022-01-02] MEDS: TORSEMIDE 20 MG TAB PO SCH (08:12)
[2022-01-02] MEDS: methylPREDNISolone SOD SUCCI 40 MG/ML 1 ML VIAL IV SCH ×2 (08:38→16:05)
[2022-01-02] MEDS: IPRATROPIUM-ALBUTEROL 3 ML NEB INHALATION SCH ×3 (08:57→15:35)
[2022-01-02] MEDS: SYMBICORT 160-4.5 MCG INHALER INHALATION SCH (09:00)
--- NOTE | 2022-01-02 09:50 | P.PN ---
Subjective HISTORY OF PRESENTING ILLNESS This is a pleasant 71-year-old female past medical history significant for COPD requiring supplemental home oxygen diabetes hypertension hypothyroidism and morbid obesity. She does not follow with a taxation consultant. We have been asked to see in consultation for acute congestive heart failure. Patient was brought into the ER by her daughter for increased shortness of breath. Patient had Covid in September 2021 and since that time she has been requiring increased supplemental oxygen. She reports she has moderate exertional dyspnea. Patient started on IV Lasix in the emergency department. Echocardiogram revealed normal ejection fraction 5560 percent, mild aortic stenosis, moderate to severe pulmonary hypertension Patient seen and examined at bedside, she is doing well. Breathing has improved. She is currently maintained on PO Torsemide 20mg daily per nephrology . Good urine output. Improvement in renal function since admission. Vital signs are stable. Labs, sodium 133, potassium 5.8, BUN 84, serum current 2.05, magnesium 2.0 GENERAL: In no acute distress. NECK: Supple without JVD or thyromegaly. LUNGS: Breath sounds crackles in the bases to auscultation bilaterally. Respiration equal and unlabored. No wheezes, rales or rhonchi. HEART: Regular rate and rhythm, Systolic ejection mumur at base, No rubs or gallops. S1 and S2 heard. EXTREMITIES: No lower extremity edema. No clubbing or cyanosis. Peripheral pulses intact. NEURO: Alert and oriented x 3 ASSESSMENT Heart failure exacerbation secondary to heart failure with preserved ejection fraction Acute on Chronic kidney disease Mild Aortic stenosis COPD Type 2 diabetes Hypertension Hypothyroidism PLAN Continue present therapy Diuretics per nephrology Patient not on acei/arb due to JEWEL Continue amlodipine, hydralazine, beta fariba, statin, and imdur From a cardiology perspective, patient is stable for discharge. Follow up with Chapito Cordeor outpatient Nurse Practitioner note has been reviewed, I agree with a documented findings and plan of care. Patient was seen and examined. Objective - Vital Signs Vital signs: Vital Signs Temp 98.5 F 01/02/22 07:35 Pulse 84 01/02/22 09:12 Resp 18 01/02/22 09:39 BP 164/72 01/02/22 07:35 Pulse Ox 94 L 01/02/22 07:35 Intake & Output 01/01/22 01/02/22 01/02/22 18:59 06:59 18:59 Intake Total 340 200 Output Total 0 300 2 Balance 340 -300 198 Intake: Oral 340 200 Output: Urine 300 Stool 0 2 Other: Voiding Method External Catheter External Catheter External Catheter # Voids 1 # Bowel Movements 1 - Labs CBC & Chem 7: 01/02/22 04:29 01/02/22 04:29 Labs: Abnormal Lab Results - Last 24 Hours (Table) 01/01/22 01/01/22 01/01/22 Range/Units 09:07 09:07 11:45 RBC 3.36 L (3.80-5.40) m/uL Hgb 8.3 L (11.4-16.0) gm/dL Hct 29.2 L (34.0-46.0) % MCH 24.8 L (25.0-35.0) pg MCHC 28.5 L (31.0-37.0) g/dL RDW 16.5 H (11.5-15.5) % Plt Count 124 L (150-450) k/uL Lymphocytes # 0.3 L (1.0-4.8) k/uL Sodium 134 L (137-145) mmol/L Potassium 5.2 H (3.5-5.1) mmol/L Chloride 92 L (98-107) mmol/L Carbon Dioxide 35 H (22-30) mmol/L BUN 73 H (7-17) mg/dL Creatinine 1.98 H (0.52-1.04) mg/dL Glucose 306 H (74-99) mg/dL POC Glucose (mg/dL) 275 H (75-99) mg/dL 01/01/22 01/01/22 01/02/22 Range/Units 16:42 20:11 04:29 RBC 3.53 L (3.80-5.40) m/uL Hgb 8.7 L (11.4-16.0) gm/dL Hct 30.2 L (34.0-46.0) % MCH 24.6 L (25.0-35.0) pg MCHC 28.8 L (31.0-37.0) g/dL RDW 16.5 H (11.5-15.5) % Plt Count 121 L (150-450) k/uL Lymphocytes # 0.3 L (1.0-4.8) k/uL Sodium (137-145) mmol/L Potassium (3.5-5.1) mmol/L Chloride (98-107) mmol/L Carbon Dioxide (22-30) mmol/L BUN (7-17) mg/dL Creatinine (0.52-1.04) mg/dL Glucose (74-99) mg/dL POC Glucose (mg/dL) 259 H 343 H (75-99) mg/dL 01/02/22 01/02/22 Range/Units 04:29 06:45 RBC (3.80-5.40) m/uL Hgb (11.4-16.0) gm/dL Hct (34.0-46.0) % MCH (25.0-35.0) pg MCHC (31.0-37.0) g/dL RDW (11.5-15.5) % Plt Count (150-450) k/uL Lymphocytes # (1.0-4.8) k/uL Sodium 133 L (137-145) mmol/L Potassium 5.8 H (3.5-5.1) mmol/L Chloride 90 L (98-107) mmol/L Carbon Dioxide 36 H (22-30) mmol/L BUN 84 H (7-17) mg/dL Creatinine 2.05 H (0.52-1.04) mg/dL Glucose 304 H (74-99) mg/dL POC Glucose (mg/dL) 322 H (75-99) mg/dL
[2022-01-02] MEDS: SODIUM FERRIC GLUCONAT-SUCROSE 125 MG in SODIUM CHLORIDE 0.9% 100 ML IVPB SCH (09:54)
[2022-01-02] MEDS ORDERED: INSULIN REGULAR 100 UNIT/ML VIAL (IV) IV ONE (10:42)
[2022-01-02 10:57] LABS: Glucose,Whole Blood 413 mg/dL (75-99)
--- NOTE | 2022-01-02 11:18 | P.PN ---
Subjective Patient is seen in follow-up for acute kidney injury on chronic kidney disease. Renal function. Creatinine 2.05 today. He has an external catheter. Nonoliguric. On torsemide. No vomiting or diarrhea. On 6 L high flow cannula. Vital signs are stable. General: Awake and alert. HEENT: Head exam is unremarkable. On nasal cannula. LUNGS: Breath sounds decreased. HEART: Rate and Rhythm are regular. ABDOMEN: Soft, obese. EXTREMITITES: Trace edema. Objective - Vital Signs Vital signs: Vital Signs Temp 98.5 F 01/02/22 07:35 Pulse 84 01/02/22 09:12 Resp 18 01/02/22 09:39 BP 164/72 01/02/22 07:35 Pulse Ox 94 L 01/02/22 07:35 Intake & Output 01/01/22 01/02/22 01/02/22 18:59 06:59 18:59 Intake Total 340 200 Output Total 0 300 2 Balance 340 -300 198 Intake: Oral 340 200 Output: Urine 300 Stool 0 2 Other: Voiding Method External Catheter External Catheter External Catheter # Voids 1 # Bowel Movements 1 - Labs CBC & Chem 7: 01/02/22 04:29 01/02/22 04:29 Labs: Abnormal Lab Results - Last 24 Hours (Table) 01/01/22 01/01/22 01/01/22 Range/Units 11:45 16:42 20:11 RBC (3.80-5.40) m/uL Hgb (11.4-16.0) gm/dL Hct (34.0-46.0) % MCH (25.0-35.0) pg MCHC (31.0-37.0) g/dL RDW (11.5-15.5) % Plt Count (150-450) k/uL Lymphocytes # (1.0-4.8) k/uL Sodium (137-145) mmol/L Potassium (3.5-5.1) mmol/L Chloride (98-107) mmol/L Carbon Dioxide (22-30) mmol/L BUN (7-17) mg/dL Creatinine (0.52-1.04) mg/dL Glucose (74-99) mg/dL POC Glucose (mg/dL) 275 H 259 H 343 H (75-99) mg/dL 01/02/22 01/02/22 01/02/22 Range/Units 04:29 04:29 06:45 RBC 3.53 L (3.80-5.40) m/uL Hgb 8.7 L (11.4-16.0) gm/dL Hct 30.2 L (34.0-46.0) % MCH 24.6 L (25.0-35.0) pg MCHC 28.8 L (31.0-37.0) g/dL RDW 16.5 H (11.5-15.5) % Plt Count 121 L (150-450) k/uL Lymphocytes # 0.3 L (1.0-4.8) k/uL Sodium 133 L (137-145) mmol/L Potassium 5.8 H (3.5-5.1) mmol/L Chloride 90 L (98-107) mmol/L Carbon Dioxide 36 H (22-30) mmol/L BUN 84 H (7-17) mg/dL Creatinine 2.05 H (0.52-1.04) mg/dL Glucose 304 H (74-99) mg/dL POC Glucose (mg/dL) 322 H (75-99) mg/dL 01/02/22 Range/Units 10:55 RBC (3.80-5.40) m/uL Hgb (11.4-16.0) gm/dL Hct (34.0-46.0) % MCH (25.0-35.0) pg MCHC (31.0-37.0) g/dL RDW (11.5-15.5) % Plt Count (150-450) k/uL Lymphocytes # (1.0-4.8) k/uL Sodium (137-145) mmol/L Potassium (3.5-5.1) mmol/L Chloride (98-107) mmol/L Carbon Dioxide (22-30) mmol/L BUN (7-17) mg/dL Creatinine (0.52-1.04) mg/dL Glucose (74-99) mg/dL POC Glucose (mg/dL) 413 H (75-99) mg/dL Assessment and Plan Plan: Assessment: 1. Acute kidney injury secondary to ATN secondary to cardiorenal syndrome. Creatinine was 1.7 on admission and peaked at 2.53 - fairly stable at 2.05 today. No hydronephrosis noted on kidney ultrasound. 2. Chronic kidney disease stage IIIB with baseline creatinine in the range of 1.2-1.4 in August 2019. Etiology is diabetic kidney disease. 3. Acute on chronic diastolic CHF with moderate to severe pulmonary hypertension. 4. Acute hypoxic respiratory failure. 5. Fluid overload. Improving with diuresis. 6. Diabetes. 7. Anemia of chronic kidney disease. Iron deficiency noted - s/p IV iron. 8. Hypertension with chronic kidney disease. Stable. 9. Urinary retention. French catheter placed 12/20/2021 - now removed. On Flomax. 10. Hyperkalemia secondary to hyperglycemia. 11. Hyponatremia secondary to hyperglycemia. Plan: Maintain torsemide. Wean FiO2. Avoid nephrotoxins. Continue to monitor renal function and urine output. Add Aranesp. 10 units IV insulin now. Tight blood sugar control. Repeat potassium level in 2 hours. Possibly going home today. Repeat BMP and magnesium level 2-3 days postdischarge. Follow up outpatient in 1 week.
[2022-01-02] MEDS ORDERED: DARBEPOETIN ALFA 40 MCG/0.4 ML SYRINGE SQ SCH (11:30)
--- NOTE | 2022-01-02 11:50 | P.DS ---
Providers Date of admission: 12/16/21 18:48 Expected date of discharge: 01/02/22 Attending physician: Sathish Banks MD Consults: 12/16/21 18:45 Consult Physician Urgent Consulting Provider: [facility] Consult Reason/Comments: acute/chronic hypoxic resp failure, chf exacerbation Do you want consulting provider notified?: Yes Consult Physician Urgent Consulting Provider: Juan Cunningham Consult Reason/Comments: acute/chronic hypoxix resp failure, copd hx Do you want consulting provider notified?: Yes 12/18/21 20:31 Consult Physician Urgent Consulting Provider: Mynor Diaz Consult Reason/Comments: raiza Do you want consulting provider notified?: Yes Primary care physician: Sathish Banks MD Hospital Course: Final Diagnoses: Acute on chronic CHF exacerbation, diastolic dysfunction Moderate to severe pulmonary hypertension, RVSP 55.45 Acute UTI with enterococcus faecalis, completed antibiotic therapy History of ARDS related to Recent covid infection infection 09/27 Pulmonary fibrosis Acute on chronic hypoxic, hypercapnic respiratory failure secondary to all the above, prn BiPAP COPD, severe Acute on Chronic kidney disease, stage IIIB, secondary to ATN related to cardiorenal syndrome Anemia of chronic kidney disease, iron deficient Urinary retention Hypertension Aortic Stenosis,mild Hypothyroidism Diabetes mellitus type 2, A1c 6.6 Morbid obesity, BMI 42.3 Hospital course:This is a 71-year-old female with past medical history of COPD, on home O2, diabetes mellitus type 2, hypertension admitted with shortness of breath, fluid overload, underlying CHF exacerbation and multiple other medical issues.Maintained on nebulized bronchodilators, Levaquin and Lasix IV push.Diuresing well on Lasix IV push, denies increased shortness of breath except positive exertional shortness of breath, denies cough. Decreasing edema. Worsening renal function, creatinine 2.53. Currently maintaining O2 sats in the high 80s to 2 mid 90s on 8 L high flow nasal cannula. Echo reported normal LV function, EF 55-60%, mild aortic stenosis, moderate to severe pulmonary hypertension. Afebrile. 12/20/2021 tired this morning, unable to sleep well last night secondary to chronic back pain, received tramadol. Mild confusion this morning. Incentive spirometer up to 500. Patient back up to 10 L high flow nasal cannula, maintaining O2 sats in the low 90s. Staff reports patient is a 3 person assist to and from bedside commode, desats with exertion down to 82%. Diuretics discontinued yesterday, renal function improving, creatinine down to 2.25. C hest x-ray reporting ongoing CHF and mild interstitial pulmonary edema superimposed on COPD, continue spot a moderate left pleural effusion with adjacent atelectasis and/or consolidation. Received a dose Lasix IV push. Afebrile, normal WBC. 12/21/2021 last night family believed patient to be more lethargic, ABGs drawn, CO2 60, received a dose of Diamox, CO2 this morning decreased to 36. Continues on 8 L high flow nasal cannula maintaining O2 sats of 97 and 98%. Yesterday antibiotics adjusted to daptomycin as urine culture reported enterococcus faecalis, resistant to quinolones, in a patient with penicillin ALLERGIES, with a elevated creatinine.afebrile renal function improving, BUN 49, creatinine 1.99. Required French catheter for urinary retention .Flomax added to med.regimen.yesterday he received a dose of Lasix IV push, 24-hour I&O reflecting a negative fluid balance .Continues on IV iron. 12/22/2021 sensorium significantly improved, much more alert. Reports she feels better. Bicarb 37. Maintaining O2 sats in the low 90s on 8 L high flow nasal cannula. Chest x-ray continues to report persistent reticulonodular densities bilaterally with increased right lower lobe density. Continues on daptomycin. Diuresing well on Lasix IV push with 24-hour I reflecting a negative fluid balance. Renal function trending down ,BUN 46, creatinine 1.79. Continues on IV iron. 12/23/2021 maintained on 8 L nasal cannula high flow,O2 sats in the 90s, BiPAP during the night. CO2 34. Minimal cough. Continues on daptomycin. Renal function improving. Afebrile. 12/26/2021 continues on 8 L nasal cannula, maintaining O2 sats in the 90s/ required BiPAP at night , CO2 35. Completed her daptomycin treatment for her enterococcal UTI. Renal function mildly worsened, BUN 50, creatinine 2.45. Denies chest pain, palpitations. 12/27/2021 Bipap throughout the night. Currently on 2 L nasal cannula, maintaining O2 sats in the high 80s to low 90s. Denies chest pain, palpitat ions. Complains of congestion, unable to cough up. Afebrile, renal function improving. Blood sugars controlled. 12/28/2021 maintained on BiPAP, maintaining O2 sats in the 90s. Reports minimal shortness of breath. Yesterday Lasix held as per nephrology, creatinine and continues trending down, 2.29. Flutter valve ordered yesterday, suspected mucus plugging. Chest x-ray yesterday reported mild cardiomegaly, bilateral diffuse reticulonodular infiltrates and/or edema, persistent left greater than right bibasilar acute infiltrate and/or atelectasis. Persistent small left greater than right pleural effusions-no significant change from prior. Afebrile. 12/29/2021 maintained on BiPAP during the night, currently on 8 L high flow nasal cannula maintaining O2 sats in the low 90s. Lasix resumed, currently on scheduled IV push. Diuresing well with 24-hour I&O reflecting a negative fluid balance. Creatinine trending down, 2.2, BUN 52. Maintained on IV steroids, hyperglycemic, blood sugars ranging 150 to 250. Denies chest pain, palpitations or increasing shortness of breath. Denies cough, congestion. Denies sweats or chills. 12/30/2021 required BiPAP off-and-on throughout the night. Currently maintaining O2 sats in the 90s on 8 L high flow nasal cannula. Chest x-ray reporting no significant change from prior. Afebrile. patient visiting with her daughter via phone, laughing, smiling. Conversing without shortness of breath. Tolerating diet with no nausea vomiting or diarrhea. Positive bowel movement yesterday. Denies abdominal pain. Diuresing well, 24-hour I&O continues to reflect a negative fluid balance, no edema. Renal function continues improving. Denies cough, congestion, shortness of breath. Denies chest pain, palpitations. Palliative care discussed with both patient and daughter who are in agreement with informational meeting. Daughter quit her job to take care of her mom and is interested in obtaining additional resources to help her at home. Case management notified. Patient and daughter discussed ready for discharge home,tomorrow. Significant clinical improvement. Maintaining O2 sats in the 90s on 6 L high flow nasal cannula .evaluated for home BiPAP. Cleared by pulmonary and cardiology for discharge. Hyperglycemia, long acting insulin initiated. Patient will be discharged on Lantus as well as premeal novolog insulin with parameters .Potassium 5.8, BUN 84, creatinine 2.05. Received 10 units regular IV insulin.Patient will be discharged home today in a stable condition with guarded prognosis ,pending repeat potassium level, pending clearance, diuretics per nephrology. The impression and plan of care has been dictated as directed. : I performed a history and examination of this patient, discussed the same with the dictator. I agree with the dictator's note ,documented as a scribe. Any additional findings or plans will be noted. Patient Condition at Discharge: Stable Plan - Discharge Summary New Discharge Prescriptions: New carvediloL [Coreg*] 25 mg PO BID-W/MEALS #60 tab Ipratropium-Albuterol Nebulize [Duoneb 0.5 mg-3 mg/3 ml Soln] 3 ml INHALATION RT-QID ml Tamsulosin [Flomax] 0.4 mg PO PC-BRKFST #30 Isosorbide Mononitrate ER [Imdur] 30 mg PO DAILY #30 tablet predniSONE 10 mg PO DIRECTED #30 tab Torsemide [Demadex] 20 mg PO DAILY #30 tab INSULIN ASPART (NovoLOG) [NovoLOG (formulary)] 10 unit SQ AC-TID #10 ml Insulin Glargine [Lantus Vial] 20 unit SQ HS #10 ml ALPRAZolam [Xanax] 0.5 mg PO HS PRN #3 tab PRN Reason: Anxiety Continue amLODIPine [Norvasc] 10 mg PO DAILY Pravastatin Sodium [Pravachol] 40 mg PO HS Albuterol Sulfate [Proair Hfa] 1 - 2 puff INHALATION RT-Q6H PRN PRN Reason: Shortness Of Breath Levothyroxine Sodium [Synthroid] 88 mcg PO DAILY Thyroid,Pork [Event Marketing Representative Thyroid] 30 mg PO DAILY Montelukast [Singulair] 10 mg PO HS Iron 18 mg PO BID Ergocalciferol (Vitamin D2) [Drisdol (50,000 Iu)] 1,250 mcg PO CALIXTO busPIRone HCl [Buspar] 5 mg PO TID Budesonide [Pulmicort] 0.5 mg INHALATION RT-BID Budesonide/Formoterol Fumarate [Symbicort 80-4.5 Mcg Inhaler] 2 puff INHALATION RT-BID Changed Ipratropium-Albuterol Nebulize [Duoneb 0.5 mg-3 mg/3 ml Soln] 3 ml INHALATION RT-Q4H PRN #0 PRN Reason: Shortness Of Breath hydrALAZINE HCL 100 mg PO Q8H #0 Sertraline [Zoloft] 100 mg PO HS #0 Discontinued Tiotropium 18 Mcg/Puff [Spiriva] 1 cap INHALATION RT-DAILY Insulin Glargine [Lantus Vial] See Protocol SQ HS Furosemide [Lasix] 20 mg PO DAILY Losartan Potassium 50 mg PO DAILY INSULIN ASPART (NovoLOG) [NovoLOG (formulary)] 10 - 15 unit SQ PC-TID PRN PRN Reason: Blood Sugar - High Discharge Medication List Albuterol Sulfate [Proair Hfa] 1 - 2 puff INHALATION RT-Q6H PRN 05/22/19 [History] Levothyroxine Sodium [Synthroid] 88 mcg PO DAILY 05/22/19 [History] Montelukast [Singulair] 10 mg PO HS 05/22/19 [History] Pravastatin Sodium [Pravachol] 40 mg PO HS 05/22/19 [History] Thyroid,Pork [Event Marketing Representative Thyroid] 30 mg PO DAILY 05/22/19 [History] amLODIPine [Norvasc] 10 mg PO DAILY 05/22/19 [History] Budesonide [Pulmicort] 0.5 mg INHALATION RT-BID 12/16/21 [History] Ergocalciferol (Vitamin D2) [Drisdol (50,000 Iu)] 1,250 mcg PO CALIXTO 12/16/21 [History] Iron 18 mg PO BID 12/16/21 [History] busPIRone HCl [Buspar] 5 mg PO TID 12/16/21 [History] Budesonide/Formoterol Fumarate [Symbicort 80-4.5 Mcg Inhaler] 2 puff INHALATION RT-BID 12/17/21 [History] ALPRAZolam [Xanax] 0.5 mg PO HS PRN #3 tab 01/02/22 [Rx] INSULIN ASPART (NovoLOG) [NovoLOG (formulary)] 10 unit SQ AC-TID #10 ml 01/02/22 [Rx] Insulin Glargine [Lantus Vial] 20 unit SQ HS #10 ml 01/02/22 [Rx] Ipratropium-Albuterol Nebulize [Duoneb 0.5 mg-3 mg/3 ml Soln] 3 ml INHALATION RT-Q4H PRN #0 01/02/22 [Rx] Ipratropium-Albuterol Nebulize [Duoneb 0.5 mg-3 mg/3 ml Soln] 3 ml INHALATION RT-QID ml 01/02/22 [Rx] Isosorbide Mononitrate ER [Imdur] 30 mg PO DAILY #30 tablet 01/02/22 [Rx] Sertraline [Zoloft] 100 mg PO HS #0 01/02/22 [Rx] Tamsulosin [Flomax] 0.4 mg PO PC-BRKFST #30 01/02/22 [Rx] Torsemide [Demadex] 20 mg PO DAILY #30 tab 01/02/22 [Rx] carvediloL [Coreg*] 25 mg PO BID-W/MEALS #60 tab 01/02/22 [Rx] hydrALAZINE HCL 100 mg PO Q8H #0 01/02/22 [Rx] predniSONE 10 mg PO DIRECTED #30 tab 01/02/22 [Rx] Follow up Appointment(s)/Referral(s): Sathish Banks MD [Primary Care Provider] - 01/06/22 11:45 am Ruslan Cordero MD [STAFF PHYSICIAN] - 1 Week (office not answering please call to schedule appointment ) Ambulatory/Diagnostic Orders: Complete Blood Count w/diff [LAB.AMB] Time Frame: 3 Days, Location: None Selected Activity/Diet/Wound Care/Special Instructions: Home Care - [facility] - [phone] Patient will need ambulance transport home - completed ambulance form on chart - call [phone] to schedule ambulance at time of discharge accu suzy gonsalves, maintain log and take to follow up visit for further rec. Discharge Disposition: HOME WITH HOME HEALTH SERVICES
[2022-01-02 12:39] LABS: Glucose,Whole Blood 383 mg/dL (75-99)
[2022-01-02 14:42] VITALS: RESP 17; TEMP 97.9
--- NOTE | 2022-01-02 15:15 | P.PN ---
Progress Note - Text Progress Note Date: 01/02/22 On 12/31, pt had an overnight sleep study that showed 7 desaturation events of over 3 minutes duration and 48 desaturation events of less than 3 minutes. She is recommended to wear a BIPAP at night.
[2022-01-02] MEDS ORDERED: SODIUM ZIRCONIUM CYCLOSILICATE 10 GM PACKET PO ONE (16:00)
[2022-01-02 16:52] LABS: Glucose,Whole Blood 228 mg/dL (75-99)
[2022-01-02 17:18] VITALS: BP 156/66; PULSE 83
== END 2022-01-02 18:02 | disposition home health service (06) | DRG 291 ==
LOC: EC 14:08 → 3SCARD 18:48 → 4SSUR 01-02 00:44
PROVIDERS: ADMIT Family Medicine; ATTEND Family Medicine
PROC: 5A0955A Assistance with Respiratory Ventilation, Greater than 96 Consecutive Hours, High Flow/Velocity Cannula (ICD-10-PCS; principal; 2021-12-16)
PROC: 5A09457 Assistance with Respiratory Ventilation, 24-96 Consecutive Hours, Continuous Positive Airway Pressure (ICD-10-PCS; 2021-12-23)
DX: I13.0 Hypertensive heart and chronic kidney disease with heart failure and stage 1 through stage 4 chronic kidney disease, or unspecified chronic kidney disease (principal); I50.33 Acute on chronic diastolic (congestive) heart failure; J96.21 Acute and chronic respiratory failure with hypoxia; J96.22 Acute and chronic respiratory failure with hypercapnia; N17.0 Acute kidney failure with tubular necrosis; Z68.41 Body mass index [BMI] 40.0-44.9, adult; E87.1 Hypo-osmolality and hyponatremia; E87.3 Alkalosis; J44.0 Chronic obstructive pulmonary disease with (acute) lower respiratory infection; J44.1 Chronic obstructive pulmonary disease with (acute) exacerbation; N39.0 Urinary tract infection, site not specified; Z16.23 Resistance to quinolones and fluoroquinolones; B95.2 Enterococcus as the cause of diseases classified elsewhere; D63.1 Anemia in chronic kidney disease; D50.9 Iron deficiency anemia, unspecified; D69.6 Thrombocytopenia, unspecified; E03.9 Hypothyroidism, unspecified; U09.9 Post COVID-19 condition, unspecified; E11.65 Type 2 diabetes mellitus with hyperglycemia; N18.32 Chronic kidney disease, stage 3b; E11.22 Type 2 diabetes mellitus with diabetic chronic kidney disease; E66.01 Morbid (severe) obesity due to excess calories; E87.5 Hyperkalemia; F41.9 Anxiety disorder, unspecified; I27.20 Pulmonary hypertension, unspecified; R33.9 Retention of urine, unspecified; I35.0 Nonrheumatic aortic (valve) stenosis; J84.10 Pulmonary fibrosis, unspecified; G89.29 Other chronic pain; T50.2X5A Adverse effect of carbonic-anhydrase inhibitors, benzothiadiazides and other diuretics, initial encounter; Z88.0 Allergy status to penicillin; Z79.4 Long term (current) use of insulin; Z79.51 Long term (current) use of inhaled steroids; Z79.52 Long term (current) use of systemic steroids; Z79.890 Hormone replacement therapy; Z79.899 Other long term (current) drug therapy; Z82.49 Family history of ischemic heart disease and other diseases of the circulatory system; Z82.0 Family history of epilepsy and other diseases of the nervous system; Z83.3 Family history of diabetes mellitus; Z86.718 Personal history of other venous thrombosis and embolism; Z87.01 Personal history of pneumonia (recurrent); Z87.891 Personal history of nicotine dependence; Z90.710 Acquired absence of both cervix and uterus; Z99.81 Dependence on supplemental oxygen
CPT/HCPCS: 36415; 36600; 71045; 71046; 76770; 80048; 80053; 80069; 81001; 82728; 82805; 83036; 83540; 83550; 83605; 83735; 83880; 84132; 84484; 85025; 85379; 85610; 85730; 87077; 87086; 87186; 93005; 93306; 94640; 94660; 94760; 94762; 96374; 96375; 99285

== ENCOUNTER 2022-01-13 19:44 | Inpatient (IN) | payer MEDICARE ==
[2022-01-13] MEDS ORDERED: ALBUTEROL NEBULIZED 2.5 MG/3 ML INHALATION STA (19:50)
[2022-01-13] MEDS ORDERED: IPRATROPIUM 0.5 MG/2.5 ML NEBU INHALATION STA (19:50)
[2022-01-13] MEDS ORDERED: FUROSEMIDE 10 MG/ML 4 ML VIAL IV STA (19:50)
[2022-01-13 20:11] LABS: Anisocytosis Slight; HCT 35.5 % (34.0-46.0); HGB 10.4 gm/dL (11.4-16.0); Hypochromasia Marked; MCH 24.8 pg (25.0-35.0); MCHC 29.3 g/dL (31.0-37.0); MCV 84.8 fL (80.0-100.0); RBC 4.19 m/uL (3.80-5.40); RDW 17.2 % (11.5-15.5); WBC 20.4 k/uL (3.8-10.6)
[2022-01-13 20:21] LABS: Albumin 3.3 g/dL (3.5-5.0); Magnesium 1.5 mg/dL (1.6-2.3); Potassium 4.6 mmol/L (3.5-5.1); Total Bilirubin 0.8 mg/dL (0.2-1.3); Total Protein 5.4 g/dL (6.3-8.2)
--- NOTE | 2022-01-13 20:25 | ED ---
General Adult HPI - General Source: patient, EMS, RN notes reviewed, old records reviewed Mode of arrival: EMS Limitations: no limitations <Ruslan Jacinto - Last Filed: 01/13/22 21:25> <Ruslan Fu - Last Filed: 01/14/22 06:50> - General Chief complaint: Shortness of Breath Stated complaint: SOB Time Seen by Provider: 01/13/22 19:44 - History of Present Illness Initial comments: This is a 71-year-old female who has a past medical history significant for COPD and CHF. Patient states over the last few days she's had difficulty breathing and is getting progressively worse. Patient states she's normally on 6 L of oxygen and does take breathing treatments at home. Patient states she continued to get worse either way. Patient states that she has no chest pain or palpitations. Patient denies any recent fever chills or cough per patient denies any lightheadedness or dizziness. Patient states just the breathing gets progressively worse. According to EMS when She Was at 75% Pulse Ox with 6 L. They Put on a Nonrebreather and Brought Her into the Hospital and Didn't Give Her Any Medications in Route. (Ruslan Jacinto) - Related Data Home Medications Medication Instructions Recorded Confirmed Albuterol Sulfate [Proair Hfa] 1 - 2 puff INHALATION RT-Q6H PRN 05/22/19 12/17/21 Levothyroxine Sodium [Synthroid] 88 mcg PO DAILY 05/22/19 12/17/21 Montelukast [Singulair] 10 mg PO HS 05/22/19 12/17/21 Pravastatin Sodium [Pravachol] 40 mg PO HS 05/22/19 12/17/21 Thyroid,Pork [Personal Property Assessor Thyroid] 30 mg PO DAILY 05/22/19 12/17/21 amLODIPine [Norvasc] 10 mg PO DAILY 05/22/19 12/17/21 Budesonide [Pulmicort] 0.5 mg INHALATION RT-BID 12/16/21 12/17/21 Ergocalciferol (Vitamin D2) 1,250 mcg PO CALIXTO 12/16/21 12/17/21 [Drisdol (50,000 Iu)] Iron 18 mg PO BID 12/16/21 12/17/21 busPIRone HCl [Buspar] 5 mg PO TID 12/16/21 12/17/21 Budesonide/Formoterol Fumarate 2 puff INHALATION RT-BID 12/17/21 12/17/21 [Symbicort 80-4.5 Mcg Inhaler] Previous Rx's Medication Instructions Recorded ALPRAZolam [Xanax] 0.5 mg PO HS PRN #3 tab 01/02/22 INSULIN ASPART (NovoLOG) [NovoLOG 10 unit SQ AC-TID #10 ml 01/02/22 (formulary)] Insulin Glargine [Lantus Vial] 20 unit SQ HS #10 ml 01/02/22 Ipratropium-Albuterol Nebulize 3 ml INHALATION RT-Q4H PRN #0 01/02/22 [Duoneb 0.5 mg-3 mg/3 ml Soln] Ipratropium-Albuterol Nebulize 3 ml INHALATION RT-QID ml 01/02/22 [Duoneb 0.5 mg-3 mg/3 ml Soln] Isosorbide Mononitrate ER [Imdur] 30 mg PO DAILY #30 tablet 01/02/22 Sertraline [Zoloft] 100 mg PO HS #0 01/02/22 Tamsulosin [Flomax] 0.4 mg PO PC-BRKFST #30 01/02/22 Torsemide [Demadex] 20 mg PO DAILY #30 tab 01/02/22 carvediloL [Coreg*] 25 mg PO BID-W/MEALS #60 tab 01/02/22 hydrALAZINE HCL 100 mg PO Q8H #0 01/02/22 predniSONE 10 mg PO DIRECTED #30 tab 01/02/22 Allergies Allergy/AdvReac Type Severity Reaction Status Date / Time amoxicillin Allergy Anaphylaxis Verified 01/13/22 19:54 Penicillins Allergy Anaphylaxis Verified 01/13/22 19:54 zolpidem [From Ambien] AdvReac Confusion/A Verified 01/13/22 19:54 MS Review of Systems ROS Other: All systems not noted in ROS Statement are negative. <Ruslan Jacinto - Last Filed: 01/13/22 21:25> ROS Other: All systems not noted in ROS Statement are negative. <Ruslan Fu - Last Filed: 01/14/22 06:50> ROS Statement: Those systems with pertinent positive or pertinent negative responses have been documented in the HPI. Past Medical History Past Medical History: COPD, Diabetes Mellitus, Hypertension Additional Past Medical History / Comment(s): ARDS secondary to pneumonia more than 10 years ago requiring tracheostomy tube insertion, COPD with established FEV1 of 41% of predicted, diabetes mellitus, hypertension, history of morbid obesity History of Any Multi-Drug Resistant Organisms: None Reported Past Surgical History: Cholecystectomy, Hysterectomy Past Anesthesia/Blood Transfusion Reactions: No Reported Reaction Past Psychological History: Anxiety Smoking Status: Former smoker Past Alcohol Use History: None Reported Past Drug Use History: None Reported - Past Family History Mother Family Medical History: Congestive Heart Failure (CHF), Diabetes Mellitus Additional Family Medical History / Comment(s): The patient's mother had congestion heart failure and diabetes mellitus in the father had Parkinson's disease. <Ruslan Jacnito - Last Filed: 01/13/22 21:25> General Exam Limitations: no limitations <Ruslan Jacinto - Last Filed: 01/13/22 21:25> - General Exam Comments Initial Comments: GENERAL: Patient is well-developed and well-nourished. Patient is nontoxic and well-hydr ated and is in mild distress. ENT: Neck is soft and supple. No significant lymphadenopathy is noted. Oropharynx is clear. Moist mucous membranes. Neck has full range of motion without eliciting any pain. EYES: The sclera were anicteric and conjunctiva were pink and moist. Extraocular movements were intact and pupils were equal round and reactive to light. Eyelids were unremarkable. PULMONARY: Patient is very diminished breath sounds bilaterally and some slight crackles in the bases. CARDIOVASCULAR: There is a regular rate and rhythm without any murmurs gallops or rubs. ABDOMEN: Soft and nontender with normal bowel sounds. SKIN: Skin is clear with no lesions or rashes and otherwise unremarkable. NEUROLOGIC: Patient is alert and oriented x3. Cranial nerves II through XII are grossly intact. Motor and sensory are also intact. Normal speech, volume and content. Symmetrical smile. MUSCULOSKELETAL: Normal extremities with adequate strength and full range of motion. Scant edema LYMPHATICS: No significant lymphadenopathy is noted PSYCHIATRIC: Normal psychiatric evaluation. (Ruslan Jacinto) Course Vital Signs 01/13/22 01/13/22 01/13/22 19:45 19:55 20:15 Temperature 98.9 F Pulse Rate 86 89 Respiratory 24 22 Rate Blood Pressure 123/68 O2 Sat by Pulse 86 L Oximetry 01/13/22 01/13/22 20:28 20:50 Temperature Pulse Rate 87 87 Respiratory Rate Blood Pressure O2 Sat by Pulse Oximetry Medical Decision Making - Lab Data Result diagrams: 01/13/22 19:55 01/13/22 19:55 <Ruslan Jacinto - Last Filed: 01/13/22 21:25> - Lab Data Result diagrams: 01/13/22 19:55 01/13/22 19:55 <Ruslan Fu - Last Filed: 01/14/22 06:50> - Medical Decision Making EKG shows sinus rhythm at 81 bpm RI interval 250 QRS is 86 QT interval 337 QTC is 375. Patient's EKG shows no ST segment elevation or depression. Chest x-ray shows pulmonary edema. Patient received Lasix in the emergency department. Patient's pulse ox was in the low 80s on her normal 6 L. I spoke with [facility] hospitalist agreed to admit the patient admitted the patient wrote admitting orders. Patient was started on Levaquin secondary to the high white count even though no definitive infection was seen at this time. (Ruslan Jacinto) - Lab Data Lab Results 01/13/22 01/13/22 01/13/22 Range/Units 19:55 19:55 19:55 WBC 20.4 H (3.8-10.6) k/uL RBC 4.19 (3.80-5.40) m/uL Hgb 10.4 L (11.4-16.0) gm/dL Hct 35.5 (34.0-46.0) % MCV 84.8 (80.0-100.0) fL MCH 24.8 L (25.0-35.0) pg MCHC 29.3 L (31.0-37.0) g/dL RDW 17.2 H (11.5-15.5) % Plt Count 90 L (150-450) k/uL MPV 9.0 Neutrophils % (Manual) 88 % Band Neuts % (Manual) 6 % Lymphocytes % (Manual) 2 % Monocytes % (Manual) 3 % Metamyelocytes % 1 % Neutrophils # (Manual) 19.10 H (1.3-7.7) k/uL Lymphocytes # (Manual) 0.41 L (1.0-4.8) k/uL Monocytes # (Manual) 0.61 (0-1.0) k/uL Metamyelocytes # (Man) 0.20 H (0) k/uL Nucleated RBCs 0 (0-0) /100 WBC Manual Slide Review Performed Hypochromasia Marked Anisocytosis Slight PT 11.0 (9.0-12.0) sec INR 1.0 (<1.2) APTT 25.7 (22.0-30.0) sec Sodium 137 (137-145) mmol/L Potassium 4.6 (3.5-5.1) mmol/L Chloride 96 L (98-107) mmol/L Carbon Dioxide 38 H (22-30) mmol/L Anion Gap 3 mmol/L BUN 42 H (7-17) mg/dL Creatinine 1.44 H (0.52-1.04) mg/dL Est GFR (CKD-EPI)AfAm 42 (>60 ml/min/1.73 sqM) Est GFR (CKD-EPI)NonAf 37 (>60 ml/min/1.73 sqM) Glucose 185 H (74-99) mg/dL Plasma Lactic Acid Uday (0.7-2.0) mmol/L Calcium 8.0 L (8.4-10.2) mg/dL Magnesium 1.5 L (1.6-2.3) mg/dL Total Bilirubin 0.8 (0.2-1.3) mg/dL AST 17 (14-36) U/L ALT 22 (4-34) U/L Alkaline Phosphatase 64 (38-126) U/L Troponin I (0.000-0.034) ng/mL NT-Pro-B Natriuret Pep pg/mL Total Protein 5.4 L (6.3-8.2) g/dL Albumin 3.3 L (3.5-5.0) g/dL 01/13/22 01/13/22 01/13/22 Range/Units 19:55 19:55 19:55 WBC (3.8-10.6) k/uL RBC (3.80-5.40) m/uL Hgb (11.4-16.0) gm/dL Hct (34.0-46.0) % MCV (80.0-100.0) fL MCH (25.0-35.0) pg MCHC (31.0-37.0) g/dL RDW (11.5-15.5) % Plt Count (150-450) k/uL MPV Neutrophils % (Manual) % Band Neuts % (Manual) % Lymphocytes % (Manual) % Monocytes % (Manual) % Metamyelocytes % % Neutrophils # (Manual) (1.3-7.7) k/uL Lymphocytes # (Manual) (1.0-4.8) k/uL Monocytes # (Manual) (0-1.0) k/uL Metamyelocytes # (Man) (0) k/uL Nucleated RBCs (0-0) /100 WBC Manual Slide Review Hypochromasia Anisocytosis PT (9.0-12.0) sec INR (<1.2) APTT (22.0-30.0) sec Sodium (137-145) mmol/L Potassium (3.5-5.1) mmol/L Chloride (98-107) mmol/L Carbon Dioxide (22-30) mmol/L Anion Gap mmol/L BUN (7-17) mg/dL Creatinine (0.52-1.04) mg/dL Est GFR (CKD-EPI)AfAm (>60 ml/min/1.73 sqM) Est GFR (CKD-EPI)NonAf (>60 ml/min/1.73 sqM) Glucose (74-99) mg/dL Plasma Lactic Acid Uday 0.7 (0.7-2.0) mmol/L Calcium (8.4-10.2) mg/dL Magnesium (1.6-2.3) mg/dL Total Bilirubin (0.2-1.3) mg/dL AST (14-36) U/L ALT (4-34) U/L Alkaline Phosphatase (38-126) U/L Troponin I 0.026 (0.000-0.034) ng/mL NT-Pro-B Natriuret Pep 4850 pg/mL Total Protein (6.3-8.2) g/dL Albumin (3.5-5.0) g/dL Critical Care Time Critical Care Time: Yes Total Critical Care Time: 35 <Ruslan Jacinto - Last Filed: 01/13/22 21:25> Disposition Time of Disposition: 21:17 <Ruslan Jacinto - Last Filed: 01/13/22 21:25> <Ruslan Fu - Last Filed: 01/14/22 06:50> Clinical Impression: Acute pulmonary edema Disposition: ADMITTED IP TO THIS HOSP Referrals: Sathish Banks MD [Primary Care Provider] - 1-2 days
[2022-01-13 20:36] LABS: Partial Thromboplastin Time 25.7 sec (22.0-30.0)
[2022-01-13 20:55] LABS: Band Neutrophils % 6 %; Lymphocytes # (M) 0.41 k/uL (1.0-4.8); Metamyelocytes % 1 %; Monocytes # (M) 0.61 k/uL (0-1.0); Neutrophils % (M) 88 %; Nucleated Red Blood Cells 0 /100 WBC (0-0); Total Cells Counted 100
[2022-01-13 20:57] LABS: Platelet Count 90 k/uL (150-450)
[2022-01-13] MEDS ORDERED: LEVOFLOXACIN 750MG-D5W PMX 750 MG in DEXTROSE/WATER 1 150ML.BAG IVPB STA (21:23)
--- NOTE | 2022-01-13 21:36 | XR ---
EXAMINATION TYPE: XR chest 2V DATE OF EXAM: 01/13/2022 9:07 PM COMPARISON:Chest radiographs from 12/30/2021 TECHNIQUE: XR chest 2V Frontal and lateral views of the chest. CLINICAL INDICATION:Female, 71 years old with history of difficulty breathing; FINDINGS: Lungs/Pleura: Interval worsening of opacity seen primarily projecting over the heart. There remains s cattered reticular nodular opacities is seen and multiple priors dating back to early December. Pulmonary vascularity: Pulmonary vascular congestion. Heart/mediastinum: Cardiomediastinal silhouette is enlarged and stable. Musculoskeletal: No acute osseous pathology. IMPRESSION: 1. Interval worsening of scattered airspace opacities projecting over the heart correlate for pneumo [place]. 2. A superimposed component of congestive heart failure is not entirely excluded, correlate with ser um BNP.
[2022-01-13] MEDS: LEVOFLOXACIN 750MG-D5W PMX 750 MG in DEXTROSE/WATER 1 150ML.BAG IVPB SCH (22:46)
[2022-01-13] MEDS: NITROGLYCERIN OINT 1 INCH/GM PACKET TOPICAL SCH (22:46)
[2022-01-14] MEDS: FUROSEMIDE 40 MG TAB PO SCH ×2 (00:29→07:54)
[2022-01-14] MEDS ORDERED: IPRATROPIUM-ALBUTEROL 3 ML NEB INHALATION PRN (02:50)
[2022-01-14 07:10] LABS: Glucose,Whole Blood 191 mg/dL (75-99)
[2022-01-14] MEDS: NITROGLYCERIN OINT 1 INCH/GM PACKET TOPICAL SCH (07:54)
[2022-01-14] MEDS ORDERED: BUDESONIDE 0.5 MG/2 ML NEBU INHALATION SCH ×2 (08:00→20:00)
[2022-01-14] MEDS: SYMBICORT 80-4.5 MCG INHALER INHALATION SCH ×2 (08:14→19:35)
[2022-01-14] MEDS: IPRATROPIUM-ALBUTEROL 3 ML NEB INHALATION SCH ×4 (08:14→19:35)
[2022-01-14 10:30] VITALS: BMI 38.4
[2022-01-14 12:05] LABS: Glucose,Whole Blood 209 mg/dL (75-99)
--- NOTE | 2022-01-14 12:57 | P.CNPUL ---
History of Present Illness Consult date: 01/14/22 Reason for consult: dyspnea History of present illness: 71-year-old. Patient gets readmitted through emergency department after a recent discharge from the hospital where she was treated for pneumonia/CHF and hypoxic respiratory failure. The patient was discharged home also on a home BiPAP ventilator which she was unable to tolerate. Note that she had a component of acute on chronic hypoxic and hypercapnic respiratory failure and for that reason she was offered a BiPAP at home which she was unable to utilize due to poor tolerability. She was on oxygen at 6 L O2 nasal cannula at home. She felt worsening shortness of breath along with some cough and congestion. Her oxygen requirements were getting worse and the patient's pulse ox dropped down to 75% and for that reason the patient was brought into the emergency department having worsening shortness of breath and hypoxemia and a chest x-ray showed worsening interstitial edema/pulmonary edema bilaterally. The patient denies having any chest pain. Denied having any fever chills or night sweats. In the ED, the patient was afebrile. The white cell count was at 20.4 with a hemoglobin of 10.4 and platelet count of 90. Urine was at 42 and a creatinine of 1.4 which is lower compared to her previous creatinine from the hospital as the patient has chronic kidney disease. Sodium level was at 137 with a potassium level of 4.6 and a serum bicarb was 38. The chest x-ray showed pulmonary edema. The patient was given a dose of Lasix in the emergency department. Subsequently she was admitted to the hospital. She is currently on 4 L of oxygen by nasal cannula. She is awake and alert and there is no signs of any CO2 narcosis. She is following commands and answering questions appropriately at this point in time. Noted during her earlier hospitalization, the patient was essentially treated for the same. She had an acute on top of chronic hypoxic and hypercapnic re spiratory failure. She was given BiPAP on and off. She is known to have severe COPD with FEV1 of 41% of predicted. She has chronic hypoxic respiratory failure. She has chronic kidney disease and she has had a previous COVID 19 infection back in September 2021. She has chronic stage III B kidney disease. She has moderate to severe pulmonary hypertension and she is obese. She has diabetes mellitus type 2 and hypertension hypothyroidism. During her last admission, she also has a enterococcal urinary tract infection. Review of Systems Constitutional: Reports fatigue, Reports poor appetite, Reports weakness Eyes: denies as per HPI, denies blurred vision, denies bulging eye, denies decreased vision, denies diplopia, denies discharge, denies dry eye, denies irritation, denies itching, denies pain, denies photophobia, denies loss of peripheral vision, denies loss of vision, denies tunnel vision/blind spots Ears: deny: decreased hearing, ear discharge, earache, tinnitus Ears, nose, mouth and throat: Reports as per HPI Breasts: absent: as per HPI, change in shape, gynecomastia, masses, nipple discharge, pain, skin changes, swelling Cardiovascular: Reports decreased exercise tolerance, Reports dyspnea on exertion Respiratory: Reports dyspnea, Reports home oxygen, Reports sleep apnea Gastrointestinal: Reports as per HPI Genitourinary: Reports as per HPI Menstruation: Reports as per HPI Musculoskeletal: Reports as per HPI Musculoskeletal: absent: ankle pain, ankle stiffness, ankle swelling Integumentary: Reports as per HPI Neurological: Reports as per HPI, Reports gait dysfunction, Reports weakness Psychiatric: Reports as per HPI Endocrine: Reports as per HPI Hematologic/Lymphatic: Reports as per HPI Allergic/Immunologic: Reports as per HPI Past Medical History Past Medical History: COPD, Diabetes Mellitus, Hypertension Additional Past Medical History / Comment(s): ARDS secondary to pneumonia more than 10 years ago requiring tracheostomy tube insertion, COPD with established FEV1 of 41% of predicted, diabetes mellitus, hypertension, history of morbid obesity History of Any Multi-Drug Resistant Organisms: None Reported Past Surgical History: Cholecystectomy, Hysterectomy Past Anesthesia/Blood Transfusion Reactions: No Reported Reaction Past Psychological History: Anxiety Smoking Status: Former smoker Past Alcohol Use History: None Reported Past Drug Use History: None Reported - Past Family History Mother Family Medical History: Congestive Heart Failure (CHF), Diabetes Mellitus Additional Family Medical History / Comment(s): The patient's mother had congestion heart failure and diabetes mellitus in the father had Parkinson's disease. 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 Goods Stock Clerk Thyroid] 30 mg PO DAILY 05/22/19 01/13/22 History amLODIPine [Norvasc] 10 mg PO DAILY 05/22/19 01/13/22 History Budesonide [Pulmicort] 0.5 mg INHALATION RT-BID 12/16/21 01/13/22 History Ergocalciferol (Vitamin D2) 1,250 mcg PO CALIXTO 12/16/21 01/13/22 History [Drisdol (50,000 Iu)] Iron 18 mg PO BID 12/16/21 01/13/22 History busPIRone HCl [Buspar] 5 mg PO TID 12/16/21 01/13/22 History Budesonide/Formoterol Fumarate 2 puff INHALATION RT-BID 12/17/21 01/13/22 His tory [Symbicort 80-4.5 Mcg Inhaler] ALPRAZolam [Xanax] 0.5 mg PO HS PRN #3 tab 01/02/22 01/13/22 Rx INSULIN ASPART (NovoLOG) [NovoLOG 10 unit SQ AC-TID #10 ml 01/02/22 01/13/22 Rx (formulary)] Insulin Glargine [Lantus Vial] 20 unit SQ HS #10 ml 01/02/22 01/13/22 Rx Ipratropium-Albuterol Nebulize 3 ml INHALATION RT-Q4H PRN #0 01/02/22 01/13/22 Rx [Duoneb 0.5 mg-3 mg/3 ml Soln] Ipratropium-Albuterol Nebulize 3 ml INHALATION RT-QID ml 01/02/22 01/13/22 Rx [Duoneb 0.5 mg-3 mg/3 ml Soln] Isosorbide Mononitrate ER [Imdur] 30 mg PO DAILY #30 tablet 01/02/22 01/13/22 Rx Sertraline [Zoloft] 100 mg PO HS #0 01/02/22 01/13/22 Rx Tamsulosin [Flomax] 0.4 mg PO PC-BRKFST #30 01/02/22 01/13/22 Rx Torsemide [Demadex] 20 mg PO DAILY #30 tab 01/02/22 01/13/22 Rx hydrALAZINE HCL 100 mg PO Q8H #0 01/02/22 01/13/22 Rx Carvedilol [Coreg] 25 mg PO BID-W/MEALS 01/13/22 01/13/22 History predniSONE See Taper PO DIRECTED 01/13/22 01/13/22 History Allergies Allergy/AdvReac Type Severity Reaction Status Date / Time amoxicillin Allergy Anaphylaxis Verified 01/13/22 21:45 Penicillins Allergy Anaphylaxis Verified 01/13/22 21:45 zolpidem [From Ambien] AdvReac Confusion/A Verified 01/13/22 21:45 MS Physical Exam Vitals: Vital Signs Temp Pulse Pulse Resp BP BP Pulse Ox 01/14/22 08:25 88 20 01/14/22 08:14 76 18 96 01/14/22 07:54 90 150/72 97 01/14/22 07:32 97.6 F 75 21 137/62 83 L 01/14/22 04:58 88 01/14/22 04:52 88 01/14/22 02:52 98.4 F 88 18 143/67 98 01/14/22 01:41 84 18 115/78 94 L 01/14/22 00:30 99.1 F 87 18 121/48 93 L 01/13/22 23:21 91 18 129/68 91 L 01/13/22 22:32 89 18 105/41 95 01/13/22 21:53 99.3 F 88 20 119/69 94 L 01/13/22 20:50 87 01/13/22 20:28 87 01/13/22 20:15 89 01/13/22 19:55 22 01/13/22 19:45 98.9 F 86 24 123/68 86 L Intake and Output 01/13/22 01/14/22 01/14/22 22:59 06:59 14:59 Intake Total 30 Output Total 150 100 Balance -150 -70 Intake: Oral 30 Output: Urine 150 100 Uretheral (French) 150 Other: Voiding Method Indwelling Catheter Weight 95.254 kg 95.254 kg GENERAL EXAM: 71-year-old white female, resting in bed, currently on 12L of oxygen pulse ox is 97% does not appear to be in any acute distress comfortable in no apparent distress. HEAD: Normocephalic/atraumatic. EYES: Normal reaction of pupils, equal size. Conjunctiva pink, sclera white. NOSE: Clear with pink turbinates. THROAT: No erythema or exudates. NECK: No masses, no JVD, no thyroid enlargement, no adenopathy. CHEST: No chest wall deformity. Symmetrical expansion. LUNGS: Diminished air entry with no crackles, wheeze, rhonchi or dullness. CVS: Regular rate and rhythm, normal S1 and S2, no gallops, no murmurs, no rubs ABDOMEN: Soft, nontender. No hepatosplenomegaly, normal bowel sounds, no guarding or rigidity. EXTREMITIES: No clubbing, no edema, no cyanosis, 2+ pulses and upper and lower extremities. MUSCULOSKELETAL: Muscle strength and tone normal. SPINE: No scoliosis or deformity SKIN: No rashes CENTRAL NERVOUS SYSTEM: Alert and oriented -3. No focal deficits, tone is normal in all 4 extremities. PSYCHIATRIC: Alert and oriented -3. Appropriate affect. Intact judgment and insight. Results - Laboratory Findings CBC and BMP: 01/13/22 19:55 01/13/22 19:55 PT/INR, D-dimer PT 11.0 sec (9.0-12.0) 01/13/22 19:55 INR 1.0 (<1.2) 01/13/22 19:55 Abnormal lab findings: Abnormal Labs 01/13/22 01/13/22 01/14/22 19:55 19:55 06:57 WBC 20.4 H Hgb 10.4 L MCH 24.8 L MCHC 29.3 L RDW 17.2 H Plt Count 90 L Neutrophils # (Manual) 19.10 H Lymphocytes # (Manual) 0.41 L Metamyelocytes # (Man) 0.20 H Chloride 96 L Carbon Dioxide 38 H BUN 42 H Creatinine 1.44 H Glucose 185 H POC Glucose (mg/dL) 191 H Calcium 8.0 L Magnesium 1.5 L Total Protein 5.4 L Albumin 3.3 L - Diagnostic Findings Chest x-ray: image reviewed Assessment and Plan Plan: #1. Acute on chronic hypoxic respiratory failure, related to acute exacerbation of CHF with diastolic dysfunction, the chest x-ray showing evidence of pulmonary edema. There is interval worsening in the pulmonary edema and the patient has presented to the hospital because of worsening hypoxemia and currently she is on 12 L of oxygen by nasal cannula, she was on 6 L at home. She was unable to utilize a home BiPAP. Her white second is also elevated. #2. 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 Prior history of acute respiratory distress syndrome requiring prolonged intubation and mechanical ventilation and eventual tracheostomy tube insertion with subsequent decannulation #4. History of severe COPD, the baseline FEV1 of 41% of predicted #5. History of hypothyroidism #6. History of diabetes mellitus type 2 #7. History of hypertension #8. Previous COVID-19 infection in September 2021 #9. Chronic kidney disease stage IIIB #10. Moderately severe pulmonary hypertension #11. Morbid obesity with BMI of 38 kg/m #12. Acute urinary tract infection related to enterococcus faecalis, completed a course of daptomycin #13 leukocytosis Plan Start the patient on Lasix 40 g IV every 12 hours Monitor oxygenation we'll start the patient on empiric antibiotic coverage with a combination of cefepime and Levaquin No need for BiPAP therapy at this point in time preceptor bronchodilators Resume all medications from home Monitor renal function as the patient is being diuresed Obtain blood cultures and urine cultures We'll continue to follow
[2022-01-14] MEDS: INSULIN ASPART (NovoLOG) 100 UNIT/ML VIAL SQ SCH ×2 (13:22→17:10)
[2022-01-14] MEDS: CEFEPIME 2 GM in SODIUM CHLORIDE 0.9% 100 ML IVPB SCH ×2 (13:34→20:29)
--- NOTE | 2022-01-14 14:35 | P.CRDCN ---
History of Present Illness Consult date: 01/14/22 History of present illness: This is a 71-year-old female who was recently treated for pneumonia/CHF and hypoxic respiratory failure. She has history of coronary arteries pneumonia for which she was treated in September. Patient was sent home on multiple medication including prednisone. Patient is brought back to the hospital with complaints of shortness of breath and the hypoxia. Chest x-ray showed bilateral pulmonary infiltrates, mostly in the basal area suggestive of possible pneumonia though CHF cannot be excluded. Her BNP is elevated. Her white count is 20,000. Patient is currently being treated with IV Lasix and also antibiotics. Patient seemed to be in mild to moderate distress, but doesn't appear to be in acute respiratory failure. Her sodium is 137, potassium is 4.6, bicarb is 38. Echocardiogram done on previous occasion showed normal LV function. She also obese and has severe underlying COPD. Continue current medical therapy. Fu rther recommend depend upon the clinical course and response to the treatment. Review of Systems As per the chart Past Medical History Past Medical History: COPD, Diabetes Mellitus, Hypertension Additional Past Medical History / Comment(s): ARDS secondary to pneumonia more than 10 years ago requiring tracheostomy tube insertion, COPD with established FEV1 of 41% of predicted, diabetes mellitus, hypertension, history of morbid obesity History of Any Multi-Drug Resistant Organisms: None Reported Past Surgical History: Cholecystectomy, Hysterectomy Past Anesthesia/Blood Transfusion Reactions: No Reported Reaction Past Psychological History: Anxiety Smoking Status: Former smoker Past Alcohol Use History: None Reported Past Drug Use History: None Reported - Past Family History Mother Family Medical History: Congestive Heart Failure (CHF), Diabetes Mellitus Additional Family Medical History / Comment(s): The patient's mother had congestion heart failure and diabetes mellitus in the father had Parkinson's disease. Medications and Allergies Home Medications Medication Instructions Recorded Confirmed Type Albuterol Sulfate [Proair Hfa] 1 - 2 puff INHALATION RT-Q6H PRN 05/22/19 01/13/22 History Levothyroxine Sodium [Synthroid] 88 mcg PO DAILY 05/22/19 01/13/22 History Montelukast [Singulair] 10 mg PO HS 05/22/19 01/13/22 History Pravastatin Sodium [Pravachol] 40 mg PO HS 05/22/19 01/13/22 History Thyroid,Pork [Assistant Technician Thyroid] 30 mg PO DAILY 05/22/19 01/13/22 History amLODIPine [Norvasc] 10 mg PO DAILY 05/22/19 01/13/22 History Budesonide [Pulmicort] 0.5 mg INHALATION RT-BID 12/16/21 01/13/22 History Ergocalciferol (Vitamin D2) 1,250 mcg PO CALIXTO 12/16/21 01/13/22 History [Drisdol (50,000 Iu)] Iron 18 mg PO BID 12/16/21 01/13/22 History busPIRone HCl [Buspar] 5 mg PO TID 12/16/21 01/13/22 History Budesonide/Formoterol Fumarate 2 puff INHALATION RT-BID 12/17/21 01/13/22 History [Symbicort 80-4.5 Mcg Inhaler] ALPRAZolam [Xanax] 0.5 mg PO HS PRN #3 tab 01/02/22 01/13/22 Rx INSULIN ASPART (NovoLOG) [NovoLOG 10 unit SQ AC-TID #10 ml 01/02/22 01/13/22 Rx (formulary)] Insulin Glargine [Lantus Vial] 20 unit SQ HS #10 ml 01/02/22 01/13/22 Rx Ipratropium-Albuterol Nebulize 3 ml INHALATION RT-Q4H PRN #0 01/02/22 01/13/22 Rx [Duoneb 0.5 mg-3 mg/3 ml Soln] Ipratropium-Albuterol Nebulize 3 ml INHALATION RT-QID ml 01/02/22 01/13/22 Rx [Duoneb 0.5 mg-3 mg/3 ml Soln] Isosorbide Mononitrate ER [Imdur] 30 mg PO DAILY #30 tablet 01/02/22 01/13/22 Rx Sertraline [Zoloft] 100 mg PO HS #0 01/02/22 01/13/22 Rx Tamsulosin [Flomax] 0.4 mg PO PC-BRKFST #30 01/02/22 01/13/22 Rx Torsemide [Demadex] 20 mg PO DAILY #30 tab 01/02/22 01/13/22 Rx hydrALAZINE HCL 100 mg PO Q8H #0 01/02/22 01/13/22 Rx Carvedilol [Coreg] 25 mg PO BID-W/MEALS 01/13/22 01/13/22 History predniSONE See Taper PO DIRECTED 01/13/22 01/13/22 History Allergies Allergy/AdvReac Type Severity Reaction Status Date / Time amoxicillin Allergy Anaphylaxis Verified 01/13/22 21:45 Penicillins Allergy Anaphylaxis Verified 01/13/22 21:45 zolpidem [From Ambien] AdvReac Confusion/A Verified 01/13/22 21:45 MS Physical Exam Vitals: Vital Signs Temp Pulse Pulse Resp BP BP Pulse Ox 01/14/22 11:43 94 18 01/14/22 11:33 91 18 01/14/22 08:25 88 20 01/14/22 08:14 76 18 96 01/14/22 07:54 90 150/72 97 01/14/22 07:32 97.6 F 75 21 137/62 83 L 01/14/22 04:58 88 01/14/22 04:52 88 01/14/22 02:52 98.4 F 88 18 143/67 98 01/14/22 01:41 84 18 115/78 94 L 01/14/22 00:30 99.1 F 87 18 121/48 93 L 01/13/22 23:21 91 18 129/68 91 L 01/13/22 22:32 89 18 105/41 95 01/13/22 21:53 99.3 F 88 20 119/69 94 L 01/13/22 20:50 87 01/13/22 20:28 87 01/13/22 20:15 89 01/13/22 19:55 22 01/13/22 19:45 98.9 F 86 24 123/68 86 L Intake and Output 01/13/22 01/14/22 01/14/22 22:59 06:59 14:59 Intake Total 30 Output Total 150 100 Balance -150 -70 Intake: Oral 30 Output: Urine 150 100 Uretheral (French) 150 Other: Voiding Method Indwelling Catheter Weight 95.254 kg 95.254 kg 95.254 kg GENERAL EXAM: Patient is alert and oriented and in mild respiratory distress HEENT: Normocephalic. Normal reaction of pupils, equal size, normal range of extraocular motion. No erythema or exudates in the throat. NECK: No masses, no nuchal rigidity. CHEST: No chest wall deformity. LUNGS: Equal air entry with no crackles or wheeze. Initial breath sounds HEART: S1 and S2 normal with no audible mumurs or gallops. Regular rhythm, f emorals equal on both sides.. ABDOMEN: No hepatosplenomegaly, normal bowel sounds, no guarding or rigidity. SKIN: No rashes CENTRAL NERVOUS SYSTEM: No focal deficits. EXTREMITIES: No cyanosis, clubbing or edema. Results 01/13/22 19:55 01/13/22 19:55 Cardiac Enzymes 01/13/22 01/13/22 Range/Units 19:55 19:55 AST 17 (14-36) U/L Troponin I 0.026 (0.000-0.034) ng/mL Coagulation 01/13/22 Range/Units 19:55 PT 11.0 (9.0-12.0) sec APTT 25.7 (22.0-30.0) sec CBC 01/13/22 Range/Units 19:55 WBC 20.4 H (3.8-10.6) k/uL RBC 4.19 (3.80-5.40) m/uL Hgb 10.4 L (11.4-16.0) gm/dL Hct 35.5 (34.0-46.0) % Plt Count 90 L (150-450) k/uL Comprehensive Metabolic Panel 01/13/22 Range/Units 19:55 Sodium 137 (137-145) mmol/L Potassium 4.6 (3.5-5.1) mmol/L Chloride 96 L (98-107) mmol/L Carbon Dioxide 38 H (22-30) mmol/L BUN 42 H (7-17) mg/dL Creatinine 1.44 H (0.52-1.04) mg/dL Glucose 185 H (74-99) mg/dL Calcium 8.0 L (8.4-10.2) mg/dL AST 17 (14-36) U/L ALT 22 (4-34) U/L Alkaline Phosphatase 64 (38-126) U/L Total Protein 5.4 L (6.3-8.2) g/dL Albumin 3.3 L (3.5-5.0) g/dL Current Medications Generic Name Dose Route Start Last Admin Trade Name Freq PRN Reason Stop Dose Admin Albuterol/Ipratropium 3 ml 01/14/22 08:00 01/14/22 11:33 Ipratropium-Albuterol 3 Ml Neb INHALATION 3 ml RT-QID DAE Administration Albuterol/Ipratropium 3 ml 01/14/22 02:50 01/14/22 04:50 Ipratropium-Albuterol 3 Ml Neb INHALATION 3 ml RT-Q2H PRN Administration Shortness Of Breath Or Wheezing Alprazolam 0.5 mg 01/14/22 10:27 Alprazolam 0.5 Mg Tab PO HS PRN Anxiety Amlodipine Besylate 10 mg 01/15/22 09:00 Amlodipine 10 Mg Tab PO DAILY [facility] Budesonide/Formoterol Fumarate 2 puff 01/14/22 08:00 01/14/22 08:14 Symbicort 80-4.5 Mcg Inhaler INHALATION 2 puff RT-BID DAE Administration Buspirone HCl 5 mg 01/14/22 16:00 Buspirone Hcl 5 Mg Tab PO TID [facility] Carvedilol 25 mg 01/14/22 17:30 Carvedilol 12.5 Mg Tab PO BID-W/MEALS [facility] Furosemide 40 mg 01/14/22 21:00 Furosemide 10 Mg/Ml 4 Ml Vial IV Q12HR [facility] Levofloxacin 750 mg/ IV 150 mls @ 100 mls/hr 01/14/22 23:00 01/13/22 22:46 Solution IVPB Not Given Q24H [facility] Protocol Cefepime HCl 2 gm/ Sodium 100 mls @ 25 mls/hr 01/14/22 11:00 01/14/22 13:34 Chloride IVPB 25 mls/hr Q12HR [facility] Administration Protocol Insulin Aspart 10 unit 01/14/22 12:30 01/14/22 13:22 Insulin Aspart (Novolog) 100 Unit/Ml Vial SQ Not Given AC-TID [facility] Isosorbide Mononitrate 30 mg 01/15/22 09:00 Isosorbide Mononitrate Er 30 Mg Tab.Er.24h PO DAILY [facility] Levothyroxine Sodium 88 mcg 01/15/22 06:30 Levothyroxine 88 Mcg Tab PO DAILY@0630 [facility] Montelukast Sodium 10 mg 01/14/22 21:00 Montelukast 10 Mg Tab PO HS [facility] Pravastatin Sodium 40 mg 01/14/22 21:00 Pravastatin Sodium 40 Mg Tab PO HS DAE Sertraline HCl 100 mg 01/14/22 21:00 Sertraline 100 Mg Tab PO HS DAE Tamsulosin HCl 0.4 mg 01/15/22 08:30 Tamsulosin 0.4 Mg Cap.Er.24h PO PC-BRKFST DAE Intake and Output 01/13/22 01/14/22 01/14/22 22:59 06:59 14:59 Intake Total 30 Output Total 150 100 Balance -150 -70 Intake: Oral 30 Output: Urine 150 100 Uretheral (French) 150 Other: Voiding Method Indwelling Catheter Weight 95.254 kg 95.254 kg 95.254 kg Patient Weight 01/15/22 06:59 Weight 95.254 kg 01/13/22 19:55 01/13/22 19:55 EKG Interpretations (text) Sinus rhythm Assessment and Plan (1) Acute on chronic diastolic CHF (congestive heart failure) Current Visit: Yes Status: Acute Code(s): I50.33 - ACUTE ON CHRONIC DIASTOLIC (CONGESTIVE) HEART FAILURE SNOMED Code(s): 476388583 (2) Acute and chronic respiratory failure with hypoxia Current Visit: No Status: Acute Code(s): J96.21 - ACUTE AND CHRONIC RESPIRATORY FAILURE WITH HYPOXIA SNOMED Code(s): 67874537 (3) Multifocal pneumonia Current Visit: No Status: Acute Code(s): J18.9 - PNEUMONIA, UNSPECIFIED ORGANISM SNOMED Code(s): 394500676 Plan: Continue current treatment with antibiotics and also IV diuretics. Follow-up chest x-ray. Echocardiogram done recently showed normal LV function. Further determination depend upon the clinical course
[2022-01-14 16:52] LABS: Glucose,Whole Blood 263 mg/dL (75-99)
[2022-01-14] MEDS: busPIRone HCl 5 MG TAB PO SCH ×2 (17:05→20:32)
[2022-01-14] MEDS: carvediloL 12.5 MG TAB PO SCH (17:10)
--- NOTE | 2022-01-14 17:30 | P.HPIM ---
History of Present Illness This is a pleasant 71 years old female with past medical history of COPD, Diabetes Mellitus, Hypertension, ARDS secondary to pneumonia more than 10 years ago requiring tracheostomy tube insertion, COPD with established FEV1 of 41% of predicted, She presents because of worsening dyspnea especially over the last 2 days associated with some coughing especially in the morning but no chest pain. Associated with. Mild pitting edema noted to bilateral lower extremities. At home she uses 6 L per minute of oxygen and her currently she is on 12 units. She denies headache or weakness or numbness. No vomiting or diarrhea or abdominal pain. No urinary complaint. No fever. She denies smoking, alcohol or illicit drugs Patient is hypoxic and requiring 12 L of oxygen via nasal cannula to achieve saturation low 90s. Patient is afebrile. Leukocytosis of 20.4. Hemoglobin Is 10.4. INR Is 1.1. Creatinine 1.4 compared to baseline of 1.8-2.2 Chest x-ray: Chest x-ray reviewed by myself showing interval worsening of scattered airspace opacity projecting over the heart, correlate for pneumonia. Which is worse than chest x-ray done about 2 weeks ago, CHF is not excluded EKG: Sinus rhythm with sinus arrhythmia at [address] T changes In the emergency room patient received Lasix and breathing treatment Review of Systems Review of systems CONSTITUTIONAL: No fever, no malaise, no fatigue. HEENT: No recent visual problems or hearing problems. Denied any sore throat. CARDIOVASCULAR: No orthopnea, PND, no palpitations, no syncope. PULMONARY: No chest wall tenderness, no hemoptysis. GASTROINTESTINAL: No diarrhea, no nausea, no vomiting, no abdominal pain. Normoactive bowel sounds. NEUROLOGICAL: No headaches, no weakness, no numbness. HEMATOLOGICAL: Denies any bleeding or petechiae. GENITOURINARY: Denies any burning micturition, frequency, or urgency. MUSCULOSKELETAL/RHEUMATOLOGICAL: Denies any joint pain, swelling, or any muscle pain. ENDOCRINE: Denies any polyuria or polydipsia. Past Medical History Past Medical History: COPD, Diabetes Mellitus, Hypertension Additional Past Medical History / Comment(s): ARDS secondary to pneumonia more than 10 years ago requiring tracheostomy tube insertion, COPD with established FEV1 of 41% of predicted, diabetes mellitus, hypertension, history of morbid obesity History of Any Multi-Drug Resistant Organisms: None Reported Past Surgical History: Cholecystectomy, Hysterectomy Past Anesthesia/Blood Transfusion Reactions: No Reported Reaction Past Psychological History: Anxiety Smoking Status: Former smoker Past Alcohol Use History: None Reported Past Drug Use History: None Reported - Past Family History Mother Family Medical History: Congestive Heart Failure (CHF), Diabetes Mellitus Additional Family Medical History / Comment(s): The patient's mother had congestion heart failure and diabetes mellitus in the father had Parkinson's disease. Medications and Allergies Home Medications Medication Instructions Recorded Confirmed Type Albuterol Sulfate [Proair Hfa] 1 - 2 puff INHALATION RT-Q6H PRN 05/22/19 01/13/22 History Levothyroxine Sodium [Synthroid] 88 mcg PO DAILY 05/22/19 01/13/22 History Montelukast [Singulair] 10 mg PO HS 05/22/19 01/13/22 History Pravastatin Sodium [Pravachol] 40 mg PO HS 05/22/19 01/13/22 History Thyroid,Pork [Field Operations Coordinator Thyroid] 30 mg PO DAILY 05/22/19 01/13/22 History amLODIPine [Norvasc] 10 mg PO DAILY 05/22/19 01/13/22 History Budesonide [Pulmicort] 0.5 mg INHALATION RT-BID 12/16/21 01/13/22 History Ergocalciferol (Vitamin D2) 1,250 mcg PO CALIXTO 12/16/21 01/13/22 History [Drisdol (50,000 Iu)] Iron 18 mg PO BID 12/16/21 01/13/22 History busPIRone HCl [Buspar] 5 mg PO TID 12/16/21 01/13/22 History Budesonide/Formoterol Fumarate 2 puff INHALATION RT-BID 12/17/21 01/13/22 History [Symbicort 80-4.5 Mcg Inhaler] ALPRAZolam [Xanax] 0.5 mg PO HS PRN #3 tab 01/02/22 01/13/22 Rx INSULIN ASPART (NovoLOG) [NovoLOG 10 unit SQ AC-TID #10 ml 01/02/22 01/13/22 Rx (formulary)] Insulin Glargine [Lantus Vial] 20 unit SQ HS #10 ml 01/02/22 01/13/22 Rx Ipratropium-Albuterol Nebulize 3 ml INHALATION RT-Q4H PRN #0 01/02/22 01/13/22 Rx [Duoneb 0.5 mg-3 mg/3 ml Soln] Ipratropium-Albuterol Nebulize 3 ml INHALATION RT-QID ml 01/02/22 01/13/22 Rx [Duoneb 0.5 mg-3 mg/3 ml Soln] Isosorbide Mononitrate ER [Imdur] 30 mg PO DAILY #30 tablet 01/02/22 01/13/22 Rx Sertraline [Zoloft] 100 mg PO HS #0 01/02/22 01/13/22 Rx Tamsulosin [Flomax] 0.4 mg PO PC-BRKFST #30 01/02/22 01/13/22 Rx Torsemide [Demadex] 20 mg PO DAILY #30 tab 01/02/22 01/13/22 Rx hydrALAZINE HCL 100 mg PO Q8H #0 01/02/22 01/13/22 Rx Carvedilol [Coreg] 25 mg PO BID-W/MEALS 01/13/22 01/13/22 History predniSONE See Taper PO DIRECTED 01/13/22 01/13/22 History Allergies Allergy/AdvReac Type Severity Reaction Status Date / Time amoxicillin Allergy Anaphylaxis Verified 01/13/22 21:45 Penicillins Allergy Anaphylaxis Verified 01/13/22 21:45 zolpidem [From Ambien] AdvReac Confusion/A Verified 01/13/22 21:45 MS Physical Exam Vitals: Vital Signs Temp Pulse Pulse Resp BP BP Pulse Ox 01/14/22 08:25 88 20 01/14/22 08:14 76 18 96 01/14/22 07:54 90 150/72 97 01/14/22 07:32 97.6 F 75 21 137/62 83 L 01/14/22 04:58 88 01/14/22 04:52 88 01/14/22 02:52 98.4 F 88 18 143/67 98 01/14/22 01:41 84 18 115/78 94 L 01/14/22 00:30 99.1 F 87 18 121/48 93 L 01/13/22 23:21 91 18 129/68 91 L 01/13/22 22:32 89 18 105/41 95 01/13/22 21:53 99.3 F 88 20 119/69 94 L 01/13/22 20:50 87 01/13/22 20:28 87 01/13/22 20:15 89 01/13/22 19:55 22 01/13/22 19:45 98.9 F 86 24 123/68 86 L Intake and Output 01/13/22 01/14/22 01/14/22 22:59 06:59 14:59 Intake Total 30 Output Total 150 100 Balance -150 -70 Intake: Oral 30 Output: Urine 150 100 Uretheral (French) 150 Other: Voiding Method Indwelling Catheter Weight 95.254 kg 95.254 kg 95.254 kg -GENERAL: The patient is alert and oriented x3, not in any acute distress. Morbidly obese HEENT: Pupils are round and equally reacting to light. EOMI. No scleral icterus. No conjunctival pallor. Normocephalic, atraumatic. No pharyngeal erythema. No thyromegaly. CARDIOVASCULAR: S1 and S2 present. No murmurs, rubs, or gallops. -PULMONARY: Chest is clear to auscultation, no wheezing. Bilateral basal crepitation, limited air entry on both sides ABDOMEN: Soft, nontender, nondistended, normoactive bowel sounds. No palpable organomegaly. MUSCULOSKELETAL: No joint swelling or deformity. EXTREMITIES: No cyanosis, clubbing, or pedal edema. NEUROLOGICAL: Gross neurological examination did not reveal any focal deficits. SKIN: No rashes. no petechiae. Results CBC & Chem 7: 01/13/22 19:55 01/13/22 19:55 Labs: Abnormal Lab Results - Last 24 Hours (Table) 01/13/22 01/13/22 01/14/22 Range/Units 19:55 19:55 06:57 WBC 20.4 H (3.8-10.6) k/uL Hgb 10.4 L (11.4-16.0) gm/dL MCH 24.8 L (25.0-35.0) pg MCHC 29.3 L (31.0-37.0) g/dL RDW 17.2 H (11.5-15.5) % Plt Count 90 L (150-450) k/uL Neutrophils # (Manual) 19.10 H (1.3-7.7) k/uL Lymphocytes # (Manual) 0.41 L (1.0-4.8) k/uL Metamyelocytes # (Man) 0.20 H (0) k/uL Chloride 96 L (98-107) mmol/L Carbon Dioxide 38 H (22-30) mmol/L BUN 42 H (7-17) mg/dL Creatinine 1.44 H (0.52-1.04) mg/dL Glucose 185 H (74-99) mg/dL POC Glucose (mg/dL) 191 H (75-99) mg/dL Calcium 8.0 L (8.4-10.2) mg/dL Magnesium 1.5 L (1.6-2.3) mg/dL Total Protein 5.4 L (6.3-8.2) g/dL Albumin 3.3 L (3.5-5.0) g/dL Thrombosis Risk Factor Assmnt - Choose All That Apply Each Factor Represents 1 point: Heart failure (<1month) Each Risk Factor Represents 2 Points: Age 61-74 years Thrombosis Risk Factor Assessment Total Risk Factor Score: 3 Thrombosis Risk Factor Assessment Level: Moderate Risk Assessment and Plan Assessment: Acute hypoxic respiratory failure Acute congestive heart failure. Acute hospital acquired pneumonia Anemia, normochromic normocytic Chronic kidney disease, stage III Diabetes mellitus Hypertension COPD, acute exacerbation Plan: This is a pleasant 71 years old female who presents with CHF and the left cord pneumonia pneumonia and hypoxia Continue with Lasix Continue with antibiotic, currently on Levaquin. Since sputum culture. Check forcalcitonin Cardiology and pulmonary consult Labs and medication were reviewed.. Continue same treatment. Continue with symptomatic treatment. Resume home medication. Monitor lytes and vitals. DVT and GI prophylaxis. Further recommendations depends on the clinical course of the patient DVT prophylaxis: Subcutaneous heparin GI Prophylaxis: Pepcid PT/OT: Pending Prognosis is guarded
[2022-01-14] MEDS: SERTRALINE 100 MG TAB PO SCH (20:32)
[2022-01-14] MEDS: MONTELUKAST 10 MG TAB PO SCH (20:32)
[2022-01-14] MEDS: PRAVASTATIN SODIUM 40 MG TAB PO SCH (20:32)
[2022-01-14] MEDS: FUROSEMIDE 10 MG/ML 4 ML VIAL IV SCH (20:32)
[2022-01-14] MEDS ORDERED: FAMOTIDINE 20 MG/2 ML VIAL IV SCH ×2 (21:00)
[2022-01-14 21:38] LABS: Glucose,Whole Blood 133 mg/dL (75-99)
[2022-01-15] MEDS: LEVOFLOXACIN 750MG-D5W PMX 750 MG in DEXTROSE/WATER 1 150ML.BAG IVPB SCH (00:10)
[2022-01-15] MEDS: LEVOTHYROXINE 88 MCG TAB PO SCH (05:45)
[2022-01-15 06:45] LABS: Glucose,Whole Blood 102 mg/dL (75-99)
[2022-01-15] MEDS: INSULIN ASPART (NovoLOG) 100 UNIT/ML VIAL SQ SCH ×3 (07:48→17:53)
[2022-01-15] MEDS: carvediloL 12.5 MG TAB PO SCH ×2 (07:51→17:08)
[2022-01-15] MEDS: FUROSEMIDE 10 MG/ML 4 ML VIAL IV SCH (07:51)
[2022-01-15] MEDS: TAMSULOSIN 0.4 MG CAP.ER.24H PO SCH (07:51)
[2022-01-15] MEDS: busPIRone HCl 5 MG TAB PO SCH ×3 (07:52→21:54)
[2022-01-15] MEDS: ISOSORBIDE MONONITRATE ER 30 MG TAB.ER.24H PO SCH (07:52)
[2022-01-15] MEDS: CEFEPIME 2 GM in SODIUM CHLORIDE 0.9% 100 ML IVPB SCH (07:52)
[2022-01-15] MEDS: IPRATROPIUM-ALBUTEROL 3 ML NEB INHALATION SCH ×4 (07:59→21:05)
[2022-01-15] MEDS: SYMBICORT 80-4.5 MCG INHALER INHALATION SCH ×2 (07:59→21:05)
[2022-01-15] MEDS ORDERED: NITROGLYCERIN SL TABS 0.4 MG TAB SUBLINGUAL PRN (08:14)
[2022-01-15] MEDS ORDERED: TORSEMIDE 20 MG TAB PO SCH (09:00)
[2022-01-15] MEDS ORDERED: amLODIPine 10 MG TAB PO SCH (09:00)
[2022-01-15 09:50] LABS: African American GFR (CKD) 21.6 (60.0-200.0); Anion Gap 13.7 mmol/L (10.00-18.00); BUN/Creat Ratio 22.51 Ratio (12.00-20.00); Blood Urea Nitrogen 56.5 mg/dL (9.0-27.0); Calcium 8.2 mg/dL (8.7-10.3); Magnesium 1.6 mg/dL (1.5-2.4); Non-African American GFR(CKD) 18.6 (60.0-200.0); Potassium 4.6 mmol/L (3.5-5.5)
[2022-01-15] MEDS: HEPARIN SODIUM,PORCINE/PF 5,000 UNIT/0.5 ML SYRINGE SQ SCH ×2 (10:32→21:54)
[2022-01-15] MEDS: FAMOTIDINE 20 MG/2 ML VIAL IV SCH ×2 (10:32→21:54)
[2022-01-15 11:34] LABS: Glucose,Whole Blood 109 mg/dL (75-99)
[2022-01-15 12:00] LABS: Basophils # (A) 0 X 10*3/uL (0.00-0.10); Basophils % (A) 0 %; Eosinophils # (A) 0.03 X 10*3/uL (0.04-0.35); Eosinophils % (A) 0.4 %; HCT 29.3 % (37.2-46.3); HGB 8.1 g/dL (12.0-15.0); Immature Grans, Automated 0.7 %; Lymphocytes # (A) 0.29 X 10*3/uL (0.90-5.00); Lymphocytes % (A) 3.5 %; MCHC 27.6 g/dL (32.0-37.0); MCV 86.9 fL (80.0-97.0); Monocytes # (A) 0.35 X 10*3/uL (0.20-1.00); Monocytes % (A) 4.2 %; NRBC Per 100 WBC 0 /100 WBCS (0.0-0.0); Neutrophils # (A) 7.51 X 10*3/uL (1.80-7.70); Neutrophils % (A) 91.2 %; Platelet Count 61 X 10*3/uL (140-440); RBC 3.37 X 10*6/uL (4.10-5.20); RDW 17.7 % (11.5-14.5); WBC 8.24 X 10*3/uL (4.50-10.00)
[2022-01-15 12:01] LABS: Elliptocytes 2+; Hypochromasia (M) 2+; Immature Platelet Fraction 4.9 % (1.1-6.1)
--- NOTE | 2022-01-15 12:49 | P.PN ---
Subjective Progress Note Date: 01/15/22 On today's evaluation of 01/15/2022, the patient is stable. The patient is currently on 8 L of O2 by nasal cannula. Slightly less short of breath compared to yesterday. The patient was given IV Lasix yesterday and the patient has developed some interval worsening in the creatinine which is up to 2.5. Nevertheless, the overall fluid balance has been -1.1 L over the past 24 hours. On today's blood work, the BUN is at 56 with a creatinine of 2.5. His serum bicarbonate 29 with a potassium level of 4.6. The pro calcitonin level is at 4.08. The patient is contemplated to O2 by nasal cannula. The patient is on a combination of cefepime and Levaquin. Cultures still pending for now. Meanwhile, the patient was receiving Lasix 40 mg IV every 12 hours and I'm going to reduce the dose with close monitoring of the renal function to prevent any acute kidney injury on this patient. She is resting comfortably in bed. Objective - Vital Signs Vital signs: Vital Signs Temp 98.3 F 01/15/22 08:14 Pulse 89 01/15/22 11:49 Resp 18 01/15/22 08:14 BP 123/71 01/15/22 08:51 Pulse Ox 93 L 01/15/22 08:41 Intake & Output 01/14/22 01/15/22 01/15/22 18:59 06:59 18:59 Intake Total 180 Output Total 320 1000 Balance -140 -1000 Weight 95.254 kg Intake: Oral 180 Output: Urine 320 1000 Uretheral (French) 320 Other: Voiding Method Indwelling Catheter Indwelling Catheter Indwelling Catheter # Voids 3 # Bowel Movements 4 1 - Exam GENERAL EXAM: 71-year-old white female, resting in bed, currently on 8 L of oxygen pulse ox is 97% does not appear to be in any acute distress comfortable in no apparent distress. HEAD: Normocephalic/atraumatic. EYES: Normal reaction of pupils, equal size. Conjunctiva pink, sclera white. NOSE: Clear with pink turbinates. THROAT: No erythema or exudates. NECK: No masses, no JVD, no thyroid enlargement, no adenopathy. CHEST: No chest wall deformity. Symmetrical expansion. LUNGS: Diminished air entry with no crackles, wheeze, rhonchi or dullness. CVS: Regular rate and rhythm, normal S1 and S2, no gallops, no murmurs, no rubs ABDOMEN: Soft, nontender. No hepatosplenomegaly, normal bowel sounds, no guarding or rigidity. EXTREMITIES: No clubbing, no edema, no cyanosis, 2+ pulses and upper and lower extremities. MUSCULOSKELETAL: Muscle strength and tone normal. SPINE: No scoliosis or deformity SKIN: No rashes CENTRAL NERVOUS SYSTEM: Alert and oriented -3. No focal deficits, tone is normal in all 4 extremities. PSYCHIATRIC: Alert and oriented -3. Appropriate affect. Intact judgment and insight. - Labs CBC & Chem 7: 01/15/22 03:53 01/15/22 04:00 Labs: Abnormal Lab Results - Last 24 Hours (Table) 01/14/22 01/14/22 01/14/22 Range/Units 13:19 16:47 21:36 RBC (4.10-5.20) X 10*6/uL Hgb (12.0-15.0) g/dL Hct (37.2-46.3) % MCH (27.0-32.0) pg MCHC (32.0-37.0) g/dL RDW (11.5-14.5) % Plt Count (140-440) X 10*3/uL Plt Count Comment Immature Gran # (0.00-0.04) X 10*3/uL Lymphocytes # (0.90-5.00) X 10*3/uL Eosinophils # (0.04-0.35) X 10*3/uL Carbon Dioxide (20.0-27.5) mmol/L BUN (9.0-27.0) mg/dL Creatinine (0.6-1.5) mg/dL Est GFR (CKD-EPI)AfAm (60.0-200.0) Est GFR (CKD-EPI)NonAf (60.0-200.0) BUN/Creatinine Ratio (12.00-20.00) Ratio POC Glucose (mg/dL) 263 H 133 H (75-99) mg/dL Calcium (8.7-10.3) mg/dL Procalcitonin 3.87 H (0.02-0.09) ng/mL 01/15/22 01/15/22 01/15/22 Range/Units 03:53 03:53 04:00 RBC 3.37 L (4.10-5.20) X 10*6/uL Hgb 8.1 L (12.0-15.0) g/dL Hct 29.3 L (37.2-46.3) % MCH 24.0 L (27.0-32.0) pg MCHC 27.6 L (32.0-37.0) g/dL RDW 17.7 H (11.5-14.5) % Plt Count 61 L (140-440) X 10*3/uL Plt Count Comment DECREASED A Immature Gran # 0.06 H (0.00-0.04) X 10*3/uL Lymphocytes # 0.29 L (0.90-5.00) X 10*3/uL Eosinophils # 0.03 L (0.04-0.35) X 10*3/uL Carbon Dioxide 29.0 H (20.0-27.5) mmol/L BUN 56.5 H (9.0-27.0) mg/dL Creatinine 2.5 H (0.6-1.5) mg/dL Est GFR (CKD-EPI)AfAm 21.6 L (60.0-200.0) Est GFR (CKD-EPI)NonAf 18.6 L (60.0-200.0) BUN/Creatinine Ratio 22.51 H (12.00-20.00) Ratio POC Glucose (mg/dL) (75-99) mg/dL Calcium 8.2 L (8.7-10.3) mg/dL Procalcitonin 4.08 H (0.02-0.09) ng/mL 01/15/22 01/15/22 Range/Units 06:42 11:33 RBC (4.10-5.20) X 10*6/uL Hgb (12.0-15.0) g/dL Hct (37.2-46.3) % MCH (27.0-32.0) pg MCHC (32.0-37.0) g/dL RDW (11.5-14.5) % Plt Count (140-440) X 10*3/uL Plt Count Comment Immature Gran # (0.00-0.04) X 10*3/uL Lymphocytes # (0.90-5.00) X 10*3/uL Eosinophils # (0.04-0.35) X 10*3/uL Carbon Dioxide (20.0-27.5) mmol/L BUN (9.0-27.0) mg/dL Creatinine (0.6-1.5) mg/dL Est GFR (CKD-EPI)AfAm (60.0-200.0) Est GFR (CKD-EPI)NonAf (60.0-200.0) BUN/Creatinine Ratio (12.00-20.00) Ratio POC Glucose (mg/dL) 102 H 109 H (75-99) mg/dL Calcium (8.7-10.3) mg/dL Procalcitonin (0.02-0.09) ng/mL Microbiology - Last 24 Hours (Table) 01/13/22 20:25 Blood Culture - Preliminary Blood No Growth after 24 hours 01/13/22 20:08 Blood Culture - Preliminary Blood No Growth after 24 hours Assessment and Plan Plan: #1. Acute on chronic hypoxic respiratory failure, related to acute exacerbation of CHF with diastolic dysfunction, the chest x-ray showing evidence of pulmonary edema. There is interval worsening in the pulmonary edema and the patient has presented to the hospital because of worsening hypoxemia and curren tly she currently on 8 L of oxygen by nasal cannula, she was on 6 L at home. She was unable to utilize a home BiPAP. Her white cell count was elevated at time of admission at 20.4 and currently is down to 8.2. The patient responded well to diuresis and the patient has been weaned down to 8 L of O2 by nasal cannula knowing that at the time of admission she was as high as 12 L. Her chest x-ray was consistent with pulmonary edema/CHF. #2. 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 Prior history of acute respiratory distress syndrome requiring prolonged intubation and mechanical ventilation and eventual tracheostomy tube insertion with subsequent decannulation #4. History of severe COPD, the baseline FEV1 of 41% of predicted #5. History of hypothyroidism #6. History of diabetes mellitus type 2 #7. History of hypertension #8. Previous COVID-19 infection in September 2021 #9. Chronic kidney disease stage IIIB #10. Moderately severe pulmonary hypertension #11. Morbid obesity with BMI of 38 kg/m #12. Acute urinary tract infection related to enterococcus faecalis, completed a course of daptomycin #13 leukocytosis, improved and her white cell count is down to 8.2 and currently the patient on a combination of cefepime and Levaquin Plan Drop the Lasix dose to 40 mg every 24 hours Monitor renal function Monitor oxygenation we'll start the patient on empiric antibiotic coverage with a combination of cefepime and Levaquin The white cell count is improved No need for BiPAP therapy at this point in time Continue bronchodilators Resume all medications from home I'm going to drop the Lasix dose to 40 mg every 24 hours Obtain blood cultures and urine cultures, these are still pending We'll continue to follow
[2022-01-15 16:50] LABS: Glucose,Whole Blood 168 mg/dL (75-99)
[2022-01-15] MEDS: ACETAMINOPHEN TAB 325 MG TAB PO PRN (17:07)
--- NOTE | 2022-01-15 18:16 | P.PN ---
Subjective This is a pleasant 71 years old female with past medical history of COPD, Diabetes Mellitus, Hypertension, ARDS secondary to pneumonia more than 10 years ago requiring tracheostomy tube insertion, COPD with established FEV1 of 41% of predicted, She presents because of worsening dyspnea especially over the last 2 days associated with some coughing especially in the morning but no chest pain. Associated with. Mild pitting edema noted to bilateral lower extremities. At home she uses 6 L per minute of oxygen and her currently she is on 12 units. She denies headache or weakness or numbness. No vomiting or diarrhea or abdominal pain. No urinary complaint. No fever. She denies smoking, alcohol or illicit drugs Patient is hypoxic and requiring 12 L of oxygen via nasal cannula to achieve saturation low 90s. Patient is afebrile. Leukocytosis of 20.4. Hemoglobin Is 10.4. INR Is 1.1. Creatinine 1.4 compared to baseline of 1.8-2.2 Chest x-ray: Chest x-ray reviewed by myself showing interval worsening of scattered airspace opacity projecting over the heart, correlate for pneumonia. Which is worse than chest x-ray done about 2 weeks ago, CHF is not excluded EKG: Sinus rhythm with sinus arrhythmia at [address] T changes In the emergency room patient received Lasix and breathing treatment 01/15/2022 Patient state in bed most of the time, fully awake, she is on 10 L oxygen via nasal cannula she has some chest pain this morning looks like pleuritic related to her pneumonia. Troponin were negative. She denies any other complaints. She is hemodynamically stable however. She has evidence of decreased blood cells with WBCs came back to normal today at 8.4, platelets 61, hemoglobin 8.1. This could be related to her sepsis. However she is also on subcu heparin but start this morning so selectively is the culprit for her thrombocytopenia however of her platelets below 50,000 then discontinue subcu heparin Her creatinine went up 1.4 to 2.5 daily. 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 there is no nephrotoxic agents. We will lower her Norvasc 10 mg down to 5 mg and also Lasix 40 mg twice a day into once daily. Also will give one-time dose of midodrine tonight 1 dose. she has a French catheter. We will send urine analysis. Treatment of her creatinine. She remains on cefepime, Levaquin and IV Lasix as above Review of systems CONSTITUTIONAL: No fever, no malaise, no fatigue. HEENT: No recent visual problems or hearing problems. Denied any sore throat. CARDIOVASCULAR: No orthopnea, PND, no palpitations, no syncope. PULMONARY: No shortness of breath, no cough, no hemoptysis. GASTROINTESTINAL: No diarrhea, no nausea, no vomiting, no abdominal pain. Normoactive bowel sounds. NEUROLOGICAL: No headaches, no weakness, no numbness. Active Medications Generic Name Dose Route Start Last Admin Trade Name Freq PRN Reason Stop Dose Admin Acetaminophen 325 mg 01/15/22 15:50 01/15/22 17:07 Acetaminophen Tab 325 Mg Tab PO 325 mg Q6HR PRN Administration Fever and/ or MILD Pain Albuterol/Ipratropium 3 ml 01/14/22 08:00 01/15/22 16:33 Ipratropium-Albuterol 3 Ml Neb INHALATION 3 ml RT-QID DAE Administration Albuterol/Ipratropium 3 ml 01/14/22 02:50 01/14/22 04:50 Ipratropium-Albuterol 3 Ml Neb INHALATION 3 ml RT-Q2H PRN Administration Shortness Of Breath Or Wheezing Alprazolam 0.5 mg 01/14/22 10:27 Alprazolam 0.5 Mg Tab PO HS PRN Anxiety Amlodipine Besylate 5 mg 01/16/22 09:00 Amlodipine 5 Mg Tab PO DAILY DAE Budesonide/Formoterol Fumarate 2 puff 01/14/22 08:00 01/15/22 07:59 Symbicort 80-4.5 Mcg Inhaler INHALATION 2 puff RT-BID DAE Administration Buspirone HCl 5 mg 01/14/22 16:00 01/15/22 17:08 Buspirone Hcl 5 Mg Tab PO 5 mg TID DAE Administration Carvedilol 25 mg 01/16/22 07:30 Carvedilol 12.5 Mg Tab PO BID-W/MEALS DAE Famotidine 20 mg 01/15/22 09:00 01/15/22 10:32 Famotidine 20 Mg/2 Ml Vial IV 20 mg Q12HR DAE Administration Furosemide 40 mg 01/16/22 09:00 Furosemide 10 Mg/Ml 4 Ml Vial IV Q24HR DAE Heparin Sodium (Porcine) 5,000 unit 01/15/22 09:00 01/15/22 10:32 Heparin Sodium,Porcine/Pf 5,000 Unit/0.5 Ml Syringe SQ 5,000 unit Q12HR DAE Administration Cefepime HCl 1 gm/ Sodium 50 mls @ 12.5 mls/hr 01/15/22 21:00 Chloride IVPB Q12HR [facility] Insulin Aspart 10 unit 01/14/22 12:30 01/15/22 17:53 Insulin Aspart (Novolog) 100 Unit/Ml Vial SQ Not Given AC-TID [facility] Isosorbide Mononitrate 30 mg 01/15/22 09:00 01/15/22 07:52 Isosorbide Mononitrate Er 30 Mg Tab.Er.24h PO 30 mg DAILY [facility] Administration Levofloxacin 500 mg 01/16/22 21:00 Levofloxacin 500 Mg Tab PO Q48H [facility] Levothyroxine Sodium 88 mcg 01/15/22 06:30 01/15/22 05:45 Levothyroxine 88 Mcg Tab PO 88 mcg DAILY@0630 [facility] Administration Midodrine 5 mg 01/15/22 22:00 Midodrine 5 Mg Tab PO 01/15/22 22:01 ONCE ONE Montelukast Sodium 10 mg 01/14/22 21:00 01/14/22 20:32 Montelukast 10 Mg Tab PO 10 mg HS [facility] Administration Nitroglycerin 0.4 mg 01/15/22 08:14 01/15/22 08:34 Nitroglycerin Sl Tabs 0.4 Mg Tab SUBLINGUAL 0.4 mg Q5M PRN Administration Chest Pain Pravastatin Sodium 40 mg 01/14/22 21:00 01/14/22 20:32 Pravastatin Sodium 40 Mg Tab PO 40 mg HS [facility] Administration Sertraline HCl 100 mg 01/14/22 21:00 01/14/22 20:32 Sertraline 100 Mg Tab PO 100 mg HS [facility] Administration Tamsulosin HCl 0.4 mg 01/15/22 08:30 01/15/22 07:51 Tamsulosin 0.4 Mg Cap.Er.24h PO 0.4 mg [id number] DAE Administration Objective - Vital Signs Vital signs: Vital Signs Temp 98.3 F 01/15/22 08:14 Pulse 91 01/15/22 08:51 Resp 18 01/15/22 08:14 BP 123/71 01/15/22 08:51 Pulse Ox 93 L 01/15/22 08:41 Intake & Output 01/14/22 01/15/22 01/15/22 18:59 06:59 18:59 Intake Total 180 Output Total 320 1000 Balance -140 -1000 Weight 95.254 kg Intake: Oral 180 Output: Urine 320 1000 Uretheral (French) 320 Other: Voiding Method Indwelling Catheter Indwelling Catheter Indwelling Catheter # Voids 3 # Bowel Movements 4 1 - Exam -GENERAL: The patient is alert and oriented x3, not in any acute distress. Morbidly obese HEENT: Pupils are round and equally reacting to light. EOMI. No scleral icterus. No conjunctival pallor. Normocephalic, atraumatic. No pharyngeal erythema. No thyromegaly. CARDIOVASCULAR: S1 and S2 present. No murmurs, rubs, or gallops. -PULMONARY: Chest is clear to auscultation, no wheezing. Bilateral basal crepitation, limited air entry on both sides ABDOMEN: Soft, nontender, nondistended, normoactive bowel sounds. No palpable organomegaly. MUSCULOSKELETAL: No joint swelling or deformity. EXTREMITIES: No cyanosis, clubbing, or pedal edema. NEUROLOGICAL: Gross neurological examination did not reveal any focal deficits. SKIN: No rashes. no petechiae. - Labs CBC & Chem 7: 01/15/22 03:53 01/15/22 04:00 Labs: Abnormal Lab Results - Last 24 Hours (Table) 01/14/22 01/14/22 01/14/22 Range/Units 12:01 13:19 16:47 Carbon Dioxide (20.0-27.5) mmol/L BUN (9.0-27.0) mg/dL Creatinine (0.6-1.5) mg/dL Est GFR (CKD-EPI)AfAm (60.0-200.0) Est GFR (CKD-EPI)NonAf (60.0-200.0) BUN/Creatinine Ratio (12.00-20.00) Ratio POC Glucose (mg/dL) 209 H 263 H (75-99) mg/dL Calcium (8.7-10.3) mg/dL Procalcitonin 3.87 H (0.02-0.09) ng/mL 0401/15/22 01/15/22 Range/Units 21:36 03:53 04:00 Carbon Dioxide 29.0 H (20.0-27.5) mmol/L BUN 56.5 H (9.0-27.0) mg/dL Creatinine 2.5 H (0.6-1.5) mg/dL Est GFR (CKD-EPI)AfAm 21.6 L (60.0-200.0) Est GFR (CKD-EPI)NonAf 18.6 L (60.0-200.0) BUN/Creatinine Ratio 22.51 H (12.00-20.00) Ratio POC Glucose (mg/dL) 133 H (75-99) mg/dL Calcium 8.2 L (8.7-10.3) mg/dL Procalcitonin 4.08 H (0.02-0.09) ng/mL 01/15/22 Range/Units 06:42 Carbon Dioxide (20.0-27.5) mmol/L BUN (9.0-27.0) mg/dL Creatinine (0.6-1.5) mg/dL Est GFR (CKD-EPI)AfAm (60.0-200.0) Est GFR (CKD-EPI)NonAf (60.0-200.0) BUN/Creatinine Ratio (12.00-20.00) Ratio POC Glucose (mg/dL) 102 H (75-99) mg/dL Calcium (8.7-10.3) mg/dL Procalcitonin (0.02-0.09) ng/mL Microbiology - Last 24 Hours (Table) 01/13/22 20:25 Blood Culture - Preliminary Blood No Growth after 24 hours 01/13/22 20:08 Blood Culture - Preliminary Blood No Growth after 24 hours Assessment and Plan Assessment: Acute hypoxic respiratory failure Acute congestive heart failure. Acute kidney injury on chronic kidney disease Acute hospital acquired pneumonia Anemia, normochromic normocytic Thrombocytopenia Chronic kidney disease, stage III Diabetes mellitus Hypertension COPD, no acute exacerbation Plan: This is a pleasant 71 years old female who presents with CHF and the left cord pneumonia pneumonia and hypoxia Continue with Lasix once daily Continue with antibiotic, currently on Levaquin and cefepime. Follow-up sputum culture. Cardiology and pulmonary consult Monitor platelet count closely and hemoglobin. Send urine analysis and monitor creatinine and blood pressure Labs and medication were reviewed.. Continue same treatment. Continue with symptomatic treatment. Resume home medication. Monitor lytes and vitals. DVT and GI prophylaxis. Further recommendations depends on the clinical course of the patient DVT prophylaxis: Subcutaneous heparin GI Prophylaxis: Pepcid PT/OT: Pending Prognosis is guarded Dr. Banks will resume the care of the patient tomorrow
[2022-01-15 21:42] LABS: ABG Base Excess 9.1 mmol/L; ABG HCO3 34 mmol/L (21-25); ABG Oxygen Saturation 89.5 % (94-97); ABG PCO2 55 mmHg (35-45); ABG TCO2 36 mmol/L (19-24); Allen Test Performed? Yes
[2022-01-15 21:45] LABS: Amorphous Sediment,Urine Occasional /hpf; Appearance,Urine Clear (Clear); Bacteria,Urine Rare /hpf; Bilirubin,Urine Negative (Negative); Blood,Urine Negative (Negative); Color,Urine Yellow; Glucose,Urine (UA) Negative (Negative); Hyaline Casts,Urine 20 /lpf (0-2); Ketones,Urine Negative (Negative); Leukocyte Esterase,Urine Negative (Negative); Mucus,Urine Occasional /hpf; Nitrite,Urine Negative (Negative); Protein,Urine 1+ (Negative); RBC,Urine 5 /hpf (0-5); Specific Gravity,Urine 1.012 (1.001-1.035); Squamous Epithelial Cell,Urine 1 /hpf (0-4); Urobilinogen,Urine <2.0 mg/dL (<2.0); WBC,Urine 7 /hpf (0-5)
[2022-01-15 21:47] LABS: ABG PO2 52 mmHg (83-108)
[2022-01-15] MEDS: PRAVASTATIN SODIUM 40 MG TAB PO SCH (21:54)
[2022-01-15] MEDS: CEFEPIME 1 GM in SODIUM CHLORIDE 0.9% 50 ML IVPB SCH (21:54)
[2022-01-15] MEDS: MONTELUKAST 10 MG TAB PO SCH (21:54)
[2022-01-15] MEDS: SERTRALINE 100 MG TAB PO SCH (21:54)
[2022-01-15] MEDS ORDERED: MIDODRINE 5 MG TAB PO ONE (22:00)
[2022-01-16] MEDS: LEVOTHYROXINE 88 MCG TAB PO SCH (06:01)
[2022-01-16] MEDS ORDERED: carvediloL 12.5 MG TAB PO SCH (07:30)
[2022-01-16 08:12] LABS: Glucose,Whole Blood 157 mg/dL (75-99)
[2022-01-16] MEDS: INSULIN ASPART (NovoLOG) 100 UNIT/ML VIAL SQ SCH ×3 (08:21→17:43)
[2022-01-16] MEDS: HEPARIN SODIUM,PORCINE/PF 5,000 UNIT/0.5 ML SYRINGE SQ SCH ×2 (08:21→20:09)
[2022-01-16] MEDS: carvediloL 12.5 MG TAB PO SCH ×2 (08:21→17:43)
[2022-01-16] MEDS: TAMSULOSIN 0.4 MG CAP.ER.24H PO SCH (08:22)
[2022-01-16] MEDS: CEFEPIME 1 GM in SODIUM CHLORIDE 0.9% 50 ML IVPB SCH ×2 (08:22→20:08)
[2022-01-16] MEDS: busPIRone HCl 5 MG TAB PO SCH ×3 (08:22→20:09)
[2022-01-16] MEDS: ISOSORBIDE MONONITRATE ER 30 MG TAB.ER.24H PO SCH (08:22)
[2022-01-16] MEDS: amLODIPine 5 MG TAB PO SCH (08:22)
[2022-01-16] MEDS: FAMOTIDINE 20 MG/2 ML VIAL IV SCH ×2 (08:23→20:50)
[2022-01-16] MEDS: ALPRAZolam 0.5 MG TAB PO PRN ×2 (08:29→20:50)
[2022-01-16] MEDS: IPRATROPIUM-ALBUTEROL 3 ML NEB INHALATION SCH ×4 (08:32→20:21)
[2022-01-16] MEDS: SYMBICORT 80-4.5 MCG INHALER INHALATION SCH ×2 (08:32→20:21)
[2022-01-16] MEDS ORDERED: FUROSEMIDE 10 MG/ML 4 ML VIAL IV SCH ×2 (09:00→14:45)
--- NOTE | 2022-01-16 11:09 | P.PN ---
Subjective Progress Note Date: 01/16/22 HISTORY OF PRESENT ILLNESS: This is a 71-year-old female who was recently treated for pneumonia/CHF and hypoxic respiratory failure. She has history of coronary arteries pneumonia for which she was treated in September. Patient was sent home on multiple medication including prednisone. Patient is brought back to the hospital with complaints of shortness of breath and the hypoxia. Chest x-ray showed bilateral pulmonary infiltrates, mostly in the basal area suggestive of possible pneumonia though CHF cannot be excluded. Her BNP is elevated. Her white count is 20,000. Patient is currently being treated with IV Lasix and also antibiotics. Patient seemed to be in mild to moderate distress, but doesn't appear to be in acute respiratory failure. Her sodium is 137, potassium is 4.6, bicarb is 38. Echocardiogram done on previous occasion showed normal LV function. She also obese and has severe underlying COPD. Continue current medical therapy. Further recommend depend upon the clinical course and response to the treatment. 01/16/2022 Patient examined this morning. She is sitting up in the chair. She remains on Bipap. She denies chest pain or pressure. She denies feeling short of breath. She reports she is thirsty this morning. She remains on IV lasix 40 mg daily. Fluid balance over the last 24 hours is -1150 mL. Labs from this morning are currently pending. PHYSICAL EXAM: VITAL SIGNS: Reviewed. GENERAL: Well-developed in no acute distress. NECK: Supple. No JVD or thyromegaly LUNGS: Respirations even and unlabored. Lungs diminished to auscultation bilaterally. HEART: Regular rate and rhythm. S1 and S2 heard. EXTREMITIES: Normal range of motion. No clubbing or cyanosis. Peripheral pulses intact. 1+ bilateral lower extremity edema ASSESSMENT: Acute on chronic heart failure with preserved ejection fraction Acute kidney injury Pneumonia Acute hypoxic respiratory failure COPD Hypertension Diabetes PLAN: Continue current cardiac medications Continue IV Lasix Monitor kidney function. Await results from labs this morning Daily weights Accurate I&O Further recommendations per patient's course Nurse practitioner note has been reviewed by physician. Signing provider agrees with the documented findings, assessment, and plan of care. Objective - Vital Signs Vital signs: Vital Signs Temp 98.1 F 01/16/22 08:00 Pulse 94 01/16/22 08:49 Resp 16 01/16/22 10:41 BP 137/63 01/16/22 08:00 Pulse Ox 94 L 01/16/22 08:00 Intake & Output 01/15/22 01/16/22 01/16/22 18:59 06:59 18:59 Intake Total 50 Output Total 800 400 Balance -800 -350 Intake: Intake, IV Titration 50 Amount Cefepime 1 gm In Sodium 50 Chloride 0.9% 50 ml @ 12. 5 mls/hr IVPB Q12HR DAE Rx#:[id number] Output: Urine 800 400 Other: Voiding Method Indwelling Catheter Indwelling Catheter Indwelling Catheter # Bowel Movements 2 - Labs CBC & Chem 7: 01/15/22 03:53 01/15/22 04:00 Labs: Abnormal Lab Results - Last 24 Hours (Table) 01/15/22 01/15/22 01/15/22 Range/Units 03:53 11:33 16:48 RBC 3.37 L (4.10-5.20) X 10*6/uL Hgb 8.1 L (12.0-15.0) g/dL Hct 29.3 L (37.2-46.3) % MCH 24.0 L (27.0-32.0) pg MCHC 27.6 L (32.0-37.0) g/dL RDW 17.7 H (11.5-14.5) % Plt Count 61 L (140-440) X 10*3/uL Plt Count Comment DECREASED A Immature Gran # 0.06 H (0.00-0.04) X 10*3/uL Lymphocytes # 0.29 L (0.90-5.00) X 10*3/uL Eosinophils # 0.03 L (0.04-0.35) X 10*3/uL ABG pCO2 (35-45) mmHg ABG pO2 (83-108) mmHg ABG HCO3 (21-25) mmol/L ABG Total CO2 (19-24) mmol/L ABG O2 Saturation (94-97) % POC Glucose (mg/dL) 109 H 168 H (75-99) mg/dL Urine Protein (Negative) Urine WBC (0-5) /hpf Amorphous Sediment (None) /hpf Urine Bacteria (None) /hpf Hyaline Casts (0-2) /lpf Urine Mucus (None) /hpf 01/15/22 01/15/22 01/16/22 Range/Units 21:27 21:32 08:11 RBC (4.10-5.20) X 10*6/uL Hgb (12.0-15.0) g/dL Hct (37.2-46.3) % MCH (27.0-32.0) pg MCHC (32.0-37.0) g/dL RDW (11.5-14.5) % Plt Count (140-440) X 10*3/uL Plt Count Comment Immature Gran # (0.00-0.04) X 10*3/uL Lymphocytes # (0.90-5.00) X 10*3/uL Eosinophils # (0.04-0.35) X 10*3/uL ABG pCO2 55 H (35-45) mmHg ABG pO2 52 L* (83-108) mmHg ABG HCO3 34 H (21-25) mmol/L ABG Total CO2 36 H (19-24) mmol/L ABG O2 Saturation 89.5 L (94-97) % POC Glucose (mg/dL) 157 H (75-99) mg/dL Urine Protein 1+ H (Negative) Urine WBC 7 H (0-5) /hpf Amorphous Sediment Occasional H (None) /hpf Urine Bacteria Rare H (None) /hpf Hyaline Casts 20 H (0-2) /lpf Urine Mucus Occasional H (None) /hpf Microbiology - Last 24 Hours (Table) 01/13/22 20:25 Blood Culture - Preliminary Blood No Growth after 48 hours 01/13/22 20:08 Blood Culture - Preliminary Blood No Growth after 48 hours
[2022-01-16 11:20] LABS: Glucose,Whole Blood 228 mg/dL (75-99)
[2022-01-16 11:33] LABS: ALT 13 U/L (8-44); AST 9 U/L (13-35); African American GFR (CKD) 20.7 (60.0-200.0); Albumin 3.3 g/dL (3.8-4.9); Albumin/Globulin Ratio 1.94 (1.60-3.17); Alkaline Phosphatase 59 U/L (41-126); BUN/Creat Ratio 25.42 Ratio (12.00-20.00); Bilirubin, Conjugated <0.20 mg/dL (0.20-0.40); Blood Urea Nitrogen 66.1 mg/dL (9.0-27.0); Calcium 8.5 mg/dL (8.7-10.3); Carbon Dioxide 29.3 mmol/L (20.0-27.5); Chloride 97 mmol/L (96-109); Globulin 1.7 g/dL (1.6-3.3); Glucose 133 mg/dL (70-110); Magnesium 1.8 mg/dL (1.5-2.4); Non-African American GFR(CKD) 17.8 (60.0-200.0); Potassium 4.1 mmol/L (3.5-5.5); Sodium 140 mmol/L (135-145)
[2022-01-16 11:35] LABS: Basophils # (A) 0.01 X 10*3/uL (0.00-0.10); Basophils % (A) 0.2 %; Eosinophils # (A) 0.08 X 10*3/uL (0.04-0.35); Eosinophils % (A) 1.4 %; HCT 28.3 % (37.2-46.3); HGB 7.9 g/dL (12.0-15.0); Immature Grans, Automated 0.4 %; Lymphocytes % (A) 5.3 %; MCHC 27.9 g/dL (32.0-37.0); Mean Platelet Volume 12.6 fL (9.5-12.2); Monocytes # (A) 0.19 X 10*3/uL (0.20-1.00); Monocytes % (A) 3.4 %; NRBC Per 100 WBC 0 /100 WBCS (0.0-0.0); Neutrophils # (A) 5.03 X 10*3/uL (1.80-7.70); Neutrophils % (A) 89.3 %; Platelet Count 64 X 10*3/uL (140-440); RBC 3.29 X 10*6/uL (4.10-5.20); RDW 17.9 % (11.5-14.5); WBC 5.63 X 10*3/uL (4.50-10.00)
[2022-01-16 11:36] LABS: Immature Platelet Fraction 4.5 % (1.1-6.1)
[2022-01-16] MEDS ORDERED: SODIUM CHLORIDE 0.9% 1,000 ML IV SCH (13:15)
--- NOTE | 2022-01-16 14:57 | US ---
EXAMINATION TYPE: US chest DATE OF EXAM: 01/16/2022 COMPARISON: CXR CLINICAL HISTORY: pleural effusions. Effusion TECHNIQUE: Targeted ultrasound of the posterior lower bilateral hemithoraces EXAM MEASUREMENTS: Right Pleural Effusion pocket size: No fluid pocket visualized Left Pleural Effusion pocket size: 1.7 cm Right side NOT marked for possible thoracentesis outside the dept. Left side NOT marked for possible thoracentesis outside the dept. Pulmonologists are able to review the images in the patient?s EMR. IMPRESSIONS: As above
--- NOTE | 2022-01-16 15:33 | P.PN ---
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 And post COVID-19 inflammatory changes in the lungs On today's evaluation of 01/15/2022, the patient is stable. The patient is currently on 8 L of O2 by nasal cannula. Slightly less short of breath compared to yesterday. The patient was given IV Lasix yesterday and the patient has developed some interval worsening in the creatinine which is up to 2.5. Nevertheless, the overall fluid balance has been -1.1 L over the past 24 hours. On today's blood work, the BUN is at 56 with a creatinine of 2.5. His serum bicarbonate 29 with a potassium level of 4.6. The pro calcitonin level is at 4.08. The patient is contemplated to O2 by nasal cannula. The patient is on a combination of cefepime and Levaquin. Cultures still pending for now. Meanwhile, the patient was receiving Lasix 40 mg IV every 12 hours and I'm going to reduce the dose with close monitoring of the renal function to prevent any acute kidney injury on this patient. She is resting comfortably in bed. Reevaluated today on 01/16/22, patient is now on 10 L high flow cannula, O2 saturation is marginal. Found out today that her Lasix had been placed on hold. Patient is developing worsening renal picture, however her chest x-ray seems to be worsening with worsening interstitial edema and post inflammatory changes in the lungs related to previous history of COVID-[address] the patient back on diuretics, and I will cut down her IV fluid, we'll recommend an ultrasound of the chest to determine if she needs left-sided thoracentesis. However ultrasound did not show much fluid on the left lung, hence no need for thoracentesis. Objective - Vital Signs Vital signs: Vital Signs Temp 98.1 F 01/16/22 08:00 Pulse 88 01/16/22 12:20 Resp 16 01/16/22 10:41 BP 137/63 01/16/22 08:00 Pulse Ox 94 L 01/16/22 08:00 Intake & Output 01/15/22 01/16/22 01/16/22 18:59 06:59 18:59 Intake Total 50 Output Total 800 400 275 Balance -678 -786 -678 Intake: Intake, IV Titration 50 Amount Cefepime 1 gm In Sodium 50 Chloride 0.9% 50 ml @ 12. 5 mls/hr IVPB Q12HR [facility] Rx#:[id number] Output: Urine 800 400 275 Other: Voiding Method Indwelling Catheter Indwelling Catheter Indwelling Catheter # Bowel Movements 2 - Exam GENERAL EXAM: 71-year-old white female, in no distress, on 10 L high flow c annula HEAD: Normocephalic/atraumatic. HEENT: PERRLA, EOMI, nonicteric, neck masses no JVD. CHEST: No chest wall deformity. Symmetrical expansion. LUNGS: Diminished breath sounds and crackles bilaterally. CVS: Regular rate and rhythm, normal S1 and S2, no gallops, no murmurs, no rubs ABDOMEN: These, Soft, nontender. No hepatosplenomegaly, normal bowel sounds, no guarding or rigidity. EXTREMITIES: No clubbing, no edema, no cyanosis, 2+ pulses and upper and lower extremities. MUSCULOSKELETAL: Muscle strength and tone normal. SKIN: No rashes CENTRAL NERVOUS SYSTEM: Alert oriented 3 no gross deficit PSYCHIATRIC: Normal mood, affect and normal mental status examination - Labs CBC & Chem 7: 01/16/22 07:48 01/16/22 07:48 Labs: Abnormal Lab Results - Last 24 Hours (Table) 01/15/22 01/15/22 01/15/22 Range/Units 16:48 21:27 21:32 RBC (4.10-5.20) X 10*6/uL Hgb (12.0-15.0) g/dL Hct (37.2-46.3) % MCH (27.0-32.0) pg MCHC (32.0-37.0) g/dL RDW (11.5-14.5) % Plt Count (140-440) X 10*3/uL MPV (9.5-12.2) fL Lymphocytes # (0.90-5.00) X 10*3/uL Monocytes # (0.20-1.00) X 10*3/uL ABG pCO2 55 H (35-45) mmHg ABG pO2 52 L* (83-108) mmHg ABG HCO3 34 H (21-25) mmol/L ABG Total CO2 36 H (19-24) mmol/L ABG O2 Saturation 89.5 L (94-97) % Carbon Dioxide (20.0-27.5) mmol/L BUN (9.0-27.0) mg/dL Creatinine (0.6-1.5) mg/dL Est GFR (CKD-EPI)AfAm (60.0-200.0) Est GFR (CKD-EPI)NonAf (60.0-200.0) BUN/Creatinine Ratio (12.00-20.00) Ratio Glucose (70-110) mg/dL POC Glucose (mg/dL) 168 H (75-99) mg/dL Calcium (8.7-10.3) mg/dL Conjugated Bilirubin (0.20-0.40) mg/dL AST (13-35) U/L Total Protein (6.2-8.2) g/dL Albumin (3.8-4.9) g/dL Urine Protein 1+ H (Negative) Urine WBC 7 H (0-5) /hpf Amorphous Sediment Occasional H (None) /hpf Urine Bacteria Rare H (None) /hpf Hyaline Casts 20 H (0-2) /lpf Urine Mucus Occasional H (None) /hpf 01/16/22 01/16/22 01/16/22 Range/Units 07:48 07:48 08:11 RBC 3.29 L (4.10-5.20) X 10*6/uL Hgb 7.9 L (12.0-15.0) g/dL Hct 28.3 L (37.2-46.3) % MCH 24.0 L (27.0-32.0) pg MCHC 27.9 L (32.0-37.0) g/dL RDW 17.9 H (11.5-14.5) % Plt Count 64 L (140-440) X 10*3/uL MPV 12.6 H (9.5-12.2) fL Lymphocytes # 0.30 L (0.90-5.00) X 10*3/uL Monocytes # 0.19 L (0.20-1.00) X 10*3/uL ABG pCO2 (35-45) mmHg ABG pO2 (83-108) mmHg ABG HCO3 (21-25) mmol/L ABG Total CO2 (19-24) mmol/L ABG O2 Saturation (94-97) % Carbon Dioxide 29.3 H (20.0-27.5) mmol/L BUN 66.1 H (9.0-27.0) mg/dL Creatinine 2.6 H (0.6-1.5) mg/dL Est GFR (CKD-EPI)AfAm 20.7 L (60.0-200.0) Est GFR (CKD-EPI)NonAf 17.8 L (60.0-200.0) BUN/Creatinine Ratio 25.42 H (12.00-20.00) Ratio Glucose 133 H (70-110) mg/dL POC Glucose (mg/dL) 157 H (75-99) mg/dL Calcium 8.5 L (8.7-10.3) mg/dL Conjugated Bilirubin <0.20 L (0.20-0.40) mg/dL AST 9 L (13-35) U/L Total Protein 5.0 L (6.2-8.2) g/dL Albumin 3.3 L (3.8-4.9) g/dL Urine Protein (Negative) Urine WBC (0-5) /hpf Amorphous Sediment (None) /hpf Urine Bacteria (None) /hpf Hyaline Casts (0-2) /lpf Urine Mucus (None) /hpf 01/16/22 Range/Units 11:19 RBC (4.10-5.20) X 10*6/uL Hgb (12.0-15.0) g/dL Hct (37.2-46.3) % MCH (27.0-32.0) pg MCHC (32.0-37.0) g/dL RDW (11.5-14.5) % Plt Count (140-440) X 10*3/uL MPV (9.5-12.2) fL Lymphocytes # (0.90-5.00) X 10*3/uL Monocytes # (0.20-1.00) X 10*3/uL ABG pCO2 (35-45) mmHg ABG pO2 (83-108) mmHg ABG HCO3 (21-25) mmol/L ABG Total CO2 (19-24) mmol/L ABG O2 Saturation (94-97) % Carbon Dioxide (20.0-27.5) mmol/L BUN (9.0-27.0) mg/dL Creatinine (0.6-1.5) mg/dL Est GFR (CKD-EPI)AfAm (60.0-200.0) Est GFR (CKD-EPI)NonAf (60.0-200.0) BUN/Creatinine Ratio (12.00-20.00) Ratio Glucose (70-110) mg/dL POC Glucose (mg/dL) 228 H (75-99) mg/dL Calcium (8.7-10.3) mg/dL Conjugated Bilirubin (0.20-0.40) mg/dL AST (13-35) U/L Total Protein (6.2-8.2) g/dL Albumin (3.8-4.9) g/dL Urine Protein (Negative) Urine WBC (0-5) /hpf Amorphous Sediment (None) /hpf Urine Bacteria (None) /hpf Hyaline Casts (0-2) /lpf Urine Mucus (None) /hpf Microbiology - Last 24 Hours (Table) 01/13/22 20:25 Blood Culture - Preliminary Blood No Growth after 48 hours 01/13/22 20:08 Blood Culture - Preliminary Blood No Growth after 48 hours Assessment and Plan Assessment: Impression: Acute on chronic hypoxic respiratory failure multifactorial. 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 Recommendation: Continue Lasix at 40 mg IV push every 12 hours Cut down her IV fluid Continue antibiotics empirically Continue BiPAP as needed Ultrasound of the chest was ordered and reviewed, not much fluid to drain/no need for thoracentesis We will continue to follow. Time with Patient: Less than 30
[2022-01-16 16:55] LABS: Glucose,Whole Blood 176 mg/dL (75-99)
--- NOTE | 2022-01-16 18:39 | XR ---
EXAMINATION TYPE: XR chest 2V DATE OF EXAM: 01/16/2022 COMPARISON: 01/13/2022 HISTORY: Short of breath TECHNIQUE: 2 views FINDINGS: Heart is enlarged. There is coarse interstitial density in the lungs. There is slight blunt ing of the costophrenic angles. Bony thorax is intact. IMPRESSION: Cardiomegaly and pulmonary interstitial edema is suggestive of congestive heart failure a nd not changed compared to 01/13/2022. Small pleural effusions.
[2022-01-16] MEDS: MONTELUKAST 10 MG TAB PO SCH (20:09)
[2022-01-16] MEDS: SERTRALINE 100 MG TAB PO SCH (20:10)
[2022-01-16] MEDS: PRAVASTATIN SODIUM 40 MG TAB PO SCH (20:14)
[2022-01-16] MEDS ORDERED: LEVOFLOXACIN 500 MG TAB PO SCH (21:00)
--- NOTE | 2022-01-16 23:05 | P.PN ---
Subjective Progress Note Date: 01/16/22 This is a pleasant 71 years old female with past medical history of COPD, Diabetes Mellitus, Hypertension, ARDS secondary to pneumonia more than 10 years ago requiring tracheostomy tube insertion, COPD with established FEV1 of 41% of predicted, She presents because of worsening dyspnea especially over the last 2 days associated with some coughing especially in the morning but no chest pain. Associated with. Mild pitting edema noted to bilateral lower extremities. At home she uses 6 L per minute of oxygen and her currently she is on 12 units. She denies headache or weakness or numbness. No vomiting or diarrhea or abdominal pain. No urinary complaint. No fever. She denies smoking, alcohol or illicit drugs Patient is hypoxic and requiring 12 L of oxygen via nasal cannula to achieve saturation low 90s. Patient is afebrile. Leukocytosis of 20.4. Hemoglobin Is 10.4. INR Is 1.1. Creatinine 1.4 compared to baseline of 1.8-2.2 Chest x-ray: Chest x-ray reviewed by myself showing interval worsening of scattered airspace opacity projecting over the heart, correlate for pneumonia. Which is worse than chest x-ray done about 2 weeks ago, CHF is not excluded EKG: Sinus rhythm with sinus arrhythmia at [address] T changes In the emergency room patient received Lasix and breathing treatment 01/15/2022 Patient state in bed most of the time, fully awake, she is on 10 L oxygen via nasal cannula she has some chest pain this morning looks like pleuritic related to her pneumonia. Troponin were negative. She denies any other complaints. She is hemodynamically stable however. She has evidence of decreased blood cells with WBCs came back to normal today at 8.4, platelets 61, hemoglobin 8.1. This could be related to her sepsis. However she is also on subcu heparin but start this morning so selectively is the culprit for her thrombocytopenia however of her platelets below 50,000 then discontinue subcu heparin Her creatinine went up 1.4 to 2.5 daily. 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 there is no nephrotoxic agents. We will lower her Norvasc 10 mg down to 5 mg and also Lasix 40 mg twice a day into once daily. Also will give one-time dose of midodrine tonight 1 dose. she has a French catheter. We will send urine analysis. Treatment of her creatinine. She remains on cefepime, Levaquin and IV Lasix as above 01/16/2022 She continues on cefepime and lasix 40 mg daily, currently denies chest pain or shortness of breath. She continues on 10 LPM O2 and BIPAP at night. She notes she was never able to use the BIPAP at home after her last admission. Her BP is stable today, continues on Norvasc at 5 mg. Plt stable at 63k. Cr up to 2.5 from 1.8 yesterday. Objective - Vital Signs Vital signs: Vital Signs Temp 97.8 F 01/16/22 20:06 Pulse 83 01/16/22 20:35 Resp 18 01/16/22 20:06 BP 110/60 01/16/22 20:06 Pulse Ox 99 01/16/22 20:06 Intake & Output 01/16/22 01/16/22 01/17/22 06:59 18:59 06:59 Intake Total 50 550 Output Total 400 275 Balance -350 275 Intake: Intake, IV Titration 50 Amount Cefepime 1 gm In Sodium 50 Chloride 0.9% 50 ml @ 12. 5 mls/hr IVPB Q12HR [facility] Rx#:[id number] Oral 550 Output: Urine 400 275 Other: Voiding Method Indwelling Catheter Indwelling Catheter Indwelling Catheter - Exam General: well nourished, well developed, NAD. Vitals reviewed Lungs: on BIPAP. No rales or wheezing. Decreased breath sounds CV: Regular rate and rhythm, no murmur. Peripheral pulses 2+ Abdomen: soft, nondistended, no organomegaly Skin: warm and dry. - Labs CBC & Chem 7: 01/16/22 07:48 01/16/22 07:48 Labs: Abnormal Lab Results - Last 24 Hours (Table) 01/16/22 01/16/22 01/16/22 Range/Units 07:48 07:48 08:11 RBC 3.29 L (4.10-5.20) X 10*6/uL Hgb 7.9 L (12.0-15.0) g/dL Hct 28.3 L (37.2-46.3) % MCH 24.0 L (27.0-32.0) pg MCHC 27.9 L (32.0-37.0) g/dL RDW 17.9 H (11.5-14.5) % Plt Count 64 L (140-440) X 10*3/uL MPV 12.6 H (9.5-12.2) fL Lymphocytes # 0.30 L (0.90-5.00) X 10*3/uL Monocytes # 0.19 L (0.20-1.00) X 10*3/uL Carbon Dioxide 29.3 H (20.0-27.5) mmol/L BUN 66.1 H (9.0-27.0) mg/dL Creatinine 2.6 H (0.6-1.5) mg/dL Est GFR (CKD-EPI)AfAm 20.7 L (60.0-200.0) Est GFR (CKD-EPI)NonAf 17.8 L (60.0-200.0) BUN/Creatinine Ratio 25.42 H (12.00-20.00) Ratio Glucose 133 H (70-110) mg/dL POC Glucose (mg/dL) 157 H (75-99) mg/dL Calcium 8.5 L (8.7-10.3) mg/dL Conjugated Bilirubin <0.20 L (0.20-0.40) mg/dL AST 9 L (13-35) U/L Total Protein 5.0 L (6.2-8.2) g/dL Albumin 3.3 L (3.8-4.9) g/dL 01/16/22 01/16/22 Range/Units 11:19 16:53 RBC (4.10-5.20) X 10*6/uL Hgb (12.0-15.0) g/dL Hct (37.2-46.3) % MCH (27.0-32.0) pg MCHC (32.0-37.0) g/dL RDW (11.5-14.5) % Plt Count (140-440) X 10*3/uL MPV (9.5-12.2) fL Lymphocytes # (0.90-5.00) X 10*3/uL Monocytes # (0.20-1.00) X 10*3/uL Carbon Dioxide (20.0-27.5) mmol/L BUN (9.0-27.0) mg/dL Creatinine (0.6-1.5) mg/dL Est GFR (CKD-EPI)AfAm (60.0-200.0) Est GFR (CKD-EPI)NonAf (60.0-200.0) BUN/Creatinine Ratio (12.00-20.00) Ratio Glucose (70-110) mg/dL POC Glucose (mg/dL) 228 H 176 H (75-99) mg/dL Calcium (8.7-10.3) mg/dL Conjugated Bilirubin (0.20-0.40) mg/dL AST (13-35) U/L Total Protein (6.2-8.2) g/dL Albumin (3.8-4.9) g/dL Microbiology - Last 24 Hours (Table) 01/13/22 20:08 Blood Culture - Preliminary Blood No Growth after 72 hours 01/13/22 20:25 Blood Culture - Preliminary Blood No Growth after 48 hours Assessment and Plan Plan: Continue with cefepime, lasix, duonebs, pulmicort. Cardiology and Pulmonology following. Continue Norvasc 5 mg daily. stop levaquin. Continue with heparin bid and closely follow platelets.
[2022-01-17] MEDS: LEVOTHYROXINE 88 MCG TAB PO SCH (05:44)
[2022-01-17 07:01] LABS: Glucose,Whole Blood 218 mg/dL (75-99)
[2022-01-17] MEDS: carvediloL 12.5 MG TAB PO SCH ×2 (07:49→16:59)
[2022-01-17] MEDS: TAMSULOSIN 0.4 MG CAP.ER.24H PO SCH (07:50)
[2022-01-17] MEDS: INSULIN ASPART (NovoLOG) 100 UNIT/ML VIAL SQ SCH ×3 (07:50→17:00)
[2022-01-17] MEDS: CEFEPIME 1 GM in SODIUM CHLORIDE 0.9% 50 ML IVPB SCH ×2 (07:51→20:25)
[2022-01-17] MEDS: busPIRone HCl 5 MG TAB PO SCH ×3 (07:51→20:27)
[2022-01-17] MEDS: ISOSORBIDE MONONITRATE ER 30 MG TAB.ER.24H PO SCH (07:51)
[2022-01-17] MEDS: amLODIPine 5 MG TAB PO SCH (07:51)
[2022-01-17] MEDS: HEPARIN SODIUM,PORCINE/PF 5,000 UNIT/0.5 ML SYRINGE SQ SCH ×2 (07:51→20:27)
[2022-01-17] MEDS: FAMOTIDINE 20 MG/2 ML VIAL IV SCH (07:52)
--- NOTE | 2022-01-17 08:36 | XR ---
EXAMINATION TYPE: XR chest 1V portable DATE OF EXAM: 01/17/2022 Comparison: 01/16/2022 Clinical History: 71-year-old female shortness of breath Findings: Heart mildly enlarged. Hyperinflation. Interstitial density. Patchy bibasilar and retrocardiac opacit y. Impression: Stable exam with cardiomegaly, interstitial changes, and patchy bibasilar opacities. Consider CHF wit h pulmonary vascular congestion superimposed on COPD. Persistent dense retrocardiac opacification.
[2022-01-17 08:52] LABS: African American GFR (CKD) 19 (>60 ml/min/1.73 sqM); Anion Gap 10 mmol/L; Blood Urea Nitrogen 74 mg/dL (7-17); Calcium 7.5 mg/dL (8.4-10.2); Carbon Dioxide 28 mmol/L (22-30); Chloride 99 mmol/L (98-107); Glucose 191 mg/dL (74-99); Non-African American GFR(CKD) 17 (>60 ml/min/1.73 sqM); Potassium 4.1 mmol/L (3.5-5.1); Sodium 137 mmol/L (137-145)
[2022-01-17] MEDS ORDERED: FUROSEMIDE 10 MG/ML 4 ML VIAL IV SCH (09:00)
[2022-01-17] MEDS: IPRATROPIUM-ALBUTEROL 3 ML NEB INHALATION SCH ×4 (09:24→21:20)
[2022-01-17] MEDS: SYMBICORT 80-4.5 MCG INHALER INHALATION SCH ×2 (09:24→21:20)
[2022-01-17 11:49] LABS: Glucose,Whole Blood 120 mg/dL (75-99)
--- NOTE | 2022-01-17 13:20 | P.PN ---
Subjective Progress Note Date: 01/17/22 HISTORY OF PRESENT ILLNESS: This is a 71-year-old female who was recently treated for pneumonia/CHF and hypoxic respiratory failure. She has history of coronary arteries pneumonia for which she was treated in September. Patient was sent home on multiple medication including prednisone. Patient is brought back to the hospital with complaints of shortness of breath and the hypoxia. Chest x-ray showed bilateral pulmonary infiltrates, mostly in the basal area suggestive of possible pneumonia though CHF cannot be excluded. Her BNP is elevated. Her white count is 20,000. Patient is currently being treated with IV Lasix and also antibiotics. Patient seemed to be in mild to moderate distress, but doesn't appear to be in acute respiratory failure. Her sodium is 137, potassium is 4.6, bicarb is 38. Echocardiogram done on previous occasion showed normal LV function. She also obese and has severe underlying COPD. Continue current medical therapy. Further recommend depend upon the clinical course and response to the treatment. 01/16/2022 Patient examined this morning. She is sitting up in the chair. She remains on Bipap. She denies chest pain or pressure. She denies feeling short of breath. She reports she is thirsty this morning. She remains on IV lasix 40 mg daily. Fluid balance over the last 24 hours is -1150 mL. Labs from this morning are currently pending. 01/17/2022 Patients creatinine yesterday 2.6. Patient only had 275 mL of urine out yesterday morning after her Lasix. Her Lasix was discontinued and IV fluids wer e ordered at 80 mL an hour. However, patient was then seen by pulmonary and restarted on IV lasix. Chest x-ray this morning reveals stable exam with cardiomegaly, interstitial changes, and patchy bibasilar opacities. Consider CHF with pulmonary vascular congestion superimposed on COPD. Persistent dense retrocardiac opacification. Patient's creatinine today 2.77. Fluid balance over the last 24 hours is -525 mL. PHYSICAL EXAM: VITAL SIGNS: Reviewed. GENERAL: Well-developed in no acute distress. NECK: Supple. No JVD or thyromegaly LUNGS: Respirations even and unlabored. Lungs diminished to auscultation bilaterally. HEART: Regular rate and rhythm. S1 and S2 heard. EXTREMITIES: Normal range of motion. No clubbing or cyanosis. Peripheral pulses intact. 1+ bilateral lower extremity edema ASSESSMENT: Acute on chronic heart failure with preserved ejection fraction Acute kidney injury Pneumonia Acute hypoxic respiratory failure COPD Hypertension Diabetes PLAN: Continue current cardiac medications Patient was restarted on IV lasix per pulmonary and her IVF were discontinued. Kidney function worsening. Continue to monitor. Daily weights Accurate I&O Further recommendations per patient's course Nurse practitioner note has been reviewed by physician. Signing provider agrees with the documented findings, assessment, and plan of care. Objective - Vital Signs Vital signs: Vital Signs Temp 97.8 F 01/17/22 09:27 Pulse 84 01/17/22 11:21 Resp 18 01/17/22 09:29 BP 118/71 01/17/22 09:27 Pulse Ox 89 L 01/17/22 09:27 Intake & Output 01/16/22 01/17/22 01/17/22 18:59 06:59 18:59 Intake Total 550 Output Total 275 800 Balance 275 -800 Intake: Oral 550 Output: Urine 275 800 Other: Voiding Method Indwelling Catheter Indwelling Catheter Indwelling Catheter - Labs CBC & Chem 7: 01/16/22 07:48 01/17/22 07:53 Labs: Abnormal Lab Results - Last 24 Hours (Table) 01/16/22 01/17/22 01/17/22 Range/Units 16:53 06:59 07:53 BUN 74 H (7-17) mg/dL Creatinine 2.77 H (0.52-1.04) mg/dL Glucose 191 H (74-99) mg/dL POC Glucose (mg/dL) 176 H 218 H (75-99) mg/dL Calcium 7.5 L (8.4-10.2) mg/dL Microbiology - Last 24 Hours (Table) 01/13/22 20:25 Blood Culture - Preliminary Blood No Growth after 72 hours 01/13/22 20:08 Blood Culture - Preliminary Blood No Growth after 72 hours
--- NOTE | 2022-01-17 14:22 | P.PN ---
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 And post COVID-19 inflammatory changes in the lungs On today's evaluation of 01/15/2022, the patient is stable. The patient is currently on 8 L of O2 by nasal cannula. Slightly less short of breath compared to yesterday. The patient was given IV Lasix yesterday and the patient has developed some interval worsening in the creatinine which is up to 2.5. Natasha milton, the overall fluid balance has been -1.1 L over the past 24 hours. On today's blood work, the BUN is at 56 with a creatinine of 2.5. His serum bicarbonate 29 with a potassium level of 4.6. The pro calcitonin level is at 4.08. The patient is contemplated to O2 by nasal cannula. The patient is on a combination of cefepime and Levaquin. Cultures still pending for now. Meanwhile, the patient was receiving Lasix 40 mg IV every 12 hours and I'm going to reduce the dose with close monitoring of the renal function to prevent any acute kidney injury on this patient. She is resting comfortably in bed. Reevaluated today on 01/16/22, patient is now on 10 L high flow cannula, O2 saturation is marginal. Found out today that her Lasix had been placed on hold. Patient is developing worsening renal picture, however her chest x-ray seems to be worsening with worsening interstitial edema and post inflammatory changes in the lungs related to previous history of COVID-[address] the patient back on diuretics, and I will cut down her IV fluid, we'll recommend an ultrasound of the chest to determine if she needs left-sided thoracentesis. However ultrasound did not show much fluid on the left lung, hence no need for thoracentesis. On 01/17/2022 patient seen in follow-up on medical surgical floor. She sits up in the recliner, appears to be in no acute distress. She was wearing a BiPAP support with FiO2 of 75% overnight, she was on 3 L of oxygen her pulse ox was 89%. Her FiO2 flow was increased to 6 L. She does not appear to be in any acute distress, no fever overnight. Gen. she appears weak. She has exertional dyspnea, but no chest discomfort, no increased cough or phlegm production. She remains on empiric antibiotics in the form of cefepime. Cultures have been negative, she's been afebrile since admission. Her white count was improving since admission, her last CBC showed normal white count of 5.6, hemoglobin was 7.9, platelet count was 64, yesterday's labs also showed worsening renal function and creatinine was up to 2.6, today's creatinine is 2.77, B1 is 74, electrolytes are within normal limits. Initially patient's diuretics have been stopped however patient does have a chronic diastolic CHF, and chronic kidney disease. She was placed back on Lasix 40 mg every 12 hours which was later decreased to 40 mg once daily, ultrasound of the chest did not pleural fluid pocket that was possible to drain, right pleural effusion pocket was not marked in the left pleural effusion pocket was only 1.7 cm. Patient did have 2 pro calcitonin values that were elevated at 3.87, and 4.08 initially on 01/14/2022, and 01/15/2022. She had been on cefepime. Objective - Vital Signs Vital signs: Vital Signs Temp 97.8 F 01/17/22 09:27 Pulse 84 01/17/22 11:21 Resp 18 01/17/22 09:29 BP 118/71 01/17/22 09:27 Pulse Ox 89 L 01/17/22 09:27 Intake & Output 01/16/22 01/17/22 01/17/22 18:59 06:59 18:59 Intake Total 550 Output Total 275 800 Balance 275 -800 Intake: Oral 550 Output: Urine 275 800 Other: Voiding Method Indwelling Catheter Indwelling Catheter Indwelling Catheter - Exam GENERAL EXAM: Alert, very pleasant, 71-year-old white female, sitting up in a recliner, currently on 6 L of oxygen comfortable in no apparent distress. HEAD: Normocephalic/atraumatic. EYES: Normal reaction of pupils, equal size. Conjunctiva pink, sclera white. NOSE: Clear with pink turbinates. THROAT: No erythema or exudates. NECK: No masses, no JVD, no thyroid enlargement, no adenopathy. CHEST: No chest wall deformity. Symmetrical expansion. LUNGS: Equal air entry with bibasilar crackles CVS: Regular rate and rhythm, normal S1 and S2, no gallops, no murmurs, no rubs ABDOMEN: Soft, nontender. No hepatosplenomegaly, normal bowel sounds, no guarding or rigidity. EXTREMITIES: No clubbing, no edema no cyanosis, 2+ pulses and upper and lower extremities. MUSCULOSKELETAL: Muscle strength and tone normal. SPINE: No scoliosis or deformity SKIN: No rashes CENTRAL NERVOUS SYSTEM: Alert and oriented -3. No focal deficits, tone is normal in all 4 extremities. PSYCHIATRIC: Alert and oriented -3. Appropriate affect. Intact judgment and insight. - Labs CBC & Chem 7: 01/16/22 07:48 01/17/22 07:53 Labs: Abnormal Lab Results - Last 24 Hours (Table) 01/16/22 01/17/22 01/17/22 Range/Units 16:53 06:59 07:53 BUN 74 H (7-17) mg/dL Creatinine 2.77 H (0.52-1.04) mg/dL Glucose 191 H (74-99) mg/dL POC Glucose (mg/dL) 176 H 218 H (75-99) mg/dL Calcium 7.5 L (8.4-10.2) mg/dL 01/17/22 Range/Units 11:45 BUN (7-17) mg/dL Creatinine (0.52-1.04) mg/dL Glucose (74-99) mg/dL POC Glucose (mg/dL) 120 H (75-99) mg/dL Calcium (8.4-10.2) mg/dL Microbiology - Last 24 Hours (Table) 01/13/22 20:25 Blood Culture - Preliminary Blood No Growth after 72 hours 01/13/22 20:08 Blood Culture - Preliminary Blood No Growth after 72 hours Assessment and Plan Plan: Assessment: #1. 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 Patient has recent h istory of urinary tract infection related to Enterococcus faecalis and patient had completed a course of daptomycin #2. Acute on chronic kidney injury #3. Chronic hypoxic respiratory failure related to post COVID syndrome since September 2021 patient had been on oxygen at 6 L/m #4. Prior history of acute respiratory distress syndrome requiring prolonged intubation and mechanical ventilation and eventual tracheostomy tube insertion and subsequent decannulation #5. History of severe COPD with baseline FEV1 of 41% of predicted #6. History of hypothyroidism #7. Diabetes mellitus type 2 #8. History of hypertension #9. Chronic kidney disease stage IIIB #10. Moderately severe pulmonary hypertension #11. Morbid obesity with BMI of 38.4 kg/m #12. Recent hospitalization for acute on chronic CHF with diastolic dysfunction, urinary tract infection related to Enterococcus faecalis Plan: Continue the antibiotics We will place the diuretics on hold Consult nephrology Wean FiO2 to keep O2 sats at or above 90% BiPAP support at bedtime and as needed during the day Ultrasound of the chest has been reviewed showing no significant pleural fluid to drain Continue medical management Nephrology recommendations We'll continue to follow I have personally seen and examined the patient, performed the documentation and the assessment and plan as written. Number of minutes spent on the visit: 10 Time with Patient: Less than 30
[2022-01-17 16:56] LABS: Glucose,Whole Blood 139 mg/dL (75-99)
--- NOTE | 2022-01-17 18:11 | ECHOF ---
Referral Reason:CHF MEASUREMENTS -------- HEIGHT: 157.5 cm WEIGHT: 95.3 kg BP: IVSd: 1.5 cm (0.6 - 1.1) LVIDd: 3.8 cm (3.9 - 5.3) LVPWd: 1.4 cm (0.6 - 1.1) IVSs: 2.0 cm LVIDs: 2.2 cm LVPWs: 1.4 cm LA Diam: 4.5 cm (2.7 - 3.8) RAP: 5.00 mmHg RVSP: 52.30 mmHg FINDINGS -------- Sinus rhythm. This was a technically adequate study. The left ventricular size is normal. There is moderate concentric left ventricular hypertrophy. O verall left ventricular systolic function is normal with, an EF between 55 - 60 %. The right ventricle is normal in size. The left atrium is moderately dilated. The right atrial size is normal. Interatrial and interventricular septum intact. There is no evidence of aortic regurgitation. There is no evidence of aortic stenosis. Mild mitral annular calcification present. There is trace mitral regurgitation. Moderate to severe tricuspid regurgitation present. There is moderate to severe pulmonary hypertens ion. The right ventricular systolic pressure, as measured by Doppler, is 52.30mmHg. There is no pulmonic regurgitation present. The aortic root size is normal. IVC Not well visulized. There is no pericardial effusion. CONCLUSIONS -------- 1. The left ventricular size is normal. 2. There is moderate concentric left ventricular hypertrophy. 3. Overall left ventricular systolic function is normal with, an EF between 55 - 60 %. 4. The left atrium is moderately dilated. 5. Mild mitral annular calcification present. 6. Moderate to severe tricuspid regurgitation present. 7. There is moderate to severe pulmonary hypertension. 8. The right ventricular systolic pressure, as measured by Doppler, is 52.30mmHg. CLINICAL PRODUCT MANAGER: Marian Naqvi RDCS
[2022-01-17 20:07] LABS: Glucose,Whole Blood 79 mg/dL (75-99)
[2022-01-17] MEDS: SERTRALINE 100 MG TAB PO SCH (20:27)
[2022-01-17] MEDS: PRAVASTATIN SODIUM 40 MG TAB PO SCH (20:27)
[2022-01-17] MEDS: MONTELUKAST 10 MG TAB PO SCH (20:27)
[2022-01-17] MEDS: ALPRAZolam 0.5 MG TAB PO PRN (21:16)
--- NOTE | 2022-01-17 22:24 | P.PN ---
Subjective Progress Note Date: 01/17/22 This is a pleasant 71 years old female with past medical history of COPD, Diabetes Mellitus, Hypertension, ARDS secondary to pneumonia more than 10 years ago requiring tracheostomy tube insertion, COPD with established FEV1 of 41% of predicted, She presents because of worsening dyspnea especially over the last 2 days associated with some coughing especially in the morning but no chest pain. Associated with. Mild pitting edema noted to bilateral lower extremities. At home she uses 6 L per minute of oxygen and her currently she is on 12 units. She denies headache or weakness or numbness. No vomiting or diarrhea or abdominal pain. No urinary complaint. No fever. She denies smoking, alcohol or illicit drugs Patient is hypoxic and requiring 12 L of oxygen via nasal cannula to achieve saturation low 90s. Patient is afebrile. Leukocytosis of 20.4. Hemoglobin Is 10.4. INR Is 1.1. Creatinine 1.4 compared to baseline of 1.8-2.2 Chest x-ray: Chest x-ray reviewed by myself showing interval worsening of scattered airspace opacity projecting over the heart, correlate for pneumonia. Which is worse than chest x-ray done about 2 weeks ago, CHF is not excluded EKG: Sinus rhythm with sinus arrhythmia at [address] T changes In the emergency room patient received Lasix and breathing treatment 01/15/2022 Patient state in bed most of the time, fully awake, she is on 10 L oxygen via nasal cannula she has some chest pain this morning looks like pleuritic related to her pneumonia. Troponin were negative. She denies any other complaints. She is hemodynamically stable however. She has evidence of decreased blood cells with WBCs came back to normal today at 8.4, platelets 61, hemoglobin 8.1. This could be related to her sepsis. However she is also on subcu heparin but start this morning so selectively is the culprit for her thrombocytopenia however of her platelets below 50,000 then discontinue subcu heparin Her creatinine went up 1.4 to 2.5 daily. 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 there is no nephrotoxic agents. We will lower her Norvasc 10 mg down to 5 mg and also Lasix 40 mg twice a day into once daily. Also will give one-time dose of midodrine tonight 1 dose. she has a French catheter. We will send urine analysis. Treatment of her creatinine. She remains on cefepime, Levaquin and IV Lasix as above 01/16/2022 She continues on cefepime and lasix 40 mg daily, currently denies chest pain or shortness of breath. She continues on 10 LPM O2 and BIPAP at night. She notes she was never able to use the BIPAP at home after her last admission. Her BP is stable today, continues on Norvasc at 5 mg. Plt stable at 63k. Cr up to 2.5 from 1.8 yesterday. 01/17/2022 She remains on empiric cefepime, lasix, she continues on 10 LPM O2 and BIPAP at night. Her renal function continues to rise and up to 2.77 today. She currently denies chest pain, shortness of breath. Objective - Vital Signs Vital signs: Vital Signs Temp 97.5 F L 01/17/22 19:11 Pulse 82 01/17/22 21:21 Resp 18 01/17/22 19:11 BP 116/52 01/17/22 19:11 Pulse Ox 99 01/17/22 21:21 Intake & Output 01/17/22 01/17/22 01/18/22 06:59 18:59 06:59 Intake Total 180 Output Total 800 Balance -800 180 Intake: Oral 180 Output: Urine 800 Other: Voiding Method Indwelling Catheter Indwelling Catheter - Exam General: well nourished, well developed, NAD. Vitals reviewed Lungs: on BIPAP. No rales or wheezing. Decreased breath sounds CV: Regular rate and rhythm, no murmur. Peripheral pulses 2+ Abdomen: soft, nondistended, no organomegaly Skin: warm and dry. - Labs CBC & Chem 7: 01/16/22 07:48 01/17/22 07:53 Labs: Abnormal Lab Results - Last 24 Hours (Table) 01/17/22 01/17/22 01/17/22 Range/Units 06:59 07:53 11:45 BUN 74 H (7-17) mg/dL Creatinine 2.77 H (0.52-1.04) mg/dL Glucose 191 H (74-99) mg/dL POC Glucose (mg/dL) 218 H 120 H (75-99) mg/dL Calcium 7.5 L (8.4-10.2) mg/dL 01/17/22 Range/Units 16:45 BUN (7-17) mg/dL Creatinine (0.52-1.04) mg/dL Glucose (74-99) mg/dL POC Glucose (mg/dL) 139 H (75-99) mg/dL Calcium (8.4-10.2) mg/dL Microbiology - Last 24 Hours (Table) 01/13/22 20:25 Blood Culture - Preliminary Blood No Growth after 72 hours 01/13/22 20:08 Blood Culture - Preliminary Blood No Growth after 72 hours Assessment and Plan Plan: Continue with cefepime, duonebs, pulmicort. Cardiology and Pulmonology following. Continue Norvasc 5 mg daily. Consult to nephrology. Hold lasix
[2022-01-18 06:24] LABS: African American GFR (CKD) 18 (>60 ml/min/1.73 sqM); Anion Gap 6 mmol/L; Blood Urea Nitrogen 74 mg/dL (7-17); Calcium 7.8 mg/dL (8.4-10.2); Carbon Dioxide 32 mmol/L (22-30); Chloride 100 mmol/L (98-107); Glucose 132 mg/dL (74-99); Magnesium 1.6 mg/dL (1.6-2.3); Non-African American GFR(CKD) 16 (>60 ml/min/1.73 sqM); Potassium 4.1 mmol/L (3.5-5.1); Sodium 138 mmol/L (137-145)
[2022-01-18 07:10] LABS: Glucose,Whole Blood 122 mg/dL (75-99)
[2022-01-18] MEDS: SYMBICORT 80-4.5 MCG INHALER INHALATION SCH ×2 (07:16→21:05)
[2022-01-18] MEDS: IPRATROPIUM-ALBUTEROL 3 ML NEB INHALATION SCH ×4 (07:17→21:05)
[2022-01-18] MEDS: busPIRone HCl 5 MG TAB PO SCH ×2 (08:08→17:17)
[2022-01-18] MEDS: amLODIPine 5 MG TAB PO SCH (08:08)
[2022-01-18] MEDS: TAMSULOSIN 0.4 MG CAP.ER.24H PO SCH (08:08)
[2022-01-18] MEDS: ISOSORBIDE MONONITRATE ER 30 MG TAB.ER.24H PO SCH (08:09)
[2022-01-18] MEDS: carvediloL 12.5 MG TAB PO SCH ×2 (08:09→17:17)
[2022-01-18] MEDS: INSULIN ASPART (NovoLOG) 100 UNIT/ML VIAL SQ SCH ×3 (08:10→17:18)
[2022-01-18] MEDS: LEVOTHYROXINE 88 MCG TAB PO SCH (08:11)
[2022-01-18] MEDS: HEPARIN SODIUM,PORCINE/PF 5,000 UNIT/0.5 ML SYRINGE SQ SCH ×2 (08:12→20:41)
[2022-01-18] MEDS: CEFEPIME 1 GM in SODIUM CHLORIDE 0.9% 50 ML IVPB SCH ×2 (08:12→20:41)
[2022-01-18] MEDS ORDERED: FAMOTIDINE 20 MG/2 ML VIAL IV SCH (09:00)
--- NOTE | 2022-01-18 10:34 | P.NPCON ---
History of Present Illness - Reason for Consult acute renal failure, chronic renal failure - History of Present Illness Reason for consultation: Acute kidney injury on chronic kidney disease History of present illness: Patient is a 71-year-old female seen in renal consultation for acute kidney injury and chronic kidney disease. Patient has chronic kidney disease stage IIIB. Baseline creatinine in the range of 1.5-2 secondary to diabetic kidney disease. Patient's creatinine on admission was 1.44 and the last few days renal function has been gradually worsening. Creatinine is up to 2.87 today. Patient has been receiving IV Lasix which was stopped yesterday. Patient has a history of diastolic CHF with moderate to severe pulmonary hypertension and moderate to severe tricuspid regurgitation. She is currently on 7 L oxygen but states she wears oxygen even outpatient. Blood pressure has been fairly stable this admission. She currently has a French catheter and is nonoliguric. No vomiting or diarrhea. Oral intake is fair. 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 She is currently on antibiotics for possible pneumonia as well. Patient has long-standing history of diabetes. She denies use of nonsteroidals. Denies fever or chills. Vital signs are stable. General: Awake and alert. No acute distress. HEENT: Head exam is unremarkable. On nasal cannula. LUNGS: Breath sounds decreased. HEART: Rate and Rhythm are regular. ABDOMEN: Soft, obese. EXTREMITITES: No edema. Past Medical History Past Medical History: COPD, Diabetes Mellitus, Hypertension Additional Past Medical History / Comment(s): ARDS secondary to pneumonia more than 10 years ago requiring tracheostomy tube insertion, COPD with established FEV1 of 41% of predicted, diabetes mellitus, hypertension, history of morbid obesity History of Any Multi-Drug Resistant Organisms: None Reported Past Surgical History: Cholecystectomy, Hysterectomy Past Anesthesia/Blood Transfusion Reactions: No Reported Reaction Past Psychological History: Anxiety Smoking Status: Former smoker Past Alcohol Use History: None Reported Past Drug Use History: None Reported - Past Family History Mother Family Medical History: Congestive Heart Failure (CHF), Diabetes Mellitus Additional Family Medical History / Comment(s): The patient's mother had congestion heart failure and diabetes mellitus in the father had Parkinson's disease. Medications and Allergies Home Medications Medication Instructions Recorded Confirmed Type Albuterol Sulfate [Proair Hfa] 1 - 2 puff INHALATION RT-Q6H PRN 05/22/19 01/13/22 History Levothyroxine Sodium [Synthroid] 88 mcg PO DAILY 05/22/19 01/13/22 History Montelukast [Singulair] 10 mg PO HS 05/22/19 01/13/22 History Pravastatin Sodium [Pravachol] 40 mg PO HS 05/22/19 01/13/22 History Thyroid,Pork [Varnish Filterer Thyroid] 30 mg PO DAILY 05/22/19 01/13/22 History amLODIPine [Norvasc] 10 mg PO DAILY 05/22/19 01/13/22 History Budesonide [Pulmicort] 0.5 mg INHALATION RT-BID 12/16/21 01/13/22 History Ergocalciferol (Vitamin D2) 1,250 mcg PO CALIXTO 12/16/21 01/13/22 History [Drisdol (50,000 Iu)] Iron 18 mg PO BID 12/16/21 01/13/22 History busPIRone HCl [Buspar] 5 mg PO TID 12/16/21 01/13/22 History Budesonide/Formoterol Fumarate 2 puff INHALATION RT-BID 12/17/21 01/13/22 History [Symbicort 80-4.5 Mcg Inhaler] ALPRAZolam [Xanax] 0.5 mg PO HS PRN #3 tab 01/02/22 01/13/22 Rx INSULIN ASPART (NovoLOG) [NovoLOG 10 unit SQ AC-TID #10 ml 01/02/22 01/13/22 Rx (formulary)] Insulin Glargine [Lantus Vial] 20 unit SQ HS #10 ml 01/02/22 01/13/22 Rx Ipratropium-Albuterol Nebulize 3 ml INHALATION RT-Q4H PRN #0 01/02/22 01/13/22 Rx [Duoneb 0.5 mg-3 mg/3 ml Soln] Ipratropium-Albuterol Nebulize 3 ml INHALATION RT-QID ml 01/02/22 01/13/22 Rx [Duoneb 0.5 mg-3 mg/3 ml Soln] Isosorbide Mononitrate ER [Imdur] 30 mg PO DAILY #30 tablet 01/02/22 01/13/22 Rx Sertraline [Zoloft] 100 mg PO HS #0 01/02/22 01/13/22 Rx Tamsulosin [Flomax] 0.4 mg PO PC-BRKFST #30 01/02/22 01/13/22 Rx Torsemide [Demadex] 20 mg PO DAILY #30 tab 01/02/22 01/13/22 Rx hydrALAZINE HCL 100 mg PO Q8H #0 01/02/22 01/13/22 Rx Carvedilol [Coreg] 25 mg PO BID-W/MEALS 01/13/22 01/13/22 History predniSONE See Taper PO DIRECTED 01/13/22 01/13/22 History Allergies Allergy/AdvReac Type Severity Reaction Status Date / Time amoxicillin Allergy Anaphylaxis Verified 01/13/22 21:45 Penicillins Allergy Anaphylaxis Verified 01/13/22 21:45 zolpidem [From Ambien] AdvReac Confusion/A Verified 01/13/22 21:45 MS Physical Exam Vitals: Vital Signs Temp Pulse Pulse Resp BP Pulse Ox 01/18/22 09:45 95 18 01/18/22 07:28 85 01/18/22 07:17 82 01/18/22 07:03 98 F 80 18 141/62 95 01/18/22 03:02 98.1 F 76 123/71 93 L 01/17/22 23:18 99 01/17/22 21:21 82 99 01/17/22 19:11 97.5 F L 80 18 116/52 94 L 01/17/22 14:40 97.4 F L 74 19 132/63 90 L 01/17/22 11:21 84 01/17/22 11:09 84 Intake and Output 01/17/22 01/18/22 01/18/22 22:59 06:59 14:59 Other: Voiding Method Indwelling Catheter Indwelling Catheter # Voids 3 Results - Lab Results Most recent lab results ABG pH 7.40 (7.35-7.45) 01/15/22 21:32 ABG pCO2 55 mmHg (35-45) H 01/15/22 21:32 ABG pO2 52 mmHg (83-108) L* 01/15/22 21:32 ABG HCO3 34 mmol/L (21-25) H 01/15/22 21:32 ABG O2 Saturation 89.5 % (94-97) L 01/15/22 21:32 Calcium 7.8 mg/dL (8.4-10.2) L 01/18/22 05:02 Magnesium 1.6 mg/dL (1.6-2.3) 01/18/22 05:02 01/16/22 07:48 01/18/22 05:02 Assessment and Plan Plan: Assessment: 1. Acute kidney injury secondary to ATN secondary to diuresis. Creatinine 2.8 today. Renal ultrasound from December 2021 showed no evidence of hydronephrosis. 2. Chronic kidney disease stage IIIB secondary to diabetic kidney disease with baseline creatinine in the range of 1.5-2. 3. Chronic diastolic CHF with moderate to severe tricuspid regurgitation and pulmonary hypertension. 4. Acute hypoxic respiratory failure. 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 Questionable pneumonia. 5. History of COPD. 6. Anemia of chronic kidney disease. Rule out iron deficiency. 7. Hypertension with chronic kidney disease. Stable. Plan: Continue to hold diuretics. Check iron studies. Avoid nephrotoxins. Continue to monitor renal function and urine output. Thank you for the consultation. I will continue to follow the patient with you during her hospital stay.
--- NOTE | 2022-01-18 10:59 | P.PN ---
Subjective Progress Note Date: 01/18/22 HISTORY OF PRESENT ILLNESS: This is a 71-year-old female who was recently treated for pneumonia/CHF and hypoxic respiratory failure. She has history of coronary arteries pneumonia for which she was treated in September. Patient was sent home on multiple medication including prednisone. Patient is brought back to the hospital with complaints of shortness of breath and the hypoxia. Chest x-ray showed bilateral pulmonary infiltrates, mostly in the basal area suggestive of possible pneumonia though CHF cannot be excluded. Her BNP is elevated. Her white count is 20,000. Patient is currently being treated with IV Lasix and also antibiotics. Patient seemed to be in mild to moderate distress, but doesn't appear to be in acute respiratory failure. Her sodium is 137, potassium is 4.6, bicarb is 38. Echocardiogram done on previous occasion showed normal LV function. She also obese and has severe underlying COPD. Continue current medical therapy. Further recommend depend upon the clinical course and response to the treatment. 01/16/2022 Patient examined this morning. She is sitting up in the chair. She remains on Bipap. She denies chest pain or pressure. She denies feeling short of breath. She reports she is thirsty this morning. She remains on IV lasix 40 mg daily. Fluid balance over the last 24 hours is -1150 mL. Labs from this morning are currently pending. 01/17/2022 Patients creatinine yesterday 2.6. Patient only had 275 mL of urine out yesterday morning after her Lasix. Her Lasix was discontinued and IV fluids wer e ordered at 80 mL an hour. However, patient was then seen by pulmonary and restarted on IV lasix. Chest x-ray this morning reveals stable exam with cardiomegaly, interstitial changes, and patchy bibasilar opacities. Consider CHF with pulmonary vascular congestion superimposed on COPD. Persistent dense retrocardiac opacification. Patient's creatinine today 2.77. Fluid balance over the last 24 hours is -525 mL. 01/18/2022 Patient examined this morning at the bedside. Patient denies chest pain or pressure. She does report mild SOB this morning. She reports worsening SOB when laying flat. She is on nasal cannula. Her IV lasix remains on hold secondary to her kidney function. Creatinine 2.87. PHYSICAL EXAM: VITAL SIGNS: Reviewed. GENERAL: Well-developed in no acute distress. NECK: Supple. No JVD or thyromegaly LUNGS: Respirations even and unlabored. Lungs diminished to auscultation bilaterally. HEART: Regular rate and rhythm. S1 and S2 heard. EXTREMITIES: Normal range of motion. No clubbing or cyanosis. Peripheral pulses intact. 1+ bilateral lower extremity edema ASSESSMENT: Acute on chronic heart failure with preserved ejection fraction Acute kidney injury Pneumonia Acute hypoxic respiratory failure COPD Hypertension Diabetes PLAN: Continue current cardiac medications Continue to hold diuretics Kidney function worsening. Continue to monitor. Nephrology has been consulted. Daily weights Accurate I&O We will sign off. Please reconsult if needed. If right heart cath is requested, please feel free to contact cardiology service Nurse practitioner note has been reviewed by physician. Signing provider agrees with the documented findings, assessment, and plan of care. Objective - Vital Signs Vital signs: Vital Signs Temp 98 F 01/18/22 07:03 Pulse 95 01/18/22 09:45 Resp 18 01/18/22 09:45 BP 141/62 01/18/22 07:03 Pulse Ox 95 01/18/22 07:03 Intake & Output 01/17/22 01/18/22 01/18/22 18:59 06:59 18:59 Intake Total 180 Balance 180 Intake: Oral 180 Other: Voiding Method Indwelling Catheter Indwelling Catheter Indwelling Catheter # Voids 3 - Labs CBC & Chem 7: 01/16/22 07:48 01/18/22 05:02 Labs: Abnormal Lab Results - Last 24 Hours (Table) 01/17/22 01/17/22 01/18/22 Range/Units 11:45 16:45 05:02 Carbon Dioxide 32 H (22-30) mmol/L BUN 74 H (7-17) mg/dL Creatinine 2.87 H (0.52-1.04) mg/dL Glucose 132 H (74-99) mg/dL POC Glucose (mg/dL) 120 H 139 H (75-99) mg/dL Calcium 7.8 L (8.4-10.2) mg/dL 01/18/22 Range/Units 07:09 Carbon Dioxide (22-30) mmol/L BUN (7-17) mg/dL Creatinine (0.52-1.04) mg/dL Glucose (74-99) mg/dL POC Glucose (mg/dL) 122 H (75-99) mg/dL Calcium (8.4-10.2) mg/dL Microbiology - Last 24 Hours (Table) 01/13/22 20:25 Blood Culture - Preliminary Blood No Growth after 96 hours 01/13/22 20:08 Blood Culture - Preliminary Blood No Growth after 96 hours
[2022-01-18 11:37] LABS: Glucose,Whole Blood 115 mg/dL (75-99)
--- NOTE | 2022-01-18 12:14 | P.PN ---
Subjective Progress Note Date: 01/18/22 Principal diagnosis: Shortness of breath Acute on chronic hypoxic respiratory failure secondary to acute on chronic diastolic congestive heart failure, and history of COVID-19 pneumonia with post COVID-19 syndrome. And post COVID-19 inflammatory changes in the lungs On today's evaluation of 01/15/2022, the patient is stable. The patient is currently on 8 L of O2 by nasal cannula. Slightly less short of breath compared to yesterday. The patient was given IV Lasix yesterday and the patient has developed some interval worsening in the creatinine which is up to 2.5. Natasha milton, the overall fluid balance has been -1.1 L over the past 24 hours. On today's blood work, the BUN is at 56 with a creatinine of 2.5. His serum bicarbonate 29 with a potassium level of 4.6. The pro calcitonin level is at 4.08. The patient is contemplated to O2 by nasal cannula. The patient is on a combination of cefepime and Levaquin. Cultures still pending for now. Meanwhile, the patient was receiving Lasix 40 mg IV every 12 hours and I'm going to reduce the dose with close monitoring of the renal function to prevent any acute kidney injury on this patient. She is resting comfortably in bed. Reevaluated today on 01/16/22, patient is now on 10 L high flow cannula, O2 saturation is marginal. Found out today that her Lasix had been placed on hold. Patient is developing worsening renal picture, however her chest x-ray seems to be worsening with worsening interstitial edema and post inflammatory changes in the lungs related to previous history of COVID-[address] the patient back on diuretics, and I will cut down her IV fluid, we'll recommend an ultrasound of the chest to determine if she needs left-sided thoracentesis. However ultrasound did not show much fluid on the left lung, hence no need for thoracentesis. On 01/17/2022 patient seen in follow-up on medical surgical floor. She sits up in the recliner, appears to be in no acute distress. She was wearing a BiPAP support with FiO2 of 75% overnight, she was on 3 L of oxygen her pulse ox was 89%. Her FiO2 flow was increased to 6 L. She does not appear to be in any acute distress, no fever overnight. Gen. she appears weak. She has exertional dyspnea, but no chest discomfort, no increased cough or phlegm production. She remains on empiric antibiotics in the form of cefepime. Cultures have been negative, she's been afebrile since admission. Her white count was improving since admission, her last CBC showed normal white count of 5.6, hemoglobin was 7.9, platelet count was 64, yesterday's labs also showed worsening renal function and creatinine was up to 2.6, today's creatinine is 2.77, B1 is 74, electrolytes are within normal limits. Initially patient's diuretics have been stopped however patient does have a chronic diastolic CHF, and chronic kidney disease. She was placed back on Lasix 40 mg every 12 hours which was later decreased to 40 mg once daily, ultrasound of the chest did not pleural fluid pocket that was possible to drain, right pleural effusion pocket was not marked in the left pleural effusion pocket was only 1.7 cm. Patient did have 2 pro calcitonin values that were elevated at 3.87, and 4.08 initially on 01/14/2022, and 01/15/2022. She had been on cefepime. On 01/18/2022 patient seen in follow-up on medical surgical floor. She appears to be in no distress, resting in bed, appears fatigued, but no acute distress. She did wear BiPAP support last night, she is currently on 7 L of oxygen and her pulse ox is 90-94%, no fever or chills. Remains off diuretics, her creatinine is up to 2.87 on today's labs. Patient has been on diuretics. Appetite is poor, she denies any nausea vomiting or diarrhea, she's had no fever, no chest discomfort, no cough or phlegm production. Nephrology consultation has been noted. Objective - Vital Signs Vital signs: Vital Signs Temp 98 F 01/18/22 07:03 Pulse 83 01/18/22 11:21 Resp 18 01/18/22 09:45 BP 141/62 01/18/22 07:03 Pulse Ox 95 01/18/22 07:03 Intake & Output 01/17/22 01/18/22 01/18/22 18:59 06:59 18:59 Intake Total 180 Balance 180 Intake: Oral 180 Other: Voiding Method Indwelling Catheter Indwelling Catheter Indwelling Catheter # Voids 3 - Exam GENERAL EXAM: Alert, very pleasant, 71-year-old white female, sitting up in a recliner, currently on 7 L of oxygen with a pulse ox of 94% comfortable in no apparent distress. HEAD: Normocephalic/atraumatic. EYES: Normal reaction of pupils, equal size. Conjunctiva pink, sclera white. NOSE: Clear with pink turbinates. THROAT: No erythema or exudates. NECK: No masses, no JVD, no thyroid enlargement, no adenopathy. CHEST: No chest wall deformity. Symmetrical expansion. LUNGS: Equal air entry with bibasilar crackles CVS: Regular rate and rhythm, normal S1 and S2, no gallops, no murmurs, no rubs ABDOMEN: Soft, nontender. No hepatosplenomegaly, normal bowel sounds, no guarding or rigidity. EXTREMITIES: No clubbing, no edema no cyanosis, 2+ pulses and upper and lower extremities. MUSCULOSKELETAL: Muscle strength and tone normal. SPINE: No scoliosis or deformity SKIN: No rashes CENTRAL NERVOUS SYSTEM: Alert and oriented -3. No focal deficits, tone is normal in all 4 extremities. PSYCHIATRIC: Alert and oriented -3. Appropriate affect. Intact judgment and insight. - Labs CBC & Chem 7: 01/16/22 07:48 01/18/22 05:02 Labs: Abnormal Lab Results - Last 24 Hours (Table) 01/17/22 01/18/22 01/18/22 Range/Units 16:45 05:02 07:09 Carbon Dioxide 32 H (22-30) mmol/L BUN 74 H (7-17) mg/dL Creatinine 2.87 H (0.52-1.04) mg/dL Glucose 132 H (74-99) mg/dL POC Glucose (mg/dL) 139 H 122 H (75-99) mg/dL Calcium 7.8 L (8.4-10.2) mg/dL 01/18/22 Range/Units 11:36 Carbon Dioxide (22-30) mmol/L BUN (7-17) mg/dL Creatinine (0.52-1.04) mg/dL Glucose (74-99) mg/dL POC Glucose (mg/dL) 115 H (75-99) mg/dL Calcium (8.4-10.2) mg/dL Microbiology - Last 24 Hours (Table) 01/13/22 20:25 Blood Culture - Preliminary Blood No Growth after 96 hours 01/13/22 20:08 Blood Culture - Preliminary Blood No Growth after 96 hours Assessment and Plan Plan: Assessment: #1. Acute on chronic hypoxic respiratory failure, multifactorial, related to a cute on chronic diastolic CHF, 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 Patient has recent history of urinary tract infection related to Enterococcus faecalis and patient had completed a course of daptomycin #2. Acute on chronic kidney injury #3. Chronic hypoxic respiratory failure related to post COVID syndrome since September 2021 patient had been on oxygen at 6 L/m #4. Prior history of acute respiratory distress syndrome requiring prolonged intubation and mechanical ventilation and eventual tracheostomy tube insertion and subsequent decannulation #5. History of severe COPD with baseline FEV1 of 41% of predicted #6. History of hypothyroidism #7. Diabetes mellitus type 2 #8. History of hypertension #9. Chronic kidney disease stage IIIB #10. Moderately severe pulmonary hypertension #11. Morbid obesity with BMI of 38.4 kg/m #12. Recent hospitalization for acute on chronic CHF with diastolic dysfunction, urinary tract infection related to Enterococcus faecalis Plan: Continue antibiotics continue breathing treatments BiPAP support at bedtime and as needed during the day Wean FiO2 to keep O2 sats at 89-90 % Diuretics remain on hold Encouraged to exhalation to sit up in a chair, deep breathing and cough Follow-up labs including electrolytes and renal profile tomorrow We'll continue to follow I have personally seen and examined the patient, performed the documentation and the assessment and plan as written. Number of minutes spent on the visit: 10 Time with Patient: Less than 30
[2022-01-18] MEDS: MAGNESIUM SULFATE-D5W PMX 1 GM in DEXTROSE/WATER 1 100ML.BAG IVPB SCH ×2 (13:45→15:13)
[2022-01-18 15:16] LABS: % Iron Saturation 15.79 (12.00-45.00)
[2022-01-18 15:34] LABS: Amorphous Sediment,Urine Rare /hpf; Appearance,Urine Cloudy (Clear); Bacteria,Urine Occasional /hpf; Bilirubin,Urine Negative (Negative); Blood,Urine Trace (Negative); Color,Urine Yellow; Glucose,Urine (UA) Negative (Negative); Ketones,Urine Trace (Negative); Leukocyte Esterase,Urine Moderate (Negative); Mucus,Urine Rare /hpf; Nitrite,Urine Negative (Negative); PH, Urine 5.5 (5.0-8.0); Protein,Urine 2+ (Negative); RBC,Urine 5 /hpf (0-5); Specific Gravity,Urine 1.015 (1.001-1.035); Squamous Epithelial Cell,Urine 1 /hpf (0-4); Urobilinogen,Urine <2.0 mg/dL (<2.0); WBC,Urine 9 /hpf (0-5)
[2022-01-18 17:00] LABS: Glucose,Whole Blood 159 mg/dL (75-99)
[2022-01-18] MEDS: SERTRALINE 100 MG TAB PO SCH (20:41)
[2022-01-18] MEDS: PRAVASTATIN SODIUM 40 MG TAB PO SCH (20:41)
[2022-01-18] MEDS: MONTELUKAST 10 MG TAB PO SCH (20:41)
[2022-01-18 21:10] LABS: Glucose,Whole Blood 108 mg/dL (75-99)
--- NOTE | 2022-01-18 23:15 | P.PN ---
Subjective Progress Note Date: 01/18/22 This is a pleasant 71 years old female with past medical history of COPD, Diabetes Mellitus, Hypertension, ARDS secondary to pneumonia more than 10 years ago requiring tracheostomy tube insertion, COPD with established FEV1 of 41% of predicted, She presents because of worsening dyspnea especially over the last 2 days associated with some coughing especially in the morning but no chest pain. Associated with. Mild pitting edema noted to bilateral lower extremities. At home she uses 6 L per minute of oxygen and her currently she is on 12 units. She denies headache or weakness or numbness. No vomiting or diarrhea or abdominal pain. No urinary complaint. No fever. She denies smoking, alcohol or illicit drugs Patient is hypoxic and requiring 12 L of oxygen via nasal cannula to achieve saturation low 90s. Patient is afebrile. Leukocytosis of 20.4. Hemoglobin Is 10.4. INR Is 1.1. Creatinine 1.4 compared to baseline of 1.8-2.2 Chest x-ray: Chest x-ray reviewed by myself showing interval worsening of scattered airspace opacity projecting over the heart, correlate for pneumonia. Which is worse than chest x-ray done about 2 weeks ago, CHF is not excluded EKG: Sinus rhythm with sinus arrhythmia at [address] T changes In the emergency room patient received Lasix and breathing treatment 01/15/2022 Patient state in bed most of the time, fully awake, she is on 10 L oxygen via nasal cannula she has some chest pain this morning looks like pleuritic related to her pneumonia. Troponin were negative. She denies any other complaints. She is hemodynamically stable however. She has evidence of decreased blood cells with WBCs came back to normal today at 8.4, platelets 61, hemoglobin 8.1. This could be related to her sepsis. However she is also on subcu heparin but start this morning so selectively is the culprit for her thrombocytopenia however of her platelets below 50,000 then discontinue subcu heparin Her creatinine went up 1.4 to 2.5 daily. 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 there is no nephrotoxic agents. We will lower her Norvasc 10 mg down to 5 mg and also Lasix 40 mg twice a day into once daily. Also will give one-time dose of midodrine tonight 1 dose. she has a French catheter. We will send urine analysis. Treatment of her creatinine. She remains on cefepime, Levaquin and IV Lasix as above 01/16/2022 She continues on cefepime and lasix 40 mg daily, currently denies chest pain or shortness of breath. She continues on 10 LPM O2 and BIPAP at night. She notes she was never able to use the BIPAP at home after her last admission. Her BP is stable today, continues on Norvasc at 5 mg. Plt stable at 63k. Cr up to 2.5 from 1.8 yesterday. 01/17/2022 She remains on empiric cefepime, lasix, she continues on 10 LPM O2 and BIPAP at night. Her renal function continues to rise and up to 2.77 today. She currently denies chest pain, shortness of breath. 01/18/2022 She continues on cefepime, lasix held yesterday due to worsening renal function. Her creatinine is again elevated today. She continues to complain of dyspnea with exertion, she is wearing BIPAP at night and O2 is currently running at 7 LPM. Objective - Vital Signs Vital signs: Vital Signs Temp 98.1 F 01/18/22 19:25 Pulse 88 01/18/22 21:15 Resp 18 01/18/22 19:25 BP 124/67 01/18/22 19:25 Pulse Ox 96 01/18/22 19:25 Intake & Output 01/18/22 01/18/22 01/19/22 06:59 18:59 06:59 Output Total 400 Balance -400 Output: Urine 400 Other: Voiding Method Indwelling Catheter Indwelling Catheter # Voids 3 - Exam General: well nourished, well developed, NAD. Vitals reviewed Lungs: on BIPAP. No rales or wheezing. Decreased breath sounds CV: Regular rate and rhythm, no murmur. Peripheral pulses 2+ Abdomen: soft, nondistended, no organomegaly Skin: warm and dry. - Labs CBC & Chem 7: 01/16/22 07:48 01/18/22 05:02 Labs: Abnormal Lab Results - Last 24 Hours (Table) 01/18/22 01/18/22 01/18/22 Range/Units 05:02 05:02 07:09 Carbon Dioxide 32 H (22-30) mmol/L BUN 74 H (7-17) mg/dL Creatinine 2.87 H (0.52-1.04) mg/dL Glucose 132 H (74-99) mg/dL POC Glucose (mg/dL) 122 H (75-99) mg/dL Calcium 7.8 L (8.4-10.2) mg/dL Iron 31 L (50-170) ug/dL TIBC 193 L (228-460) ug/dL Transferrin 138.0 L (204.0-354.0) mg/dL Ferritin 473.0 H (10.0-291.0) ng/mL Urine Appearance (Clear) Urine Protein (Negative) Urine Ketones (Negative) Urine Blood (Negative) Ur Leukocyte Esterase (Negative) Urine WBC (0-5) /hpf Amorphous Sediment (None) /hpf Urine Bacteria (None) /hpf Urine Mucus (None) /hpf 01/18/22 01/18/22 01/18/22 Range/Units 11:36 15:20 16:58 Carbon Dioxide (22-30) mmol/L BUN (7-17) mg/dL Creatinine (0.52-1.04) mg/dL Glucose (74-99) mg/dL POC Glucose (mg/dL) 115 H 159 H (75-99) mg/dL Calcium (8.4-10.2) mg/dL Iron (50-170) ug/dL TIBC (228-460) ug/dL Transferrin (204.0-354.0) mg/dL Ferritin (10.0-291.0) ng/mL Urine Appearance Cloudy H (Clear) Urine Protein 2+ H (Negative) Urine Ketones Trace H (Negative) Urine Blood Trace H (Negative) Ur Leukocyte Esterase Moderate H (Negative) Urine WBC 9 H (0-5) /hpf Amorphous Sediment Rare H (None) /hpf Urine Bacteria Occasional H (None) /hpf Urine Mucus Rare H (None) /hpf 01/18/22 Range/Units 21:04 Carbon Dioxide (22-30) mmol/L BUN (7-17) mg/dL Creatinine (0.52-1.04) mg/dL Glucose (74-99) mg/dL POC Glucose (mg/dL) 108 H (75-99) mg/dL Calcium (8.4-10.2) mg/dL Iron (50-170) ug/dL TIBC (228-460) ug/dL Transferrin (204.0-354.0) mg/dL Ferritin (10.0-291.0) ng/mL Urine Appearance (Clear) Urine Protein (Negative) Urine Ketones (Negative) Urine Blood (Negative) Ur Leukocyte Esterase (Negative) Urine WBC (0-5) /hpf Amorphous Sediment (None) /hpf Urine Bacteria (None) /hpf Urine Mucus (None) /hpf Microbiology - Last 24 Hours (Table) 01/13/22 20:08 Blood Culture - Preliminary Blood No Growth after 120 hours 01/13/22 20:25 Blood Culture - Preliminary Blood No Growth after 96 hours Assessment and Plan Plan: Continue with cefepime, duonebs, pulmicort. Hold diuretics. Nephrology, Pulmonlogy following. Closely monitor renal function
[2022-01-19] MEDS: busPIRone HCl 5 MG TAB PO SCH ×2 (00:08→09:29)
[2022-01-19 00:36] LABS: Glucose,Whole Blood 110 mg/dL (75-99)
--- NOTE | 2022-01-19 00:44 | CT ---
CT scan of the brain. History weakness. Comparison 01/16/2020. FINDINGS: Exam performed without contrast. Ventricles have normal size. There is no mass effect or midline shift. There is no sign of intracrani al hemorrhage. Calvarium is intact. There is normal aeration of the mastoid sinuses. There is diffuse cerebral atrophy. IMPRESSION: Cerebral atrophy. No acute intracranial abnormality. Brain not changed compared to old exam.
[2022-01-19 00:58] LABS: Anisocytosis Slight; Basophils % (A) 0 %; Eosinophils # (A) 0.1 k/uL (0-0.7); Eosinophils % (A) 2 %; HCT 27.1 % (34.0-46.0); Hypochromasia Marked; Lymphocytes # (A) 0.3 k/uL (1.0-4.8); Lymphocytes % (A) 13 %; MCH 24.2 pg (25.0-35.0); MCHC 28.5 g/dL (31.0-37.0); MCV 84.8 fL (80.0-100.0); Mean Platelet Volume 10.6; Monocytes # (A) 0.2 k/uL (0-1.0); Monocytes % (A) 7 %; Neutrophils % (A) 77 %; RBC 3.19 m/uL (3.80-5.40); RDW 16.6 % (11.5-15.5); WBC 2.6 k/uL (3.8-10.6)
[2022-01-19 01:05] LABS: ABG Base Excess 5.7 mmol/L; ABG HCO3 32 mmol/L (21-25); ABG Oxygen Saturation 90.5 % (94-97); ABG PCO2 59 mmHg (35-45); ABG PH 7.33 (7.35-7.45); ABG TCO2 33 mmol/L (19-24); Allen Test Performed? Yes
[2022-01-19 01:08] LABS: HGB 7.7 gm/dL (11.4-16.0); Platelet Count 68 k/uL (150-450)
[2022-01-19 01:10] LABS: ABG PO2 59 mmHg (83-108)
[2022-01-19 01:13] LABS: Partial Thromboplastin Time 31.8 sec (22.0-30.0); Prothrombin Time 10.8 sec (9.0-12.0)
[2022-01-19 01:45] LABS: African American GFR (CKD) 18 (>60 ml/min/1.73 sqM); Albumin 2.7 g/dL (3.5-5.0); Albumin/Globulin Ratio 1.3; Anion Gap 6 mmol/L; Blood Urea Nitrogen 72 mg/dL (7-17); Calcium 7.8 mg/dL (8.4-10.2); Carbon Dioxide 31 mmol/L (22-30); Chloride 99 mmol/L (98-107); Globulin 2.1 g/dL; Glucose 100 mg/dL (74-99); Non-African American GFR(CKD) 16 (>60 ml/min/1.73 sqM); Potassium 4.1 mmol/L (3.5-5.1); Sodium 136 mmol/L (137-145); Total Bilirubin 0.5 mg/dL (0.2-1.3); Total Protein 4.8 g/dL (6.3-8.2)
[2022-01-19 01:46] LABS: ALT 15 U/L (4-34); AST 11 U/L (14-36); Alkaline Phosphatase 71 U/L (38-126)
--- NOTE | 2022-01-19 02:01 | CT ---
EXAMINATION TYPE: CODE STROKE: CTA head neck DATE OF EXAM: 01/19/2022 COMPARISON: None HISTORY: pain CT DLP: 749.1 mGycm Automated exposure control for dose reduction was used. CONTRAST: Performed with IV Contrast, patient injected with 65 mL of Isovue 370. Images obtained from the aortic arch to the vertex of the brain with IV contrast. There are Three-D p ostprocessed images. There is normal branching pattern of the great vessels on the aortic arch. There is bilateral arteria l flow in the subclavian arteries. There is arterial flow in the common internal and external carotid arteries bilaterally. Exam limited by motion and patient size. There is plaque formation in calcific ation at the carotid artery bifurcations bilaterally. The lumen is difficult to evaluate at the carot id artery bifurcations. There is metallic artifact consistent with carotid stents. Correlation with t he surgical history is needed. There is no evidence of carotid dissection. There is arterial flow in both vertebral arteries. No pankaj dence of vertebral artery dissection. There is arterial flow in the anterior middle and posterior cerebral arteries. There is no mass effec t. No evidence of intracranial aneurysm or neovascularity. No evidence of intracranial hemodynamic ar terial stenosis. There is normal enhancement of the venous sinuses. IMPRESSION: No intracranial angiographic abnormality. Bilateral metal artifact at the carotid artery bifurcations consistent with stents. No evidence of oc clusion. Flow at the stents is difficult to evaluate. Correlation with the patient's surgical history needed.
[2022-01-19 07:05] LABS: Glucose,Whole Blood 128 mg/dL (75-99)
[2022-01-19] MEDS: IPRATROPIUM-ALBUTEROL 3 ML NEB INHALATION SCH ×4 (07:37→21:10)
[2022-01-19] MEDS: SYMBICORT 80-4.5 MCG INHALER INHALATION SCH ×2 (07:37→21:10)
[2022-01-19] MEDS: INSULIN ASPART (NovoLOG) 100 UNIT/ML VIAL SQ SCH ×3 (08:30→17:19)
[2022-01-19] MEDS ORDERED: ASPIRIN 325 MG TAB PO SCH (09:00)
[2022-01-19 09:23] LABS: Basophils # (A) 0.01 X 10*3/uL (0.00-0.10); Basophils % (A) 0.3 %; Eosinophils # (A) 0.02 X 10*3/uL (0.04-0.35); Eosinophils % (A) 0.6 %; HCT 25.5 % (37.2-46.3); HGB 7.1 g/dL (12.0-15.0); Immature Grans, Automated 1.3 %; Lymphocytes # (A) 0.32 X 10*3/uL (0.90-5.00); MCH 23.9 pg (27.0-32.0); MCHC 27.8 g/dL (32.0-37.0); MCV 85.9 fL (80.0-97.0); Monocytes % (A) 9.4 %; NRBC Per 100 WBC 0 /100 WBCS (0.0-0.0); Neutrophils % (A) 78.4 %; Platelet Count 82 X 10*3/uL (140-440); RBC 2.97 X 10*6/uL (4.10-5.20); RDW 17.6 % (11.5-14.5); WBC 3.19 X 10*3/uL (4.50-10.00)
[2022-01-19 09:35] LABS: African American GFR (CKD) 18.1 (60.0-200.0); Anion Gap 12.8 mmol/L (10.00-18.00); BUN/Creat Ratio 23.03 Ratio (12.00-20.00); Blood Urea Nitrogen 66.8 mg/dL (9.0-27.0); Calcium 8.2 mg/dL (8.7-10.3); Carbon Dioxide 27.2 mmol/L (20.0-27.5); Magnesium 2.3 mg/dL (1.5-2.4); Non-African American GFR(CKD) 15.6 (60.0-200.0); Potassium 4.2 mmol/L (3.5-5.5)
[2022-01-19] MEDS ORDERED: FUROSEMIDE 10 MG/ML 4 ML VIAL IV STA (09:45)
[2022-01-19] MEDS: CEFEPIME 1 GM in SODIUM CHLORIDE 0.9% 50 ML IVPB SCH ×2 (10:05→21:37)
--- NOTE | 2022-01-19 10:23 | P.PN ---
Subjective Patient is seen in follow-up for acute kidney injury on chronic kidney disease. Creatinine stable at 2.9. Has a French catheter. Nonoliguric. Last night the patient was having jerking of her left upper extremity. She underwent brain CT as well as CT injury from of the head and neck which showed no acute changes. She is currently awake and alert. On BiPAP. Denies chest pain or shortness of breath. Vital signs are stable. General: Awake. No acute distress. HEENT: On BiPAP. LUNGS: Breath sounds decreased. HEART: Rate and Rhythm are regular. ABDOMEN: Soft, obese. EXTREMITITES: No edema. Objective - Vital Signs Vital signs: Vital Signs Temp 97.8 F 01/19/22 07:41 Pulse 84 01/19/22 07:41 Resp 20 01/19/22 07:41 BP 164/77 01/19/22 07:41 Pulse Ox 95 01/19/22 07:41 Intake & Output 01/18/22 01/19/22 01/19/22 18:59 06:59 18:59 Output Total 400 210 Balance -400 -210 Output: Urine 400 210 Other: Voiding Method Indwelling Catheter Indwelling Catheter - Labs CBC & Chem 7: 01/19/22 05:04 01/19/22 05:04 Labs: Abnormal Lab Results - Last 24 Hours (Table) 01/18/22 01/18/22 01/18/22 Range/Units 05:02 11:36 15:20 WBC (3.8-10.6) k/uL RBC (3.80-5.40) m/uL Hgb (11.4-16.0) gm/dL Hct (34.0-46.0) % MCH (25.0-35.0) pg MCHC (31.0-37.0) g/dL RDW (11.5-15.5) % Plt Count (150-450) k/uL MPV (9.5-12.2) fL Lymphocytes # (1.0-4.8) k/uL Eosinophils # (0.04-0.35) X 10*3/uL APTT (22.0-30.0) sec ABG pH (7.35-7.45) ABG pCO2 (35-45) mmHg ABG pO2 (83-108) mmHg ABG HCO3 (21-25) mmol/L ABG Total CO2 (19-24) mmol/L ABG O2 Saturation (94-97) % Sodium (137-145) mmol/L Carbon Dioxide (22-30) mmol/L BUN (7-17) mg/dL Creatinine (0.52-1.04) mg/dL Est GFR (CKD-EPI)AfAm (60.0-200.0) Est GFR (CKD-EPI)NonAf (60.0-200.0) BUN/Creatinine Ratio (12.00-20.00) Ratio Glucose (74-99) mg/dL POC Glucose (mg/dL) 115 H (75-99) mg/dL Plasma Lactic Acid Uday (0.7-2.0) mmol/L Calcium (8.4-10.2) mg/dL Iron 31 L (50-170) ug/dL TIBC 193 L (228-460) ug/dL Transferrin 138.0 L (204.0-354.0) mg/dL Ferritin 473.0 H (10.0-291.0) ng/mL AST (14-36) U/L Total Protein (6.3-8.2) g/dL Albumin (3.5-5.0) g/dL Urine Appearance Cloudy H (Clear) Urine Protein 2+ H (Negative) Urine Ketones Trace H (Negative) Urine Blood Trace H (Negative) Ur Leukocyte Esterase Moderate H (Negative) Urine WBC 9 H (0-5) /hpf Amorphous Sediment Rare H (None) /hpf Urine Bacteria Occasional H (None) /hpf Urine Mucus Rare H (None) /hpf 01/18/22 01/18/22 01/19/22 Range/Units 16:58 21:04 00:15 WBC (3.8-10.6) k/uL RBC (3.80-5.40) m/uL Hgb (11.4-16.0) gm/dL Hct (34.0-46.0) % MCH (25.0-35.0) pg MCHC (31.0-37.0) g/dL RDW (11.5-15.5) % Plt Count (150-450) k/uL MPV (9.5-12.2) fL Lymphocytes # (1.0-4.8) k/uL Eosinophils # (0.04-0.35) X 10*3/uL APTT (22.0-30.0) sec ABG pH (7.35-7.45) ABG pCO2 (35-45) mmHg ABG pO2 (83-108) mmHg ABG HCO3 (21-25) mmol/L ABG Total CO2 (19-24) mmol/L ABG O2 Saturation (94-97) % Sodium (137-145) mmol/L Carbon Dioxide (22-30) mmol/L BUN (7-17) mg/dL Creatinine (0.52-1.04) mg/dL Est GFR (CKD-EPI)AfAm (60.0-200.0) Est GFR (CKD-EPI)NonAf (60.0-200.0) BUN/Creatinine Ratio (12.00-20.00) Ratio Glucose (74-99) mg/dL POC Glucose (mg/dL) 159 H 108 H 110 H (75-99) mg/dL Plasma Lactic Acid Uday (0.7-2.0) mmol/L Calcium (8.4-10.2) mg/dL Iron (50-170) ug/dL TIBC (228-460) ug/dL Transferrin (204.0-354.0) mg/dL Ferritin (10.0-291.0) ng/mL AST (14-36) U/L Total Protein (6.3-8.2) g/dL Albumin (3.5-5.0) g/dL Urine Appearance (Clear) Urine Protein (Negative) Urine Ketones (Negative) Urine Blood (Negative) Ur Leukocyte Esterase (Negative) Urine WBC (0-5) /hpf Amorphous Sediment (None) /hpf Urine Bacteria (None) /hpf Urine Mucus (None) /hpf 01/19/22 01/19/22 01/19/22 Range/Units 00:45 00:45 00:45 WBC 2.6 L (3.8-10.6) k/uL RBC 3.19 L (3.80-5.40) m/uL Hgb 7.7 L D (11.4-16.0) gm/dL Hct 27.1 L (34.0-46.0) % MCH 24.2 L (25.0-35.0) pg MCHC 28.5 L (31.0-37.0) g/dL RDW 16.6 H (11.5-15.5) % Plt Count 68 L (150-450) k/uL MPV (9.5-12.2) fL Lymphocytes # 0.3 L (1.0-4.8) k/uL Eosinophils # (0.04-0.35) X 10*3/uL APTT 31.8 H (22.0-30.0) sec ABG pH (7.35-7.45) ABG pCO2 (35-45) mmHg ABG pO2 (83-108) mmHg ABG HCO3 (21-25) mmol/L ABG Total CO2 (19-24) mmol/L ABG O2 Saturation (94-97) % Sodium 136 L (137-145) mmol/L Carbon Dioxide 31 H (22-30) mmol/L BUN 72 H (7-17) mg/dL Creatinine 2.91 H (0.52-1.04) mg/dL Est GFR (CKD-EPI)AfAm (60.0-200.0) Est GFR (CKD-EPI)NonAf (60.0-200.0) BUN/Creatinine Ratio (12.00-20.00) Ratio Glucose 100 H (74-99) mg/dL POC Glucose (mg/dL) (75-99) mg/dL Plasma Lactic Acid Uday (0.7-2.0) mmol/L Calcium 7.8 L (8.4-10.2) mg/dL Iron (50-170) ug/dL TIBC (228-460) ug/dL Transferrin (204.0-354.0) mg/dL Ferritin (10.0-291.0) ng/mL AST 11 L (14-36) U/L Total Protein 4.8 L (6.3-8.2) g/dL Albumin 2.7 L (3.5-5.0) g/dL Urine Appearance (Clear) Urine Protein (Negative) Urine Ketones (Negative) Urine Blood (Negative) Ur Leukocyte Esterase (Negative) Urine WBC (0-5) /hpf Amorphous Sediment (None) /hpf Urine Bacteria (None) /hpf Urine Mucus (None) /hpf 01/19/22 01/19/22 01/19/22 Range/Units 00:45 01:00 05:04 WBC (3.8-10.6) k/uL RBC (3.80-5.40) m/uL Hgb (11.4-16.0) gm/dL Hct (34.0-46.0) % MCH (25.0-35.0) pg MCHC (31.0-37.0) g/dL RDW (11.5-15.5) % Plt Count (150-450) k/uL MPV (9.5-12.2) fL Lymphocytes # (1.0-4.8) k/uL Eosinophils # (0.04-0.35) X 10*3/uL APTT (22.0-30.0) sec ABG pH 7.33 L (7.35-7.45) ABG pCO2 59 H (35-45) mmHg ABG pO2 59 L* (83-108) mmHg ABG HCO3 32 H (21-25) mmol/L ABG Total CO2 33 H (19-24) mmol/L ABG O2 Saturation 90.5 L (94-97) % Sodium (137-145) mmol/L Carbon Dioxide (22-30) mmol/L BUN 66.8 H (7-17) mg/dL Creatinine 2.9 H (0.52-1.04) mg/dL Est GFR (CKD-EPI)AfAm 18.1 L (60.0-200.0) Est GFR (CKD-EPI)NonAf 15.6 L (60.0-200.0) BUN/Creatinine Ratio 23.03 H (12.00-20.00) Ratio Glucose 111 H (74-99) mg/dL POC Glucose (mg/dL) (75-99) mg/dL Plasma Lactic Acid Uday <0.5 L (0.7-2.0) mmol/L Calcium 8.2 L (8.4-10.2) mg/dL Iron (50-170) ug/dL TIBC (228-460) ug/dL Transferrin (204.0-354.0) mg/dL Ferritin (10.0-291.0) ng/mL AST (14-36) U/L Total Protein (6.3-8.2) g/dL Albumin (3.5-5.0) g/dL Urine Appearance (Clear) Urine Protein (Negative) Urine Ketones (Negative) Urine Blood (Negative) Ur Leukocyte Esterase (Negative) Urine WBC (0-5) /hpf Amorphous Sediment (None) /hpf Urine Bacteria (None) /hpf Urine Mucus (None) /hpf 01/19/22 01/19/22 Range/Units 05:04 07:01 WBC 3.19 L (3.8-10.6) k/uL RBC 2.97 L (3.80-5.40) m/uL Hgb 7.1 L (11.4-16.0) gm/dL Hct 25.5 L (34.0-46.0) % MCH 23.9 L (25.0-35.0) pg MCHC 27.8 L (31.0-37.0) g/dL RDW 17.6 H (11.5-15.5) % Plt Count 82 L (150-450) k/uL MPV 13.0 H (9.5-12.2) fL Lymphocytes # 0.32 L (1.0-4.8) k/uL Eosinophils # 0.02 L (0.04-0.35) X 10*3/uL APTT (22.0-30.0) sec ABG pH (7.35-7.45) ABG pCO2 (35-45) mmHg ABG pO2 (83-108) mmHg ABG HCO3 (21-25) mmol/L ABG Total CO2 (19-24) mmol/L ABG O2 Saturation (94-97) % Sodium (137-145) mmol/L Carbon Dioxide (22-30) mmol/L BUN (7-17) mg/dL Creatinine (0.52-1.04) mg/dL Est GFR (CKD-EPI)AfAm (60.0-200.0) Est GFR (CKD-EPI)NonAf (60.0-200.0) BUN/Creatinine Ratio (12.00-20.00) Ratio Glucose (74-99) mg/dL POC Glucose (mg/dL) 128 H (75-99) mg/dL Plasma Lactic Acid Uday (0.7-2.0) mmol/L Calcium (8.4-10.2) mg/dL Iron (50-170) ug/dL TIBC (228-460) ug/dL Transferrin (204.0-354.0) mg/dL Ferritin (10.0-291.0) ng/mL AST (14-36) U/L Total Protein (6.3-8.2) g/dL Albumin (3.5-5.0) g/dL Urine Appearance (Clear) Urine Protein (Negative) Urine Ketones (Negative) Urine Blood (Negative) Ur Leukocyte Esterase (Negative) Urine WBC (0-5) /hpf Amorphous Sediment (None) /hpf Urine Bacteria (None) /hpf Urine Mucus (None) /hpf Microbiology - Last 24 Hours (Table) 01/13/22 20:25 Blood Culture - Preliminary Blood No Growth after 120 hours 01/13/22 20:08 Blood Culture - Preliminary Blood No Growth after 120 hours Assessment and Plan Plan: Assessment: 1. Acute kidney injury secondary to ATN secondary to diuresis. Creatinine stable at 2.9 today. Renal ultrasound from December 2021 showed no evidence of hydronephrosis. 2. Chronic kidney disease stage IIIB secondary to diabetic kidney disease with baseline creatinine in the range of 1.5-2. 3. Chronic diastolic CHF with moderate to severe tricuspid regurgitation and pulmonary hypertension. 4. Acute hypoxic respiratory failure. 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 Questionable pneumonia. 5. History of COPD. 6. Anemia of chronic kidney disease. Iron deficiency noted. No active bleeding. Scheduled to receive a unit of blood today. 7. Hypertension with chronic kidney disease. Stable. 8. Questionable tremor versus myoclonic jerk. Brain CT and CTA injury from of the head and neck showed no acute changes. Neurology consulted. ?zoloft induced. Plan: Lasix 40 mg IV once after blood transfusion complete. I will also give her dose of IV iron today. Avoid nephrotoxins. Continue to monitor renal function and urine output. Monitor for contrast-induced acute kidney injury. Check chest x-ray. Check abdominal ultrasound to rule out ascites.
[2022-01-19] MEDS ORDERED: SODIUM FERRIC GLUCONAT-SUCROSE 125 MG in SODIUM CHLORIDE 0.9% 100 ML IVPB ONE (11:00)
--- NOTE | 2022-01-19 11:11 | P.CNNES ---
History of Present Illness Consult date: 01/19/22 Requesting physician: Adrian Gonzalez Reason for Consult: Right sided weakness, code stroke History of Present Illness: This is a 71-year-old woman with medical history of chronic kidney insufficiency, hypertension, diabetes mellitus, hypertension, COPD, severe pulmonary hypertension, congestive heart failure with diastolic dysfunction present emergency department on the 01/13/2022 for shortness of breath that's progressively worsening. Neurology team was consulted for code stroke for right-sided weakness. Some of the history is obtained from patient's daughter (who is at bedside), medical records as well as the patient's nurse. Per that daytime nurse today she stated that she had the patient yesterday and she felt the patient yesterday had the diffuse generalized weakness and the she was having myoclonic is dropping things but she did not notice any right-sided weakness. It seems that the patient overnight felt possibly the patient had right-sided weakness but the nurse today stated that she does not have right- sided weakness as a result of code stroke was activated overnight. Patient had a CT of the head on 01/19/2022 his past midnight as reported as cerebral atrophy. No acute abnormality. Brain not changed compared to old exam. CT angiography of the head and neck was reported as no intracranial angiographic abnormality. Bilateral metal artifact at the carotid artery bifurcation consistent with stents. No evidence of occlusion. For this is difficult to evaluate. Correlation with the patient's surgical history needed. Patient did not get IV TPA since outside the window and the risk outweighed the benefit. It is reported by the overnight nurse that the patient had NIH of a 7 around midnight and the points of the patient received was 1 loss of conscious of for question, 3 for right leg, 2 for limb ataxia, and 1 for best language. No IV TPA was given. I assume its because the ongoing last normal and the risk outweighed the benefit but I don't see any documentation. Upon seeing the patient today and she was compared by her daughter and the she was on the BiPAP machine. Per the patient's daughter the patient does not have any history of stroke or TIA in the past. She is alert oriented 4. She walks with a walker because of her chronic low back pain. As well as has knee pain. Again it was not felt by today's nurse that the patient has a right-sided weakness. Per the patient daughter the patient never had any carotid stenting to her knowledge. During this hospital state and summary the from reviewing the medical record is seems the patient has acute on chronic hypoxic respiratory failure due to multifactorial related to acute on chronic congestive heart failure, up fibrosis related to the history of COVID-19 infection possibly pneumonia. Patient also has acute on chronic kidney insufficiency. Patient's initial creatinine were on presentation was 1.44 and currently is 2.91 which is trending up. The BUN on presentation is 42 and the most recent is 72 also trending up. Calcium is 8.0 and most recent is 7.8. On initial presentation was blood cell is 20.4 thousand and most current one is a 2.6 thousand Hemoglobin is trending down was current one is 7.7 and the patient that as having anemia. The platelet the most recent one 68 also trending down Most currently urine analysis seems possible suggestive of urinary tract infection. Rest of the labs reviewed. Review of Systems Review of system is limited but apparent positive and negative as per HPI. Past Medical History Past Medical History: COPD, Diabetes Mellitus, Hypertension Additional Past Medical History / Comment(s): ARDS secondary to pneumonia more than 10 years ago requiring tracheostomy tube insertion, COPD with established FEV1 of 41% of predicted, diabetes mellitus, hypertension, history of morbid obesity History of Any Multi-Drug Resistant Organisms: None Reported Past Surgical History: Cholecystectomy, Hysterectomy Past Anesthesia/Blood Transfusion Reactions: No Reported Reaction Past Psychological History: Anxiety Smoking Status: Former smoker Past Alcohol Use History: None Reported Past Drug Use History: None Reported - Past Family History Mother Family Medical History: Congestive Heart Failure (CHF), Diabetes Mellitus Additional Family Medical History / Comment(s): The patient's mother had congestion heart failure and diabetes mellitus in the father had Parkinson's disease. Medications and Allergies Home Medications Medication Instructions Recorded Confirmed Type Albuterol Sulfate [Proair Hfa] 1 - 2 puff INHALATION RT-Q6H PRN 05/22/19 01/13/22 History Levothyroxine Sodium [Synthroid] 88 mcg PO DAILY 05/22/19 01/13/22 History Montelukast [Singulair] 10 mg PO HS 05/22/19 01/13/22 History Pravastatin Sodium [Pravachol] 40 mg PO HS 05/22/19 01/13/22 History Thyroid,Pork [Travel Ot Thyroid] 30 mg PO DAILY 05/22/19 01/13/22 History amLODIPine [Norvasc] 10 mg PO DAILY 05/22/19 01/13/22 History Budesonide [Pulmicort] 0.5 mg INHALATION RT-BID 12/16/21 01/13/22 History Ergocalciferol (Vitamin D2) 1,250 mcg PO CALIXTO 12/16/21 01/13/22 History [Drisdol (50,000 Iu)] Iron 18 mg PO BID 12/16/21 01/13/22 History busPIRone HCl [Buspar] 5 mg PO TID 12/16/21 01/13/22 History Budesonide/Formoterol Fumarate 2 puff INHALATION RT-BID 12/17/21 01/13/22 History [Symbicort 80-4.5 Mcg Inhaler] ALPRAZolam [Xanax] 0.5 mg PO HS PRN #3 tab 01/02/22 01/13/22 Rx INSULIN ASPART (NovoLOG) [NovoLOG 10 unit SQ AC-TID #10 ml 01/02/22 01/13/22 Rx (formulary)] Insulin Glargine [Lantus Vial] 20 unit SQ HS #10 ml 01/02/22 01/13/22 Rx Ipratropium-Albuterol Nebulize 3 ml INHALATION RT-Q4H PRN #0 01/02/22 01/13/22 Rx [Duoneb 0.5 mg-3 mg/3 ml Soln] Ipratropium-Albuterol Nebulize 3 ml INHALATION RT-QID ml 01/02/22 01/13/22 Rx [Duoneb 0.5 mg-3 mg/3 ml Soln] Isosorbide Mononitrate ER [Imdur] 30 mg PO DAILY #30 tablet 01/02/22 01/13/22 Rx Sertraline [Zoloft] 100 mg PO HS #0 01/02/22 01/13/22 Rx Tamsulosin [Flomax] 0.4 mg PO PC-BRKFST #30 01/02/22 01/13/22 Rx Torsemide [Demadex] 20 mg PO DAILY #30 tab 01/02/22 01/13/22 Rx hydrALAZINE HCL 100 mg PO Q8H #0 01/02/22 01/13/22 Rx Carvedilol [Coreg] 25 mg PO BID-W/MEALS 01/13/22 01/13/22 History predniSONE See Taper PO DIRECTED 01/13/22 01/13/22 History Allergies Allergy/AdvReac Type Severity Reaction Status Date / Time amoxicillin Allergy Anaphylaxis Verified 01/13/22 21:45 Penicillins Allergy Anaphylaxis Verified 01/13/22 21:45 zolpidem [From Ambien] AdvReac Confusion/A Verified 01/13/22 21:45 MS Physical Examination - Vital Signs Vital Signs: Vital Signs Temp Pulse Pulse Resp BP Pulse Ox 01/19/22 07:41 97.8 F 84 84 20 164/77 95 01/19/22 07:31 84 01/19/22 01:57 97.6 F 78 20 128/72 96 01/19/22 00:13 72 115/61 95 01/18/22 21:15 88 01/18/22 21:05 85 01/18/22 19:25 98.1 F 76 18 124/67 96 01/18/22 16:35 88 01/18/22 16:25 88 01/18/22 14:00 98.2 F 81 18 136/63 91 L 01/18/22 13:54 80 115/65 91 L 01/18/22 11:21 83 01/18/22 11:12 81 01/18/22 09:45 95 18 Intake and Output 01/18/22 01/19/22 01/19/22 22:59 06:59 14:59 Output Total 400 210 Balance -400 -210 Output: Urine 400 210 Other: Voiding Method Indwelling Catheter GENERAL: The patient is lying in bed and is not in acute distress. CHEST: The heart rate is regular rate rhythm. No murmurs to auscultation. No carotid bruit bilaterally. LUNG: Clear to auscultation bilaterally no wheezing noted throughout. Not labored breathing. Is on BIPAP machine. ABDOMEN/GI: Bowel sounds present in all 4 quadrants. No tenderness to palpation throughout. NEUROLOGICAL: Limited because of patient's condition/cooperation. Higher mental function: The patient is drowsy but is awakeable to voice. Oriented to self only. Otherwise is not communicating and falling back to leep. Is following minimal simple commands such as thumbs up. Cranial nerves: The pupils are round, equal and reactive to light. No facial droop. No dysarthria from limited examination. Otherwise rest is limited. Motor: Gait is deferred since on BiPAP. The strength is hard to assess indiv idual muscles because of her cooperation but lifting bilateral upper briefly above gravity and could not appreciated weakness but again hard to assess because of cooperation. Ankle dorsiflexion/plantar flexion is antigravity equally. Normal tone and bulk. Has myoclonus jerks of uppers briefly. Cerebellum: Unable to assess. Sensation: Unable to assess. Reflexes (right/left): 1+ throughout. Plantars are mute bilaterally. Results - Laboratory Findings CBC and BMP: 01/19/22 05:04 01/19/22 05:04 Abnormal Lab Findings: Abnormal Labs 01/13/22 01/13/22 01/14/22 19:55 19:55 06:57 WBC 20.4 H RBC Hgb 10.4 L Hct MCH 24.8 L MCHC 29.3 L RDW 17.2 H Plt Count 90 L Plt Count Comment MPV Immature Gran # Neutrophils # (Manual) 19.10 H Lymphocytes # Lymphocytes # (Manual) 0.41 L Monocytes # Eosinophils # Metamyelocytes # (Man) 0.20 H APTT ABG pH ABG pCO2 ABG pO2 ABG HCO3 ABG Total CO2 ABG O2 Saturation Sodium Chloride 96 L Carbon Dioxide 38 H BUN 42 H Creatinine 1.44 H Est GFR (CKD-EPI)AfAm Est GFR (CKD-EPI)NonAf BUN/Creatinine Ratio Glucose 185 H POC Glucose (mg/dL) 191 H Plasma Lactic Acid Uday Calcium 8.0 L Magnesium 1.5 L Iron TIBC Transferrin Ferritin Conjugated Bilirubin AST Total Protein 5.4 L Albumin 3.3 L Procalcitonin Urine Appearance Urine Protein Urine Ketones Urine Blood Ur Leukocyte Esterase Urine WBC Amorphous Sediment Urine Bacteria Hyaline Casts Urine Mucus 01/14/22 01/14/22 01/14/22 12:01 13:19 16:47 WBC RBC Hgb Hct MCH MCHC RDW Plt Count Plt Count Comment MPV Immature Gran # Neutrophils # (Manual) Lymphocytes # Lymphocytes # (Manual) Monocytes # Eosinophils # Metamyelocytes # (Man) APTT ABG pH ABG pCO2 ABG pO2 ABG HCO3 ABG Total CO2 ABG O2 Saturation Sodium Chloride Carbon Dioxide BUN Creatinine Est GFR (CKD-EPI)AfAm Est GFR (CKD-EPI)NonAf BUN/Creatinine Ratio Glucose POC Glucose (mg/dL) 209 H 263 H Plasma Lactic Acid Uday Calcium Magnesium Iron TIBC Transferrin Ferritin Conjugated Bilirubin AST Total Protein Albumin Procalcitonin 3.87 H Urine Appearance Urine Protein Urine Ketones Urine Blood Ur Leukocyte Esterase Urine WBC Amorphous Sediment Urine Bacteria Hyaline Casts Urine Mucus 01/14/22 01/15/22 01/15/22 21:36 03:53 03:53 WBC RBC 3.37 L Hgb 8.1 L Hct 29.3 L MCH 24.0 L MCHC 27.6 L RDW 17.7 H Plt Count 61 L Plt Count Comment DECREASED A MPV Immature Gran # 0.06 H Neutrophils # (Manual) Lymphocytes # 0.29 L Lymphocytes # (Manual) Monocytes # Eosinophils # 0.03 L Metamyelocytes # (Man) APTT ABG pH ABG pCO2 ABG pO2 ABG HCO3 ABG Total CO2 ABG O2 Saturation Sodium Chloride Carbon Dioxide BUN Creatinine Est GFR (CKD-EPI)AfAm Est GFR (CKD-EPI)NonAf BUN/Creatinine Ratio Glucose POC Glucose (mg/dL) 133 H Plasma Lactic Acid Uday Calcium Magnesium Iron TIBC Transferrin Ferritin Conjugated Bilirubin AST Total Protein Albumin Procalcitonin 4.08 H Urine Appearance Urine Protein Urine Ketones Urine Blood Ur Leukocyte Esterase Urine WBC Amorphous Sediment Urine Bacteria Hyaline Casts Urine Mucus 01/15/22 01/15/22 01/15/22 04:00 06:42 11:33 WBC RBC Hgb Hct MCH MCHC RDW Plt Count Plt Count Comment MPV Immature Gran # Neutrophils # (Manual) Lymphocytes # Lymphocytes # (Manual) Monocytes # Eosinophils # Metamyelocytes # (Man) APTT ABG pH ABG pCO2 ABG pO2 ABG HCO3 ABG Total CO2 ABG O2 Saturation Sodium Chloride Carbon Dioxide 29.0 H BUN 56.5 H Creatinine 2.5 H Est GFR (CKD-EPI)AfAm 21.6 L Est GFR (CKD-EPI)NonAf 18.6 L BUN/Creatinine Ratio 22.51 H Glucose POC Glucose (mg/dL) 102 H 109 H Plasma Lactic Acid Uday Calcium 8.2 L Magnesium Iron TIBC Transferrin Ferritin Conjugated Bilirubin AST Total Protein Albumin Procalcitonin Urine Appearance Urine Protein Urine Ketones Urine Blood Ur Leukocyte Esterase Urine WBC Amorphous Sediment Urine Bacteria Hyaline Casts Urine Mucus 01/15/22 01/15/22 01/15/22 16:48 21:27 21:32 WBC RBC Hgb Hct MCH MCHC RDW Plt Count Plt Count Comment MPV Immature Gran # Neutrophils # (Manual) Lymphocytes # Lymphocytes # (Manual) Monocytes # Eosinophils # Metamyelocytes # (Man) APTT ABG pH ABG pCO2 55 H ABG pO2 52 L* ABG HCO3 34 H ABG Total CO2 36 H ABG O2 Saturation 89.5 L Sodium Chloride Carbon Dioxide BUN Creatinine Est GFR (CKD-EPI)AfAm Est GFR (CKD-EPI)NonAf BUN/Creatinine Ratio Glucose POC Glucose (mg/dL) 168 H Plasma Lactic Acid Uday Calcium Magnesium Iron TIBC Transferrin Ferritin Conjugated Bilirubin AST Total Protein Albumin Procalcitonin Urine Appearance Urine Protein 1+ H Urine Ketones Urine Blood Ur Leukocyte Esterase Urine WBC 7 H Amorphous Sediment Occasional H Urine Bacteria Rare H Hyaline Casts 20 H Urine Mucus Occasional H 01/16/22 01/16/22 01/16/22 07:48 07:48 08:11 WBC RBC 3.29 L Hgb 7.9 L Hct 28.3 L MCH 24.0 L MCHC 27.9 L RDW 17.9 H Plt Count 64 L Plt Count Comment MPV 12.6 H Immature Gran # Neutrophils # (Manual) Lymphocytes # 0.30 L Lymphocytes # (Manual) Monocytes # 0.19 L Eosinophils # Metamyelocytes # (Man) APTT ABG pH ABG pCO2 ABG pO2 ABG HCO3 ABG Total CO2 ABG O2 Saturation Sodium Chloride Carbon Dioxide 29.3 H BUN 66.1 H Creatinine 2.6 H Est GFR (CKD-EPI)AfAm 20.7 L Est GFR (CKD-EPI)NonAf 17.8 L BUN/Creatinine Ratio 25.42 H Glucose 133 H POC Glucose (mg/dL) 157 H Plasma Lactic Acid Uday Calcium 8.5 L Magnesium Iron TIBC Transferrin Ferritin Conjugated Bilirubin <0.20 L AST 9 L Total Protein 5.0 L Albumin 3.3 L Procalcitonin Urine Appearance Urine Protein Urine Ketones Urine Blood Ur Leukocyte Esterase Urine WBC Amorphous Sediment Urine Bacteria Hyaline Casts Urine Mucus 01/16/22 01/16/22 01/17/22 11:19 16:53 06:59 WBC RBC Hgb Hct MCH MCHC RDW Plt Count Plt Count Comment MPV Immature Gran # Neutrophils # (Manual) Lymphocytes # Lymphocytes # (Manual) Monocytes # Eosinophils # Metamyelocytes # (Man) APTT ABG pH ABG pCO2 ABG pO2 ABG HCO3 ABG Total CO2 ABG O2 Saturation Sodium Chloride Carbon Dioxide BUN Creatinine Est GFR (CKD-EPI)AfAm Est GFR (CKD-EPI)NonAf BUN/Creatinine Ratio Glucose POC Glucose (mg/dL) 228 H 176 H 218 H Plasma Lactic Acid Uday Calcium Magnesium Iron TIBC Transferrin Ferritin Conjugated Bilirubin AST Total Protein Albumin Procalcitonin Urine Appearance Urine Protein Urine Ketones Urine Blood Ur Leukocyte Esterase Urine WBC Amorphous Sediment Urine Bacteria Hyaline Casts Urine Mucus 01/17/22 01/17/22 01/17/22 07:53 11:45 16:45 WBC RBC Hgb Hct MCH MCHC RDW Plt Count Plt Count Comment MPV Immature Gran # Neutrophils # (Manual) Lymphocytes # Lymphocytes # (Manual) Monocytes # Eosinophils # Metamyelocytes # (Man) APTT ABG pH ABG pCO2 ABG pO2 ABG HCO3 ABG Total CO2 ABG O2 Saturation Sodium Chloride Carbon Dioxide BUN 74 H Creatinine 2.77 H Est GFR (CKD-EPI)AfAm Est GFR (CKD-EPI)NonAf BUN/Creatinine Ratio Glucose 191 H POC Glucose (mg/dL) 120 H 139 H Plasma Lactic Acid Uday Calcium 7.5 L Magnesium Iron TIBC Transferrin Ferritin Conjugated Bilirubin AST Total Protein Albumin Procalcitonin Urine Appearance Urine Protein Urine Ketones Urine Blood Ur Leukocyte Esterase Urine WBC Amorphous Sediment Urine Bacteria Hyaline Casts Urine Mucus 01/18/22 01/18/22 01/18/22 05:02 05:02 07:09 WBC RBC Hgb Hct MCH MCHC RDW Plt Count Plt Count Comment MPV Immature Gran # Neutrophils # (Manual) Lymphocytes # Lymphocytes # (Manual) Monocytes # Eosinophils # Metamyelocytes # (Man) APTT ABG pH ABG pCO2 ABG pO2 ABG HCO3 ABG Total CO2 ABG O2 Saturation Sodium Chloride Carbon Dioxide 32 H BUN 74 H Creatinine 2.87 H Est GFR (CKD-EPI)AfAm Est GFR (CKD-EPI)NonAf BUN/Creatinine Ratio Glucose 132 H POC Glucose (mg/dL) 122 H Plasma Lactic Acid Uday Calcium 7.8 L Magnesium Iron 31 L TIBC 193 L Transferrin 138.0 L Ferritin 473.0 H Conjugated Bilirubin AST Total Protein Albumin Procalcitonin Urine Appearance Urine Protein Urine Ketones Urine Blood Ur Leukocyte Esterase Urine WBC Amorphous Sediment Urine Bacteria Hyaline Casts Urine Mucus 01/18/22 01/18/22 01/18/22 11:36 15:20 16:58 WBC RBC Hgb Hct MCH MCHC RDW Plt Count Plt Count Comment MPV Immature Gran # Neutrophils # (Manual) Lymphocytes # Lymphocytes # (Manual) Monocytes # Eosinophils # Metamyelocytes # (Man) APTT ABG pH ABG pCO2 ABG pO2 ABG HCO3 ABG Total CO2 ABG O2 Saturation Sodium Chloride Carbon Dioxide BUN Creatinine Est GFR (CKD-EPI)AfAm Est GFR (CKD-EPI)NonAf BUN/Creatinine Ratio Glucose POC Glucose (mg/dL) 115 H 159 H Plasma Lactic Acid Uday Calcium Magnesium Iron TIBC Transferrin Ferritin Conjugated Bilirubin AST Total Protein Albumin Procalcitonin Urine Appearance Cloudy H Urine Protein 2+ H Urine Ketones Trace H Urine Blood Trace H Ur Leukocyte Esterase Moderate H Urine WBC 9 H Amorphous Sediment Rare H Urine Bacteria Occasional H Hyaline Casts Urine Mucus Rare H 01/18/22 01/19/22 01/19/22 21:04 00:15 00:45 WBC 2.6 L RBC 3.19 L Hgb 7.7 L D Hct 27.1 L MCH 24.2 L MCHC 28.5 L RDW 16.6 H Plt Count 68 L Plt Count Comment MPV Immature Gran # Neutrophils # (Manual) Lymphocytes # 0.3 L Lymphocytes # (Manual) Monocytes # Eosinophils # Metamyelocytes # (Man) APTT ABG pH ABG pCO2 ABG pO2 ABG HCO3 ABG Total CO2 ABG O2 Saturation Sodium Chloride Carbon Dioxide BUN Creatinine Est GFR (CKD-EPI)AfAm Est GFR (CKD-EPI)NonAf BUN/Creatinine Ratio Glucose POC Glucose (mg/dL) 108 H 110 H Plasma Lactic Acid Uday Calcium Magnesium Iron TIBC Transferrin Ferritin Conjugated Bilirubin AST Total Protein Albumin Procalcitonin Urine Appearance Urine Protein Urine Ketones Urine Blood Ur Leukocyte Esterase Urine WBC Amorphous Sediment Urine Bacteria Hyaline Casts Urine Mucus 01/19/22 01/19/22 01/19/22 00:45 00:45 00:45 WBC RBC Hgb Hct MCH MCHC RDW Plt Count Plt Count Comment MPV Immature Gran # Neutrophils # (Manual) Lymphocytes # Lymphocytes # (Manual) Monocytes # Eosinophils # Metamyelocytes # (Man) APTT 31.8 H ABG pH ABG pCO2 ABG pO2 ABG HCO3 ABG Total CO2 ABG O2 Saturation Sodium 136 L Chloride Carbon Dioxide 31 H BUN 72 H Creatinine 2.91 H Est GFR (CKD-EPI)AfAm Est GFR (CKD-EPI)NonAf BUN/Creatinine Ratio Glucose 100 H POC Glucose (mg/dL) Plasma Lactic Acid Uday <0.5 L Calcium 7.8 L Magnesium Iron TIBC Transferrin Ferritin Conjugated Bilirubin AST 11 L Total Protein 4.8 L Albumin 2.7 L Procalcitonin Urine Appearance Urine Protein Urine Ketones Urine Blood Ur Leukocyte Esterase Urine WBC Amorphous Sediment Urine Bacteria Hyaline Casts Urine Mucus 01/19/22 01/19/22 01:00 07:01 WBC RBC Hgb Hct MCH MCHC RDW Plt Count Plt Count Comment MPV Immature Gran # Neutrophils # (Manual) Lymphocytes # Lymphocytes # (Manual) Monocytes # Eosinophils # Metamyelocytes # (Man) APTT ABG pH 7.33 L ABG pCO2 59 H ABG pO2 59 L* ABG HCO3 32 H ABG Total CO2 33 H ABG O2 Saturation 90.5 L Sodium Chloride Carbon Dioxide BUN Creatinine Est GFR (CKD-EPI)AfAm Est GFR (CKD-EPI)NonAf BUN/Creatinine Ratio Glucose POC Glucose (mg/dL) 128 H Plasma Lactic Acid Uday Calcium Magnesium Iron TIBC Transferrin Ferritin Conjugated Bilirubin AST Total Protein Albumin Procalcitonin Urine Appearance Urine Protein Urine Ketones Urine Blood Ur Leukocyte Esterase Urine WBC Amorphous Sediment Urine Bacteria Hyaline Casts Urine Mucus Assessment and Plan Assessment: Altered mental status due to multifactorial: Hypoxic encephalopathy as well as toxic-metabolic encephalopathy with possible due to underlying pneumonia Myoclonus due to above. ?Reported right sided weakness by overnight nurse on 01/18/2022 (on my exam it was hard to appreciate it but there is limitation because of her encephalopathy). Rule out stroke. Initial CT brain/CTA are unremarkable. Acute on chronic kidney insufficiency Acute on chronic hypoxic respiratory failure History of hypertension History of congestive heart failure with diastolic dysfunction Diabetes mellitus History of COVID-19 pneumonia Plan: Patient was started on aspirin 325 once by the stroke attending (Dr. Gonzalez), but I will decrease to 81mg daily because of thrombocytopenia and anemia. Patient is on pravastatin 40 mg daily at bedtime. I ordered MRI of the brain and carotid duplex. If unable to perform MRI Brain then will get repeat CT head in 2 days. Ordered routine EEG. I'll not start the patient on an antiepileptic drug unless there is epileptiform discharges or seizure on the EEG. Ordered ammonia level, TSH, vitamin B12, folate, lipid panel. Every 4 hours neuro checks PT and OT are consulted Pulmonary team is on board Nephrology team is on board We'll defer the rest of the medical management to the primary team. DVT prophylaxis the patient is on subcu heparin 5000 units every 12 hours. The plan was discussed with the patient's daughter (who is at bedside) and her nurse. Thank you for the consultation. Jaleel Mazariegos M.D. Neuro-hospitalist Time with Patient: Greater than 30
[2022-01-19 11:45] LABS: Glucose,Whole Blood 193 mg/dL (75-99)
[2022-01-19] MEDS ORDERED: DARBEPOETIN ALFA 40 MCG/0.4 ML SYRINGE SQ SCH (12:00)
[2022-01-19] MEDS: HEPARIN SODIUM,PORCINE/PF 5,000 UNIT/0.5 ML SYRINGE SQ SCH ×2 (12:41→21:37)
[2022-01-19] MEDS: FAMOTIDINE 20 MG TAB PO SCH (12:45)
[2022-01-19] MEDS: LEVOTHYROXINE 88 MCG TAB PO SCH (12:45)
[2022-01-19] MEDS: TAMSULOSIN 0.4 MG CAP.ER.24H PO SCH (12:45)
[2022-01-19] MEDS: carvediloL 12.5 MG TAB PO SCH ×2 (12:46→17:09)
--- NOTE | 2022-01-19 13:12 | XR ---
EXAMINATION TYPE: XR chest 1V portable DATE OF EXAM: 01/19/2022 Comparison: 01/17/2022 Clinical History: 71 year-old female evaluate for fluid overload Findings: Slight leftward patient rotation. Patient is obliqued towards the left. Heart mildly enlarged. Inters titial opacity. Small left and trace right pleural effusions persist. Some patchy retrocardiac opacit y persists as well. Impression: 1. Relatively similar exam. Correlate for CHF with mild interstitial edema. 2. Continued small left and trace right pleural effusions with adjacent atelectasis and/or consolidat ion.
--- NOTE | 2022-01-19 13:16 | XR ---
EXAMINATION TYPE: XR KUB portable DATE OF EXAM: 01/19/2022 CLINICAL DATA: 71-year-old female with distention, assess for ascites, [facility] COMPARISON: None FINDINGS: Prominent retrocardiac/left basilar opacity. Supine imaging limited for assessment of free air. Motion degraded exam. Cholecystectomy clips. Possible splenomegaly up to 20 cm versus projectional ar tifact. Nonobstructive bowel gas pattern. No significant stool burden. Vascular calcifications in the pelvis. Air extends distally to the rectum. IMPRESSION: 1. Recommend ultrasound to assess spleen size and exclude massive splenomegaly. 2. Nonobstructive bowel gas pattern. 3. Abnormal left basilar opacity could represent combination of pleural effusion and probable airspac e disease.
--- NOTE | 2022-01-19 13:44 | P.PN ---
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 And post COVID-19 inflammatory changes in the lungs On today's evaluation of 01/15/2022, the patient is stable. The patient is currently on 8 L of O2 by nasal cannula. Slightly less short of breath compared to yesterday. The patient was given IV Lasix yesterday and the patient has developed some interval worsening in the creatinine which is up to 2.5. Natasha milotn, the overall fluid balance has been -1.1 L over the past 24 hours. On today's blood work, the BUN is at 56 with a creatinine of 2.5. His serum bicarbonate 29 with a potassium level of 4.6. The pro calcitonin level is at 4.08. The patient is contemplated to O2 by nasal cannula. The patient is on a combination of cefepime and Levaquin. Cultures still pending for now. Meanwhile, the patient was receiving Lasix 40 mg IV every 12 hours and I'm going to reduce the dose with close monitoring of the renal function to prevent any acute kidney injury on this patient. She is resting comfortably in bed. Reevaluated today on 01/16/22, patient is now on 10 L high flow cannula, O2 saturation is marginal. Found out today that her Lasix had been placed on hold. Patient is developing worsening renal picture, however her chest x-ray seems to be worsening with worsening interstitial edema and post inflammatory changes in the lungs related to previous history of COVID-[address] the patient back on diuretics, and I will cut down her IV fluid, we'll recommend an ultrasound of the chest to determine if she needs left-sided thoracentesis. However ultrasound did not show much fluid on the left lung, hence no need for thoracentesis. On 01/17/2022 patient seen in follow-up on medical surgical floor. She sits up in the recliner, appears to be in no acute distress. She was wearing a BiPAP support with FiO2 of 75% overnight, she was on 3 L of oxygen her pulse ox was 89%. Her FiO2 flow was increased to 6 L. She does not appear to be in any acute distress, no fever overnight. Gen. she appears weak. She has exertional dyspnea, but no chest discomfort, no increased cough or phlegm production. She remains on empiric antibiotics in the form of cefepime. Cultures have been negative, she's been afebrile since admission. Her white count was improving since admission, her last CBC showed normal white count of 5.6, hemoglobin was 7.9, platelet count was 64, yesterday's labs also showed worsening renal function and creatinine was up to 2.6, today's creatinine is 2.77, B1 is 74, electrolytes are within normal limits. Initially patient's diuretics have been stopped however patient does have a chronic diastolic CHF, and chronic kidney disease. She was placed back on Lasix 40 mg every 12 hours which was later decreased to 40 mg once daily, ultrasound of the chest did not pleural fluid pocket that was possible to drain, right pleural effusion pocket was not marked in the left pleural effusion pocket was only 1.7 cm. Patient did have 2 pro calcitonin values that were elevated at 3.87, and 4.08 initially on 01/14/2022, and 01/15/2022. She had been on cefepime. On 01/18/2022 patient seen in follow-up on medical surgical floor. She appears to be in no distress, resting in bed, appears fatigued, but no acute distress. She did wear BiPAP support last night, she is currently on 7 L of oxygen and her pulse ox is 90-94%, no fever or chills. Remains off diuretics, her creatinine is up to 2.87 on today's labs. Patient has been on diuretics. Appetite is poor, she denies any nausea vomiting or diarrhea, she's had no fever, no chest discomfort, no cough or phlegm production. Nephrology consultation has been noted. On 01/19/2022 patient seen in follow-up on medical surgical floor. Last night she had increased confusion, tremors, she was having difficulty getting words out. Brain CT showed no acute intracranial abnormality. Angiography CT of the brain showed no intracranial angiographic abnormality. Blood gas was also completed showing pO2 of 59, pCO2 is 59, and pH of 7.33, patient has been on BiPAP support with pressures of 12 and 6 and FiO2 of 50%, no unilateral weakness was noted, neurology consultation has been requested, please refer to the neurology consultation and progress note. Currently carotid Doppler study has been completed, awaiting report. This morning chest x-ray has been completed showing CHF with mild interstitial edema. Small left and trace right pleural effusions. Patient's diuretics had been placed on hold in view of worsening renal function, nephrology is following, today's creatinine is 2.9, ammonia level is 9, white count is 3.19, hemoglobin is 7.1. Chest had no fever or chills, she remains on empiric antibiotics with cefepime. Blood cultures have shown no growth, no cough, no chest congestion, no phlegm production. Today she is awake and alert, she is in no acute distress, breathing is nonlabored, lung sounds are diminished. She is afebrile, she is answering simple questions to the best of her ability with BiPAP mask on. Objective - Vital Signs Vital signs: Vital Signs Temp 97.8 F 01/19/22 07:41 Pulse 86 01/19/22 11:45 Resp 20 01/19/22 07:41 BP 164/77 01/19/22 07:41 Pulse Ox 95 01/19/22 07:41 Intake & Output 01/18/22 01/19/22 01/19/22 18:59 06:59 18:59 Output Total 400 210 700 Balance -400 -210 -700 Output: Urine 400 210 700 Other: Voiding Method Indwelling Catheter Indwelling Catheter Indwelling Catheter - Exam GENERAL EXAM: Alert, weak, 71-year-old white female, on BiPAP support with pressures of 12 and 6 on FiO2 of 50%, with a pulse ox of 94% comfortable in no apparent distress. HEAD: Normocephalic/atraumatic. EYES: Normal reaction of pupils, equal size. Conjunctiva pink, sclera white. NOSE: Clear with pink turbinates. THROAT: No erythema or exudates. NECK: No masses, no JVD, no thyroid enlargement, no adenopathy. CHEST: No chest wall deformity. Symmetrical expansion. LUNGS: Equal air entry with bibasilar crackles CVS: Regular rate and rhythm, normal S1 and S2, no gallops, no murmurs, no rubs ABDOMEN: Soft, nontender. No hepatosplenomegaly, normal bowel sounds, no guarding or rigidity. EXTREMITIES: No clubbing, no edema no cyanosis, 2+ pulses and upper and lower extremities. MUSCULOSKELETAL: Muscle strength and tone normal. SPINE: No scoliosis or deformity SKIN: No rashes CENTRAL NERVOUS SYSTEM: Alert and oriented -3. No focal deficits, tone is normal in all 4 extremities. PSYCHIATRIC: Alert and oriented -3. Appropriate affect. Intact judgment and insight. - Labs CBC & Chem 7: 01/19/22 05:04 01/19/22 05:04 Labs: Abnormal Lab Results - Last 24 Hours (Table) 01/18/22 01/18/22 01/18/22 Range/Units 05:02 15:20 16:58 WBC (3.8-10.6) k/uL RBC (3.80-5.40) m/uL Hgb (11.4-16.0) gm/dL Hct (34.0-46.0) % MCH (25.0-35.0) pg MCHC (31.0-37.0) g/dL RDW (11.5-15.5) % Plt Count (150-450) k/uL MPV (9.5-12.2) fL Lymphocytes # (1.0-4.8) k/uL Eosinophils # (0.04-0.35) X 10*3/uL APTT (22.0-30.0) sec ABG pH (7.35-7.45) ABG pCO2 (35-45) mmHg ABG pO2 (83-108) mmHg ABG HCO3 (21-25) mmol/L ABG Total CO2 (19-24) mmol/L ABG O2 Saturation (94-97) % Sodium (137-145) mmol/L Carbon Dioxide (22-30) mmol/L BUN (7-17) mg/dL Creatinine (0.52-1.04) mg/dL Est GFR (CKD-EPI)AfAm (60.0-200.0) Est GFR (CKD-EPI)NonAf (60.0-200.0) BUN/Creatinine Ratio (12.00-20.00) Ratio Glucose (74-99) mg/dL POC Glucose (mg/dL) 159 H (75-99) mg/dL Plasma Lactic Acid Uday (0.7-2.0) mmol/L Calcium (8.4-10.2) mg/dL Iron 31 L (50-170) ug/dL TIBC 193 L (228-460) ug/dL Transferrin 138.0 L (204.0-354.0) mg/dL Ferritin 473.0 H (10.0-291.0) ng/mL AST (14-36) U/L Total Protein (6.3-8.2) g/dL Albumin (3.5-5.0) g/dL Urine Appearance Cloudy H (Clear) Urine Protein 2+ H (Negative) Urine Ketones Trace H (Negative) Urine Blood Trace H (Negative) Ur Leukocyte Esterase Moderate H (Negative) Urine WBC 9 H (0-5) /hpf Amorphous Sediment Rare H (None) /hpf Urine Bacteria Occasional H (None) /hpf Urine Mucus Rare H (None) /hpf Crossmatch 01/18/22 01/19/22 01/19/22 Range/Units 21:04 00:15 00:45 WBC 2.6 L (3.8-10.6) k/uL RBC 3.19 L (3.80-5.40) m/uL Hgb 7.7 L D (11.4-16.0) gm/dL Hct 27.1 L (34.0-46.0) % MCH 24.2 L (25.0-35.0) pg MCHC 28.5 L (31.0-37.0) g/dL RDW 16.6 H (11.5-15.5) % Plt Count 68 L (150-450) k/uL MPV (9.5-12.2) fL Lymphocytes # 0.3 L (1.0-4.8) k/uL Eosinophils # (0.04-0.35) X 10*3/uL APTT (22.0-30.0) sec ABG pH (7.35-7.45) ABG pCO2 (35-45) mmHg ABG pO2 (83-108) mmHg ABG HCO3 (21-25) mmol/L ABG Total CO2 (19-24) mmol/L ABG O2 Saturation (94-97) % Sodium (137-145) mmol/L Carbon Dioxide (22-30) mmol/L BUN (7-17) mg/dL Creatinine (0.52-1.04) mg/dL Est GFR (CKD-EPI)AfAm (60.0-200.0) Est GFR (CKD-EPI)NonAf (60.0-200.0) BUN/Creatinine Ratio (12.00-20.00) Ratio Glucose (74-99) mg/dL POC Glucose (mg/dL) 108 H 110 H (75-99) mg/dL Plasma Lactic Acid Uday (0.7-2.0) mmol/L Calcium (8.4-10.2) mg/dL Iron (50-170) ug/dL TIBC (228-460) ug/dL Transferrin (204.0-354.0) mg/dL Ferritin (10.0-291.0) ng/mL AST (14-36) U/L Total Protein (6.3-8.2) g/dL Albumin (3.5-5.0) g/dL Urine Appearance (Clear) Urine Protein (Negative) Urine Ketones (Negative) Urine Blood (Negative) Ur Leukocyte Esterase (Negative) Urine WBC (0-5) /hpf Amorphous Sediment (None) /hpf Urine Bacteria (None) /hpf Urine Mucus (None) /hpf Crossmatch 01/19/22 01/19/22 01/19/22 Range/Units 00:45 00:45 00:45 WBC (3.8-10.6) k/uL RBC (3.80-5.40) m/uL Hgb (11.4-16.0) gm/dL Hct (34.0-46.0) % MCH (25.0-35.0) pg MCHC (31.0-37.0) g/dL RDW (11.5-15.5) % Plt Count (150-450) k/uL MPV (9.5-12.2) fL Lymphocytes # (1.0-4.8) k/uL Eosinophils # (0.04-0.35) X 10*3/uL APTT 31.8 H (22.0-30.0) sec ABG pH (7.35-7.45) ABG pCO2 (35-45) mmHg ABG pO2 (83-108) mmHg ABG HCO3 (21-25) mmol/L ABG Total CO2 (19-24) mmol/L ABG O2 Saturation (94-97) % Sodium 136 L (137-145) mmol/L Carbon Dioxide 31 H (22-30) mmol/L BUN 72 H (7-17) mg/dL Creatinine 2.91 H (0.52-1.04) mg/dL Est GFR (CKD-EPI)AfAm (60.0-200.0) Est GFR (CKD-EPI)NonAf (60.0-200.0) BUN/Creatinine Ratio (12.00-20.00) Ratio Glucose 100 H (74-99) mg/dL POC Glucose (mg/dL) (75-99) mg/dL Plasma Lactic Acid Uday <0.5 L (0.7-2.0) mmol/L Calcium 7.8 L (8.4-10.2) mg/dL Iron (50-170) ug/dL TIBC (228-460) ug/dL Transferrin (204.0-354.0) mg/dL Ferritin (10.0-291.0) ng/mL AST 11 L (14-36) U/L Total Protein 4.8 L (6.3-8.2) g/dL Albumin 2.7 L (3.5-5.0) g/dL Urine Appearance (Clear) Urine Protein (Negative) Urine Ketones (Negative) Urine Blood (Negative) Ur Leukocyte Esterase (Negative) Urine WBC (0-5) /hpf Amorphous Sediment (None) /hpf Urine Bacteria (None) /hpf Urine Mucus (None) /hpf Crossmatch 01/19/22 01/19/22 01/19/22 Range/Units 01:00 05:04 05:04 WBC 3.19 L (3.8-10.6) k/uL RBC 2.97 L (3.80-5.40) m/uL Hgb 7.1 L (11.4-16.0) gm/dL Hct 25.5 L (34.0-46.0) % MCH 23.9 L (25.0-35.0) pg MCHC 27.8 L (31.0-37.0) g/dL RDW 17.6 H (11.5-15.5) % Plt Count 82 L (150-450) k/uL MPV 13.0 H (9.5-12.2) fL Lymphocytes # 0.32 L (1.0-4.8) k/uL Eosinophils # 0.02 L (0.04-0.35) X 10*3/uL APTT (22.0-30.0) sec ABG pH 7.33 L (7.35-7.45) ABG pCO2 59 H (35-45) mmHg ABG pO2 59 L* (83-108) mmHg ABG HCO3 32 H (21-25) mmol/L ABG Total CO2 33 H (19-24) mmol/L ABG O2 Saturation 90.5 L (94-97) % Sodium (137-145) mmol/L Carbon Dioxide (22-30) mmol/L BUN 66.8 H (7-17) mg/dL Creatinine 2.9 H (0.52-1.04) mg/dL Est GFR (CKD-EPI)AfAm 18.1 L (60.0-200.0) Est GFR (CKD-EPI)NonAf 15.6 L (60.0-200.0) BUN/Creatinine Ratio 23.03 H (12.00-20.00) Ratio Glucose 111 H (74-99) mg/dL POC Glucose (mg/dL) (75-99) mg/dL Plasma Lactic Acid Uday (0.7-2.0) mmol/L Calcium 8.2 L (8.4-10.2) mg/dL Iron (50-170) ug/dL TIBC (228-460) ug/dL Transferrin (204.0-354.0) mg/dL Ferritin (10.0-291.0) ng/mL AST (14-36) U/L Total Protein (6.3-8.2) g/dL Albumin (3.5-5.0) g/dL Urine Appearance (Clear) Urine Protein (Negative) Urine Ketones (Negative) Urine Blood (Negative) Ur Leukocyte Esterase (Negative) Urine WBC (0-5) /hpf Amorphous Sediment (None) /hpf Urine Bacteria (None) /hpf Urine Mucus (None) /hpf Crossmatch 01/19/22 01/19/22 01/19/22 Range/Units 07:01 10:54 11:44 WBC (3.8-10.6) k/uL RBC (3.80-5.40) m/uL Hgb (11.4-16.0) gm/dL Hct (34.0-46.0) % MCH (25.0-35.0) pg MCHC (31.0-37.0) g/dL RDW (11.5-15.5) % Plt Count (150-450) k/uL MPV (9.5-12.2) fL Lymphocytes # (1.0-4.8) k/uL Eosinophils # (0.04-0.35) X 10*3/uL APTT (22.0-30.0) sec ABG pH (7.35-7.45) ABG pCO2 (35-45) mmHg ABG pO2 (83-108) mmHg ABG HCO3 (21-25) mmol/L ABG Total CO2 (19-24) mmol/L ABG O2 Saturation (94-97) % Sodium (137-145) mmol/L Carbon Dioxide (22-30) mmol/L BUN (7-17) mg/dL Creatinine (0.52-1.04) mg/dL Est GFR (CKD-EPI)AfAm (60.0-200.0) Est GFR (CKD-EPI)NonAf (60.0-200.0) BUN/Creatinine Ratio (12.00-20.00) Ratio Glucose (74-99) mg/dL POC Glucose (mg/dL) 128 H 193 H (75-99) mg/dL Plasma Lactic Acid Uday (0.7-2.0) mmol/L Calcium (8.4-10.2) mg/dL Iron (50-170) ug/dL TIBC (228-460) ug/dL Transferrin (204.0-354.0) mg/dL Ferritin (10.0-291.0) ng/mL AST (14-36) U/L Total Protein (6.3-8.2) g/dL Albumin (3.5-5.0) g/dL Urine Appearance (Clear) Urine Protein (Negative) Urine Ketones (Negative) Urine Blood (Negative) Ur Leukocyte Esterase (Negative) Urine WBC (0-5) /hpf Amorphous Sediment (None) /hpf Urine Bacteria (None) /hpf Urine Mucus (None) /hpf Crossmatch See Detail Microbiology - Last 24 Hours (Table) 01/13/22 20:25 Blood Culture - Preliminary Blood No Growth after 120 hours 01/13/22 20:08 Blood Culture - Preliminary Blood No Growth after 120 hours Assessment and Plan Plan: Assessment: #1. 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 Patient has recent history of urinary tract infection related to Enterococcus faecalis and patient had completed a course of daptomycin #2. Acute on chronic kidney injury #3. Chronic hypoxic respiratory failure related to post COVID syndrome since September 2021 patient had been on oxygen at 6 L/m #4. Prior history of acute respiratory distress syndrome requiring prolonged intubation and mechanical ventilation and eventual tracheostomy tube insertion and subsequent decannulation #5. History of severe COPD with baseline FEV1 of 41% of predicted #6. History of hypothyroidism #7. Diabetes mellitus type 2 #8. History of hypertension #9. Chronic kidney disease stage IIIB #10. Moderately severe pulmonary hypertension #11. Morbid obesity with BMI of 38.4 kg/m #12. Recent hospitalization for acute on chronic CHF with diastolic dysfunction, urinary tract infection related to Enterococcus faecalis #13. Altered mental status, multifactorial, related to hypoxia, toxic metabolic encephalopathy #14. Tremors, myoclonus, neurology is on the case Plan: Continue BiPAP support Blood gases have been reviewed Patient may be given a trial on nasal cannula Neurology workup is underway Patient is awake and alert, she is answering simple questions She received a single dose of Lasix per nephrology We'll continue to follow her clinical course Overall prognosis is extremely guarded CODE STATUS has been discussed with the patient's daughter, and the daughter stated that per patient's wishes she is to remain a full code at this time I have personally seen and examined the patient, performed the documentation and the assessment and plan as written. Number of minutes spent on the visit: 10 Time with Patient: Less than 30
--- NOTE | 2022-01-19 14:53 | US ---
EXAMINATION TYPE: US abdomen limited DATE OF EXAM: 01/19/2022 COMPARISON: NONE DATE OF EXAM: 01/19/2022 COMPARISON: Radiograph same day CLINICAL HISTORY: 71-year-old female pain, r/o ascites. TECHNIQUE: Multiple sonographic images of the 4 abdominal quadrants for assessment of ascites fluid. FINDINGS: No fluid visualized. IMPRESSION: No abdominal ascites appreciated. The organs were not specifically assessed. Dedicated ultrasound can exclude the possibility of splenomegaly as questioned on the radiograph same day.
[2022-01-19 15:38] LABS: Chol/HDL Ratio 2.28 Ratio; LDL Cholesterol,Calculated 27.2 mg/dL (0.0-131.0)
[2022-01-19 16:09] LABS: Glucose,Whole Blood 207 mg/dL (75-99)
--- NOTE | 2022-01-19 16:39 | US ---
EXAMINATION TYPE: US carotid duplex BILAT DATE OF EXAM: 01/19/2022 COMPARISON: NONE CLINICAL HISTORY: stroke. Stroke, CTA said stenting at bulbs, pt's daughter said no stenting, large h abitus patient on O2 machine EXAM MEASUREMENTS: RIGHT: Peak Systolic Velocity (PSV) cm/sec ----- Right CCA: 91.4 ----- Right ICA: 108.2 ----- Right ECA: 76.5 ICA/CCA ratio: 1.2 RIGHT: End Diastole cm/sec ----- Right CCA: 22.8 ----- Right ICA: 26.7 ----- Right ECA: 11.7 LEFT: Peak Systolic Velocity (PSV) cm/sec ----- Left CCA: 73.5 ----- Left ICA: 106.9 ----- Left ECA: 94.3 ICA/CCA ratio: 1.5 LEFT: End Diastole cm/sec ----- Left CCA: 11.6 ----- Left ICA: 20.1 ----- Left ECA: 6.6 VERTEBRALS (direction of flow): Right Vertebral: unable to view due to artifact from O2 machine and patients inability to turn head Left Vertebral: unable to view due to artifact from O2 machine and patients inability to turn head Rhythm: Normal Heterogeneous plaque at bilateral bulbs, no significant stenosis seen IMPRESSION: 1. Less than 50% stenosis of the bilateral carotid systems. 2. Nonevaluation the vertebral arteries. Criteria for Assigning % of Stenosis / Diameter reduction (Estimation based on the indirect measurements of the internal carotid artery velocities (ICA PSV). 1. Normal (no stenosis)=ICA PSV < 125 cm/s: ratio < 2.0: ICA EDV<40 cm/s. 2. Less than 50% stenosis=ICA PSV < 125 cm/s: ratio < 2.0: ICA EDV<40 cm/s. 3. 50 to 69% stenosis=ICA PSV of 125 to 230 cm/s: ration 2.0 ? 4.0: ICA EDV 40-100 cm/s. 4. Greater than 70% stenosis to near occlusion= ICA PSV > 230 cm/s: ratio > 4.0: ICA EDV > 100 cm/s. 5. Near occlusion= ICA PSV velocities may be low or undetectable: variable ratio and ICA EDV. 6. Total occlusion=unable to detect flow.
[2022-01-19] MEDS: amLODIPine 5 MG TAB PO SCH (17:09)
[2022-01-19] MEDS: ISOSORBIDE MONONITRATE ER 30 MG TAB.ER.24H PO SCH (17:09)
[2022-01-19 20:18] LABS: Glucose,Whole Blood 117 mg/dL (75-99)
[2022-01-19] MEDS: MONTELUKAST 10 MG TAB PO SCH (21:50)
[2022-01-19] MEDS: PRAVASTATIN SODIUM 40 MG TAB PO SCH (21:50)
[2022-01-19] MEDS: SERTRALINE 100 MG TAB PO SCH (21:50)
--- NOTE | 2022-01-19 23:46 | P.PN ---
Subjective Progress Note Date: 01/19/22 This is a pleasant 71 years old female with past medical history of COPD, Diabetes Mellitus, Hypertension, ARDS secondary to pneumonia more than 10 years ago requiring tracheostomy tube insertion, COPD with established FEV1 of 41% of predicted, She presents because of worsening dyspnea especially over the last 2 days associated with some coughing especially in the morning but no chest pain. Associated with. Mild pitting edema noted to bilateral lower extremities. At home she uses 6 L per minute of oxygen and her currently she is on 12 units. She denies headache or weakness or numbness. No vomiting or diarrhea or abdominal pain. No urinary complaint. No fever. She denies smoking, alcohol or illicit drugs Patient is hypoxic and requiring 12 L of oxygen via nasal cannula to achieve saturation low 90s. Patient is afebrile. Leukocytosis of 20.4. Hemoglobin Is 10.4. INR Is 1.1. Creatinine 1.4 compared to baseline of 1.8-2.2 Chest x-ray: Chest x-ray reviewed by myself showing interval worsening of scattered airspace opacity projecting over the heart, correlate for pneumonia. Which is worse than chest x-ray done about 2 weeks ago, CHF is not excluded EKG: Sinus rhythm with sinus arrhythmia at [address] T changes In the emergency room patient received Lasix and breathing treatment 01/15/2022 Patient state in bed most of the time, fully awake, she is on 10 L oxygen via nasal cannula she has some chest pain this morning looks like pleuritic related to her pneumonia. Troponin were negative. She denies any other complaints. She is hemodynamically stable however. She has evidence of decreased blood cells with WBCs came back to normal today at 8.4, platelets 61, hemoglobin 8.1. This could be related to her sepsis. However she is also on subcu heparin but start this morning so selectively is the culprit for her thrombocytopenia however of her platelets below 50,000 then discontinue subcu heparin Her creatinine went up 1.4 to 2.5 daily. 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 there is no nephrotoxic agents. We will lower her Norvasc 10 mg down to 5 mg and also Lasix 40 mg twice a day into once daily. Also will give one-time dose of midodrine tonight 1 dose. she has a French catheter. We will send urine analysis. Treatment of her creatinine. She remains on cefepime, Levaquin and IV Lasix as above 01/16/2022 She continues on cefepime and lasix 40 mg daily, currently denies chest pain or shortness of breath. She continues on 10 LPM O2 and BIPAP at night. She notes she was never able to use the BIPAP at home after her last admission. Her BP is stable today, continues on Norvasc at 5 mg. Plt stable at 63k. Cr up to 2.5 from 1.8 yesterday. 01/17/2022 She remains on empiric cefepime, lasix, she continues on 10 LPM O2 and BIPAP at night. Her renal function continues to rise and up to 2.77 today. She currently denies chest pain, shortness of breath. 01/18/2022 She continues on cefepime, lasix held yesterday due to worsening renal function. Her creatinine is again elevated today. She continues to complain of dyspnea with exertion, she is wearing BIPAP at night and O2 is currently running at 7 LPM. 01/19/2022 Her Hgb is down to 7.2 today, she is having more shortness of breath and c onfusion per daughter as well as jerking movements at times. She continues on BIPAP alternating with NC at 7 LPM. She continues on cefepime Objective - Vital Signs Vital signs: Vital Signs Temp 98.6 F 01/19/22 18:50 Pulse 82 01/19/22 21:27 Resp 22 01/19/22 18:50 BP 142/66 01/19/22 18:50 Pulse Ox 98 01/19/22 18:50 Intake & Output 01/19/22 01/19/22 01/20/22 06:59 18:59 06:59 Intake Total 1110 Output Total 210 950 Balance -210 160 Intake: Oral 800 Blood Product 310 Rc As-1 Unit 310 [id number] Output: Urine 210 950 Other: Voiding Method Indwelling Catheter Indwelling Catheter Indwelling Catheter - Exam General: well nourished, well developed, NAD. Vitals reviewed Lungs: on BIPAP. No rales or wheezing. Decreased breath sounds CV: Regular rate and rhythm, no murmur. Peripheral pulses 2+ Abdomen: soft, nondistended, no organomegaly Skin: warm and dry. - Labs CBC & Chem 7: 01/19/22 05:04 01/19/22 05:04 Labs: Abnormal Lab Results - Last 24 Hours (Table) 01/19/22 01/19/22 01/19/22 Range/Units 00:15 00:45 00:45 WBC 2.6 L (3.8-10.6) k/uL RBC 3.19 L (3.80-5.40) m/uL Hgb 7.7 L D (11.4-16.0) gm/dL Hct 27.1 L (34.0-46.0) % MCH 24.2 L (25.0-35.0) pg MCHC 28.5 L (31.0-37.0) g/dL RDW 16.6 H (11.5-15.5) % Plt Count 68 L (150-450) k/uL MPV (9.5-12.2) fL Lymphocytes # 0.3 L (1.0-4.8) k/uL Eosinophils # (0.04-0.35) X 10*3/uL APTT 31.8 H (22.0-30.0) sec ABG pH (7.35-7.45) ABG pCO2 (35-45) mmHg ABG pO2 (83-108) mmHg ABG HCO3 (21-25) mmol/L ABG Total CO2 (19-24) mmol/L ABG O2 Saturation (94-97) % Sodium (137-145) mmol/L Carbon Dioxide (22-30) mmol/L BUN (7-17) mg/dL Creatinine (0.52-1.04) mg/dL Est GFR (CKD-EPI)AfAm (60.0-200.0) Est GFR (CKD-EPI)NonAf (60.0-200.0) BUN/Creatinine Ratio (12.00-20.00) Ratio Glucose (74-99) mg/dL POC Glucose (mg/dL) 110 H (75-99) mg/dL Plasma Lactic Acid Uday (0.7-2.0) mmol/L Calcium (8.4-10.2) mg/dL AST (14-36) U/L Total Protein (6.3-8.2) g/dL Albumin (3.5-5.0) g/dL HDL Cholesterol (40.00-60.00) mg/dL Crossmatch 01/19/22 01/19/22 01/19/22 Range/Units 00:45 00:45 01:00 WBC (3.8-10.6) k/uL RBC (3.80-5.40) m/uL Hgb (11.4-16.0) gm/dL Hct (34.0-46.0) % MCH (25.0-35.0) pg MCHC (31.0-37.0) g/dL RDW (11.5-15.5) % Plt Count (150-450) k/uL MPV (9.5-12.2) fL Lymphocytes # (1.0-4.8) k/uL Eosinophils # (0.04-0.35) X 10*3/uL APTT (22.0-30.0) sec ABG pH 7.33 L (7.35-7.45) ABG pCO2 59 H (35-45) mmHg ABG pO2 59 L* (83-108) mmHg ABG HCO3 32 H (21-25) mmol/L ABG Total CO2 33 H (19-24) mmol/L ABG O2 Saturation 90.5 L (94-97) % Sodium 136 L (137-145) mmol/L Carbon Dioxide 31 H (22-30) mmol/L BUN 72 H (7-17) mg/dL Creatinine 2.91 H (0.52-1.04) mg/dL Est GFR (CKD-EPI)AfAm (60.0-200.0) Est GFR (CKD-EPI)NonAf (60.0-200.0) BUN/Creatinine Ratio (12.00-20.00) Ratio Glucose 100 H (74-99) mg/dL POC Glucose (mg/dL) (75-99) mg/dL Plasma Lactic Acid Uday <0.5 L (0.7-2.0) mmol/L Calcium 7.8 L (8.4-10.2) mg/dL AST 11 L (14-36) U/L Total Protein 4.8 L (6.3-8.2) g/dL Albumin 2.7 L (3.5-5.0) g/dL HDL Cholesterol (40.00-60.00) mg/dL Crossmatch 01/19/22 01/19/22 01/19/22 Range/Units 05:04 05:04 05:04 WBC 3.19 L (3.8-10.6) k/uL RBC 2.97 L (3.80-5.40) m/uL Hgb 7.1 L (11.4-16.0) gm/dL Hct 25.5 L (34.0-46.0) % MCH 23.9 L (25.0-35.0) pg MCHC 27.8 L (31.0-37.0) g/dL RDW 17.6 H (11.5-15.5) % Plt Count 82 L (150-450) k/uL MPV 13.0 H (9.5-12.2) fL Lymphocytes # 0.32 L (1.0-4.8) k/uL Eosinophils # 0.02 L (0.04-0.35) X 10*3/uL APTT (22.0-30.0) sec ABG pH (7.35-7.45) ABG pCO2 (35-45) mmHg ABG pO2 (83-108) mmHg ABG HCO3 (21-25) mmol/L ABG Total CO2 (19-24) mmol/L ABG O2 Saturation (94-97) % Sodium (137-145) mmol/L Carbon Dioxide (22-30) mmol/L BUN 66.8 H (7-17) mg/dL Creatinine 2.9 H (0.52-1.04) mg/dL Est GFR (CKD-EPI)AfAm 18.1 L (60.0-200.0) Est GFR (CKD-EPI)NonAf 15.6 L (60.0-200.0) BUN/Creatinine Ratio 23.03 H (12.00-20.00) Ratio Glucose 111 H (74-99) mg/dL POC Glucose (mg/dL) (75-99) mg/dL Plasma Lactic Acid Uday (0.7-2.0) mmol/L Calcium 8.2 L (8.4-10.2) mg/dL AST (14-36) U/L Total Protein (6.3-8.2) g/dL Albumin (3.5-5.0) g/dL HDL Cholesterol 38.90 L (40.00-60.00) mg/dL Crossmatch 01/19/22 01/19/22 01/19/22 Range/Units 07:01 10:54 11:44 WBC (3.8-10.6) k/uL RBC (3.80-5.40) m/uL Hgb (11.4-16.0) gm/dL Hct (34.0-46.0) % MCH (25.0-35.0) pg MCHC (31.0-37.0) g/dL RDW (11.5-15.5) % Plt Count (150-450) k/uL MPV (9.5-12.2) fL Lymphocytes # (1.0-4.8) k/uL Eosinophils # (0.04-0.35) X 10*3/uL APTT (22.0-30.0) sec ABG pH (7.35-7.45) ABG pCO2 (35-45) mmHg ABG pO2 (83-108) mmHg ABG HCO3 (21-25) mmol/L ABG Total CO2 (19-24) mmol/L ABG O2 Saturation (94-97) % Sodium (137-145) mmol/L Carbon Dioxide (22-30) mmol/L BUN (7-17) mg/dL Creatinine (0.52-1.04) mg/dL Est GFR (CKD-EPI)AfAm (60.0-200.0) Est GFR (CKD-EPI)NonAf (60.0-200.0) BUN/Creatinine Ratio (12.00-20.00) Ratio Glucose (74-99) mg/dL POC Glucose (mg/dL) 128 H 193 H (75-99) mg/dL Plasma Lactic Acid Uday (0.7-2.0) mmol/L Calcium (8.4-10.2) mg/dL AST (14-36) U/L Total Protein (6.3-8.2) g/dL Albumin (3.5-5.0) g/dL HDL Cholesterol (40.00-60.00) mg/dL Crossmatch See Detail 01/19/22 01/19/22 Range/Units 16:07 20:16 WBC (3.8-10.6) k/uL RBC (3.80-5.40) m/uL Hgb (11.4-16.0) gm/dL Hct (34.0-46.0) % MCH (25.0-35.0) pg MCHC (31.0-37.0) g/dL RDW (11.5-15.5) % Plt Count (150-450) k/uL MPV (9.5-12.2) fL Lymphocytes # (1.0-4.8) k/uL Eosinophils # (0.04-0.35) X 10*3/uL APTT (22.0-30.0) sec ABG pH (7.35-7.45) ABG pCO2 (35-45) mmHg ABG pO2 (83-108) mmHg ABG HCO3 (21-25) mmol/L ABG Total CO2 (19-24) mmol/L ABG O2 Saturation (94-97) % Sodium (137-145) mmol/L Carbon Dioxide (22-30) mmol/L BUN (7-17) mg/dL Creatinine (0.52-1.04) mg/dL Est GFR (CKD-EPI)AfAm (60.0-200.0) Est GFR (CKD-EPI)NonAf (60.0-200.0) BUN/Creatinine Ratio (12.00-20.00) Ratio Glucose (74-99) mg/dL POC Glucose (mg/dL) 207 H 117 H (75-99) mg/dL Plasma Lactic Acid Uday (0.7-2.0) mmol/L Calcium (8.4-10.2) mg/dL AST (14-36) U/L Total Protein (6.3-8.2) g/dL Albumin (3.5-5.0) g/dL HDL Cholesterol (40.00-60.00) mg/dL Crossmatch Microbiology - Last 24 Hours (Table) 01/13/22 20:25 Blood Culture - Final Blood No Growth after 144 hours 01/13/22 20:08 Blood Culture - Final Blood No Growth after 144 hours Assessment and Plan Plan: Transfuse 1 U PRBC today. Consult to neurology for tremor. MRI brain and carotid US ordered. Continue with cefepime, duonebs, pulmicort. Nephrology, Pulmonlogy following. Closely monitor renal function
[2022-01-20 01:43] VITALS: RESP 18
[2022-01-20] MEDS: LEVOTHYROXINE 88 MCG TAB PO SCH (04:40)
[2022-01-20 07:06] LABS: Glucose,Whole Blood 131 mg/dL (75-99)
[2022-01-20] MEDS: SYMBICORT 80-4.5 MCG INHALER INHALATION SCH (07:41)
[2022-01-20] MEDS: IPRATROPIUM-ALBUTEROL 3 ML NEB INHALATION SCH ×4 (07:41→16:38)
[2022-01-20] MEDS: INSULIN ASPART (NovoLOG) 100 UNIT/ML VIAL SQ SCH ×2 (08:50→12:07)
[2022-01-20] MEDS: busPIRone HCl 5 MG TAB PO SCH ×2 (08:59→15:53)
[2022-01-20] MEDS: amLODIPine 5 MG TAB PO SCH (08:59)
[2022-01-20] MEDS: FAMOTIDINE 20 MG TAB PO SCH (08:59)
[2022-01-20] MEDS: TAMSULOSIN 0.4 MG CAP.ER.24H PO SCH (08:59)
[2022-01-20] MEDS: carvediloL 12.5 MG TAB PO SCH (08:59)
[2022-01-20] MEDS: ISOSORBIDE MONONITRATE ER 30 MG TAB.ER.24H PO SCH (08:59)
[2022-01-20] MEDS: HEPARIN SODIUM,PORCINE/PF 5,000 UNIT/0.5 ML SYRINGE SQ SCH (08:59)
[2022-01-20] MEDS ORDERED: ASPIRIN 81 MG PO SCH (09:00)
[2022-01-20] MEDS: CEFEPIME 1 GM in SODIUM CHLORIDE 0.9% 50 ML IVPB SCH (09:00)
[2022-01-20 09:29] LABS: African American GFR (CKD) 20.7 (60.0-200.0); Albumin 3.2 g/dL (3.8-4.9); Albumin/Globulin Ratio 2.13 (1.60-3.17); Anion Gap 12.4 mmol/L (10.00-18.00); BUN/Creat Ratio 23.54 Ratio (12.00-20.00); Blood Urea Nitrogen 61.2 mg/dL (9.0-27.0); Calcium 8.6 mg/dL (8.7-10.3); Carbon Dioxide 29.6 mmol/L (20.0-27.5); Globulin 1.5 g/dL (1.6-3.3); Magnesium 2.1 mg/dL (1.5-2.4); Non-African American GFR(CKD) 17.8 (60.0-200.0); Potassium 4.5 mmol/L (3.5-5.5); Total Bilirubin 0.3 mg/dL (0.30-1.20); Total Protein 4.7 g/dL (6.2-8.2)
[2022-01-20] MEDS: ACETAMINOPHEN TAB 325 MG TAB PO PRN (10:46)
--- NOTE | 2022-01-20 10:52 | P.PN ---
Subjective Patient is seen in follow-up for acute kidney injury on chronic kidney disease. Renal function a little better. Creatinine 2.6. Has a French catheter. Nonoliguric. Resting in bed. Daughter present at bedside. Will be going home on hospice today. Vital signs are stable. Blood pressure high. General: Awake. No acute distress. HEENT: On BiPAP. LUNGS: Breath sounds decreased. HEART: Rate and Rhythm are regular. ABDOMEN: Soft, obese. EXTREMITITES: No edema. Objective - Vital Signs Vital signs: Vital Signs Temp 98.9 F 01/20/22 07:15 Pulse 77 01/20/22 07:52 Resp 18 01/20/22 07:15 BP 182/73 01/20/22 07:15 Pulse Ox 96 01/20/22 07:15 Intake & Output 01/19/22 01/20/22 01/20/22 18:59 06:59 18:59 Intake Total 1110 Output Total 950 1450 Balance 160 -1450 Intake: Oral 800 Blood Product 310 Rc As-1 Unit 310 [id number] Output: Urine 950 1450 Other: Voiding Method Indwelling Catheter Indwelling Catheter - Labs CBC & Chem 7: 01/19/22 05:04 01/20/22 04:30 Labs: Abnormal Lab Results - Last 24 Hours (Table) 01/19/22 01/19/22 01/19/22 Range/Units 05:04 10:54 11:44 Sodium (135-145) mmol/L Carbon Dioxide (20.0-27.5) mmol/L BUN (9.0-27.0) mg/dL Creatinine (0.6-1.5) mg/dL Est GFR (CKD-EPI)AfAm (60.0-200.0) Est GFR (CKD-EPI)NonAf (60.0-200.0) BUN/Creatinine Ratio (12.00-20.00) Ratio POC Glucose (mg/dL) 193 H (75-99) mg/dL Calcium (8.7-10.3) mg/dL AST (13-35) U/L Total Protein (6.2-8.2) g/dL Albumin (3.8-4.9) g/dL Globulin (1.6-3.3) g/dL HDL Cholesterol 38.90 L (40.00-60.00) mg/dL Crossmatch See Detail 01/19/22 01/19/22 01/20/22 Range/Units 16:07 20:16 04:30 Sodium 146 H (135-145) mmol/L Carbon Dioxide 29.6 H (20.0-27.5) mmol/L BUN 61.2 H (9.0-27.0) mg/dL Creatinine 2.6 H (0.6-1.5) mg/dL Est GFR (CKD-EPI)AfAm 20.7 L (60.0-200.0) Est GFR (CKD-EPI)NonAf 17.8 L (60.0-200.0) BUN/Creatinine Ratio 23.54 H (12.00-20.00) Ratio POC Glucose (mg/dL) 207 H 117 H (75-99) mg/dL Calcium 8.6 L (8.7-10.3) mg/dL AST 8 L (13-35) U/L Total Protein 4.7 L (6.2-8.2) g/dL Albumin 3.2 L (3.8-4.9) g/dL Globulin 1.5 L (1.6-3.3) g/dL HDL Cholesterol (40.00-60.00) mg/dL Crossmatch 01/20/22 Range/Units 07:02 Sodium (135-145) mmol/L Carbon Dioxide (20.0-27.5) mmol/L BUN (9.0-27.0) mg/dL Creatinine (0.6-1.5) mg/dL Est GFR (CKD-EPI)AfAm (60.0-200.0) Est GFR (CKD-EPI)NonAf (60.0-200.0) BUN/Creatinine Ratio (12.00-20.00) Ratio POC Glucose (mg/dL) 131 H (75-99) mg/dL Calcium (8.7-10.3) mg/dL AST (13-35) U/L Total Protein (6.2-8.2) g/dL Albumin (3.8-4.9) g/dL Globulin (1.6-3.3) g/dL HDL Cholesterol (40.00-60.00) mg/dL Crossmatch Microbiology - Last 24 Hours (Table) 01/13/22 20:25 Blood Culture - Final Blood No Growth after 144 hours 01/13/22 20:08 Blood Culture - Final Blood No Growth after 144 hours Assessment and Plan Plan: Assessment: 1. Acute kidney injury secondary to ATN secondary to diuresis. Renal function is better. Creatinine 2.6. She also received IV contrast on 01/19/2022 for CTA. Renal ultrasound from December 2021 showed no evidence of hydronephrosis. 2. Chronic kidney disease stage IIIB secondary to diabetic kidney disease with baseline creatinine in the range of 1.5-2. 3. Chronic diastolic CHF with moderate to severe tricuspid regurgitation and pulmonary hypertension. 4. Acute hypoxic respiratory failure. 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 Questionable pneumonia. 5. History of COPD. 6. Anemia of chronic kidney disease. Iron deficiency noted. Status post IV iron yesterday. No active bleeding. Status post blood transfusion this admission. 7. Hypertension with chronic kidney disease. Blood pressure high this morning. 8. Questionable tremor versus myoclonic jerk. Brain CT and CTA injury from of the head and neck showed no acute changes. Neurology following. Plan: Add torsemide 20 mg daily. Patient will be going home on hospice today.
--- NOTE | 2022-01-20 10:58 | P.PN ---
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 And post COVID-19 inflammatory changes in the lungs On today's evaluation of 01/15/2022, the patient is stable. The patient is cur rently on 8 L of O2 by nasal cannula. Slightly less short of breath compared to yesterday. The patient was given IV Lasix yesterday and the patient has developed some interval worsening in the creatinine which is up to 2.5. Nevertheless, the overall fluid balance has been -1.1 L over the past 24 hours. On today's blood work, the BUN is at 56 with a creatinine of 2.5. His serum bicarbonate 29 with a potassium level of 4.6. The pro calcitonin level is at 4.08. The patient is contemplated to O2 by nasal cannula. The patient is on a combination of cefepime and Levaquin. Cultures still pending for now. Meanwhile, the patient was receiving Lasix 40 mg IV every 12 hours and I'm going to reduce the dose with close monitoring of the renal function to prevent any acute kidney injury on this patient. She is resting comfortably in bed. Reevaluated today on 01/16/22, patient is now on 10 L high flow cannula, O2 saturation is marginal. Found out today that her Lasix had been placed on hold. Patient is developing worsening renal picture, however her chest x-ray seems to be worsening with worsening interstitial edema and post inflammatory changes in the lungs related to previous history of COVID-[address] the patient back on diuretics, and I will cut down her IV fluid, we'll recommend an ultrasound of the chest to determine if she needs left-sided thoracentesis. However ultrasound did not show much fluid on the left lung, hence no need for thoracentesis. On 01/17/2022 patient seen in follow-up on medical surgical floor. She sits up in the recliner, appears to be in no acute distress. She was wearing a BiPAP support with FiO2 of 75% overnight, she was on 3 L of oxygen her pulse ox was 89%. Her FiO2 flow was increased to 6 L. She does not appear to be in any acute distress, no fever overnight. Gen. she appears weak. She has exertional dyspnea, but no chest discomfort, no increased cough or phlegm production. She remains on empiric antibiotics in the form of cefepime. Cultures have been negative, she's been afebrile since admission. Her white count was improving since admission, her last CBC showed normal white count of 5.6, hemoglobin was 7.9, platelet count was 64, yesterday's labs also showed worsening renal function and creatinine was up to 2.6, today's creatinine is 2.77, B1 is 74, electrolytes are within normal limits. Initially patient's diuretics have been stopped however patient does have a chronic diastolic CHF, and chronic kidney disease. She was placed back on Lasix 40 mg every 12 hours which was later decreased to 40 mg once daily, ultrasound of the chest did not pleural fluid pocket that was possible to drain, right pleural effusion pocket was not marked in the left pleural effusion pocket was only 1.7 cm. Patient did have 2 pro calcitonin values that were elevated at 3.87, and 4.08 initially on 01/14/2022, and 01/15/2022. She had been on cefepime. On 01/18/2022 patient seen in follow-up on medical surgical floor. She appears to be in no distress, resting in bed, appears fatigued, but no acute distress. She did wear BiPAP support last night, she is currently on 7 L of oxygen and her pulse ox is 90-94%, no fever or chills. Remains off diuretics, her creatinine is up to 2.87 on today's labs. Patient has been on diuretics. Appetite is poor, she denies any nausea vomiting or diarrhea, she's had no fever, no chest discomfort, no cough or phlegm production. Nephrology consultation has been noted. On 01/19/2022 patient seen in follow-up on medical surgical floor. Last night she had increased confusion, tremors, she was having difficulty getting words out. Brain CT showed no acute intracranial abnormality. Angiography CT of the brain showed no intracranial angiographic abnormality. Blood gas was also completed showing pO2 of 59, pCO2 is 59, and pH of 7.33, patient has been on BiPAP support with pressures of 12 and 6 and FiO2 of 50%, no unilateral weakness was noted, neurology consultation has been requested, please refer to the neurology consultation and progress note. Currently carotid Doppler study has been completed, awaiting report. This morning chest x-ray has been completed showing CHF with mild interstitial edema. Small left and trace right pleural effusions. Patient's diuretics had been placed on hold in view of worsening renal function, nephrology is following, today's creatinine is 2.9, ammonia level is 9, white count is 3.19, hemoglobin is 7.1. Chest had no fever or chills, she remains on empiric antibiotics with cefepime. Blood cultures have shown no growth, no cough, no chest congestion, no phlegm production. Today she is awake and alert, she is in no acute distress, breathing is nonlabored, lung sounds are diminished. She is afebrile, she is answering simple questions to the best of her ability with BiPAP mask on. The patient is seen today 01/20/2022 in follow-up on the regular medical floor. She is a bit more awake and alert. She remains on BiPAP 12/6 and 50% FiO2. Carotid Dopplers revealed less than 50% stenosis bilaterally. She is status post 1 unit of packed red blood cells so far this admission. Yesterday's hemoglobin was 7.1. Sodium 146. Potassium 4.5. BUN 61. Creatinine 2.6. Glucose 131. Calcium 8.6. AST 8. ALT 12. She is continued on DuoNeb inhalations, Symbicort, Singulair. Heparin for DVT prophylaxis. Family is at the bedside. They have changed her CODE STATUS to DO NOT RESUSCITATE. Possible home with hospice later today. Objective - Vital Signs Vital signs: Vital Signs Temp 98.9 F 01/20/22 07:15 Pulse 77 01/20/22 07:52 Resp 18 01/20/22 07:15 BP 182/73 01/20/22 07:15 Pulse Ox 96 01/20/22 07:15 Intake & Output 01/19/22 01/20/22 01/20/22 18:59 06:59 18:59 Intake Total 1110 Output Total 950 1450 Balance 160 -1450 Intake: Oral 800 Blood Product 310 Rc As-1 Unit 310 [id number] Output: Urine 950 1450 Other: Voiding Method Indwelling Catheter Indwelling Catheter - Exam GENERAL EXAM: Alert, weak, 71-year-old female patient on BiPAP support with pressures of 12 and 6 on FiO2 of 50%, with a pulse ox of 96% comfortable in no apparent distress. HEAD: Normocephalic/atraumatic. EYES: Normal reaction of pupils, equal size. Conjunctiva pink, sclera white. NOSE: Clear with pink turbinates. THROAT: No erythema or exudates. NECK: No masses, no JVD, no thyroid enlargement, no adenopathy. CHEST: No chest wall deformity. Symmetrical expansion. LUNGS: Equal air entry with bibasilar crackles CVS: Regular rate and rhythm, normal S1 and S2, no gallops, no murmurs, no rubs ABDOMEN: Soft, nontender. No hepatosplenomegaly, normal bowel sounds, no guarding or rigidity. EXTREMITIES: No clubbing, no edema no cyanosis, 2+ pulses and upper and lower extremities. MUSCULOSKELETAL: Muscle strength and tone normal. SPINE: No scoliosis or deformity SKIN: No rashes CENTRAL NERVOUS SYSTEM: No focal deficits, tone is normal in all 4 extremities. PSYCHIATRIC: Alert and oriented -3. Appropriate affect. Intact judgment and insight. - Labs CBC & Chem 7: 01/19/22 05:04 01/20/22 04:30 Labs: Abnormal Lab Results - Last 24 Hours (Table) 01/19/22 01/19/22 01/19/22 Range/Units 05:04 10:54 11:44 Sodium (135-145) mmol/L Carbon Dioxide (20.0-27.5) mmol/L BUN (9.0-27.0) mg/dL Creatinine (0.6-1.5) mg/dL Est GFR (CKD-EPI)AfAm (60.0-200.0) Est GFR (CKD-EPI)NonAf (60.0-200.0) BUN/Creatinine Ratio (12.00-20.00) Ratio POC Glucose (mg/dL) 193 H (75-99) mg/dL Calcium (8.7-10.3) mg/dL AST (13-35) U/L Total Protein (6.2-8.2) g/dL Albumin (3.8-4.9) g/dL Globulin (1.6-3.3) g/dL HDL Cholesterol 38.90 L (40.00-60.00) mg/dL Crossmatch See Detail 01/19/22 01/19/22 01/20/22 Range/Units 16:07 20:16 04:30 Sodium 146 H (135-145) mmol/L Carbon Dioxide 29.6 H (20.0-27.5) mmol/L BUN 61.2 H (9.0-27.0) mg/dL Creatinine 2.6 H (0.6-1.5) mg/dL Est GFR (CKD-EPI)AfAm 20.7 L (60.0-200.0) Est GFR (CKD-EPI)NonAf 17.8 L (60.0-200.0) BUN/Creatinine Ratio 23.54 H (12.00-20.00) Ratio POC Glucose (mg/dL) 207 H 117 H (75-99) mg/dL Calcium 8.6 L (8.7-10.3) mg/dL AST 8 L (13-35) U/L Total Protein 4.7 L (6.2-8.2) g/dL Albumin 3.2 L (3.8-4.9) g/dL Globulin 1.5 L (1.6-3.3) g/dL HDL Cholesterol (40.00-60.00) mg/dL Crossmatch 01/20/22 Range/Units 07:02 Sodium (135-145) mmol/L Carbon Dioxide (20.0-27.5) mmol/L BUN (9.0-27.0) mg/dL Creatinine (0.6-1.5) mg/dL Est GFR (CKD-EPI)AfAm (60.0-200.0) Est GFR (CKD-EPI)NonAf (60.0-200.0) BUN/Creatinine Ratio (12.00-20.00) Ratio POC Glucose (mg/dL) 131 H (75-99) mg/dL Calcium (8.7-10.3) mg/dL AST (13-35) U/L Total Protein (6.2-8.2) g/dL Albumin (3.8-4.9) g/dL Globulin (1.6-3.3) g/dL HDL Cholesterol (40.00-60.00) mg/dL Crossmatch Microbiology - Last 24 Hours (Table) 01/13/22 20:25 Blood Culture - Final Blood No Growth after 144 hours 01/13/22 20:08 Blood Culture - Final Blood No Growth after 144 hours Assessment and Plan Assessment: 1 Acute on chronic hypoxic respiratory failure, multifactorial, related to acute on chronic diastolic CHF, 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 Patient has recent history of urinary tract infection related to Enterococcus faecalis and patient had completed a course of daptomycin 2 Acute on chronic kidney injury 3 Chronic hypoxic respiratory failure related to post COVID syndrome since September 2021 patient had been on oxygen at 6 L/m 4 Prior history of acute respiratory distress syndrome requiring prolonged intubation and mechanical ventilation and eventual tracheostomy tube insertion and subsequent decannulation 5 History of severe COPD with baseline FEV1 of 41% of predicted 6 History of hypothyroidism 7 Diabetes mellitus type 2 8 History of hypertension 9 Chronic kidney disease stage IIIB 10 Moderately severe pulmonary hypertension 11 Morbid obesity with BMI of 38.4 kg/m 12 Recent hospitalization for acute on chronic CHF with diastolic dysfunction, urinary tract infection related to Enterococcus faecalis 13 Altered mental status, multifactorial, related to hypoxia, toxic metabolic encephalopathy. Carotid Dopplers revealed less than 50% stenosis bilaterally . 14 Tremors, myoclonus, neurology is on the case Plan: The patient was seen and evaluated Remains on BiPAP 09/12 and 50% Her family is at the bedside She is a DO NOT RESUSCITATE/DO NOT INTUBATE CODE STATUS Plan is for home with hospice possibly today We will sign off the case I have personally seen and examined the patient, performed the documentation and the assessment and plan as written. Number of minutes spent on the visit: 10.
[2022-01-20] MEDS: TORSEMIDE 20 MG TAB PO SCH ×2 (11:05→16:27)
[2022-01-20 11:31] LABS: Glucose,Whole Blood 204 mg/dL (75-99)
--- NOTE | 2022-01-20 11:51 | CDI ---
Documentation Clarification Form Date: 01/20/2022 11:14:36 AM From: Brianna Napoles RN, CCDS Admit Date: 01/13/2022 09:21:00 PM Patient Name: Nicole Moran Visit Number: [id number] Discharge Date: ATTENTION: The Clinical Documentation Specialists (CDI) and [facility] Coding Staff appreciate your assistance in clarifying documentation. Please respond to the clarification below the line at the bottom and electronically sign. The CDI & [facility] Coding staff will review the response and follow-up if needed. Please note: Queries are made part of the Legal Health Record. If you have any questions, please contact the author of this message via ITS. Dr. Sathish Banks The patient presented with the following clinical indicators. Additional clarification regarding sepsis etiology/cause of the clinical indicators is requested. 01/15 "This could be related to her sepsis". documented in the progress note starting on 01/15/22, but not in the assessment or plan. History/Risk Factors: COPD, Diabetes Mellitus, Hypertension, ARDS, Former smoker Clinical Indicators: 71-year-old female present with worsening dyspnea. Leukocytosis of 20.4, Creatinine 1.44 compared to baseline of 1.8-2.2. Chest x- ray worsening of scattered airspace opacity projecting over the heart, correlate for pneumonia. CHF is not excluded 01/13 EKG: Sinus rhythm with sinus arrhythmia at [address] T changes. 01/13 Vital sign: 123/68 86 24 98.9 86 % 6/L NC, 08/16/69 88 20 99.3 94 % Non- Rebreather FIO2 rate 10 01/13 WBC 20.4, Neutrophils 19.10, Lactic acid 0.7, Trop 0.062, BNP 4850 01/13 Blood cultures: No growth 01/15 UA: Ur Leukocyte Esterase negative; urine bacteria rare Treatment: Levaquin 750 MB IVPB @24 HRS 01/14-01/15 500 MG PO Q 48 hrs Cefepime HCL 2 GM IVPB Q 12, 01/14-01/15 then 1GM IVPB Q 12 01/15-01/20 In your professional opinion, please clarify if these findings signify one of the following conditions: [ ] Sepsis POA [ ] Sepsis, Not POA [ ] Sepsis ruled out [ ] Other, please specify [ ] Unable to determine SIRS Criteria: 2 or more of the following may indicate SIRS -Temperature < 96.8F (36C) or > 101.0F (38.3C) -Heart Rate > 90 bpm -Respiratory Rate > 20 breaths/min or PaCO2 < 32 mmHg -White Blood Cell Count > 12,000 or < 4,000 cells/mm3 or > 10% bands (Template Last Reviewed: November 2020) Sepsis POA MTDD
[2022-01-20 14:29] VITALS: BP 180/76; PULSE 78; TEMP 98.2
--- NOTE | 2022-01-20 16:11 | P.PN ---
Subjective Progress Note Date: 01/20/22 The patient is seen at bedside and is accompanied by her daughter who is at bedside and they decided to consult hospice and daughter wants to take her home and be comfortable. Objective - Vital Signs Vital signs: Vital Signs Temp 98.2 F 01/20/22 14:00 Pulse 78 01/20/22 14:00 Resp 18 01/20/22 14:00 BP 180/76 01/20/22 14:00 Pulse Ox 96 01/20/22 14:00 Intake & Output 01/19/22 01/20/22 01/20/22 18:59 06:59 18:59 Intake Total 1110 Output Total 950 1450 Balance 160 -1450 Intake: Oral 800 Blood Product 310 Rc As-1 Unit 310 [id number] Output: Urine 950 1450 Other: Voiding Method Indwelling Catheter Indwelling Catheter Indwelling Catheter - Exam GENERAL: The patient is lying in bed and does not seem in acute distress. LUNG: Is on BIPAP machine. NEUROLOGICAL: Limited because of patient's condition/cooperation. Higher mental function: The patient is severely drowsy but is awakeable to v oice. She is not verbally responding or following commands. Cranial nerves: No facial droop. Otherwise rest is limited. Motor: Gait is deferred since on BiPAP. The strength is hard to assess and moving bilateral arms spontaneously and waving. Cerebellum: Unable to assess. Sensation: Unable to assess. WORK-UP: TSH is 5.150 Lipid panel is a triglyceride is 112, cholesterol is 89, LDL is 27 and HDL of 38. CT of the head on 01/19/2022 his past midnight as reported as cerebral atrophy. No acute abnormality. Brain not changed compared to old exam. CT angiography of the head and neck was reported as no intracranial angiographic abnormality. Bilateral metal artifact at the carotid artery bifurcation consistent with stents. No evidence of occlusion. For this is difficult to evaluate. Correlation with the patient's surgical history needed. Carotid duplex: Is reported as less than 50% stenosis of bilateral carotid systems. No evaluation of the vertebral arteries. - Labs CBC & Chem 7: 01/19/22 05:04 01/20/22 04:30 Labs: Abnormal Lab Results - Last 24 Hours (Table) 01/19/22 01/19/22 01/19/22 Range/Units 10:54 16:07 20:16 Sodium (135-145) mmol/L Carbon Dioxide (20.0-27.5) mmol/L BUN (9.0-27.0) mg/dL Creatinine (0.6-1.5) mg/dL Est GFR (CKD-EPI)AfAm (60.0-200.0) Est GFR (CKD-EPI)NonAf (60.0-200.0) BUN/Creatinine Ratio (12.00-20.00) Ratio POC Glucose (mg/dL) 207 H 117 H (75-99) mg/dL Calcium (8.7-10.3) mg/dL AST (13-35) U/L Total Protein (6.2-8.2) g/dL Albumin (3.8-4.9) g/dL Globulin (1.6-3.3) g/dL Crossmatch See Detail 01/20/22 01/20/22 01/20/22 Range/Units 04:30 07:02 11:29 Sodium 146 H (135-145) mmol/L Carbon Dioxide 29.6 H (20.0-27.5) mmol/L BUN 61.2 H (9.0-27.0) mg/dL Creatinine 2.6 H (0.6-1.5) mg/dL Est GFR (CKD-EPI)AfAm 20.7 L (60.0-200.0) Est GFR (CKD-EPI)NonAf 17.8 L (60.0-200.0) BUN/Creatinine Ratio 23.54 H (12.00-20.00) Ratio POC Glucose (mg/dL) 131 H 204 H (75-99) mg/dL Calcium 8.6 L (8.7-10.3) mg/dL AST 8 L (13-35) U/L Total Protein 4.7 L (6.2-8.2) g/dL Albumin 3.2 L (3.8-4.9) g/dL Globulin 1.5 L (1.6-3.3) g/dL Crossmatch Microbiology - Last 24 Hours (Table) 01/13/22 20:25 Blood Culture - Final Blood No Growth after 144 hours 01/13/22 20:08 Blood Culture - Final Blood No Growth after 144 hours Assessment and Plan Assessment: Altered mental status due to multifactorial: Hypoxic encephalopathy as well as toxic-metabolic encephalopathy with possible due to underlying pneumonia Myoclonus due to above. ?Reported right sided weakness by overnight nurse on 01/18/2022 (on my exam it was hard to appreciate it but there is limitation because of her encephalopathy). Rule out stroke. Initial CT brain/CTA are unremarkable. Acute on chronic kidney insufficiency Acute on chronic hypoxic respiratory failure History of hypertension History of congestive heart failure with diastolic dysfunction Diabetes mellitus History of COVID-19 pneumonia Plan: Continue ASA 81mg daily. Patient is on pravastatin 40 mg daily at bedtime. MRI of the brain in the routine EEG could not be done and per the daughter, she wants to make the patient home hospice. Every 4 hours neuro checks PT and OT are consulted Pulmonary team is on board Nephrology team is on board We'll defer the rest of the medical management to the primary team. DVT prophylaxis the patient is on subcu heparin 5000 units every 12 hours. The plan was discussed with the patient's daughter (who is at bedside) and her nurse. Daughter's wishes is for the patient to be comfortable and is going to make the patient home hospice. There is no further neurological workup. Please notify neurology if any further concerns. Jaleel Mazariegos M.D. Neuro-hospitalist Time with Patient: Less than 30
== END 2022-01-20 16:58 | disposition hospice, home (50) | DRG 871 ==
LOC: EC 19:44 → 4SSUR 21:21
PROVIDERS: ADMIT Family Medicine; ATTEND Family Medicine
PROC: 5A09557 Assistance with Respiratory Ventilation, Greater than 96 Consecutive Hours, Continuous Positive Airway Pressure (ICD-10-PCS; principal; 2022-01-15)
PROC: 30233N1 Transfusion of Nonautologous Red Blood Cells into Peripheral Vein, Percutaneous Approach (ICD-10-PCS; 2022-01-19)
PROC: 5A0935A Assistance with Respiratory Ventilation, Less than 24 Consecutive Hours, High Flow/Velocity Cannula (ICD-10-PCS; 2022-01-20)
DX: A41.9 Sepsis, unspecified organism (principal); J18.9 Pneumonia, unspecified organism; J96.21 Acute and chronic respiratory failure with hypoxia; J96.22 Acute and chronic respiratory failure with hypercapnia; I50.33 Acute on chronic diastolic (congestive) heart failure; N17.0 Acute kidney failure with tubular necrosis; G92.8 Other toxic encephalopathy; I13.0 Hypertensive heart and chronic kidney disease with heart failure and stage 1 through stage 4 chronic kidney disease, or unspecified chronic kidney disease; J44.0 Chronic obstructive pulmonary disease with (acute) lower respiratory infection; J44.1 Chronic obstructive pulmonary disease with (acute) exacerbation; G93.1 Anoxic brain damage, not elsewhere classified; N39.0 Urinary tract infection, site not specified; I27.20 Pulmonary hypertension, unspecified; D63.1 Anemia in chronic kidney disease; I95.9 Hypotension, unspecified; D69.6 Thrombocytopenia, unspecified; G25.3 Myoclonus; J84.10 Pulmonary fibrosis, unspecified; E11.22 Type 2 diabetes mellitus with diabetic chronic kidney disease; N18.32 Chronic kidney disease, stage 3b; G31.9 Degenerative disease of nervous system, unspecified; E66.01 Morbid (severe) obesity due to excess calories; Z79.4 Long term (current) use of insulin; Z66 Do not resuscitate; Z51.5 Encounter for palliative care; I65.23 Occlusion and stenosis of bilateral carotid arteries; E03.9 Hypothyroidism, unspecified; Y95 Nosocomial condition; U09.9 Post COVID-19 condition, unspecified; B95.2 Enterococcus as the cause of diseases classified elsewhere; E61.1 Iron deficiency; I07.1 Rheumatic tricuspid insufficiency; T50.2X5A Adverse effect of carbonic-anhydrase inhibitors, benzothiadiazides and other diuretics, initial encounter; G89.29 Other chronic pain; M54.50 Low back pain, unspecified; M25.569 Pain in unspecified knee; F41.9 Anxiety disorder, unspecified; Z68.38 Body mass index [BMI] 38.0-38.9, adult; Z79.51 Long term (current) use of inhaled steroids; Z79.890 Hormone replacement therapy; Z79.899 Other long term (current) drug therapy; Z90.49 Acquired absence of other specified parts of digestive tract; Z87.19 Personal history of other diseases of the digestive system; Z90.710 Acquired absence of both cervix and uterus; Z87.440 Personal history of urinary (tract) infections; Z87.891 Personal history of nicotine dependence; Z87.01 Personal history of pneumonia (recurrent); Z95.828 Presence of other vascular implants and grafts; Z98.890 Other specified postprocedural states; Z71.3 Dietary counseling and surveillance; Z88.0 Allergy status to penicillin; Z88.8 Allergy status to other drugs, medicaments and biological substances; Z82.49 Family history of ischemic heart disease and other diseases of the circulatory system; Z83.3 Family history of diabetes mellitus; Z82.0 Family history of epilepsy and other diseases of the nervous system
CPT/HCPCS: 36415; 36600; 70450; 70496; 70498; 71045; 71046; 74018; 76604; 76705; 80048; 80053; 80061; 80076; 81001; 82140; 82607; 82728; 82805; 83540; 83550; 83605; 83735; 83880; 84145; 84443; 84484; 85025; 85610; 85730; 86850; 86900; 86901; 86920; 87040; 93005; 93306; 93880; 94640; 94644; 94660; 94760; 96365; 96366; 96375; 99291